=== PATIENT | female | born 1950 | race Caucasian/White ===

== ENCOUNTER 2022-11-05 10:08 | Outpatient (OUT) | payer MEDICARE, SELFPAY ==
--- NOTE | 2022-11-05 10:11 | CT_ITS ---
[address] [address] Patient Name: SD REHMAN MRN: [id number] date: 1950 Sex: F Assigned Patient Location: CT Current Patient Location: CT Accession/Order Number: [id number] Exam Date: 11/05/2022 10:15 Report Date: 11/05/2022 11:03 At the request of: BREANNE GAO Procedure: CT lung screening low-dose EXAMINATION: CT lung screening low-dose HISTORY: Z12.2 Lunch cancer screening, F17.219 Nicotine dependence COMPARISON: CT chest 11/04/2021 TECHNIQUE: Axial, Coronal, and Sagittal images were created without the administration of IV contrast material. Dose reduction techniques were achieved by using automated exposure control and/or adjustment of mA and/or kV according to patient size and/or use of iterative reconstruction technique. FINDINGS: LUNGS: Stable nodule/scarring within lateral right upper lobe since at least 2018. No new nodules or infiltrates. Mild emphysematous changes. PLEURA: No mass, effusion, or pneumothorax. VASCULATURE: No abnormality. YOGESH: No mass or pathologic adenopathy. MEDIASTINUM: No mass or pathologic adenopathy. CARDIAC: Atherosclerotic coronary artery disease. AORTA: No aneurysm or dissection. CHEST WALL: No mass or axillary adenopathy BONES: Marked degenerative changes the glenohumeral joints. Multilevel degenerative changes of thoracic spine; no fracture. LIMITED ABDOMEN: Grossly stable bilateral renal lesions/cysts only partially included on today's study. OTHER: Negative. CT/CT lung screening low-dose IMPRESSION: 1. Lung-RADS 2- Benign Appearance or Behavior. Nodules with a very low likelihood of becoming a clinically active cancer due to size or lack of growth. Follow-up CT Chest in 1 year. Electronically authenticated by: TERESA AZUL Date: 11/05/2022 11:03
== END 2022-11-05 10:09 | disposition home or self-care (01) ==
LOC: CT 10:09
PROVIDERS: PCP Family Medicine; Visit Provider Internal Medicine
DX: F17.219 Nicotine dependence, cigarettes, with unspecified nicotine-induced disorders (principal)
CPT/HCPCS: 71271

== ENCOUNTER 2022-12-11 09:36 | Outpatient (OUT) | payer MEDICARE, SELFPAY ==
[2022-12-11 10:07] LABS: Hematocrit 39.6 % (36.0-48.0); Hemoglobin 12.4 g/dL (12.0-16.0)
[2022-12-11 11:38] LABS: Albumin Level 3.1 g/dL (3.4-5.0); Anion Gap 14.7; BUN Creatinine Ratio 20.4; Calcium 9.3 mg/dL (8.5-10.1); Carbon Dioxide 22.5 mmol/L (21.0-32.0); Chloride 104 mmol/L (98-107); Estimated GFR (African America 46 (>=60); Estimated GFR (Non-African Ame 38 (>=60); Glucose 110 mg/dL (74-106); Phosphorus 3.2 mg/dL (2.6-4.7); Potassium 4.2 mmol/L (3.5-5.1); Sodium 137 mmol/L (136-145); Uric Acid 5.5 mg/dL (2.6-6.0)
[2022-12-11 11:43] LABS: Percent Iron Saturation 15.6 %
[2022-12-11 16:14] LABS: Mean Corpuscular HGB Conc 31.3 g/dL (29.9-35.2); Platelet Count 367 10^3/uL (150-450); Red Blood Count 3.91 10^6/uL (4.20-5.40); Red Cell Distribution Width 15.4 % (11.0-15.0); White Blood Count 10.1 10^3/uL (4.0-11.0)
[2022-12-11 16:17] LABS: Hematocrit 39.6 % (36.0-48.0); Hemoglobin 12.4 g/dL (12.0-16.0)
[2022-12-12 14:08] LABS: PTH, Intact 93 pg/mL (15-65)
== END 2022-12-11 09:37 | disposition home or self-care (01) ==
LOC: LAB 09:36
PROVIDERS: PCP Family Medicine; Visit Provider Internal Medicine
DX: I12.9 Hypertensive chronic kidney disease with stage 1 through stage 4 chronic kidney disease, or unspecified chronic kidney disease (principal); N18.32 Chronic kidney disease, stage 3b; N25.81 Secondary hyperparathyroidism of renal origin; M10.9 Gout, unspecified; R80.9 Proteinuria, unspecified; D63.1 Anemia in chronic kidney disease
CPT/HCPCS: 36415; 80069; 81001; 82306; 82570; 82728; 83540; 83550; 83970; 84156; 84550; 85014; 85018; 85027

== ENCOUNTER 2023-08-20 12:50 | Outpatient (OUT) | payer MEDICARE, SELFPAY ==
[2023-08-20 13:33] LABS: Hematocrit 44.1 % (36.0-48.0); Hemoglobin 14.2 g/dL (12.0-16.0); Mean Corpuscular HGB Conc 32.2 g/dL (29.9-35.2); Mean Corpuscular Hemoglobin 32.2 pg (26.7-34.0); Mean Platelet Volume 9.8 fL (9.5-13.5); Platelet Count 388 10^3/uL (150-450); Red Blood Count 4.41 10^6/uL (4.20-5.40); White Blood Count 13.5 10^3/uL (4.0-11.0)
[2023-08-20 13:36] LABS: Albumin Level 3.5 g/dL (3.4-5.0); Anion Gap 17.3; BUN Creatinine Ratio 17.1; Calcium 9.2 mg/dL (8.5-10.1); Carbon Dioxide 21.2 mmol/L (21.0-32.0); Chloride 100 mmol/L (98-107); Estimated GFR (African America 35 (>=60); Estimated GFR (Non-African Ame 29 (>=60); Glucose 107 mg/dL (74-106); Phosphorus 3.1 mg/dL (2.6-4.7); Potassium 4.5 mmol/L (3.5-5.1); Sodium 134 mmol/L (136-145)
[2023-08-20 13:36] LABS: Bilirubin Urine NEGATIVE (NEGATIVE); Blood Urine NEGATIVE (NEGATIVE); Clarity Urine CLEAR (CLEAR); Color Urine LT. YELLOW (YELLOW); Glucose Urine UA NEGATIVE (NEGATIVE); Ketones Urine NEGATIVE (NEGATIVE); Leukocyte Esterase Urine NEGATIVE (NEGATIVE); Nitrite Urine NEGATIVE (NEGATIVE); Protein Urine NEGATIVE (NEG/TRACE); Urobilinogen Urine 0.2 EU/dL (0.2-1.0); pH Urine 5.5 (5.0-9.0)
[2023-08-20 14:18] LABS: Creatinine Urine Random 41.92 mg/dL (20.00-300.00); Protein Creatinine Ratio Urine 0.44; Total Protein Urine Random 18.5 mg/dL (<=11.9)
[2023-08-20 14:51] LABS: Bacteria Urine NONE SEEN #/HPF (NONE SEEN); Cast Seen? NONE SEEN #/LPF (NONE SEEN); Crystals Seen? None Seen #/HPF (None Seen); Mucus Urine NONE SEEN (NONE SEEN); RBC Urine NONE SEEN #/HPF (0-2); Squamous Epithelial Cell Urine NONE SEEN #/LPF (NONE/RARE); WBC Urine NONE SEEN #/HPF (NONE SEEN)
[2023-08-20 15:23] LABS: Percent Iron Saturation 18.8 %
[2023-08-21 11:11] LABS: PTH, Intact 104 pg/mL (15-65)
== END 2023-08-20 12:51 | disposition home or self-care (01) ==
PROVIDERS: PCP Family Medicine; Visit Provider Internal Medicine
DX: I12.9 Hypertensive chronic kidney disease with stage 1 through stage 4 chronic kidney disease, or unspecified chronic kidney disease (principal); N18.32 Chronic kidney disease, stage 3b; N25.81 Secondary hyperparathyroidism of renal origin; M10.9 Gout, unspecified; R80.9 Proteinuria, unspecified; E61.1 Iron deficiency
CPT/HCPCS: 36415; 80069; 81001; 82306; 82570; 82728; 83540; 83550; 83735; 83970; 84156; 84550; 85027

== ENCOUNTER 2023-08-31 13:46 | Outpatient (OUT) | payer MEDICARE, SELFPAY ==
--- NOTE | 2023-08-31 13:50 | MM_ITS ---
Patient Name: SD REHMAN MR#: [id number] : 1950 Exam Date: 08/31/2023 Ordering Doctor: DR ASH ODOM RADIOLOGY REPORT PROCEDURE: MM TOMOSYNTHESIS SCREENING BI COMPARISON: MG MAMM LAKESHIA SCRN W CAD DIG, 02/15/2013. MG MAMM DX 3D RT CAD, 07/23/2021. INDICATIONS: Screening Calculator Name NCI Breast Cancer Risk Assessment Tool 5 Year Breast Cancer Risk 2.10% Lifetime Breast Cancer Risk 5.40% Personal Breast Cancer No Personal Ovarian Cancer No Treatments None Family Cancers Father with lung cancer at age ~60. LOCATION: [facility] BREAST COMPOSITION: The breasts are heterogeneously dense,which may obscure small masses. FINDINGS: DIAGNOSTIC CATEGORY 0--INCOMPLETE: NEED ADDITIONAL IMAGING EVALUATION. Bilateral nodular parenchymal pattern significantly changed from prior exam. Two new focal nodules are identified in the right breast 6 o'clock position 1 in the anterior breast a 2nd in the mid breast. Spot imaging and ultrasound follow-up is recommended New scattered nodularity with calcifications identified in the mid inner half of the left breast. Spot imaging and ultrasound follow-up recommended RECOMMENDATIONS: ADDITIONAL MAMMOGRAPHIC VIEWS REQUIRED: BILATERAL BREASTS - spot compression views ULTRASOUND: BILATERAL BREASTS PLEASE NOTE: A NORMAL MAMMOGRAM DOES NOT EXCLUDE THE POSSIBILITY OF BREAST CANCER. A CLINICALLY SUSPICIOUS PALPABLE LUMP SHOULD BE BIOPSIED. Dictated by: Madan Bocanegra MD on 08/31/2023 at 14:52 Approved by: Madan Bocanegra MD on 08/31/2023 at 15:00
== END 2023-08-31 13:47 | disposition home or self-care (01) ==
LOC: MAMMO 13:46
PROVIDERS: PCP Family Medicine; Visit Provider Family Medicine
DX: Z12.31 Encounter for screening mammogram for malignant neoplasm of breast (principal); Z80.1 Family history of malignant neoplasm of trachea, bronchus and lung; N63.15 Unspecified lump in the right breast, overlapping quadrants; N63.25 Unspecified lump in the left breast, overlapping quadrants
CPT/HCPCS: 77063; 77067

== ENCOUNTER 2023-09-08 13:39 | Outpatient (OUT) | payer MEDICARE, SELFPAY ==
--- NOTE | 2023-09-08 13:44 | US_ITS ---
Patient Name: SD REHMAN MR#: [id number] : 1950 Exam Date: 09/08/2023 Ordering Doctor: DR ASH ODOM RADIOLOGY REPORT PROCEDURE: MM DIAGNOSTIC MAMMO BI, 09/08/2023, 13:46 US BREAST BI LIMITED, 09/08/2023, 14:08 COMPARISON: MM TOMOSYNTHESIS SCREENING BI, 08/31/2023. MG MAMM DX 3D RT CAD, 07/23/2021. MG MAMM LAKESHIA SCRN W CAD DIG, 02/15/2013. INDICATIONS: Abnormal Mammogram Calculator Name NCI Breast Cancer Risk Assessment Tool 5 Year Breast Cancer Risk 2.10% Lifetime Breast Cancer Risk 5.40% Personal Breast Cancer No Personal Ovarian Cancer No Treatments None Family Cancers Father with lung cancer at age ~60. LOCATION: [facility] BREAST COMPOSITION: The breasts are heterogeneously dense,which may obscure small masses. FINDINGS: DIAGNOSTIC CATEGORY 4--SUSPICIOUS FOR MALIGNANCY. FINDING DOES NOT EXHIBIT CLASSIC FINDINGS OF BREAST CANCER: RIGHT BREAST: Within the retroareolar region is a 7 x 6 x 5 mm heterogeneous mass with adjacent feeder vessels extending into the structure and slight posterior shadowing. Ultrasound-guided core biopsy is recommended. Additional hypoechoic oval structures favoring cysts are seen within this area. LEFT BREAST: Several small hypoechoic structures suspected represent cysts and slightly complex cyst at the 9 o'clock position. Small hyperechoic area within the fat suspected to represent a lipoma. No additional evaluation recommended at this time. RECOMMENDATIONS: ULTRASOUND-GUIDED CORE BIOPSY: RIGHT BREAST PLEASE NOTE: A NORMAL MAMMOGRAM DOES NOT EXCLUDE THE POSSIBILITY OF BREAST CANCER. A CLINICALLY SUSPICIOUS PALPABLE LUMP SHOULD BE BIOPSIED. Dictated by: Trey Ramirez M.D. on 09/08/2023 at 14:47 Approved by: Trey Ramirez M.D. on 09/08/2023 at 14:54
--- OUTSIDE RECORDS SUMMARY | 2023-09-08 14:13 | XMS_ITS | CCD ---
Author Organization [facility] Care Team Providers Care Application Security Engineer Name Role Phone PHYSICIAN, DEFAULT Unavailable Unavailable PHYSICIAN, DEFAULT Unavailable Unavailable Malina Lafleur Unavailable Odell Jones Unavailable Curtis Watkins Unavailable Jignesh He Attending Unavailable PATRICK ODOM Primary Care Unavailable Jignesh He Admitting Unavailable Jignesh He Attending Unavailable PATRICK ODOM Primary Care Unavailable Jignesh He Admitting Unavailable Furlong Patrick SANTA Primary Care Provider Ruby, Olivia R Primary Care Provider VITA JOSHI Referring Unavailable VITA JOSHI Attending Unavailable BEHZADLOPATRICK MILLER Primary Care Unavailable VITA JOSHI Attending Unavailable BEHZADLONGPATRICK Primary Care Unavailable MADELYN, VITA Referring Unavailable VITA JOSHI Attending Unavailable BEHZADLOPATRICK MILLER Primary Care Unavailable MADELYN, VITA Referring Unavailable ABHYANKARKRISHNAEK Attending Unavailable KUNS, OLIVIA R Primary Care Unavailable ABHYANKAR DENNIS Referring Unavailable KUNS, OLIVIA R Primary Care Unavailable KAREN, ODELL Referring Unavailable KUNS, OLIVIA R Primary Care Unavailable ABHYANKAR, DENNIS Attending Unavailable SUSI .MOHAMUD Attending Unavailable LEI, DR PATRICK Roche Primary Care Unavailable SUSI .MOHAMUD Admitting Unavailable SUSI .MOHAMUD Consulting Unavailable TIMMIS, DR IZAGUIRRE Consulting Unavailable TIMMIS, DR IZAGUIRRE Attending Unavailable TIMROBINA, DR IZAGUIRRE Admitting Unavailable LEI, DR PATRICK Roche Primary Care Unavailable DAY GALICIA Consulting Unavailable MISC, DR CHANG Admitting Unavailable MISC, DR CHANG Consulting Unavailable MISC, DR CHANG Attending Unavailable FURLONG, DR PATRICK Roche Primary Care Unavailable KAREN, ODELL Admitting Unavailable KAREN, ODELL Consulting Unavailable KAREN, ODELL Attending Unavailable FURLONG, DR PATRICK Roche Primary Care Unavailable FURLONG, DR PATRICK Roche Primary Care Unavailable SUSI ., MOHAMUD Admitting Unavailable SUSI ., MOHAMUD Consulting Unavailable SUSI ., MOHAMUD Attending Unavailable SUSI ., MOHAMUD Admitting Unavailable FURLONG, DR PATRICK Roche Primary Care Unavailable SUSI ., MOHAMUD Consulting Unavailable SUSI ., MOHAMUD Attending Unavailable KAREN, ODELL Admitting Unavailable KAREN, ODELL Attending Unavailable FURLONG, DR PATRICK Roche Primary Care Unavailable JORGE, HENOK Consulting Unavailable JORGE, HENOK Attending Unavailable JORGE, HENOK Admitting Unavailable FURLONG, DR PATRICK Roche Primary Care Unavailable KAREN, ODELL Admitting Unavailable KAREN, ODELL Consulting Unavailable KAREN, ODELL Attending Unavailable FURLONG, DR PATRICK Roche Primary Care Unavailable TIMMIS, DR IZAGUIRRE Consulting Unavailable TIMMIS, DR IZAGUIRRE Admitting Unavailable TIMMIS, DR IZAGUIRRE Attending Unavailable FURLONG, DR PATRICK Roche Primary Care Unavailable JESSE, CHRIS Attending Unavailable JESSE, CHRIS Admitting Unavailable FURLONG, DR PATRICK Roche Primary Care Unavailable ZIEBER, DR TERESA Akbar Consulting Unavailable JESSE, CHRIS Consulting Unavailable KUNS, DR OLIVIA Akbar Attending Unavailable KUNS, DR OLIVIA Akbar Admitting Unavailable KUNS, DR OLIVIA Akbar Primary Care Unavailable ZIEBER, DR TERESA Akbar Consulting Unavailable KUNS, DR OLIVIA Akbar Consulting Unavailable KAREN, ODELL Admitting Unavailable KAREN, ODELL Consulting Unavailable KAREN, ODELL Attending Unavailable FURLONG, DR PATRICK Roche Primary Care Unavailable SUSI ., MOHAMUD Admitting Unavailable FURLONG, DR PATRICK Roche Primary Care Unavailable SUSI ., MOHAMUD Consulting Unavailable SUSI ., MOHAMUD Attending Unavailable KAREN, ODELL Admitting Unavailable KAREN, ODELL Consulting Unavailable KAREN, ODELL Attending Unavailable FURLONG, DR PATRICK Roche Primary Care Unavailable FURLONG, DR PATRICK Roche Consulting Unavailable FURLONG, DR PATRICK Roche Primary Care Unavailable SAMSA ., BREANNE Attending Unavailable SAMSA ., BREANNE Admitting Unavailable SAMSA ., BREANNE Consulting Unavailable JESSE, CHRIS Admitting Unavailable JESSE, CHRIS Consulting Unavailable JESSE, CHRIS Attending Unavailable FURLONG, DR PATRICK Roche Primary Care Unavailable FURLONG, DR PATRICK Roche Primary Care Unavailable MENDOZA, DR ELE Consulting Unavailable MENDOZA, DR LEE Attending Unavailable MENDOZA, DR LEE Admitting Unavailable HAY ., DR GAYLE Consulting Unavailable HAY ., DR GAYLE Attending Unavailable HAY ., DR GAYLE Admitting Unavailable FURLONG, DR PATRICK Roche Primary Care Unavailable ASHLEY WEAVER Consulting Unavailable NEFCY, NGHIA Consulting Unavailable LENNYROBYN Consulting Unavailable MISC, DR CHANG Attending Unavailable MISC, DR CHANG Admitting Unavailable FURLONG, DR PATRICK Roche Primary Care Unavailable FURLONG, DR PATRICK Roche Primary Care Unavailable SAMSA ., BREANNE Consulting Unavailable SAMSA ., BREANNE Attending Unavailable SAMSA ., BREANNE Admitting Unavailable JESSE, CHRIS Admitting Unavailable JESSE, CHRIS Attending Unavailable FURLOSAM, DR PATRICK Roche Primary Care Unavailable KAREN, ODELL Admitting Unavailable KAREN, ODELL Consulting Unavailable KAREN, ODELL Attending Unavailable FURLONG, DR PATRICK Roche Primary Care Unavailable SUSI ., MOHAMUD Attending Unavailable FURLOSAM, DR PATRICK Roche Primary Care Unavailable SUSI ., MOHAMUD Admitting Unavailable SUSI ., MOHAMUD Consulting Unavailable ABBAS, DR ALFARO Consulting Unavailable ABBAS, DR ALFARO Attending Unavailable ABBAS, DR ALFARO Admitting Unavailable FURLOSAM, DR PATRICK Roche Primary Care Unavailable LATHA, DR TERESA Akbar Consulting Unavailable Furlong Patrick SANTA [facility] mill[facility] DO Primary Care Provider [phone] RUPINDER GIORDANO Attending Unavailable RUPINDER GIORDANO Attending Unavailable RUPINDER GIORDANO Attending Unavailable VITA JOSHI Attending Unavailable NAVIN CLARK Referring Unavailable FURLONG, PATRICK Primary Care Unavailable SELF, SELF Referring Unavailable VITA JOSHI Attending Unavailable BEHZADLONG, PATRICK Primary Care Unavailable VITA JOSHI Referring Unavailable VITA JOSHI Attending Unavailable BEHZADLONG, PATRICK Primary Care Unavailable VITA JOSHI Referring Unavailable VITA JOSHI Attending Unavailable FURLONG, PATRICK Primary Care Unavailable FURLONG, PATRICK Primary Care Unavailable VITA JOSHI Attending Unavailable AMBER, NAVIN Referring Unavailable AMBER, NAVIN Attending Unavailable FURLONG, PATRICK Primary Care Unavailable AMBER, NAVIN Referring Unavailable AMBER, NAVIN Attending Unavailable SELF, SELF Referring Unavailable FURLONG, PATRICK Primary Care Unavailable AMBER, NAVIN Attending Unavailable AMBER, NAVIN Referring Unavailable FURLONG, PATRICK Primary Care Unavailable FURLONG, PATRICK G Attending Unavailable FURLONG, PATRICK G Referring Unavailable FURLONG, PATRICK G Primary Care Unavailable FURLONG, PATRICK G Referring Unavailable FURLONG, PATRICK G Primary Care Unavailable Medications Current Medications Medication Drug Class(es) Dates Sig (Normalized) Sig (Original) 8 hr acetaminophen 650 mg extended release oral tablet (20 sources) Start: 08-20-2023 Acetaminophen (Tylenol Arthritis Pain) 650 mg tablet extended release Active 1300 MG PO Every 8 hours August 20, 2023 12:00am Start: 06-09-2022 take 2 tablets by mo uth every four hours as needed Acetaminophen 325 MG tablet Take 2 tablets by mouth every 4 hours as needed for Mild Pain. Do not exceed 4000mg of Tylenol in 24 hour period. 50 tablet 1 06/09/2022 Active Start: 06-09-2022 End: 06-11-2022 take 1 tablet by mouth every six hours acetaminophen (TYLENOL) tablet 1,000 mg End: 06-09-2022 take 1 tablet by mouth every eight hours as needed for pain acetaminophen (TYLENOL ARTHRITIS) 650 mg 8 hr tablet Take 1 tablet (650 mg total) by mouth every 8 (eight) hours as needed for pain. 0 Active acetaminophen 32 5 mg cap Take 500 capsules by mouth every 4 hours as needed. 0 Active Comment on above: Take 500 capsules by mouth every 4 hours as needed. [id number] 200 actuat albuterol 0.09 mg/actuat metered dose inhaler (20 sources) beta2-Adrenergic Agonist Start: 08-20-2023 take 1 puff(s) by inhalation every six hours Albuterol Sulfate (Ventolin Hfa) 90 mcg/actuation HFA aerosol inhaler Active 2 PUFF INHALATION Every 6 hours August 20, 2023 12:00am take 2 puff(s) by in halation every four hours as needed albuterol 108 (90 Base) MCG/ACT Aero Katrin n inhaler albuterol sulfate HFA 90 mcg/actuation aerosol inhaler INHALE 2 PUFFS EVERY 4 HOURS NEEDED FOR SHORTNESS OF BREATH Active take 2 puff(s) by in halation every six hours as needed for wheezing albuterol (PROVENTIL HFA;VENTOLIN HFA) 9 0 mcg/actuation inhaler Inhale 2 puffs every 6 (six) hours as needed for wheezing. 0 Active take 2 puff(s) by in halation every six hours as needed Ventolin HFA 108 (90 Base) MCG/ACT 2 puf fs as needed Inhalation every 6 hrs Active Comment on above: albuterol sulfate HF A 90 mcg/actuation aerosol inhaler INHALE 2 PUFFS EVERY 4 HOURS NEEDED FOR SHORTNESS OF BREATH alendronic acid 70 mg oral tablet (4 sources) Bisphosphonate take 1 tablet by mouth once daily Alendronate Sodium 70 MG 1 tablet 30 minutes before the first food, beverage or medicine of the day with plain water Orally Active take 1 tablet by mouth every thu Fosamax 70 MG 1 tablet Orally once a month Active allopurinol 300 mg oral tablet (20 sources) Xanthine Oxidase Inhibitor Start: 08-20-2023 take 300 mg by mouth once daily Allopurinol Active 300 MG PO Daily August 20, 2023 12:00am Start: 08-11-2022 take 1 tablet by once daily allopurinoL (ZYLOPRIM) 300 mg tablet Indications: Gout, unspecified TAKE 1 TABLET BY MOUTH EVERY DAY 90 tablet 2 08/11/2022 Active Start: 06-09-2022 End: 06-11-2022 take 300 mg by mouth once daily 300 mg, Oral, DAILY EA RLY EVENING, First dose on Thu06/09/22 at 1800, Until Discontinued Comment on above: allopurinol 300 mg t ablet TAKE 1 TABLET BY MOUTH EVERY DAY amoxicillin 500 mg oral capsule (6 sources) Penicillin-class Antibacterial Start: End: Amoxicillin 500 MG capsule Take 4 capsules 1 hour before procedure 8 capsule 1 06/25/2022 06/26/2023 Active apixaban 5 mg oral tablet (12 sources) Factor Xa Inhibitor Start: take 5 mg by mouth twice daily Apixaban Active 5 MG PO Twice daily August 20, 2023 12:00am Start: 06-09-2022 End: 07-09-2022 take 1 tablet by mouth every twelve hours apixaban 5 MG tablet Take 1 tablet by mouth every 12 hours. This medication is for blood clot prevention 60 tablet 06/09/2022 Active Start: 06-09-2022 End: 06-14-2022 apixaban 2.5 MG tablet Take 1 tablet by mouth every 12 hours for 5 days. Once complete, begin regimen of Eliquis 5mg twice a day. 10 tablet 0 06/09/2022 Active take 1 tablet by brittny th every twelve hours Eliquis 5 MG 1 tablet Orally Twice a day Active 12 hr buPROPion hydrochloride 150 mg extended release oral tablet (1 source) Aminoketone take 1 tablet by mouth every twelve hours buPROPion HCl ER (SR) 150 MG 1 tablet in the morning Orally TWICE A DAY Active Calcium + D3 600-200 MG-UNIT (2 sources) take 1 tablet by mouth once daily Calcium + D3 600-200 MG-UNIT 1 tablet with a meal Orally Once a day Active cholecalciferol 0.025 mg oral tablet (7 sources) Vitamin D Start: take 1000 [IU] by mouth once daily Cholecalciferol (Vitamin D3) Active 1000 UNIT PO Daily August 20, 2023 12:00am take 1 capsule by mo uth in the morning cholecalciferol, vitamin D3, 25 mcg (1,0 00 unit) capsule Take 1 capsule (1,000 Units total) by mouth in the morning. 0 Active take 1 tablet by brittny th every twenty-four hours Vitamin D 25 MCG (1000 UT) 1 tablet Oral ly Once a day Active Comment on above: Take 1,000 Units by mouth. cloNIDine hydrochloride 0.1 mg oral tablet (20 sources) Central alpha-2 Adrenergic Agonist Start: 08-20-2023 take 0.1 mg by mouth twice daily Clonidine Hcl Active 0.1 MG PO Twice daily August 20, 2023 12:00am Start: 02-13-2023 take 1 tablet by brittny th twice daily cloNIDine (CATAPRES) 0.1 mg tablet Indications: Essential (primary) hypertension TAKE 1 TABLET BY MOUTH TWICE A DAY 180 tablet 1 02/13/2023 Active Start: 06-09-2022 End: 06-11-2022 take 0.1 mg by mouth twice daily 0.1 mg, Oral, 2 TIMES DAILY, First dose on Thu06/09/22 at 1700, Until Discontinued All for blood pressure less than 1 20 mmHg Comment on above: clonidine HCl 0.1 mg tablet colchicine 0.6 mg oral tablet (20 sources) Start: 08-20-2023 take 0.6 mg by mouth once Colchicine Active 0.6 MG PO Once August 20, 2023 12:00am take 1 tablet by brittny once daily as needed colchicine 0.6 MG tablet colchicine 0.6 mg tablet TAKE 1 TABLET BY MOUTH EVERY DAY NEEDED FOR FLARE Active Comment on above: colchicine 0.6 mg ta blet TAKE 1 TABLET BY MOUTH EVERY DAY NEEDED FOR FLARE 24 hr dilTIAZem hydrochloride 240 mg extended release oral capsule (20 sources) Calcium Channel Michael Start: 08-20-2023 take 240 mg by mouth once Diltiazem Hcl Active 240 MG PO Once August 20, 2023 12:00am Start: 06-09-2022 End: 06-11-2022 180 mg, Oral, 2 TIMES DAILY, First dose on Thu06/09/22 at 1700, Until Discontinued Course for blood pressure less than 1 20 mmHg or heart rate less than 55 bpm take 1 capsule by mo ut twice daily diltiazem 240 MG Cap SR 24HR Take 1 capsule by mouth 2 times daily. Active dilTIAZem (CARDI ZEM) 120 mg tablet Take 120 mg by mouth. 0 Active take 1 capsule by mo uth twice daily diltiazem 120 MG Cap SR 24HR diltiazem CD 120 mg capsule,extended release 24 hr TAKE 1 CAPSULE BY MOUTH TWICE A DAY 0 Active Comment on above: Take 120 mg by mouth . docusate sodium 100 mg oral capsule (10 sources) Start: 3 End: 3 take 1 capsule by mouth twice daily Docusate 100 MG capsule Take 1 capsule by mouth 2 times daily. Hold for loose stools. 60 capsule 06/09/2022 Active DULoxetine 60 mg delayed release oral capsule (20 sources) Serotonin and Norepinephrine Reuptake Inhibitor Start: 4 take 1 capsule by mouth twice daily Duloxetine (Cymbalta) 60 mg capsule,delayed release(DR/EC) Active 60 MG PO Twice daily August 20, 2023 12:00am Start: 06-09-2022 End: 06-11-2022 take 1 capsule by mouth once daily at bedtime 60 mg, Oral, DAILY AT BEDTIME, First dose on Thu06/09/22 at 2100, Until Discontinued Swallow capsule whole; do not crush or chew. May add contents of capsule to apple juice or applesauce (but NOT chocolate) taking care not to crush the pellets and damage the enteric coating. Start: 11-05-20[address] [facility] once daily DULoxetine [address] Particles capsule DR Take 1 capsule by mouth daily. 11/05/2021 Active Comment on above: Take 60 mg by mouth. ferrous sulfate 325 mg oral tablet (10 sources) Start: 06-11-2022 take 1 tablet by mouth twice daily ferrous sulfate 325 (65 Fe) MG tablet Take 1 tablet by mouth 2 times daily. 60 tablet 1 06/11/2022 Active Start: 06-11-2022 End: 06-11-2022 ferrous sulfate tablet 325 m g fluticasone propionate 0.05 mg/actuat metered dose nasal spray (8 sources) Corticosteroid Start: 08-20-2023 Fluticasone Pr opionate (Flonase Allergy Relief) 50 mcg/actuation spray,suspension Active 1 SPRAY INTRANASAL Daily August 20, 2023 12:00am Start: 05-29-2022 take 2 spray(s) nasa l route in the morning fluticasone (FLONASE SENSIMIST) 27.5 mcg/actuation nasal spray Administer 2 sprays into each nostril in the morning. 9.1 g 2 05/29/2022 Active Start: 12-17-2020 take 1 spray(s) nasa l route once daily Flonase Allergy Relief 50 MCG/ACT 1 spray in each nostril Nasally Once a day for 14 day(s) Nov, Active Noabtvlpvwu-Emtfhbixz-Bnbyth er (19 sources) Anticholinergic, Corticosteroid, beta2-Adrenergic Agonist Start: 08-20-2023 Mikmmtgkdyx-Traicpqvb-Gnwnbf er (Trelegy Ellipta) 100-62.5-25 mcg blister with device Active 1 INH INHALATION Daily August 20, 2023 12:00am Start: 03-25-2022 take 1 puff(s) by [facility] once daily TRELEGY ELLIPTA 100-62.5-25 mcg blister with device INHALE 1 PUFF BY MOUTH ONCE EVERYDAY *RINSE MOUTH AFTER USE* 0 03/25/2022 Active take 1 puff(s) by in halation once daily Wvunbowvukb-Hhddahfuo-Hsssrt (Trelegy Ellipta) 100-62.5-25 MCG/INH Aerosol Powder, breath activated inhaler Inhale 1 puff daily. Active fluticasone-umec lidin-vilanter (TRELEGY ELLIPTA) 100-62.5-25 mcg inhalation powder 1 puff 0 Active Comment on above: 1 puff furosemide 20 mg oral tablet (20 sources) Loop Diuretic Start: 08-20-2023 take 20 mg by mouth once daily Furosemide Active 20 MG PO Daily August 20, 2023 12:00am Start: 06-09-2023 take 1 tablet by brittny once daily furosemide (LASIX) 20 mg tablet Take 1 tablet (20 mg total) by mouth daily. 90 tablet 1 06/09/2023 Active Start: 11-26-2021 End: 06-08-2023 take 1 tablet by mouth once daily furOSEmide 20 MG tablet TAKE 1 TABLET BY MOUTH EVERY DAY FOR 90 DAYS 11/26/2021 Active Comment on above: TAKE 1 TABLET BY BRITTNY EVERY DAY FOR 90 DAYS loratadine 10 mg oral tablet (12 sources) Loratadine 10 MG tablet Take 1 tablet by mouth as needed. Active Comment on above: Take 10 mg by mouth. losartan potassium 50 mg oral tablet (2 sources) Angiotensin 2 Receptor Michael take 1 tablet by mouth every twenty-four hours Losartan Potassium 50 MG 1 tablet Orally Once a day Active jqomtjwa-thwv-QQ-calci um &mins (THERAGRAN-M) 9 mg iron-400 mcg tablet (1 source) Start: 3 vakrkzsu-pzjh-AW-c alcium &mins (THERAGRAN-M) 9 mg iron-400 mcg tablet Take 1 tablet by mouth nightly. 0 06/09/2022 Active omeprazole 20 mg delayed release oral capsule (9 sources) Proton Pump Inhibitor Start: 3 take 1 capsule by mouth once daily omeprazole [address] capsule Take 1 capsule by mouth daily. 30 capsule 06/09/2022 Active oxyCODONE hydrochloride 5 mg oral tablet (8 sources) Opioid Agonist Start: 3 End: 3 take 5-10 mg by mouth every four hours as needed oxyCODONE (ROXICODONE) tablet 5-10 mg Start: 06-09-2022 End: 06-17-2022 oxyCODONE 5 MG tablet Indica tions: Acute postoperative pain of right knee Take one to two tabs every 4-6 hours as needed for severe pain. Wean as tolerated 30 tablet 06/10/2022 Active rosuvastatin calcium 10 mg oral tablet (19 sources) HMG-CoA Reductase Inhibitor Start: 08-20-2023 take 10 mg by mouth once daily Rosuvastatin Active 10 MG PO Daily August 20, 2023 12:00am Start: 12-24-2021 take 1 tablet by brittny th once daily in the morning Rosuvastatin 20 MG tablet Take 1 tablet by mouth daily. am 12/24/2021 Active take 1 tablet by brittny th every twenty-four hours Rosuvastatin Calcium 10 MG 1 tablet Orally Once a day Active Comment on above: Take 20 mg by mouth once daily. spironolactone 25 mg oral tablet (18 sources) Aldosterone Antagonist Start: 08-20-19 take 25 mg by mouth once daily Spironolactone Active 25 MG PO Daily August 20, 2023 12:00am Start: 06-09-2023 take 1 tablet by brittny th in the morning spironolactone (ALDACTONE) 25 mg tablet Take 1 tablet (25 mg total) by mouth in the morning. 90 tablet 1 06/09/2023 Active Start: 12-31-2021 End: 06-08-2023 take 1 tablet by mouth once daily Spironolactone 25 MG tablet Take 1 tablet by mouth daily. 12/31/2021 Active Comment on above: Take 25 mg by mouth once daily. Stiolto Respimat Inhalation [place] (4 sources) take 2 puff(s) by inhalation once daily Stiolto Respimat Inhalation [place] 2 puffs Once daily Active therapeutic multivitamin-minerals tablet (9 sources) Start: 3 take 1 tablet by mouth at bedtime therapeutic multivitamin-mineral s tablet Take 1 tablet by mouth at bedtime. 30 tablet 06/09/2022 Active Start: 06-09-2022 take 1 tablet by brittny th at bedtime therapeutic multivitamin-minerals tablet Take 1 tablet by mouth at bedtime. 30 tablet 0 06/09/2022 Active Trelegy Ellipta 100 mcg (1 source) take 1 puff(s) by in halation once daily Trelegy Ellipta 100 mcg 1 puff Inhalation Once a day Active Tylenol 8 Hour 650 MG (6 sources) take 2 tablets by mo uth every eight hours as needed Tylenol 8 Hour 650 MG 2 tablets as needed Orally every 8 hrs Active Vitamin D 25 MCG (1000 UT) (4 sources) take 1 tablet by brittny th once daily Vitamin D 25 MCG (1000 UT) 1 tablet Orally Once a day Active Completed/Discontinued Medications Medication Drug Class(es) Dates Sig (Normalized) Sig (Original) atorvastatin 20 mg oral tablet (1 source) HMG-CoA Reductase Inhibitor Start: 06-10-2022 End: 06-11-2022 take 20 mg by mouth once daily 20 mg, Oral, DAILY, First dose on Thu06/10/22 at 0900, Until Discontinued bisacodyl 10 mg rectal suppository (1 source) Stimulant Laxative Start: 06-09-2022 End: 06-11-2022 bisacodyl (DULCOLAX) suppository 10 mg ceFAZolin 2000 mg injection (1 source) Cephalosporin Antibacterial Start: 06-09-2022 End: 06-10-2022 take 2 g intravenously every eight hours ceFAZolin (ANCEF) 2 g in dextrose 100 mL premix IVPB dexamethasone phosphate 10 mg/ml injectable solution (1 source) Corticosteroid Start: 06-10-2022 End: 06-10-2022 take 10 mg intravenously every twenty-four hours dexAMETHasone (DECADRON) injection 10 mg Start: 06-10-2022 End: 06-10-2022 take 10 mg intravenously every twenty-four hours dexAMETHasone (DECADRON) injection 10 mg docusate sodium 50 mg / sennosides, group home 8.6 mg oral tablet (1 source) Start: 06-09-2022 End: 06-11-2022 senna-docusate (SENOKOT-S) 8.6-50 MG per tablet 2 tablet famotidine 20 mg oral tablet (1 source) Histamine-2 Receptor Antagonist Start: 06-09-2022 End: 06-11-2022 take 20 mg by mouth twice daily 20 mg, Oral, 2 TIMES DAILY, First dose on Thu06/09/22 at 1700, Until Discontinued folic acid 1 mg oral tablet (11 sources) Start: 06-10-2022 End: 06-11-2022 take 1 mg by mouth once daily 1 mg (1,000 mcg), Oral, DAILY, First dose on Thu06/10/22 at 0900, Until Discontinued Folic Acid 800 M CG tablet Take by mouth daily. Active heparin sodium, porcine 10 unt/ml injectable solution (3 sources) Unfractionated Heparin, Anti-coagulant heparin 10 unit/mL injection Inject 5 mL intravenously. 0 Active Comment on above: Inject 5 mL intraven ously. 1 ml HYDROmorphone hydrochloride 1 mg/ml cartridge (2 sources) Opioid Agonist Start: 2022 End: 2022 take 0.5 mg intravenously every four hours as needed HYDROmorphone (DILAUDID) injection 0.5 mg lovastatin 40 mg oral tablet (3 sources) HMG-CoA Reductase Inhibitor lovastatin 40 mg tablet Take 40 mg by mouth. 0 Active Comment on above: Take 40 mg by mouth. meloxicam 15 mg oral tablet (9 sources) Nonsteroidal Anti-inflammatory Drug Start: 2021 End: 2022 take 1 tablet by mouth once daily meloxicam 15 MG tablet Take 15 mg by mouth daily. 0 10/03/2021 06/09/2022 Discontinued (Stop Taking at Discharge) take 1 tablet by brittny once daily as needed Mobic 15 MG 1 tablet Orally ONCE A DAY PRN Active Comment on above: Take 15 mg by mouth. 24 hr metoprolol succinate 100 mg extended release oral tablet (3 sources) beta-Adrenergic Michael metoprolol succinate ER (TOPROL XL) 100 mg Take 100 mg by mouth. 0 Active Comment on above: Take 100 mg by mouth . 2 ml ondansetron 2 mg/ml injection (1 source) Serotonin-3 Receptor Antagonist Start: 06-10-19 End: 06-12-19 take 4 mg intravenously every four hours as needed Ondansetron 4mg/2ml (ZOFRAN) injection 4 mg polymyxin B sulfate 500,000 Units in Sodium chloride 0.9 % 3,000 mL irrigation solution (1 source) Start: 06-10-19 End: 06-12-19 polymyxin B sulfate 500,000 Units in Sodium chloride 0.9 % 3,000 mL irrigation solution rivaroxaban 20 mg oral tablet (13 sources) Factor Xa Inhibitor Start: 02-01-20 End: 06-10-19 take 1 tablet by mouth once daily rivaroxaban (XARELTO) 20 mg tablet Xarelto 20 mg tablet TAKE 1 TABLET BY MOUTH EVERY DAY 0 01/31/2022 Active Comment on above: Xarelto 20 mg tablet TAKE 1 TABLET BY MOUTH EVERY DAY 200 ml ropivacaine hydrochloride 2 mg/ml injection (1 source) Amide Local Anesthetic Start: 06-10-19 End: 06-12-19 ropivacaine (NAROPIN) 0.2 % On-Q pump 750 mL Ropivacaine (NAROPIN) 1 % 400 mg, EPINEPHrine PF (ADRENALIN) 1 MG/ML 1 mg, cloNIDine 100 MCG/ML 205 mcg, Sodium chloride 0.9% 45 mL 88.05 mL (total volume) (1 source) Start: 06-10-19 End: 06-10-19 Ropivacaine (NAROPIN) 1 % 400 mg, EPINEPHrine PF (ADRENALIN) 1 MG/ML 1 mg, cloNIDine 100 MCG/ML 205 mcg, Sodium chloride 0.9% 45 mL 88.05 mL (total volume) sodium bicarbonate 650 mg oral tablet (1 source) Start: 06-11-19 End: 06-12-19 Sodium bicarbonate tablet 650 mg 1000 ml sodium chloride 9 mg/ml injection (3 sources) Start: 06-10-19 End: 06-12-19 Sodium chloride 0.9 % irrigation Start: 06-09-2022 End: 06-10-2022 Sodium chloride 0.9% IV solu tion sodium phosphate, dibasic 35.5 mg/ml / sodium phosphate, monobasic 96.4 mg/ml enema (1 source) Start: 06-09-2022 End: 06-11-2022 sodium phosphate w/sodium biphosphate (FLEETS) enema 1 enema traMADol hydrochloride 50 mg oral tablet (3 sources) Opioid Agonist Start: 02-19-2022 End: 06-09-2022 traMADol 50 MG tablet Indications: Pain in prosthetic joint, sequela 1-2 tabs every 6 hours as needed for severe pain 20 tablet 0 02/19/2022 06/09/2022 Discontinued (Stop Taking at Discharge) Comment on above: Take 1-2 tablets by mouth every 6 hours as needed. tranexamic acid 650 mg oral tablet (1 source) Antifibrinolytic Agent Start: 06-09-2022 End: 06-11-2022 tranexamic acid (LYSTEDA) tablet 1,950 mg vancomycin 1000 mg injection (2 sources) Glycopeptide Antibacterial Start: 06-10-2022 End: 06-10-2022 vancomycin (VANCOCIN) 1,000 mg in dextrose 200 ml premix IVPB Start: 06-09-2022 End: 06-11-2022 Vancomycin (VANCOCIN) inject ion Vancomycin (VANCOCIN) 1,500 mg in Sodium chloride 0.9%, with overfill 565 mL (total volume) IVPB (1 source) Start: 06-09-2022 End: 06-09-2022 Vancomycin (VANCOCIN) 1,500 mg in Sodium chloride 0.9%, with overfill 565 mL (total volume) IVPB varenicline 1 mg oral tablet (14 sources) Partial Cholinergic Nicotinic Agonist Start: 02-20-2022 varenicline (CHANTIX ) 1 mg tablet Take 1 mg by mouth. 0 02/20/2022 Active Varenicline Tart rate, Starter, (Chantix Starting Month ) 0.5 MG X 11 & 1 MG X 42 Tab Therapy Pack Take by mouth. 0 Active Comment on above: Take 1 mg by mouth. zolpidem tartrate 5 mg oral tablet (1 source) gamma-Aminobutyric Acid-ergic Agonist Start: 06-09-2022 End: 06-11-2022 Zolpidem (AMBIEN) tablet 5 mg Problems Active Problems Problem Classification Problem Date Documented Date Episodic/Chronic Cardiac dysrhythmias (17 sources) Unspecified atrial fibrillation; Translations: [Paroxysmal atrial fibrillation] Onset: 2 Chronic Chronic kidney disease (20 sources) Chronic kidney disease stage 4; Translations: [Chronic kidney disease, stage 4 (severe)] Onset: 3 Chronic Chronic kidney disease (12 sources) Chronic kidney disease; Translations: [Chronic kidney disease, stage 3b] Onset: 1 Resolved: 2 Chronic obstructive pulmonary disease and bronchiectasis (20 sources) Chronic obstructive lung disease; Translations: [Chronic obstructive pulmonary disease, unspecified] Onset: 2 Chronic Deficiency and other anemia (1 source) Anemia of renal disease; Translations: [Anemia in chronic kidney disease] Chronic Diabetes mellitus with complications (6 sources) Disorder of kidney due to diabetes mellitus; Translations: [Type 2 diabetes mellitus with diabetic chronic kidney disease] Chronic Diseases of white blood cells (4 sources) Band neutrophil count above reference range; Translations: [Bandemia] Onset: 3 Chronic Disorders of lipid metabolism (17 sources) Hyperlipidemia, unspecified; Translations: [Mixed hyperlipidemia] Onset: 2 Chronic Essential hypertension (18 sources) Essential (primary) hypertension; Translations: [Benign hypertension] Onset: 2 Chronic Genitourinary symptoms and ill-defined conditions (5 sources) Proteinuria, unspecified; Translations: [Proteinuria] Onset: 2 Resolved: 2 Episodic Gout and other crystal arthropathies (20 sources) Gout; Translations: [Gout, unspecified] Onset: 1 Resolved: 2 Chronic Hypertension with complications and secondary hypertension (18 sources) Chronic kidney disease due to hypertension; Translations: [Hypertensive chronic kidney disease with stage 1 through stage 4 chronic kidney disease, or unspecified chronic kidney disease] Onset: 1 Resolved: 2 Chronic Neoplasms of unspecified nature or uncertain behavior (1 source) Neoplasm of unspecified behavior of bone, soft tissue, and skin; Translations: [Neoplasm of unspecified behavior of bone, soft tissue, and skin] Onset: 4 Episodic Nutritional deficiencies (3 sources) Iron deficiency; Translations: [Iron deficiency] Episodic Osteoarthritis (2 sources) Primary generalized (osteo)arthritis; Translations: [Osteoarthritis] Onset: 2 3 Chronic Other acquired deformities (3 sources) Lumbar spondylolisthesis; Translations: [Spondylolisthesis, lumbar region] Episodic Other connective tissue disease (4 sources) Presence of right artificial knee joint; Translations: [Presence of right artificial knee joint] Onset: 2 Chronic Other connective tissue disease (1 source) Presence of unspecified artificial knee joint; Translations: [PRESENCE UNS ARTIFICIAL KNEE JOINT] Onset: 2 Chronic Other connective tissue disease (5 sources) History of right total knee replacement; Translations: [Presence of right artificial knee joint] Chronic Other connective tissue disease (1 source) History of revision of right total knee arthroplasty; Translations: [Presence of right artificial knee joint] Onset: 3 07-06-2022 Chronic Other connective tissue disease (1 source) Pain in right leg; Translations: [PAIN IN RIGHT LEG] Onset: 3 Episodic Other connective tissue disease (4 sources) Other specified soft tissue disorders; Translations: [OTHER SPEC SOFT TISSUE DISORDERS] Onset: 2 Episodic Other diseases of kidney and ureters (7 sources) Secondary hyperparathyroidism; Translations: [Secondary hyperparathyroidism of renal origin] 08-20-2023 Chronic Other diseases of kidney and ureters (6 sources) Secondary hyperparathyroidism of renal origin; Translations: [Secondary hyperparathyroidism (of renal origin)] Onset: 1 Resolved: 2 Chronic Other hematologic conditions (1 source) Macrocytosis - no anemia; Translations: [Other specified diseases of blood and blood-forming organs] Chronic Other lower respiratory disease (4 sources) Other forms of dyspnea; Translations: [OTHER FORMS OF DYSPNEA] Onset: 3 Episodic Other nervous system disorders (1 source) Other chronic pain; Translations: [OTHER CHRONIC PAIN] Onset: 2 Chronic Other nervous system disorders (1 source) Other acute postprocedural pain; Translations: [Pain in joint, lower leg] Episodic Other nutritional; endocrine; and metabolic disorders (1 source) Obesity, unspecified; Translations: [OBESITY UNSPECIFIED] Onset: 2 Chronic Other nutritional; endocrine; and metabolic disorders (1 source) Morbid obesity; Translations: [Morbid (severe) obesity due to excess calories] Onset: 3 06-14-2022 Chronic Other nutritional; endocrine; and metabolic disorders (2 sources) Morbid (severe) obesity due to excess calories; Translations: [Morbid (severe) obesity due to excess calories] Onset: 3 Chronic Other nutritional; endocrine; and metabolic disorders (1 source) Body mass index (BMI) 40.0-44.9, adult; Translations: [Body mass index (BMI) 40.0-44.9, adult] Onset: 4 Chronic Other screening for suspected conditions (not mental disorders or infectious disease) (9 sources) Unspecified abnormal finding in specimens from other organs, systems and tissues; Translations: [Other abnormal and inconclusive findings on diagnostic imaging of breast] Onset: 2 Episodic Other skin disorders (1 source) Disorder of pigmentation, unspecified; Translations: [DISORDER PIGMENTATION UNSPECIFIED] Onset: 3 Episodic Other upper respiratory disease (1 source) Chronic rhinitis; Translations: [Chronic rhinitis] Onset: 3 05-29-2022 Chronic Peripheral and visceral atherosclerosis (5 sources) Peripheral vascular disease, unspecified; Translations: [Intermittent claudication] Onset: 2 Chronic Residual codes; unclassified (4 sources) Obstructive sleep apnea (adult) (pediatric); Translations: [OBSTRUCTIVE SLEEP APNEA] Onset: 2 Chronic Residual codes; unclassified (1 source) Idiopathic hypersomnia with long sleep time; Translations: [IDIO HYPERSOMNIA W/LONG SLEEP TIME] Onset: 2 Chronic Residual codes; unclassified (1 source) Obstructive sleep apnea syndrome; Translations: [Obstructive sleep apnea (adult) (pediatric)] Onset: 7 05-29-2022 Chronic Spondylosis; intervertebral disc disorders; other back problems (1 source) Other spondylosis with radiculopathy, lumbar region; Translations: [OTH SPONDYLS RADICULOPATHY LUMB RGN] Onset: 2 Chronic Substance-related disorders (4 sources) Nicotine dependence, cigarettes, with unspecified nicotine-induced disorders; Translations: [NICOTINE DEPEND CIG W/UNS INDUC D/O] Onset: 2 Chronic Unclassified (1 source) CONTACT W/AND (SUSP) EXPOS COVID-19; Translations: [CONTACT W/AND (SUSP) EXPOS COVID-19] Onset: 2 Past or Other Problems Problem Classification Problem Date Documented Da te Episodic/Chronic Complication of device; implant or graft (16 sources) Joint pain; Translations: [Pain due to internal orthopedic prosthetic devices, implants and grafts, sequela] Onset: 03-10-2022 Episodic Diabetes mellitus without complication (4 sources) Impaired fasting glucose; Translations: [Impaired fasting glycemia] Onset: 07-04-2013 05-29-2022 Episodic Fluid and electrolyte disorders (13 sources) Hyponatremia; Translations: [Hypo-osmolality and hyponatremia] Onset: 05-14-2022 Episodic Fracture of lower limb (1 source) Closed fracture of upper end of tibia; Translations: [Unspecified fracture of upper end of right tibia, subsequent encounter for closed fracture with routine healing] Onset: 06-19-2022 06-19-2022 Episodic Immunizations and screening for infectious disease (1 source) Contact with and (suspected) exposure to other viral communicable diseases; Translations: [Contact with and (suspected) exposure to other viral communicable diseases Z20.828] Onset: 12-17-2020 Resolved: 12-17-2020 Episodic Mood disorders (1 source) Mood disorders Onset: 12-31-2022 12-31-2022 Nonmalignant breast conditions (1 source) Breast lump; Translations: [Unspecified lump in unspecified breast] Onset: 05-14-2022 05-29-2022 Episodic Other acquired deformities (1 source) Spondylolisthesis, lumbar region Onset: 10-24-2021 Resolved: 10-24-2021 Episodic Other aftercare (1 source) 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 superintendent 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; Translations: [OTH PENITENTIARY CURRENT DRUG THERAPY] Onset: 12-09-2021 Episodic Other aftercare (1 source) intermediate designer (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 anticoagulants; Translations: [SUPERINTENDENT GREENS CURRNT USE ANTICOAGULANTS] Onset: 11-25-2021 Episodic Other aftercare (11 sources) Patient encounter status; Translations: [intermediate designer (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 non-steroidal anti-inflammatories (NSAID)] Onset: 06-09-2022 Episodic Other and unspecified benign neoplasm (1 source) Polyp of colon; Translations: [Polyp of colon] Onset: 05-14-2022 05-29-2022 Episodic Other bone disease and musculoskeletal deformities (1 source) Osteopenia; Translations: [Other specified disorders of bone density and structure, unspecified site] Onset: 05-14-2022 05-29-2022 Episodic Other connective tissue disease (6 sources) Trochanteric bursitis, right hip; Translations: [TROCHANTERIC BURSITIS RIGHT HIP] Onset: 09-18-2021 Resolved: 10-24-2021 Episodic Other lower respiratory disease (1 source) Shortness of breath; Translations: [SHORTNESS OF BREATH] Onset: 11-25-2021 Episodic Other lower respiratory disease (1 source) Solitary nodule of lung; Translations: [Solitary pulmonary nodule] Onset: 12-31-2022 12-31-2022 Episodic Other non-traumatic joint disorders (5 sources) Pain in right knee; Translations: [PAIN IN RIGHT KNEE] Onset: 09-27-2021 Episodic Other upper respiratory disease (4 sources) Other specified disorders of nose and nasal sinuses; Translations: [OTH SPEC D/O NOSE NASAL SINUSES] Onset: 12-03-2021 Episodic Residual codes; unclassified (1 source) Edema, unspecified; Translations: [EDEMA UNSPECIFIED] Onset: 11-25-2021 Episodic Residual codes; unclassified (1 source) Edema; Translations: [Edema, unspecified] Onset: 05-14-2022 05-29-2022 Episodic Spondylosis; intervertebral disc disorders; other back problems (6 sources) Spinal stenosis, lumbar region without neurogenic claudication; Translations: [Radiculopathy, lumbar region] Onset: 08-26-2021 Resolved: 10-24-2021 Episodic Substance-related disorders (1 source) 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 ([id number]) [address], [address] [place] [address] HbA1c (Bld) [Mass fraction] 5.8 % High 4.4-5.6 [facility] Comment on above: Result Comment: NOTE ADA Guidelines Result HgbA1c Normal : less than 5.7 % Prediabetes : 5.7 % to 6.4 % Diabetes : > 6.4 % Use with caution in patients with abnormal hemoglobin variants as the half-life of red blood cells and in vivo glycation rates are affected. Performed By: #### 2 4331-1, 3016-3, SHYAM #### [facility] ([id number]) [address], [address] [place] [address] Lipid 1996 panelon 4 Cholesterol [Mass/Vol] 150 mg/dL Normal 150-200 [facility] Comment on above: Performed By: #### 2 4331-1, 3015-3, SHYAM #### [facility] ([id number]) [address], [address] [place] [address] Cholesterol in HDL [Mass/Vol] 45 mg/dL Normal >39 [facility] Comment on above: Result Comment: HDL <40 mg/dL - High Risk HDL > or = 40mg/dL- Desirable HDL >60 mg/dL - Negative Risk Performed By: #### 2 4331-1, 3015-3, RIVER1C #### [facility] ([id number]) [address], [address] [place] [address] Cholesterol in LDL [Mass/Vol] 68 mg/dL Normal <130 [facility] Comment on above: Result Comment: LDL <100 mg/dL - Desirable LDL >160 mg/dL - High Risk Performed By: #### 2 4331-1, 6-3, HA1C #### [facility] ([id number]) [address], [address] [place] [address] Cholesterol in VLDL [Mass/Vol] 37 mg/dL High 0-30 [facility] Comment on above: Performed By: #### 2 4331-1, 3016-3, HA1C #### [facility] ([id number]) [address], [address] [place] [address] CHOLESTEROL:HDL 3.3 Normal 1.0-5.0 [facility] Comment on above: Performed By: #### 2 4331-1, 3016-3, HA1C #### [facility] ([id number]) [address], [address] [place] [address] Triglyceride [Mass/Vol] 183 mg/dL High 27-150 [facility] Comment on above: Performed By: #### 2 4331-1, 3016-3, HA1C #### [facility] ([id number]) [address], [address] [place] [address] TSH Qnon 08-24-2023 TSH 1.10 uIU/mL Normal 0.49-4.67 [facility] Comment on above: Performed By: #### 2 4331-1, 3016-3, HA1C #### [facility] ([id number]) [address], [address] [place] [address] Office Visiton 12-15-2022 Follow-up visit [id number] Sd Rehman 1950 Date Provider Department Center 12/15/2022 RUPINDER RASHEED Family History Problem Relation Age of Onset Hypertension Mother Heart disease Mother Cancer Father Family Status - Relation Status Age at Mother Father Level of Service:64704 MO OFFICE/OUTPATIENT ESTABLISHED MOD MDM 30-39 MIN Normal [facility] Office Visiton 09-22-2022 Follow-up visit [id number] Sd Rehman 1950 Date Provider Department Center 09/22/2022 RUPINDER RASHEED Family History Problem Relation Age of Onset Hypertension Mother Heart disease Mother Cancer Father Family Status - Relation Status Age at Mother Father Level of Service:14153 MO OFFICE/OUTPATIENT ESTABLISHED LOW MDM 20-29 MIN Normal [facility] CBC, EDIF, PLATELETon 2022 ABSOLUTE BASOPHIL COUNT 0.0 10*3/uL 0.0 - 0.2 10*3/uL [facility] Basophils/100 WBC (Bld) 0.1 % 0.0 - 2.0 % [facility] Differential cell count method Nom (Bld) AUTO DIFF % [facility] Eosinophils (Bld) [#/Vol] 0.0 10*3/uL 0.0 - 0.7 10*3/uL [facility] Eosinophils/100 WBC (Bld) 0.0 % 0.0 - 11.0 % [facility] Erythrocyte distribution width (RBC) [Ratio] 14.7 % High 11.5 - 14.5 % [facility] Hematocrit (Bld) [Volume fraction] 29.0 % Low 36.0 - 48.0 % [facility] Hemoglobin (Bld) [Mass/Vol] 9.5 g/dL Low [facility] Interpretation and review of laboratory results Abnormal [facility] Lymphocytes (Bld) [#/Vol] 0.9 10*3/uL Low 1.2 - 3.4 10*3/uL [facility] Lymphocytes/100 WBC (Bld) 5.1 % Low 20.0 - 55.0 % [facility] MCH (RBC) [Entitic mass] 31.1 pg 26.0 - 35.0 PG [facility] MCHC (RBC) [Mass/Vol] 32.7 g/dL [facility] MCV (RBC) [Entitic vol] 95.0 fL [facility] Monocytes (Bld) [#/Vol] 1.3 10*3/uL High 0.0 - 0.7 10*3/uL [facility] Monocytes/100 WBC (Bld) 7.3 % 0.0 - 10.0 % [facility] Neutrophils (Bld) [#/Vol] 15.5 10*3/uL High 1.4 - 6.5 10*3/uL [facility] Neutrophils/100 WBC (Bld) 87.5 % High 37.0 - 75.0 % [facility] Platelet mean volume (Bld) [Entitic vol] 8.1 fL [facility] Platelets (Bld) [#/Vol] 330 10*3/uL 130.0 - 400.0 10*3/uL [facility] RBC (Bld) [#/Vol] 3.05 10*6/uL Low 4.0 - 5.4 10*6/uL [facility] WBC (Bld) [#/Vol] 17.7 10*3/uL High 3.6 - 11.0 10*3/uL [facility] RENAL FUNCTION PANELon 06-11 Albumin [Mass/Vol] 3.1 G/dl Low 3.5 - 5.0 G/dl [facility] Calcium [Mass/Vol] 8.6 mg/dL [facility] Chloride [Moles/Vol] 99 mmol/L [facility] CO2 [Moles/Vol] 21 mmol/L Low [facility] Creatinine [Mass/Vol] 1.48 mg/dL High [facility] GFR COMMENT Average GFR for 70+ years old = 75. [facility] Comment on above: Chronic Kidney disea se, GFR = <60. Kidney failure, GFR = <15. The GFR estimate is not adjusted for extreme body surface area or acute process, nor has it been validated for women or ethnic groups other than and . GFR/1.73 sq M.predicted among blacks MDRD (S/P/Bld) [Vol rate/Area] 45 mL/min/{1.73_m2} ml/min/1.73sq .m [facility] GFR/1.73 sq M.predicted among non-blacks MDRD (S/P/Bld) [Vol rate/Area] 37 mL/min/{1.73_m2} ml/min/1.73sq .m [facility] Glucose post fast [Mass/Vol] 137 mg/dL High [facility] Comment on above: NORMAL <100 mg/dL PREDIABETES 101-126 mg/dL DIABETES 126 mg/dL or higher Interpretation and review of laboratory results Abnormal [facility] Phosphate [Mass/Vol] 3.2 mg/dL [facility] Potassium [Moles/Vol] 4.2 mmol/L [facility] Sodium [Moles/Vol] 132 mmol/L Low [facility] Urea nitrogen [Mass/Vol] 36 mg/dL High [facility] CBC, EDIF, PLATELETon 2022 ABSOLUTE BASOPHIL COUNT 0.0 10*3/uL 0.0 - 0.2 10*3/uL [facility] Basophils/100 WBC (Bld) 0.1 % 0.0 - 2.0 % [facility] Differential cell count method Nom (Bld) AUTO DIFF % [facility] Eosinophils (Bld) [#/Vol] 0.0 10*3/uL 0.0 - 0.7 10*3/uL [facility] Eosinophils/100 WBC (Bld) 0.0 % 0.0 - 11.0 % [facility] Erythrocyte distribution width (RBC) [Ratio] 14.7 % High 11.5 - 14.5 % [facility] Hematocrit (Bld) [Volume fraction] 32.2 % Low 36.0 - 48.0 % [facility] Hemoglobin (Bld) [Mass/Vol] 10.5 g/dL Low [facility] Interpretation and review of laboratory results Abnormal [facility] Lymphocytes (Bld) [#/Vol] 0.8 10*3/uL Low 1.2 - 3.4 10*3/uL [facility] Lymphocytes/100 WBC (Bld) 4.8 % Low 20.0 - 55.0 % [facility] MCH (RBC) [Entitic mass] 31.3 pg 26.0 - 35.0 PG [facility] MCHC (RBC) [Mass/Vol] 32.7 g/dL [facility] MCV (RBC) [Entitic vol] 95.6 fL [facility] Monocytes (Bld) [#/Vol] 0.5 10*3/uL 0.0 - 0.7 10*3/uL [facility] Monocytes/100 WBC (Bld) 2.8 % 0.0 - 10.0 % [facility] Neutrophils (Bld) [#/Vol] 14.8 10*3/uL High 1.4 - 6.5 10*3/uL [facility] Neutrophils/100 WBC (Bld) 92.3 % High 37.0 - 75.0 % [facility] Platelet mean volume (Bld) [Entitic vol] 7.7 fL [facility] Platelets (Bld) [#/Vol] 352 10*3/uL 130.0 - 400.0 10*3/uL [facility] RBC (Bld) [#/Vol] 3.37 10*6/uL Low 4.0 - 5.4 10*6/uL [facility] WBC (Bld) [#/Vol] 16.1 10*3/uL High 3.6 - 11.0 10*3/uL [facility] NOVEL CORONAVIRUS LAB 1 - NA SOPHARYNGEALon 06-10-2022 NARRATIVE -1 This test was performed using isothermal GABRIELA and has been approved as Emergency Use Authorization (EUA) for the qualitative detection [id number]-6 nucleic acid. [facility] SARS-CoV-2 (COVID-19) RNA GABRIELA+probe Ql (Unsp spec) Not detected NOT DETECTED [facility] Comment on above: Negative results do not preclude SARS-CoV-2 infection and should not be used as the sole basis for treatment or other patient management decisions. Optimum specimen types and timing for peak viral levels during infections caused by SARS-CoV-2 has not been determined. The possibility of a false negative result should especially be considered if the patient's recent exposures or clinical presentation suggest that SARS-CoV-2 infection is probable, and diagnostic tests for other causes of illness (e.g., other respiratory illness) are negative. Collection of a new specimen and re-testing may be necessary if the patient is critically ill or clinically deteriorating. [facility] RENAL FUNCTION PANELon 06-10 Albumin [Mass/Vol] 3.3 G/dl Low 3.5 - 5.0 G/dl [facility] Calcium [Mass/Vol] 8.9 mg/dL [facility] Chloride [Moles/Vol] 102 mmol/L [facility] CO2 [Moles/Vol] 21 mmol/L Low [facility] Creatinine [Mass/Vol] 1.40 mg/dL High [facility] GFR COMMENT Average GFR for 70+ years old = 75. [facility] Comment on above: Chronic Kidney disea se, GFR = <60. Kidney failure, GFR = <15. The GFR estimate is not adjusted for extreme body surface area or acute process, nor has it been validated for women or ethnic groups other than and . GFR/1.73 sq M.predicted among blacks MDRD (S/P/Bld) [Vol rate/Area] 48 mL/min/{1.73_m2} ml/min/1.73sq .m [facility] GFR/1.73 sq M.predicted among non-blacks MDRD (S/P/Bld) [Vol rate/Area] 40 mL/min/{1.73_m2} ml/min/1.73sq .m [facility] Glucose post fast [Mass/Vol] 158 mg/dL High [facility] Comment on above: NORMAL <100 mg/dL PREDIABETES 101-126 mg/dL DIABETES 126 mg/dL or higher Interpretation and review of laboratory results Abnormal [facility] Phosphate [Mass/Vol] 3.8 mg/dL [facility] Potassium [Moles/Vol] 4.6 mmol/L [facility] Sodium [Moles/Vol] 133 mmol/L Low [facility] Urea nitrogen [Mass/Vol] 30 mg/dL High [facility] REPEAT ABO/RH (D) TYPINGon 0 06-09-2022 ABO and Rh group Nom (Bld ) Positive [facility] SCREEN: MRSA ONLY, NARES (IS OLATION SCREEN)on 06-09-2022 MRSA isol Org specific cx Ql (Nose) Not detected NOT DETECTED [facility] STAPHYOCOCCUS AUREUS BY PCR Not detected NOT DETECTED [facility] XR Knee - right 2 Viewson FINDINGS/IMPRESSION: Status post total knee arthroplasty without evidence of complication. Expected perioperative soft tissue changes. RADIOLOGY EXAM: XR KNEE RIGHT 2 VIEWS INDICATION: s/p TKA COMPARISON: 02/19/2022 TECHNIQUE: Radiographs as described above RADIOLOGY Teresa Clemens MD - 06/09/2022 EXAM: XR KNEE RIGHT 2 VIEWS INDICATION: s/p TKA COMPARISON: 02/19/2022 TECHNIQUE: Radiographs as described above IMPRESSION FINDINGS/IMPRESSION: Status post total knee arthroplasty without evidence of complication. Expected perioperative soft tissue changes. [facility] Radiology Study observation (narrative) [facility] XR Knee - right 2 ViewsOrder ed By: Teresa Clemens on 06-09-2022 [employer] Work Phone: ECHOCARDIO M/2D COMPLETEon 0 05-29-2022 ECHOCARDIO M/2D COMPLETE Patient: SD REHMAN Exam Date: 05/29/2022 : 1950 Gender:F Ordering : MRS. JEANIE STANLEY [employer] Admission #: [id number] Family : Order #: [id number] CLICK HERE TO VIEW EXAM ECHOCARDIOGRAM REPORT PROCEDURE: CARDIO PULMONARY ECHOCARDIO M/2D COMP INDICATIONS: CHARLES COMPARISON: None. DESCRIPTION: COMPLETE ECHOCARDIOGRAM Real-time transthoracic echocardiography with 2D, M-mode, spectral and color flow Doppler performed. QUALITY: Technical quality was good. LEFT VENTRICLE: Normal chamber size. Borderline left ventricular hypertrophy. Global left ventricular systolic function is normal. LV EF: Calculated left ventricular ejection fraction is 57% DIASTOLIC: Grade I diastolic dysfunction. ATRIAL SEPTUM: LEFT ATRIUM: Mild dilatation. RIGHT ATRIUM: Mild dilatation. RIGHT VENTRICLE: Normal chamber size. Normal right ventricular systolic function. TRICUSPID VALVE: Normal mobility and thickness. No stenosis with trivial regurgitation. No evidence of pulmonary hypertension. RVSP 33 mmHg MITRAL VALVE: Normal mobility and thickness. No mitral valve prolapse. No evidence of mitral valve stenosis. Moderate mitral annular calcification. Trivial mitral regurgitation. AORTIC VALVE: Normal trileaflet appearance. Mildly calcified aortic valve. Normal leaflet mobility. No evidence of aortic valve stenosis. No aortic regurgitation. AORTIC ROOT: Normal diameter and appearance. PULMONIC VALVE: Normal thickness and mobility. No stenosis. Trivial regurgitation. PERICARDIUM: No evidence of pericardial effusion. IVC: Collapses with inspirations. Normal size. PLEURA: CONCLUSION: 1. Normal ventricular systolic function. LVEF is 55 to 60%. 2. Mild diastolic dysfunction. 3. Mild biatrial dilatation. 4. No significant valvular dysfunction. 5. Normal right-sided pressures. 6. No pericardial effusion. Adult Echocardiography Procedure Report Left Ventricle LVEDD (3.7 - 5.6 cm): 3.84 cm LVESD (2.2 - 4.0 cm): 2.72 cm LVIVS thickness (0.6 - 1.2 cm): 1.23 cm LVPW thickness (0.5 - 1.0 cm): 0.73 cm e': 0.07 m/s E - e': 13.95 LVOT Max Gradient: 5.89 mm[Hg] Peak Velocity (LVOT): 1.21 m/s Mean Velocity (LVOT): 0.75 m/s LVOT Diameter 1.98 cm Left Ventricular Ejection Fraction: 55-60 % Left Atrium LA Volume Index (2D A2C): 74.51 ml, 74.51 ml Left Atrium Systolic Dimension: 4.35 cm Mitral Valve MV E to A Ratio: 0.67 Mitral Valve A-Wave Peak Velocity: 1.48 m/s Mitral Valve E-Wave Peak Velocity: 0.99 m/s Right Ventricle RV Internal Diastolic Dimension: 3.23 cm Aorta AO Root Diam: 2.88 cm Ascending Ao Diam: 2.78 cm Aortic Valve AoV Area (Peak Mode): 2.42 cm2, 2.42 cm2 AoV Area (VTI): 2.41 cm2, 2.41 cm2 Peak Velocity(Antegrade Flow): 1.54 m/s Peak Gradient(Antegrade Flow): 9.47 mm[Hg] Mean Velocity(Antegrade Flow): 0.95 m/s Mean Gradient(Antegrade Flow): 4.35 mm[Hg] Velocity Time Integral: 33.62 cm Tricuspid Valve Peak Velocity (Regurgitant Flow): 2.47 m/s, 2.77 m/s, 2.69 m/s Peak Velocity: 0.39 m/s Pulmonic Valve Peak Velocity: 0.93 m/s, 1.05 m/s Peak Gradient: 3.44 mm[Hg], 4.38 mm[Hg] Right Atrium Right Atrium Systolic Pressure: 35.79 ml, 35.79 ml Dictated by: Jose Pereyra M.D. on 05/29/2022 at 17:08 Approved by: Jose Pereyra M.D. on 05/29/2022 at 17:11 Normal [facility] PTH INTACTon 05-29-2022 PTH, Intact 50 pg/mL Normal 15-65 [facility] Comment on above: Performed By: #### M G, RENAL, URIC #### [facility] [address] [place] [address] Dr. Demetra Costa HEMOGRAM AND PLATELon 2022 Hematocrit (Bld) [Volume fraction] 34.9 % Critically low 36.0-48.0 [facility] Comment on above: Performed By: #### H H #### [facility] [address] [place] [address] Dr. Demetra Costa Hemoglobin (Bld) [Mass/Vol] 11.2 g/dL Critically low 12.0-16.0 [facility] Comment on above: Performed By: #### H H #### [facility] [address] [place] [address] Dr. Demetra Costa MCH (RBC) [Entitic mass] 30.9 pg Normal 26.7-34.0 [facility] Comment on above: Performed By: #### H H #### [facility] [address] [place] [address] Dr. Demetra Costa MCHC (RBC) [Mass/Vol] 32.1 g/dL Normal 29.9-35.2 [facility] Comment on above: Performed By: #### H H #### [facility] [address] [place] [address] Dr. Demetra Costa MCV (RBC) [Entitic vol] 96.4 fL Normal 81.0-99.0 [facility] Comment on above: Performed By: #### H H #### [facility] [address] [place] [address] Dr. Demetra Costa PLT 341 103/ul Normal 150-450 [facility] Comment on above: Performed By: #### H H #### [facility] [address] [place] [address] Dr. Demetra Costa RBC 3.62 106/ul Critically low 4.20-5.40 [facility] Comment on above: Performed By: #### H H #### [facility] [address] [place] [address] Dr. Demetra Costa WBC 9.8 103/ul Normal 4.0-11.0 [facility] Comment on above: Performed By: #### H H #### [facility] [address] [place] [address] Dr. Demetra Costa MAGNESIUMon 05-28-2022 Magnesium [Mass/Vol] 1.9 mg/dL Normal 1.8-2.4 [facility] Comment on above: Performed By: #### M G, RENAL, URIC #### [facility] [address] [address] [address] Demetra Costa RENAL FUNCTION PANELon 05-28 Albumin [Mass/Vol] 3.2 g/dL Critically low 3.4-5.0 [facility] Comment on above: Performed By: #### M G, RENAL, URIC #### [facility] [address] [address] [address] Demetra Costa Calcium [Mass/Vol] 9.4 mg/dL Normal 8.5-10.1 [facility] Comment on above: Performed By: #### M G, RENAL, URIC #### [facility] [address] [address] [address] Demetra Costa Chloride [Moles/Vol] 103 mmol/L Normal 98-107 [facility] Comment on above: Performed By: #### M G, RENAL, URIC #### [facility] [address] [address] [address] Demetra Costa CO2 [Moles/Vol] 25.4 mmol/L Normal 21.0-32.0 [facility] Comment on above: Performed By: #### M G, RENAL, URIC #### [facility] [address] [address] [address] Demetra Costa Creatinine [Mass/Vol] 1.52 mg/dL Critically high 0.55-1.02 [facility] Comment on above: Performed By: #### M G, RENAL, URIC #### [facility] [address] [address] [address] Demetra Costa EGFR-AF MONEGASQUE 41 mL/min/1.73m2 Critically low >=60 [facility] Comment on above: Performed By: #### M G, RENAL, URIC #### [facility] [address] [address] [address] Demetra Costa EGFR-NON AF MONEGASQUE 34 mL/min/1.73m2 Critically low >=60 [facility] Comment on above: Performed By: #### M G, RENAL, URIC #### [facility] [address] [address] [address] Demetra Costa Glucose [Mass/Vol] 115 mg/dL Critically high 74-106 [facility] Comment on above: Performed By: #### M G, RENAL, URIC #### [facility] [address] [address] [address] Demetra Costa Phosphate [Mass/Vol] 3.5 mg/dL Normal 2.6-4.7 [facility] Comment on above: Performed By: #### M G, RENAL, URIC #### [facility] [address] [place] [address] Dr. Demetra Costa Potassium [Moles/Vol] 4.7 mmol/L Normal 3.5-5.1 [facility] Comment on above: Performed By: #### M G, RENAL, URIC #### [facility] [address] [place] [address] Dr. Demetra Costa Sodium [Moles/Vol] 137 mmol/L Normal 136-145 [facility] Comment on above: Performed By: #### M G, RENAL, URIC #### [facility] [address] [place] [address] Dr. Demetra Costa Urea nitrogen [Mass/Vol] 29.0 mg/dL Critically high 7.0-18.0 [facility] Comment on above: Performed By: #### M G, RENAL, URIC #### [facility] [address] [place] [address] Dr. Demetra Costa URIC ACID SERUMon 05-28-2022 Urate [Mass/Vol] 5.1 mg/dL Normal 2.6-6.0 [facility] Comment on above: Performed By: #### M G, RENAL, URIC #### [facility] [address] [place] [address] Dr. Demetra Costa VITAMIN D 25 OHon 05-28-2022 VIT D 25-OH 29.1 ng/mL Normal [facility] Comment on above: Performed By: #### U PARESH, CMP #### [facility] [address] [place], [place] [address] Dr. Demetra Costa VIT D RANGES SEE BELOW Normal [facility] Comment on above: Result Comment: <20 ng/mL Vit D deficient 20 - <30 ng/mL Vit D insufficient 30 - 100 ng/mL Vit D sufficient >100 ng/mL Potential Toxicity Performed By: #### U PARESH, CMP #### [facility] [id number] Demetra Lomeli 05-05-2022 CNPN Telephone ([place]) SD REHMAN ([id number]) 1950 F Date Time Provider Department 05/05/22 ALEXANDRA QUICK During your visit today, we recorded the following information about you: Alexandra Quick RN 05/05/2022 8:44 AM Signed ----- Message from Dennis Lomas MD sent at 05/04/2022 3:33 PM EST ----- She needs to start on folic acid 1000 mcg po daily - over the counter. Alexandra Quick RN 05/05/2022 9:25 AM Signed Informed pt of Dr Mahoney's message. Pt verbalized understanding and denies further needs at this time. Alexandra Quick RN Allergies As of Date: 05/05/2022 (No Known Allergies) Date Reviewed: 05/02/2022 Reviewed by: Janine Saravia - Fully Assessed Reason for Visit: Results [95] Prescriptions as of 05/05/2022 - rosuvastatin (CRESTOR) 20 mg tablet Take 20 mg by mouth once daily. - spironolactone (ALDACTONE) 25 mg tablet Take 25 mg by mouth once daily. - acetaminophen 325 mg cap Take 500 capsules by mouth every 4 hours as needed. - albuterol HFA (PROVENTIL HFA, VENTOLIN HFA) 90 mcg/actuation inhaler albuterol sulfate HFA 90 mcg/actuation aerosol inhaler INHALE 2 PUFFS EVERY 4 HOURS NEEDED FOR SHORTNESS OF BREATH - allopurinol (ZYLOPRIM) 300 mg tablet allopurinol 300 mg tablet TAKE 1 TABLET BY MOUTH EVERY DAY - Cholecalciferol, Vitamin D3, 25 mcg (1,000 unit) cap Take 1,000 Units by mouth. - cloNIDine HCl (CATAPRES) 0.1 mg tablet clonidine HCl 0.1 mg tablet - colchicine 0.6 mg tablet colchicine 0.6 mg tablet TAKE 1 TABLET BY MOUTH EVERY DAY NEEDED FOR FLARE - dilTIAZem (CARDIZEM) 120 mg tablet Take 120 mg by mouth. - DULoxetine (CYMBALTA) 60 mg capsule Take 60 mg by mouth. - fluticasone-umeclidin- vilanter (TRELEGY ELLIPTA) 100-62.5-25 mcg inhalation powder 1 puff - furosemide (LASIX) 20 mg tablet TAKE 1 TABLET BY MOUTH EVERY DAY FOR 90 DAYS - heparin 10 unit/mL injection Inject 5 mL intravenously. - loratadine (CLARITIN) 10 mg tablet Take 10 mg by mouth. - lovastatin 40 mg tablet Take 40 mg by mouth. - meloxicam (MOBIC) 15 mg tablet Take 15 mg by mouth. - metoprolol succinate ER (TOPROL XL) 100 mg Take 100 mg by mouth. - rivaroxaban (XARELTO) 20 mg tablet Xarelto 20 mg tablet TAKE 1 TABLET BY MOUTH EVERY DAY - varenicline (CHANTIX) 1 mg tablet Take 1 mg by mouth. Problem List As Of Date: 05/05/2022 (None) Encounter Status:Closed by ALEXANDRA QUICK on 05/05/22 Normal [facility] CBC W Auto Differential pane l (Bld)on 05-02-2022 Basophils (Bld) [#/Vol] 0.12 10*3/uL High <0.11 [facility] Comment on above: Order Comment: Speci men Type: BLOOD SPECIMEN Ordering Facility: [facility] Address: [address] [place] [address] Performed By: #### 5 7021-8 #### [facility] CLIA [id number] [address] [place] [address] Basophils/100 WBC (Bld) 0.9 % Normal [facility] Comment on above: Order Comment: Speci men Type: BLOOD SPECIMEN Ordering Facility: [facility] Address: [address] [address] Performed By: #### 5 7021-8 #### [facility] CLIA [id number] [address] [place] [address] Differential cell count method Nom (Bld) Auto Normal [facility] Comment on above: Order Comment: Speci men Type: BLOOD SPECIMEN Ordering Facility: [facility] Address: [address] [address] Performed By: #### 5 7021-8 #### [facility] CLIA [id number] [address] [place] [address] Eosinophils (Bld) [#/Vol] 0.27 10*3/uL Normal <0.46 [facility] Comment on above: Order Comment: Speci men Type: BLOOD SPECIMEN Ordering Facility: [facility] Address: [address] [address] Performed By: #### 5 7021-8 #### [facility] CLIA [id number] [address] [place] [address] Eosinophils/100 WBC (Bld) 2.0 % Normal [facility] Comment on above: Order Comment: Speci men Type: BLOOD SPECIMEN Ordering Facility: [facility] Address: [address] [address] Performed By: #### 5 7021-8 #### [facility] CLIA [id number] [address] [place] [address] Erythrocyte distribution width (RBC) [Ratio] 13.2 % Normal 11.5-15.0 [facility] Comment on above: Order Comment: Speci men Type: BLOOD SPECIMEN Ordering Facility: [facility] Address: [address] [address] Performed By: #### 5 7021-8 #### [facility] CLIA [id number] [address] [place] [address] Hematocrit (Bld) [Volume fraction] 38.6 % Normal 36.0-46.0 [facility] Comment on above: Order Comment: Speci men Type: BLOOD SPECIMEN Ordering Facility: [facility] Address: [address] [place] [address] Performed By: #### 5 7021-8 #### [facility] CLIA [id number] [address] [place] [address] Hemoglobin (Bld) [Mass/Vol] 12.4 g/dL Normal 11.5-15.5 [facility] Comment on above: Order Comment: Speci men Type: BLOOD SPECIMEN Ordering Facility: [facility] Address: [address] [place] [address] Performed By: #### 5 7021-8 #### [facility] CLIA [id number] [address] [place] [address] Immature granulocytes (Bld) [#/Vol] 0.09 10*3/uL Normal <0.10 [facility] Comment on above: Order Comment: Speci men Type: BLOOD SPECIMEN Ordering Facility: [facility] Address: [address] [place] [address] Performed By: #### 5 7021-8 #### [facility] CLIA [id number] [address] [place] [address] 77[address] Immature granulocytes/100 WBC (Bld) 0.7 % Normal [facility] Comment on above: Order Comment: Speci men Type: BLOOD SPECIMEN Ordering Facility: [facility] Address: [address] [place] [address] Performed By: #### 5 7021-8 #### [facility] CLIA [id number] [address] [place] [address] Lymphocytes (Bld) [#/Vol] 2.78 10*3/uL Normal 1.00-4.00 [facility] Comment on above: Order Comment: Speci men Type: BLOOD SPECIMEN Ordering Facility: [facility] Address: [address] [address] Performed By: #### 5 7021-8 #### [facility] CLIA [id number] [address] [place] [address] 6[address] Lymphocytes/100 WBC (Bld) 20.1 % Normal [facility] Comment on above: Order Comment: Speci men Type: BLOOD SPECIMEN Ordering Facility: [facility] Address: [address] [address] Performed By: #### 5 7021-8 #### [facility] CLIA [id number] [address] [place] [address]99 MCH (RBC) [Entitic mass] 31.3 pg Normal 26.0-34.0 [facility] Comment on above: Order Comment: Speci men Type: BLOOD SPECIMEN Ordering Facility: [facility] Address: [address] [address] Performed By: #### 5 7021-8 #### [facility] CLIA [id number] [address] [place] [address] MCHC (RBC) [Mass/Vol] 32.1 g/dL Normal 30.5-36.0 [facility] Comment on above: Order Comment: Speci men Type: BLOOD SPECIMEN Ordering Facility: [facility] Address: [address] [address] Performed By: #### 5 7021-8 #### [facility] CLIA [id number] [address] [place] [address]78 MCV (RBC) [Entitic vol] 97.5 fL Normal 80.0-100.0 [facility] Comment on above: Order Comment: Speci men Type: BLOOD SPECIMEN Ordering Facility: [facility] Address: [address] [address] Performed By: #### 5 7021-8 #### [facility] CLIA [id number] [address] [place] [address] Monocytes (Bld) [#/Vol] 1.13 10*3/uL High <0.87 [facility] Comment on above: Order Comment: Speci men Type: BLOOD SPECIMEN Ordering Facility: [facility] Address: [address] [address] Performed By: #### 5 7021-8 #### [facility] CLIA [id number] [address] [place] [address] 82045 Monocytes/100 WBC (Bld) 8.2 % Normal [facility] Comment on above: Order Comment: Speci men Type: BLOOD SPECIMEN Ordering Facility: [facility] Address: [address] Performed By: #### 5 7021-8 #### [facility] CLIA [id number] [address] [place] [address] 88303 Neutrophils (Bld) [#/Vol] 9.43 10*3/uL High 1.45-7.50 [facility] Comment on above: Order Comment: Speci men Type: BLOOD SPECIMEN Ordering Facility: [facility] Address: [address] Performed By: #### 5 7021-8 #### [facility] CLIA [id number] [address] [place] [address] 87506 Neutrophils/100 WBC (Bld) 68.1 % Normal [facility] Comment on above: Order Comment: Speci men Type: BLOOD SPECIMEN Ordering Facility: [facility] Address: [address] Performed By: #### 5 7021-8 #### [facility] CLIA [id number] [address] [place] [address] 98773 Nucleated RBC (Bld) [#/Vol] 10*3/uL Normal <0.01 [facility] Comment on above: Order Comment: Speci men Type: BLOOD SPECIMEN Ordering Facility: [facility] Address: [address] Performed By: #### 5 7021-8 #### [facility] CLIA [id number] [address] [place] [address] Nucleated RBC/100 WBC (Bld) [Ratio] 0.0 /100 WBC Normal [facility] Comment on above: Order Comment: Speci men Type: BLOOD SPECIMEN Ordering Facility: [facility] Address: [address] [place] [address] Performed By: #### 5 7021-8 #### [facility] CLIA [id number] [address] [place] [address] 15555 Platelet mean volume (Bld) [Entitic vol] 8.6 fL Low 9.0-12.7 [facility] Comment on above: Order Comment: Speci men Type: BLOOD SPECIMEN Ordering Facility: [facility] Address: [address] [place] [address] Performed By: #### 5 7021-8 #### [facility] CLIA [id number] [address] [place] [address] 99079 Platelets (Bld) [#/Vol] 416 10*3/uL High 150-400 [facility] Comment on above: Order Comment: Speci men Type: BLOOD SPECIMEN Ordering Facility: [facility] Address: [address] [place] [address] Performed By: #### 5 7021-8 #### [facility] CLIA [id number] [address] [place] [address] 88127 RBC (Bld) [#/Vol] 3.96 10*6/uL Normal 3.90-5.20 [facility] Comment on above: Order Comment: Speci men Type: BLOOD SPECIMEN Ordering Facility: [facility] Address: [address] [place] [address] Performed By: #### 5 7021-8 #### [facility] CLIA [id number] [address] [place] [address] 49240 WBC (Bld) [#/Vol] 13.82 10*3/uL High 3.70-11.00 [facility] Comment on above: Order Comment: Speci men Type: BLOOD SPECIMEN Ordering Facility: [facility] Address: [address], [place] [address] Performed By: #### 5 7021-8 #### [facility] CLIA [id number] [address] [place] [address]407 CNOVSPon 05-02-2022 CNOVSP Visit (SP) Office ([place]) SD REHMAN ([id number]) 1950 F Date Time Provider Department 05/02/22 2:30 PM DENNIS LOMAS During your visit today, we recorded the following information about you: Temperature Pulse Respiration Blood pressure 97.2 degrees 94/minute 16/minute 149/74 Weight Height 101.4 kg 1.575 m Dennis Lomas MD 05/10/2022 10:42 AM Signed NAME: Sd Rehman CLINIC NO.: [id number] DATE OF SERVICE: May 02, 2022 ([place]) Some elements in this clinic note that are critical to medical decision making have been carefully reviewed and included from a prior clinic note dated: February 28, 2022 ([place]ician[place]) Referring Provider: Odell Jones Additional Clinicians involved in Sd Rehman's care: Olivia Devries DIAGNOSIS: leukocytosis ASSESSMENT: 71 year old with chronic leukocytosis and multiple pro inflammatory causes. This appears to be primarily related to her inflamed right knee implant is causing significant mount of pain. She additionally has recently quit smoking but more likely has chronic inflammation related to this again causing a chronic leukocytosis that is mostly neutrophilic in nature. This process is unlikely to be a primary issue and is most likely secondary. However, it warranted monitoring and I saw in April with repeat laboratories that remain consistent with inflammatory process. I will see her after her planned surgery and pursue workup if indicated. Clear from my perspective to proceed with knee repair. PLAN: Proceed with knee replacement / repair as scheduled. RTC in 1st week of july 2022 Repeat labs - HPI: CASE HISTORY: Reverse Chronological Order 02/17/2022 CBC: 13.6 > 14.0/41.8 < 397, MCV 100.5 11/21/2021 CBC: 13.4 > 12.1/35.9 < 254 absolute neutrophils 10,000, absolute lymphocytes 2000. MCV 102.3 RDW 16.3. 09/27/2021 protein electrophoresis with immunofixation negative for M spike normal kappa lambda ratio. 09/19/2021 CBC 10.3 > 13.4/40.6 < 268, absolute neutrophils 7000, absolute lymphocytes 2300, MCV 101 Updated Visit, May 02, 2022: Here with daughter Muna - WBC still elevated but stable. Markers of inflammation rechecked and are pending today. I still believe this is related to her knee inflammation and not an underlying myeloproliferative disorder. Initial Visit, February 28, 2022: Sd Rehman presents today Hematology and Oncology evaluation. She is a 71 year old female who Is accompanied by her daughter Jacy for evaluation of leukocytosis. She has a prior history of chronic kidney disease stage IIIb, in addition to lumbar radiculopathy as well as bilateral knee replacements that are in need of revision. She also has a history of atrial fibrillation, COPD, gout, hypertension. Additionally she is a smoker 50 pack years and quit smoking approximately 3 weeks ago. Pertinent laboratories noted above in Case History. Sd has a significant amount of pain in her right knee in particular. She really needs her knee revised and she tells me that the implant is currently loose at the point of insertion causing a significant degree of pain and inflammation. She has had an arthrocentesis done and fluid was positive with white blood cells per her report. Given her history, she has multiple pro inflammatory factors that are likely contributing to her chronic leukocytosis. - REVIEW OF SYSTEMS Per HPI and otherwise negative by full review of organ systems. - ECOG PERFORMANCE STATUS: 1 PHYSICAL EXAMINATION: Vitals: BP 149/74 Pulse 94 Temp (Src) 97.2 (Temporal) Resp 16 Ht 5' 2.008 (1.58m) Wt 223 lb 9.6 oz (101.4kg) SpO2 97% BMI 40.89 kg/(m2). Body surface area is 2.11 meters squared. Exam limited to gross visualization where appropriate due to COVID-19. Gen.: This is an age-appropriate patient in no acute distress while seated, however, she has significant amount of difficulty standing and ambulating even with an assist device. Both legs are swollen chronically. Head: Appears atraumatic with no visible lesions. Eyes: Pupils equally round and reactive to light, extraocular muscles are intact. Neck: Supple. Mouth: Masked. Respiratory: Appears to be respiring comfortably. Neurologic: Nonfocal to gross visualization. Alert and oriented ?3. Psychiatric: No evidence of inappropriate anxiety or depression. Skin: Visible areas of skin without rash, lesions, wounds or petechiae. - ALLERGIES: ALLERGIES No Known A (more content not included)... Normal [facility] CRP SerPl-mCncon 05-02-2022 CRP [Mass/Vol] 1.9 mg/dL High <0.9 [facility] Comment on above: Order Comment: Speci men Type: BLOOD SPECIMEN Ordering Facility: [facility] Address: [address] [place] [address] Performed By: #### 5 0190-8, 1987-, 2275-06 #### [facility] CLIA [id number] [address] [facility] DESK [id number] OF [facility] Comprehensive metabolic 2000 panelon 05-02-2022 Albumin [Mass/Vol] 4.0 g/dL Normal 3.9-4.9 [facility] Comment on above: Order Comment: Speci men Type: BLOOD SPECIMEN Ordering Facility: [facility] Address: [address] [place] [address] Performed By: #### 2 532-0, 71423-5 #### [facility] CLIA [id number] [address] [place] [address] ALP [Catalytic activity/Vol] 117 U/L Normal 34-123 [facility] Comment on above: Order Comment: Speci men Type: BLOOD SPECIMEN Ordering Facility: [facility] Address: [address] [place] [address] Performed By: #### 2 532-0, 24568-8 #### [facility] CLIA [id number] [address] [place] [address]309 ALT [Catalytic activity/Vol] 9 U/L Normal 7-38 [facility] Comment on above: Order Comment: Speci men Type: BLOOD SPECIMEN Ordering Facility: [facility] Address: [address] [place], [place] [address] Performed By: #### 2 532-0, 25862-0 #### [facility] CLIA [id number] [address] [place] [address] Anion gap [Moles/Vol] 12 mmol/L Normal 9-18 [facility] Comment on above: Order Comment: Speci men Type: BLOOD SPECIMEN Ordering Facility: [facility] Address: [address] Performed By: #### 2 532-0, #### [facility] CLIA [id number] [address] [place] [address]136 AST [Catalytic activity/Vol] 12 U/L Low 13-35 [facility] Comment on above: Order Comment: Speci men Type: BLOOD SPECIMEN Ordering Facility: [facility] Address: [address] [address] Performed By: #### 2 532-0, #### [facility] CLIA [id number] [address] [place] [address] Bilirubin [Mass/Vol] 0.3 mg/dL Normal 0.2-1.3 [facility] Comment on above: Order Comment: Speci men Type: BLOOD SPECIMEN Ordering Facility: [facility] Address: [address] [address] Performed By: #### 2 532-0, #### [facility] CLIA [id number] [address] [place] [address] Calcium [Mass/Vol] 10.1 mg/dL Normal 8.5-10.2 [facility] Comment on above: Order Comment: Speci men Type: BLOOD SPECIMEN Ordering Facility: [facility] Address: [address] Performed By: #### 2 532-0, #### [facility] CLIA [id number] [address] [place] [address] Chloride [Moles/Vol] 104 mmol/L Normal 97-105 [facility] Comment on above: Order Comment: Speci men Type: BLOOD SPECIMEN Ordering Facility: [facility] Address: [address] [address] Performed By: #### 2 532-0, #### [facility] CLIA [id number] [address] [place] [address] CO2 [Moles/Vol] 25 mmol/L Normal 22-30 [facility] Comment on above: Order Comment: Speci men Type: BLOOD SPECIMEN Ordering Facility: [facility] Address: [address] [place] [address] Performed By: #### 2 532-0, 17659-1 #### [facility] CLIA [id number] [address] [place] [address] Creatinine [Mass/Vol] 1.78 mg/dL High 0.58-0.96 [facility] Comment on above: Order Comment: Speci men Type: BLOOD SPECIMEN Ordering Facility: [facility] Address: [address] [place] [address] Performed By: #### 2 532-0, 79663-7 #### [facility] CLIA [id number] [address] [place] [address] ESTIMATED GLOMERULAR FILTRATION RATE 30 mL/min/1.73m??? Low >=60 [facility] Comment on above: Order Comment: Speci men Type: BLOOD SPECIMEN Ordering Facility: [facility] Address: [address] [place] [address] Result Comment: Linda mated Glomerular Filtration Rate (eGFR) is calculated using the 2020 CKD-EPI creatinine equation. This equation utilizes serum creatinine, sex, and age as parameters. The creatinine assay has traceable calibration to isotope dilution-mass spectrometry. Refer to KDIGO guidelines for clinical interpretation. In patients with unstable renal function, e.g. those with acute kidney injury, the eGFR may not accurately reflect actual GFR. Performed By: #### 2 532-0, 43405-6 #### [facility] CLIA [id number] [address] [place] [address] Glucose [Mass/Vol] 97 mg/dL Normal 74-99 [facility] Comment on above: Order Comment: Speci men Type: BLOOD SPECIMEN Ordering Facility: [facility] Address: [address] [place] [address] Result Comment: The [place] [employer] (ADA) provides guidance for cutoff values for fasting glucose and random glucose. The ADA defines fasting as no caloric intake for at least 8 hours. Fasting plasma glucose results between 100 to 125 mg/dL indicate increased risk for diabetes (prediabetes). Fasting plasma glucose results greater than or equal to 126 mg/dL meet the criteria for diagnosis of diabetes. In the absence of unequivocal hyperglycemia, results should be confirmed by repeat testing. In a patient with classic symptoms of hyperglycemia or hyperglycemic crisis, random plasma glucose results greater than or equal to 200 mg/dL meet the criteria for diagnosis of diabetes. Reference: Standards of Medical Care in Diabetes 2016, [place] [employer]. Diabetes Care. 2016.39(Suppl 1). Performed By: #### 2 532-0, #### [facility] CLIA [id number] [address] [place] [address] Potassium [Moles/Vol] 4.4 mmol/L Normal 3.7-5.1 [facility] Comment on above: Order Comment: Speci men Type: BLOOD SPECIMEN Ordering Facility: [facility] Address: [address] Performed By: #### 2 532-0, 71453-1 #### [facility] CLIA [id number] [address] [place] [address] Protein [Mass/Vol] 7.1 g/dL Normal 6.3-8.0 [facility] Comment on above: Order Comment: Speci men Type: BLOOD SPECIMEN Ordering Facility: [facility] Address: [address] Performed By: #### 2 532-0, 89022-1 #### [facility] CLIA [id number] [address] [place] [address]56 Sodium [Moles/Vol] 141 mmol/L Normal 136-144 [facility] Comment on above: Order Comment: Speci men Type: BLOOD SPECIMEN Ordering Facility: [facility] Address: [address] Performed By: #### 2 532-0, 02330-0 #### [facility] CLIA [id number] [address] [place] [address] Urea nitrogen [Mass/Vol] 33 mg/dL High 7-21 [facility] Comment on above: Order Comment: Speci men Type: BLOOD SPECIMEN Ordering Facility: [facility] Address: [address] [place] [address] Performed By: #### 2 532-0, 28197-5 #### [facility] CLIA [id number] [address] [place] [address] ESR Westergren method (Bld) [Velocity]on 05-02-2022 ESR (Bld) [Velocity] 79 mm/h High 0-20 [facility] Comment on above: Order Comment: Speci men Type: BLOOD SPECIMENOrdering Facility: [facility] Address: [address] [place] [address] Performed By: #### 4 537-7 ####[facility] [id number] [place] [address] [place] Ferritin SerPl-mCncon 2022 Ferritin [Mass/Vol] 113.0 ng/mL Normal 14.7-205.1 [facility] Comment on above: Order Comment: Speci men Type: BLOOD SPECIMEN Ordering Facility: [facility] Address: [address] [place] [address] Performed By: #### 5 0190-8, 1987-5, 6-4 #### [facility] CLIA [id number] [address] [place] [address] [place] Folate SerPl-mCncon 05-02-19 23 Folate [Mass/Vol] 3.4 ng/mL Low >4.7 [facility] Comment on above: Order Comment: Speci men Type: BLOOD SPECIMEN Ordering Facility: [facility] Address: [address] [place] [address] Performed By: #### 2 132-9, 22848 #### [facility] CLIA [id number] [address] [place] [address] [place] Iron and Iron binding capaci ty panelon 05-02-2022 Iron [Mass/Vol] 52 ug/dL Normal 41-186 [facility] Comment on above: Order Comment: Speci men Type: BLOOD SPECIMEN Ordering Facility: [facility] Address: [address] [place] [address] Performed By: #### 5 0190-8, 2275-06 #### [facility] CLIA [id number] [address] [place] [address] [place] Iron binding capacity [Mass/Vol] 310 ug/dL Normal 232-386 [facility] Comment on above: Order Comment: Speci men Type: BLOOD SPECIMEN Ordering Facility: [facility] Address: [address] [place] [address] Performed By: #### 5 0190-8, 2275-06 #### [facility] CLIA [id number] [address] [place] [address] [place] Iron/TIBC [Molar ratio] 16.8 % Normal 15.0-57.0 [facility] Comment on above: Order Comment: Speci men Type: BLOOD SPECIMEN Ordering Facility: [facility] Address: [address] [place], [place] [address] Performed By: #### 5 0190-8, 2275-06 #### [facility] CLIA [id number] [address] [place] [address] [place] LDH SerPl-cCncon 05-02-2022 LDH [Catalytic activity/Vol] 177 U/L Normal 135-214 [facility] Comment on above: Order Comment: Speci men Type: BLOOD SPECIMEN Ordering Facility: [facility] Address: [address] [place] [address] Performed By: #### 2 532-0, 55618-4 #### [facility] CLIA [id number] [address] [place] [address]863 Vit B12 [facility] 023 Cobalamin (Vitamin B12) [Mass/Vol] 510 pg/mL Normal 232-1245 [facility] Comment on above: Order Comment: Speci men Type: BLOOD SPECIMEN Ordering Facility: [facility] Address: [address] [place] [address] Performed By: #### 2 132-9, 2284-8 #### [facility] CLIA [id number] [address] [facility] [place] [id number] [address] [place] NM Whole body Views W In-111 tagged WBC Thea 03-11-2022 IMPRESSION: No definite scintigraphic evidence of periprosthetic infection about the right knee arthroplasty. RADIOLOGY EXAM: NUC WBC STUDY, NUC BONE MARROW LIMITED AREA HISTORY: Elevated synovial white blood cell count, pain prosthetic joint, history of right knee arthroplasty placed 9 months ago. COMPARISON: Knee radiographs 2. TECHNIQUE: The patient's white blood cells labeled with 461 uCi of indium-111 and images were performed of the knees. The patient was also injected with 9.6 mCi of technetium 9M sulfur colloid and images were again performed the knees. FINDINGS: White blood cell and bone marrow scans demonstrate normal marrow activity in the distal femurs. There is mild to moderate increased activity in the distal femur and proximal tibia adjacent to the knee arthroplasty on the bone marrow and white blood cell scans slightly asymmetric in the region of the right lateral femoral condyle however the white blood cell and bone marrow scans are fairly congruent with no definite mismatch activity in white blood cell scan to indicate periprosthetic infection. Findings are consistent with altered marrow distribution. RADIOLOGY Teresa Steve MD - 03/11/2022 EXAM: NUC WBC STUDY, NUC BONE MARROW LIMITED AREA HISTORY: Elevated synovial white blood cell count, pain prosthetic joint, history of right knee arthroplasty placed 9 months ago. COMPARISON: Knee radiographs 2. TECHNIQUE: The patient's white blood cells labeled with 461 uCi of indium-111 and images were performed of the knees. The patient was also injected with 9.6 mCi of technetium 9M sulfur colloid and images were again performed the knees. FINDINGS: White blood cell and bone marrow scans demonstrate normal marrow activity in the distal femurs. There is mild to moderate increased activity in the distal femur and proximal tibia adjacent to the knee arthroplasty on the bone marrow and white blood cell scans slightly asymmetric in the region of the right lateral femoral condyle however the white blood cell and bone marrow scans are fairly congruent with no definite mismatch activity in white blood cell scan to indicate periprosthetic infection. Findings are consistent with altered marrow distribution. IMPRESSION IMPRESSION: No definite scintigraphic evidence of periprosthetic infection about the right knee arthroplasty. [facility] [place] Whole body Views W In-111 tagged WBC IVOrdered By: Teresa Steve on 03-11-2022 [facility] Work Phone: NUC BONE MARROW LIMITED AREA on 03-11-2022 NUC BONE MARROW LIMITED AREA EXAM: NUC WBC STUDY, NUC BONE MARROW LIMITED AREA HISTORY: Elevated synovial white blood cell count, pain prosthetic joint, history of right knee arthroplasty placed 9 months ago. COMPARISON: Knee radiographs 2. TECHNIQUE: The patient's white blood cells labeled with 461 uCi of indium-111 and images were performed of the knees. The patient was also injected with 9.6 mCi of technetium 9M sulfur colloid and images were again performed the knees. FINDINGS: White blood cell and bone marrow scans demonstrate normal marrow activity in the distal femurs. There is mild to moderate increased activity in the distal femur and proximal tibia adjacent to the knee arthroplasty on the bone marrow and white blood cell scans slightly asymmetric in the region of the right lateral femoral condyle however the white blood cell and bone marrow scans are fairly congruent with no definite mismatch activity in white blood cell scan to indicate periprosthetic infection. Findings are consistent with altered marrow distribution. IMPRESSION: No definite scintigraphic evidence of periprosthetic infection about the right knee arthroplasty. Normal [facility] NUC WBC STUDYon 03-11-2022 NUC WBC STUDY EXAM: NUC WBC STUDY, NUC BONE MARROW LIMITED AREA HISTORY: Elevated synovial white blood cell count, pain prosthetic joint, history of right knee arthroplasty placed 9 months ago. COMPARISON: Knee radiographs 2. TECHNIQUE: The patient's white blood cells labeled with 461 uCi of indium-111 and images were performed of the knees. The patient was also injected with 9.6 mCi of technetium 9M sulfur colloid and images were again performed the knees. FINDINGS: White blood cell and bone marrow scans demonstrate normal marrow activity in the distal femurs. There is mild to moderate increased activity in the distal femur and proximal tibia adjacent to the knee arthroplasty on the bone marrow and white blood cell scans slightly asymmetric in the region of the right lateral femoral condyle however the white blood cell and bone marrow scans are fairly congruent with no definite mismatch activity in white blood cell scan to indicate periprosthetic infection. Findings are consistent with altered marrow distribution. IMPRESSION: No definite scintigraphic evidence of periprosthetic infection about the right knee arthroplasty. Normal [facility] Whole body Views W In-111 tagged WBC Thea 03-10-2022 Radiology Study observation (narrative) [facility] CNOVSPon 02-28-2022 CNOVSP Visit (SP) Office ([place]) SD REHMAN ([id number]) 1950 F Date Time Provider Department 02/28/22 3:00 PM DENNIS LOMAS During your visit today, we recorded the following information about you: Temperature Pulse Respiration Blood pressure 97.1 degrees 85/minute 16/minute 147/72 Weight Height 100.7 kg 1.575 m Dennis Lomas MD 03/11/2022 8:25 AM Signed NAME: Sd Rehman CLINIC NO.: [id number] DATE OF SERVICE: February 28, 2022 ([place]) Referring Provider: Odell Jones Consultation requested by Dr. Jones for an opinion regarding Rob Rehman, and my final recommendations will be communicated back to the requesting physician by way of shared medical record or letter via US mail. Additional Clinicians involved in Sd Rehman's care: Olivia Devries DIAGNOSIS: leukocytosis ASSESSMENT: 71 year old with chronic leukocytosis and multiple pro inflammatory causes. This appears to be primarily related to her inflamed right knee implant is causing significant mount of pain. She additionally has recently quit smoking but more likely has chronic inflammation related to this again causing a chronic leukocytosis that is mostly neutrophilic in nature. This process is unlikely to be a primary issue and is most likely secondary. However, it warrants monitoring and I will plan on seeing her back in April with repeat laboratories. I also noted that she has mild macrocytosis which will also plan on evaluating. PLAN: Labs in April on return RTC same day - HPI: CASE HISTORY: Reverse Chronological Order 02/17/2022 CBC: 13.6 > 14.0/41.8 < 397, MCV 100.5 11/21/2021 CBC: 13.4 > 12.1/35.9 < 254 absolute neutrophils 10,000, absolute lymphocytes 2000. MCV 102.3 RDW 16.3. 09/27/2021 protein electrophoresis with immunofixation negative for M spike normal kappa lambda ratio. 09/19/2021 CBC 10.3 > 13.4/40.6 < 268, absolute neutrophils 7000, absolute lymphocytes 2300, MCV 101 Initial Visit, February 28, 2022: Sd Rehman presents today Hematology and Oncology evaluation. She is a 71 year old female who Is accompanied by her daughter Jacy for evaluation of leukocytosis. She has a prior history of chronic kidney disease stage IIIb, in addition to lumbar radiculopathy as well as bilateral knee replacements that are in need of revision. She also has a history of atrial fibrillation, COPD, gout, hypertension. Additionally she is a smoker 50 pack years and quit smoking approximately 3 weeks ago. Pertinent laboratories noted above in Case History. Sd has a significant amount of pain in her right knee in particular. She really needs her knee revised and she tells me that the implant is currently loose at the point of insertion causing a significant degree of pain and inflammation. She has had an arthrocentesis done and fluid was positive with white blood cells per her report. Given her history, she has multiple pro inflammatory factors that are likely contributing to her chronic leukocytosis. - REVIEW OF SYSTEMS Per HPI and otherwise negative by full review of organ systems. - ECOG PERFORMANCE STATUS: 1 PHYSICAL EXAMINATION: Vitals: BP 147/72 Pulse 85 Temp (Src) 97.1 (Temporal) Resp 16 Ht 5' 2 (1.58m) Wt 222 lb (100.7kg) SpO2 96% BMI 40.59 kg/(m2). Body surface area is 2.1 meters squared. Exam limited to gross visualization where appropriate due to COVID-19. Gen.: This is an age-appropriate patient in no acute distress while seated, however, she has significant amount of difficulty standing and ambulating even with an assist device. Both legs are swollen chronically. Head: Appears atraumatic with no visible lesions. Eyes: Pupils equally round and reactive to light, extraocular muscles are intact. Neck: Supple. Mouth: Masked. Respiratory: Appears to be respiring comfortably. Neurologic: Nonfocal to gross visualization. Alert and oriented ?3. Psychiatric: No evidence of inappropriate anxiety or depression. Skin: Visible areas of skin without rash, lesions, wounds or petechiae. - ALLERGIES: ALLERGIES No Known Allergies MEDICATIONS: acetaminophen 325 mg cap Take 500 capsules by mouth every 4 hours as needed. albuterol HFA (PROVENTIL HFA, VENTOLIN HFA) 90 mcg/actuation inhaler albuterol sulfate HFA 90 mcg/actuation aerosol inhaler INHALE 2 PUFFS EVERY 4 HOURS NEEDED FOR SHORTNESS OF BREATH allopurinol (ZYLOPRIM) 300 mg tablet allopurinol 300 mg tablet TAKE 1 T (more content not included)... Normal [facility] LYNDA DOP LEG BILon 022 US LYNDA DOP LEG LAKESHIA EXAMINATION: US LYNDA DOP LEG LAKESHIA HISTORY: Peripheral vascular disease (disorder) COMPARISON: No relevant comparison available. FINDINGS: REGION: Bilateral lower extremities THROMBI: None. COMPRESSIBILITY: Normal compressibility. FLOW: Normal waveform and antegrade flow between 5 and 20 cm/s. OTHER: None. IMPRESSION: 1. No deep vein thrombus within the right or left lower extremity. Electronically authenticated by: TERESA AZUL Date: 2022-02-27 14:[address] [facility] LARGE JOINT/BURSA INJECTION AND/OR ASPIRATION: R knee 02-20-2022 Radiology Study observation (narrative) [facility] LARGE JOINT/BURSA INJECTION AND/OR ASPIRATION: R kneeon 02-19-2022 Navin Clark MD 02/20/2022 2:33 PM LARGE JOINT/BURSA INJECTION AND/OR ASPIRATION: R knee Date/Time: 02/19/2022 2:30 PM Supporting Documentation Indications: pain Procedure Details: Location: knee - R knee Local Anesthetic: lidocaine 1% Needle size: 18 G Medication Verification: I have personally verified and performed the final check of the medication(s) used in this procedure prior to administration. The following items were included during the verification process for medication(s) administered: drug name, strength, volume, expiration, physical integrity and appearance of the medication(s). Patient tolerance: patient tolerated the procedure well with no immediate complications The patient was prepped with Chloraprep. [facility] PTH INTACTon 02-18-2022 PTH, Intact 55 pg/mL Normal 15-65 [facility] Comment on above: Performed By: #### M G, RENAL, URIC #### [facility] [address] [place] [address] Dr. Demetra Costa HEMOGRAM AND PLATELon 2021 Hematocrit (Bld) [Volume fraction] 41.8 % Normal 36.0-48.0 [facility] Comment on above: Performed By: #### H H #### [facility] [address] [place] [address] Dr. Demetra Costa Hemoglobin (Bld) [Mass/Vol] 14.0 g/dL Normal 12.0-16.0 [facility] Comment on above: Performed By: #### H H #### [facility] [address] [place] [address] Dr. Demetra Costa MCH (RBC) [Entitic mass] 33.7 pg Normal 26.7-34.0 [facility] Comment on above: Performed By: #### H H #### [facility] [address] [place] [address] Dr. Demetra Costa MCHC (RBC) [Mass/Vol] 33.5 g/dL Normal 29.9-35.2 [facility] Comment on above: Performed By: #### H H #### [facility] [address] [place] [address] Dr. Demetra Costa MCV (RBC) [Entitic vol] 100.5 fL Critically high 81.0-99.0 [facility] Comment on above: Performed By: #### H H #### [facility] [address] [place] [address] Dr. Demetra Costa PLT 397 103/ul Normal 150-450 [facility] Comment on above: Performed By: #### H H #### [facility] [address] [place] [address] Dr. Demetra Costa RBC 4.16 106/ul Critically low 4.20-5.40 [facility] Comment on above: Performed By: #### H H #### [facility] [address] [place] [address] Dr. Demetra Costa WBC 13.6 103/ul Critically high 4.0-11.0 [facility] Comment on above: Performed By: #### H H #### [facility] [address] [address] [address] Demetra Costa MAGNESIUMon 02-17-2022 Magnesium [Mass/Vol] 2.0 mg/dL Normal 1.8-2.4 [facility] Comment on above: Performed By: #### M G, RENAL, URIC #### [facility] [address] [place] [address] Dr. Demetra Costa RENAL FUNCTION PANELon 02-17 Albumin [Mass/Vol] 3.4 g/dL Normal 3.4-5.0 [facility] Comment on above: Performed By: #### M G, RENAL, URIC #### [facility] [address] [place] [address] Dr. Demetra Costa Calcium [Mass/Vol] 10.1 mg/dL Normal 8.5-10.1 [facility] Comment on above: Performed By: #### M G, RENAL, URIC #### [facility] [address] [place] [address] Dr. Demetra Costa Chloride [Moles/Vol] 99 mmol/L Normal 98-107 [facility] Comment on above: Performed By: #### M G, RENAL, URIC #### [facility] [address] [place] [address] Dr. Demetra Costa CO2 [Moles/Vol] 24.9 mmol/L Normal 21.0-32.0 [facility] Comment on above: Performed By: #### M G, RENAL, URIC #### [facility] [address] [place] [address] Dr. Demetra Costa Creatinine [Mass/Vol] 1.79 mg/dL Critically high 0.55-1.02 [facility] Comment on above: Performed By: #### M G, RENAL, URIC #### [facility] [address] [place] [address] Dr. Demetra Costa EGFR-AF MONEGASQUE 34 mL/min/1.73m2 Critically low >=60 [facility] Comment on above: Performed By: #### M G, RENAL, URIC #### [facility] [address] [address] [address] Demetra Costa EGFR-NON AF MONEGASQUE 28 mL/min/1.73m2 Critically low >=60 [facility] Comment on above: Performed By: #### M G, RENAL, URIC #### [facility] [address] [address] [address] Demetra Costa Glucose [Mass/Vol] 127 mg/dL Critically high 74-106 [facility] Comment on above: Performed By: #### M G, RENAL, URIC #### [facility] [address] [address] [address] Demetra Costa Phosphate [Mass/Vol] 3.6 mg/dL Normal 2.6-4.7 [facility] Comment on above: Performed By: #### M G, RENAL, URIC #### [facility] [address] [place] [address] Dr. Demetra Costa Potassium [Moles/Vol] 4.1 mmol/L Normal 3.5-5.1 [facility] Comment on above: Performed By: #### M G, RENAL, URIC #### [facility] [address] [address] [address] Demetra Costa Sodium [Moles/Vol] 137 mmol/L Normal 136-145 [facility] Comment on above: Performed By: #### M G, RENAL, URIC #### [facility] [address] [address] [address] Demetra Costa Urea nitrogen [Mass/Vol] 41.0 mg/dL Critically high 7.0-18.0 [facility] Comment on above: Performed By: #### M G, RENAL, URIC #### [facility] [address] [address] [address] Demetra Costa URIC ACID SERUMon 02-17-2022 Urate [Mass/Vol] 7.9 mg/dL Critically high 2.6-6.0 [facility] Comment on above: Performed By: #### M G, RENAL, URIC #### [facility] [address] [address] [address] Demetra Costa VITAMIN D 25 OHon 02-17-2022 VIT D 25-OH 33.4 ng/mL Normal [facility] Comment on above: Performed By: #### M G, RENAL, URIC #### [facility] [address] [place], [place] [address] Dr. Demetra Costa VIT D RANGES SEE BELOW Normal [facility] Comment on above: Result Comment: <20 ng/mL Vit D deficient 20 - <30 ng/mL Vit D insufficient 30 - 100 ng/mL Vit D sufficient >100 ng/mL Potential Toxicity Performed By: #### M G, RENAL, URIC #### [facility] [address] [place], [place] [address] Dr. Demetra Costa C REACTIVE PROTEINon 022 CRP [Mass/Vol] 12.3 mg/L High 0 - 10.0 MG/L [facility] Interpretation and review of laboratory results Abnormal [facility] SEDIMENTATION RATE, AUTOMATE Don 01-02-2022 ESR (Bld) [Velocity] 44 mm/h [facility] Interpretation and review of laboratory results Abnormal [facility] Coding Summaryon 12-27-2021 Coding Summary HTMLBase 64 RakozqveYRw0kRy+PGhlYW Q+EU1RGMXiA89qhKRshQ4O M9lHCA7JSAVNPLBEPN6CDY 1hyKX7EXxpX9MeelFu ChorqQQyKD77LEh0BNZ3tX djRRmvjV0ykUSwF1z3ZrAb AW87cQ70USccYOXjXmH3Qe ZpbjsgbWFy I0byQpYqnRFbXln+PHRhYm xlIHdpZHRoPScxMDAlJyBz sBpxZE3aIf9kPEDmICNkcE xhcHNlOiBj f2tmGAJjEAhsJD9lmQphB0 AleNW7PFWun7m8Oy52zHB+ DUIwQRF9fOjyRDbrv648Ev Zwd1edLYE8 tEVgKKtqTVB2F67gr4W7ZI ThBDSkVMX5xZD7nV3nmYtd hmvuI4PfzTOsZzP3ZRV9zW UrbD4loOrd ogejiY1cTzj+Y34XXK2CMC TGSK0QYla2F3FaLejlyMW+ CV13RXJfKE79bHRbpRTen5 wsrBy2MtCn GODnUTT9cBvfIPxca2GnKS PxI81yqWKkd6I3AXRjtNui eADiCkTbtNY7hH2oFOglbv tly6smqmux Ttyej1jafz95iU90D78uKI tcGQToACK4EABlJAZrqImq xe2kqL2jHx3+SZqsy6gwx8 ydnZk2CoUr GLMlvwPpxWvbTLN4q3JrEs 15X9SkiOlin7IvVti5kq74 lKKen0Q8tIC8TQexQKHqhT 2yQTxvVvQ4 BMBhFuTsjR44lMWuQHzyNi 5iwSozcMokOK5sEIJylaiq SQJayJ9cBPOviKOmgWojWR 4wNTBpbjtm w504SoBmRYS2AZNkyKEqP9 OwbI5vShBgFVHmXPDxB4By dQAiUXwkG510VYluFwG3BH RxjkZoT9Ui NRFztTtcDzT6e1O9Il6Rw2 MpfwquKYT1RThmOETsCrB7 SaWeQvL7U4HzXfj9VEAmhN rwNN1dZ9Ba GCEywfbdaetibLC8YRUvQR KtdN38qQRcOCzvRb9jy5P1 n248GSHyLHKyyA73Tp5rnN ogMTBwdCBU uA1xvqxvh3pynoofHyVtQB GwLIe7DZu3VQGuhIlfDnRf EYV6HgM5MFV5yWHykJ2dvG xsphxvzC1k Oyc+S55pvV8tGAO8LPF6tq qtNOLwctEfYA27IL48H2Va PjwvdGFibGU+PGRpdiBzdH aeNC3pYmHt l0gyv0QrMUadW1FzRQOlZD reBog2YMCqPJR3wYT1zD4z NWCpZUhef8B2aIB2J2Dpil Cgib6cv8pg QLPnEHqiC99slAZvv9S5CG PotOJ7JACxrPknFqVnlW37 Oyc+VIBbtDjto7GwLmybo8 epd1dbhAw0 JzPdEAHfxeGknIymAQW1u2 ZzUn47E51dCEbfWPNvSHVv EEEsWAPzdVeiqi3ljM9rZg 8+PGNvbCB3 nIM5pO4iBRDzUcW8XXinI6 60LdCgtTHzHfukm6bvl3py eIi4KoXiWPWukiZhgEjxOE A6l0OjXb27 A40jWZzuQFTzSVXqBLXwLB AsvJwemk0itK8lVo8+PC9j x4suvv47mR55sAS+PHRkIH L8dJncAKks RHOncB2qDVapLyL9MEMxIc SpeV48sUHeXBblOb9tnTyt iDsiFW0pQNYqtcren723Eu Zqt4ewCATh eKXjEZwsFRI0Q24lb9E3RT XkYFCkUJQ7lWX7pU9rqSkq bjogbGVmdDsgdmVydGljYW wvUHffA047 IHRvcDsnPlBhdGllbnQgTm HhREn9N1AxLda3VSKztEmm OQ1chXLgUDkqWb6leQxwhS vmZU9vOXVh snemn707NaRan8tiXFXzgL NpFJhrVLU9V50wt1H7HGUx JSSzJTT7iJF5lQ2msUhiyl ogbGVmdDsg uyUpyQwkDUnbUEeeW684OS RvcDsnPkJpcnRoIERhdGU6 SH74KS23lRIfv7R2eNN3E3 BhZGRpbmct laoxbVX2YCNmSRIboL10Tk 0wqOatFg1iTSTwTTI2TBHj rQSoU2QldZ0rGzOlTAAsVF NmY0GvbSPw UIvzQ225KNglDrG4JABjzg IdC1JuJMGinEmcQxX7o4B5 Bg3EY8M2BC84JH40sLSzy7 B1vOO6K2Qq SUZctrslizueqAX1RRTrQU MwuC86Nf1qfRwlWj8eNTAd NVL5DNFbbXAbS0GkmE7oRb AjMDAwMDAw R5JgrODnIDieF555AMlyTh Y0BWNsnpQxV0KuYTGfrWcv AvW0f9L5Nt4LTIv8VA78PV 25qSRvx3J8 zLL6R8OqZAFsbxjrcevchC F7RAWxWREeoS66Yb4rwVkx Si2wXPWiLXG8EYKwzSRpD3 NruX7fRkOo PABkRVOdY1BvqZFpFAyvH3 85VIxgSdX8JCWsryIeA2Rk RZWyvNthZvL9r7J4Xn8OMJ QlPT79ONZ5 bTW5JA46IL40G5HzCpnnhM FibGU+PHRhYmxlIHdpZHRo CNxfBQTeWqYudYbkWZ9eUb 9yZGVyLWNv xJrsrJUpHvFbv4lvCGUgZY azHJ1yfHevM1XwnPO4LMVa d4u9Us92A98hM1PleYQ+PG PjuQV3wVS9 nR7nQdKcIaE8SVwtW293Pa UvkMAdRioqi7bkr7velBb1 WpT1JSTqsfByvJapTZG7t1 WeRi92H49f IHdpZHRoPSIxNSUiIHZhbG yqbg9zdG9uWm0+PGNvbCB3 bRB8jZ4eFnLpHbF9PYyaR5 49InRvcCIv Bkhey8isd3lrjNl0DjXrPA UzyhXfeNdgEEW7b2NySo47 B5NjdKzyu3QdKvj1pi09iI Gvh2U4oBR9 S6DhHDCyooshsPXmrQpvKZ 1sMVOyhykkSJQndT2vVECq W6d0FeEoGyN8IZrqO7Ahbq R5HMQjnYKi AOcuVTV4F04me1P0QSCtVW LnVFB2yBV1cC1omWtrvhdr bGVmdDsgdmVydGljYWwtYW fqJ396DSLq kGsuRGHptD3fQYVdmNQrnP fhZQ9bVVZoibagNsjIMXWU RVIsIEJBUkJBUkEgRzwvdG Q+PHRkIHN0 rLylBAzpONCrxD7kRKUqW3 z8DaMnGhT7YNqpT1LlDSKk ixmsTn61qR5sPyCwAhQ5PS meM5DszzC4 SQGqfKGrGMfbDQP5Z24nf5 H7NBHoLZEoFXA9nBL9xM6d bGlnbjogbGVmdDsgdmVydG ljYWwtYWxp I767IGSolGcnFuD7SsO9Qw L9JCW3B8PiBqd8QHRpdQfh KK0dvJFlCMrwTb4spJlwnE zdXA8lDVLg todrSQDcqA9uXOFetFWtiO dxKO5zBAVnxniqe537OaJs KHQ1YVMtkLDsT4VtaU9lZv AjMDAwMDAw P3JawJVuIBcxX547NIngCd R7TISlfwPoF4QaKNVhrZwj DbE7b3R9Hf32DHTXKQXxle wvdGQ+PHRk DMH3nUqwHJugZEZnoI8aPV McM3k6BmHqSpX1OZmeX0Ch VHYafzfzQj19bB0vLzSiVz Y6IWmqM6Tk osW5BKRkwUDkVGbmAHJ9L6 0st2G8ZKQvJTCsTQZ3pIL9 bL6etOnfuuwgiODwbLaouf VydGljYWwt GRpmR284OAXlpVkzJaZQPE FMRTwvdGQ+SZIeHLK2qFjo ERipYTGeqY1hTAWmY3m3Vl HmZbM5OOml J9LhZUQbytmxXa07vJ0dNn NuIeO2KLgbY6OxuyF5MZWz jNDnUFulONR3H08cn3A4UE MwMDAwMDA7 kIK0yQ6xsMgtxtannNRvfY kpogXbzAsbTBgnXEmeT752 LFDslVflZy9SHL40PG51R1 RyPjwvdGFi bGU+PHRhYmxlIHdpZHRoPS zsFNYhDnZjoFeuTT8oXb1h ZGVyLWNvbGxhcHNlOiBjb2 xsYXBzZTsg ZN5iiWltY2VpiNI9EWZhr0 d8Mr47O25hD5DjrYG+PGNv oSH5lIX2mV0kUlNuEfN2RP aeW711JsHz bIMtUzwhp1ofj4rpqVn3Bx ClZRNbqjHirDriHKO2h8Ch Sg11V24sZZqwJREaOXUvXK UiIHZhbGln zo5nqH0kEw8+PVMsbQP4hD V4kD6wEqThUfX6ZYhvT192 YkBdsJBsXbivI46lH9TorQ A+PHRyPjx0 KKGkuWvfVY8pbZJbETjoXb 5xYHC8WjBnWrUlPOqcO1Jm IJOsfxvqsyrthAX4VFYrJT JdmG22Qy7b fZxfLx7yUYLhVBT7NDMoeG WkI1AqcH4qCrIkDDEsJVAf Q8NixBMlMVrkG346QDhuZr Y7PXHwynZj M4CsHQGrgVxsWdU4t5V0Jk 3CjQaowEBpJS5cBcPkOKj3 L6EvHzn0BKIbiBzhXW9hrV AlBSgaMy9i oDlutIxtZM0sFCDofhcsb1 43UuAci6yxOTFpzMJeKZlo KFT3O14pq2L7KOIaFKVsEP J8fJY5aS3r bGlnbjogbGVmdDsgdmVydG ipVQhcBEztP615MJEoyWdv TpHJQnz9T3NqOzg9MHQzfG mePI8qmZXo SEakRa5gnAgdnXtiEG4jSG Dqplrjl862XtKjq5haMYSu yYUuCZorMGL7B28zu7R5QB MwMDAwMDA7 vIB4gN2mkXrmlyzfeXVgoE asymLnpGkpBGiwRYprT997 EXBqxHqiMh4MHdw4N8AgHq l7DKNrfCfr FU1tcWNoOSkzOo9ecVtbaX lgNJ0yXBDvdbmbt637DtCw y2nfWXBbbHCgDLvzLWD7L3 1hb5T8ZMFf WKDkOCV6aJD2pK4fsDobay ogbGVmdDsgdmVydGljYWwt RPacD285OYNkaWceMcZuqG VyOjwvdGQ+ LO12ln20K5XqQvzlUqk4MF DnZUW0vBD5xF1oBZOaSMie c6B0vQB4Q2HgwvCmes5gj3 xsYXBzZTog Y29 (more content not included)... [facility] Coding Summary HTMLBase 64 JbbvrtjdWUc5qMg+PGhlYW Q+SK8ZDOXhS18nbLPbzW5Z C8yEKD4UWFJLSNERVW1FOQ 1qsPT4VOsrM2EwejUz MgrzsNIpIM84ZFu9ZSE0yK lpCGbidS8foQSvO0w1JiAr PQ88eY97GNesWKAqWpO4Sd ZpbjsgbWFy D8vbCdRgfUWtWdu+PHRhYm xlIHdpZHRoPScxMDAlJyBz zPpdSM7uLs1tYJDnGYXvaK xhcHNlOiBj y9jeANXtPIhtIP4yrKvaN9 WxfEY7OJEgh4a5Nh43vTV+ HHBiTJV6tZqoIOhvx560Zr Kvs1zeGLQ6 vVKnNIupAGZ4B95an3P5OX CfUBYbISV7kBT8nT4lkEfr befdF3NebGNbWmP5RIM5aS RpdN1rdSpw ayyqmH6eNer+F15JBO6WOE RQBR5EKzw3J1NfWlbsxZA+ XF02HXVoWH15qZIouCTqv9 rxlLe0CeSt OHMhVGW4dTijQZmxi4EbBU MoH74swLRxb9K0SMTmbOyn fFVcXzTvyPO8pB5jBFsykh uzx4yvdiqk Lwvij3akii85nF01Z69oVD afSQCfOGU9ZCGgQQXhgSgl tb2zfG6zIk7+TJfvl3hmt6 zlkIp7VrCc CYIvhmLwlIbqMVW4a3SxWh 37U3NwfWesn0RgLjt1vl21 tNSqv1X3rXY4FMhlFDTvfD 3hIKwfLaM7 QOOtShDlgB68iMHcYIvsAj 6boNasrAxmBN2cFZNovbye NSKepK1sVHDktINnzPisYM 4wNTBpbjtm r560XvShTWT7CFFveOAzL4 MjoI2rDaWfHJGbZKWmX0Yg iUUiUGcnS655AGbjRsG1XK VmbyFzL4Iq KEGxoCscZeX1s7L0Ms8Kd9 TzruafGPY4JNnrBOMxFbY3 EyMrPtZ2G9WnCrk5VIIbcS mjPD1xQ1Ah BUJigqphsmzgdUA1INMmIP HyhV18lPYzZJxwZl8th3J1 d502FSXwJEEszZ56Ix7sdR ogMTBwdCBU rV5lfnsxy3elkaxxEaPjYB UhMNi4DPv5KELizKmxYoZg IJN9WzM7JGB2fMGynU4kzD sfvqktdW4k Oyc+T89qhN8oXYW2DLW6ga chXQIwqmVvFZ73QQ40S9Se PjwvdGFibGU+PGRpdiBzdH clST4xBlCu d4yem4ZpGEjyD8LkCDDtQB wqTgr0DQXiQOV1vIV3wK1c MKBaFTdlm7O6wWE1X3Oawn Twxx8oc3zq CFKfYZiuT34tkBEgb9J7FI YxhFL9BWAvwSzvRfWpnZ05 Oyc+JPYmvBjvh1WfPcdta2 hel6eedOq3 KoVwBBQebeGqnGnoGLK9q7 LvBu15A99vWTlrPZLbISFu PRRnJCRjiRdvfz6tuI8iYm 8+PGNvbCB3 lOO7rL5aICCmDmU7QYmrR4 78JvEauWWdVtaxv9nxm7gq aHn4BfRtZXQtkzRltVseXJ S9v8SqCp12 A51wYGemHCAgDUTxLCAbTE ElyPplqt2zoP5vUi9+PC9j a5ycnw70xA02gKQ+PHRkIH E6hXjlNJhw RKImoD0aGVsuPlO9NBKvGi PzwA10aFQtVGyvWp7hdUgm hAkgMR8wNRDdhcuke893St Uao0dzQWCj fHXaYZvcRZT5H75da9C6YJ GbNLQjBVH5vXI6lT2goKss bjogbGVmdDsgdmVydGljYW wiZDjzF738 IHRvcDsnPlBhdGllbnQgTm XoPZa1C8GmIvn4ARPafVia OP8oaRIsKMhcOp6lxXxbdC iuWG3sQQWc lzwhx565OhEww8ksCEPsdI IiJIqeFGT5V90lp9N6NXCm LACzFUE6xOF7eC9zlSgkxo ogbGVmdDsg ofDphZxkDCmxKYhfC362XU RvcDsnPkJpcnRoIERhdGU6 RQ74DI65cTYrz3B1ySB2X2 BhZGRpbmct nywotTX9XVGgQZCcvR76Rb 8erRpgNl4hSBQePQN2NIMo pGVgB3LbaO7wIzJiAMUmRH TyG2CiaVMk UMkoQ967INedHpW5WYLlpe OoP9AnNHOrySchGbI1d7P4 Fu4RB9L4MM72DH82nQHte2 Z6hRG4F6Tj PEWssdnnjjuygRU8OGUfLT TahR68Ij5yuFeqUt7xZULf MDM7QVKimDBtR5QqiT0lBi AjMDAwMDAw Z7OfeYVzMYbuW581MCrhCq L9MSSeieKkU8InGJPcdSzh VrP0i5G6Bs3XWOp8KN56GX 45qQPic3R2 zBS8B5EtTOIqnzfstlrsvK V9BXYsZIPpbR27Li7ytTsk Sl6gUQJzEPQ5IVPhqAJpP7 QpxW2vDmGa FHOdQSXoS4YzcAKuMTkiV9 14CGqkCpZ1YXYotoJkF5Rh PURzzOhsCvT9s8M0Uu1OMU LiHC60HLE3 uFH8FU67GT72S7PsZkfiaJ FibGU+PHRhYmxlIHdpZHRo OZnlKJKtWnLrkLogVJ6rJc 9yZGVyLWNv oEculCLbCmSix8pwLPVhTK niNA0waGjcV6HowVX7LTCa k7f6Vd71L62sU7ErhOM+PG UbzXQ2nKY7 hK3mFaPoUnV0DYmhS948Jq CrdLKuGclen4pzx6qokDt7 GdE1VXLqgzOvzLgyZOX6j4 AgBm58C45h IHdpZHRoPSIxNSUiIHZhbG zmcy3zhH4tTy7+PGNvbCB3 jQI2nZ8jDkNuYdB7GEbnG9 49InRvcCIv Gssjt0lvj2yawDj4QwFrAZ IczoJnyAzaVTB9h5UfXz53 W9BjrRczf9ArYut0fl75hI Bhp9V8zQU5 P1PeVPIxgqljzEDkfCogXR 1eZAQqpkchOTOvsV4uXYTu F5o4PlCdNqM2RDvkD1Vseo M4VKIfaNOc EDcjEJF4Q78cd6M4QLBlUS NfPWS0gFM6xM5cyYcxhsbt bGVmdDsgdmVydGljYWwtYW cjW643GRBk yVydXSMpyK2xYCWuqLWyiB qhNT4wLAKphausQhnAJYWU RVIsIEJBUkJBUkEgRzwvdG Q+PHRkIHN0 iIutDUmaZVAybI5dRKGjJ6 l5MqSgMdX5ERvpH2HrRTTs lcmqKr83jK2mUmCxWcG6ZY abI7ZtcoD5 AMTvxQCuZCzbDLH5E92dp1 J0MEZuHDLaNAB3cFT2uC2v bGlnbjogbGVmdDsgdmVydG ljYWwtYWxp P936VWTgdWnqOtM1GyO2Zv M7REG9Y4DtPqq0KSVfbYxv SF0qoVMpTRhsTo0btAbooC hnKD2tUMDp wmibCKYboM0aFRYvvSKnqW dcNW3oZCLycdbwi602OoFv QCA5SFZdwIEtJ8CryF0iPe AjMDAwMDAw H5OogPCgJGpbA521UJqsIc Q3HNOcdcBxY6DqPEOsnAld LxI8r9N3Og99ISLIJETqts wvdGQ+PHRk QZZ9vDfzIYyvFIFrdU4wWM ZxR0v0TfMhKuK0JNqtV6Yg JKYdbknkFw94nY0zPiEzMm F8BQmfJ5Sa rbQ9LMEiyYWmMYdxBFX8P4 1hu9X1XOHkNCToAAL7qBV6 rH5reMmpqrgyeMMhxIqbid VydGljYWwt MRwoE730CLIopRddHeKFXA FMRTwvdGQ+ZKFrAHA1jSma URybLFUoxG2lMEMeV2p5Zn QfGaG0ARgt M9MaLUDtdrzmAk30sZ4yEr FfRbC7DOwcH4GjikA4FDZk qYSvEFewLTO5U96ts4H0AM MwMDAwMDA7 hPQ0xC6loNsksvokkQRpqM xfwaUjcDudJUygRDiuC338 IVEnfGbvCvWyGTNgUH2qxZ wvdGQ+PC90 qh54I8TiEwdcZme6FQBtJL D5kMM5dC3fTPAyPEguv0E9 bXT0O0OlcqBzls5pa5xcEQ VpWFlvU85a tSAoi0Y6AADpiUY8WXUpwB cmTdItgG26Ajq+PGNvbGdy l7DxNcpae0xbb6qgySc1Xi MwJSIgdmFs pDefHLB4f5KuVt15J95tGI dpZHRoPSIzMCUiIHZhbGln dl9tgE5zVz5+TNTmqZA0sN N0pQ0lWlYp VaV4LThrZ043AvBmkTLyHh xze4hfz5qxbIe3IaYyAPVc gtLurMmqLKA1b9UoQs96Y3 KpmQyee3Ar Ued1vx51gFUtn2X8lNP9Q7 QuFPOarqtifJRwhNhpYL6d EMCkbidlXZFfsH9fVAFgI6 e3MtZoXwH2 LByrZ3FdrqV2KAYyoRRvEW LvjFIEtU4ltzwgb9qfdwps KrBvDXHfRBp6FDo5JVEzqL duOiBsZWZ0 RwA8OWM9mANdzT5dkWtkuw wijM0oXve+SRy2m8qnzZPn RP7ytXS7CY49SB25rDIet2 M5zKB7R1Eb AHOcwvpwrakakSP7YQMyKS AkgY21Ka6txNvzOu0yHYIq HMW5FGBscXLlD6BwqK5aQi AjMDAwMDAw R6FhbNVrAAqhF101MZxxXv Q0MTIcltPcO1FdRKIpiDny WuS4h7K5Bt2WBI82YN37WV 60rWFbf4P8 oLA9Z7KaEQRxydwbpnramN V5XMXeHFVtiL32Tr8mmZie Ao4mNAJdCOS9WHAtdUUmB9 HitS7xHgPy CGNhOAEiO6FooSSeQDioB4 69HXvqLnQ4PPPltqUcD3Od JPDhfJolRdT4j9E1Kb6TNf 13GS40SP79 lUUva7J2bFQ1G1JxXJGwvr feunrxxWH1GZQaPXMbhM95 Tz7clDreEv1hGWXaUSA5CD UlsNTbW6Da pO0hPhQfKFMnIBShH6TuxV NuRXztX703LSczEhN2ANBe srFzH8VfNJFwoAevDfE6r6 W7Bm9VVOwm mvh3Y4QhKovlxXN+PC90YW IfFF31yHQrcFUdk3oroNv9 DtFuQEXgMHO5fKusGVgpf0 XqUNToZ66c bGF (more content not included)... Normal [facility] CT Head or Brain w/o Contras ama 12-14-2021 CT Head or Brain w/o Contrast CT HEAD WITHOUT CONTRAST. INDICATION: Closed head injury. On blood thinners. COMPARISON: None available for comparison TECHNIQUE: Axial CT head images from the skull base to the vertex without IV contrast were acquired. Coronal and sagittal reformats were also obtained. FINDINGS: EXTRA-AXIAL SPACE: Age-appropriate ventricles. No acute extra-axial collection. No extra-axial mass. No midline shift. CEREBRUM: There are areas of periventricular and deep white matter low-attenuation, which is nonspecific but likely reflective of chronic microvascular ischemic disease.. No CT evidence of acute large territorial cortical infarct, hemorrhage or mass effect. CEREBELLUM: No focal abnormality. No CT evidence of acute infarct, hemorrhage or mass effect. BRAINSTEM: No focal abnormality. No CT evidence of acute infarct, hemorrhage or mass effect. EXTRACRANIAL STRUCTURES. The paranasal sinuses are clear. Mastoid air cells are clear. Orbits are unremarkable. No discrete pituitary mass. Intact calvarium. IMPRESSION: 1. No acute intracranial abnormality. 2. Moderate to severe chronic microvascular ischemic changes. Final Dictated by: Néstor Marcus MD Dictated DT/TM: 12/14/21 6:33 Signed (Electronic Signature): Néstor Marcus MD 12/14/21 6:37 pm Technologist: MARCY Berg [facility] ED Clinical Summaryon 2021 ED Clinical Summary [facility] - Emergency Department [address] [place] [address] ED Clinical Summary PERSON INFORMATION Name: SD REHMAN Age: 71 Years Sex: FEMALE : 1950 MRN: Acct#: Visit Reason: Closed head injury without LOC; FALL-HEAD/RT WRIST INJURY Arrival: 12/14/2021 17:41:04 Discharge: 12/14/2021 18:56:00 LOS: 000 01:15 Check In: 12/14/2021 17:41:04 Checkout:12/14/2021 18:56:00 Address: [address] [place] [address] PCP: PATRICK ODOM PROVIDER INFORMATION Provider Role Assigned Unassigned Jignesh He PA-C ED PA 12/14/2021 17:44:02 Starr RN, [facility] ED Nurse 12/14/2021 17:48:00 VITALS INFORMATION Vital Sign Triage Latest Temperature Tympanic Temperature Temporal Artery Pulse Rate 88 bpm 86 bpm O2 Sat 99 % 100 % Respiratory Rate 20 br/min 20 br/min Blood Pressure /112 mmHg /112 mmHg MEDICAL INFORMATION Medications Given: Medication Dose Route acetaminophen (Tylenol) 1000 mg PO Allergy Information: No known allergies PHYSICIAN DOCUMENTATION Patient: SD REHMAN Age: 71 years Sex: FEMALE : 1950 Associated Diagnoses: Skin tear of right upper extremity; Fall (on) (from) other stairs and steps; Contusion of right knee; Closed head injury without loss of consciousness; Elevated blood pressure reading Author: Jignesh He PA-C Basic Information Time seen: Date & time 12/14/2021 17:44:00. History source: Patient, daughter. Arrival mode: Private vehicle. History limitation: None. History of Present Illness 71-year-old female with history of atrial fibrillation, hypertension currently taking Xarelto presents here to the emergency department with her daughter after falling coming out of a camper. Patient states when she came out of the camper she stepped onto the mat and she slipped and continue to fall forward. She states she landed on her right side on the right knee right wrist and is struck the right side of her head. She denies any loss of consciousness she denies any nausea vomiting episodes she denies any dizziness lightheadedness or weakness. She states she laid on the ground for approximately 5 to 10 minutes before she allowed somebody to help her up she states she then had pain in the right knee. She has a history of a right knee total replacement but states she is due to see a specialist in regards to her revision as she states compared to her last years x-rays something has shifted. She denies any right wrist pain but does note a right wrist skin tear in which the neighbor gave her some gauze and had taped it for her. She states a minor headache or head discomfort she would rated as a 2 out of 10 on the pain scale she denies any history of brain bleed mass or fracture. She would rated the right knee discomfort as a 4 out of 10 on the pain scale worse with walking or movement. She does note a bruise to the right anterior knee. She denies any other trauma or injuries she denies any neck pain hip pain or back pain. Denies any blurred vision double vision change in vision she denies any slurred speech weakness numbness or tingling of the extremities. Again she denies headache. She has no other concerns at this time. Review of Systems Constitutional symptoms: No fever, no chills, no sweats, no weakness, no fatigue. Skin symptoms: Abrasions, Abrasion right anterior knee, skin tear right wrist, bruising of right knee, hematoma right forehead, no rash, no pruritus. Eye symptoms: Vision unchanged, no pain, no discharge, no diplopia, no blurred vision, no blindness. ENMT symptoms: No ear pain, no sore throat, no nasal congestion, no sinus pain. Respiratory symptoms: No shortness of breath, no cough. Cardiovascular symptoms: No chest pain, no palpitations, no tachycardia, no syncope, no diaphoresis, no peripheral edema. Gastrointestinal symptoms: No abdominal pain, no nausea, no vomiting, no diarrhea, no constipation. Genitourinary symptoms: No dysuria, no hematuria. Musculoskeletal symptoms: Joint pain, Right knee pain, skin tear of right wrist, no back pain, no Muscle pain. Neurologic symptoms: No headache, no dizziness, no altered level of consciousness, no numbness, no tingling, no weakness. Additional review of systems information: All other systems reviewed and otherwise negative. Health Status Allergies: Allergic Reactions (Selected) No known allergies. Past Medical/ Family/ Social History Medical history: No active or resolved past medical history items have been selected or recorded.. Surgical history: No active procedure history items have been selected or recorded.. Family history: No family history items have been selected or recorded.. Social history: Social & Psychosocial Habits Alcohol 12/14/2021 Alcohol Use: Never Substance Abuse 12/14/2021 Substance use: Never Tobacco 12/14/2021 Smoking tobacco use: Never tobacco user Electronic Cigarette/Vaping 12/14/2021 Electronic [employer]ig[employer] (more content not included)... Normal [facility] ED Note - Physicianon 2021 ED Note - Physician Patient: SD REHMAN Age: 71 years Sex: FEMALE : 1950 Associated Diagnoses: Skin tear of right upper extremity; Fall (on) (from) other stairs and steps; Contusion of right knee; Closed head injury without loss of consciousness; Elevated blood pressure reading Author: Neri TERRY, Jignesh Ferraro Basic Information Time seen: Date & time 12/14/2021 17:44:00. History source: Patient, daughter. Arrival mode: Private vehicle. History limitation: None. History of Present Illness 71-year-old female with history of atrial fibrillation, hypertension currently taking Xarelto presents here to the emergency department with her daughter after falling coming out of a camper. Patient states when she came out of the camper she stepped onto the mat and she slipped and continue to fall forward. She states she landed on her right side on the right knee right wrist and is struck the right side of her head. She denies any loss of consciousness she denies any nausea vomiting episodes she denies any dizziness lightheadedness or weakness. She states she laid on the ground for approximately 5 to 10 minutes before she allowed somebody to help her up she states she then had pain in the right knee. She has a history of a right knee total replacement but states she is due to see a specialist in regards to her revision as she states compared to her last years x-rays something has shifted. She denies any right wrist pain but does note a right wrist skin tear in which the neighbor gave her some gauze and had taped it for her. She states a minor headache or head discomfort she would rated as a 2 out of 10 on the pain scale she denies any history of brain bleed mass or fracture. She would rated the right knee discomfort as a 4 out of 10 on the pain scale worse with walking or movement. She does note a bruise to the right anterior knee. She denies any other trauma or injuries she denies any neck pain hip pain or back pain. Denies any blurred vision double vision change in vision she denies any slurred speech weakness numbness or tingling of the extremities. Again she denies headache. She has no other concerns at this time. Review of Systems Constitutional symptoms: No fever, no chills, no sweats, no weakness, no fatigue. Skin symptoms: Abrasions, Abrasion right anterior knee, skin tear right wrist, bruising of right knee, hematoma right forehead, no rash, no pruritus. Eye symptoms: Vision unchanged, no pain, no discharge, no diplopia, no blurred vision, no blindness. ENMT symptoms: No ear pain, no sore throat, no nasal congestion, no sinus pain. Respiratory symptoms: No shortness of breath, no cough. Cardiovascular symptoms: No chest pain, no palpitations, no tachycardia, no syncope, no diaphoresis, no peripheral edema. Gastrointestinal symptoms: No abdominal pain, no nausea, no vomiting, no diarrhea, no constipation. Genitourinary symptoms: No dysuria, no hematuria. Musculoskeletal symptoms: Joint pain, Right knee pain, skin tear of right wrist, no back pain, no Muscle pain. Neurologic symptoms: No headache, no dizziness, no altered level of consciousness, no numbness, no tingling, no weakness. Additional review of systems information: All other systems reviewed and otherwise negative. Health Status Allergies: Allergic Reactions (Selected) No known allergies. Past Medical/ Family/ Social History Medical history: No active or resolved past medical history items have been selected or recorded.. Surgical history: No active procedure history items have been selected or recorded.. Family history: No family history items have been selected or recorded.. Social history: Social & Psychosocial Habits Alcohol 12/14/2021 Alcohol Use: Never Substance Abuse 12/14/2021 Substance use: Never Tobacco 12/14/2021 Smoking tobacco use: Never tobacco user Electronic Cigarette/Vaping 12/14/2021 Electronic Cigarette Use: Never . Problem list: No qualifying data available . Physical Examination General: Alert, no acute distress. Skin: Warm, dry, intact, no pallor, no rash, No rashes. Patient has superficial abrasion to the right anterior knee with underlying bruising to the right anterior knee. Patient has a skin tear to the posterior aspect of the right wrist at the radial aspect which measures approximately 2 cm x 2 cm no active bleeding. No deep lacerations. Patient has a small abrasion to the right anterior forehead overlying a small hematoma measuring 2 x 2 to meters.. Head: Normocephalic, Patient has a hematoma to the right side of the forehead measuring 2 cm x 2 cm in diameter. No open wounds small abrasion overlying the hematoma.. Neck: Supple, no tenderness. Eye: Pupils are equal, round and reactive to light, extraocular movements are intact, normal conjunctiva, Pupils are equal round and reactive to light. Extraocular movements are intact.. Ears, nose, mouth and throat: Oral mucosa moist. Cardiovascular: Regular r (more content not included)... Normal [facility] ED Note-Nursingon 12-14-2021 ED Note-Nursing PA(KIM) washed skin tear with saline and betasept, see PA note. Nonstick dressing and gauze wrapped around site. Normal [facility] ED Note-Nursing Patient arrives afte r falling from the first step on her camper. Patient did hit her head, no LOC. Hematoma. Patient has c/o right knee pain and right wrist pain. Small skin tear on right wrist. Patient does take blood thinners. Alert and oriented. Event occurred around 1600. Normal [facility] ED Patient Summaryon 022 ED Patient Summary [facility] - Emergency Department [address] [place] [address] PATIENT DISCHARGE INSTRUCTIONS Patient Information Name: SD REHMAN Age: 71 Years Date of : 1950 Reason For Visit: Closed head injury without LOC; FALL-HEAD/RT WRIST INJURY Arrival Time: 12/14/2021 17:41:04 Primary Care Physician: PATRICK ODOM Attending Physician: Elijah Terrazas MD Comment: Visit Diagnosis: Diagnoses This Visit Closed head injury without LOC ([id number]) Closed head injury without loss of consciousness (S09.90XA) Contusion of right knee (S80.01) Elevated blood pressure reading (R03.0) Fall (on) (from) other stairs and steps (W10.8) Skin tear of right upper extremity (S41.111A) The Pharmacy at [facility] is open Thursday through Thursday from 9A to 6P and Thursday and Thursday from 9A to 5P Prescription Information: If you have been given a prescription for narcotics, seek immediate medical attention if you have any difficulty breathing or any sudden status changes such as confusion and sleepiness. If you or anyone you know is experiencing suicidal thoughts, mental health, alcohol and/or drug addiction problems; contact the Mental Health & Recovery Board [facility] 13/10 Crisis Hotline -Text 4HEJS an 812077. If you received any narcotics, sedation, or any other medication that causes drowsiness for the next 24 hours, unless otherwise directed: ? Do not drive a car. ? Do not operate machinery such as power tools, lawn mowers, drills, sewing machines, or stoves ? Avoid alcoholic beverages and drugs for allergies, nerves, or sleep ? Do not make important personal or business decisions or sign any legal documents With: Address: When: [place] [address] Business (1) Within 3 to 5 days Comments: Please follow-up with your primary care provider in 3 to 5 days. Please contact their office on Thursday morning to schedule a follow-up appointment. You were seen and evaluated in the emergency department today in regards to a fall. You had a head CT completed in regards to striking the right side of the forehead that is negative for any brain bleed mass or fracture. X-ray of the right knee was completed which is negative for any fractures or dislocations. You had a right wrist skin tear in which we used for skin tear is a natural Band-Aid and a nonstick dressing was used to cover the area after about 48 hours you may remove the nonstick dressing and wash gently with warm soap and water pat dry and continue to use a nonstick dressing the skin flap will most likely diet need to be clipped off at a later date but this will provide a natural Band-Aid for the skin tear. Continue Tylenol as needed for pain or discomfort. You may return here to the emergency department develop any sudden severe onset headache, headache with nausea vomiting episodes or for any other worsening or concerning symptoms. Medication Information: The exam and treatment you received today in the [facility] Emergency Department were for an urgent problem and are not intended as complete care. It is important for you to follow up with a doctor, nurse practitioner, or physician?s behavioral assistant for ongoing care. If your symptoms become worse or you do not improve as expected and you are unable to reach your usual health care provider, you should return to the Emergency Department, we are available 24 hours a day. For those patients who have received Radiology results, the interpretation of your X-ray as given to you by our Emergency Department physician is only a preliminary report. The Radiologist will review your films and if there is a change in the diagnosis you will be notified by phone. Please make sure you have provided a working phone number so we can reach you if necessary. In the event that you had a lab culture while you were a patient in the Emergency Department, you will be notified by phone if there is a need to change your antibiotic. Please make sure you have provided a working phone number so we can reach you if necessary. [facility] Emergency Department has provided you with a complete list of medications post discharge. Please inform your primary care coordinator/provider of your visit and for further instruction on these medications. Any specific questions regarding your chronic medications and dosages should be discussed with your primary care physician(s) and/or pharmacist. Visit Information Allergies: Substance Reaction Symptoms Type Comments No known allergies Drug Vital Signs: Vitals and Measurements this Visit (last charted value for your 12/14/2021 visit) Vital Signs This Visit Temperature Oral: 36.9 DegC Peripheral Pulse Rate: 86 bpm Respiratory Rate: 20 br/min Systolic Blood Pressure: 155 mmHg Diastolic Blood Pressure: 93 mmHg SpO2: 100 % Oxygen Therapy: Room air (more content not included)... Normal [facility] XR Knee Complete Righton XR Knee Complete Right X-RAY OF THE right knee HISTORY: fall, right knee pain and bruising COMPARISON: There are no previous studies available for comparison. TECHNIQUE: 4 views of the right knee. FINDINGS: BONE DENSITY: Demineralized. JOINTS: Intact total knee arthroplasty. Small knee joint effusion. FRACTURE: No acute fracture. DISLOCATION: None. SOFT TISSUES: No radiopaque foreign body. Vascular calcifications. IMPRESSION: 1. No acute osseous abnormality. 2. Intact total knee arthroplasty. 3. Small knee joint effusion. Final Dictated by: Néstor Marcus MD Dictated DT/TM: 12/14/21 6:21 Signed (Electronic Signature): Néstor Marcus MD 12/14/21 6:23 pm Technologist: Kristen RODAS Normal [facility] Covid-19 PCR (CVDTBH)on 11-21 SARS-CoV-2 (COVID-19) RNA GABRIELA+probe Ql (Unsp spec) Not detected Normal NOT DETECTED [facility] Comment on above: Result Comment: This test is not yet approved or cleared by the [place] FDA. When there are no FDA-approved or cleared tests available, and other criteria are met, FDA can make tests available under an emergency access mechanism called an Emergency Use Authorization (EUA). The EUA for this test is supported by the [place] of Health and Human Service's (HHS's) declaration that circumstances exist to justify the emergency use of in vitro diagnostics for the detection and/or diagnosis of the virus that causes COVID-19. This EUA will remain in effect (meaning this test can be used) for the duration of the COVID-19 declaration justifying emergency of IVDs, unless it is terminated or revoked by FDA (after which the test may no longer be used). When diagnostic testing is negative, the possibility of a false negative should be considered in the context of a patient's recent exposures and the presence of clinical signs and symptoms consistent with SARS-CoV-2. Performed By: #### M G, RENAL, URIC #### [facility] [address] [place] [address] Dr. Demetra Costa BNPon 11-21-2021 Natriuretic peptide B (Bld) [Mass/Vol] 234.0 pg/mL Normal <=900.0 [facility] Comment on above: Performed By: #### U PARESH, CMP #### [facility] [address] [place] [address] Dr. Demetra Costa CBC AUTO DIFFon 11-21-2021 BASO # 0.1 103/ul Normal 0.0-0.1 [facility] Comment on above: Performed By: #### C BC #### [facility] [address] [place] [address] Dr. Demetra Costa Basophils/100 WBC (Bld) 0.4 % Normal 0.2-2.0 [facility] Comment on above: Performed By: #### C BC #### [facility] [address] [place] [address] Dr. Demetra Costa EO # 0.2 103/ul Normal 0.0-0.7 [facility] Comment on above: Performed By: #### C BC #### [facility] [address] [place] [address] Dr. Demetra Costa Eosinophils/100 WBC (Bld) 1.3 % Normal 0.9-7.0 [facility] Comment on above: Performed By: #### C BC #### [facility] [address] [address] [address] Demetra Costa Erythrocyte distribution width (RBC) [Ratio] 16.3 % Critically high 11.0-15.0 [facility] Comment on above: Performed By: #### C BC #### [facility] [address] [place] [address] Dr. Demetra Costa Hematocrit (Bld) [Volume fraction] 35.9 % Critically low 36.0-48.0 [facility] Comment on above: Performed By: #### C BC #### [facility] [address] [place] [address] Dr. Demetra Costa Hemoglobin (Bld) [Mass/Vol] 12.1 g/dL Normal 12.0-16.0 [facility] Comment on above: Performed By: #### C BC #### [facility] [address] [place] [address] Dr. Demetra Costa IG # 0.08 10e3/ul Critically high 0.00-0.03 [facility] Comment on above: Performed By: #### C BC #### [facility] [address] [place] [address] Dr. Demetra Costa IG % 0.6 % Critically high 0.0-0.5 [facility] Comment on above: Performed By: #### C BC #### [facility] [address] [place] [address] Dr. Demetra Costa LYMPH # 2.0 103/ul Normal 1.2-3.8 [facility] Comment on above: Performed By: #### C BC #### [facility] [address] [place] [address] Dr. Demetra Costa Lymphocytes/100 WBC (Bld) 14.8 % Critically low 20.5-60.0 [facility] Comment on above: Performed By: #### C BC #### [facility] [address] [place] [address] Dr. Demetra Costa MANUAL DIFF REQ NO Normal [facility] Comment on above: Performed By: #### C BC #### [facility] [address] [address] [address] Demetra Costa MCH (RBC) [Entitic mass] 34.5 pg Critically high 26.7-34.0 [facility] Comment on above: Performed By: #### C BC #### [facility] [address] [place] [address] Dr. Demetra Costa MCHC (RBC) [Mass/Vol] 33.7 g/dL Normal 29.9-35.2 [facility] Comment on above: Performed By: #### C BC #### [facility] [address] [place] [address] Dr. Demetra Costa MCV (RBC) [Entitic vol] 102.3 fL Critically high 81.0-99.0 [facility] Comment on above: Performed By: #### C BC #### [facility] [address] [place] [address] Dr. Demetra Costa MONO # 1.1 103/ul Critically high 0.3-0.8 [facility] Comment on above: Performed By: #### C BC #### [facility] [address] [place] [address] Dr. Demetra Costa Monocytes/100 WBC (Bld) 8.1 % Normal 1.7-12.0 [facility] Comment on above: Performed By: #### C BC #### [facility] [address] [place] [address] Dr. Demerta Costa NEUT # 10.0 103/ul Critically high 1.4-6.5 [facility] Comment on above: Performed By: #### C BC #### [facility] [address] [place] [address] Dr. Demetra Costa Neutrophils/100 WBC (Bld) 74.8 % Normal 43.0-75.0 [facility] Comment on above: Performed By: #### C BC #### [facility] [address] [place] [address] Dr. Demetra Costa Platelet mean volume (Bld) [Entitic vol] 9.8 fL Normal 9.5-13.5 [facility] Comment on above: Performed By: #### C BC #### [facility] [address] [address] [address] Demetra Costa PLT 254 103/ul Normal 150-450 [facility] Comment on above: Performed By: #### C BC #### [facility] [address] [address] [address] Demetra Costa RBC 3.51 106/ul Critically low 4.20-5.40 [facility] Comment on above: Performed By: #### C BC #### [facility] [address] [address] [address] Demetra Costa WBC 13.4 103/ul Critically high 4.0-11.0 [facility] Comment on above: Performed By: #### C BC #### [facility] [address] [place] [address] Dr. Demetra Costa PROF CHEM 8 (BAS METB)on Anion gap [Moles/Vol] 12.8 mmol/L Normal [facility] Comment on above: Performed By: #### U PARESH, CMP #### [facility] [address] [place] [address] Dr. Demetra Costa Calcium [Mass/Vol] 8.8 mg/dL Normal 8.5-10.1 [facility] Comment on above: Performed By: #### U PARESH, CMP #### [facility] [address] [place] [address] Dr. Demetra Costa Chloride [Moles/Vol] 104 mmol/L Normal 98-107 [facility] Comment on above: Performed By: #### U PARESH, CMP #### [facility] [address] [place] [address] Dr. Demetra Costa CO2 [Moles/Vol] 25.6 mmol/L Normal 21.0-32.0 [facility] Comment on above: Performed By: #### U PARESH, CMP #### [facility] [address] [place] [address] Dr. Demetra Costa Creatinine [Mass/Vol] 1.51 mg/dL Critically high 0.55-1.02 [facility] Comment on above: Performed By: #### U PARESH, CMP #### [facility] [address] [address] [address] Demetra Costa EGFR-AF MONEGASQUE 41 mL/min/1.73m2 Critically low >=60 [facility] Comment on above: Performed By: #### U PARESH, CMP #### [facility] [address] [address] [address] Demetra Costa EGFR-NON AF MONEGASQUE 34 mL/min/1.73m2 Critically low >=60 [facility] Comment on above: Performed By: #### U PARESH, CMP #### [facility] [address] [address] [address] Demetra Costa Glucose [Mass/Vol] 103 mg/dL Normal 74-106 [facility] Comment on above: Performed By: #### U PARESH, CMP #### [facility] [address] [address] [address] Demetra Costa Potassium [Moles/Vol] 5.4 mmol/L Critically high 3.5-5.1 [facility] Comment on above: Performed By: #### U PARESH, CMP #### [facility] [address] [address] [address] Demetra Costa Sodium [Moles/Vol] 137 mmol/L Normal 136-145 [facility] Comment on above: Performed By: #### U PARESH, CMP #### [facility] [address] [address] [address] Demetra Costa Urea nitrogen [Mass/Vol] 35.0 mg/dL Critically high 7.0-18.0 [facility] Comment on above: Performed By: #### U PARESH, CMP #### [facility] [address] [address] [address] Demetra Costa Urea nitrogen/Creatinine [Mass ratio] 23.2 mg/mg Normal [facility] Comment on above: Performed By: #### U PARESH, CMP #### [facility] [address] [address] [address] Demetra Costa US LYNDA DOP LEG BILon 022 US LYNDA DOP LEG LAKESHIA EXAM: Vascular bilateral lower extremity venous duplex. HISTORY: 71 years old Female presenting with Peripheral edema. TECHNIQUE: Multiple images are obtained in the transverse and longitudinal dimensions. Color, grayscale, and Doppler imaging was performed. COMPARISON: None FINDINGS: Visualized venous structures of the bilateral lower extremities demonstrate normal compressibility, phasicity, and augmentation from the level of the common femoral vein to the popliteal vein cephalad. Focused Doppler analysis in the visualized common femoral, femoral, and popliteal veins reveals normal flow with distal augmentation. Color Doppler evaluation of these veins is also normal. Complex Dickens's cyst is seen in the right popliteal fossa measuring approximately 3.2 x 1.3 x 1.8 cm. IMPRESSION: No ultrasound evidence of deep venous thrombosis in bilateral lower extremities. Complex Dickens's cyst is seen in the right popliteal fossa measuring approximately 3.2 x 1.3 x 1.8 cm. Electronically authenticated by: ASHLEY WEAVER Date: 2021-11-21 21:[address] [facility] XR CHEST 2 Von 11-21-2021 XR CHEST 2 V EXAM: XR CHEST 2 V HISTORY: Peripheral edema COMPARISON: None. TECHNIQUE: Upright PA and lateral chest x-ray FINDINGS: The heart is at the upper limits of normal in size without evidence of cardiac decompensation. The vasculature is not distended. No acute infiltrate, effusion or pneumothorax is identified. Flattening of the hemidiaphragms indicating COPD. Degenerative changes are seen in the spine and shoulder girdle. IMPRESSION: No acute infiltrate or evidence of cardiac decompensation. Flattening of the hemidiaphragms indicating COPD. Direct comparison with a previous study is recommended to verify stability of these findings. Electronically authenticated by: NGHIA ANGUIANO Date: 2021-11-21 19:[address] [facility] CT LUNG CANCER SCREENINGon 0 11-05-2021 CT LUNG CANCER SCREENING EXAMINATION: CT LUNG CANCER SCREENING HISTORY: Nicotine dependence COMPARISON: CT lung cancer screening 11/01/2020, 11/19/2017 TECHNIQUE: Axial, Coronal, and Sagittal images were created without the administration of IV contrast material. Dose reduction techniques were achieved by using automated exposure control and/or adjustment of mA and/or kV according to patient size and/or use of iterative reconstruction technique. FINDINGS: LUNGS: Stable chronic scarring within lateral right upper lobe. Hyperexpanded lungs suggestive of mild COPD. No acute infiltrates or suspicious nodules. PLEURA: No mass, effusion, or pneumothorax. VASCULATURE: No abnormality. YOGESH: No mass or pathologic adenopathy. MEDIASTINUM: No mass or pathologic adenopathy. CARDIAC: No enlargement, pericardial thickening, or significant calcification. AORTA: No aneurysm or dissection. CHEST WALL: No mass or axillary adenopathy BONES: Kyphosis of thoracic spine. Marked degenerative changes of the glenohumeral joints bilaterally. LIMITED ABDOMEN: Chronic nodular appearance of the kidneys, likely mixture of simple and complex cysts. Limited images of the upper abdomen. OTHER: Negative. IMPRESSION: 1. LUNG SCREENING: Lung-RADS Category 2- Benign Appearance or Behavior. Nodules with a very low likelihood of becoming a clinically active cancer due to size or lack of growth. 2. Continue annual screening with LDCT in 12 months. 2. Stable mild emphysematous changes. 3. Appearance of kidneys likely represents a mixture of simple and complex cysts. A mass cannot be excluded. Consider CT imaging of abdomen and pelvis with IV contrast clinically indicated. Electronically authenticated by: TERESA AZUL Date: 2021-11-05 06:49 Normal [facility] IMMUNOFIX ELEC, PROTEIN ELEC URINEon 10-01-2021 Albumin, U 72.1 % Normal [facility] Comment on above: Performed By: #### U PARESH, CMP #### [facility] [address] [address] [address] Demetra Costa Ulmjo-2-Hnaybvzf, U 1.4 % Normal [facility] Comment on above: Performed By: #### U PARESH, CMP #### [facility] [address] [address] [address] Demetra Costa Devxp-3-Vfslfvmm, U 6.1 % Normal [facility] Comment on above: Performed By: #### U PARESH, CMP #### [facility] [address] [address] [address] Demetra Costa Beta Globulin, U 14.6 % Normal [facility] Comment on above: Performed By: #### U PARESH, CMP #### [facility] [address] [address] [address] Demetra Costa Gamma Globulin, U 5.8 % Normal [facility] Comment on above: Performed By: #### U PARESH, CMP #### [facility] [address] [place] [address] Dr. Demetra Costa Immunofixation Result, Urine Comment Normal [facility] Comment on above: Result Comment: No m onoclonality detected. Performed By: #### U PARESH, CMP #### [facility] [address] [place] [address] Dr. Demetra Costa M-Evans, % Not Observed Normal Not Observed [facility] Comment on above: Performed By: #### U PARESH, CMP #### [facility] [address] [place] [address] Dr. Demetra Costa Note: Comment Normal [facility] Comment on above: Result Comment: Prot ein electrophoresis scan will follow via computer, mail, or stallion keeper delivery. Performed By: #### U PARESH, CMP #### [facility] [address] [place] [address] Dr. Demetra Costa PDF . Normal [facility] Comment on above: Performed By: #### U PARESH, CMP #### [facility] [address] [place] [address] Dr. Demetra Costa Protein (U) [Mass/Vol] 79.0 mg/dL Normal Not Estab. [facility] Comment on above: Performed By: #### U PARESH, CMP #### [facility] [address] [place] [address] Dr. Demetra Costa IMMUNOFIXATION(NISHA),PROTEIN ELEC(PE),[facility] 09-[facility]-2021 Albumin [Mass/Vol] 3.5 g/dL Normal 2.9-4.4 [facility] Comment on above: Performed By: #### I FEPEFL #### [facility] [address] [place] [address] Dr. Demetra Costa Albumin/Globulin [Mass ratio] 1.3 {ratio} Normal 0.7-1.7 [facility] Comment on above: Performed By: #### I FEPEFL #### [facility] [address] [place] [address] Dr. Demetra Costa Txvoa-3-Hcrpduqz 0.3 g/dL Normal 0.0-0.4 [facility] Comment on above: Performed By: #### I FEPEFL #### [facility] [address] [place] [address] Dr. Demetra Costa Jrxgd-1-Zyjmjutl 1.1 g/dL Critically high 0.4-1.0 [facility] Comment on above: Performed By: #### I FEPEFL #### [facility] [address] [place] [address] Dr. Demetra Costa Beta Globulin 1.1 g/dL Normal 0.7-1.3 [facility] Comment on above: Performed By: #### I FEPEFL #### [facility] [address] [place] [address] Dr. Demetra Costa Free Rainelle Lt Chains,S 19.2 mg/L Normal 3.3-19.4 [facility] Comment on above: Performed By: #### I FEPEFL #### [facility] [address] [place] [address] Dr. Demetra Costa Free Lambda Lt Chains,S 20.6 mg/L Normal 5.7-26.3 [facility] Comment on above: Performed By: #### I FEPEFL #### [facility] [address] [place] [address] Dr. Demetra Costa Gamma Globulin 0.4 g/dL Normal 0.4-1.8 [facility] Comment on above: Performed By: #### I FEPEFL #### [facility] [address] [place] [address] Dr. Demetra Costa Globulin (S) [Mass/Vol] 2.9 g/dL Normal 2.2-3.9 [facility] Comment on above: Performed By: #### I FEPEFL #### [facility] [address] [place] [address] Dr. Demetra Costa Immunofixation Result, Serum Comment Normal [facility] Comment on above: Result Comment: No m onoclonality detected. Performed By: #### I FEPEFL #### [facility] [address] [place] [address] Dr. Demetra Costa Immunoglobulin A, Qn, Serum 171 mg/dL Normal 87-352 [facility] Comment on above: Performed By: #### I FEPEFL #### [facility] [address] [address] [address] Demetra Costa Immunoglobulin G, Qn, Serum 470 mg/dL Critically low 586-1602 [facility] Comment on above: Performed By: #### I FEPEFL #### [facility] [address] [address] [address] Demetra Costa Immunoglobulin M, Qn, Serum 29 mg/dL Normal 26-217 [facility] Comment on above: Performed By: #### I FEPEFL #### [facility] [address] [place] [address] Dr. Demetra Costa Rainelle/Lambda Ratio, S 0.93 Normal 0.26-1.65 [facility] Comment on above: Performed By: #### I FEPEFL #### [facility] [address] [place] [address] Dr. Demetra Costa M-Evans Not Observed Normal Not Observed [facility] Comment on above: Performed By: #### I FEPEFL #### [facility] [address] [place] [address] Dr. Demetra Costa PDF . Normal [facility] Comment on above: Performed By: #### I FEPEFL #### [facility] [address] [place] [address] Dr. Demetra Costa Please note: Comment Normal [facility] Comment on above: Result Comment: Prot ein electrophoresis scan will follow via computer, mail, or stallion keeper delivery. Performed By: #### I FEPEFL #### [facility] [address] [address] [address] Demetra Costa Protein [Mass/Vol] 6.4 g/dL Normal 6.0-8.5 [facility] Comment on above: Performed By: #### I FEPEFL #### [facility] [address] [place] [address] Dr. Demetra Costa CBC AUTO DIFFon 09-19-2021 BASO # 0.1 103/ul Normal 0.0-0.1 [facility] Comment on above: Performed By: #### M G, RENAL, URIC #### [facility] [address] [place] [address] Dr. Demetra Costa Basophils/100 WBC (Bld) 0.6 % Normal 0.2-2.0 [facility] Comment on above: Performed By: #### M G, RENAL, URIC #### [facility] [address] [place] [address] Dr. Demetra Costa EO # 0.1 103/ul Normal 0.0-0.7 [facility] Comment on above: Performed By: #### M G, RENAL, URIC #### [facility] [address] [place] [address] Dr. Demetra Costa Eosinophils/100 WBC (Bld) 1.2 % Normal 0.9-7.0 [facility] Comment on above: Performed By: #### M G, RENAL, URIC #### [facility] [address] [place] [address] Dr. Demetra Costa Erythrocyte distribution width (RBC) [Ratio] 15.0 % Normal 11.0-15.0 [facility] Comment on above: Performed By: #### M G, RENAL, URIC #### [facility] [address] [place] [address] Dr. Demetra Costa Hematocrit (Bld) [Volume fraction] 40.6 % Normal 36.0-48.0 [facility] Comment on above: Performed By: #### M G, RENAL, URIC #### [facility] [address] [place] [address] Dr. Demetar Costa Hemoglobin (Bld) [Mass/Vol] 13.4 g/dL Normal 12.0-16.0 [facility] Comment on above: Performed By: #### M G, RENAL, URIC #### [facility] [address] [place] [address] Dr. Demetra Costa IG # 0.04 10e3/ul Critically high 0.00-0.03 [facility] Comment on above: Performed By: #### M G, RENAL, URIC #### [facility] [address] [address] [address] Demetra Costa IG % 0.4 % Normal 0.0-0.5 [facility] Comment on above: Performed By: #### M G, RENAL, URIC #### [facility] [address] [address] [address] Demetra Costa LYMPH # 2.3 103/ul Normal 1.2-3.8 [facility] Comment on above: Performed By: #### M G, RENAL, URIC #### [facility] [address] [place] [address] Dr. Demetra Costa Lymphocytes/100 WBC (Bld) 22.8 % Normal 20.5-60.0 [facility] Comment on above: Performed By: #### M G, RENAL, URIC #### [facility] [address] [place] [address] Dr. Demetra Costa MANUAL DIFF REQ NO Normal [facility] Comment on above: Performed By: #### M G, RENAL, URIC #### [facility] [address] [place] [address] Dr. Demetra Costa MCH (RBC) [Entitic mass] 33.3 pg Normal 26.7-34.0 [facility] Comment on above: Performed By: #### M G, RENAL, URIC #### [facility] [address] [place] [address] Dr. Demetra Costa MCHC (RBC) [Mass/Vol] 33.0 g/dL Normal 29.9-35.2 [facility] Comment on above: Performed By: #### M G, RENAL, URIC #### [facility] [address] [place] [address] Dr. Demetra Costa MCV (RBC) [Entitic vol] 101.0 fL Critically high 81.0-99.0 [facility] Comment on above: Performed By: #### M G, RENAL, URIC #### [facility] [address] [place] [address] Dr. Demetra Costa MONO # 0.7 103/ul Normal 0.3-0.8 [facility] Comment on above: Performed By: #### M G, RENAL, URIC #### [facility] [address] [address] [address] Demetra Costa Monocytes/100 WBC (Bld) 7.1 % Normal 1.7-12.0 [facility] Comment on above: Performed By: #### M G, RENAL, URIC #### [facility] [address] [address] [address] Demetra Costa NEUT # 7.0 103/ul Critically high 1.4-6.5 [facility] Comment on above: Performed By: #### M G, RENAL, URIC #### [facility] [address] [address] [address] Demetra Costa Neutrophils/100 WBC (Bld) 67.9 % Normal 43.0-75.0 [facility] Comment on above: Performed By: #### M G, RENAL, URIC #### [facility] [address] [place] [address] Dr. Demetra Costa Platelet mean volume (Bld) [Entitic vol] 9.4 fL Critically low 9.5-13.5 [facility] Comment on above: Performed By: #### M G, RENAL, URIC #### [facility] [address] [place] [address] Dr. Demetra Costa PLT 268 103/ul Normal 150-450 [facility] Comment on above: Performed By: #### M G, RENAL, URIC #### [facility] [address] [place] [address] Dr. Demetra Costa RBC 4.02 106/ul Critically low 4.20-5.40 [facility] Comment on above: Performed By: #### M G, RENAL, URIC #### [facility] [address] [place] [address] Dr. Demetra Costa WBC 10.3 103/ul Normal 4.0-11.0 [facility] Comment on above: Performed By: #### M G, RENAL, URIC #### [facility] [address] [place] [address] Dr. Demetra Costa GLYCOHEMOGLOBIN A1Con 2021 ADA RECOMMENDATION SEE BELOW Normal [facility] Comment on above: Result Comment: ADA RECOMMENDED LIMIT 4.0 - 6.0 ADA THERAPEUTIC TARGET < 7.0 ACTION SUGGESTED > 7.0 Performed By: #### A 1C #### [facility] [address] [address] [address] Demetra Costa Glucose [Mass/Vol] 123 mg/dL Normal [facility] Comment on above: Performed By: #### A 1C #### [facility] [address] [address] [address] Demetra Costa HbA1c (Bld) [Mass fraction] 5.9 % Normal 4.5-6.2 [facility] Comment on above: Performed By: #### A 1C #### [facility] [address] [place] [address] Dr. Demetra Costa PROF 14(COMP METB)on 022 Albumin [Mass/Vol] 3.2 g/dL Critically low 3.4-5.0 [facility] Comment on above: Performed By: #### U PARESH, CMP #### [facility] [address] [place] [address] Dr. Demetra Costa Albumin/Globulin [Mass ratio] 0.9 {ratio} Normal [facility] Comment on above: Performed By: #### U PARESH, CMP #### [facility] [address] [place] [address] Dr. Demetra Costa ALP [Catalytic activity/Vol] 88 U/L Normal 46-116 [facility] Comment on above: Performed By: #### U PARESH, CMP #### [facility] [address] [place] [address] Dr. Demetra Costa ALT [Catalytic activity/Vol] 25 U/L Normal 14-59 [facility] Comment on above: Performed By: #### U PARESH, CMP #### [facility] [address] [place] [address] Dr. Demetra Costa Anion gap [Moles/Vol] 15.4 mmol/L Normal [facility] Comment on above: Performed By: #### U PARESH, CMP #### [facility] [address] [address] [address] Demetra Costa AST [Catalytic activity/Vol] 11 U/L Critically low 15-37 [facility] Comment on above: Performed By: #### U PARESH, CMP #### [facility] [address] [address] [address] Demetra Costa Bilirubin [Mass/Vol] 0.4 mg/dL Normal 0.2-1.0 [facility] Comment on above: Performed By: #### U PARESH, CMP #### [facility] [address] [address] [address] Demetra Costa Calcium [Mass/Vol] 9.3 mg/dL Normal 8.5-10.1 [facility] Comment on above: Performed By: #### U PARESH, CMP #### [facility] [address] [address] [address] Demetra Costa Chloride [Moles/Vol] 102 mmol/L Normal 98-107 [facility] Comment on above: Performed By: #### U PARESH, CMP #### [facility] [address] [address] [address] Demetra Costa CO2 [Moles/Vol] 24.6 mmol/L Normal 21.0-32.0 [facility] Comment on above: Performed By: #### U PARESH, CMP #### [facility] [address] [address] [address] Demetra Costa Creatinine [Mass/Vol] 1.35 mg/dL Critically high 0.55-1.02 [facility] Comment on above: Performed By: #### U PARESH, CMP #### [facility] [address] [address] [address] Demetra Costa EGFR-AF MONEGASQUE 47 mL/min/1.73m2 Critically low >=60 [facility] Comment on above: Performed By: #### U PARESH, CMP #### [facility] [address] [address] [address] Demetra Costa EGFR-NON AF MONEGASQUE 39 mL/min/1.73m2 Critically low >=60 [facility] Comment on above: Performed By: #### U PARESH, CMP #### [facility] [address] [address] [address] Demetra Costa Globulin (S) [Mass/Vol] 3.7 g/dL Normal [facility] Comment on above: Performed By: #### U PARESH, CMP #### [facility] [address] [address] [address] Demetra Costa Glucose [Mass/Vol] 109 mg/dL Critically high 74-106 [facility] Comment on above: Performed By: #### U PARESH, CMP #### [facility] [address] [address] [address] Demetra Costa Potassium [Moles/Vol] 5.0 mmol/L Normal 3.5-5.1 [facility] Comment on above: Performed By: #### U PARESH, CMP #### [facility] [address] [place] [address] Dr. Demetra Costa Protein [Mass/Vol] 6.9 g/dL Normal 6.4-8.2 [facility] Comment on above: Performed By: #### U PARESH, CMP #### [facility] [address] [address] [address] Demetra Costa Sodium [Moles/Vol] 137 mmol/L Normal 136-145 [facility] Comment on above: Performed By: #### U PARESH, CMP #### [facility] [address] [address] [address] Demetra Costa Urea nitrogen [Mass/Vol] 28.0 mg/dL Critically high 7.0-18.0 [facility] Comment on above: Performed By: #### U PARESH, CMP #### [facility] [address] [address] [address] Demetra Costa Urea nitrogen/Creatinine [Mass ratio] 20.7 mg/mg Normal [facility] Comment on above: Performed By: #### U PARESH, CMP #### [facility] [address] [address] [address] Demetra Costa UA RANDOM W/MICROSCOPICon BACTERIA TRACE Abnormal NONE SEEN [facility] Comment on above: Performed By: #### M G, RENAL, URIC #### [facility] [address] [address] [address] Demetra Costa Bilirubin Ql (U) Negative Normal NEGATIVE [facility] Comment on above: Performed By: #### M G, RENAL, URIC #### [facility] [address] [address] [address] Demetra Costa CAST NONE SEEN Normal NONE SEEN [facility] Comment on above: Performed By: #### M G, RENAL, URIC #### [facility] [address] [address] [address] Demetra Costa Clarity (U) SL CLOUDY Abnormal CLEAR [facility] Comment on above: Performed By: #### M G, RENAL, URIC #### [facility] [address] [place] [address] Dr. Demetra Costa Color (U) LT. YELLOW Normal YELLOW [facility] Comment on above: Performed By: #### M G, RENAL, URIC #### [facility] [address] [place] [address] Dr. Demetra Costa Crystals LM Nom (Urine sed) NONE SEEN Normal NONE SEEN [facility] Comment on above: Performed By: #### M G, RENAL, URIC #### [facility] [address] [address] [address] Demetra Costa Epithelial cells LM Ql (Urine sed) FEW Abnormal NONE SEEN /RARE [facility] Comment on above: Performed By: #### M G, RENAL, URIC #### [facility] [address] [address] [address] Demetra Costa Glucose Ql (U) Negative Normal NEGATIVE [facility] Comment on above: Performed By: #### M G, RENAL, URIC #### [facility] [address] [address] [address] Demetra Costa Hemoglobin Ql (U) Negative Normal NEGATIVE [facility] Comment on above: Performed By: #### M G, RENAL, URIC #### [facility] [address] [address] [address] Demetra Costa Ketones Ql (U) Negative Normal NEGATIVE [facility] Comment on above: Performed By: #### M G, RENAL, URIC #### [facility] [address] [address] [address] Demetra Costa LEUKOCYTES Negative Normal NEGATIVE [facility] Comment on above: Performed By: #### M G, RENAL, URIC #### [facility] [address] [address] [address] Demetra Costa MUCOUS NONE SEEN Normal NONE SEEN [facility] Comment on above: Performed By: #### M G, RENAL, URIC #### [facility] [address] [address] [address] Demetra Costa Nitrite Ql (U) Negative Normal NEGATIVE [facility] Comment on above: Performed By: #### M G, RENAL, URIC #### [facility] [address] [place] [address] Dr. Demetra Costa pH (U) 7.0 [pH] Normal 5-9 [facility] Comment on above: Performed By: #### M G, RENAL, URIC #### [facility] [address] [place] [address] Dr. Demetra Costa RBC 0-2 Normal 0-2 [facility] Comment on above: Performed By: #### M G, RENAL, URIC #### [facility] [address] [place] [address] Dr. Demetra Costa SPEC GRAVITY 1.010 Normal 1.005-<=1.025 [facility] Comment on above: Performed By: #### M G, RENAL, URIC #### [facility] [address] [place] [address] Dr. Demetra Costa UA PROTEIN Negative Normal NEGATIVE/ TRACE [facility] Comment on above: Performed By: #### M G, RENAL, URIC #### [facility] [address] [place] [address] Dr. Demetra Costa Urobilinogen Qn (U) 0.2 {Favio'U}/dL Normal 0.2 - 1. 0 [facility] Comment on above: Performed By: #### M G, RENAL, URIC #### [facility] [address] [address] [address] Demetra Costa WBC NONE SEEN Normal NONE SEEN [facility] Comment on above: Performed By: #### M G, RENAL, URIC #### [facility] [address] [place] [address] Dr. Demetra Costa URIC ACID SERUMon 09-19-2021 Urate [Mass/Vol] 3.4 mg/dL Normal 2.6-6.0 [facility] Comment on above: Performed By: #### U PARESH, CMP #### [facility] [address] [place] [address] Dr. Demetra Costa URINE T PROTEIN CREAT RATIOo n 09-19-2021 Protein (U) [Mass/Vol] 22.8 mg/dL Critically high <=12.0 [facility] Comment on above: Performed By: #### U PARESH, CMP #### [facility] [address] [place] [address] Dr. Demetra Costa UR PROT CREAT RAT 1.18 Normal [facility] Comment on above: Performed By: #### U PARESH, CMP #### [facility] [address] [place] [address] Dr. Demetra Costa URINE CREAT 19.38 mg/dL Critically low 20.00-300.00 [facility] Comment on above: Performed By: #### U PARESH, CMP #### [facility] [address] [place] [address] Dr. Demetra Costa PTH INTACTon 09-17-2021 PTH, Intact 49 pg/mL Normal 15-65 [facility] Comment on above: Performed By: #### M G, RENAL, URIC #### [facility] [address] [place] [address] Dr. Demetra Costa HEMOGRAM AND PLATELon 2021 Hematocrit (Bld) [Volume fraction] 40.3 % Normal 36.0-48.0 [facility] Comment on above: Performed By: #### M G, RENAL, URIC #### [facility] [address] [place] [address] Dr. Demetra Costa Hemoglobin (Bld) [Mass/Vol] 13.2 g/dL Normal 12.0-16.0 [facility] Comment on above: Performed By: #### M G, RENAL, URIC #### [facility] [address] [place] [address] Dr. Demetra Costa MCH (RBC) [Entitic mass] 33.2 pg Normal 26.7-34.0 [facility] Comment on above: Performed By: #### M G, RENAL, URIC #### [facility] [address] [place] [address] Dr. Demetra Costa MCHC (RBC) [Mass/Vol] 32.8 g/dL Normal 29.9-35.2 [facility] Comment on above: Performed By: #### M G, RENAL, URIC #### [facility] [address] [place] [address] Dr. Demetra Costa MCV (RBC) [Entitic vol] 101.3 fL Critically high 81.0-99.0 [facility] Comment on above: Performed By: #### M G, RENAL, URIC #### [facility] [address] [place] [address] Dr. Demetra Costa PLT 279 103/ul Normal 150-450 [facility] Comment on above: Performed By: #### M G, RENAL, URIC #### [facility] [address] [place] [address] Dr. Demetra Costa RBC 3.98 106/ul Critically low 4.20-5.40 [facility] Comment on above: Performed By: #### M G, RENAL, URIC #### [facility] [address] [place] [address] Dr. Demetra Costa WBC 12.5 103/ul Critically high 4.0-11.0 [facility] Comment on above: Performed By: #### M G, RENAL, URIC #### [facility] [address] [place] [address] Dr. Demetra Costa MAGNESIUMon 09-16-2021 Magnesium [Mass/Vol] 1.9 mg/dL Normal 1.8-2.4 [facility] Comment on above: Performed By: #### U PARESH, CMP #### [facility] [address] [address] [address] Demetra Costa PROF CHEM 8 (BAS METB)on Anion gap [Moles/Vol] 13.3 mmol/L Normal [facility] Comment on above: Performed By: #### M G, RENAL, URIC #### [facility] [address] [place] [address] Dr. Demetra Costa Calcium [Mass/Vol] 9.3 mg/dL Normal 8.5-10.1 [facility] Comment on above: Performed By: #### M G, RENAL, URIC #### [facility] [address] [address] [address] Demetra Costa Performed By: #### U PARESH, CMP #### [facility] [address] [place] [address] Dr. Demetra Costa Chloride [Moles/Vol] 104 mmol/L Normal 98-107 [facility] Comment on above: Performed By: #### M G, RENAL, URIC #### [facility] [address] [place] [address] Dr. Demetra Costa Performed By: #### U PARESH, CMP #### [facility] [address] [place] [address] Dr. Demetra Costa CO2 [Moles/Vol] 23.6 mmol/L Normal 21.0-32.0 [facility] Comment on above: Performed By: #### M G, RENAL, URIC #### [facility] [address] [address] [address] Demetra Costa Creatinine [Mass/Vol] 1.40 mg/dL Critically high 0.55-1.02 [facility] Comment on above: Performed By: #### M G, RENAL, URIC #### [facility] [address] [place] [address] Dr. Demetra Costa EGFR-AF MONEGASQUE 45 mL/min/1.73m2 Critically low >=60 [facility] Comment on above: Performed By: #### M G, RENAL, URIC #### [facility] [address] [place] [address] Dr. Demetra Costa Performed By: #### U PARESH, CMP #### [facility] [address] [place] [address] Dr. Demetra Costa EGFR-NON AF MONEGASQUE 37 mL/min/1.73m2 Critically low >=60 [facility] Comment on above: Performed By: #### M G, RENAL, URIC #### [facility] [address] [place] [address] Dr. Demetra Costa Performed By: #### U PARESH, CMP #### [facility] [address] [place] [address] Dr. Demetra Costa Glucose [Mass/Vol] 110 mg/dL Critically high 74-106 [facility] Comment on above: Performed By: #### M G, RENAL, URIC #### [facility] [address] [place] [address] Dr. Demetra Costa Performed By: #### U PARESH, CMP #### [facility] [address] [place] [address] Dr. Demetra Costa Potassium [Moles/Vol] 4.9 mmol/L Normal 3.5-5.1 [facility] Comment on above: Performed By: #### M G, RENAL, URIC #### [facility] [address] [place] [address] Dr. Demetra Costa Performed By: #### U PARESH, CMP #### [facility] [address] [place] [address] Dr. Demetra Costa Sodium [Moles/Vol] 136 mmol/L Normal 136-145 [facility] Comment on above: Performed By: #### M G, RENAL, URIC #### [facility] [address] [place] [address] Dr. Demetra Costa Urea nitrogen [Mass/Vol] 38.0 mg/dL Critically high 7.0-18.0 [facility] Comment on above: Performed By: #### M G, RENAL, URIC #### [facility] [address] [place] [address] Dr. Demetra Costa Performed By: #### U PARESH, CMP #### [facility] [address] [address] [address] Demetra Costa Urea nitrogen/Creatinine [Mass ratio] 27.1 mg/mg Normal [facility] Comment on above: Performed By: #### M G, RENAL, URIC #### [facility] [address] [place] [address] Dr. Demetra Costa RENAL FUNCTION PANELon 09-16 Albumin [Mass/Vol] 3.2 g/dL Critically low 3.4-5.0 [facility] Comment on above: Performed By: #### U PARESH, CMP #### [facility] [address] [place] [address] Dr. Demetra Costa CO2 [Moles/Vol] 23.4 mmol/L Normal 21.0-32.0 [facility] Comment on above: Performed By: #### U PARESH, CMP #### [facility] [address] [place] [address] Dr. Demetra Costa Creatinine [Mass/Vol] 1.39 mg/dL Critically high 0.55-1.02 [facility] Comment on above: Performed By: #### U PARESH, CMP #### [facility] [address] [place] [address] Dr. Demetra Costa Phosphate [Mass/Vol] 3.8 mg/dL Normal 2.6-4.7 [facility] Comment on above: Performed By: #### U PARESH, CMP #### [facility] [address] [place] [address] Dr. Demetra Costa Sodium [Moles/Vol] 137 mmol/L Normal 136-145 [facility] Comment on above: Performed By: #### U PARESH, CMP #### [facility] [address] [place] [address] Dr. Demetra Costa URIC ACID SERUMon 09-16-2021 Urate [Mass/Vol] 4.0 mg/dL Normal 2.6-6.0 [facility] Comment on above: Performed By: #### U PARESH, CMP #### [facility] [address] [place] [address] Dr. Demetra Costa VITAMIN D 25 OHon 06-27-2022 VIT D 25-OH 38.1 ng/mL Normal [facility] Comment on above: Performed By: #### U PARESH, CMP #### [facility] [address] [place], [place] [address] Dr. Demetra Costa VIT D RANGES SEE BELOW Normal [facility] Comment on above: Result Comment: <20 ng/mL Vit D deficient 20 - <30 ng/mL Vit D insufficient 30 - 100 ng/mL Vit D sufficient >100 ng/mL Potential Toxicity Performed By: #### U PARESH, CMP #### [facility] [address] [place], [place] [address] Dr. Demetra Costa MRI LSPINE WO CONon 08-17-19 MRI LSPINE WO CON EXAMINATION: MRI LSPINE WO CON HISTORY: Lumbar radiculopathy , chronic lumbar pain radiating into right leg, no known injury COMPARISON: CT lumbar spine 04/27/2021 TECHNIQUE: A variety of imaging planes and parameters were utilized for visualization of suspected pathology. FINDINGS: For the purposes of numbering, sagittal T2 image # 7 extends from the T11 vertebral body superiorly to the S4 level inferiorly. PARASPINAL AREA: Normal with no visible mass. BONES: No fracture, pars defect, or osseous lesion. CORD/CAUDA EQUINA: Normal caliber, contour, and signal intensity. DISC LEVELS: 12-L1: Early degenerative disc disease is present without focal protrusion or neural impingement. L1-L2: Early degenerative disc disease is present without focal protrusion or neural impingement. L2-L3: Mild central canal and bilateral foramen narrowing. Mild diffuse disc bulging without disc height reduction. Mild degenerative facet arthropathy, right greater than left. L3-L4: Marked central canal and right foramen narrowing. Moderate left foramen narrowing. Mild diffuse disc bulging without disc height reduction. Marked degenerative facet arthropathy and ligamentum flavum thickening, right greater than left. L4-L5: Marked central canal and bilateral mild/moderate foramen narrowing. Mild diffuse disc bulging without disc height reduction. Marked degenerative facet arthropathy bilaterally. L5-S1: No significant central canal narrowing. Mild/moderate foramen narrowing bilaterally. Mild diffuse disc bulging without disc at reduction. Moderate degenerative facet arthropathy, right greater than left. IMPRESSION: 1. 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 Only mild degenerative disc disease. 2. Additional levels demonstrating mild to moderate narrowing. Electronically authenticated by: TERESA AZUL Date: 2021-08-16 15:[address] [facility] MG MAMM DX 3D RT CADon 07-23 MG MAMM DX 3D RT CAD Patient: SD REHMAN Exam Date: 07/23/2021 : 1950 Gender:F Ordering : DR OLIVIA FATIMA Admission #: [id number] Family : Order #: [id number] CLICK HERE TO VIEW EXAM RADIOLOGY REPORT PROCEDURE: MAMMOGRAM DIAGNOSTIC 3D RIGHT CAD COMPARISON: MAMMO POST BIOPSY RIGHT, 11/19/2020. MG MAMM SCREEN 3D LAKESHIA CAD, 10/23/2020. INDICATIONS: Abnormal findings on diagnostic imaging of breast Calculator Name NCI Breast Cancer Risk Assessment Tool 5 Year Breast Cancer Risk 2.10% Lifetime Breast Cancer Risk 6.00% Personal Breast Cancer No Personal Ovarian Cancer No Treatments None Family Cancers Father with lung cancer at age 60. LOCATION: [facility] BREAST COMPOSITION: Heterogeneously dense,which may obscure small masses. FINDINGS: DIAGNOSTIC CATEGORY 2--BENIGN FINDING: RIGHT BREAST: No significant suspicious finding. Stable biopsy marker clip within the upper-outer quadrant. No significant change has occurred. RECOMMENDATIONS: ROUTINE MAMMOGRAM AND CLINICAL EVALUATION IN 12 MONTHS. PLEASE NOTE: A NORMAL MAMMOGRAM DOES NOT EXCLUDE THE POSSIBILITY OF BREAST CANCER. A CLINICALLY SUSPICIOUS PALPABLE LUMP SHOULD BE BIOPSIED. Dictated by: Teresa Azul M.D. on 07/23/2021 at 15:01 Approved by: Teresa Azul M.D. on 07/23/2021 at 15:[address] [facility] URIC ACIDon 10-14-2019 Urate [Mass/Vol] 5.3 mg/dL Normal 2.5-7.0 [facility] Comment on above: Result Comment: Ther apeutic target for gout patients: <6.0 mg/dL Performed By: #### 9 05 #### [facility]-[address], [address] [place] [id number] Income Tax Analyst: Malik Ruiz MD URIC ACIDon 09-23-2019 Urate [Mass/Vol] 5.8 mg/dL Normal 2.5-7.0 [facility] Comment on above: Result Comment: Ther apeutic target for gout patients: <6.0 mg/dL Performed By: #### 9 05 #### [facility]-[address], [address] [place] [address] Income Tax Analyst: Malik Ruiz MD URIC ACIDon 07-29-2019 Urate [Mass/Vol] 6.7 mg/dL Normal 2.5-7.0 [facility] Comment on above: Result Comment: Ther apeutic target for gout patients: <6.0 mg/dL Performed By: #### 9 05 #### [facility], [address] [place] [address] Income Tax Analyst: Malik Ruiz MD URIC ACIDon 07-01-2019 Urate [Mass/Vol] 8.4 mg/dL High 2.5-7.0 [facility] Comment on above: Result Comment: Ther apeutic target for gout patients: <6.0 mg/dL Performed By: #### 9 05 #### [facility]-[address], [address] [place] [address] Income Tax Analyst: Malik Ruiz MD Vital Signs Date Time Vital Sign Value Performing Clinician Facility 08-20-2023 10: Body height 158.75 cm [facility] 08-20-2023 10:290400 Body mass index (BMI) [Ratio] 42.1 kg/m2 [facility] 08-20-2023 10: Body temperature 98.3 [degF] [facility] 08-20-2023 10:29040 Body weight 106.19 kg [facility] 08-20-2023 10:290400 Diastolic blood pressure 86 mm[Hg] [facility] 08-20-2023 10:0400 Heart rate 87 /min [facility] 08-20-2023 10:290400 Respiratory rate 18 /min [facility] 08-20-2023 10:29-0400 SaO2% (BldA) [Mass fraction] 98 % [facility] 05-30-2024 10:29-0400 Systolic blood pressure 157 mm[Hg] [facility] 07-16-2023 13:48-0400 Body height 157.5 cm Vita Joshi APRN-TAB CUTTER Work Phone: [facility] 07-16-2023 13:48-0400 Body mass index (BMI) [Ratio] 42.07 kg/m2 Vita Joshi APRN-TAB CUTTER Work Phone: [employer] 07-16-2023 13:48-0400 Body weight 104.33 kg Vita Madelynag MCLAUGHLINN-TAB CUTTER Work Phone: [employer] 12-16-2022 15:00-0400 Body height 158.75 cm Odell Karen Other [facility] Other 12-16-2022 15:00-0400 Body mass index (BMI) [Ratio] 42.83 kg/m2 Odell Karen Other [facility] Other 12-16-2022 15:00-0400 Body weight 107.96 kg Odell Karen Other [facility] Other 12-16-2022 15:00-0400 Diastolic blood pressure 74 mm[Hg] Odell Karen Other [facility] Other 12-16-2022 15:00-0400 Respiratory rate 18 /min Odell Karen Other [facility] Other 12-16-2022 15:00-0400 SaO2% (BldA) [Mass fraction] 98 % Odell Karen Other [facility] Other 12-16-2022 15:00-0400 Systolic blood pressure 124 mm[Hg] Odell Karen Other [facility] Other 09-03-2022 13:40-0400 Body height 158.8 cm Vita Joshi ELECTRO OPTICAL ENGINEER-TAB CUTTER Work Phone: [facility] 09-03-2022 13:40-0400 Body mass index (BMI) [Ratio] 41.4 kg/m2 Vita Joshi ELECTRO OPTICAL ENGINEER-TAB CUTTER Work Phone: [facility] 09-03-2022 13:40-0400 Body temperature 96.91 [degF] Vita Joshi ELECTRO OPTICAL ENGINEER-TAB CUTTER Work Phone: [facility] 09-03-2022 13:40-0400 Body weight 104.33 kg Vita Joshi ELECTRO OPTICAL ENGINEER-TAB CUTTER Work Phone: [facility] 07-30-2022 13:47-0400 Body height 157.5 cm Vita Joshi ELECTRO OPTICAL ENGINEER-TAB CUTTER Work Phone: [facility] 07-30-2022 13:47-0400 Body mass index (BMI) [Ratio] 41.15 kg/m2 Vita Joshi ELECTRO OPTICAL ENGINEER-TAB CUTTER Work Phone: [facility] 07-30-2022 13:47-0400 Body temperature 97 [degF] Vita Joshi ELECTRO OPTICAL ENGINEER-TAB CUTTER Work Phone: [facility] 07-30-2022 13:47-0400 Body weight 102.06 kg Vita Joshi ELECTRO OPTICAL ENGINEER-TAB CUTTER Work Phone: [facility] 07-09-2022 09:20-0400 Body height 157.5 cm Vita Joshi ELECTRO OPTICAL ENGINEER-TAB CUTTER Work Phone: [facility] 07-09-2022 09:20-0400 Body mass index (BMI) [Ratio] 41.15 kg/m2 Vita Joshi ELECTRO OPTICAL ENGINEER-TAB CUTTER Work Phone: [facility] 07-09-2022 09:20-0400 Body temperature 97.3 [degF] Vita Joshi ELECTRO OPTICAL ENGINEER-TAB CUTTER Work Phone: [facility] 07-09-2022 09:20-0400 Body weight 102.06 kg Vita BHAT Work Phone: [facility] 06-25-2022 13:00-0400 Body height 157.5 cm Jerilyn Baig Work Phone: [facility] 06-25-2022 13:00-0400 Body mass index (BMI) [Ratio] 41.15 kg/m2 Jerilyn Baig Work Phone: [facility] 06-25-2022 13:00-0400 Body weight 102.06 kg Jerilyn Baig Work Phone: [facility] 06-11-2022 16:49-0400 Body temperature 97.7 [degF] Navin Clark MD Work Phone: [employer] 06-11-2022 16:49-0400 Diastolic blood pressure 63 mm[Hg] Navin Clark MD Work Phone: [facility] 06-11-2022 16:49-0400 Heart rate 68 /min Navin Clark MD Work Phone: [employer] 06-11-2022 16:49-0400 Respiratory rate 15 /min Navin Clark MD Work Phone: [employer] 06-11-2022 16:49-0400 SaO2% (BldA) [Mass fraction] 98 % Navin Clark MD Work Phone: [employer] 06-11-2022 16:49-0400 Systolic blood pressure 142 mm[Hg] Navin Clark MD Work Phone: [employer] 06-09-2022 10:43-0400 Body height 154.9 cm Navin Clark MD Work Phone: [facility] 06-09-2022 10:43-0400 Body mass index (BMI) [Ratio] 42.61 kg/m2 Navin Clark MD Work Phone: [employer] 06-09-2022 10:43-0400 Body weight 102.29 kg Navin Clark MD Work Phone: [facility] 05-02-2022 14:15-0500 Body height 157.5 cm Dennis Lomas MD Work Phone: [facility] 05-02-2022 14:15-0500 Body temperature 97.2 [degF] Dennis Lomas MD Work Phone: [facility] 05-02-2022 14:15-0500 Body weight 101.42 kg Dennis Lomas MD Work Phone: [facility] 05-02-2022 14:15-0500 Diastolic blood pressure 74 mm[Hg] Dennis Lomas MD Work Phone: [facility] 05-02-2022 14:15-0500 Heart rate 94 /min Dennis Lomas MD Work Phone: [facility] 05-02-2022 14:15-0500 Respiratory rate 16 /min Dennis Lomas MD Work Phone: [facility] 05-02-2022 14:15-0500 SaO2% (BldA) [Mass fraction] 97 % Dennis Lomas MD Work Phone: [facility] 05-02-2022 14:15-0500 Systolic blood pressure 149 mm[Hg] Dennis Lomas MD Work Phone: [facility] 02-28-2022 14:39-0500 Body height 157.5 cm Dennis Lomas MD Work Phone: [facility] 02-28-2022 14:39-0500 Body temperature 97.11 [degF] Dennis Lomas MD Work Phone: [facility] 02-28-2022 14:39-0500 Body weight 100.7 kg Dennis Lomas MD Work Phone: [facility] 02-28-2022 14:39-0500 Diastolic blood pressure 72 mm[Hg] Dennis Lomas MD Work Phone: [facility] 02-28-2022 14:39-0500 Heart rate 85 /min Dennis Lomas MD Work Phone: [facility] 02-28-2022 14:39-0500 Respiratory rate 16 /min Dennis Lomas MD Work Phone: [facility] 02-28-2022 14:39-0500 SaO2% (BldA) [Mass fraction] 96 % Dennis Lomas MD Work Phone: [facility] 02-28-2022 14:39-0500 Systolic blood pressure 147 mm[Hg] Dennis Lomas MD Work Phone: [facility] 02-19-2022 14:17-0500 Body height 157.5 cm Navin Clark MD Work Phone: [facility] 02-19-2022 14:17-0500 Body mass index (BMI) [Ratio] 41.26 kg/m2 Navin Clark MD Work Phone: [facility] 02-19-2022 14:17-0500 Body temperature 96.69 [degF] Navin Clark MD Work Phone: [facility] 02-19-2022 14:17-0500 Body weight 102.33 kg Navin Clark MD Work Phone: [facility] 01-02-2022 14:25-0400 Body height 157.5 cm Navin Clark MD Work Phone: [facility] 01-02-2022 14:25-0400 Body mass index (BMI) [Ratio] 42.07 kg/m2 Navin Clark MD Work Phone: [facility] 01-02-2022 14:25-0400 Body temperature 96.6 [degF] Navin Clark MD Work Phone: [facility] 01-02-2022 14:25-0400 Body weight 104.33 kg Navin Clark MD Work Phone: [employer] 10-24-2021 15:00-0400 Body height 158.75 cm Curtis Watkins Other [facility] Other 10-24-2021 15:00-0400 Body mass index (BMI) [Ratio] 41.39 kg/m2 Curtis Watkins Other [facility] Other 10-24-2021 15:00-0400 Body weight 104.33 kg Curtis Watkins Other [facility] Other 09-26-2021 13:20-0400 Body height 158.75 cm Odell Karen Other [facility] Other 09-26-2021 13:20-0400 Body mass index (BMI) [Ratio] 41.54 kg/m2 Odell Karen Other [facility] Other 09-26-2021 13:20-0400 Body temperature 97.6 [degF] Odell Karen Other [facility] Other 09-26-2021 13:20-0400 Body weight 104.69 kg Odell Karen Other [facility] Other 09-26-2021 13:20-0400 Diastolic blood pressure 80 mm[Hg] Odell Karen Other [facility] Other 09-26-2021 13:20-0400 Respiratory rate 18 /min Odell Karen Other [facility] Other 09-26-2021 13:20-0400 SaO2% (BldA) [Mass fraction] 97 % Odell Karen Other [facility] Other 09-26-2021 13:20-0400 Systolic blood pressure 146 mm[Hg] Odell Karen Other [facility] Other 02-21-2021 13:40-0500 Body height 158.75 cm Odell Karen Other [facility] Other 02-21-2021 13:40-0500 Body mass index (BMI) [Ratio] 43.79 kg/m2 Odell Karen Other [facility] Other 02-21-2021 13:40-0500 Body temperature 97.2 [degF] Odell Karen Other [facility] Other 02-21-2021 13:40-0500 Body weight 110.36 kg Odell Karen Other [facility] Other 02-21-2021 13:40-0500 Diastolic blood pressure 74 mm[Hg] Odell Karen Other [facility] Other 02-21-2021 13:40-0500 Respiratory rate 18 /min Odell Karen Other [facility] Other 02-21-2021 13:40-0500 SaO2% (BldA) [Mass fraction] 96 % Odell Karen Other [facility] Other 02-21-2021 13:40-0500 Systolic blood pressure 136 mm[Hg] Odell Karen Other [facility] Other 12-17-2020 12:15-0400 Body height 158.75 cm Malina Ginty Other [facility] Other 12-17-2020 12:15-0400 Body mass index (BMI) [Ratio] 43.73 kg/m2 Malina Ginty Other [facility] Other 12-17-2020 12:15-0400 Body temperature 97.3 [degF] Malina Ginty Other [facility] Other 12-17-2020 12:15-0400 Body weight 110.22 kg Malina Ginty Other [facility] Other 12-17-2020 12:15-0400 SaO2% (BldA) [Mass fraction] 95 % Malina Milynty Other [facility] Other Encounters Encounter Date Encounter Type Care Provider Facility Start: 08-24-2023 End: 08-24-[address] [facility] Start: 08-24-2023 End: 08-24-2023 ambulatory [facility] Start: 08-20-2023 End: 08-20-[address] [facility] Work Phone: Start: 08-20-2023 End: 08-20-2023 Patient encounter procedure [facility] Work Phone: Start: 07-22-2023 End: 07-22-2023 ambulatory [facility] Start: 07-16-[address] [facility] Start: 07-16-2023 End: 07-16-2023 Office outpatient visit 25 minutes Vita [facility] ELECTRO OPTICAL ENGINEER-TAB CUTTER Work Phone: [facility] Comment on above: Hx of total knee art hroplasty, right (Primary Dx) Start: 07-16-2023 End: 07-16-2023 Subsequent hospital visit by physician Vita Joshi APRN-ADONIS Work Phone: [facility] Start: 06-08-2023 [facility] Start: 12-16-2022 End: 12-16-2022 ambulatory Odell Karen Other [facility] [employer] Other Start: 12-16-2022 Office outpatient vi sit 25 minutes Odell Karen [facility] Start: 12-15-2022 End: 12-15-2022 ambulatory [facility] Start: 10-09-2022 ambulatory [facility] Start: 10-09-2022 End: 10-09-2022 Subsequent hospital visit by physician Navin Clark MD Work Phone: [facility] Start: 09-22-2022 End: 09-22-2022 ambulatory [facility] Start: 09-03-2022 ambulatory [facility] Start: 09-03-2022 End: 09-03-2022 Postop follow up visit related to original px Vita Joshi ELECTRO OPTICAL ENGINEER-TAB CUTTER Work Phone: [facility] Comment on above: Hx of total knee art hroplasty, right (Primary Dx) Start: 09-03-2022 End: 09-03-2022 Subsequent hospital visit by physician Navin Clark MD Work Phone: [facility] Start: 07-30-2022 ambulatory [facility] Start: 07-30-2022 End: 07-30-2022 Postop follow up visit related to original px Vitaliberty Joshi ELECTRO OPTICAL ENGINEER-TAB CUTTER Work Phone: [facility] Comment on above: Hx of total knee art hroplasty, right (Primary Dx) Start: 07-09-2022 End: 07-09-2022 Postop follow up visit related to original px Vita Madelyn ELECTRO OPTICAL ENGINEER-TAB CUTTER Work Phone: [facility] Comment on above: Hx of total knee art hroplasty, right (Primary Dx) Start: 06-25-2022 End: 06-25-2022 Postop follow up visit related to original px Jerilyn Reeseconstantine Work Phone: [facility] Comment on above: Hx of total knee art hroplasty, right (Primary Dx) Start: 06-09-2022 End: 06-11-2022 Evaluation and management of inpatient Navin Clark MD Work Phone: [facility] Comment on above: Benign hypertension Start: 06-09-2022 End: 06-11-2022 Patient encounter status Navin Clark MD Work Phone: [facility] Start: 05-29-2022 End: 05-30-[address] DOCTOR NAVARRETE Facility: Start: 05-28-2022 End: 05-29-2022 ambulatory ODELL JONES Facility: Start: 05-02-2022 End: 05-02-2022 ambulatory DENNIS LOMAS Facility:[facility] Start: 05-02-2022 End: 05-02-2022 Office outpatient visit 15 minutes Dennis Lomas MD Work Phone: Hematology/Oncology Comment on above: Bandemia (Primary Dx ) Start: 03-11-2022 ambulatory [facility] Start: 03-11-2022 End: 03-11-2022 Subsequent hospital visit by physician Vita BHAT Work Phone: [facility] Comment on above: Arrived Start: 03-10-2022 ambulatory [facility] Start: 02-28-2022 End: 02-28-2022 ambulatory Dennis Lomas MD Work Phone: Hematology/Oncology Comment on above: Bandemia (Primary Dx ); Chronic obstructive pulmonary disease, unspecified COPD type (HCC); Macrocytosis without anemia Start: 02-28-2022 End: 02-28-2022 Patient encounter procedure Dennis Lomas MD Work Phone: [facility] Start: 02-27-2022 End: 02-28-[address] DOMINIC CARDENAS Facility:[facility] Start: 02-25-2022 Chart abstracting Dennis espinal MD Work Phone: Hematology/Oncology Start: 02-19-2022 End: 02-19-2022 Office outpatient visit 40 minutes Navin Clark MD Work Phone: [facility] Comment on above: Pain in prosthetic j oint, sequela (Primary Dx) Start: 02-17-2022 End: 02-18-2022 ambulatory ODELL KAREN Facility:[facility] Start: 01-27-2022 End: 01-28-[address] PATRICK ODOM Facility:[facility] Start: 01-02-2022 End: 01-02-2022 Office outpatient new 30 minutes Navin Clark MD Work Phone: [facility] Comment on above: Pain in prosthetic j oint, sequela (Primary Dx) Start: 01-02-2022 End: 01-02-2022 Subsequent hospital visit by physician Navin Clark MD Work Phone: [facility] Start: 12-14-2021 End: 12-14-2021 Emergency department patient visit Jignesh Ronan PerezNeri Facility:[facility] Start: 12-14-2021 End: 12-15-2021 ambulatory [facility] Facility:[facility] Start: 12-06-2021 Encounter for preprocedural laboratory examination DR ZINA CRAWFORD [facility] Start: 12-03-2021 End: 12-03-[address] ZINA CRAWFORD Facility:[facility] Start: 11-30-2021 End: 12-01-[address] ZINA CRAWFORD Facility:[facility] Start: 11-30-2021 End: 12-01-2021 Encounter for preprocedural laboratory examination DR ZINA CRAWFORD Facility:[facility] Start: 11-26-2021 End: 11-26-2021 ambulatory Odell Karen Other [facility] Other Start: 11-26-2021 Telephone encounter Odell Karen [facility] Ne[facility] Start: 11-21-2021 End: 11-21-[address] IRWIN JACQUES . Facility:[facility] Start: 11-04-2021 End: 11-05-[address] PATRICK ODOM Facility:[facility] Start: 11-01-2021 End: 11-02-2021 ambulatory MOHAMUD SUSI . Facility:[facility] Start: 10-24-2021 End: 10-24-2021 ambulatory Curtis Watkins Other [facility] [employer] Other Start: 10-24-2021 Office outpatient ne w 30 minutes Curtis Watkins [facility] Start: 10-03-2021 End: 12-23-2021 ambulatory CHRIS MOLINA Facility:[facility] Start: 10-02-2021 End: 10-24-[address] DOCTOR NAVARRETE Facility:[facility] Start: 09-27-2021 End: 09-27-2021 ambulatory MOHAMUD SUSI . Facility:[facility] Start: 09-26-2021 End: 09-27-2021 ambulatory ODELL KAERN [facility] Relationship Science Other Start: 09-26-2021 Office outpatient vi sit 25 minutes Odell Karen [facility] [place] Start: 09-19-2021 End: 09-19-2021 ambulatory ODELL KAREN Facility:[facility]1 Start: 09-19-2021 End: 09-20-2021 ambulatory CHRIS MOLINA Facility:[facility]1 Start: 09-16-2021 End: 09-17-2021 ambulatory ODELL KAREN Facility:[facility]1 Start: 09-13-2021 End: 09-14-[address] PATRICK ODOM Facility:[facility] Start: 08-30-2021 End: 08-30-2021 ambulatory MOHAMUD SUSI . Facility:[facility]1 Start: 08-16-2021 End: 08-17-2021 ambulatory CHRIS JESSE Facility:[facility]1 Start: 08-16-2021 End: 08-17-2021 ambulatory MOHAMUD SUSI . Facility:[facility]1 Start: 07-23-2021 End: 07-24-[address] OLIVIA FATIMA Facility:[facility]1 Start: 02-21-2021 End: 02-21-2021 ambulatory Odell Karen Other [place] Other Start: 02-21-2021 Office outpatient vi sit 25 minutes Odell Karen [facility] [place] Start: 12-17-2020 Office outpatient vi sit 15 minutes Malina Ginty [facility] [place] Start: 10-21-2016 End: 10-22-2016 Ambulatory DEFAULT PHYSICIAN Facility:[facility] Procedures Date Procedure Procedure Detail Performing Clinician Start: 12-31-2022 Adult depression scr eening assessment Nati Hammad [employer] Start: 06-11-2022 Complete blood count with white cell differential, automated Jerilyn Baig Work Phone: Start: 06-11-2022 Renal function panel Jannet Henderson MD Work Phone: Start: 06-10-2022 Sars-cov-2 detection by dna/rna Vita Joshi APRN-ADONIS Work Phone: Start: 06-10-2022 Renal function panel Jannet Henderson MD Work Phone: Start: 06-09-2022 Radiologic examinati on knee 1/2 views Jerilyn Baig Work Phone: Start: 06-09-2022 Cell count misc body fluids w/differential count Navin Clark MD Work Phone: Start: 06-09-2022 Cul bact norah aerobi c isol xcpt ur blood/stool Navin Clark MD Work Phone: Start: 06-09-2022 End: 06-09-2022 Revj tot knee arthrp fem&entire tibial compone Navin Clark MD Work Phone: Start: 06-09-2022 Blood group typing, RH phenotyping Roland Moe DO Work Phone: Start: 06-09-2022 Cultyp nuc acid amp prb cult/isolate ea orgnism Navin Clark MD Work Phone: Start: 03-11-2022 Rp loclzj lori plnr w hole body single day imaging Vita Joshi ELECTRO OPTICAL ENGINEER-TAB CUTTER Work Phone: Start: 02-19-2022 Arthrocentesis aspir &/inj major jt/bursa w/o us Navin Clark MD Work Phone: Plan of Treatment Date Care Activity Detail Author Start: 05-02-2025 DIABETES SCREEN DIABETES SCREEN [facility] Start: 01-01-2024 Adult BMI Screening Adult BMI Screen ing [facility] Start: 01-01-2024 Depression Screening Depression Scre ening [facility] Start: 01-01-2024 Fall Risk Screening Fall Risk Screen ing [facility] Start: 01-01-2024 Tobacco Screening Tobacco Screening [facility] Start: 09-29-2023 End: 09-29-2023 Patient encounter procedure 09/29/2023 2:00 PM EDT Office Visit [facility] - [facility] [address] [place] [address] [facility] Start: 09-19-2023 Medicare Annual Well ness Visit Medicare Annual Wellness Visit [facility] Start: 06-12-2023 Potassium [Moles/vol ume] in Serum or Plasma POTASSIUM [facility] Start: 06-03-2023 End: 06-03-2023 Patient encounter procedure [facility] Start: 11-21-2022 Influenza vaccination [facility] Start: 10-09-2022 End: 10-09-2022 Patient encounter procedure [facility] Start: 09-03-2022 End: 09-03-2022 Patient encounter procedure 09/03/2022 Office Visit Vita Joyce APRN-TAB CUTTER [address] [place] [address] [facility] Start: 07-30-2022 End: 07-30-2022 Patient encounter procedure 07/30/2022 Office Visit Vita Joyce APRN-TAB CUTTER [address] [place] [address] [facility] Start: 07-25-2022 End: 09-24-2022 C reactive protein [Mass/volume] in Serum or Plasma C-REACTIVE PROTEIN (CRP) Lab Routine Bandemia Expected: 07/25/2022 (Approximate), Expires: 09/24/2022 [facility] Work Phone: Comment on above: Expected: 07/25/2022 (Approximate), Expires: 09/24/2022 Start: 07-25-2022 End: 05-02-2023 CBC W Auto Differential panel - Blood CBC + DIFF Lab Routine Bandemia Expected: 07/25/2022 (Approximate), Expires: 05/02/2023 [facility] Work Phone: Comment on above: Expected: 07/25/2022 (Approximate), Expires: 05/02/2023 Start: 07-25-2022 End: 05-02-2023 Comprehensive metabolic 2000 panel - Serum or Plasma COMP METABOLIC PANEL Lab Routine Bandemia Expected: 07/25/2022 (Approximate), Expires: 05/02/2023 [facility] Work Phone: Comment on above: Expected: 07/25/2022 (Approximate), Expires: 05/02/2023 Start: 07-25-2022 End: 09-24-2022 Erythrocyte sedimentation rate SED RATE WESTERGREN Lab Routine Bandemia Expected: 07/25/2022 (Approximate), Expires: 09/24/2022 [facility] Work Phone: Comment on above: Expected: 07/25/2022 (Approximate), Expires: 09/24/2022 Start: 07-25-2022 End: 05-02-2023 Lactate dehydrogenase [Enzymatic activity/volume] in Serum or Plasma LD LACTATE DEHYDRO Lab Routine Bandemia Expected: 07/25/2022 (Approximate), Expires: 05/02/2023 [facility] Work Phone: Comment on above: Expected: 07/25/2022 (Approximate), Expires: 05/02/2023 Start: 07-25-2022 End: 09-24-2022 Urate [Mass/volume] in Serum or Plasma URIC ACID BLOOD Lab Routine Bandemia Expected: 07/25/2022 (Approximate), Expires: 09/24/2022 [facility] Work Phone: Comment on above: Expected: 07/25/2022 (Approximate), Expires: 09/24/2022 Start: 07-09-2022 End: 07-09-2022 Patient encounter procedure 07/09/2022 Office Visit Orthopaedics Vita Joshi, ELECTRO OPTICAL ENGINEER-TAB CUTTER [address] [facility] [place] [address] [facility] Start: 06-25-2022 End: 06-25-2022 Patient encounter procedure 06/25/2022 Office Visit Orthopaedics Jerilyn Baig [address] [facility] [place] [address] [facility] Start: 05-15-2022 End: 05-15-2022 ambulatory 05/15/2022 Pre-Operative Nurse Assessment Internal Medicine [facility] Pre [facility]mission Start: 05-01-2022 End: 07-01-2022 C reactive protein [Mass/volume] in Serum or Plasma C-REACTIVE PROTEIN (CRP) Lab Routine Macrocytosis without anemia Expected: 05/01/2022 (Approximate), Expires: 07/01/2022 [facility] Work Phone: Comment on above: Expected: 05/01/2022 (Approximate), Expires: 07/01/2022 Start: 05-01-2022 End: 02-28-2023 CBC W Auto Differential panel - Blood CBC + DIFF Lab Routine Macrocytosis without anemia Expected: 05/01/2022 (Approximate), Expires: 02/28/2023 [facility] Work Phone: Comment on above: Expected: 05/01/2022 (Approximate), Expires: 02/28/2023 Start: 05-01-2022 End: 02-28-2023 Cobalamin (Vitamin B12) [Mass/volume] in Serum or Plasma VITAMIN B12 BLOOD Lab Routine Macrocytosis without anemia Expected: 05/01/2022 (Approximate), Expires: 02/28/2023 [facility] Work Phone: Comment on above: Expected: 05/01/2022 (Approximate), Expires: 02/28/2023 Start: 05-01-2022 End: 02-28-2023 Comprehensive metabolic 2000 panel - Serum or Plasma COMP METABOLIC PANEL Lab Routine Macrocytosis without anemia Expected: 05/01/2022 (Approximate), Expires: 02/28/2023 [facility] Work Phone: Comment on above: Expected: 05/01/2022 (Approximate), Expires: 02/28/2023 Start: 05-01-2022 End: 07-01-2022 Erythrocyte sedimentation rate SED RATE WESTERGREN Lab Routine Macrocytosis without anemia Expected: 05/01/2022 (Approximate), Expires: 07/01/2022 [facility] Work Phone: Comment on above: Expected: 05/01/2022 (Approximate), Expires: 07/01/2022 Start: 05-01-2022 End: 02-28-2023 Ferritin [Mass/volume] in Serum or Plasma FERRITIN BLD Lab Routine Macrocytosis without anemia Expected: 05/01/2022 (Approximate), Expires: 02/28/2023 [facility] Work Phone: Comment on above: Expected: 05/01/2022 (Approximate), Expires: 02/28/2023 Start: 05-01-2022 End: 02-28-2023 Folate [Mass/volume] in Serum or Plasma FOLATE SERUM Lab Routine Macrocytosis without anemia Expected: 05/01/2022 (Approximate), Expires: 02/28/2023 [facility] Work Phone: Comment on above: Expected: 05/01/2022 (Approximate), Expires: 02/28/2023 Start: 05-01-2022 End: 02-28-2023 Iron and Iron binding capacity panel - Serum or Plasma IRON + TIBC Lab Routine Macrocytosis without anemia Expected: 05/01/2022 (Approximate), Expires: 02/28/2023 [facility] Work Phone: Comment on above: Expected: 05/01/2022 (Approximate), Expires: 02/28/2023 Start: 05-01-2022 End: 07-01-2022 Lactate dehydrogenase [Enzymatic activity/volume] in Serum or Plasma LD LACTATE DEHYDRO Lab Routine Macrocytosis without anemia Expected: 05/01/2022 (Approximate), Expires: 07/01/2022 [facility] Work Phone: Comment on above: Expected: 05/01/2022 (Approximate), Expires: 07/01/2022 Start: 03-23-2022 ADVANCE DIRECTIVE DISCUSSION ADVANCE DIRECTIVE DISCUSSION [facility] Start: 03-23-2022 DEPRESSION ASSESSMENT DEPRESSION ASS ESSMENT [facility] Start: 02-19-2022 End: 02-19-2022 Patient encounter procedure 02/19/2022 Office Visit Orthopaedics Navin Clark MD [address] [id number] [facility] Start: 11-21-2021 Influenza vaccination [facility] Start: 03-23-2021 ADVANCE DIRECTIVE DISCUSSION ADVANCE DIRECTIVE DISCUSSION [facility] Start: 03-23-2021 DEPRESSION ASSESSMENT DEPRESSION ASS ESSMENT [facility] Start: 03-13-2021 COVID-19 VACCINE (5 - Booster for Moderna series) COVID-19 VACCINE (5 - Booster for Moderna series) [facility] Start: 03-24-2019 DTaP,Tdap and Td Vaccines (2 - Td or Tdap) DTaP,Tdap and Td Vaccines (2 - Td or Tdap) [facility] Start: 03-24-2019 Tetanus vaccination TETANUS [facility] Start: 10-17-2017 Pneumococcal vaccination PNEUM OCOCCAL VACCINE SERIES (2 - PPSV23 if available, else PCV20) [facility] Start: 06-27-2016 BONE DENSITY BONE DENSITY [facility] Start: 06-27-2016 PNEUMOCOCCAL: 65+ (1 - PCV) PNEUMOCOCCAL: 65+ (1 - PCV) [facility] Start: 06-27-2001 Administration of varicella zoster vaccine Zoster (Shingles) Vaccine (1 of 2) [facility] Start: 06-27-2001 Influenza vaccination LUNG CANCER [facility] Start: 06-27-2001 SHINGRIX VACCINE (1 of 2) SHINGRIX VACCINE (1 of 2) [facility] Start: 06-27-2001 Zoster vaccine hzv l chris for subcutaneous use ZOSTER (SHINGLES) VACCINE (1 of 2) [facility] Start: 06-27-1996 COLOGUARD (FIT-DNA) COLOGUARD (FIT-D NA) [facility] Start: 06-27-1996 Colonoscopy COLONOSCOPY [facility] Start: 06-27-1996 COLORECTAL CANCER SCREENING COLORECTAL CANCER SCREENING [facility] Start: 06-27-[address] COLONOGRAPHY [facility] Start: 06-27-1996 DIABETES SCREEN DIABETES SCREEN [facility] Start: 06-27-1996 FECAL OCCULT BLOOD FECAL OCCULT BLOO D [facility] Start: 06-27-1996 LIPID SCREEN LIPID SCREEN [facility] Start: 06-27-1996 Screening for malign ant neoplasm of colon COLORECTAL CANCER SCREENING DISCUSSION [facility] Start: 06-27-1996 SIGMOIDOSCOPY SIGMOIDOSCOPY [facility] Start: 1991 Lipid panel LIPID SCREENING [facility] Start: 1991 Mammography MAMMOGRAM [facility] Start: 1991 Screening for malign ant neoplasm of breast MAMMOGRAM SCREENING DISCUSSION [facility] Start: 06-27-1972 Screening for malign ant neoplasm of cervix CERVICAL CANCER SCREENING DISCUSSION [facility] Start: 06-27-1970 Urine microalbumin profile DTAP,TDAP,TD (1 - Tdap) [facility] Start: 06-27-1969 Adult BMI Follow Up Plan Adult BMI Follow Up Plan [facility] Start: 06-27-1969 HEPATITIS C SCREENING HEPATITIS C [facility] Start: 06-27-1957 Pneumococcal vaccination PNEUM OCOCCAL VACCINE SERIES (1 - PCV) [facility] Start: 1950 COVID-19 VACCINE (#1) COVID-19 VACCI NE (#1) [facility] Start: 1950 Hepatitis B vaccination HEP B VACCINE (1 of 3 - 3-dose series) [facility] Start: 1950 Hepatitis C screening HEPATITI S C VIRUS SCREENING [facility] Start: 1950 Potassium [Moles/vol ume] in Serum or Plasma POTASSIUM [facility] Start: 1950 Screening for osteoporosis DEXA SCAN DISCUSSION [facility] ANAEROBE CULTURE ANAEROBE CULTUR E Microbiology Routine Other mechanical complication of internal right knee prosthesis, initial encounter Release Upon Ordering for 1 Occurrences starting 06/09/2022 [facility] Comment on above: Release Upon Orderin g for 1 Occurrences starting 06/09/2022 ANAEROBE CULTURE ANAEROBE CULTUR E Microbiology Routine 06/09/2022 2:10 PM EDT [facility] Bacteria identified in Body fluid by Culture BODY FLUID CULTURE AND DIRECT SMEAR [facility] in Unspecified specimen by Culture BACTERIAL CULTURE AND DIRECT SMEAR, LESION, TISSUE, DEVICE Microbiology Routine Other mechanical complication of internal right knee prosthesis, initial encounter Release Upon Ordering for 1 Occurrences starting 06/09/2022 [facility] Comment on above: Release Upon Orderin g for 1 Occurrences starting 06/09/2022 Fungus identified in Unspecified specimen by Culture FUNGUS CULTURE Microbiology Routine Other mechanical complication of internal right knee prosthesis, initial encounter Release Upon Ordering for 1 Occurrences starting 06/09/2022 [facility] Comment on above: Release Upon Orderin g for 1 Occurrences starting 06/09/2022 Fungus identified in Unspecified specimen by Culture FUNGUS CULTURE Microbiology Routine 06/09/2022 2:10 PM EDT [facility] Mycobacterium sp identified in Unspecified specimen by Organism specific culture ACID FAST CULTURE Microbiology Routine Other mechanical complication of internal right knee prosthesis, initial encounter Release Upon Ordering for 1 Occurrences starting 06/09/2022 [facility] Comment on above: Release Upon Orderin g for 1 Occurrences starting 06/09/2022 Mycobacterium sp identified in Unspecified specimen by Organism specific culture ACID FAST CULTURE Microbiology Routine 06/09/2022 2:10 PM EDT [facility] Radiography for bone length studies XR BONE LENGTH STUDY Imaging Routine Pain in prosthetic joint, sequela 01/02/2022 2:10 PM EDT [facility] Radiography for bone length studies XR BONE LENGTH STUDY Imaging Routine Hx of total knee arthroplasty, right 10/09/2022 1:20 PM EDT [facility] Work Phone: Renal function 2000 panel - Serum or Plasma [facility] TISSUE CULTURE TISSUE CULTURE Microbiology Routine 06/09/2022 2:10 PM EDT [employer] XR Knee - right 2 Views XR KNEE RIGHT 2 VIEWS Imaging Routine Pain in prosthetic joint, sequela 02/19/2022 2:12 PM EST [employer] XR Knee - right 2 Views XR KNEE RIGHT 2 VIEWS Imaging Routine Hx of total knee arthroplasty, right 06/25/2022 12:41 PM EDT [employer] [facility] XR Knee - right 2 Views XR KNEE RIGHT 2 VIEWS Imaging Routine Hx of total knee arthroplasty, right 07/09/2022 9:14 AM EDT [employer] XR Knee - right 2 Views XR KNEE RIGHT 2 VIEWS Imaging Routine Hx of total knee arthroplasty, right 07/30/2022 1:35 PM EDT [employer] XR Knee - right 3 Views XR KNEE RIGHT 3 VIEWS Imaging Routine Pain in prosthetic joint, sequela 01/02/2022 2:10 PM EDT [employer] Work Phone: XR Knee - right 3 Views XR KNEE RIGHT 3 VIEWS Imaging Routine Hx of total knee arthroplasty, right Ordered: 06/27/2022 [employer] Comment on above: Ordered: 06/27/2022 XR Knee - right 3 Views XR KNEE RIGHT 3 VIEWS Imaging Routine Hx of total knee arthroplasty, right 09/03/2022 1:33 PM [employer] Work Phone: XR Knee - right 3 Views XR KNEE RIGHT 3 VIEWS Imaging Routine Hx of total knee arthroplasty, right 10/09/2022 1:20 PM EDT [employer] XR Knee - right 3 Views XR KNEE RIGHT 3 VIEWS Imaging Routine Hx of total knee arthroplasty, right 07/16/2023 1:45 PM [employer] Work Phone: [facility] Immunizations Immunization Date Immunization Notes Care Provider Viry larose 02-02-2023 Influenza Vaccine, Quadrivalent, Adjuvanted Nati Cueva [facility] [employer] [facility] 11-19-2022 Pneumococcal Conjuga te 20-valent Nati Cueva [facility] Screen [employer] 11-19-2022 RSV, recombinant, protein subunit RSVpreF, adjuvant reconstituted, 0.5 mL, PF Nati [facility] 01-03-2021 Influenza, High-dose , Quadrivalent Nati [facility] 01-03-2021 influenza virus vaccine, unspecified formulation Navin Clark MD Work Phone: [facility] 06-21-2020 COVID-19, mRNA, LNP- S, PF, 100mcg/0.5mL Dose Nati [facility] 05-22-2020 COVID-19, mRNA, LNP- S, PF, 100mcg/0.5mL Dose Nati [facility] 01-25-2020 Influenza Vaccine, Quadrivalent, Adjuvanted Nati [facility] 03-24-2009 tetanus toxoid, redu eloisa diphtheria toxoid, and acellular pertussis vaccine, adsorbed Nati [facility] Payers Date Payer Category Payer Medicare [id number] 2015 Unknown 1959 Unknown [id number] 1951 Unknown [id number] 2.16.84 0.1.144476.3.579.2.718 1951 Unknown [id number] 2.16.84 0.1.244170.3.579.2.718 1951 Unknown [id number] 2.16.8 40.1.444312.3.579.2.983 1951 Unknown [id number] 2.16.8 40.1.160423.3.579.2.983 1951 Unknown [id number] 2.16.8 40.1.588012.3.579.2.983 1951 Unknown [id number] 2.16.84 0.1.700803.3.579.2.593 1951 Unknown [id number] 2.16.84 0.1.003238.3.579.2.593 1951 Unknown [id number] 2.16.84 0.1.780321.3.579.2.593 1951 Unknown [id number] 2.16.84 0.1.359789.3.579.2.593 1951 Unknown [id number] 2.16.84 0.1.784312.3.579.2.593 1951 Unknown [id number] 2.16.84 0.1.000346.3.579.2.593 1951 Unknown [id number] 2.16.84 0.1.211972.3.579.2.593 1951 Unknown [id number] 2.16.84 0.1.843196.3.579.2.593 1951 Unknown [id number] 2.16.84 0.1.105077.3.579.2.593 1951 Unknown [id number] 2.16.84 0.1.553858.3.579.2.593 1951 Unknown [id number] 2.16.84 0.1.214607.3.579.2.593 1951 Unknown [id number] 2.16.84 0.1.223984.3.579.2.593 1951 Unknown [id number] 2.16.84 0.1.675395.3.579.2.593 1951 Unknown [id number] 2.16.84 0.1.952711.3.579.2.593 1951 Unknown [id number] 2.16.84 0.1.890247.3.579.2.593 1951 Unknown [id number] 2.16.84 0.1.749232.3.579.2.593 1951 Unknown [id number] 2.16.84 0.1.449651.3.579.2.593 1951 Unknown [id number] 2.16.84 0.1.931772.3.579.2.593 1951 Unknown [id number] 2.16.84 0.1.390218.3.579.2.593 1951 Unknown [id number] 2.16.84 0.1.396662.3.579.2.593 1951 Unknown [id number] 2.16.84 0.1.642056.3.579.2.593 1951 Unknown [id number] 2.16.84 0.1.817144.3.579.2.593 1951 Unknown [id number] 2.16.84 0.1.953157.3.579.2.593 1951 Unknown [id number] 2.16.84 0.1.774284.3.579.2.593 1951 Unknown [id number] 2.16.84 0.1.223194.3.579.2.593 1951 Unknown [id number] 2.16.8 40.1.860063.3.579.2.983 1951 Unknown [id number] 2.16.8 40.1.961370.3.579.2.983 1951 Unknown [id number] 2.16.8 40.1.470867.3.579.2.983 1951 Unknown [id number] 2.16.8 40.1.533466.3.579.2.983 1951 Unknown [id number] 2.16.8 40.1.797160.3.579.2.983 1951 Unknown [id number] 2.16.8 40.1.732898.3.579.2.983 1951 Unknown [id number] 2.16.8 40.1.525179.3.579.2.983 1951 Unknown [id number] 2.16.8 40.1.450488.3.579.2.983 1951 Unknown [id number] 2.16.8 40.1.375743.3.579.2.1286 1951 Unknown [id number] 2.16.8 40.1.701043.3.579.2.1286 Medicare [id number] 2. 16.840.1.932104.19 Self-pay Self Pay [id number] Unknown [id number] Social History Date Type Detail Facility Unknown if ever smoked [employer] Other Start: 09-03-2022 End: 07-16-[facility]23 [facility] Start: 01-02-2022 Tobacco smoking status NVIS Smokes tobacco daily [facility] End: 02-07-2022 History of tobacco use Cigarette Smoker [facility] Start: 01-02-2022 End: 07-16-2023 Tobacco use and exposure Smokeless tobacco non-user [facility] Start: 01-02-2022 End: 07-16-2023 Alcohol intake Current drinker of alcohol (finding) [facility] Start: 01-02-2022 Alcohol Comment occasional [facility] Start: 1950 Sex Assigned At Not on file [facility] Start: 02-19-2022 End: 07-16-2023 Tobacco smoking status NHIS Ex-smoker [facility] [facility] Start: 08-20-2023 End: 02-07-2022 History of tobacco use Current smoker [employer] Tobacco smoking stat us [facility] Tobacco smoking consumption unknown [facility] Start: 02-28-2022 End: 07-16-2023 Cigarettes smoked current (pack per day) - [facility] Start: 02-28-2022 End: 05-02-2022 Alcohol intake Ex-drinker (finding) [facility] Start: 05-30-2022 End: 06-09-2022 Exposure to SARS-CoV-2 (event) Not sure [facility] Start: 12-31-2022 Alcohol intake [facility] Do you belong to any clubs or organizations such as synagogue groups, unions, fraternal or athletic groups, or school groups? Yes [facility] Are you now , , , , never or living with a partner? [facility] How often to you hav e a drink containing alcohol? 2-4 times a month [facility] How many standard dr inks containing alcohol do you have on a typical day? Patient does not drink [facility] How often do you hav e 6 or more drinks on 1 occasion? Never [facility] Do you feel stress - tense, restless, nervous, or anxious, or unable to sleep at night because your mind is troubled all the time - these days [OSQ] Not at all [facility] Start: 1950 Sex Assigned At Female [facility] Medical Equipment Procedure Code Equipment Code Equipment Origin al Text Equipment Identifier Dates Attune Knee Syst em Revision Crs Rotating Platform Insert Size 3 16mm Aox [id number] Start: 06-09-2022 [employer] Par[employer] ne Cement High-Viscosity With Gentamicin - [id number] Start: 06-09-2022 Attune Knee Syst em Revision Distal Femoral Augment Size 3 4mm Cemented [id number] Start: 06-09-2022 Attune Knee Syst em Revision Distal Femoral Augment Size 3 4mm Cemented [id number] Start: 06-09-2022 Attune Knee Syst em Revision Offset Stem Adaptor 4mm [id number] Start: 06-09-2022 Moldable Demineralized Fibers [id number] Start: 06-09-2022 Comment on above: Description: ID: [id number] CODE:[id number] [employer] High-Viscosity With Gentamicin - [id number] Start: 06-09-2022 [employer]ement High-Viscosity With Gentamicin - [id number] Start: 06-09-2022 Attune Knee Syst em Revision Tibial Base Rotating Platform Size 2 Cemented [id number] Start: 06-09-2022 Attune Knee Syst em Revision Tibial Sleeve Porocoat Partially Coated 29mm [id number] Start: 06-09-2022 Attune Knee Syst em Revision Pressfit Stem 12mm X 60mm [id number] Start: 06-09-2022 Attune Knee Syst em Revision Pressfit Stem 10mm X 60mm [id number] Start: 06-09-2022 Attune Knee Syst em Revision Crs Femoral Size 3 Right Cemented [id number] Start: 06-09-2022 Attune Patella Medialized Dome 35mm Cemented Aox [id number] Start: 06-09-2022 Clinical Notes 12-17-2020 to 07-22-2023 Rebecca Lei - 07/16/2023 2:00 PM EDTChlivier Joshi APRN-ADONIS - 07/16/2023 2:00 PM EDT Note Date & Type Note Facility 07-22-2023 Note Patient here for 6 m o follow up PAF, hypertension, and hyperlipidemia. She will have labs at the end of the month for nephrology. Denies chest pain, SOB, lightheadedness/syncope, and bleeding on Eliquis. She doesn't think she's taking metoprolol. I did confirm this with the pharmacy, as she is not filling this. Review of Systems Hematologic/Lymphatic: Bruises/bleeds easily. Musculoskeletal: Positive for arthritis and joint pain. All other systems reviewed and are negative. [facility] 07-16-2023 History of Present illness Narrative Ortho Nurse - Established Patient Intake Room#: 5 Date: 07/16/2023 1:50 PM Patient: Sd Rehman MR#: [id number] : 1950 Age: 73 y.o. 1yr R TKA Pt stated she has a couple of sore spots and is about 95% back to normal, has pain at times on the side of her knee that can get to a 08/30 Referring Physician: Navin Clark MD Insurance: Payor: MEDICARE ANTHEM HMO OR PPO / Plan: MEDICARE ANTH HMO OR PPO / Product Type: *No Product type* / Chief Complaint Patient presents with Right Knee - Follow-up Visit Vitals Ht 1.575 m (5' 2 ) Wt 104.3 kg (230 lb) BMI 42.07 kg/m Pain Recent Labs Lab Results Component Value Date CRP 9.5 05/15/2022 Lab Results Component Value Date SEDRATE 98 (H) 05/15/2022 Lab Results Component Value Date WBC 17.7 (H) 06/11/2022 HGB 9.5 (L) 06/11/2022 HCT 29.0 (L) 06/11/2022 PLATELET 330 06/11/2022 MCV 95.0 06/11/2022 History Past Medical History: Diagnosis Date Arrhythmia a-fib COPD (chronic obstructive pulmonary disease) Essential hypertension, benign Hyperlipidemia GARETT (obstructive sleep apnea) Renal disease Past Surgical History: Procedure Laterality Date REVISION ARTHROPLASTY KNEE Right 06/09/2022 Laterality: Right; Surgeon: Navin Clark MD; Location: [facility] KNEE REPLACEMENT Bilateral 2006 left in 2006 -right 2008---Dr. Crain APPENDECTOMY BREAST BIOPSY Bilateral TONSILLECTOMY Family History: Her family history includes Bleeding or Clotting Problems in her daughter and mother. Social History: Her reports that she quit smoking about 17 months ago. Her smoking use included cigarettes. She has never used smokeless tobacco. She reports current alcohol use. She reports that she does not use drugs. Outpatient Medications Prior to Visit Medication Sig Dispense Refill albuterol 108 (90 Base) MCG/ACT Aero Soln inhaler albuterol sulfate HFA 90 mcg/actuation aerosol inhaler INHALE 2 PUFFS EVERY 4 HOURS NEEDED FOR SHORTNESS OF BREATH allopurinol 300 MG tablet Take 1 tablet by mouth daily. cloNIDine 0.1 MG tablet Take 1 tablet by mouth 2 times daily. colchicine 0.6 MG tablet colchicine 0.6 mg tablet TAKE 1 TABLET BY MOUTH EVERY DAY NEEDED FOR FLARE diltiazem 240 MG Cap SR 24HR Take 1 capsule by mouth 2 times daily. DULoxetine [address] Particles capsule DR Take 1 capsule by mouth daily. Ptawvwpwyfw-Zlkrsbfpf-Jqynah (Trelegy Ellipta) 100-62.5-25 MCG/INH Aerosol Powder, breath activated inhaler Inhale 1 puff daily. Folic Acid 800 MCG tablet Take by mouth daily. furOSEmide 20 MG tablet TAKE 1 TABLET BY MOUTH EVERY DAY FOR 90 DAYS Loratadine 10 MG tablet Take 1 tablet by mouth as needed. Rosuvastatin 20 MG tablet Take 1 tablet by mouth daily. am Spironolactone 25 MG tablet Take 1 tablet by mouth daily. Varenicline Tartrate, Starter, (Chantix Starting Month Froylan) 0.5 MG X 11 & 1 MG X 42 Tab Therapy Pack Take 1 mg by mouth 2 times daily. Acetaminophen 325 MG tablet Take 2 tablets by mouth every 4 hours as needed for Mild Pain. Do not exceed 4000mg of Tylenol in 24 hour period. (Patient not taking: Reported on 10/09/2022) 50 tablet 1 apixaban 5 MG tablet Take 1 tablet by mouth every 12 hours. This medication is for blood clot prevention 60 tablet 0 Docusate 100 MG capsule Take 1 capsule by mouth 2 times daily. Hold for loose stools. (Patient not taking: Reported on 09/03/2022) 60 capsule 0 ferrous sulfate 325 (65 Fe) MG tablet Take 1 tablet by mouth 2 times daily. (Patient not taking: Reported on 10/09/2022) 60 tablet 1 omeprazole [address] capsule Take 1 capsule by mouth daily. (Patient not taking: Reported on 10/09/2022) 30 capsule 0 oxyCODONE 5 MG tablet Take one to two tabs every 4-6 hours as needed for severe pain. Wean as tolerated 30 tablet 0 therapeutic multivitamin-minerals tablet Take 1 tablet by mouth at bedtime. (Patient not taking: Reported on 10/09/2022) 30 tablet 0 No facility-administered medications prior to visit. Current Outpatient Medications: albuterol 108 (90 Base) MCG/ACT Aero Soln inhaler, albuterol sulfate HFA 90 mcg/actuation aerosol inhaler INHALE 2 PUFFS EVERY 4 HOURS NEEDED FOR SHORTNESS OF BREATH, Disp: , Rfl: allopurinol 300 MG tablet, Take 1 tablet by mouth daily., Disp: , Rfl: cloNIDine 0.1 MG tablet, Take 1 tablet by mouth 2 times daily., Disp: , Rfl: colchicine 0.6 MG tablet, colchicine 0.6 mg tablet TAKE 1 TABLET BY MOUTH EVERY DAY NEEDED FOR FLARE, Disp: , Rfl: diltiazem 240 MG Cap SR 24HR, Take 1 capsule by mouth 2 times daily., Disp: , Rfl: DULoxetine [address] Particles capsule DR, Take 1 capsule by mouth daily., Disp: , Rfl: Jjypxzjxmtw-Yhiwbtvmy-Diehur (Trelegy Ellipta) 100-62.5-25 MCG/INH Aerosol Powder, breath activated inhaler, Inhale 1 puff daily., Disp: , Rfl: Folic Acid 800 MCG tablet, Take by mouth daily., Disp: , Rfl: furOSEmide 20 MG tablet, TAKE 1 TABLET BY MOUTH EVERY DAY FOR 90 DAYS, Disp: , Rfl: Loratadine 10 MG tablet, Take 1 tablet by mouth as needed., Disp: , Rfl: Rosuvastatin 20 MG tablet, Take 1 tablet by mouth daily. am, Disp: , Rfl: Spironolactone 25 MG tablet, Take 1 tablet by mouth daily., Disp: , Rfl: Varenicline Tartrate, Starter, (Chantix Starting Month Froylan) 0.5 MG X 11 & 1 MG X 42 Tab Therapy Pack, Take 1 mg by mouth 2 times daily., Disp: , Rfl: Acetaminophen 325 MG tablet, Take 2 tablets by mouth every 4 hours as needed for Mild Pain. Do not exceed 4000mg of Tylenol in 24 hour period. (Patient not taking: Reported on 10/09/2022), Disp: 50 tablet, Rfl: 1 apixaban 5 MG tablet, Take 1 tablet by mouth every 12 hours. This medication is for blood clot prevention, Disp: 60 tablet, Rfl: 0 Docusate 100 MG capsule, Take 1 capsule by mouth 2 times daily. Hold for loose stools. (Patient not taking: Reported on 09/03/2022), Disp: 60 capsule, Rfl: 0 ferrous sulfate 325 (65 Fe) MG tablet, Take 1 tablet by mouth 2 times daily. (Patient not taking: Reported on 10/09/2022), Disp: 60 tablet, Rfl: 1 omeprazole [address] capsule, Take 1 capsule by mouth daily. (Patient not taking: Reported on 10/09/2022), Disp: 30 capsule, Rfl: 0 oxyCODONE 5 MG tablet, Take one to two tabs every 4-6 hours as needed for severe pain. Wean as tolerated, Disp: 30 tablet, Rfl: 0 therapeutic multivitamin-minerals tablet, Take 1 tablet by mouth at bedtime. (Patient not taking: Reported on 10/09/2022), Disp: 30 tablet, Rfl: 0 Allergies: She has No Known Allergies. HPI: Patient is here today for evaluation of their operative knee. She is status post total knee revision arthroplasty. She is about a year out, reports that she is doing well and is pleased with the outcome of the intervention. The knee feels better now than it did before, and she is not having any new symptoms with it. PHYSICAL EXAM: The operative lower extremity is soft, nontender, full and supple motion. No pain, no impingement. No instability. She has full return of motion, 0-120 degrees, stable examination to varus and valgus stress with normal balance throughout the arc of motion. The contralateral extremity has full motion, normal stability, no tenderness. Both extremities have normal neurovascular status. Skin is otherwise intact. DIAGNOSTIC STUDIES/INTERPRETATION: Plain film radiographs reviewed. She has a Cemented revision total knee arthroplasty in good position and alignment. No evidence of prosthetic implant loosening or migration. IMPRESSION: Stable status post total knee arthroplasty, doing well. PLAN: I am pleased with the outcome of intervention. She has made an excellent recovery. I expect continued improvement in strength and mobility moving forward. I recommend followup in 2 years for repeat clinical and radiographic examination or sooner if any new symptoms develop. Tylenol may be used to manage any aches and pains as needed. She will call with any questions or concerns in the meantime. Greater than 20 minutes time was spent in review of the medical records, review of previous imaging, and more than 50% of that time was spent on face to face time with patient. Vita Joshi APRN-ADONIS I have reviewed the findings of the clinical learning support resource room teacher and agree with their assessment. Ortho Nurse - Established Patient Intake Room#: 5 Date: 07/16/2023 1:50 PM Patient: Sd Rehman MR#: [id number] : 1950 Age: 73 y.o. 1yr R TKA Pt stated she has a couple of sore spots and is about 95% back to normal, has pain at times on the side of her knee that can get to a 6/10 Referring Physician: Navin Clark MD Insurance: Payor: MEDICARE ANTHEM HMO OR PPO / Plan: MEDICARE ANTH HMO OR PPO / Product Type: *No Product type* / Chief Complaint Patient presents with Right Knee - Follow-up Visit Vitals Ht 1.575 m (5' 2 ) Wt 104.3 kg (230 lb) BMI 42.07 kg/m Pain Recent Labs Lab Results Component Value Date CRP 9.5 05/15/2022 Lab Results Component Value Date SEDRATE 98 (H) 05/15/2022 Lab Results Component Value Date WBC 17.7 (H) 06/11/2022 HGB 9.5 (L) 06/11/2022 HCT 29.0 (L) 06/11/2022 PLATELET 330 06/11/2022 MCV 95.0 06/11/2022 History Past Medical History: Diagnosis Date Arrhythmia a-fib COPD (chronic obstructive pulmonary disease) Essential hypertension, benign Hyperlipidemia GARETT (obstructive sleep apnea) Renal disease Past Surgical History: Procedure Laterality Date REVISION ARTHROPLASTY KNEE Right 06/09/2022 Laterality: Right; Surgeon: Navin Clark MD; Location: [facility] KNEE REPLACEMENT Bilateral 2006 left in 2006 -right 2008---Dr. Crain APPENDECTOMY BREAST BIOPSY Bilateral TONSILLECTOMY Family History: Her family history includes Bleeding or Clotting Problems in her daughter and mother. Social History: Her reports that she quit smoking about 17 months ago. Her smoking use included cigarettes. She has never used smokeless tobacco. She reports current alcohol use. She reports that she does not use drugs. Outpatient Medications Prior to Visit Medication Sig Dispense Refill albuterol 108 (90 Base) MCG/ACT Aero Soln inhaler albuterol sulfate HFA 90 mcg/actuation aerosol inhaler INHALE 2 PUFFS EVERY 4 HOURS NEEDED FOR SHORTNESS OF BREATH allopurinol 300 MG tablet Take 1 tablet by mouth daily. cloNIDine 0.1 MG tablet Take 1 tablet by mouth 2 times daily. colchicine 0.6 MG tablet colchicine 0.6 mg tablet TAKE 1 TABLET BY MOUTH EVERY DAY NEEDED FOR FLARE diltiazem 240 MG Cap SR 24HR Take 1 capsule by mouth 2 times daily. DULoxetine [address] Particles capsule DR Take 1 capsule by mouth daily. Xdmgxowscue-Yxdzzwgkr-Hxxfxo (Trelegy Ellipta) 100-62.5-25 MCG/INH Aerosol Powder, breath activated inhaler Inhale 1 puff daily. Folic Acid 800 MCG tablet Take by mouth daily. furOSEmide 20 MG tablet TAKE 1 TABLET BY MOUTH EVERY DAY FOR 90 DAYS Loratadine 10 MG tablet Take 1 tablet by mouth as needed. Rosuvastatin 20 MG tablet Take 1 tablet by mouth daily. am Spironolactone 25 MG tablet Take 1 tablet by mouth daily. Varenicline Tartrate, Starter, (Chantix Starting Month ) 0.5 MG X 11 & 1 MG X 42 Tab Therapy Pack Take 1 mg by mouth 2 times daily. Acetaminophen 325 MG tablet Take 2 tablets by mouth every 4 hours as needed for Mild Pain. Do not exceed 4000mg of Tylenol in 24 hour period. (Patient not taking: Reported on 10/09/2022) 50 tablet 1 apixaban 5 MG tablet Take 1 tablet by mouth every 12 hours. This medication is for blood clot prevention 60 tablet 0 Docusate 100 MG capsule Take 1 capsule by mouth 2 times daily. Hold for loose stools. (Patient not taking: Reported on 09/03/2022) 60 capsule 0 ferrous sulfate 325 (65 Fe) MG tablet Take 1 tablet by mouth 2 times daily. (Patient not taking: Reported on 10/09/2022) 60 tablet 1 omeprazole [address] capsule Take 1 capsule by mouth daily. (Patient not taking: Reported on 10/09/2022) 30 capsule 0 oxyCODONE 5 MG tablet Take one to two tabs every 4-6 hours as needed for severe pain. Wean as tolerated 30 tablet 0 therapeutic multivitamin-minerals tablet Take 1 tablet by mouth at bedtime. (Patient not taking: Reported on 10/09/2022) 30 tablet 0 No facility-administered medications prior to visit. Current Outpatient Medications: albuterol 108 (90 Base) MCG/ACT Aero Soln inhaler, albuterol sulfate HFA 90 mcg/actuation aerosol inhaler INHALE 2 PUFFS EVERY 4 HOURS NEEDED FOR SHORTNESS OF BREATH, Disp: , Rfl: allopurinol 300 MG tablet, Take 1 tablet by mouth daily., Disp: , Rfl: cloNIDine 0.1 MG tablet, Take 1 tablet by mouth 2 times daily., Disp: , Rfl: colchicine 0.6 MG tablet, colchicine 0.6 mg tablet TAKE 1 TABLET BY MOUTH EVERY DAY NEEDED FOR FLARE, Disp: , Rfl: diltiazem 240 MG Cap SR 24HR, Take 1 capsule by mouth 2 times daily., Disp: , Rfl: DULoxetine [address] Particles capsule DR, Take 1 capsule by mouth daily., Disp: , Rfl: Vdopknsqseo-Bzxmnwhhl-Fbnsfp (Trelegy Ellipta) 100-62.5-25 MCG/INH Aerosol Powder, breath activated inhaler, Inhale 1 puff daily., Disp: , Rfl: Folic Acid 800 MCG tablet, Take by mouth daily., Disp: , Rfl: furOSEmide 20 MG tablet, TAKE 1 TABLET BY MOUTH EVERY DAY FOR 90 DAYS, Disp: , Rfl: Loratadine 10 MG tablet, Take 1 tablet by mouth as needed., Disp: , Rfl: Rosuvastatin 20 MG tablet, Take 1 tablet by mouth daily. am, Disp: , Rfl: Spironolactone 25 MG tablet, Take 1 tablet by mouth daily., Disp: , Rfl: Varenicline Tartrate, Starter, (Chantix Starting Month ) 0.5 MG X 11 & 1 MG X 42 Tab Therapy Pack, Take 1 mg by mouth 2 times daily., Disp: , Rfl: Acetaminophen 325 MG tablet, Take 2 tablets by mouth every 4 hours as needed for Mild Pain. Do not exceed 4000mg of Tylenol in 24 hour period. (Patient not taking: Reported on 10/09/2022), Disp: 50 tablet, Rfl: 1 apixaban 5 MG tablet, Take 1 tablet by mouth every 12 hours. This medication is for blood clot prevention, Disp: 60 tablet, Rfl: 0 Docusate 100 MG capsule, Take 1 capsule by mouth 2 times daily. Hold for loose stools. (Patient not taking: Reported on 09/03/2022), Disp: 60 capsule, Rfl: 0 ferrous sulfate 325 (65 Fe) MG tablet, Take 1 tablet by mouth 2 times daily. (Patient not taking: Reported on 10/09/2022), Disp: 60 tablet, Rfl: 1 omeprazole [address] capsule, Take 1 capsule by mouth daily. (Patient not taking: Reported on 10/09/2022), Disp: 30 capsule, Rfl: 0 oxyCODONE 5 MG tablet, Take one to two tabs every 4-6 hours as needed for severe pain. Wean as tolerated, Disp: 30 tablet, Rfl: 0 therapeutic multivitamin-minerals tablet, Take 1 tablet by mouth at bedtime. (Patient not taking: Reported on 10/09/2022), Disp: 30 tablet, Rfl: 0 Allergies: She has No Known Allergies. 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 Her baseline serum creatinine of 1.3- 1.5 mg/dL. Renal ultrasound shows bilateral renal cyst and findings consistent with medical renal disease. She has proteinuria with no evidence of hematuria on UA. I have advised her to avoid NSAIDs. I discussed with her the importance of good HTN control to slow down the progression of disease. Nov, Secondary hyperparathyroidism (ICD-10 - N25.81) MBD parameters including PTH, Vit D, Phosphorus and Calcium are within the goal. Continue low phosphorus diet. Nov, Gout (ICD-10 - M10.9) Her uric acid within the goal. Continue current dose of the allopurinol. Nov, Proteinuria (ICD-10 - R80.9) She has a proteinuria likely due to hypertensive nephrosclerosis. Her proteinuria has increased likely due to the discontinuation of losartan. She has unremarkable w/u for paraproteinemia Nov, Iron deficiency (ICD-10 - E61.1) Hemoglobin is within the goal but has low Iron. [facility] Other 09-25-2023 NotePatient here for 2 mo follow up abnormal stress test and PAF. Denies chest pain, palpitations, SOB, and bleeding on Eliquis. She doesn't think she's taking metoprolol and she isn't sure why. 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 Review of Systems Musculoskeletal: Positive for arthritis and joint pain. All other systems reviewed and are negative.[facility] 12-15-2022 NoteCardiology Clinic Note Subjective Sd Rehman is a 72 y.o. year old female patient with paroxysmal afib, HTN, GARETT with cpap, and mild MVR, presents for follow up. She was last seen for perioperative risk stratification for a right total knee arthroplasty. At that time, stress and echo were performed. Echo demonstrated a Normal LVEF, mild diastolic dysfunction, mild biatrial dilatation , and no significant valvular dysfunction. LCST: 06/03/2022 Lexiscan nuclear study was performed No significant ECG changes noted with stress Normal left ventricular ejection fraction and wall motion on gated images. Calculated LVEF 62% No transit ischemic dilatation noted. Calculated 3 times daily 1.11. Abnormal perfusion with inferior wall defect seen on both rest and stress images which could be due to soft tissue artifact versus infarct. Overall, low risk for cardiovascular events. Patient presents today for follow-up. She states that she has been doing well from a cardiac standpoint she adamantly denies any cardiac complaints or concerns. She denies any chest pain. She denies any shortness of breath. No lower extremity edema, orthopnea, or paroxysmal nocturnal dyspnea. She states that she did well postsurgery and denies any cardiac complications. She did have a prolonged rehab stay due to a broken bone that was discovered during surgery, and she was nonweightbearing. No additional cardiac complaints or concerns at the present time. She was switched to Eliquis by her surgeon, and she denies any bleeding complications. 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 non-steroidal anti-inflammatories (nsaid) S/P revision of total knee, right Stage 3a chronic kidney disease (CMS/HCC) Family History Problem Relation Name Age of Onset Hypertension Mother Heart disease Mother Cancer Father Social History Tobacco Use Smoking status: Former Types: Cigarettes Smokeless tobacco: Never Substance Use Topics Alcohol use: Yes Alcohol/week: 1.0 standard drink of alcohol Types: 1 Cans of beer per week Drug use: Never Review of Systems Cardiovascular: Negative for chest pain, claudication, dyspnea on exertion, irregular heartbeat, leg swelling, near-syncope, orthopnea, palpitations, paroxysmal nocturnal dyspnea and syncope. Neurological: Negative for light-headedness. Objective Visit Vitals BP 139/79 (BP Location: Left arm, Patient Position: Sitting) Pulse 73 Ht 1.575 m (5' 2 ) Wt 108 kg (238 lb) LMP (LMP Unknown) SpO2 98% BMI 43.53 kg/m??? OB Status Postmenopausal Smoking Status Former BSA 2.17 m??? Physical Exam General: Awake, alert, good spirits. NAD Pulm: Breath sounds clear to ascultation bilaterally with no wheeze, crackles or rhonchi Cards: Regular rate and rhythm, S1, S2. No S3 or S4 gallop. Murmur: none Abd: Soft, Nontender, physiologic bowel sounds are present Extr: Lower extremity edema: None. DP pulses:2+ Skin: warm, dry, well perfused Neuro: A&Ox3, No gross deficits Allergies No Known Allergies Medications Current Outpatient Medications: albuterol 90 mcg/actuation inhaler, albuterol sulfate HFA 90 mcg/actuation aerosol inhaler INHALE 2 PUFFS EVERY 4 HOURS NEEDED FOR SHORTNESS OF BREATH, Disp: , Rfl: allopurinol (Zyloprim) 300 mg tablet, allopurinol 300 mg tablet, Disp: , Rfl: apixaban (Eliquis) 5 mg tablet, TAKE 1 TABLET BY MOUTH EVERY 12 HOURS. THIS MEDICATION IS FOR BLOOD CLOT PREVENTION, Disp: 180 tablet, Rfl: 3 cholecalciferol (Vitamin D-3) 25 MCG (1000 UT) capsule, Take 1,000 Units by mouth in the morning., Disp: , Rfl: cloNIDine (Catapres) 0.1 mg tablet, clonidine HCl 0.1 mg tablet TAKE 1 TABLET BY MOUTH TWICE A DAY, Disp: , Rfl: colchicine 0.6 mg tablet, colchicine 0.6 mg tablet TAKE 1 TABLET BY MOUTH EVERY DAY NEEDED FOR FLARE, Disp: , Rfl: dilTIAZem ER (Tiazac) 240 mg 24 hr capsule, diltiazem CD 240 mg capsule,extended release 24 hr TAKE 1 CAPSULE BY MOUTH TWICE A DAY FOR 90 DAYS, Disp: , Rfl: DULoxetine (Cymbalta) [address] capsule, duloxetine 60 mg capsule,delayed release TAKE 1 CAPSULE BY MOUTH EVERY DAY, Disp: , Rfl: rujzvuegeaj-ymeermxcy-pewgmtvg 100-62.5-25 mcg blister with device, Trelegy Ellipta 100 mcg-62.5 mcg-25 mcg powder for inhalation INHALE 1 PUFF EVERY DAY BY INHALATION ROUTE, Disp: , Rfl: folic acid (more content not included)...[facility] 09-22-2022 NoteCardiology Clinic Note Subjective Sd Rehman is a 72 y.o. year old female patient with paroxysmal afib, HTN, GARETT with cpap, and mild MVR, presents for follow up. She was last seen for perioperative risk stratification for a right total knee arthroplasty. At that time, stress and echo were performed. Echo demonstrated a Normal LVEF, mild diastolic dysfunction, mild biatrial dilatation , and no significant valvular dysfunction. LCST: 06/03/2022 Lexiscan nuclear study was performed No significant ECG changes noted with stress Normal left ventricular ejection fraction and wall motion on gated images. Calculated LVEF 62% No transit ischemic dilatation noted. Calculated 3 times daily 1.11. Abnormal perfusion with inferior wall defect seen on both rest and stress images which could be due to soft tissue artifact versus infarct. Overall, low risk for cardiovascular events. Patient adamantly denies any cardiac complaints or concerns. Patient denies any chest pain or shortness of breath. Patient denies any lower extremity edema, orthopnea, or proximal nocturnal dyspnea. No near-syncope or syncope. No dizziness or lightheadedness. 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 non-steroidal anti-inflammatories (nsaid) S/P revision of total knee, right Stage 3a chronic kidney disease (CMS/HCC) Family History Problem Relation Name Age of Onset Hypertension Mother Heart disease Mother Cancer Father Social History Tobacco Use Smoking status: Former Types: Cigarettes Smokeless tobacco: Never Substance Use Topics Alcohol use: Yes Alcohol/week: 1.0 standard drink of alcohol Types: 1 Cans of beer per week Drug use: Never Review of Systems Cardiovascular: Negative for chest pain, claudication, dyspnea on exertion, irregular heartbeat, leg swelling, near-syncope, orthopnea, palpitations, paroxysmal nocturnal dyspnea and syncope. Neurological: Negative for light-headedness. Objective Visit Vitals BP 124/78 (BP Location: Right arm, Patient Position: Sitting) Pulse 83 Ht 1.334 m (4' 4.5 ) Wt 103 kg (228 lb) LMP (LMP Unknown) SpO2 97% BMI 58.16 kg/m??? OB Status Postmenopausal Smoking Status Former BSA 1.95 m??? Physical Exam General: Awake, alert, good spirits. NAD Pulm: Breath sounds clear to ascultation bilaterally with no wheeze, crackles or rhonchi Cards: Regular rate and rhythm, S1, S2. No S3 or S4 gallop. Murmur: none Abd: Soft, Nontender, physiologic bowel sounds are present Extr: Lower extremity edema: None. DP pulses:2+ Skin: warm, dry, well perfused Neuro: A&Ox3, No gross deficits Allergies No Known Allergies Medications Current Outpatient Medications: albuterol 90 mcg/actuation inhaler, albuterol sulfate HFA 90 mcg/actuation aerosol inhaler INHALE 2 PUFFS EVERY 4 HOURS NEEDED FOR SHORTNESS OF BREATH, Disp: , Rfl: allopurinol (Zyloprim) 300 mg tablet, allopurinol 300 mg tablet, Disp: , Rfl: cholecalciferol (Vitamin D-3) 25 MCG (1000 UT) capsule, Take 1,000 Units by mouth in the morning., Disp: , Rfl: cloNIDine (Catapres) 0.1 mg tablet, clonidine HCl 0.1 mg tablet TAKE 1 TABLET BY MOUTH TWICE A DAY, Disp: , Rfl: colchicine 0.6 mg tablet, colchicine 0.6 mg tablet TAKE 1 TABLET BY MOUTH EVERY DAY NEEDED FOR FLARE, Disp: , Rfl: dilTIAZem ER (Tiazac) 240 mg 24 hr capsule, diltiazem CD 240 mg capsule,extended release 24 hr TAKE 1 CAPSULE BY MOUTH TWICE A DAY FOR 90 DAYS, Disp: , Rfl: DULoxetine (Cymbalta) [address] capsule, duloxetine 60 mg capsule,delayed release TAKE 1 CAPSULE BY MOUTH EVERY DAY, Disp: , Rfl: Eliquis 5 mg tablet, TAKE 1 TABLET BY MOUTH EVERY 12 HOURS. THIS MEDICATION IS FOR BLOOD CLOT PREVENTION, Disp: , Rfl: emlqkknjmfb-bxgxcprtr-zkvaxlem 100-62.5-25 mcg blister with device, Trelegy Ellipta 100 mcg-62.5 mcg-25 mcg powder for inhalation INHALE 1 PUFF EVERY DAY BY INHALATION ROUTE, Disp: , Rfl: folic acid (Folvite) 800 mcg tablet, Take by mouth in the morning., Disp: , Rfl: furosemide (Lasix) 20 mg tablet, Take by mouth in the morning., Disp: , Rfl: loratadine (Claritin) 10 mg tablet, Take 1 tablet by mouth if needed., Disp: , Rfl: metoprolol succinate XL (Toprol-XL) 100 mg 24 hr tablet, Take 100 mg by mouth in the morning., Disp: , Rfl: rosuvastatin (Crestor) 20 mg tablet, rosuvastatin 20 mg tablet JAMEY (more content not included)...[facility]07-03-2023 NoteCardiology Clinic Note Subjective Sd Rehman is a 72 y.o. year old female patient with paroxysmal afib, HTN, GARETT with cpap, and mild MVR, presents for follow up. She was last seen for perioperative risk stratification for a right total knee arthroplasty. At that time, stress and echo were performed. Echo demonstrated a Normal LVEF, mild diastolic dysfunction, mild biatrial dilatation , and no significant valvular dysfunction. LCST: 06/03/2022 Lexiscan nuclear study was performed No significant ECG changes noted with stress Normal left ventricular ejection fraction and wall motion on gated images. Calculated LVEF 62% No transit ischemic dilatation noted. Calculated 3 times daily 1.11. Abnormal perfusion with inferior wall defect seen on both rest and stress images which could be due to soft tissue artifact versus infarct. Overall, low risk for cardiovascular events. Echocardiogram and stress test reviewed. No significant chamber enlargement or valvular dysfunction. Normal stress test with artifact, low risk for cardiovascular events. Stable findings, okay to hold Xarelto for 2-3 days preoperatively. OK to proceed with planned knee surgery. 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 Negative for chest pain, claudication, irregular heartbeat, leg swelling, near-syncope, orthopnea, palpitations, paroxysmal nocturnal dyspnea and syncope. Neurological: Positive for light-headedness. Objective Visit Vitals BP 124/78 (BP Location: Right arm, Patient Position: Sitting) Pulse 83 Ht 1.334 m (4' 4.5 ) Wt 103 kg (228 lb) LMP (LMP Unknown) SpO2 97% BMI 58.16 kg/m??? OB Status Postmenopausal Smoking Status Former BSA 1.95 m??? Physical Exam General: Awake, alert, good spirits. NAD Pulm: Breath sounds clear to ascultation bilaterally with no wheeze, crackles or rhonchi Cards: Regular rate and rhythm, S1, S2. No S3 or S4 gallop. Murmur: none Abd: Soft, Nontender, physiologic bowel sounds are present Extr: Lower extremity edema: None. DP pulses:2+ Skin: warm, dry, well perfused Neuro: A&Ox3, No gross deficits Allergies No Known Allergies Medications Current Outpatient Medications: albuterol 90 mcg/actuation inhaler, albuterol sulfate HFA 90 mcg/actuation aerosol inhaler INHALE 2 PUFFS EVERY 4 HOURS NEEDED FOR SHORTNESS OF BREATH, Disp: , Rfl: allopurinol (Zyloprim) 300 mg tablet, allopurinol 300 mg tablet, Disp: , Rfl: cholecalciferol (Vitamin D-3) 25 MCG (1000 UT) capsule, Take 1,000 Units by mouth in the morning., Disp: , Rfl: cloNIDine (Catapres) 0.1 mg tablet, clonidine HCl 0.1 mg tablet TAKE 1 TABLET BY MOUTH TWICE A DAY, Disp: , Rfl: colchicine 0.6 mg tablet, colchicine 0.6 mg tablet TAKE 1 TABLET BY MOUTH EVERY DAY NEEDED FOR FLARE, Disp: , Rfl: dilTIAZem ER (Tiazac) 240 mg 24 hr capsule, diltiazem CD 240 mg capsule,extended release 24 hr TAKE 1 CAPSULE BY MOUTH TWICE A DAY FOR 90 DAYS, Disp: , Rfl: DULoxetine (Cymbalta) [address] capsule, duloxetine 60 mg capsule,delayed release TAKE 1 CAPSULE BY MOUTH EVERY DAY, Disp: , Rfl: Eliquis 5 mg tablet, TAKE 1 TABLET BY MOUTH EVERY 12 HOURS. THIS MEDICATION IS FOR BLOOD CLOT PREVENTION, Disp: , Rfl: lueenfzxilq-cnfpmguqh-mxetiloz 100-62.5-25 mcg blister with device, Trelegy Ellipta 100 mcg-62.5 mcg-25 mcg powder for inhalation INHALE 1 PUFF EVERY DAY BY INHALATION ROUTE, Disp: , Rfl: folic acid (Folvite) 800 mcg tablet, Take by mouth in the morning., Disp: , Rfl: furosemide (Lasix) 20 mg tablet, Take by mouth in the morning., Disp: , Rfl: loratadine (Claritin) 10 mg tablet, Take 1 tablet by mouth if needed., Disp: , Rfl: metoprolol succinate XL (Toprol-XL) 100 mg 24 hr tablet, Take 100 mg by mouth in the morning., Disp: , Rfl: rosuvastatin (Crestor) 20 mg table (more content not included)...[facility]06-14-2023 History of Present illness Narrative* Estrella Mendoza LPN - 09/03/2022 1:40 PM EDT Ortho Nurse - Established Patient Intake Room#: 5--1 month follow up for weight bearing statis. She is at 50 % weight bearing and has full ROM. She has been doing PT every day along with OT. She has no pain today. Her Right TKA was on 06-09-22. Date: 09/03/2022 1:45 PM Patient: Sd Rehman MR#: [id number] : 1950 Age: 72 y.o. Referring Physician: Navin Clark MD Insurance: Payor: MEDICARE [employer] HMO OR PPO / Plan: MEDICARE [facility] HMO OR PPO / Product Type: *NoProduct type* / Chief Complaint Patient presents with Right Knee - Post Op Visit, Condition Update Visit Vitals Temp 96.9 F (36.1 C) (Temporal) Ht 1.588 m (5' 2.5 ) Wt 104.3 kg (230 lb) BMI 41.40 kg/m Pain Presence of Pain: denies pain/discomfort Recent Labs Lab Results Component Value Date CRP 9.5 05/15/2022 Lab Results Component Value Date SEDRATE 98 (H) 05/15/2022 Lab Results Component Value Date WBC 17.7 (H) 06/11/2022 HGB 9.5 (L) 06/11/2022 HCT 29.0 (L) 06/11/2022 PLATELET 330 06/11/2022 MCV 95.0 06/11/2022 History Past Medical History: Diagnosis Date Arrhythmia a-fib COPD (chronic obstructive pulmonary disease) Essential hypertension, benign Hyperlipidemia GARETT (obstructive sleep apnea) Renal disease Past Surgical History: Procedure Laterality Date REVISION ARTHROPLASTY KNEE Right 06/09/2022 Laterality: Right; Surgeon: Navin Clark MD; Location: [facility] KNEE REPLACEMENT Bilateral 2006 left in 2006 -right 2008---Dr. Crain APPENDECTOMY BREAST BIOPSY Bilateral TONSILLECTOMY Family History: Her family history includes Bleeding or Clotting Problems in her daughter and mother. Social History: Her reports that she quit smoking about 7 months ago. Her smoking use included cigarettes. She has never used smokeless tobacco. She reports current alcohol use. She reports that she does not use drugs. Outpatient Medications Prior to Visit Medication Sig Dispense Refill Acetaminophen 325 MG tablet Take 2 tablets by mouth every 4 hours as needed for Mild Pain. Do not exceed 4000mg of Tylenol in 24 hour period. 50 tablet 1 albuterol 108 (90 Base) MCG/ACT Aero Soln inhaler albuterol sulfate HFA 90 mcg/actuation aerosol inhaler INHALE 2 PUFFS EVERY 4 HOURS NEEDED FOR SHORTNESS OF BREATH allopurinol 300 MG tablet Take 1 tablet by mouth daily. Amoxicillin 500 MG capsule Take 4 capsules 1 hour before procedure 8 capsule 1 cloNIDine 0.1 MG tablet Take 1 tablet by mouth 2 times daily. colchicine 0.6 MG tablet colchicine 0.6 mg tablet TAKE 1 TABLET BY MOUTH EVERY DAY NEEDED FOR FLARE diltiazem 240 MG Cap SR 24HR Take 1 capsule by mouth 2 times daily. DULoxetine [address] Particles capsule DR Take 1 capsule by mouth daily. ferrous sulfate 325 (65 Fe) MG tablet Take 1 tablet by mouth 2 times daily. 60 tablet 1 Bzkafzudonc-Xkjmgcqae-Yxebvp (Trelegy Ellipta) 100-62.5-25 MCG/INH Aerosol Powder, breath activatedinhaler Inhale 1 puff daily. Folic Acid 800 MCG tablet Take by mouth daily. furOSEmide 20 MG tablet TAKE 1 TABLET BY MOUTH EVERY DAY FOR 90 DAYS Loratadine 10 MG tablet Take 1 tablet by mouth as needed. omeprazole [address] capsule Take 1 capsule by mouth daily. 30 capsule 0 Rosuvastatin 20 MG tablet Take 1 tablet by mouth daily. am Spironolactone 25 MG tablet Take 1 tablet by mouth daily. therapeutic multivitamin-minerals tablet Take 1 tablet by mouth at bedtime. 30 tablet 0 Varenicline Tartrate, Starter, (Chantix Starting Month ) 0.5 MG X 11 & 1 MG X 42 Tab TherapyPack Take 1 mg by mouth 2 times daily. apixaban 5 MG tablet Take 1 tablet by mouth every 12 hours. This medication is for blood clot prevention 60 tablet 0 Docusate 100 MG capsule Take 1 capsule by mouth 2 times daily. Hold for loose stools. (Patient not taking: Reported on 09/03/2022) 60 capsule 0 oxyCODONE 5 MG tablet Take one to two tabs every 4-6 hours as needed for severe pain. Wean as tolerated 30 tablet 0 No facility-administered medications prior to visit. Allergies: She has No Known Allergies. * Vita Joshi APRN-TAB CUTTER - 09/03/2022 1:40 PM EDT SUBJECTIVE: Sd is an established patient of mine. Here today for followup. She is now about 3 months out from right knee revision with periprosthetic fracture. She reports overall she is doing well, bending 0-100 in therapy, still wearing her brace. No problems with the wound. No fevers or chills. No changes constitutionally. PHYSICAL EXAMINATION: GENERAL: She is alert, oriented, and age-appropriate female, in no acute distress. Pleasant and cooperative. EXTREMITIES: Right lower extremity has thigh and calf soft, nontender. Normal neurovascular status. Negative Homans sign. Range of motion 0-100 degrees. Knee is stable to varus and valgus stress, doing well. No problems with the wound. Left lower extremity has thigh and calf soft, nontender. Normal neurovascular status. Negative Homans sign. DIAGNOSTIC STUDY INTERPRETATION: X-rays today demonstrate stable position and alignment of the cemented revision total knee arthroplasty, it is in unchanged position and alignment when compared to previous imaging. No evidence of periprosthetic implant loosening or migration. No evidence of fracture. There is overlying hardware from the brace, however. ASSESSMENT: Twelve weeks status post right knee revision, doing well. PLAN: I reviewed my findings with Sd. At this point, she can begin weightbearing as tolerated. All of her questions and concerns were addressed today. She could remove the brace, which was done for her here in the office. She will follow up at her routinely scheduled 4- month appointment or sooner as needed. ([id number]) I have reviewed the findings of the clinical learning support resource room teacher and agree with their assessment. Vita Joshi APRN-ADONIS Ortho Nurse - Established Patient Intake Room#: 5--1 month follow up for weight bearing statis. She is at 50 % weight bearing and has full ROM. She has been doing PT every day along with OT. She has no pain today. Her Right TKA was on 06-09-22. Date: 09/03/2022 1:45 PM Patient: Sd Rehman MR#: [id number] : 1950 Age: 72 y.o. Referring Physician: Navin Clark MD Insurance: Payor: MEDICARE [employer] HMO OR PPO / Plan: MEDICARE [employer] HMO OR PPO / Product Type: *NoProduct type* / Chief Complaint Patient presents with Right Knee - Post Op Visit, Condition Update Visit Vitals Temp 96.9 F (36.1 C) (Temporal) Ht 1.588 m (5' 2.5 ) Wt 104.3 kg (230 lb) BMI 41.40 kg/m Pain Presence of Pain: denies pain/discomfort Recent Labs Lab Results Component Value Date CRP 9.5 05/15/2022 Lab Results Component Value Date SEDRATE 98 (H) 05/15/2022 Lab Results Component Value Date WBC 17.7 (H) 06/11/2022 HGB 9.5 (L) 06/11/2022 HCT 29.0 (L) 06/11/2022 PLATELET 330 06/11/2022 MCV 95.0 06/11/2022 History Past Medical History: Diagnosis Date Arrhythmia a-fib COPD (chronic obstructive pulmonary disease) Essential hypertension, benign Hyperlipidemia GARETT (obstructive sleep apnea) Renal disease Past Surgical History: Procedure Laterality Date REVISION ARTHROPLASTY KNEE Right 06/09/2022 Laterality: Right; Surgeon: Navin Clark MD; Location: [facility] KNEE REPLACEMENT Bilateral 2006 left in 2006 -right 2008---Dr. Crain APPENDECTOMY BREAST BIOPSY Bilateral TONSILLECTOMY Family History: Her family history includes Bleeding or Clotting Problems in her daughter and mother. Social History: Her reports that she quit smoking about 7 months ago. Her smoking use included cigarettes. She has never used smokeless tobacco. She reports current alcohol use. She reports that she does not use drugs. Outpatient Medications Prior to Visit Medication Sig Dispense Refill Acetaminophen 325 MG tablet Take 2 tablets by mouth every 4 hours as needed for Mild Pain. Do not exceed 4000mg of Tylenol in 24 hour period. 50 tablet 1 albuterol 108 (90 Base) MCG/ACT Aero Soln inhaler albuterol sulfate HFA 90 mcg/actuation aerosol inhaler INHALE 2 PUFFS EVERY 4 HOURS NEEDED FOR SHORTNESS OF BREATH allopurinol 300 MG tablet Take 1 tablet by mouth daily. Amoxicillin 500 MG capsule Take 4 capsules 1 hour before procedure 8 capsule 1 cloNIDine 0.1 MG tablet Take 1 tablet by mouth 2 times daily. colchicine 0.6 MG tablet colchicine 0.6 mg tablet TAKE 1 TABLET BY MOUTH EVERY DAY NEEDED FOR FLARE diltiazem 240 MG Cap SR 24HR Take 1 capsule by mouth 2 times daily. DULoxetine [address] Particles capsule DR Take 1 capsule by mouth daily. ferrous sulfate 325 (65 Fe) MG tablet Take 1 tablet by mouth 2 times daily. 60 tablet 1 Lgqovaehamk-Pwwzewdry-Ectrkt (Trelegy Ellipta) 100-62.5-25 MCG/INH Aerosol Powder, breath activatedinhaler Inhale 1 puff daily. Folic Acid 800 MCG tablet Take by mouth daily. furOSEmide 20 MG tablet TAKE 1 TABLET BY MOUTH EVERY DAY FOR 90 DAYS Loratadine 10 MG tablet Take 1 tablet by mouth as needed. omeprazole [address] capsule Take 1 capsule by mouth daily. 30 capsule 0 Rosuvastatin 20 MG tablet Take 1 tablet by mouth daily. am Spironolactone 25 MG tablet Take 1 tablet by mouth daily. therapeutic multivitamin-minerals tablet Take 1 tablet by mouth at bedtime. 30 tablet 0 Varenicline Tartrate, Starter, (Chantix Starting Month ) 0.5 MG X 11 & 1 MG X 42 Tab TherapyPack Take 1 mg by mouth 2 times daily. apixaban 5 MG tablet Take 1 tablet by mouth every 12 hours. This medication is for blood clot prevention 60 tablet 0 Docusate 100 MG capsule Take 1 capsule by mouth 2 times daily. Hold for loose stools. (Patient not taking: Reported on 09/03/2022) 60 capsule 0 oxyCODONE 5 MG tablet Take one to two tabs every 4-6 hours as needed for severe pain. Wean as tolerated 30 tablet 0 No facility-administered medications prior to visit. Allergies: She has No Known Allergies. [facility] History of Present illness Narrative* Rebecca Odom - 07/30/2022 1:20 PM EDT Ortho Nurse - Established Patient Intake Room#: 5 Date: 07/30/2022 1:48 PM Patient: Sd Rehman MR#: [id number] : 1950 Age: 72 y.o. 7wk R TKA Pt stated she not having any pain 0/10 on the pain scale. Pt was in a wheelchair and brace at the time of visit. Referring Physician: Self, Self Insurance: Payor: MEDICARE [employer] HMO OR PPO / Plan: MEDICARE [employer] HMO OR PPO / Product Type: *NoProduct type* / Chief Complaint Patient presents with Right Knee - Follow-up Visit Vitals Temp 97 F (36.1 C) (Temporal) Ht 1.575 m (5' 2 ) Wt 102.1 kg (225 lb) BMI 41.15 kg/m Pain Recent Labs Lab Results Component Value Date CRP 9.5 05/15/2022 Lab Results Component Value Date SEDRATE 98 (H) 05/15/2022 Lab Results Component Value Date WBC 17.7 (H) 06/11/2022 HGB 9.5 (L) 06/11/2022 HCT 29.0 (L) 06/11/2022 PLATELET 330 06/11/2022 MCV 95.0 06/11/2022 History Past Medical History: Diagnosis Date Arrhythmia a-fib COPD (chronic obstructive pulmonary disease) Essential hypertension, benign Hyperlipidemia GARETT (obstructive sleep apnea) Renal disease Past Surgical History: Procedure Laterality Date REVISION ARTHROPLASTY KNEE Right 06/09/2022 Laterality: Right; Surgeon: Navin Clark MD; Location: [facility] KNEE REPLAC[facility] Bilateral 2006 left in 2006 -right 2008---Dr. Crain APPENDECTOMY BREAST BIOPSY Bilateral TONSILLECTOMY Family History: Her family history includes Bleeding or Clotting Problems in her daughter and mother. Social History: Her reports that she quit smoking about 6 months ago. Her smoking use included cigarettes. She has never used smokeless tobacco. She reports current alcohol use. She reports that she does not use drugs. Outpatient Medications Prior to Visit Medication Sig Dispense Refill Acetaminophen 325 MG tablet Take 2 tablets by mouth every 4 hours as needed for Mild Pain. Do not exceed 4000mg of Tylenol in 24 hour period. 50 tablet 1 albuterol 108 (90 Base) MCG/ACT Aero Soln inhaler albuterol sulfate HFA 90 mcg/actuation aerosol inhaler INHALE 2 PUFFS EVERY 4 HOURS NEEDED FOR SHORTNESS OF BREATH allopurinol 300 MG tablet Take 1 tablet by mouth daily. Amoxicillin 500 MG capsule Take 4 capsules 1 hour before procedure 8 capsule 1 cloNIDine 0.1 MG tablet Take 1 tablet by mouth 2 times daily. colchicine 0.6 MG tablet colchicine 0.6 mg tablet TAKE 1 TABLET BY MOUTH EVERY DAY NEEDED FOR FLARE diltiazem 240 MG Cap SR 24HR Take 1 capsule by mouth 2 times daily. Docusate 100 MG capsule Take 1 capsule by mouth 2 times daily. Hold for loose stools. 60 capsule 0 DULoxetine [address] Particles capsule DR Take 1 capsule by mouth daily. ferrous sulfate 325 (65 Fe) MG tablet Take 1 tablet by mouth 2 times daily. 60 tablet 1 Bzvbzdhtscc-Mmzmpktnx-Ozxapc (Trelegy Ellipta) 100-62.5-25 MCG/INH Aerosol Powder, breath activatedinhaler Inhale 1 puff daily. Folic Acid 800 MCG tablet Take by mouth daily. furOSEmide 20 MG tablet TAKE 1 TABLET BY MOUTH EVERY DAY FOR 90 DAYS Loratadine 10 MG tablet Take 1 tablet by mouth as needed. omeprazole [address] capsule Take 1 capsule by mouth daily. 30 capsule 0 Rosuvastatin 20 MG tablet Take 1 tablet by mouth daily. am Spironolactone 25 MG tablet Take 1 tablet by mouth daily. therapeutic multivitamin-minerals tablet Take 1 tablet by mouth at bedtime. 30 tablet 0 Varenicline Tartrate, Starter, (Chantix Starting Month ) 0.5 MG X 11 & 1 MG X 42 Tab TherapyPack Take 1 mg by mouth 2 times daily. apixaban 5 MG tablet Take 1 tablet by mouth every 12 hours. This medication is for blood clot prevention 60 tablet 0 oxyCODONE 5 MG tablet Take one to two tabs every 4-6 hours as needed for severe pain. Wean as tolerated 30 tablet 0 No facility-administered medications prior to visit. Current Outpatient Medications: Acetaminophen 325 MG tablet, Take 2 tablets by mouth every 4 hours as needed for Mild Pain. Do not exceed 4000mg of Tylenol in 24 hour period., Disp: 50 tablet, Rfl: 1 albuterol 108 (90 Base) MCG/ACT Aero Soln inhaler, albuterol sulfate HFA 90 mcg/actuation aerosol inhaler INHALE 2 PUFFS EVERY 4 HOURS NEEDED FOR SHORTNESS OF BREATH, Disp: , Rfl: allopurinol 300 MG tablet, Take 1 tablet by mouth daily., Disp: , Rfl: Amoxicillin 500 MG capsule, Take 4 capsules 1 hour before procedure, Disp: 8 capsule, Rfl: 1 cloNIDine 0.1 MG tablet, Take 1 tablet by mouth 2 times daily., Disp: , Rfl: colchicine 0.6 MG tablet, colchicine 0.6 mg tablet TAKE 1 TABLET BY MOUTH EVERY DAY NEEDED FOR FLARE, Disp: , Rfl: diltiazem 240 MG Cap SR 24HR, Take 1 capsule by mouth 2 times daily., Disp: , Rfl: Docusate 100 MG capsule, Take 1 capsule by mouth 2 times daily. Hold for loose stools., Disp: 60 capsule, Rfl: [address] DULoxetine [address] Particles capsule DR, Take 1 capsule by mouth daily., Disp: , Rfl: ferrous sulfate 325 (65 Fe) MG tablet, Take 1 tablet by mouth 2 times daily., Disp: 60 tablet, Rfl:1 Mnncxbgvhsu-Afckwzkyr-Wenuco (Trelegy Ellipta) 100-62.5-25 MCG/INH Aerosol Powder, breath activatedinhaler, Inhale 1 puff daily., Disp: , Rfl: Folic Acid 800 MCG tablet, Take by mouth daily., Disp: , Rfl: furOSEmide 20 MG tablet, TAKE 1 TABLET BY MOUTH EVERY DAY FOR 90 DAYS, Disp: , Rfl: Loratadine 10 MG tablet, Take 1 tablet by mouth as needed., Disp: , Rfl: omeprazole [address] capsule, Take 1 capsule by mouth daily., Disp: 30 capsule, Rfl: 0 Rosuvastatin 20 MG tablet, Take 1 tablet by mouth daily. am, Disp: , Rfl: Spironolactone 25 MG tablet, Take 1 tablet by mouth daily., Disp: , Rfl: therapeutic multivitamin-minerals tablet, Take 1 tablet by mouth at bedtime., Disp: 30 tablet, Rfl:0 Varenicline Tartrate, Starter, (Chantix Starting Month Froylan) 0.5 MG X 11 & 1 MG X 42 Tab TherapyPack, Take 1 mg by mouth 2 times daily., Disp: , Rfl: apixaban 5 MG tablet, Take 1 tablet by mouth every 12 hours. This medication is for blood clot prevention, Disp: 60 tablet, Rfl: 0 oxyCODONE 5 MG tablet, Take one to two tabs every 4-6 hours as needed for severe pain. Wean as tolerated, Disp: 30 tablet, Rfl: 0 Allergies: She has No Known Allergies. * Vita Joshi APRN-TAB CUTTER - 07/30/2022 1:20 PM EDT SUBJECTIVE: Sd is an established patient of mine. She is here today for followup. She is now nearly 2 months out from right knee revision surgery, where she had a periprosthetic intraoperative fracture of the tibia and has been limited her weightbearing. She has been moving her range of motion out at the direction of physical therapy, but has been maintaining nonweightbearing. She is having no fevers or chills. No changes constitutionally. No complaints in the way of pain. She is still residing in the long term. PHYSICAL EXAMINATION: GENERAL: She is alert, oriented, and age-appropriate female, in no acute distress. Pleasant and cooperative. EXTREMITIES: Right lower extremity has thigh and calf soft, nontender. Normal neurovascular status. Negative Homans sign. Range of motion 0-80 degrees actively. She has good active extension, no disruption to extensor mechanism to palpation. The skin is intact with a well-healed incision. Left lower extremity has thigh and calf soft, nontender. Normal neurovascular status. Negative Homans sign. DIAGNOSTIC STUDY INTERPRETATION: Two views of the knee taken today demonstrate stable position and alignment of the cemented total knee arthroplasty, it is in unchanged position and alignment when compared to previous imaging. No evidence of periprosthetic implant loosening or migration. No evidence of fracture. ASSESSMENT: Six weeks status post right knee revision, doing well. PLAN: I reviewed my findings with Sd as well as her family today. At this point, she may begin toe-touch weightbearing for the next 2 weeks. Okay for range of motion 0-90 for the next 2 weeks and then may begin partial weightbearing and may advance her range of motion past 90. I will see her back in 4 weeks' time for repeat clinical and radiographic examination. All of her questions and concerns were addressed today to her satisfaction. Call with any questions or concerns in the meantime. (DOC:[id number]) I have reviewed the findings of the clinical learning support resource room teacher and agree with their assessment. [facility] Nurse - Established Patient Intake Room#: 5 Date: 07/30/2022 1:48 PM Patient: Sd Rehman MR#: [id number] : 1950 Age: 72 y.o. 7wk R TKA Pt stated she not having any pain 0/10 on the pain scale. Pt was in a wheelchair and brace at the time of visit. Referring Physician: Self, Self Insurance: Payor: MEDICARE ANTHEM HMO OR PPO / Plan: MEDICARE ANTHEM HMO OR PPO / Product Type: *NoProduct type* / Chief Complaint Patient presents with Right Knee - Follow-up Visit Vitals Temp 97 F (36.1 C) (Temporal) Ht 1.575 m (5' 2 ) Wt 102.1 kg (225 lb) BMI 41.15 kg/m Pain Recent Labs Lab Results Component Value Date CRP 9.5 05/15/2022 Lab Results Component Value Date SEDRATE 98 (H) 05/15/2022 Lab Results Component Value Date WBC 17.7 (H) 06/11/2022 HGB 9.5 (L) 06/11/2022 HCT 29.0 (L) 06/11/2022 PLATELET 330 06/11/2022 MCV 95.0 06/11/2022 History Past Medical History: Diagnosis Date Arrhythmia a-fib COPD (chronic obstructive pulmonary disease) Essential hypertension, benign Hyperlipidemia GARETT (obstructive sleep apnea) Renal disease Past Surgical History: Procedure Laterality Date REVISION ARTHROPLASTY KNEE Right 06/09/2022 Laterality: Right; Surgeon: Navin Clark MD; Location: [facility]EE REPLAC[facility] Bilateral 2006 left in 2006 -right 2008---Dr. Crain APPENDECTOMY BREAST BIOPSY Bilateral TONSILLECTOMY Family History: Her family history includes Bleeding or Clotting Problems in her daughter and mother. Social History: Her reports that she quit smoking about 6 months ago. Her smoking use included cigarettes. She has never used smokeless tobacco. She reports current alcohol use. She reports that she does not use drugs. Outpatient Medications Prior to Visit Medication Sig Dispense Refill Acetaminophen 325 MG tablet Take 2 tablets by mouth every 4 hours as needed for Mild Pain. Do not exceed 4000mg of Tylenol in 24 hour period. 50 tablet 1 albuterol 108 (90 Base) MCG/ACT Aero Soln inhaler albuterol sulfate HFA 90 mcg/actuation aerosol inhaler INHALE 2 PUFFS EVERY 4 HOURS NEEDED FOR SHORTNESS OF BREATH allopurinol 300 MG tablet Take 1 tablet by mouth daily. Amoxicillin 500 MG capsule Take 4 capsules 1 hour before procedure 8 capsule 1 cloNIDine 0.1 MG tablet Take 1 tablet by mouth 2 times daily. colchicine 0.6 MG tablet colchicine 0.6 mg tablet TAKE 1 TABLET BY MOUTH EVERY DAY NEEDED FOR FLARE diltiazem 240 MG Cap SR 24HR Take 1 capsule by mouth 2 times daily. Docusate 100 MG capsule Take 1 capsule by mouth 2 times daily. Hold for loose stools. 60 capsule 0 DULoxetine [address] Particles capsule DR Take 1 capsule by mouth daily. ferrous sulfate 325 (65 Fe) MG tablet Take 1 tablet by mouth 2 times daily. 60 tablet 1 Izmvqxvhiwc-Nlkqrcvel-Qeqlrl (Trelegy Ellipta) 100-62.5-25 MCG/INH Aerosol Powder, breath activatedinhaler Inhale 1 puff daily. Folic Acid 800 MCG tablet Take by mouth daily. furOSEmide 20 MG tablet TAKE 1 TABLET BY MOUTH EVERY DAY FOR 90 DAYS Loratadine 10 MG tablet Take 1 tablet by mouth as needed. omeprazole [address] capsule Take 1 capsule by mouth daily. 30 capsule 0 Rosuvastatin 20 MG tablet Take 1 tablet by mouth daily. am Spironolactone 25 MG tablet Take 1 tablet by mouth daily. therapeutic multivitamin-minerals tablet Take 1 tablet by mouth at bedtime. 30 tablet 0 Varenicline Tartrate, Starter, (Chantix Starting Month ) 0.5 MG X 11 & 1 MG X 42 Tab TherapyPack Take 1 mg by mouth 2 times daily. apixaban 5 MG tablet Take 1 tablet by mouth every 12 hours. This medication is for blood clot prevention 60 tablet 0 oxyCODONE 5 MG tablet Take one to two tabs every 4-6 hours as needed for severe pain. Wean as tolerated 30 tablet 0 No facility-administered medications prior to visit. Current Outpatient Medications: Acetaminophen 325 MG tablet, Take 2 tablets by mouth every 4 hours as needed for Mild Pain. Do not exceed 4000mg of Tylenol in 24 hour period., Disp: 50 tablet, Rfl: 1 albuterol 108 (90 Base) MCG/ACT Aero Soln inhaler, albuterol sulfate HFA 90 mcg/actuation aerosol inhaler INHALE 2 PUFFS EVERY 4 HOURS NEEDED FOR SHORTNESS OF BREATH, Disp: , Rfl: allopurinol 300 MG tablet, Take 1 tablet by mouth daily., Disp: , Rfl: Amoxicillin 500 MG capsule, Take 4 capsules 1 hour before procedure, Disp: 8 capsule, Rfl: 1 cloNIDine 0.1 MG tablet, Take 1 tablet by mouth 2 times daily., Disp: , Rfl: colchicine 0.6 MG tablet, colchicine 0.6 mg tablet TAKE 1 TABLET BY MOUTH EVERY DAY NEEDED FOR FLARE, Disp: , Rfl: diltiazem 240 MG Cap SR 24HR, Take 1 capsule by mouth 2 times daily., Disp: , Rfl: Docusate 100 MG capsule, Take 1 capsule by mouth 2 times daily. Hold for loose stools., Disp: 60 capsule, Rfl: 0 DULoxetine [address] Particles capsule DR, Take 1 capsule by mouth daily., Disp: , Rfl: ferrous sulfate 325 (65 Fe) MG tablet, Take 1 tablet by mouth 2 times daily., Disp: 60 tablet, Rfl:1 Hudpyxmdnum-Dysdhltoa-Jhjzhu (Trelegy Ellipta) 100-62.5-25 MCG/INH Aerosol Powder, breath activatedinhaler, Inhale 1 puff daily., Disp: , Rfl: Folic Acid 800 MCG tablet, Take by mouth daily., Disp: , Rfl: furOSEmide 20 MG tablet, TAKE 1 TABLET BY MOUTH EVERY DAY FOR 90 DAYS, Disp: , Rfl: Loratadine 10 MG tablet, Take 1 tablet by mouth as needed., Disp: , Rfl: omeprazole [address] capsule, Take 1 capsule by mouth daily., Disp: 30 capsule, Rfl: 0 Rosuvastatin 20 MG tablet, Take 1 tablet by mouth daily. am, Disp: , Rfl: Spironolactone 25 MG tablet, Take 1 tablet by mouth daily., Disp: , Rfl: therapeutic multivitamin-minerals tablet, Take 1 tablet by mouth at bedtime., Disp: 30 tablet, Rfl:0 Varenicline Tartrate, Starter, (Chantix Starting Month ) 0.5 MG X 11 & 1 MG X 42 Tab TherapyPack, Take 1 mg by mouth 2 times daily., Disp: , Rfl: apixaban 5 MG tablet, Take 1 tablet by mouth every 12 hours. This medication is for blood clot prevention, Disp: 60 tablet, Rfl: 0 oxyCODONE 5 MG tablet, Take one to two tabs every 4-6 hours as needed for severe pain. Wean as tolerated, Disp: 30 tablet, Rfl: 0 Allergies: She has No Known Allergies. documented in this [facility]04-19-2023 History of Present illness Narrative* Rebecca Odom - 07/09/2022 9:00 AM EDT Ortho Nurse - Established Patient Intake Room#: 4 Date: 07/09/2022 9:21 AM Patient: Sd Rehman MR#: [id number] : 1950 Age: 72 y.o. 4wk R TKA Pt stated she is doing ok and has at time a feeling of electric shock but denies any painat this time.0/10 on the pain scale. Pt was wearing her brace and in a wheelchair at the time of visit. Referring Physician: Self, Self Insurance: Payor: MEDICARE ANTHEM HMO OR PPO / Plan: MEDICARE [employer] HMO OR PPO / Product Type: *NoProduct type* / Chief Complaint Patient presents with Right Knee - Follow-up Visit Vitals Temp 97.3 F (36.3 C) (Temporal) Ht 1.575 m (5' 2 ) Wt 102.1 kg (225 lb) BMI 41.15 kg/m Pain Recent Labs Lab Results Component Value Date CRP 9.5 05/15/2022 Lab Results Component Value Date SEDRATE 98 (H) 05/15/2022 Lab Results Component Value Date WBC 17.7 (H) 06/11/2022 HGB 9.5 (L) 06/11/2022 HCT 29.0 (L) 06/11/2022 PLATELET 330 06/11/2022 MCV 95.0 06/11/2022 History Past Medical History: Diagnosis Date Arrhythmia a-fib COPD (chronic obstructive pulmonary disease) Essential hypertension, benign Hyperlipidemia GARETT (obstructive sleep apnea) Renal disease Past Surgical History: Procedure Laterality Date REVISION ARTHROPLASTY KNEE Right 06/09/2022 Laterality: Right; Surgeon: Navin Clark MD; Location: [facility] REPLAC[facility] Bilateral 2006 left in 2006 -right 2008---Dr. Crain APPENDECTOMY BREAST BIOPSY Bilateral TONSILLECTOMY Family History: Her family history includes Bleeding or Clotting Problems in her daughter and mother. Social History: Her reports that she quit smoking about 5 months ago. Her smoking use included cigarettes. She has never used smokeless tobacco. She reports current alcohol use. She reports that she does not use drugs. Outpatient Medications Prior to Visit Medication Sig Dispense Refill Acetaminophen 325 MG tablet Take 2 tablets by mouth every 4 hours as needed for Mild Pain. Do not exceed 4000mg of Tylenol in 24 hour period. 50 tablet 1 albuterol 108 (90 Base) MCG/ACT Aero Soln inhaler albuterol sulfate HFA 90 mcg/actuation aerosol inhaler INHALE 2 PUFFS EVERY 4 HOURS NEEDED FOR SHORTNESS OF BREATH allopurinol 300 MG tablet Take 1 tablet by mouth daily. Amoxicillin 500 MG capsule Take 4 capsules 1 hour before procedure 8 capsule 1 apixaban 5 MG tablet Take 1 tablet by mouth every 12 hours. This medication is for blood clot prevention 60 tablet 0 cloNIDine 0.1 MG tablet Take 1 tablet by mouth 2 times daily. colchicine 0.6 MG tablet colchicine 0.6 mg tablet TAKE 1 TABLET BY MOUTH EVERY DAY NEEDED FOR FLARE diltiazem 240 MG Cap SR 24HR Take 1 capsule by mouth 2 times daily. Docusate 100 MG capsule Take 1 capsule by mouth 2 times daily. Hold for loose stools. 60 capsule 0 DULoxetine [address] Particles capsule DR Take 1 capsule by mouth daily. ferrous sulfate 325 (65 Fe) MG tablet Take 1 tablet by mouth 2 times daily. 60 tablet 1 Ijzwfveivvw-Drdarupqp-Zufnro (Trelegy Ellipta) 100-62.5-25 MCG/INH Aerosol Powder, breath activatedinhaler Inhale 1 puff daily. Folic Acid 800 MCG tablet Take by mouth daily. furOSEmide 20 MG tablet TAKE 1 TABLET BY MOUTH EVERY DAY FOR 90 DAYS Loratadine 10 MG tablet Take 1 tablet by mouth as needed. omeprazole [address] capsule Take 1 capsule by mouth daily. 30 capsule 0 Rosuvastatin 20 MG tablet Take 1 tablet by mouth daily. am Spironolactone 25 MG tablet Take 1 tablet by mouth daily. therapeutic multivitamin-minerals tablet Take 1 tablet by mouth at bedtime. 30 tablet 0 Varenicline Tartrate, Starter, (Chantix Starting Month ) 0.5 MG X 11 & 1 MG X 42 Tab TherapyPack Take 1 mg by mouth 2 times daily. oxyCODONE 5 MG tablet Take one to two tabs every 4-6 hours as needed for severe pain. Wean as tolerated 30 tablet 0 No facility-administered medications prior to visit. Current Outpatient Medications: Acetaminophen 325 MG tablet, Take 2 tablets by mouth every 4 hours as needed for Mild Pain. Do not exceed 4000mg of Tylenol in 24 hour period., Disp: 50 tablet, Rfl: 1 albuterol 108 (90 Base) MCG/ACT Aero Soln inhaler, albuterol sulfate HFA 90 mcg/actuation aerosol inhaler INHALE 2 PUFFS EVERY 4 HOURS NEEDED FOR SHORTNESS OF BREATH, Disp: , Rfl: allopurinol 300 MG tablet, Take 1 tablet by mouth daily., Disp: , Rfl: Amoxicillin 500 MG capsule, Take 4 capsules 1 hour before procedure, Disp: 8 capsule, Rfl: 1 apixaban 5 MG tablet, Take 1 tablet by mouth every 12 hours. This medication is for blood clot prevention, Disp: 60 tablet, Rfl: 0 cloNIDine 0.1 MG tablet, Take 1 tablet by mouth 2 times daily., Disp: , Rfl: colchicine 0.6 MG tablet, colchicine 0.6 mg tablet TAKE 1 TABLET BY MOUTH EVERY DAY NEEDED FOR FLARE, Disp: , Rfl: diltiazem 240 MG Cap SR 24HR, Take 1 capsule by mouth 2 times daily., Disp: , Rfl: Docusate 100 MG capsule, Take 1 capsule by mouth 2 times daily. Hold for loose stools., Disp: 60 capsule, Rfl: 0 DULoxetine [address] Particles capsule DR, Take 1 capsule by mouth daily., Disp: , Rfl: ferrous sulfate 325 (65 Fe) MG tablet, Take 1 tablet by mouth 2 times daily., Disp: 60 tablet, Rfl:1 Hiohsrnxrjm-Sbvgzzqde-Bnlffk (Trelegy Ellipta) 100-62.5-25 MCG/INH Aerosol Powder, breath activatedinhaler, Inhale 1 puff daily., Disp: , Rfl: Folic Acid 800 MCG tablet, Take by mouth daily., Disp: , Rfl: furOSEmide 20 MG tablet, TAKE 1 TABLET BY MOUTH EVERY DAY FOR 90 DAYS, Disp: , Rfl: Loratadine 10 MG tablet, Take 1 tablet by mouth as needed., Disp: , Rfl: omeprazole [address] capsule, Take 1 capsule by mouth daily., Disp: 30 capsule, Rfl: 0 Rosuvastatin 20 MG tablet, Take 1 tablet by mouth daily. am, Disp: , Rfl: Spironolactone 25 MG tablet, Take 1 tablet by mouth daily., Disp: , Rfl: therapeutic multivitamin-minerals tablet, Take 1 tablet by mouth at bedtime., Disp: 30 tablet, Rfl:0 Varenicline Tartrate, Starter, (Chantix Starting Month Froylan) 0.5 MG X 11 & 1 MG X 42 Tab TherapyPack, Take 1 mg by mouth 2 times daily., Disp: , Rfl: oxyCODONE 5 MG tablet, Take one to two tabs every 4-6 hours as needed for severe pain. Wean as tolerated, Disp: 30 tablet, Rfl: 0 Allergies: She has No Known Allergies. * Vitaliberty LloydeySHIVANI-TAB CUTTER - 07/09/2022 9:00 AM EDT SUBJECTIVE: Sd is an established patient of mine. She is here today for followup. She is now about 4 weeks out from right knee revision. Reports overall she is doing well. Not much in the way of pain. No fevers or chills. No changes constitutionally. No problems with the wound. She has been achieving 40 degrees of flexion with a T-ROM brace and is continuing her nonweightbearing as ordered. PHYSICAL EXAMINATION: GENERAL: She is alert, oriented, and age-appropriate female, in no acute distress. Pleasant and cooperative. EXTREMITIES: Right lower extremity has thigh and calf soft, nontender. Normal neurovascular status. Negative Homans sign. Range of motion 0-40 degrees actively. Knee is stable to varus and valgus stress with limited exam with the brace in place. Well-healed anterior midline knee incision without any redness, drainage, dehiscence, discharge, signs or symptoms of infection. Left lower extremity has thigh and calf soft, nontender. Normal neurovascular status. Negative Homans sign. DIAGNOSTIC STUDY INTERPRETATION: Multiple views of the right knee taken today demonstrate stable position and alignment of cemented revision total knee arthroplasty, it is in unchanged position and alignment when compared to previous imaging. No evidence of periprosthetic implant loosening or migration. Unable to visualize the intraoperative fractures on these x-ray. These images were reviewed with Dr. Clark who agreed with my interpretation. ASSESSMENT: Four weeks status post right knee revision, doing well. PLAN: I reviewed my findings with Sd as well as her family today. At this point, I am okay with her brace as able with the limitations of the settings of the brace being somewhat of a hindrance with that. All she can do as best she can. She could increase 60 degrees today or 70, whatever the brace may allow and not more than 90 degrees at the time I see her back. I have addressed all of her questions today to her satisfaction. She will follow up with me in 3 more weeks for repeat clinical and radiographic examination and the I will plan for beginning toe-touch weightbearing at that time and slow advance as needed. (DOC:[id number]) I have reviewed the findings of the clinical learning support resource room teacher and agree with their assessment. Vita Joshi APRN-ADONIS Ortho Nurse - Established Patient Intake Room#: 4 Date: 07/09/2022 9:21 AM Patient: Sd Rehman MR#: [id number] : 1950 Age: 72 y.o. 4wk R TKA Pt stated she is doing ok and has at time a feeling of electric shock but denies any painat this time.0/10 on the pain scale. Pt was wearing her brace and in a wheelchair at the time of visit. Referring Physician: Self, Self Insurance: Payor: MEDICARE ANTHEM HMO OR PPO / Plan: MEDICARE ANTHEM HMO OR PPO / Product Type: *NoProduct type* / Chief Complaint Patient presents with Right Knee - Follow-up Visit Vitals Temp 97.3 F (36.3 C) (Temporal) Ht 1.575 m (5' 2 ) Wt 102.1 kg (225 lb) BMI 41.15 kg/m Pain Recent Labs Lab Results Component Value Date CRP 9.5 05/15/2022 Lab Results Component Value Date SEDRATE 98 (H) 05/15/2022 Lab Results Component Value Date WBC 17.7 (H) 06/11/2022 HGB 9.5 (L) 06/11/2022 HCT 29.0 (L) 06/11/2022 PLATELET 330 06/11/2022 MCV 95.0 06/11/2022 History Past Medical History: Diagnosis Date Arrhythmia a-fib COPD (chronic obstructive pulmonary disease) Essential hypertension, benign Hyperlipidemia GARETT (obstructive sleep apnea) Renal disease Past Surgical History: Procedure Laterality Date REVISION ARTHROPLASTY KNEE Right 06/09/2022 Laterality: Right; Surgeon: Navin Clark MD; Location: [facility] REPLAC[facility] Bilateral 2006 left in 2006 -right 2008---Dr. Crain APPENDECTOMY BREAST BIOPSY Bilateral TONSILLECTOMY Family History: Her family history includes Bleeding or Clotting Problems in her daughter and mother. Social History: Her reports that she quit smoking about 5 months ago. Her smoking use included cigarettes. She has never used smokeless tobacco. She reports current alcohol use. She reports that she does not use drugs. Outpatient Medications Prior to Visit Medication Sig Dispense Refill Acetaminophen 325 MG tablet Take 2 tablets by mouth every 4 hours as needed for Mild Pain. Do not exceed 4000mg of Tylenol in 24 hour period. 50 tablet 1 albuterol 108 (90 Base) MCG/ACT Aero Soln inhaler albuterol sulfate HFA 90 mcg/actuation aerosol inhaler INHALE 2 PUFFS EVERY 4 HOURS NEEDED FOR SHORTNESS OF BREATH allopurinol 300 MG tablet Take 1 tablet by mouth daily. Amoxicillin 500 MG capsule Take 4 capsules 1 hour before procedure 8 capsule 1 apixaban 5 MG tablet Take 1 tablet by mouth every 12 hours. This medication is for blood clot prevention 60 tablet 0 cloNIDine 0.1 MG tablet Take 1 tablet by mouth 2 times daily. colchicine 0.6 MG tablet colchicine 0.6 mg tablet TAKE 1 TABLET BY MOUTH EVERY DAY NEEDED FOR FLARE diltiazem 240 MG Cap SR 24HR Take 1 capsule by mouth 2 times daily. Docusate 100 MG capsule Take 1 capsule by mouth 2 times daily. Hold for loose stools. 60 capsule 0 DULoxetine [address] Particles capsule DR Take 1 capsule by mouth daily. ferrous sulfate 325 (65 Fe) MG tablet Take 1 tablet by mouth 2 times daily. 60 tablet 1 Xtlwuvpbzim-Grqrfakyv-Djjrhg (Trelegy Ellipta) 100-62.5-25 MCG/INH Aerosol Powder, breath activatedinhaler Inhale 1 puff daily. Folic Acid 800 MCG tablet Take by mouth daily. furOSEmide 20 MG tablet TAKE 1 TABLET BY MOUTH EVERY DAY FOR 90 DAYS Loratadine 10 MG tablet Take 1 tablet by mouth as needed. omeprazole [address] capsule Take 1 capsule by mouth daily. 30 capsule 0 Rosuvastatin 20 MG tablet Take 1 tablet by mouth daily. am Spironolactone 25 MG tablet Take 1 tablet by mouth daily. therapeutic multivitamin-minerals tablet Take 1 tablet by mouth at bedtime. 30 tablet 0 Varenicline Tartrate, Starter, (Chantix Starting Month ) 0.5 MG X 11 & 1 MG X 42 Tab TherapyPack Take 1 mg by mouth 2 times daily. oxyCODONE 5 MG tablet Take one to two tabs every 4-6 hours as needed for severe pain. Wean as tolerated 30 tablet 0 No facility-administered medications prior to visit. Current Outpatient Medications: Acetaminophen 325 MG tablet, Take 2 tablets by mouth every 4 hours as needed for Mild Pain. Do not exceed 4000mg of Tylenol in 24 hour period., Disp: 50 tablet, Rfl: 1 albuterol 108 (90 Base) MCG/ACT Aero Soln inhaler, albuterol sulfate HFA 90 mcg/actuation aerosol inhaler INHALE 2 PUFFS EVERY 4 HOURS NEEDED FOR SHORTNESS OF BREATH, Disp: , Rfl: allopurinol 300 MG tablet, Take 1 tablet by mouth daily., Disp: , Rfl: Amoxicillin 500 MG capsule, Take 4 capsules 1 hour before procedure, Disp: 8 capsule, Rfl: 1 apixaban 5 MG tablet, Take 1 tablet by mouth every 12 hours. This medication is for blood clot prevention, Disp: 60 tablet, Rfl: 0 cloNIDine 0.1 MG tablet, Take 1 tablet by mouth 2 times daily., Disp: , Rfl: colchicine 0.6 MG tablet, colchicine 0.6 mg tablet TAKE 1 TABLET BY MOUTH EVERY DAY NEEDED FOR FLARE, Disp: , Rfl: diltiazem 240 MG Cap SR 24HR, Take 1 capsule by mouth 2 times daily., Disp: , Rfl: Docusate 100 MG capsule, Take 1 capsule by mouth 2 times daily. Hold for loose stools., Disp: 60 capsule, Rfl: 0 DULoxetine [address] Particles capsule DR, Take 1 capsule by mouth daily., Disp: , Rfl: ferrous sulfate 325 (65 Fe) MG tablet, Take 1 tablet by mouth 2 times daily., Disp: 60 tablet, Rfl:1 Nmtnrexolca-Zuxlqnxlr-Rejydf (Trelegy Ellipta) 100-62.5-25 MCG/INH Aerosol Powder, breath activatedinhaler, Inhale 1 puff daily., Disp: , Rfl: Folic Acid 800 MCG tablet, Take by mouth daily., Disp: , Rfl: furOSEmide 20 MG tablet, TAKE 1 TABLET BY MOUTH EVERY DAY FOR 90 DAYS, Disp: , Rfl: Loratadine 10 MG tablet, Take 1 tablet by mouth as needed., Disp: , Rfl: omeprazole [address] capsule, Take 1 capsule by mouth daily., Disp: 30 capsule, Rfl: 0 Rosuvastatin 20 MG tablet, Take 1 tablet by mouth daily. am, Disp: , Rfl: Spironolactone 25 MG tablet, Take 1 tablet by mouth daily., Disp: , Rfl: therapeutic multivitamin-minerals tablet, Take 1 tablet by mouth at bedtime., Disp: 30 tablet, Rfl:0 Varenicline Tartrate, Starter, (Chantix Starting Month ) 0.5 MG X 11 & 1 MG X 42 Tab TherapyPack, Take 1 mg by mouth 2 times daily., Disp: , Rfl: oxyCODONE 5 MG tablet, Take one to two tabs every 4-6 hours as needed for severe pain. Wean as tolerated, Disp: 30 tablet, Rfl: 0 Allergies: She has No Known Allergies. [facility] History of Present illness Narrative* Rebecca Odom - 06/25/2022 1:00 PM EDT Ortho Nurse - Established Patient Intake Room#: 4 Date: 06/25/2022 1:01 PM Patient: Sd Rehman MR#: [id number] : 1950 Age: 71 y.o. 2wk R TKA Pt stated some days she has shooting pain that goes away, stated her pain today is a 2/10on the pain scale. Pt was wearing her van hose and in a brace & in a wheelchair at the time of visit. Referring Physician: Vita Joshi APRN-CNP Insurance: Payor: MEDICARE ANTH HMO OR PPO / Plan: MEDICARE ANTHEM HMO OR PPO / Product Type: *NoProduct type* / Chief Complaint Patient presents with Right Knee - Follow-up Visit Vitals Ht 1.575 m (5' 2 ) Wt 102.1 kg (225 lb) BMI 41.15 kg/m Pain Recent Labs Lab Results Component Value Date CRP 9.5 05/15/2022 Lab Results Component Value Date SEDRATE 98 (H) 05/15/2022 Lab Results Component Value Date WBC 17.7 (H) 06/11/2022 HGB 9.5 (L) 06/11/2022 HCT 29.0 (L) 06/11/2022 PLATELET 330 06/11/2022 MCV 95.0 06/11/2022 History Past Medical History: Diagnosis Date Arrhythmia a-fib COPD (chronic obstructive pulmonary disease) Essential hypertension, benign Hyperlipidemia GARETT (obstructive sleep apnea) Renal disease Past Surgical History: Procedure Laterality Date REVISION ARTHROPLASTY KNEE Right 06/09/2022 Laterality: Right; Surgeon: Navin Clark MD; Location: [facility] REPLAC[facility] Bilateral 2007 left in 2006 -right 2008---Dr. Crain APPENDECTOMY BREAST BIOPSY Bilateral TONSILLECTOMY Family History: Her family history includes Bleeding or Clotting Problems in her daughter and mother. Social History: Her reports that she quit smoking about 5 months ago. Her smoking use included cigarettes. She has never used smokeless tobacco. She reports current alcohol use. She reports that she does not use drugs. Outpatient Medications Prior to Visit Medication Sig Dispense Refill Acetaminophen 325 MG tablet Take 2 tablets by mouth every 4 hours as needed for Mild Pain. Do not exceed 4000mg of Tylenol in 24 hour period. 50 tablet 1 albuterol 108 (90 Base) MCG/ACT Aero Soln inhaler albuterol sulfate HFA 90 mcg/actuation aerosol inhaler INHALE 2 PUFFS EVERY 4 HOURS NEEDED FOR SHORTNESS OF BREATH allopurinol 300 MG tablet Take 1 tablet by mouth daily. apixaban 5 MG tablet Take 1 tablet by mouth every 12 hours. This medication is for blood clot prevention 60 tablet 0 cloNIDine 0.1 MG tablet Take 1 tablet by mouth 2 times daily. colchicine 0.6 MG tablet colchicine 0.6 mg tablet TAKE 1 TABLET BY MOUTH EVERY DAY NEEDED FOR FLARE diltiazem 240 MG Cap SR 24HR Take 1 capsule by mouth 2 times daily. Docusate 100 MG capsule Take 1 capsule by mouth 2 times daily. Hold for loose stools. 60 capsule 0 DULoxetine [address] Particles capsule DR Take 1 capsule by mouth daily. ferrous sulfate 325 (65 Fe) MG tablet Take 1 tablet by mouth 2 times daily. 60 tablet 1 Fdmptebuvhn-Fvwoovlfd-Pvpbra (Trelegy Ellipta) 100-62.5-25 MCG/INH Aerosol Powder, breath activatedinhaler Inhale 1 puff daily. Folic Acid 800 MCG tablet Take by mouth daily. furOSEmide 20 MG tablet TAKE 1 TABLET BY MOUTH EVERY DAY FOR 90 DAYS Loratadine 10 MG tablet Take 1 tablet by mouth as needed. omeprazole [address] capsule Take 1 capsule by mouth daily. 30 capsule 0 Rosuvastatin 20 MG tablet Take 1 tablet by mouth daily. am Spironolactone 25 MG tablet Take 1 tablet by mouth daily. therapeutic multivitamin-minerals tablet Take 1 tablet by mouth at bedtime. 30 tablet 0 Varenicline Tartrate, Starter, (Chantix Starting Month Froylan) 0.5 MG X 11 & 1 MG X 42 Tab TherapyPack Take 1 mg by mouth 2 times daily. apixaban 2.5 MG tablet Take 1 tablet by mouth every 12 hours for 5 days. Once complete, begin regimen of Eliquis 5mg twice a day. 10 tablet 0 oxyCODONE 5 MG tablet Take one to two tabs every 4-6 hours as needed for severe pain. Wean as tolerated 30 tablet 0 No facility-administered medications prior to visit. Current Outpatient Medications: Acetaminophen 325 MG tablet, Take 2 tablets by mouth every 4 hours as needed for Mild Pain. Do not exceed 4000mg of Tylenol in 24 hour period., Disp: 50 tablet, Rfl: 1 albuterol 108 (90 Base) MCG/ACT Aero Soln inhaler, albuterol sulfate HFA 90 mcg/actuation aerosol inhaler INHALE 2 PUFFS EVERY 4 HOURS NEEDED FOR SHORTNESS OF BREATH, Disp: , Rfl: allopurinol 300 MG tablet, Take 1 tablet by mouth daily., Disp: , Rfl: apixaban 5 MG tablet, Take 1 tablet by mouth every 12 hours. This medication is for blood clot prevention, Disp: 60 tablet, Rfl: 0 cloNIDine 0.1 MG tablet, Take 1 tablet by mouth 2 times daily., Disp: , Rfl: colchicine 0.6 MG tablet, colchicine 0.6 mg tablet TAKE 1 TABLET BY MOUTH EVERY DAY NEEDED FOR FLARE, Disp: , Rfl: diltiazem 240 MG Cap SR 24HR, Take 1 capsule by mouth 2 times daily., Disp: , Rfl: Docusate 100 MG capsule, Take 1 capsule by mouth 2 times daily. Hold for loose stools., Disp: 60 capsule, Rfl: 0 DULoxetine [address] Particles capsule DR, Take 1 capsule by mouth daily., Disp: , Rfl: ferrous sulfate 325 (65 Fe) MG tablet, Take 1 tablet by mouth 2 times daily., Disp: 60 tablet, Rfl:1 Sjwayhgrfjc-Tozbeutvw-Rbkbqm (Trelegy Ellipta) 100-62.5-25 MCG/INH Aerosol Powder, breath activatedinhaler, Inhale 1 puff daily., Disp: , Rfl: Folic Acid 800 MCG tablet, Take by mouth daily., Disp: , Rfl: furOSEmide 20 MG tablet, TAKE 1 TABLET BY MOUTH EVERY DAY FOR 90 DAYS, Disp: , Rfl: Loratadine 10 MG tablet, Take 1 tablet by mouth as needed., Disp: , Rfl: omeprazole [address] capsule, Take 1 capsule by mouth daily., Disp: 30 capsule, Rfl: 0 Rosuvastatin 20 MG tablet, Take 1 tablet by mouth daily. am, Disp: , Rfl: Spironolactone 25 MG tablet, Take 1 tablet by mouth daily., Disp: , Rfl: therapeutic multivitamin-minerals tablet, Take 1 tablet by mouth at bedtime., Disp: 30 tablet, Rfl:0 Varenicline Tartrate, Starter, (Chantix Starting Month ) 0.5 MG X 11 & 1 MG X 42 Tab TherapyPack, Take 1 mg by mouth 2 times daily., Disp: , Rfl: oxyCODONE 5 MG tablet, Take one to two tabs every 4-6 hours as needed for severe pain. Wean as tolerated, Disp: 30 tablet, Rfl: 0 Allergies: She has No Known Allergies. * Jerilyn Baig - 06/25/2022 1:00 PM EDT HPI: Sd Rehman is 2 weeks s/p right revision TKA. She is happy with her recovery to date. [facility] is[facility] the [facility] where she is receiving PT/OT daily. She is using Eliquis for DVT prophylaxis along with compression stockings. She is using Tylenol as needed for for pain control. She has been maintaining post op instruction of GROM 0-30, TROM brace in place. NWB. Her TROM brace does not appear to be fitting well but she reports compliance to its use. PHYSICAL EXAM: Today on examination she is Ht 1.575 m (5' 2 ) Wt 102.1 kg (225 lb) BMI 41.15 kg/m Smoking Status Former Body mass index is 41.15 kg/m . Pain is reported as 2/10. Incision is healing well without erythema, drainage, induration or evidence of dehiscence, jonah were removed by staff at [facility]. There is area of bruising to the medial aspect region of proximal tibia.There is moderate globalknee swelling. Calves are soft and non tender bilaterally with negative Homans sign. Distal neurovascular exam is intact. ROM is reported as 0-30 by physical therapy, today it is found to be 0-30 not pushing beyond post-op restriction. The examination is stable to varus and valgus stress. DIAGNOSTIC STUDIES/INTERPRETATION: X-rays were reviewed today and reveal Cemented total knee arthroplasty in good position and alignment unchanged from the immediate postop films. I see no evidence of worsening to the periprosthetic fracture of the tibia. Assessment/Plan: 2 weeks postop right TKA. Continue DVT prophylaxis as prescribed. TROM brace was adjust to better fitting position on patient. She tolerated this well. Patient expressed wanting to bathe/shower more thoroughly. I explained therapy and nursing staff atthe [facility] to evaluate ability to do this with protection of her ROM restriction and NWB status. Jolene at the [facility] reports will speak with nursing regarding this. Continue physical therapy- Will advance to 0-40 * today with instruction for PT to advance 10* nextweek if stable and tolerating. Reviewed this with OT staff member of the [facility], as well as sent written orders. Reviewed this with patient and her daughter. She will follow up with us in 2 weeks for clinical and radiological evaluation unless an earlier need should arise. We will discuss further advancement at that time. Dental prophylaxis was prescribed and instructions given. All questions and concerns were addressed at this appointment and the patient expressed understanding. All pertinent portions of the clinical learning support resource room teacher documentation was reviewed and agree. Jerilyn Baig I have reviewed the findings of the clinical learning support resource room teacher and agree with their assessment. Jerilyn Baig I have reviewed the findings of the clinical learning support resource room teacher and agree with their assessment. Jerilyn Baig Ortho Nurse - Established Patient Intake Room#: 4 Date: 06/25/2022 1:01 PM Patient: Sd Rehman MR#: [id number] : 1950 Age: 71 y.o. 2wk R TKA Pt stated some days she has shooting pain that goes away, stated her pain today is a 2/10on the pain scale. Pt was wearing her van hose and in a brace & in a wheelchair at the time of visit. Referring Physician: Vita Joshi APRN-CNP Insurance: Payor: MEDICARE AN[employer]M HMO OR PPO / Plan: MEDICARE [employer] HMO OR PPO / Product Type: *NoProduct type* / Chief Complaint Patient presents with Right Knee - Follow-up Visit Vitals Ht 1.575 m (5' 2 ) Wt 102.1 kg (225 lb) BMI 41.15 kg/m Pain Recent Labs Lab Results Component Value Date CRP 9.5 05/15/2022 Lab Results Component Value Date SEDRATE 98 (H) 05/15/2022 Lab Results Component Value Date WBC 17.7 (H) 06/11/2022 HGB 9.5 (L) 06/11/2022 HCT 29.0 (L) 06/11/2022 PLATELET 330 06/11/2022 MCV 95.0 06/11/2022 History Past Medical History: Diagnosis Date Arrhythmia a-fib COPD (chronic obstructive pulmonary disease) Essential hypertension, benign Hyperlipidemia GARETT (obstructive sleep apnea) Renal disease Past Surgical History: Procedure Laterality Date REVISION ARTHROPLASTY KNEE Right 06/09/2022 Laterality: Right; Surgeon: Navin Clark MD; Location: [facility]EE REPLAC[facility] Bilateral 2006 left in 2006 -right 2008---Dr. Crain APPENDECTOMY BREAST BIOPSY Bilateral TONSILLECTOMY Family History: Her family history includes Bleeding or Clotting Problems in her daughter and mother. Social History: Her reports that she quit smoking about 5 months ago. Her smoking use included cigarettes. She has never used smokeless tobacco. She reports current alcohol use. She reports that she does not use drugs. Outpatient Medications Prior to Visit Medication Sig Dispense Refill Acetaminophen 325 MG tablet Take 2 tablets by mouth every 4 hours as needed for Mild Pain. Do not exceed 4000mg of Tylenol in 24 hour period. 50 tablet 1 albuterol 108 (90 Base) MCG/ACT Aero Soln inhaler albuterol sulfate HFA 90 mcg/actuation aerosol inhaler INHALE 2 PUFFS EVERY 4 HOURS NEEDED FOR SHORTNESS OF BREATH allopurinol 300 MG tablet Take 1 tablet by mouth daily. apixaban 5 MG tablet Take 1 tablet by mouth every 12 hours. This medication is for blood clot prevention 60 tablet 0 cloNIDine 0.1 MG tablet Take 1 tablet by mouth 2 times daily. colchicine 0.6 MG tablet colchicine 0.6 mg tablet TAKE 1 TABLET BY MOUTH EVERY DAY NEEDED FOR FLARE diltiazem 240 MG Cap SR 24HR Take 1 capsule by mouth 2 times daily. Docusate 100 MG capsule Take 1 capsule by mouth 2 times daily. Hold for loose stools. 60 capsule 0 DULoxetine [address] Particles capsule DR Take 1 capsule by mouth daily. ferrous sulfate 325 (65 Fe) MG tablet Take 1 tablet by mouth 2 times daily. 60 tablet 1 Kbblmdkuqrz-Cgbphnznw-Jpcxdu (Trelegy Ellipta) 100-62.5-25 MCG/INH Aerosol Powder, breath activatedinhaler Inhale 1 puff daily. Folic Acid 800 MCG tablet Take by mouth daily. furOSEmide 20 MG tablet TAKE 1 TABLET BY MOUTH EVERY DAY FOR 90 DAYS Loratadine 10 MG tablet Take 1 tablet by mouth as needed. omeprazole [address] capsule Take 1 capsule by mouth daily. 30 capsule 0 Rosuvastatin 20 MG tablet Take 1 tablet by mouth daily. am Spironolactone 25 MG tablet Take 1 tablet by mouth daily. therapeutic multivitamin-minerals tablet Take 1 tablet by mouth at bedtime. 30 tablet 0 Varenicline Tartrate, Starter, (Chantix Starting Month ) 0.5 MG X 11 & 1 MG X 42 Tab TherapyPack Take 1 mg by mouth 2 times daily. apixaban 2.5 MG tablet Take 1 tablet by mouth every 12 hours for 5 days. Once complete, begin regimen of Eliquis 5mg twice a day. 10 tablet 0 oxyCODONE 5 MG tablet Take one to two tabs every 4-6 hours as needed for severe pain. Wean as tolerated 30 tablet 0 No facility-administered medications prior to visit. Current Outpatient Medications: Acetaminophen 325 MG tablet, Take 2 tablets by mouth every 4 hours as needed for Mild Pain. Do not exceed 4000mg of Tylenol in 24 hour period., Disp: 50 tablet, Rfl: 1 albuterol 108 (90 Base) MCG/ACT Aero Soln inhaler, albuterol sulfate HFA 90 mcg/actuation aerosol inhaler INHALE 2 PUFFS EVERY 4 HOURS NEEDED FOR SHORTNESS OF BREATH, Disp: , Rfl: allopurinol 300 MG tablet, Take 1 tablet by mouth daily., Disp: , Rfl: apixaban 5 MG tablet, Take 1 tablet by mouth every 12 hours. This medication is for blood clot prevention, Disp: 60 tablet, Rfl: 0 cloNIDine 0.1 MG tablet, Take 1 tablet by mouth 2 times daily., Disp: , Rfl: colchicine 0.6 MG tablet, colchicine 0.6 mg tablet TAKE 1 TABLET BY MOUTH EVERY DAY NEEDED FOR FLARE, Disp: , Rfl: diltiazem 240 MG Cap SR 24HR, Take 1 capsule by mouth 2 times daily., Disp: , Rfl: Docusate 100 MG capsule, Take 1 capsule by mouth 2 times daily. Hold for loose stools., Disp: 60 capsule, Rfl: 0 DULoxetine [address] Particles capsule DR, Take 1 capsule by mouth daily., Disp: , Rfl: ferrous sulfate 325 (65 Fe) MG tablet, Take 1 tablet by mouth 2 times daily., Disp: 60 tablet, Rfl:1 Yspfqstkwaq-Etqvrshvz-Rjsegq (Trelegy Ellipta) 100-62.5-25 MCG/INH Aerosol Powder, breath activatedinhaler, Inhale 1 puff daily., Disp: , Rfl: Folic Acid 800 MCG tablet, Take by mouth daily., Disp: , Rfl: furOSEmide 20 MG tablet, TAKE 1 TABLET BY MOUTH EVERY DAY FOR 90 DAYS, Disp: , Rfl: Loratadine 10 MG tablet, Take 1 tablet by mouth as needed., Disp: , Rfl: omeprazole [address] capsule, Take 1 capsule by mouth daily., Disp: 30 capsule, Rfl: 0 Rosuvastatin 20 MG tablet, Take 1 tablet by mouth daily. am, Disp: , Rfl: Spironolactone 25 MG tablet, Take 1 tablet by mouth daily., Disp: , Rfl: therapeutic multivitamin-minerals tablet, Take 1 tablet by mouth at bedtime., Disp: 30 tablet, Rfl:0 Varenicline Tartrate, Starter, (Chantix Starting Month ) 0.5 MG X 11 & 1 MG X 42 Tab TherapyPack, Take 1 mg by mouth 2 times daily., Disp: , Rfl: oxyCODONE 5 MG tablet, Take one to two tabs every 4-6 hours as needed for severe pain. Wean as tolerated, Disp: 30 tablet, Rfl: 0 Allergies: She has No Known Allergies. Ortho Nurse - Established Patient Intake Room#: 4 Date: 06/25/2022 1:01 PM Patient: Sd Rehman MR#: [id number] : 1950 Age: 71 y.o. 2wk R TKA Pt stated some days she has shooting pain that goes away, stated her pain today is a 2/10on the pain scale. Pt was wearing her van hose and in a brace & in a wheelchair at the time of visit. Referring Physician: Vita Joshi APRN-CNP Insurance: Payor: MEDICARE ANTHEM HMO OR PPO / Plan: MEDICARE ANTHEM HMO OR PPO / Product Type: *NoProduct type* / Chief Complaint Patient presents with Right Knee - Follow-up Visit Vitals Ht 1.575 m (5' 2 ) Wt 102.1 kg (225 lb) BMI 41.15 kg/m Pain Recent Labs Lab Results Component Value Date CRP 9.5 05/15/2022 Lab Results Component Value Date SEDRATE 98 (H) 05/15/2022 Lab Results Component Value Date WBC 17.7 (H) 06/11/2022 HGB 9.5 (L) 06/11/2022 HCT 29.0 (L) 06/11/2022 PLATELET 330 06/11/2022 MCV 95.0 06/11/2022 History Past Medical History: Diagnosis Date Arrhythmia a-fib COPD (chronic obstructive pulmonary disease) Essential hypertension, benign Hyperlipidemia GARETT (obstructive sleep apnea) Renal disease Past Surgical History: Procedure Laterality Date REVISION ARTHROPLASTY KNEE Right 06/09/2022 Laterality: Right; Surgeon: Navin Clark MD; Location: [facility] K[facility]EE REPLAC[facility] Bilateral 2006 left in 2006 -right 2008---Dr. Crain APPENDECTOMY BREAST BIOPSY Bilateral TONSILLECTOMY Family History: Her family history includes Bleeding or Clotting Problems in her daughter and mother. Social History: Her reports that she quit smoking about 5 months ago. Her smoking use included cigarettes. She has never used smokeless tobacco. She reports current alcohol use. She reports that she does not use drugs. Outpatient Medications Prior to Visit Medication Sig Dispense Refill Acetaminophen 325 MG tablet Take 2 tablets by mouth every 4 hours as needed for Mild Pain. Do not exceed 4000mg of Tylenol in 24 hour period. 50 tablet 1 albuterol 108 (90 Base) MCG/ACT Aero Soln inhaler albuterol sulfate HFA 90 mcg/actuation aerosol inhaler INHALE 2 PUFFS EVERY 4 HOURS NEEDED FOR SHORTNESS OF BREATH allopurinol 300 MG tablet Take 1 tablet by mouth daily. apixaban 5 MG tablet Take 1 tablet by mouth every 12 hours. This medication is for blood clot prevention 60 tablet 0 cloNIDine 0.1 MG tablet Take 1 tablet by mouth 2 times daily. colchicine 0.6 MG tablet colchicine 0.6 mg tablet TAKE 1 TABLET BY MOUTH EVERY DAY NEEDED FOR FLARE diltiazem 240 MG Cap SR 24HR Take 1 capsule by mouth 2 times daily. Docusate 100 MG capsule Take 1 capsule by mouth 2 times daily. Hold for loose stools. 60 capsule 0 DULoxetine [address] Particles capsule DR Take 1 capsule by mouth daily. ferrous sulfate 325 (65 Fe) MG tablet Take 1 tablet by mouth 2 times daily. 60 tablet 1 Jkxcdrfzwdr-Kwlfjjudm-Ryfoqj (Trelegy Ellipta) 100-62.5-25 MCG/INH Aerosol Powder, breath activatedinhaler Inhale 1 puff daily. Folic Acid 800 MCG tablet Take by mouth daily. furOSEmide 20 MG tablet TAKE 1 TABLET BY MOUTH EVERY DAY FOR 90 DAYS Loratadine 10 MG tablet Take 1 tablet by mouth as needed. omeprazole [address] capsule Take 1 capsule by mouth daily. 30 capsule 0 Rosuvastatin 20 MG tablet Take 1 tablet by mouth daily. am Spironolactone 25 MG tablet Take 1 tablet by mouth daily. therapeutic multivitamin-minerals tablet Take 1 tablet by mouth at bedtime. 30 tablet 0 Varenicline Tartrate, Starter, (Chantix Starting Month ) 0.5 MG X 11 & 1 MG X 42 Tab TherapyPack Take 1 mg by mouth 2 times daily. apixaban 2.5 MG tablet Take 1 tablet by mouth every 12 hours for 5 days. Once complete, begin regimen of Eliquis 5mg twice a day. 10 tablet 0 oxyCODONE 5 MG tablet Take one to two tabs every 4-6 hours as needed for severe pain. Wean as tolerated 30 tablet 0 No facility-administered medications prior to visit. Current Outpatient Medications: Acetaminophen 325 MG tablet, Take 2 tablets by mouth every 4 hours as needed for Mild Pain. Do not exceed 4000mg of Tylenol in 24 hour period., Disp: 50 tablet, Rfl: 1 albuterol 108 (90 Base) MCG/ACT Aero Soln inhaler, albuterol sulfate HFA 90 mcg/actuation aerosol inhaler INHALE 2 PUFFS EVERY 4 HOURS NEEDED FOR SHORTNESS OF BREATH, Disp: , Rfl: allopurinol 300 MG tablet, Take 1 tablet by mouth daily., Disp: , Rfl: apixaban 5 MG tablet, Take 1 tablet by mouth every 12 hours. This medication is for blood clot prevention, Disp: 60 tablet, Rfl: 0 cloNIDine 0.1 MG tablet, Take 1 tablet by mouth 2 times daily., Disp: , Rfl: colchicine 0.6 MG tablet, colchicine 0.6 mg tablet TAKE 1 TABLET BY MOUTH EVERY DAY NEEDED FOR FLARE, Disp: , Rfl: diltiazem 240 MG Cap SR 24HR, Take 1 capsule by mouth 2 times daily., Disp: , Rfl: Docusate 100 MG capsule, Take 1 capsule by mouth 2 times daily. Hold for loose stools., Disp: 60 capsule, Rfl: 0 DULoxetine [address] Particles capsule DR, Take 1 capsule by mouth daily., Disp: , Rfl: ferrous sulfate 325 (65 Fe) MG tablet, Take 1 tablet by mouth 2 times daily., Disp: 60 tablet, Rfl:1 Iekjusanxrf-Ncnrfuzop-Rrqvzi (Trelegy Ellipta) 100-62.5-25 MCG/INH Aerosol Powder, breath activatedinhaler, Inhale 1 puff daily., Disp: , Rfl: Folic Acid 800 MCG tablet, Take by mouth daily., Disp: , Rfl: furOSEmide 20 MG tablet, TAKE 1 TABLET BY MOUTH EVERY DAY FOR 90 DAYS, Disp: , Rfl: Loratadine 10 MG tablet, Take 1 tablet by mouth as needed., Disp: , Rfl: omeprazole [address] capsule, Take 1 capsule by mouth daily., Disp: 30 capsule, Rfl: 0 Rosuvastatin 20 MG tablet, Take 1 tablet by mouth daily. am, Disp: , Rfl: Spironolactone 25 MG tablet, Take 1 tablet by mouth daily., Disp: , Rfl: therapeutic multivitamin-minerals tablet, Take 1 tablet by mouth at bedtime., Disp: 30 tablet, Rfl:0 Varenicline Tartrate, Starter, (Chantix Starting Month Froylan) 0.5 MG X 11 & 1 MG X 42 Tab TherapyPack, Take 1 mg by mouth 2 times daily., Disp: , Rfl: oxyCODONE 5 MG tablet, Take one to two tabs every 4-6 hours as needed for severe pain. Wean as tolerated, Disp: 30 tablet, Rfl: 0 Allergies: She has No Known Allergies. [facility]* Nursing Notes - Erum Orozco RN - 06/11/2022 6:03 PM EDT Called to give report to facility nurse x3 and was forwarded to a , then the nurses station and no one picks up. All AVS info and discharge instructions were faxed to facility and given to EMS to provide to facility including narc scripts. Pts IV removed. [facility]03-22-[facility]23 Miscellaneous Notes* Nursing Notes - Erum Orozco RN - 06/11/2022 6:03 PM EDT Called to give report to facility nurse x3 and was forwarded to a VM, then the nurses station and no one picks up. All AVS info and discharge instructions were faxed to facility and given to EMS to provide to facility including narc scripts. Pts IV removed. * Nursing Notes - KO Lucio - 06/11/2022 5:20 PM EDT [facility] arrives at this time. * Nursing Notes - KO Lucio - 06/11/2022 4:09 PM EDT Called [facility] at this time for transport to [facility]. ETA [id number] notified. * Plan of Care - Erum Orozco RN - 06/11/2022 3:40 PM EDT Problem: Patient Care Overview Goal: Plan of Care Review Outcome: Adequate for Discharge Goal: Individualization & Mutuality Outcome: Adequate for Discharge Goal: Discharge Needs Assessment Outcome: Adequate for Discharge Goal: Interdisciplinary Rounds/Family Conf Outcome: Adequate for Discharge Problem: Knee Arthroplasty (Total, Partial) (Adult) Goal: Signs and Symptoms of Listed Potential Problems Will be Absent, Minimized or Managed (Knee Arthroplasty) Description: Signs and symptoms of listed potential problems will be absent, minimized or managed by discharge/transition of care (reference Knee Arthroplasty (Total, Partial) (Adult) CPG). Outcome: Adequate for Discharge Goal: Anesthesia/Sedation Recovery Outcome: Adequate for Discharge Problem: Pain, Acute (Adult) Goal: Identify Related Risk Factors and Signs and Symptoms Description: Related risk factors and signs and symptoms are identified upon initiation of Human Response Clinical Practice Guideline (CPG) Outcome: Adequate for Discharge Goal: Acceptable Pain Control/Comfort Level Description: Patient will demonstrate the desired outcomes by discharge/transition of care. Outcome: Adequate for Discharge Problem: Skin Integrity Impairment, Risk/Actual (Adult) Goal: Identify Related Risk Factors and Signs and Symptoms Description: Related risk factors and signs and symptoms are identified upon initiation of Human Response Clinical Practice Guideline (CPG) Outcome: Adequate for Discharge Goal: Skin Integrity/Wound Healing Description: Patient will demonstrate the desired outcomes by discharge/transition of care. Outcome: Adequate for Discharge Problem: Activity Intolerance (Adult) Goal: Activity Tolerance Description: Patient will demonstrate the desired outcomes by discharge/transition of care. 1. Pt will complete LB dressing mod assist x1 2. Pt will complete sponge bathing SBA for UB, mod assist for LB 3. Pt will complete toileting to bathroom commode mod assist x1 4. Pt will complete hygiene/grooming sitting up in chair set up 5. Pt will complete UB dressing independent Robyn Almazan OT 06/09/2022 7:08 PM Outcome: Adequate for Discharge * Nursing Notes - Carley Miller RN - 06/11/2022 4:31 AM EDT Pt assessment remains unchanged with any exceptions noted in flowsheets. Pt c/o 5-6/10 pain after getting up to use the BSC. Medication given- see MAR. Ice pack changed and applied to R. Knee. Foot pumps on. TROM in place. Denies any further needs at this time. Call light within reach. * Nursing Notes - Carley Miller RN - 06/11/2022 2:50 AM EDT Pt assessment remains unchanged with any exceptions noted in flowsheets. Pt is resting in bed with CPAP on. Ice pack changed and applied to R. Knee. Foot pumps on. Denies any pain or needs at this time. Call light within reach. * Nursing Notes - Carley Miller RN - 06/10/2022 9:43 PM EDT Pt assessment complete. POC reviewed with pt. Ice pack changed and applied to R. Knee. Foot pumps on. TROM in place. CPAP on. Denies any pain or needs at this time. Bed alarm set. Call light within reach. * Therapy Note - Elena Langley RRT - 06/10/2022 7:38 PM EDT Paper signed for pt to use home CPAP * Nursing Notes - Prerna Holden RN - 06/10/2022 1:05 PM EDT Assessment is complete and remains unchanged from previous at this time with any exceptions noted in the flowsheet. Patient denies further needs and is left with call light and personals in reach. * Certification - Navin Clark MD - 06/10/2022 6:40 AM EDT I certify that this patient requires inpatient services at this time. Patient is having a Medicare Inpatient Only procedure. Plans for post hospitalization care will be determined in the discharge planning process with social insurance administrator and the multidisciplinary team. * Nursing Notes - Carley Miller RN - 06/10/2022 4:45 AM EDT Pt assessment remains unchanged with any exceptions noted in flowsheets. Ice pack changed and applied to R. Knee. Foot pumps on. TROM in place. Denies any pain or needs at this time. Call light within reach. * Nursing Notes - Carley Miller RN - 06/09/2022 11:01 PM EDT Pt assessment remains unchanged with any exceptions noted in flowsheets. Pt states pain is 2/10 andtolerable. Ice pack changed and applied to R. Knee. TROM in place. Foot pumps on. Denies any needs at this time. Call light within reach. Bed alarm set. * Nursing Notes - Carley Miller RN - 06/09/2022 10:00 PM EDT Pt refuses to wear CPAP d/t loud noise and unable to sleep. Pt on RA and O2 sat is 92%. * Nursing Notes - Carley Miller RN - 06/09/2022 8:17 PM EDT Pt assessment complete. POC reviewed with pt. Pt c/o 6/10 pain to R. Knee. Medication given- see MAY. TROM in place. Ice pack changed and applied to R. Knee. Foot pumps on. Bed alarm set. Denies any further needs at this time. Call light within reach. * Nursing Notes - Carley Miller RN - 06/09/2022 8:00 PM EDT RT states pt has her own trilogy and albuterol breathing treatments with her and that the pt would like to use her own breathing treatment. Messaged Dr. Henderson to ask if pt is okay to use her own breathing treatment medications and if he would like to discontinue ordered Duonebs. Dr. Henderson states this is okay with him. * Op Note - Navin Clark MD - 06/09/2022 7:52 PM EDT DATE OF PROCEDURE: June 09, 2022 ATTENDING PHYSICIAN: Navin Clark M.D. WEBSPHERE PROCESS SERVER DEVELOPER: Jerilyn Baig CNP PREOPERATIVE DIAGNOSIS: 1. 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 2. Obesity, increased BMI of 43. POSTOPERATIVE DIAGNOSIS: 1. Aseptic loosening, cemented bonding, right total knee arthroplasty. 2. Periprosthetic tibial plateau fracture 3. Obesity, increased BMI of 43. PROCEDURES PERFORMED: 1. Revision both components right total knee arthroplasty with modifier for increased BMI. 2. Periarticular injection right knee. 3. Autologous bone grafting to periprosthetic tibial plateau, femur. 4. Autologous bone grafting of distal femoral defect, 5 x 10 mm. 5. Periarticular injection. 6. Placement of continuous catheter adductor canal right knee. ANESTHESIA: Per anesthesiologist. ANESTHESIOLOGIST: Per record. ESTIMATED BLOOD LOSS: 25 mL COMPLICATIONS: Extension of periprosthetic tibial plateau fracture. INTRAVENOUS FLUIDS: Adequate. SPECIMENS: None. INSTRUMENTATION USED: DePuy Attune size 3 right revision CRS femoral component with a 4 mm distal medial, 4 mm distal lateral augment with a 12/60 stem and a 4 mm off-set adapter with a size 2 revision tibial component with a size 10 x 60 tibial stem, size 3 rotated platform 60 mm thick polyethylene and a LifeNet moldable demineralized bone fiber package. INDICATIONS: Sd is a 71 year-old female with a history of previous total knee arthroplasty with chronic pain, instability and preoperative workup concerning for loosening of her prosthetic knee,septic vs aseptic in nature. The complex nature of the surgery and the risks, benefits and alternatives fully explained to she and her family. She is in agreement with the treatment plan. She is therefore scheduled for the procedure for which she appears today. DESCRIPTION OF THE PROCEDURE: Upon arrival to the operating room she was placed supine on the operative table. General anesthetic was induced. A Ann catheter was placed under sterile conditions. The right lower extremity was then elevated and prepped and draped in a sterile standard fashion. A proper time-out was performed. I began by utilizing the previous incision, extended it superiorly and inferiorly as necessary, came down through an extensive amount of subcutaneous fat over the knee itself. I performed a medial parapatellar arthrotomy, and coming through to the knee I encountered a significant synovial reaction.There was sterile fluid, but the base of the synovial area itself was essentially a milky colored tissue. There was significant synovitis of this tissue. A complete synovectomy was performed on the anterior mediolateral side. The gutters were reestablished. There was obvious loosening and motion ofthe patella component, the tibial component, and at this point then the previous polyethylene was re moved. The knee was flexed. Exposure was gained of the distal femur. A combination of osteotomes were used to mobilize around it. This was removed. Underneath was a cyst on the distal femur as previously described. This was taken down to a healthy bleeding bone base. The posterior flexion space wasthen opened up with lamina e business manager. A posterior synovectomy was performed. The tibia was subluxed forward. The tibial component was grossly loosened and removed without complication. However, in removal of the tibial component, there was evidence of a severe tibial defect posteriorly, medially, approximately 10 x 10 x 10. There was fracture and comminution laterally in the posterolateral corner of the tibial plateau and severe osteolysis of the remaining proximal tibia. The cement mantle itself was extremely interdigitated into an otherwise small proximal tibia. Great care was used to removethis. A proximal medial fracture extended at this stage, but was otherwise was contained at around 10-15 mm in length. Once this was done, the knee was brought into extension. The knee was thoroughlyirrigated and I then turned my attention to the tibia. The tibia, now reexposed, was reamed up to a size 11. The 10 had excellent cortical chatter. Given the bone loss and need for constraint, I opted for the sleeve-based system. The proximal reamer was used. I then broached up to a 29 sleeve. This had excellent fit and fill. The periprosthetic medially-based fracture was stable at this point. At this point, then, I cut the proximal tibial plateau inline with the sleeve which was otherwise in line with mechanical and anatomic axis of the tibia. Given the femoral sizing between 3 and 4, I chose a size 2 tibia which ultimately optimized coverage. This was rotated to the medial one-third of the tibial tuburcle. The trial was placed and upon further impacting this trial component I had excellent press-fit, but the fracture continued down the proximal medial tibial plateau, approximately 4 cm below the joint line, opening up proximally 1/16 distally to 1/8 of an inch proximally. However, the entire construct had excellent stability, so I proce eded at this point with the distal femur. With the distal femur now reexposed, given the very small nature of the femoral bone as well as thethin bone in general, I opted to not place a sleeve in the femur. The bone itself was otherwise supportive enough for standard revision instrumentation, so I reamed up to a size 13 and I chose a size12. I rechecked my 5 degree distal femoral valgus cut, and I needed a 4 mm augment to mediolaterally. I marked off the epicondylar axis. I then initially sized it to a size 4, but felt that this was too large, with regards to overall size and flexion/extension balance. I downsized it to a size 3. Ishifted it 4 mm posteriorly to close down the gap anteriorly and allow a flush fit. The 4:1 cutting[address] was [address] place. The cuts were performed. Instrumentation was removed. The trial component was placed. The knee was reduced, and I ultimately settled on a size 16 polyethylene as this optimized range of motion, balance and instability, 0 to 120, no instability or spin-out on the polyethylene. At this point, the patella was inspected, and I was able to easily pass a Bovie blade underneath it. I uses an oscillating saw to remove it. There was koshiynz-fa-wprpxz osteolysis on the medial sideof the patella with a defect of around 6 x 6 x 4 mm. The peg holes were removed. I sized the previous patella to a 35. I redrilled the holes. The 35 had full coverage of the remaining patella and thetrial fit securely. It demonstrated unchanged performance. At this point, the trial components were removed. The knee was brought out to extension. I palpatedposteriorly. I did not see any visible evidence of oozing or bleeding. The knee was thoroughly irrigated, cleaned, dried and the final components were assembled on the back table. They were then cemented in, starting first with the tibia, cemented only at the level of the joint line. Impaction of the tibial component was controlled by the medial tibial periprosthetic split, taking great care not to extend this fracture and distally the split was only minimally opened at this stage. The femoral component was cemented in place. The knee was brought into extension with initially a 14 polyethylene while the patella was cemented. The periarticular injection was administered. Once complete polymerization had occurred, the tourniquet was let down. Hemostasis was obtained. I re-trialed the knee and I was pleased with the performance of the 16 as I felt this optimized range of motion, balance and instability. There was no instability or spin-out of the polyethylene with this construct and anatomic tracking of the patella. With the final polyethylene in place, the knee was irrigated, soaked with Betadine and irrigated further. I then took a combination of bone from the box cut, which I then minced up into smaller pieces and mixed it with the demineralized bone matrix. I then used a bone tamp and then pressed this into the opening of the proximal medial tibial paraprosthetic fracture as well as the defect on the distal femur anteromedial to the flange itself. This allowed complete coverage of the prosthetic and graftingof the defects on both sides. At this point, I turned my attention toward wound closure. The wound was irrigated, cleaned and closed with a 1 Vicryl around the pole of the patella and oversewn with #2 Quill, multiple layers of 0 Vicryl and 0 Quill for the subcuticular layer and jonah for the skin. Extremity was cleansed. Sterile dressing was applied. A hinge knee brace was applied over this. The patient was awakened from the anesthetic, extubated and taken to the postoperative careunit in stable condition. POSTOPERATIVE PLAN OF CARE: 1. We will plan on non weight bearing for 6 weeks. 2. We will plan for 0 to 30 range of motion in hinged knee brace until the first postoperative visit assuming radiographic integrity. We will likely advance this 10 to 15 degrees per week. 3. DVT, both mechanical and chemical. 4. Antibiotics 24 hours postoperatively. We will follow with postoperative cultures. 5. Follow up in the office in 2 weeks. Staple removal in 10-14 days. ATTENDING/ ASSISTING PARTICIPATION: This operation could not have been safely performed (without compromising the technical results or length of the procedure) without the assistance of a skilled surgical instrument maker. A surgical instrument maker was medically necessary for positioning, retraction and instrum entation. * Nursing Notes - Prerna Holden RN - 06/09/2022 5:19 PM EDT Patient arrives back to room 3755 at this time. Report received. Patient complains of a slight acheto her right knee but states this is tolerable. Ice in place. TROM in place. Onq unclamped at 2ml/hr. Dressing to right knee dry and intact. Hemovac draining. IV infusing without difficulty. Pulses palpable. Otherwise assessment is unchanged from previous. Post-op vitals started, tele applied. Menuprovided with ice water and ice chips. Call light and personals in reach. Will monitor. * Brief Op Note - Jerilyn Baig - 06/09/2022 4:28 PM EDT POST OPERATIVE/PROCEDURE NOTE Sd Rehman 71 y.o. female [id number] SURGEON Surgeon(s) and Role: * Navin Clark MD - Primary WEBSPHERE PROCESS SERVER DEVELOPER Jerilyn Baig ANESTHESIOLOGIST INSTRUCTIONAL MATERIAL DIRECTOR: Micha Bailey APRN-INSTRUCTIONAL MATERIAL DIRECTOR SURGICAL STAFF Storage Battery Charger: Jo Downs, DEWAYNE; Nicole Swanson, DEWAYNE; Alon Duke, DEWAYNE; Anabelle Vasquez RN Nurse Practitioner: Jerilyn Baig Scrub Person: Gordon Burnett RN; Ciara Boyd LPN; Dannielle Farnsworth RN Manifest Clerk: Yoshi Hernandez LPN PROCEDURE PERFORMED Procedure(s) (LRB): REVISION ARTHROPLASTY KNEE (Right) Periarticular injection right knee Right adductor canal catheter placement PRIMARY CLOSURE yes ANESTHESIA (type of) General ESTIMATED BLOOD LOSS 50ml DRAINS MED HV BLOOD PRODUCTS None PRE OPERATIVE DIAGNOSIS 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 Item Serial No. Rn Burn Lot No. LRB No. Used Action PALACOS R & G BONE CEMENT HIGH-VISCOSITY WITH GENTAMICIN - [id number] PALACOS R & G BONE CEMENT HIGH-VISCOSITY WITH GENTAMICIN [id number] Right 1 Implanted PALACOS R & G BONE CEMENT HIGH-VISCOSITY WITH GENTAMICIN - [id number] PALACOS R & G BONE CEMENT HIGH-VISCOSITY WITH GENTAMICIN [id number] Right 1 Implanted PALACOS R & G BONE CEMENT HIGH-VISCOSITY WITH GENTAMICIN - [id number] PALACOS R & G BONE CEMENT HIGH-VISCOSITY WITH GENTAMICIN [id number] Right 1 Implanted ATTUNE knee system revision tibial base rotating platform size 2 cemented [employer] [id number] Right 1 Implanted Attune knee system revision tibial sleeve porocoat partially coated 29mm [employer] [id number] Right 1 Implanted Attune Knee System revision Pressfit stem 12mm x 60mm [employer] [id number] Right 1 Implanted Attune Knee system revision Pressfit Stem 10mm x 60mm [employer] [id number] Right 1 Implanted Attune knee system Revision CRS Femoral size 3 Right Cemented [employer] [id number] Right 1Implanted Attune Patella Medialized Dome 35mm Cemented AOX [employer] [id number] Right 1 Implanted Attune Knee system Revision Distal femoral AUgment size 3 4mm cemented [employer] [id number] Right 1 Implanted Attune knee system revision Distal femoral augment size 3 4mm Cemented [employer] [id number] Right 1 Implanted Attune knee system revision offset stem adaptor 4mm [employer] [id number] Right 1 Implanted Moldable demineralized fibers [employer] Right 1 Implanted Attune Knee system Revision CRS Rotating Platform Insert size 3 16mm AOX [employer] [id number] Right 1 Implanted SPECIMENS ID Type Source Tests Collected by Time Destination A : right knee incisional fluid (1-2) Surgical Wound SURGICAL WOUND FUNGUS CULTURE, ANAEROBE CULTURE, BACTERIAL CULTURE AND DIRECT SMEAR, LESION, TISSUE, DEVICE Navin Clark MD 06/09/2022 1403 B : right knee medial synovium (1-3) Surgical Wound SURGICAL WOUND FUNGUS CULTURE, ACID FAST CULTURE, ANAEROBE CULTURE, BACTERIAL CULTURE AND DIRECT SMEAR, LESION, TISSUE, DEVICE Navin Clark MD 06/09/2022 1408 C : right knee lateral synovium (1-3) Surgical Wound SURGICAL WOUND FUNGUS CULTURE, ACID FAST CULTURE, ANAEROBE CULTURE, BACTERIAL CULTURE AND DIRECT SMEAR, LESION, TISSUE, DEVICE Navin Clark MD 06/09/2022 1410 Jerilyn Ferraro Safia June 09, 2022 4:28 PM * Certification - Perry Henderson MD - 06/09/2022 11:54 AM EDT I certify that this patient requires inpatient services at this time. I anticipate the expected length of stay will include at least two midnights. Inpatient services are due to the following medicalconcerns need for PT,OT, and medical management following hospital stay for Right knee revision. Plans for post hospitalization care will be discharge to home with home health. * Nursing Notes - Angelina Rick RN - 05/15/2022 1:58 PM EST Patient was assessed in [facility] on 05/15/2022 Met with patient for follow up after surgery to discuss discharge plan. Patient has a walker and denies any equipment needs at this time. Patient states that she is currently independent. Patient denies having a living will or DPO. Patient states that they have multiple family members willing to assist after surgery. Patient requesting to use [facility] home health upon discharge. 05/15/22 0357 Information Source Information Source patient Information Source Name Sd Sharee Contact Information Application Assistant/SW Added to Care Team Yes This Demolition Crane Operator is Primary Application Assistant/SW Yes Application Assistant Name Angelina Rick RN Case Manager's Living Environment Lives With alone Living Arrangements house (Pt states she lives in a two story home.) Provides Primary Care For no one Primary Care Provided By self Support System Immediate family Able to Return to Prior Arrangements yes Employment/Financial Employed? Retired Employment/Financial Concerns no Source Of Income none Financial Concerns none Cognitive/Perceptual/Developmental Current Mental Status/Cognitive Functioning no deficits noted Emotional/Psychological Mental Health Conditions/Symptoms denies Referral Information Referral Source outpatient staff: outpatient clinic Patient denies any other questions or needs at this time. [facility] Note* Nursing Notes - KO Lucio - 06/11/2022 5:20 PM EDT [facility] arrives at this time. [facility] History of Present illness Narrative* Augustina Mayer RN - 06/11/2022 4:45 PM EDT HENS completed, negative COVID test and updated referral information faxed to [facility]. * Augustina Mayer RN - 06/11/2022 4:21 PM EDT Gordon at [facility] updated with ETA for transport. Daughter, Jacy, called to update with time oftransport. Patient updated with time of transport, also updated that post-op appointment was changed from 3 weeks to 2 weeks. * Augustina Mayer RN - 06/11/2022 3:44 PM EDT Update received from Gordon from [facility] at [place] that patient has been approved and can come today. Informed that transport will need to be set up and will update when we have a time arranged. Patient updated and questions answered. Patient requests that her daughter, Jacy, be called with anupdate. Daughter updated, will inform of transport time when arranged. Dr. Henderson updated regarding approval for SNF. * Robyn Almazan OT - 06/11/2022 3:02 PM EDT 06/11/22 1300 Time In/Out Time In 1300 Subjective RN Approved Intervention as tolerated Existing Precautions/Restrictions fall;weight bearing (NWB in right LE, TROM brace 0-30 degrees) Subjective Reports Pt sitting up in chair agreeable to session Cognitive Status Examination Orientation Status (Cognition) oriented x 4 Level of Consciousness alert Able to Follow Commands (Communication) WFL Personal Safety and Judgment intact Clinical Impression Today's Treatment Included Pt complete oral and facial hygiene set up sitting in chair, transfer toBSC min assist x2, max assist x2 to pull pants down, patient complete jennifer area hygiene SBA. Pt complete sit to stand min assist x2 and max assist to pull pants over bilateral hips with instruction on walker placement when completing transfer back to recliner chair. Pt instructed on B UE exercises completing with 1# dumbbell, patient has decreased ROM in left shoulder. Pt instructed on exercises to focus on and complete during the day to improve UE to assist with NWB during mobility. Pt instructed on chair push ups with patient reporting understanding. Pt has call light in reach and ice pack donned upon exit * Semaj Pierce PTA - 06/11/2022 10:55 AM EDT 06/11/22 1004 Time In/Out Time In 1004 Time Out 1042 Total Visit Time 38 minutes Subjective RN Approved Intervention as tolerated Existing Precautions/Restrictions fall;weight bearing (NWB on L LE, TROM 0-30) Subjective Reports Pt lying in bed upon arrival this session. Pt agreeable for therapy and pt states 3-4/10 pain in R knee. Cognitive Status Examination Orientation Status (Cognition) oriented x 4 Level of Consciousness alert;cooperative Able to Follow Commands (Communication) WFL Personal Safety and Judgment intact General Pain Documentation (Adult, OB, Peds) Presence of Pain complains of pain/discomfort Pain Location knee, right Pain Management Interventions cold application Select Pain Scale (3-4/10) Objective Therapeutic Interventions Pt lying in bed upon arrival this sessoin. Pt agreeable for therapy and pt requetsing to use BSC. Pt began with bed mobility transfer from lying supine to sitting up at EOB with Rajan x1 to support R LE during transfer. Pt able to support self once sitting up at EOB. BSC placed next to bedsdie and then pt completed STS to FWW, Rajan x2 to initiate transfer. Pt able to turnpivot on L LE and shuffle step with VCs for proper seqeuncing with maintianing NWB on R LE. VCs forproper hand placement on rails of BSC as pt transfered to seated position on commode. Pt able to void and then pt completed STS from BSC to walker with Rajan x1 and CHIEF TELEPHONE OPERATOR assisting pt with pericare andlower body dressing. Pt then able to turn and pivot with same technique before sitting down in bedside chair. Pt able to reposition self further back into chair. Pt with extended rest break with LEs elevated in bedside chair. Pt then completed protocol exercises including ankle pumps, QS, GS, and gentle heel slides to approx 25-30 degrees only on R LE with ROM brace locked from 0-30. Pt remained sitting in bedside chair with LEs elevated and call light left within reach. Bed Mobility Skill: Supine to Sit, Rehab Eval Level of [place]: Supine/Sit minimum assist (75% patients effort) Physical Assist/Nonphysical Assist: Supine/Sit 1 person assist Transfer Skill: Sit To Stand, Rehab Eval [place] (Sit-Stand Transfers) minimum assist (75% patient effort) Physical Assist/Nonphysical Assist: Sit/Stand 1 person + 1 person to manage equipment Weight-Bearing Restrictions: Sit/Stand nonweight-bearing Assistive Device For Transfer: Sit/Stand 2 wheeled walker Gait Skills, PT Eval Level of [place]: Gait minimum assist (75% patients effort) Physical Assist/Nonphysical Assist: Gait 2 person assist Weight-Bearing Restrictions: Gait nonweight-bearing Assistive Device For Transfer: Gait 2 wheeled walker Gait Distance (bed to BSC, BSC to chair) Gait Analysis, PT Eval Gait Pattern Used swing-to gait Stair Negotiation [place] Level: Stair Negotiation unable to assess Plan Plan for next visit Cont with protocol ex, gentle ROM 0-30 only, and mobility as able Maintain frequency yes * Augustina Mayer RN - 06/11/2022 10:50 AM EDT Spoke with Gordon at [facility] [place] for an update regarding insurance authorization. She states that she has not yet heard back from [place]. She will be calling at 11:30 to check on auth at the 24 hour point and will call back when she has an update. * Vita Joshi APRN-TAB CUTTER - 06/11/2022 8:32 AM EDT Total Joint Progress Note P O DAY # 1 PROCEDURE: r tka revision SUBJECTIVE: No new symptoms or complaints PAIN RATIN/10 OBJECTIVE: Lab Results Component Value Date WBC 17.7 (H) 06/11/2022 HGB 9.5 (L) 06/11/2022 HGB 10.5 (L) 06/10/2022 HGB 12.5 05/15/2022 HCT 29.0 (L) 06/11/2022 HCT 32.2 (L) 06/10/2022 HCT 38.2 05/15/2022 PLATELET 330 06/11/2022 MCV 95.0 06/11/2022 Lab Results Component Value Date SODIUM 132 (L) 06/11/2022 POTASSIUM 4.2 06/11/2022 CHLORIDE 99 06/11/2022 CO2 21 (L) 06/11/2022 BUN 36 (H) 06/11/2022 BUN 30 (H) 06/10/2022 BUN 35 (H) 05/15/2022 CREATSERUM 1.48 (H) 06/11/2022 CREATSERUM 1.40 (H) 06/10/2022 CREATSERUM 1.70 (H) 05/15/2022 GLUCOSE 137 (H) 06/11/2022 Vital Signs: Vitals: 06/11/22 0712 BP: 142/68 Pulse: 63 Resp: 18 Temp: 97.6 F (36.4 C) Patient is alert and oriented times three. Abdomen: Soft, non-tender without organomegaly and bowel sounds are active Vascular: Dorsalis pedis/posterior tibial pulses RIGHT/LEFT/BILATERAL: Bilateral NORMAL / ABNORMAL (RESULT): Normal Neuro: Intact/deficit: intact to light touch Wound Appearance: DESCRIPTION; WOUND: incision Erythema: PRESENT OR ABSENT: absent Drainage none Dressing: Clean/dry/intact DVT Screening Exam: Calves soft/non-tender Van hose: PRESENT OR ABSENT: present Foot pumps/ SCD's: PRESENT OR ABSENT: present Hemovac Drain Output: na mL/last shift Physical Therapy: ROM: 0-30 degrees Gait Distance: 5 Feet: ASSESSMENT: sp r tka revision pod 2 PLAN: 1. PT/OT 2. DVT prophylaxis 3. Discharge planning DISCHARGE PLANNING: plans; post hospital: SEE SS NOTES * Semaj Pierce, SCRAPER LOADER OPERATOR - 06/10/2022 5:47 PM EDT 06/10/22 1716 Time In/Out Time In 1716 Time Out 1731 Total Visit Time 15 minutes Subjective RN Approved Intervention as tolerated Existing Precautions/Restrictions fall;weight bearing (NWB on L LE, Trom brace 0-30) Subjective Reports Pt lying in bed upon arrival this session. Pt requetsing to use BSC at this time. Cognitive Status Examination Orientation Status (Cognition) oriented x 4 Level of Consciousness alert Able to Follow Commands (Communication) WFL Personal Safety and Judgment intact General Pain Documentation (Adult, OB, Peds) Presence of Pain denies pain/discomfort Objective Therapeutic Interventions Pt lying in bed upon arrival this session. Pt began with bed mobility transfer from llying supine to sitting up at EOB with Rajan x1 supporting R LE throughout transfer. Pt then completed STS with Rajan x1 and pt then able to turn and pivot with walker with lots of VCs for proper sequencing to maintain NWB on R LE and for proper hand placement to reach back for rails of commode to assist with lowering self to seated positoin. Pt able to void and provide self pericare. Ptthen compelted STS to FWW and this SCRAPER LOADER OPERATOR and CHIEF TELEPHONE OPERATOR assisting pt with lower bidy dressing and then pt transfered back to sitting at EOB. Rajan x2 for sit to supine for R LE support and maxA x2 for repositioning pt towards HOB. Pt remained lying in bed with foot pumps in place, ice pack applied to R knee, and call light left within reach. Bed Mobility Skill: Supine to Sit, Rehab Eval Level of [place]: Supine/Sit minimum assist (75% patients effort) Physical Assist/Nonphysical Assist: Supine/Sit 1 person assist Transfer Skill: Sit To Stand, Rehab Eval [place] (Sit-Stand Transfers) minimum assist (75% patient effort) Physical Assist/Nonphysical Assist: Sit/Stand 1 person assist Weight-Bearing Restrictions: Sit/Stand nonweight-bearing Assistive Device For Transfer: Sit/Stand 2 wheeled walker Gait Skills, PT Eval Level of [place]: Gait minimum assist (75% patients effort) Physical Assist/Nonphysical Assist: Gait 2 person assist Weight-Bearing Restrictions: Gait nonweight-bearing Assistive Device For Transfer: Gait 2 wheeled walker Gait Distance (bed to BSC, BSC to bed) Gait Analysis, PT Eval Gait Pattern Used swing-to gait Stair Negotiation [place] Level: Stair Negotiation unable to assess Plan Plan for next visit Cont with protocol ex,gentle ROM 0-30, and mobility Maintain frequency yes * Robyn Almazan, OT - 06/10/2022 5:13 PM EDT 06/10/22 1310 Time In/Out Time In 1310 Time Out 1408 Total Visit Time 58 minutes Total Treatment Time (skilled, billable minutes) (plus 15 more minutes prior) Subjective RN Approved Intervention as tolerated Existing Precautions/Restrictions fall;weight bearing (NWB in right LE, TROM brace 0-30) Subjective Reports Pt up in chair agreeable to session Cognitive Status Examination Orientation Status (Cognition) oriented x 4 Level of Consciousness alert Able to Follow Commands (Communication) WFL Personal Safety and Judgment intact General Pain Documentation (Adult, OB, Peds) Presence of Pain complains of pain/discomfort Pain Location knee, right Pain Management Interventions cold application Select Pain Scale (3/10) Transfer Skill: Sit To Stand, Rehab Eval [place] (Sit-Stand Transfers) contact guard Physical Assist/Nonphysical Assist: Sit/Stand 2 person assist Weight-Bearing Restrictions: Sit/Stand nonweight-bearing Assistive Device For Transfer: Sit/Stand 2 wheeled walker Clinical Impression Today's Treatment Included Pt initially requesting to use the bathroom, provide instructed on sequencing for transfer to [facility] completing with CGA-min assist x2. Pt complete pant management mod assist,jennifer area hygiene SBA. Pt instructed on doffing pants and donning underwear and shorts using insurance salesperson, patient complete sit to stand for jennifer area sponge bathing total assist, return to sitting to rest, sit to stand min assist x2 to pull pants up max assist x1, transfer back to recliner chair with decreased carry over on instructions and experiencing loss of balance with mod assist to correct and sit on chair. Upon return patient complete sponge bathing task sitting in chair set up UB and changeUB shirt. max assist LB with instruction on maintaining right LE in neutral and assistance from another person for sponge bathing leg. Pt doff sock and VAN hose on left LE with dressing stick SBA. total assist for right LE to keep leg straight and brace management. Brace and VAN hose intact following hygiene. Pt complete oral hygiene sitting up in recliner chair set up. Transfer bedside chair to bed min assist x2 with improvement on NWB and no loss of balance, sit to supine max assist, ice packdonned and call light in reach upon exit * Perry Henderson MD - 06/10/2022 4:11 PM EDT [facility] inpatient notes Admit Date: 06/09/2022 Date of Evaluation: 34:11 PM [facility] Rehab / Skilled bed LOS: 1 day SUBJECTIVE: Patient seen and examined. Chart, medications, labs all reviewed. Patient denies all reports of HOLMAN, Dizziness, Fever, Chills, Nausea, Vomiting, Diarrhea, or Pain. Vital Signs: Blood pressure 131/62, pulse 68, temperature 97.5 F (36.4 C), temperature source Oral, resp. rate 15, height 1.549 m (5' 1 ), weight 102.3 kg (225 lb 8 oz), SpO2 95 %. O2 Sat (%): 95 % (06/10 1554) O2 Device: room air (06/10 1554) Intake and Output: Intake/Output Summary (Last 24 hours) at 06/10/2022 1611 Last data filed at 06/10/2022 1328 Gross per 24 hour Intake 2244 ml Output 1955 ml Net 289 ml Lines/Drains/Airways/Wounds: Peripheral IV Line - Single Lumen 06/09/22 1124 forearm, posterior, left 20 gauge (Active) Insertion Site WDL WDL 06/10/22 1305 Site Preparation/Maintenance dressing: dry and intact 06/10/22 1305 Securement sterile tape strips, secured with 06/10/22 1305 Lumen 1 Patency/Maintenance flushed without difficulty 06/10/22 1305 Phlebitis 0-->no symptoms 06/10/22 1305 Infiltration 0-->no symptoms 06/10/22 1305 Indication medication therapy 06/10/22 1305 Perineural Catheter 06/09/22 1540 right lateral knee (Active) Site Assessment clean;dry;intact 06/10/22 0745 Perineural Catheter lateral knee (Active) Wound Surgical 06/09/22 1401 incision Anterior;Right Knee (Active) Dressing Status Clean;Dry;Intact 06/10/22 0745 Closure Grubbs;Sutures 06/10/22 1305 Assessment Clean, dry, and intact 06/10/22 0745 Drainage Amount None 06/10/22 0745 Treatment Applied ice 06/10/22 0745 Intake/Output last 3 shifts: I/O last 3 completed shifts: In: 2244 [P.O.:840; I.V.:1404] Out: 1954 [Urine:1775; Other:180] Daily Weight: Wt Readings from Last 3 Encounters: 06/09/22 102.3 kg (225 lb 8 oz) 02/19/22 102.3 kg (225 lb 9.6 oz) 01/02/22 104.3 kg (230 lb) PHYSICAL EXAM: Review of Systems Constitutional: Negative for unexpected weight change. HENT: Negative for congestion, facial swelling and voice change. Eyes: Negative for pain. Respiratory: Negative for cough and shortness of breath. Cardiovascular: Negative for palpitations and leg swelling. Gastrointestinal: Negative for abdominal distention. Endocrine: Negative for cold intolerance and heat intolerance. Genitourinary: Negative for dysuria and urgency. Musculoskeletal: Positive for arthralgias and gait problem. Negative for myalgias. Skin: Negative for rash. Allergic/Immunologic: Negative for immunocompromised state. Neurological: Negative for seizures and weakness. Hematological: Does not bruise/bleed easily. Psychiatric/Behavioral: Negative for dysphoric mood. Physical Exam Vitals and nursing note reviewed. Constitutional: General: She is not in acute distress. Appearance: She is obese. She is not toxic-appearing or diaphoretic. HENT: Head: Atraumatic. Eyes: Pupils: Pupils are equal, round, and reactive to light. Neck: Vascular: No JVD. Trachea: No tracheal deviation. Cardiovascular: Rate and Rhythm: Normal rate and regular rhythm. Heart sounds: No murmur heard. Pulmonary: Effort: Pulmonary effort is normal. No respiratory distress. Breath sounds: Normal breath sounds. No wheezing or rales. Abdominal: General: Bowel sounds are normal. There is no distension. Palpations: Abdomen is soft. Tenderness: There is no abdominal tenderness. Musculoskeletal: General: Normal range of motion. Cervical back: Neck supple. Right lower leg: Edema present. Left lower leg: Edema present. Lymphadenopathy: Cervical: No cervical adenopathy. Skin: General: Skin is warm and dry. Capillary Refill: Capillary refill takes less than 2 seconds. Findings: No erythema or rash. Neurological: Mental Status: She is alert and oriented to person, place, and time. Motor: Weakness present. Gait: Gait abnormal. Psychiatric: Judgment: Judgment normal. Therapies Notes: Diagnostics: Admission on 06/09/2022 Component Date Value ABO/RH(D) 06/09/2022 O POSITIVE SPECIMEN DESCRIPTION 06/09/2022 RIGHT KNEE COMMENT 06/09/2022 APSF RESULT-CULT 06/09/2022 NO GROWTH 1 DAY Report Status 06/09/2022 PENDING SPECIMEN DESCRIPTION 06/09/2022 RIGHT KNEE COMMENT 06/09/2022 APSF GRAM STAIN 06/09/2022 NO RESULT-CULT 06/09/2022 NO GROWTH 1 DAY Report Status 06/09/2022 PENDING SPECIMEN DESCRIPTION 06/09/2022 RIGHT KNEE COMMENT 06/09/2022 APSF RESULT-CULT 06/09/2022 NO GROWTH 1 DAY Report Status 06/09/2022 PENDING SPECIMEN DESCRIPTION 06/09/2022 RIGHT KNEE COMMENT 06/09/2022 APSF GRAM STAIN 06/09/2022 FEW RESULT-CULT 06/09/2022 NO GROWTH 1 DAY Report Status 06/09/2022 PENDING SPECIMEN DESCRIPTION 06/09/2022 RIGHT KNEE COMMENT 06/09/2022 INCISICAL FLUID RESULT-CULT 06/09/2022 NO GROWTH 1 DAY Report Status 06/09/2022 PENDING SPECIMEN DESCRIPTION 06/09/2022 RIGHT KNEE COMMENT 06/09/2022 INCISICAL FLUID GRAM STAIN 06/09/2022 FEW RESULT-CULT 06/09/2022 NO GROWTH 1 DAY Report Status 06/09/2022 PENDING SCREEN: MRSA 06/09/2022 NOT DETECTED STAPHYOCOCCUS AUREUS BY * 06/09/2022 NOT DETECTED Glucose 06/10/2022 158 (H) BUN 06/10/2022 30 (H) CREATININE SERUM 06/10/2022 1.40 (H) SODIUM 06/10/2022 133 (L) POTASSIUM 06/10/2022 4.6 CHLORIDE 06/10/2022 102 CARBON DIOXIDE (CO2) 06/10/2022 21 (L) Albumin 06/10/2022 3.3 (L) CALCIUM 06/10/2022 8.9 PHOSPHORUS 06/10/2022 3.8 ESTIMATED GFR, NON AFRIC* 06/10/2022 40 ESTIMATED GFR, A* 06/10/2022 48 GFR COMMENT 06/10/2022 Average GFR for 70+ years old = 75. WBC (WHITE BLOOD COUNT) 06/10/2022 16.1 (H) RBC 06/10/2022 3.37 (L) HEMOGLOBIN (HGB) 06/10/2022 10.5 (L) HEMATOCRIT (HCT) 06/10/2022 32.2 (L) MEAN CELL VOLUME 06/10/2022 95.6 Mean Cell HGB 06/10/2022 31.3 MEAN CELL HGB CONCENTRAT* 06/10/2022 32.7 RBC DISTRIBUTION 06/10/2022 14.7 (H) PLATELET COUNT 06/10/2022 352 MEAN PLATELET VOLUME 06/10/2022 7.7 DIFFERENTIAL TYPE 06/10/2022 AUTO DIFF NEUTROPHILS 06/10/2022 92.3 (H) LYMPHOCYTE 06/10/2022 4.8 (L) MONOCYTE % 06/10/2022 2.8 EOSINOPHIL % 06/10/2022 0.0 BASOPHIL % 06/10/2022 0.1 Absolute Neutrophil Count 06/10/2022 14.8 (H) LYMPHOCYTES, ABSOLUTE 06/10/2022 0.8 (L) MONOCYTES, ABSOLUTE 06/10/2022 0.5 ABSOLUTE EOSINOPHIL COUNT 06/10/2022 0.0 ABSOLUTE BASOPHIL COUNT 06/10/2022 0.0 SARS COV 2 RNA, QL REAL * 06/10/2022 NOT DETECTED NARRATIVE -1 06/10/2022 This test was performed using isothermal GAB[employer]ELA and has been approved as Emergency Use Authorization (EUA) for the qualitative detection [id number] nucleic acid. 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 Anemia continue to monitor 3. Chronic kidney disease stage III continue monitoring the creatinine clearance 4. Hyponatremia stable continue to monitor 5. Atrial fibrillation rhythm controlled continue with calcium channel blockers 6. Hypertension we will continue with clonidine and continue to monitor 7. Polyneuropathy continue with Cymbalta 8. Continue GI and DVT prophylaxis 9. COPD continue with home medications no chest pain no shortness of breath * Augustina Mayer RN - 06/10/2022 3:50 PM EDT Spoke with Gordon at [facility] for follow up regarding referral. She states that insurance authorization is still pending at this time, will follow tomorrow. Patient updated at this time, denies any needs. * Semaj Pierce, SCRAPER LOADER OPERATOR - 06/10/2022 10:41 AM EDT 06/10/22 0954 Time In/Out Time In 0954 Time Out 1034 Total Visit Time 40 minutes Subjective RN Approved Intervention as tolerated Existing Precautions/Restrictions fall;weight bearing (TROM brace locked 0-30, NWB on R LE, gentle ROM 0-30 only) Subjective Reports Pt lying in bed upon arrival this sessoin. Pt agreeable for therapy and pt states pain at 5/10 in R knee. Cognitive Status Examination Orientation Status (Cognition) oriented x 4 Level of Consciousness alert Able to Follow Commands (Communication) WFL Personal Safety and Judgment intact General Pain Documentation (Adult, OB, Peds) Presence of Pain complains of pain/discomfort Pain Location knee, right Pain Management Interventions cold application Select Pain Scale (5/10) Objective Therapeutic Interventions Pt sitting in bedside chair upon arrival this session. Pt agreebale for therapy and pt began with bed mobility transfer from lying supine to sitting up at EOB with Rajan x1 with R LE supported thorughout transfer. Pt able to support self well while sitting up at EOB. Pt then completed STS to FWW with Rajan x2 and pt then ambulated towards bathroom with VCs for NWB technique with pt able to ambuate approx 5ft and then pt having difficulty with advancing L foot. CHIEF TELEPHONE OPERATOR placing BSC behind pt and pt then transfered to seated position on commode. Pt able to void and provide self pericare. Pt then completed STS with Rajan x2 and CHIEF TELEPHONE OPERATOR asissting pt with lower body dressing. Pt attempted to ambulate to chair with pt unable to advance L foot while maintianing NWB on R LE, chairplaced behind pt and pt transferfed to seated positoin in bedside chair. Pt in reclined position and pt completed protocol exercises of ankle pumps, QS, GS and gentle ROM with heel slides to 30 degrees only at this time per orders.Pt remained sitting in bedside chair with LEs elevated, ice pack applied to R knee, and call light left within reach. Pts daughter present in room at end of therapy session. Bed Mobility Skill: Supine to Sit, Rehab Eval Level of [place]: Supine/Sit minimum assist (75% patients effort) Physical Assist/Nonphysical Assist: Supine/Sit 1 person assist Transfer Skill: Sit To Stand, Rehab Eval [place] (Sit-Stand Transfers) minimum assist (75% patient effort) Physical Assist/Nonphysical Assist: Sit/Stand 2 person assist Weight-Bearing Restrictions: Sit/Stand nonweight-bearing Assistive Device For Transfer: Sit/Stand 2 wheeled walker Gait Skills, PT Eval Level of [place]: Gait minimum assist (75% patients effort) Physical Assist/Nonphysical Assist: Gait 2 person assist Weight-Bearing Restrictions: Gait nonweight-bearing Assistive Device For Transfer: Gait 2 wheeled walker Gait Distance 5 feet Gait Analysis, PT Eval Gait Pattern Used swing-to gait Stair Negotiation [place] Level: Stair Negotiation unable to assess Plan Plan for next visit Cont with protocol ex, gentle ROM 0-30 only, and mobility as able Maintain frequency yes * Augustina Mayer RN - 06/10/2022 10:18 AM EDT Update received from Gordon at [facility]. She will continue to update. Met with patient and daughter, Angela to update. SHAR Cha present during conversation, he recommends that patient transport with ambulance when discharging d/t weight bearing precautions and restrictions. * Augustina Mayer RN - 06/10/2022 9:15 AM EDT Spoke with staff at [facility], who state that referral has been received and they arereviewing. Staff state that they will call back within a half hour after reviewing. * Elaina Mercado RCP - 06/10/2022 7:55 AM EDT Patient took home triligy this morning at 0741 * Augustina Mayer RN - 06/10/2022 7:41 AM EDT Patient was assessed in [facility] on 05/15/22. Met with patient for follow up after surgery to discuss discharge plan. Therapy has recommended SNF placement for rehab. Patient states that she would like to go to [facility]. Patient will need a wheeled walker, explained that if patient goes to a SNF, this equipment will need to come from location of discharge, she verbalizes understanding and denies any equipment needs at this time. Nursing reports that the incision has been closed with jonah with hemovac in place, will request a 3 week follow up appointment. Jonah to be removed at facility of discharge. Patient denies any other questions or needs at this time. Referral faxed to [facility]. Follow up appointment scheduled for 07/03/22 @ 3:20 pm. * Vita Joshi APRN-TAB CUTTER - 06/10/2022 6:56 AM EDT Total Joint Progress Note P O DAY # 1 PROCEDURE: r tka revision SUBJECTIVE: No new symptoms or complaints PAIN RATIN/10 OBJECTIVE: Lab Results Component Value Date WBC 16.1 (H) 06/10/2022 HGB 10.5 (L) 06/10/2022 HGB 12.5 05/15/2022 HCT 32.2 (L) 06/10/2022 HCT 38.2 05/15/2022 PLATELET 352 06/10/2022 MCV 95.6 06/10/2022 Lab Results Component Value Date SODIUM 133 (L) 06/10/2022 POTASSIUM 4.6 06/10/2022 CHLORIDE 102 06/10/2022 CO2 21 (L) 06/10/2022 BUN 30 (H) 06/10/2022 BUN 35 (H) 05/15/2022 CREATSERUM 1.40 (H) 06/10/2022 CREATSERUM 1.70 (H) 05/15/2022 GLUCOSE 158 (H) 06/10/2022 Vital Signs: Vitals: 06/10/22 0439 BP: 124/60 Pulse: 66 Resp: 16 Temp: 97.4 F (36.3 C) Patient is alert and oriented times three. Abdomen: Soft, non-tender without organomegaly and bowel sounds are active Vascular: Dorsalis pedis/posterior tibial pulses RIGHT/LEFT/BILATERAL: Bilateral NORMAL / ABNORMAL (RESULT): Normal Neuro: Intact/deficit: intact to light touch Wound Appearance: DESCRIPTION; WOUND: incision Erythema: PRESENT OR ABSENT: absent Drainage none Dressing: Clean/dry/intact DVT Screening Exam: Calves soft/non-tender Van hose: PRESENT OR ABSENT: present Foot pumps/ SCD's: PRESENT OR ABSENT: present Hemovac Drain Output: na mL/last shift Physical Therapy: ROM: 0-30 degrees Gait Distance: 5 Feet: ASSESSMENT: sp r tka revision pod 1 PLAN: 1. PT/OT 2. IV antibiotics 3. DVT prophylaxis 4. Discharge planning DISCHARGE PLANNING: plans; post hospital: SEE SS NOTES * Alexandra Crawford PT - 06/09/2022 7:06 PM EDT 06/09/22 1753 Time In/Out Time In 1753 Time Out 1845 Total Visit Time 52 minutes Initial Evaluation/Screen Completed? yes General Information RN Approved Intervention as tolerated Diagnosis Failed R TKA Surgical Procedure R knee revision, per Tj Everett CNP there is a tibial fx. Radiology and op note not currently available. Past Medical History Past Medical History: Diagnosis Date Arrhythmia a-fib COPD (chronic obstructive pulmonary disease) Essential hypertension, benign Hyperlipidemia GARETT (obstructive sleep apnea) Renal disease Past Surgical History Past Surgical History: Procedure Laterality Date KNEE REPLACEMENT Bilateral 2006 left in 2006 -right 2008---Dr. Crain APPENDECTOMY BREAST BIOPSY Bilateral TONSILLECTOMY Existing Precautions/Restrictions fall;weight bearing;other (see comment) (TROM brace set 0-30 degrees. Gentle ROM only 0-30 degrees. NWB RLE.) Right Lower Extremity non-weight bearing Home Setting Residence House Lives With alone First floor setup (1 story) Number of stairs to enter home 3 with rail Mobility Equipment Available (WW that pt has is too tall for her. Pt will need a new FWW.) Previous Level of Function Ambulation Skills independent Assistive Device 4 wheeled walker;straight cane Level of Ambulation [facility] General Pain Documentation (Adult, OB, Peds) Presence of Pain complains of pain/discomfort Pain Location knee, right (/10) Cognitive Status Examination Orientation Status (Cognition) oriented x 4 Level of Consciousness alert Able to Follow Commands (Communication) WNL Personal Safety and Judgment intact Range of Motion (ROM) Range of Motion Examination deficits as listed below (Gentle ROM only R knee currently 0-30 degrees.) Manual Muscle Testing (MMT) Manual Muscle Testing Results (R knee NT. LLE WFL, R ankle WFL) Bed Mobility Skill: Supine to Sit, Rehab Eval Level of [place]: Supine/Sit contact guard Transfer Skill: Sit To Stand, Rehab Eval [place] (Sit-Stand Transfers) minimum assist (75% patient effort) Weight-Bearing Restrictions: Sit/Stand nonweight-bearing Assistive Device For Transfer: Sit/Stand 2 wheeled walker Gait Skills, PT Eval Level of [place]: Gait minimum assist (75% patients effort) Physical Assist/Nonphysical Assist: Gait 2 person assist Weight-Bearing Restrictions: Gait nonweight-bearing Assistive Device For Transfer: Gait 2 wheeled walker Gait Distance 5 feet Gait Analysis, PT Eval Gait Pattern Used swing-to gait Balance Additional Documentation (Standing balance: poor+) Sensory Examination Sensory Examination WFL Plan of Care Interventions Planned Therapy Interventions balance training;bed mobility training;gait training;neuromuscular re-education;strengthening;transfer training;ROM Additional Comments Pt educated on NWB on RLE, and that she is allowed gentle ROM 0-30 degrees at this time with TROM brace on at all times. Pt performed ankle pumps, glut sets, quad sets, and heel slide x10 on RLE. SAQ and SLR not performed at this time due to restrictions. Pt struggled with ambulation, but did maintain NWB on RLE. Pt had difficulty advancing forward greater than 5 ft. Pts walker that was brought from home, was too tall for her to use her UE effectively, and pt did do better with a shorter walker, but is still hopping instead of weight shifting to advance forward. Discussed with patient and family that pt may need to go somewhere for rehab prior to discharge home, and pts f amily in agreement. Pts brace appears to be shifted down 1-2 inches too far. ABD pads applied to the bottom to decrease presure points, and Tj Brochwell, TAB CUTTER notified. Tj states that she will check/adjust the brace in the morning, but also said nursing could shift the brace up if required before then. Nursing notified. Pt sat in recliner following evaluation and left with OT. Released to nursing for transfers with WW and +2 assist. Assessment Assessment Narrative Pt is having difficulty with ambulation due to restrictions. At this time ECF recommended. Discharge Recommendations ECF Clinical Impression Co-evaluation/co-treatment performed? Yes, combination of simultaneous billable and individual billable skilled care Criteria for Skilled Therapeutic Interventions Met (PT Eval) yes, treatment indicated Impairments Found (PT Eval) Strength;Balance;Transfers;Gait/Locomotion;ROM (range of motion) Rehab Potential (PT Eval) good Therapy Frequency BID (twice a day) Anticipated Equipment Needs at Discharge (PT Eval) 2 wheeled walker Continue care plan yes Today's Treatment Included PT Eval, gait, transfers, ther-ex, pt education Therapist Recommendations At Discharge Recommendations PT Services recommended at Discharge Plan Plan for next session Next visit continue with exercises per evaluation, gentle ROM only 0-30 degrees, and advance transfers and gait with NWB RLE. Therapist Information [place] # [id number] PT Goals: 1. Patient will perform all transfers with WW and CGA, while maintaining TTWB on RLE, to ensure safety at discharge. 2. Pt will ambulate 30 ft with FWW and CGA, with TTWB RLE, to ensure safety with household ambulation. 3. Pt will maintain 0-30 degrees gentle ROM of R knee. 4. Pt will perform a modified car transfer with CG assist to ensure patient will be safe when leaving home. 5. Pt will ambulate up and down 4 steps with rail/device and min assist, while maintaining TTWB to RLE, to ensure safety in and out of home. 6. Pt will be independent with HEP per total joint binder in order to continue with ROM progressionat home. 7. Pt will demonstrate understanding of proper procedures for edema control. * Robyn Almazan, OT - 06/09/2022 7:05 PM EDT 06/09/221829 Time In/Out Time In 1830 Time Out 1854 Total Visit Time 25 minutes Initial Evaluation/Screen Completed? yes General Information RN Approved Intervention as tolerated Admitting Diagnosis failed right TKA Surgical Procedure right knee revision, per TAB CUTTER has a tibial fracture Past Surgical History Past Surgical History: Procedure Laterality Date KNEE REPLACEMENT Bilateral 2006 left in 2006 -right 2009---Dr. Crain APPENDECTOMY BREAST BIOPSY Bilateral TONSILLECTOMY Past Medical History Past Medical History: Diagnosis Date Arrhythmia a-fib COPD (chronic obstructive pulmonary disease) Essential hypertension, benign Hyperlipidemia GARETT (obstructive sleep apnea) Renal disease Existing Precautions/Restrictions fall;weight bearing (NWB in right LE, TROM brace 0-30) Previous Level of Function Bed Mobility/Transfers independent Bathing independent Upper Body Dressing independent Lower Body Dressing independent Grooming independent Toileting independent Eating independent Home Management Skills independent General Pain Documentation (Adult, OB, Peds) Presence of Pain complains of pain/discomfort Pain Location knee, right Pain Management Interventions cold application Select Pain Scale (2-3/10) Home Setting Residence House Lives With alone First floor setup bedroom;walk-in shower;grab bars Number of Stairs to Enter Home 3 Number of Stairs Within Home (has second floor does not need to access) Equipment Available straight cane;axillary crutches;shower chair;hand held shower hose;insurance salesperson;sock-aid;long-handled shoe horn (high rise toilet) Cognitive Status Examination Orientation Status (Cognition) oriented x 4 Level of Consciousness alert Able to Follow Commands (Communication) WFL Personal Safety and Judgment intact Vision Screen Currently wearing corrective lenses Yes Speech Speech no gross deficits noted Hearing Hearing no gross deficits noted Sensory Examination Sensory Examination WFL Range of Motion (ROM) Range of Motion Examination bilateral upper extremity ROM was WFL Manual Muscle Testing (MMT) Dominant Hand right Transfer Skill: Sit to Stand, Rehab Eval Level of [place]: Sit/Stand contact guard Physical Assist/Nonphysical Assist: Sit/Stand 1 person assist Weight-Bearing Restrictions: Sit/Stand nonweight-bearing Assistive Device for Transfer: Sit/Stand wheeled walker Upper Body Dressing Level of [place] independent Physical Assist/Nonphysical Assist set-up required (in sitting) Lower Body Dressing Level of [place] maximum assist (25% patients effort) Physical Assist/Nonphysical Assist 1 person assist General Therapy Interventions Planned Therapy Interventions (OT Eval) ADL retraining;balance training;transfer training Clinical Impression Co-evaluation/co-treatment performed? Yes, combination of simultaneous billable and individual billable skilled care Patient Instruction Pt instructed on LB dressing techniques donning shorts only at this time due tocatheter, patient complete with max assist to thread over right LE and to car clerk pullman bilateral hips due to NWB and patient having difficulty maintaining in standing attempting to pull shorts up Rehab Potential (OT Eval) good, to achieve stated therapy goals Therapy Frequency 7 times a week Today's Treatment Included Pt demonstrates good safety awareness during functional mobility and transfer training following instruction with moderate carry over with NWB in right LE. Pt will continueto need review with step length and progressing body. Pt states she lives on the main floor and hasfamily support however will need more assistance than they can provide initially Continue care plan yes Goals Goals For Discharge Recommend ECF placement Discussed risk / benefits with patient Therapist Recommendations At Discharge Recommendations OT Services recommended at Discharge Plan Plan for next session continue with dressing, bathing, bathroom transfers and hygiene training Therapist Information License # [id number] 1. Pt will complete LB dressing mod assist x1 2. Pt will complete sponge bathing SBA for UB, mod assist for LB 3. Pt will complete toileting to bathroom commode mod assist x1 4. Pt will complete hygiene/grooming sitting up in chair set up 5. Pt will complete UB dressing independent * Martha Garcia RCP - 06/09/2022 6:09 PM EDT Patient instructed on Incentive spirometer. * Jerilyn Baig - 06/09/2022 4:27 PM EDT THIS PATIENT HAS HAD ORTHOPEDIC SURGERY AND IS EXPECTED TO HAVE PAIN REQUIRING NARCOTICS FOR >7 DAYS AND MAY NEED UP TO 12 tabs of Oxycodone PER DAY AND THEREFORE 30 tabs ARE BEING DISPENSED IN ACCORDANCE WITH POC DISCUSSED WITH DR CLARK. * Augustina Mayer RN - 06/09/2022 4:26 PM EDT Update received from Venessa Ortiz, Total Joint Coordinator, that in rounding with Dr. Clark, he discussed with family that patient will be non-weight bearing and in a brace after surgery. Daughters were present and asking about rehab placement. Met with 3 daughters and granddaughter to discuss discharge plan. They state that the patient livesalone and while she was originally planning to return home with [facility], with these new developments they do not believe she will be safe to return home. Her family states that they all work and do not feel comfortable leaving her alone is she is NWB. Facilities discussed, family suggesting [facility] as a first option. Referral process explained, family verbalizes understanding. Informedthat I will follow up with patient after she has worked with therapy and discuss discharge plan with her then before making a referral. Daughter, Angela, provides number ([phone]). She states that she will be staying in the area overnight and back in the morning. * Deisi Dickens RD - 06/09/2022 2:37 PM EDT NUTRITION ASSESSMENT: ORTHOPEDIC Nutrition Assessment Pending diet advancement, RD will order Ensure Plus HP at 3pm. Pt would benefit from the additionalkcal, protein, vitamins, and minerals to help meet increased nutrition needs based on planned orthopedic surgery with Dr. Clark. Recommend to continue supplementation at home for 2-4 weeks after surgery. Anthropometrics: Ht Readings from Last 1 Encounters: 06/09/22 1.549 m (5' 1 ) Wt Readings from Last 5 Encounters: 06/09/22 102.3 kg (225 lb 8 oz) 02/19/22 102.3 kg (225 lb 9.6 oz) 01/02/22 104.3 kg (230 lb) [place] body weight: 47.8 kg (105 lb 6.1 oz) Adjusted ideal body weight: 69.6 kg (153 lb 6.8 oz) Body mass index is 42.61 kg/m . Nutrition Intake: No active diet orders No Known Allergies Labs: Lab Results Component Value Date GLUCOSE 103 (H) 05/15/2022 HGBA1C 5.8 05/15/2022 SODIUM 133 (L) 05/15/2022 POTASSIUM 4.3 05/15/2022 CALCIUM 9.6 05/15/2022 ALBUMIN 3.7 05/15/2022 TP 7.2 05/15/2022 BUN 35 (H) 05/15/2022 CREATSERUM 1.70 (H) 05/15/2022 AST 18 05/15/2022 ALT 14 05/15/2022 CRP 9.5 05/15/2022 HGB 12.5 05/15/2022 HCT 38.2 05/15/2022 WBC 10.1 05/15/2022 RBC 4.02 05/15/2022 PMH & PSH: Past Medical History: Diagnosis Date Arrhythmia a-fib COPD (chronic obstructive pulmonary disease) Essential hypertension, benign Hyperlipidemia GARETT (obstructive sleep apnea) Renal disease Past Surgical History: Procedure Laterality Date KNEE REPLACEMENT Bilateral 2006 left in 2006 -right 2008---Dr. Crain APPENDECTOMY BREAST BIOPSY Bilateral TONSILLECTOMY Nutrition Diagnosis NI-5.1 Increased protein needs related to increased demand for protein as evidenced by planned orthopedic surgery. Interventions Order Ensure Plus HP at 3pm Diet order: When medically appropriate, advise a Heart Health diet or per provider choice Monitoring & Evaluation PO intake, labs, weight, ONS intake, and medical condition KAREN Nielson Registered Dietitian, Licensed Dietitian 06/09/22 * Jacinta Conley RN - 05/22/2022 9:07 AM EST Images from the original note were not included. Sd Rehman Female, 71 y.o., 1950 (M) Roland Moe, DO Reji Rai RN Cc: Jacinta Conley RN; Mayda Burnham, RN She may proceed based on receiving risk stratification from cardiology Previous Messages ----- Message ----- From: Reji Rai RN Sent: 05/15/2022 6:28 PM EST To: Mayda Burnham RN, Jacinta Conley RN, * Please review abnormal ekg and CMP and advise. EKG scanned into Media. Pt has a nephrology clearance note scanned into Media as well. Pt has medical and cardiology pending. Thanks documented in this encounterUniversity [facility] Hospital course Narrative* Perry Henderson MD - 06/11/2022 4:21 PM EDT Images from the original note were not included. Discharge Summary Name: Sd Rehman Age: 71 y.o. 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 Brief Summary of Hospital Course for Discharge Summary: This is a 71-year-old female with past medical history of hypertension hyperlipidemia gout chronic kidney disease hyponatremia long-term use of NSAIDs atrial fibrillation COPD admitted to [facility] for elective right knee revision Dr. Clark June 09. After this surgery patient complains of no chest pain or shortness of breath no palpitations no abdominal pain no nausea, vital signs and labs monitored, patient worked with physical therapy , determination was made that patient wouldbenefit from skilled nurse facility. Patient will be discharge to skilled nurse facility June 11 the follow-up primary care and orthopedic services Brief Summary of Consults for Discharge Summary: Brief Summary of Procedures and Imaging for Discharge Summary: Summary of last selected lab results and date obtained: Lab Results Component Value Date WBC 17.7 (H) 06/11/2022 HGB 9.5 (L) 06/11/2022 HCT 29.0 (L) 06/11/2022 PLATELET 330 06/11/2022 MCV 95.0 06/11/2022 Lab Results Component Value Date SODIUM 132 (L) 06/11/2022 POTASSIUM 4.2 06/11/2022 CHLORIDE 99 06/11/2022 CO2 21 (L) 06/11/2022 BUN 36 (H) 06/11/2022 CREATSERUM 1.48 (H) 06/11/2022 GLUCOSE 137 (H) 06/11/2022 Lab Results Component Value Date ALT 14 05/15/2022 AST 18 05/15/2022 ALKPHOS 94 05/15/2022 BILITOTAL 0.6 05/15/2022 Brief Summary of Labs for Discharge Summary: Discharge Orders AMB REFERRAL TO PHYSICAL THERAPY Physical Therapy Eval and Treat per Facility Occupational Therapy Eval and Treat per Facility Social Work Services per Facility Discharge Condition: Improving Discharge Summary: Enclosed Admission H&P Valid: Yes Patient Aware of Diagnosis: Yes Free of Communicable Disease: Yes Rehab Potential: Good Discharge Potential: Length of Stay < 30 Days Activity as tolerated Diet - Diabetic with Restrictions Vital Signs per Facility Protocol Give 2-Step Mantoux: No Agency Standing Orders: No Physical Therapy Eval and Treat per Facility Occupational Therapy Eval and Treat per Facility Social Work Services per Facility Current Outpatient Meds: Medication List for when you go home START taking these medications Acetaminophen 325 MG tablet Take 2 tablets by mouth every 4 hours as needed for Mild Pain. Do not exceed 4000mg of Tylenol in 24 hour period. Commonly known as: TYLENOL Replaces: acetaminophen 650 MG tab ER * apixaban 2.5 MG TABS Take 1 tablet by mouth every 12 hours for 5 days. Once complete, begin regimen of Eliquis 5mg twicea day. Commonly known as: ELIQUIS * apixaban 5 MG TABS Take 1 tablet by mouth every 12 hours. This medication is for blood clot prevention Commonly known as: ELIQUIS Docusate 100 MG CAPS Take 1 capsule by mouth 2 times daily. Hold for loose stools. Commonly known as: COLACE ferrous sulfate 325 (65 Fe) MG TABS Take 1 tablet by mouth 2 times daily. omeprazole [address] capsule Take 1 capsule by mouth daily. Commonly known as: PRILOSEC oxyCODONE 5 MG TABS Take one to two tabs every 4-6 hours as needed for severe pain. Wean as tolerated Commonly known as: ROXICODONE For diagnoses: Acute postoperative pain of right knee therapeutic multivitamin-minerals TABS Take 1 tablet by mouth at bedtime. * The same medication is listed twice. Please discuss with your provider. CONTINUE taking these medications Albuterol 108 (90 Base) MCG/ACT AERS inhaler albuterol sulfate HFA 90 mcg/actuation aerosol inhaler INHALE 2 PUFFS EVERY 4 HOURS NEEDED FOR SHORTNESS OF BREATH Allopurinol 300 MG TABS Take 1 tablet by mouth daily. Commonly known as: ZYLOPRIM Chantix Starting Month Froylan 0.5 MG X 11 & 1 MG X 42 TBPK Take 1 mg by mouth 2 times daily. Generic drug: Varenicline Tartrate (Starter) cloNIDine 0.1 MG TABS Take 1 tablet by mouth 2 times daily. Commonly known as: CATAPRES Colchicine 0.6 MG TABS colchicine 0.6 mg tablet TAKE 1 TABLET BY MOUTH EVERY DAY NEEDED FOR FLARE diltiazem 240 MG cap XR Take 1 capsule by mouth 2 times daily. Commonly known as: TIAZAC DULoxetine [address] capsule DR Take 1 capsule by mouth daily. Commonly known as: CYMBALTA Folic Acid 800 MCG TABS Take by mouth daily. furOSEmide 20 MG TABS TAKE 1 TABLET BY MOUTH EVERY DAY FOR 90 DAYS Commonly known as: LASIX Loratadine 10 MG TABS Take 1 tablet by mouth as needed. Commonly known as: CLARITIN Rosuvastatin 20 MG TABS Take 1 tablet by mouth daily. am Commonly known as: CRESTOR Spironolactone 25 MG TABS Take 1 tablet by mouth daily. Commonly known as: ALDACTONE Trelegy Ellipta 100-62.5-25 MCG/ACT AEPB inhaler Inhale 1 puff daily. Generic drug: hfluuerdwtk-mrmnyiqam-Spphrn STOP taking these medications acetaminophen 650 MG tab ER Commonly known as: TYLENOL Replaced by: Acetaminophen 325 MG tablet Cholecalciferol 25 MCG (1000 UT) CAPS Notes to patient: May resume taking 06/23/2022. Meloxicam 15 MG TABS Commonly known as: MOBIC traMADol 50 MG TABS Commonly known as: ULTRAM Follow-up: Other [facility] [address] [place] [address] Follow up [facility] Patrick Odom, DO [address] [place] [address] [place] [address] Follow up in 1 week(s) Navin Clark MD [address] [facility] [id number] Follow up in 3 week(s) Upcoming Appointments (up to five)-Some appointments for Medical Center outpatient clinics or diagnostic testing locations are not displayed below Provider Department Dept Phone 06/25/2022 1:00 PM Jerilyn Baig [facility] [phone] Total coordination of discharge care taking greater that 35 minutes documented in this encounterUniversity Hospitals [facility]03-22-2023 Note* Nursing Notes - KO Lucio - 06/11/2022 4:09 PM EDT Called [facility] at this time for transport to [facility]. ETA 1715 Erum RN notified. [facility]03-22-[facility] Note* Plan of Care - Erum Orozco RN - 06/11/2022 3:40 PM EDT Problem: Patient Care Overview Goal: Plan of Care Review Outcome: Adequate for Discharge Goal: Individualization & Mutuality Outcome: Adequate for Discharge Goal: Discharge Needs Assessment Outcome: Adequate for Discharge Goal: Interdisciplinary Rounds/Family Conf Outcome: Adequate for Discharge Problem: Knee Arthroplasty (Total, Partial) (Adult) Goal: Signs and Symptoms of Listed Potential Problems Will be Absent, Minimized or Managed (Knee Arthroplasty) Description: Signs and symptoms of listed potential problems will be absent, minimized or managed by discharge/transition of care (reference Knee Arthroplasty (Total, Partial) (Adult) CPG). Outcome: Adequate for Discharge Goal: Anesthesia/Sedation Recovery Outcome: Adequate for Discharge Problem: Pain, Acute (Adult) Goal: Identify Related Risk Factors and Signs and Symptoms Description: Related risk factors and signs and symptoms are identified upon initiation of Human Response Clinical Practice Guideline (CPG) Outcome: Adequate for Discharge Goal: Acceptable Pain Control/Comfort Level Description: Patient will demonstrate the desired outcomes by discharge/transition of care. Outcome: Adequate for Discharge Problem: Skin Integrity Impairment, Risk/Actual (Adult) Goal: Identify Related Risk Factors and Signs and Symptoms Description: Related risk factors and signs and symptoms are identified upon initiation of Human Response Clinical Practice Guideline (CPG) Outcome: Adequate for Discharge Goal: Skin Integrity/Wound Healing Description: Patient will demonstrate the desired outcomes by discharge/transition of care. Outcome: Adequate for Discharge Problem: Activity Intolerance (Adult) Goal: Activity Tolerance Description: Patient will demonstrate the desired outcomes by discharge/transition of care. 1. Pt will complete LB dressing mod assist x1 2. Pt will complete sponge bathing SBA for UB, mod assist for LB 3. Pt will complete toileting to bathroom commode mod assist x1 4. Pt will complete hygiene/grooming sitting up in chair set up 5. Pt will complete UB dressing independent Robyn Almazan OT 06/09/2022 7:08 PM Outcome: Adequate for Discharge [facility]03-22-2023 Note* Nursing Notes - Carley Miller RN - 06/11/2022 4:31 AM EDT Pt assessment remains unchanged with any exceptions noted in flowsheets. Pt c/o 5-6/10 pain after getting up to use the BSC. Medication given- see MAR. Ice pack changed and applied to R. Knee. Foot pumps on. TROM in place. Denies any further needs at this time. Call light within reach. [facility] [employer] [phone] Note* Nursing Notes - Carley Miller RN - 06/11/2022 2:50 AM EDT Pt assessment remains unchanged with any exceptions noted in flowsheets. Pt is resting in bed with CPAP on. Ice pack changed and applied to R. Knee. Foot pumps on. Denies any pain or needs at this time. Call light within [facility]. [facility]* Nursing Notes - Carley Miller RN - 06/10/2022 9:43 PM EDT Pt assessment complete. POC reviewed with pt. Ice pack changed and applied to R. Knee. Foot pumps on. TROM in place. CPAP on. Denies any pain or needs at this time. Bed alarm set. Call light within reach. [facility]03-21-2023 Note* Therapy Note - Elena Langley RRT - 06/10/2022 7:38 PM EDT Paper signed for pt to use home CPAP [facility]03-21-2023 Note* Nursing Notes - Prerna Holden RN - 06/10/2022 1:05 PM EDT Assessment is complete and remains unchanged from previous at this time with any exceptions noted in the flowsheet. Patient denies further needs and is left with call light and personals in reach. [facility]03-21-2023 Hospital Discharge instructions* Discharge Instructions* Prerna Holden RN - 06/10/2022 9:47 AM EDT You have been given printed educational handouts on all new medications. Please refer to your greendischarge folder for handouts. You have been given seven ABD pads, one ice gel compression wrap, six ice gel packs, two pairs of VAN hose and all personal belongings. If at any time you have questions please refer to your green discharge folder with all at home care instructions. Van Hose: > Help reduce the risk of blood clots and decrease swelling > To be worn bilaterally to the lower extremities for 30 days post-op > You are able to take your VAN hose off for 1 hour for every 8 hours that they wear them Medications: > You have been sent home with prescriptions, including medication for pain to be taken as directed. Stay ahead and do not allow your pain to get out of control. > If prescribed Aspirin, take twice a day for 30 days. Do not skip a dose, this is your medication for the prevention of blood clots. > If you have not had a bowel movement by your 3rd post-operative day you will need to use a gentle over the counter laxative such as Milk of magnesia, Fiberlax, Miralax, etc. Bowels need to move within 3 days or take action. Gel Ice Packs > Change every 4 hours or as needed for swelling and pain for at least the first 2 weeks Ambulation > Weight bearing status : NON weight bearing to right leg For Knee Replacements: > Above weight bearing status as tolerated with a walker then progress to a cane if stable, unless noted otherwise by the physician or therapist. > Physical therapy 3 times per week for 6 full weeks > Maintain uninterrupted therapy if transitioning from home therapy to out patient therapy > No therabands over your wound/incision > Patients should be doing home exercises on days they are not working with a therapist > Do not rest with a pillow under the knee, work on flexion and extension exercises to improve range of motion > Gentle ROM 0-30 degrees until your follow up appointment Anesthesia Precautions & Expectations: After anesthesia, rest for [address], drink alcoholic beverages or make any important decisions during this time. General anesthesia may cause a sore throat, jaw discomfort or muscle aches. These symptoms can last for one or two days. If you have been discharged the same day as surgery, Dr. Clark's office will call you the morning after your discharge to follow up with how your recovery is progressing at home. CONTACT SAW SHARPENER FOR FURTHER INSTRUCTION ONCE POST-OP ELIQUIS IS COMPLETE * Discharge Instr - Activity* Prerna Holden RN - 06/10/2022 9:44 AM EDT Ambulate with wheeled walker until follow up appointment or directed by Dr. Clark. Keep your leg in your TROM brace. Gentle ROM 0-30 degrees of right knee until follow up, Non-weightbearing right side * Discharge Instr - Diet* Prerna Holden RN - 06/10/2022 9:45 AM EDT Resume home diet as tolerated. * Discharge Instr - Notify* Prerna Holden RN - 06/10/2022 9:45 AM EDT Contact Office ([phone]) if: > Total Knee ROM < 90 degrees upon admission to home health or at any time during recovery period > Any falls or injuries > Redness, drainage or swelling at the incision site that is out of the ordinary from post-operative findings (minor redness, swelling and warmth around the entire knee are common post-operatively) > Patient non-compliance with assistive devices during gait > Fever > 101 degrees. For low grade fevers use Incentive Spirometry @ 10 puffs per hour and tylenol as directed. * Discharge Instr - Wound Care* Augustina Mayer RN - 06/10/2022 9:45 AM EDT Your incision is closed with jonah. These are to be removed 10-14 days after you surgery at the [facility] facility. Your surgery day was 06/09/2022. Do not get your incision wet until after your jonah have been removed. Once the jonah have been removed and you are able to shower do not saturate or submerge extremity in water (i.e. Bathtub, hot tub, etc.) until cleared by the provider. Do not wash/scrub directly over/on your incision. Pat your incision dry do not rub your incision with a towel. Do not place any lotions, ointments, creams or powder on your incision or operative leg. When applying your new ABD pad after showering as a reminder do not place any tape over you ABD pad. Your VAN hose are to hold your pad in place. Keep your leg in your TROM brace. documented in this [facility]03-21-2023 Note* Certification - Navin Clark MD - 06/10/2022 6:40 AM EDT I certify that this patient requires inpatient services at this time. Patient is having a Medicare Inpatient Only procedure. Plans for post hospitalization care will be determined in the discharge planning process with social insurance administrator and the multidisciplinary team. GOOD [facility] [employer] [facility] Work Phone: 1(857) 664-827203-21-2023 Note* Nursing Notes - Carley Miller RN - 06/10/2022 4:45 AM EDT Pt assessment remains unchanged with any exceptions noted in flowsheets. Ice pack changed and applied to R. Knee. Foot pumps on. TROM in place. Denies any pain or needs at this time. Call light within reach. [facility] [employer] [id number] Note* Nursing Notes - Carley Miller RN - 06/09/2022 11:01 PM EDT Pt assessment remains unchanged with any exceptions noted in flowsheets. Pt states pain is 2/10 andtolerable. Ice pack changed and applied to R. Knee. TROM in place. Foot pumps on. Denies any needs at this time. Call light within reach. Bed alarm set. [facility] [employer] [id number] Note* Nursing Notes - Carley Miller RN - 06/09/2022 10:00 PM EDT Pt refuses to wear CPAP d/t loud noise and unable to sleep. Pt on RA and O2 sat is 92%. [facility] [employer] [id number] Note* Nursing Notes - Carley Miller RN - 06/09/2022 8:17 PM EDT Pt assessment complete. POC reviewed with pt. Pt c/o 08/30 pain to R. Knee. Medication given- see MAY. TROM in place. Ice pack changed and applied to R. Knee. Foot pumps on. Bed alarm set. Denies any further needs at this time. Call light within reach. [facility]03-20-2023 Note* Nursing Notes - Carley Miller RN - 06/09/2022 8:00 PM EDT RT states pt has her own trilogy and albuterol breathing treatments with her and that the pt would like to use her own breathing treatment. Messaged Dr. Henderson to ask if pt is okay to use her own breathing treatment medications and if he would like to discontinue ordered Duonebs. Dr. Henderson states this is okay with him. [facility]03-20-2023 Note* Op Note - Navin Clark MD - 06/09/2022 7:52 PM EDT DATE OF PROCEDURE: June 09, 2022 ATTENDING PHYSICIAN: Navin Clark M.D. [employer] PROCESS SERVER DEVELOPER: Jerilyn Baig CNP PREOPERATIVE DIAGNOSIS: 1. 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 2. Obesity, increased BMI of 43. POSTOPERATIVE DIAGNOSIS: 1. Aseptic loosening, cemented bonding, right total knee arthroplasty. 2. Periprosthetic tibial plateau fracture 3. Obesity, increased BMI of 43. PROCEDURES PERFORMED: 1. Revision both components right total knee arthroplasty with modifier for increased BMI. 2. Periarticular injection right knee. 3. Autologous bone grafting to periprosthetic tibial plateau, femur. 4. Autologous bone grafting of distal femoral defect, 5 x 10 mm. 5. Periarticular injection. 6. Placement of continuous catheter adductor canal right knee. ANESTHESIA: Per anesthesiologist. ANESTHESIOLOGIST: Per record. ESTIMATED BLOOD LOSS: 25 mL COMPLICATIONS: Extension of periprosthetic tibial plateau fracture. INTRAVENOUS FLUIDS: Adequate. SPECIMENS: None. INSTRUMENTATION USED: [email or web address] size 3 right revision CRS femoral component with a 4 mm distal medial, 4 mm distal lateral augment with a 12/60 stem and a 4 mm off-set adapter with a size 2 revision tibial component with a size 10 x 60 tibial stem, size 3 rotated platform 60 mm thick polyethylene and a [employer] moldable demineralized bone fiber package. INDICATIONS: dS is a 71 year-old female with a history of previous total knee arthroplasty with chronic pain, instability and preoperative workup concerning for loosening of her prosthetic knee,septic vs aseptic in nature. The complex nature of the surgery and the risks, benefits and alternatives fully explained to she and her family. She is in agreement with the treatment plan. She is therefore scheduled for the procedure for which she appears today. DESCRIPTION OF THE PROCEDURE: Upon arrival to the operating room she was placed supine on the operative table. General anesthetic was induced. A Ann catheter was placed under sterile conditions. The right lower extremity was then elevated and prepped and draped in a sterile standard fashion. A proper time-out was performed. I began by utilizing the previous incision, extended it superiorly and inferiorly as necessary, came down through an extensive amount of subcutaneous fat over the knee itself. I performed a medial parapatellar arthrotomy, and coming through to the knee I encountered a significant synovial reaction.There was sterile fluid, but the base of the synovial area itself was essentially a milky colored tissue. There was significant synovitis of this tissue. A complete synovectomy was performed on the anterior mediolateral side. The gutters were reestablished. There was obvious loosening and motion ofthe patella component, the tibial component, and at this point then the previous polyethylene was re moved. The knee was flexed. Exposure was gained of the distal femur. A combination of osteotomes were used to mobilize around it. This was removed. Underneath was a cyst on the distal femur as previously described. This was taken down to a healthy bleeding bone base. The posterior flexion space wasthen opened up with lamina e business manager. A posterior synovectomy was performed. The tibia was subluxed forward. The tibial component was grossly loosened and removed without complication. However, in removal of the tibial component, there was evidence of a severe tibial defect posteriorly, medially, approximately 10 x 10 x 10. There was fracture and comminution laterally in the posterolateral corner of the tibial plateau and severe osteolysis of the remaining proximal tibia. The cement mantle itself was extremely interdigitated into an otherwise small proximal tibia. Great care was used to removethis. A proximal medial fracture extended at this stage, but was otherwise was contained at around 10-15 mm in length. Once this was done, the knee was brought into extension. The knee was thoroughlyirrigated and I then turned my attention to the tibia. The tibia, now reexposed, was reamed up to a size 11. The 10 had excellent cortical chatter. Given the bone loss and need for constraint, I opted for the sleeve-based system. The proximal reamer was used. I then broached up to a 29 sleeve. This had excellent fit and fill. The periprosthetic medially-based fracture was stable at this point. At this point, then, I cut the proximal tibial plateau inline with the sleeve which was otherwise in line with mechanical and anatomic axis of the tibia. Given the femoral sizing between 3 and 4, I chose a size 2 tibia which ultimately optimized coverage. This was rotated to the medial one-third of the tibial tuburcle. The trial was placed and upon further impacting this trial component I had excellent press-fit, but the fracture continued down the proximal medial tibial plateau, approximately 4 cm below the joint line, opening up proximally 1/16 distally to 1/8 of an inch proximally. However, the entire construct had excellent stability, so I proce eded at this point with the distal femur. With the distal femur now reexposed, given the very small nature of the femoral bone as well as thethin bone in general, I opted to not place a sleeve in the femur. The bone itself was otherwise supportive enough for standard revision instrumentation, so I reamed up to a size 13 and I chose a size12. I rechecked my 5 degree distal femoral valgus cut, and I needed a 4 mm augment to mediolaterally. I marked off the epicondylar axis. I then initially sized it to a size 4, but felt that this was too large, with regards to overall size and flexion/extension balance. I downsized it to a size 3. Ishifted it 4 mm posteriorly to close down the gap anteriorly and allow a flush fit. The 4:1 cutting[address] was pinned into place. The cuts were performed. Instrumentation was removed. The trial component was placed. The knee was reduced, and I ultimately settled on a size 16 polyethylene as this optimized range of motion, balance and instability, 0 to 120, no instability or spin-out on the polyethylene. At this point, the patella was inspected, and I was able to easily pass a Bovie blade underneath it. I uses an oscillating saw to remove it. There was dtllozuk-pa-qyyhtn osteolysis on the medial sideof the patella with a defect of around 6 x 6 x 4 mm. The peg holes were removed. I sized the previous patella to a 35. I redrilled the holes. The 35 had full coverage of the remaining patella and thetrial fit securely. It demonstrated unchanged performance. At this point, the trial components were removed. The knee was brought out to extension. I palpatedposteriorly. I did not see any visible evidence of oozing or bleeding. The knee was thoroughly irrigated, cleaned, dried and the final components were assembled on the back table. They were then cemented in, starting first with the tibia, cemented only at the level of the joint line. Impaction of the tibial component was controlled by the medial tibial periprosthetic split, taking great care not to extend this fracture and distally the split was only minimally opened at this stage. The femoral component was cemented in place. The knee was brought into extension with initially a 14 polyethylene while the patella was cemented. The periarticular injection was administered. Once complete polymerization had occurred, the tourniquet was let down. Hemostasis was obtained. I re-trialed the knee and I was pleased with the performance of the 16 as I felt this optimized range of motion, balance and instability. There was no instability or spin-out of the polyethylene with this construct and anatomic tracking of the patella. With the final polyethylene in place, the knee was irrigated, soaked with Betadine and irrigated further. I then took a combination of bone from the box cut, which I then minced up into smaller pieces and mixed it with the demineralized bone matrix. I then used a bone tamp and then pressed this into the opening of the proximal medial tibial paraprosthetic fracture as well as the defect on the distal femur anteromedial to the flange itself. This allowed complete coverage of the prosthetic and graftingof the defects on both sides. At this point, I turned my attention toward wound closure. The wound was irrigated, cleaned and closed with a 1 Vicryl around the pole of the patella and oversewn with #2 Quill, multiple layers of 0 Vicryl and 0 Quill for the subcuticular layer and jonah for the skin. Extremity was cleansed. Sterile dressing was applied. A hinge knee brace was applied over this. The patient was awakened from the anesthetic, extubated and taken to the postoperative careunit in stable condition. POSTOPERATIVE PLAN OF CARE: 1. We will plan on non weight bearing for 6 weeks. 2. We will plan for 0 to 30 range of motion in hinged knee brace until the first postoperative visit assuming radiographic integrity. We will likely advance this 10 to 15 degrees per week. 3. DVT, both mechanical and chemical. 4. Antibiotics 24 hours postoperatively. We will follow with postoperative cultures. 5. Follow up in the office in 2 weeks. Staple removal in 10-14 days. ATTENDING/ ASSISTING PARTICIPATION: This operation could not have been safely performed (without compromising the technical results or length of the procedure) without the assistance of a skilled surgical instrument maker. A surgical instrument maker was medically necessary for positioning, retraction and instrum entation. [facility] [employer] [id number] Note* Nursing Notes - Prerna Holden RN - 06/09/2022 5:19 PM EDT Patient arrives back to room 3755 at this time. Report received. Patient complains of a slight acheto her right knee but states this is tolerable. Ice in place. TROM in place. Onq unclamped at 2ml/hr. Dressing to right knee dry and intact. Hemovac draining. IV infusing without difficulty. Pulses palpable. Otherwise assessment is unchanged from previous. Post-op vitals started, tele applied. Menuprovided with ice water and ice chips. Call light and personals in reach. Will monitor. [facility] [employer] [id number] Nurse Note* Martha Unger RN - 06/09/2022 4:58 PM EDT This nurse transfers patient from PACU to room 3755. Patient's family is at bedside. Patient is alert,oriented and stable. Anesthesia SBAR and bedside report is given to Prerna BUCHANAN. Bed is locked, inlowest position and call light in reach of patient * Alon Duke RN - 06/09/2022 4:34 PM EDT Patient transported to PACU with Micha CARBONE. Report given to Martha BUCHANAN at 1628H. * Jo Downs RN - 06/09/2022 1:10 PM EDT OR3 temp 67 deg F, humidity 47% documented in [facility] encounter[facility] Nurse Surgical operation note* Martha Unger RN - 06/09/2022 4:58 PM EDT This nurse transfers patient from PACU to room 3755. Patient's family is at bedside. Patient is alert,oriented and stable. Anesthesia SBAR and bedside report is given to Prerna BUCHANAN. Bed is locked, inlowest position and call light in reach of patient [facility]03-20-2023 Consult note* Perry Henderson MD - 06/09/2022 4:57 PM EDT History and Physical Examination 06/09/22 4:57 PM Chief Complaint: Right knee revision History of Present Illness: Patient is a 71 y.o. female presents for [facility] for right knee revision Dr. Clark June 09 Internal medicine services consult added for hypertension hyperlipidemia history of gout history ofchronic use of NSAIDs chronic kidney disease stage III hyponatremia history of atrial fibrillation and COPD Patient seen in the recovery room After this surgery patient complains of no chest pain or shortness of breath no palpitations no nausea no abdominal pain. Today the patient denies headaches, blurred vision, lightheadedness, fever, chills, chest pain, shortness of breath. The patient denies back pain, nausea, vomiting, diarrhea/constipation, dysuria, unusual arthralgias, myalgias, skin rashes or lesions. 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 Crain APPENDECTOMY BREAST BIOPSY Bilateral TONSILLECTOMY Social History Tobacco Use Smoking status: Former Types: Cigarettes Quit date: 01/2022 Years since quittin.3 Smokeless tobacco: Never Substance Use Topics Alcohol use: Yes Comment: occasional Family History Problem Relation Age of Onset Bleeding or Clotting Problems Mother hx of PE Bleeding or Clotting Problems Daughter hx of DVT Prior to Admission medications Medication Sig Start Date End Date Taking? Authorizing Provider albuterol 108 (90 Base) MCG/ACT Aero Soln inhaler albuterol sulfate HFA 90 mcg/actuation aerosol inhaler INHALE 2 PUFFS EVERY 4 HOURS NEEDED FOR SHORTNESS OF BREATH Yes Historical Provider allopurinol 300 MG tablet Take 1 tablet by mouth daily. Yes Historical Provider cloNIDine 0.1 MG tablet Take 1 tablet by mouth 2 times daily. Yes Historical Provider diltiazem 240 MG Cap SR 24HR Take 1 capsule by mouth 2 times daily. Yes Historical Provider DULoxetine [address] Particles capsule DR Take 1 capsule by mouth daily. 11/05/21 Yes Historical Provider Ecxxdgatpfi-Iyggwozhc-Chdudo (Trelegy Ellipta) 100-62.5-25 MCG/INH Aerosol Powder, breath activatedinhaler Inhale 1 puff daily. Yes Historical Provider Folic Acid 800 MCG tablet Take by mouth daily. Yes Historical Provider furOSEmide 20 MG tablet TAKE 1 TABLET BY MOUTH EVERY DAY FOR 90 DAYS 11/26/21 Yes Historical Provider Rosuvastatin 20 MG tablet Take 1 tablet by mouth daily. am 12/24/21 Yes Historical Provider Spironolactone 25 MG tablet Take 1 tablet by mouth daily. 12/31/21 Yes Historical Provider Varenicline Tartrate, Starter, (Chantix Starting Month ) 0.5 MG X 11 & 1 MG X 42 Tab TherapyPack Take 1 mg by mouth 2 times daily. Yes Historical Provider Acetaminophen 325 MG tablet Take 2 tablets by mouth every 4 hours as needed for Mild Pain. Do not exceed 4000mg of Tylenol in 24 hour period. 06/09/22 Jerilyn Baig apixaban 2.5 MG tablet Take 1 tablet by mouth every 12 hours for 5 days. Once complete, begin regimen of Eliquis 5mg twice a day. 06/09/22 06/14/22 Jerilyn Baig apixaban 5 MG tablet Take 1 tablet by mouth every 12 hours. This medication is for blood clot prevention 06/09/22 07/09/22 Jerilyn Baig colchicine 0.6 MG tablet colchicine 0.6 mg tablet TAKE 1 TABLET BY MOUTH EVERY DAY NEEDED FOR FLARE Historical Provider Docusate 100 MG capsule Take 1 capsule by mouth 2 times daily. Hold for loose stools. 06/09/22 Jerilyn Baig Loratadine 10 MG tablet Take 1 tablet by mouth as needed. Historical Provider omeprazole [address] capsule Take 1 capsule by mouth daily. 06/09/22 Jerilyn Baig oxyCODONE 5 MG tablet Take one to two tabs every 4-6 hours as needed for severe pain. Wean as tolerated 06/09/22 06/16/22 Jerilyn Baig therapeutic multivitamin-minerals tablet Take 1 tablet by mouth at bedtime. 06/09/22 Jerilyn Baig Medications Prior to Admission Medication Sig Dispense Refill Last Dose albuterol 108 (90 Base) MCG/ACT Aero Soln inhaler albuterol sulfate HFA 90 mcg/actuation aerosol inhaler INHALE 2 PUFFS EVERY 4 HOURS NEEDED FOR SHORTNESS OF BREATH Past Week allopurinol 300 MG tablet Take 1 tablet by mouth daily. 06/08/2022 at 900 cloNIDine 0.1 MG tablet Take 1 tablet by mouth 2 times daily. 06/09/2022 at 900 diltiazem 240 MG Cap SR 24HR Take 1 capsule by mouth 2 times daily. 06/09/2022 at 900 [address] Particles capsule DR Take 1 capsule by mouth daily. 06/08/2022 at 900 Ibbfeqbambr-Yqhqrciao-Lvkans (Trelegy Ellipta) 100-62.5-25 MCG/INH Aerosol Powder, breath activatedinhaler Inhale 1 puff daily. 06/09/2022 Folic Acid 800 MCG tablet Take by mouth daily. 06/08/2022 at 900 furOSEmide 20 MG tablet TAKE 1 TABLET BY MOUTH EVERY DAY FOR 90 DAYS 06/08/2022 at 900 Rosuvastatin 20 MG tablet Take 1 tablet by mouth daily. am 06/09/2022 Spironolactone 25 MG tablet Take 1 tablet by mouth daily. 06/08/2022 at 900 Varenicline Tartrate, Starter, (Chantix Starting Month ) 0.5 MG X 11 & 1 MG X 42 Tab TherapyPack Take 1 mg by mouth 2 times daily. 06/08/2022 at 900 [DISCONTINUED] acetaminophen 650 MG Tab CR Every 8 hours. 06/09/2022 at 1100 colchicine 0.6 MG tablet colchicine 0.6 mg tablet TAKE 1 TABLET BY MOUTH EVERY DAY NEEDED FOR FLARE More than a month Loratadine 10 MG tablet Take 1 tablet by mouth as needed. More than a month [DISCONTINUED] Cholecalciferol 25 MCG (1000 UT) capsule Take 1 capsule by mouth daily. 06/02/2022 at900 [DISCONTINUED] meloxicam 15 MG tablet Take 15 mg by mouth daily. (Patient not taking: Reported on 05/09/2022) [DISCONTINUED] traMADol 50 MG tablet 1-2 tabs every 6 hours as needed for severe pain 20 tablet 0 No Known Allergies Review of Systems: Review of Systems Constitutional: Positive for fatigue. Negative for unexpected weight change. HENT: Negative for congestion, facial swelling and voice change. Eyes: Negative for pain. Respiratory: Positive for cough. Negative for shortness of breath. Cardiovascular: Negative for palpitations and leg swelling. Gastrointestinal: Negative for abdominal distention. Endocrine: Negative for cold intolerance and heat intolerance. Genitourinary: Negative for dysuria and urgency. Musculoskeletal: Positive for arthralgias. Negative for gait problem and myalgias. Skin: Negative for rash. Allergic/Immunologic: Negative for immunocompromised state. Neurological: Positive for weakness. Negative for seizures. Hematological: Does not bruise/bleed easily. Psychiatric/Behavioral: Negative for dysphoric mood. PHYSICAL EXAM: Patient Vitals for the past 8 hrs: BP Temp Temp src Pulse Resp SpO2 Height Weight 06/09/22 1638 135/64 -- -- 55 15 99 % -- -- 06/09/22 1633 139/55 -- -- 55 20 100 % -- -- 06/09/22 1628 149/67 98 F (36.7 C) Temporal 55 16 99 % -- -- 06/09/22 1043 152/78 98.6 F (37 C) Oral 71 15 96 % 1.549 m (5' 1 ) 102.3 kg (225 lb 8 oz) I/O last 3 completed shifts: In: - Out: 50 [Urine:50] Physical Exam Vitals and nursing note reviewed. Constitutional: General: She is not in acute distress. Appearance: She is obese. She is not diaphoretic. HENT: Head: Atraumatic. Eyes: Extraocular Movements: Extraocular movements intact. Pupils: Pupils are equal, round, and reactive to light. Neck: Vascular: No JVD. Trachea: No tracheal deviation. Cardiovascular: Rate and Rhythm: Normal rate and regular rhythm. Heart sounds: No murmur heard. Pulmonary: Effort: Pulmonary effort is normal. No respiratory distress. Breath sounds: Decreased air movement present. Decreased breath sounds present. No wheezing, rhonchi or rales. Abdominal: General: Bowel sounds are normal. There is no distension. Palpations: Abdomen is soft. Tenderness: There is no abdominal tenderness. Musculoskeletal: General: Normal range of motion. Cervical back: Neck supple. Right lower leg: Edema present. Left lower leg: Edema present. Lymphadenopathy: Cervical: No cervical adenopathy. Skin: General: Skin is warm and dry. Capillary Refill: Capillary refill takes less than 2 seconds. Findings: No erythema or rash. Neurological: Mental Status: She is alert and oriented to person, place, and time. Motor: Weakness present. Gait: Gait abnormal. Psychiatric: Judgment: Judgment normal. Diagnostics: Lab Results Component Value Date WBC 10.1 05/15/2022 HGB 12.5 05/15/2022 HCT 38.2 05/15/2022 PLATELET 367 05/15/2022 MCV 95.1 05/15/2022 @LASTMAGNESIUM(1D,2)@ Lab Results Component Value Date INR 1.28 (H) 05/15/2022 PT 16.0 (H) 05/15/2022 Lab Results Component Value Date CREATSERUM 1.70 (H) 05/15/2022 BUN 35 (H) 05/15/2022 SODIUM 133 (L) 05/15/2022 POTASSIUM 4.3 05/15/2022 CHLORIDE 100 05/15/2022 CO2 23 05/15/2022 Lab Results Component Value Date SPGRVTYUR 1.015 05/15/2022 GLUCOSEURINE NEGATIVE 05/15/2022 BILIRUBINURI NEGATIVE 05/15/2022 KETONESURINE NEGATIVE 05/15/2022 NITRITESURIN NEGATIVE 05/15/2022 LEUKOCESTUR NEGATIVE 05/15/2022 WBCURINE 1 TO 5 05/15/2022 RBCURINE 1 TO 5 05/15/2022 BACTERIAURIN TRACE (A) 05/15/2022 Full Code XR KNEE RIGHT 2 VIEWS Impression and Plan: Present on Admission: Benign hypertension Mixed hyperlipidemia Idiopathic chronic gout of multiple sites without tophus intermediate designer (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 non-steroidal anti-inflammatories (nsaid) Stage 3a chronic kidney disease Hyponatremia Paroxysmal atrial fibrillation 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 History of atrial fibrillation continue with Cardizem twice daily 4. Hypertension we will continue with home medications clonidine twice daily hold for blood pressure less than 120 mm Hg 5. History of COPD continue with DuoNeb breathing treatments and will give Advair twice daily 6. Hyperlipidemia continue with statins 7. Chronic kidney disease will continue with allopurinol and we will monitor renal function 8. Hyponatremia continue monitor renal function 9. Obesity and high risk for obstructive sleep apnea continue to monitor for opiates pain medication side effects 10. History of diuretic use will resume home medications and continue to encourage by mouth fluids and monitor renal function and urine output, last stress test done 06/03 showed ejection fraction within normal range PT OT SS for dc planning GI/DVT prophylaxis with Famotidine and DOAC This plan of care was initiated in collaboration with PT, OT, ST and SW. Perry Henderson MD [facility]03-20-2023 Consult note* Perry Henderson MD - 06/09/2022 4:57 PM EDT History and Physical Examination 06/09/22 4:57 PM Chief Complaint: Right knee revision History of Present Illness: Patient is a 71 y.o. female presents for [facility] for right knee revision Dr. Clark June 09 Internal medicine services consult added for hypertension hyperlipidemia history of gout history ofchronic use of NSAIDs chronic kidney disease stage III hyponatremia history of atrial fibrillation and COPD Patient seen in the recovery room After this surgery patient complains of no chest pain or shortness of breath no palpitations no nausea no abdominal pain. Today the patient denies headaches, blurred vision, lightheadedness, fever, chills, chest pain, shortness of breath. The patient denies back pain, nausea, vomiting, diarrhea/constipation, dysuria, unusual arthralgias, myalgias, skin rashes or lesions. 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 Crain APPENDECTOMY BREAST BIOPSY Bilateral TONSILLECTOMY Social History Tobacco Use Smoking status: Former Types: Cigarettes Quit date: 01/2022 Years since quittin.3 Smokeless tobacco: Never Substance Use Topics Alcohol use: Yes Comment: occasional Family History Problem Relation Age of Onset Bleeding or Clotting Problems Mother hx of PE Bleeding or Clotting Problems Daughter hx of DVT Prior to Admission medications Medication Sig Start Date End Date Taking? Authorizing Provider albuterol 108 (90 Base) MCG/ACT Aero Soln inhaler albuterol sulfate HFA 90 mcg/actuation aerosol inhaler INHALE 2 PUFFS EVERY 4 HOURS NEEDED FOR SHORTNESS OF BREATH Yes Historical Provider allopurinol 300 MG tablet Take 1 tablet by mouth daily. Yes Historical Provider cloNIDine 0.1 MG tablet Take 1 tablet by mouth 2 times daily. Yes Historical Provider diltiazem 240 MG Cap SR 24HR Take 1 capsule by mouth 2 times daily. Yes Historical Provider DULoxetine [address] Particles capsule DR Take 1 capsule by mouth daily. 11/05/21 Yes Historical Provider Hsyoywxdzgn-Plitlgwkc-Wxiuzy (Trelegy Ellipta) 100-62.5-25 MCG/INH Aerosol Powder, breath activatedinhaler Inhale 1 puff daily. Yes Historical Provider Folic Acid 800 MCG tablet Take by mouth daily. Yes Historical Provider furOSEmide 20 MG tablet TAKE 1 TABLET BY MOUTH EVERY DAY FOR 90 DAYS 11/26/21 Yes Historical Provider Rosuvastatin 20 MG tablet Take 1 tablet by mouth daily. am 12/24/21 Yes Historical Provider Spironolactone 25 MG tablet Take 1 tablet by mouth daily. 12/31/21 Yes Historical Provider Varenicline Tartrate, Starter, (Chantix Starting Month ) 0.5 MG X 11 & 1 MG X 42 Tab TherapyPack Take 1 mg by mouth 2 times daily. Yes Historical Provider Acetaminophen 325 MG tablet Take 2 tablets by mouth every 4 hours as needed for Mild Pain. Do not exceed 4000mg of Tylenol in 24 hour period. 06/09/22 Jerilyn Baig apixaban 2.5 MG tablet Take 1 tablet by mouth every 12 hours for 5 days. Once complete, begin regimen of Eliquis 5mg twice a day. 06/09/22 06/14/22 Jerilyn Baig apixaban 5 MG tablet Take 1 tablet by mouth every 12 hours. This medication is for blood clot prevention 06/09/22 07/09/22 Jerilyn Baig colchicine 0.6 MG tablet colchicine 0.6 mg tablet TAKE 1 TABLET BY MOUTH EVERY DAY NEEDED FOR FLARE Historical Provider Docusate 100 MG capsule Take 1 capsule by mouth 2 times daily. Hold for loose stools. 06/09/22 Jerilyn Baig Loratadine 10 MG tablet Take 1 tablet by mouth as needed. Historical Provider omeprazole [address] capsule Take 1 capsule by mouth daily. 06/09/22 Jerilyn Baig oxyCODONE 5 MG tablet Take one to two tabs every 4-6 hours as needed for severe pain. Wean as tolerated 06/09/22 06/16/22 Jerilyn Baig therapeutic multivitamin-minerals tablet Take 1 tablet by mouth at bedtime. 06/09/22 Jerilyn Baig Medications Prior to Admission Medication Sig Dispense Refill Last Dose albuterol 108 (90 Base) MCG/ACT Aero Soln inhaler albuterol sulfate HFA 90 mcg/actuation aerosol inhaler INHALE 2 PUFFS EVERY 4 HOURS NEEDED FOR SHORTNESS OF BREATH Past Week allopurinol 300 MG tablet Take 1 tablet by mouth daily. 06/08/2022 at 900 cloNIDine 0.1 MG tablet Take 1 tablet by mouth 2 times daily. 06/09/2022 at 900 diltiazem 240 MG Cap SR 24HR Take 1 capsule by mouth 2 times daily. 06/09/2022 at 900 [address]UL[address] Particles capsule DR Take 1 capsule by mouth daily. 06/08/2022 at 900 Wrqwdoaroiq-Xbbrrawqi-Szvnny (Trelegy Ellipta) 100-62.5-25 MCG/INH Aerosol Powder, breath activatedinhaler Inhale 1 puff daily. 06/09/2022 Folic Acid 800 MCG tablet Take by mouth daily. 06/08/2022 at 900 furOSEmide 20 MG tablet TAKE 1 TABLET BY MOUTH EVERY DAY FOR 90 DAYS 06/08/2022 at 900 Rosuvastatin 20 MG tablet Take 1 tablet by mouth daily. am 06/09/2022 Spironolactone 25 MG tablet Take 1 tablet by mouth daily. 06/08/2022 at 900 Varenicline Tartrate, Starter, (Chantix Starting Month ) 0.5 MG X 11 & 1 MG X 42 Tab TherapyPack Take 1 mg by mouth 2 times daily. 06/08/2022 at 900 [DISCONTINUED] acetaminophen 650 MG Tab CR Every 8 hours. 06/09/2022 at 1100 colchicine 0.6 MG tablet colchicine 0.6 mg tablet TAKE 1 TABLET BY MOUTH EVERY DAY NEEDED FOR FLARE More than a month Loratadine 10 MG tablet Take 1 tablet by mouth as needed. More than a month [DISCONTINUED] Cholecalciferol 25 MCG (1000 UT) capsule Take 1 capsule by mouth daily. 06/02/2022 at900 [DISCONTINUED] meloxicam 15 MG tablet Take 15 mg by mouth daily. (Patient not taking: Reported on 05/09/2022) [DISCONTINUED] traMADol 50 MG tablet 1-2 tabs every 6 hours as needed for severe pain 20 tablet 0 No Known Allergies Review of Systems: Review of Systems Constitutional: Positive for fatigue. Negative for unexpected weight change. HENT: Negative for congestion, facial swelling and voice change. Eyes: Negative for pain. Respiratory: Positive for cough. Negative for shortness of breath. Cardiovascular: Negative for palpitations and leg swelling. Gastrointestinal: Negative for abdominal distention. Endocrine: Negative for cold intolerance and heat intolerance. Genitourinary: Negative for dysuria and urgency. Musculoskeletal: Positive for arthralgias. Negative for gait problem and myalgias. Skin: Negative for rash. Allergic/Immunologic: Negative for immunocompromised state. Neurological: Positive for weakness. Negative for seizures. Hematological: Does not bruise/bleed easily. Psychiatric/Behavioral: Negative for dysphoric mood. PHYSICAL EXAM: Patient Vitals for the past 8 hrs: BP Temp Temp src Pulse Resp SpO2 Height Weight 06/09/22 1638 135/64 -- -- 55 15 99 % -- -- 06/09/22 1633 139/55 -- -- 55 20 100 % -- -- 06/09/22 1628 149/67 98 F (36.7 C) Temporal 55 16 99 % -- -- 06/09/22 1043 152/78 98.6 F (37 C) Oral 71 15 96 % 1.549 m (5' 1 ) 102.3 kg (225 lb 8 oz) I/O last 3 completed shifts: In: - Out: 50 [Urine:50] Physical Exam Vitals and nursing note reviewed. Constitutional: General: She is not in acute distress. Appearance: She is obese. She is not diaphoretic. HENT: Head: Atraumatic. Eyes: Extraocular Movements: Extraocular movements intact. Pupils: Pupils are equal, round, and reactive to light. Neck: Vascular: No JVD. Trachea: No tracheal deviation. Cardiovascular: Rate and Rhythm: Normal rate and regular rhythm. Heart sounds: No murmur heard. Pulmonary: Effort: Pulmonary effort is normal. No respiratory distress. Breath sounds: Decreased air movement present. Decreased breath sounds present. No wheezing, rhonchi or rales. Abdominal: General: Bowel sounds are normal. There is no distension. Palpations: Abdomen is soft. Tenderness: There is no abdominal tenderness. Musculoskeletal: General: Normal range of motion. Cervical back: Neck supple. Right lower leg: Edema present. Left lower leg: Edema present. Lymphadenopathy: Cervical: No cervical adenopathy. Skin: General: Skin is warm and dry. Capillary Refill: Capillary refill takes less than 2 seconds. Findings: No erythema or rash. Neurological: Mental Status: She is alert and oriented to person, place, and time. Motor: Weakness present. Gait: Gait abnormal. Psychiatric: Judgment: Judgment normal. Diagnostics: Lab Results Component Value Date WBC 10.1 05/15/2022 HGB 12.5 05/15/2022 HCT 38.2 05/15/2022 PLATELET 367 05/15/2022 MCV 95.1 05/15/2022 @LASTMAGNESIUM(1D,2)@ Lab Results Component Value Date INR 1.28 (H) 05/15/2022 PT 16.0 (H) 05/15/2022 Lab Results Component Value Date CREATSERUM 1.70 (H) 05/15/2022 BUN 35 (H) 05/15/2022 SODIUM 133 (L) 05/15/2022 POTASSIUM 4.3 05/15/2022 CHLORIDE 100 05/15/2022 CO2 23 05/15/2022 Lab Results Component Value Date SPGRVTYUR 1.015 05/15/2022 GLUCOSEURINE NEGATIVE 05/15/2022 BILIRUBINURI NEGATIVE 05/15/2022 KETONESURINE NEGATIVE 05/15/2022 NITRITESURIN NEGATIVE 05/15/2022 LEUKOCESTUR NEGATIVE 05/15/2022 WBCURINE 1 TO 5 05/15/2022 RBCURINE 1 TO 5 05/15/2022 BACTERIAURIN TRACE (A) 05/15/2022 Full Code XR KNEE RIGHT 2 VIEWS Impression and Plan: Present on Admission: Benign hypertension Mixed hyperlipidemia Idiopathic chronic gout of multiple sites without tophus intermediate designer (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 non-steroidal anti-inflammatories (nsaid) Stage 3a chronic kidney disease Hyponatremia Paroxysmal atrial fibrillation 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 History of atrial fibrillation continue with Cardizem twice daily 4. Hypertension we will continue with home medications clonidine twice daily hold for blood pressure less than 120 mm Hg 5. History of COPD continue with DuoNeb breathing treatments and will give Advair twice daily 6. Hyperlipidemia continue with statins 7. Chronic kidney disease will continue with allopurinol and we will monitor renal function 8. Hyponatremia continue monitor renal function 9. Obesity and high risk for obstructive sleep apnea continue to monitor for opiates pain medication side effects 10. History of diuretic use will resume home medications and continue to encourage by mouth fluids and monitor renal function and urine output, last stress test done 06/03 showed ejection fraction within normal range PT OT SS for dc planning GI/DVT prophylaxis with Famotidine and DOAC This plan of care was initiated in collaboration with PT, OT, ST and SW. Perry Henderson MD [facility] Nurse Surgical operation note* Alon Duke RN - 06/09/2022 4:34 PM EDT Patient transported to PACU with Micha CARBONE. Report given to Martha BUCHANAN at 1628H. [facility]03-20-2023 Note* Brief Op Note - Jerilyn Baig - 06/09/2022 4:28 PM EDT POST OPERATIVE/PROCEDURE NOTE Sd Rehman 71 y.o. female [id number] SURGEON Surgeon(s) and Role: * Navin Clrak MD - Primary WEBSPHERE PROCESS SERVER DEVELOPER Jerilyn Baig ANESTHESIOLOGIST INSTRUCTIONAL MATERIAL DIRECTOR: Micha Bailey APRN-INSTRUCTIONAL MATERIAL DIRECTOR SURGICAL STAFF Storage Battery Charger: Jo Downs, DEWAYNE; Nicole Swanson, RN; Alon Duke, RN; Anabelle Vasquez RN Nurse Practitioner: Jerilyn Baig Scrub Person: Gordon Burnett RN; Ciara Boyd LPN; Dannielle Farnsworth RN Manifest Clerk: Yoshi Hernandez LPN PROCEDURE PERFORMED Procedure(s) (LRB): REVISION ARTHROPLASTY KNEE (Right) Periarticular injection right knee Right adductor canal catheter placement PRIMARY CLOSURE yes ANESTHESIA (type of) General ESTIMATED BLOOD LOSS 50ml DRAINS MED HV BLOOD PRODUCTS None PRE OPERATIVE DIAGNOSIS 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 Item Serial No. Rn Burn Lot No. LRB No. Used Action PALACOS R & G BONE CEMENT HIGH-VISCOSITY WITH GENTAMICIN - [id number] PALACOS R & G BONE CEMENT HIGH-VISCOSITY WITH GENTAMICIN [id number] Right 1 Implanted PALACOS R & G BONE CEMENT HIGH-VISCOSITY WITH GENTAMICIN - [id number] PALACOS R & G BONE CEMENT HIGH-VISCOSITY WITH GENTAMICIN [id number] Right 1 Implanted PALACOS R & G BONE CEMENT HIGH-VISCOSITY WITH GENTAMICIN - [id number] PALACOS R & G BONE CEMENT HIGH-VISCOSITY WITH GENTAMICIN [id number] Right 1 Implanted ATTUNE knee system revision tibial base rotating platform size 2 cemented [employer] [id number] Right 1 Implanted Attune knee system revision tibial sleeve porocoat partially coated 29mm [employer] [id number] Right 1 Implanted Attune Knee System revision Pressfit stem 12mm x 60mm [employer] [id number] Right 1 Implanted Attune Knee system revision Pressfit Stem 10mm x 60mm [employer] [id number] Right 1 Implanted Attune knee system Revision CRS Femoral size 3 Right Cemented [employer] [id number] Right 1Implanted Attune Patella Medialized Dome 35mm Cemented AOX [employer] [id number] Right 1 Implanted Attune Knee system Revision Distal femoral AUgment size 3 4mm cemented [employer] [id number] Right 1 Implanted Attune knee system revision Distal femoral augment size 3 4mm Cemented [employer] [id number] Right 1 Implanted Attune knee system revision offset stem adaptor 4mm [employer] [id number] Right 1 Implanted Moldable demineralized fibers [employer] Right 1 Implanted Attune Knee system Revision CRS Rotating Platform Insert size 3 16mm AOX [employer] [id number] Right 1 Implanted SPECIMENS ID Type Source Tests Collected by Time Destination A : right knee incisional fluid (1-2) Surgical Wound SURGICAL WOUND FUNGUS CULTURE, ANAEROBE CULTURE, BACTERIAL CULTURE AND DIRECT SMEAR, LESION, TISSUE, DEVICE Navin Clark MD 06/09/2022 1403 B : right knee medial synovium (1-3) Surgical Wound SURGICAL WOUND FUNGUS CULTURE, ACID FAST CULTURE, ANAEROBE CULTURE, BACTERIAL CULTURE AND DIRECT SMEAR, LESION, TISSUE, DEVICE Navin Clark MD 06/09/2022 1408 C : right knee lateral synovium (1-3) Surgical Wound SURGICAL WOUND FUNGUS CULTURE, ACID FAST CULTURE, ANAEROBE CULTURE, BACTERIAL CULTURE AND DIRECT SMEAR, LESION, TISSUE, DEVICE Navin Clark MD 06/09/2022 1410 Jerilyn Baig June 09, 2022 4:28 PM T [facility]03-20-2023 Nurse Surgical operation note* Jo Downs RN - 06/09/2022 1:10 PM EDT OR3 temp 67 deg F, humidity 47% [facility]03-20-2023 Note* Certification - Perry Henderson MD - 06/09/2022 11:54 AM EDT I certify that this patient requires inpatient services at this time. I anticipate the expected length of stay will include at least two midnights. Inpatient services are due to the following medicalconcerns need for PT,OT, and medical management following hospital stay for Right knee revision. Plans for post hospitalization care will be discharge to home with home health. [facility]02-23-2023 Note* Nursing Notes - Angelina Rick RN - 05/15/2022 1:58 PM EST Patient was assessed in [facility] on 05/15/2022 Met with patient for follow up after surgery to discuss discharge plan. Patient has a walker and denies any equipment needs at this time. Patient states that she is currently independent. Patient denies having a living will or DPO. Patient states that they have multiple family members willing to assist after surgery. Patient requesting to use [facility] health upon discharge. 05/15/22 5127 Information Source Information Source patient Information Source Name Sd Rehman Contact Information Application Assistant/SW Added to Care Team Yes This Demolition Crane Operator is Primary Application Assistant/SW Yes Application Assistant Name Angelina Rick RN Case Manager's Living Environment Lives With alone Living Arrangements house (Pt states she lives in a two story home.) Provides Primary Care For no one Primary Care Provided By self Support System Immediate family Able to Return to Prior Arrangements yes Employment/Financial Employed? Retired Employment/Financial Concerns no Source Of Income none Financial Concerns none Cognitive/Perceptual/Developmental Current Mental Status/Cognitive Functioning no deficits noted Emotional/Psychological Mental Health Conditions/Symptoms denies Referral Information Referral Source outpatient staff: outpatient clinic Patient denies any other questions or needs at this time. [facility]02-10-2023 NoteHNO ID: [id number] Author: Dennis Lomas MD Service: ? Author Type: Physician Type: Progress Notes Filed: 05/10/2022 10:42 AM Note Text: NAME: Sd Rehman NO.: [id number] DATE OF SERVICE: May 02, 2022 (Abhaileehi) Some elements in this clinic note that are critical to medical decision making have been carefully reviewed and included from a prior clinic note dated: February 28, 2022 (Feliciano) Referring Provider: Odell Jones Additional Clinicians involved in Sd Rehman's care: Olivia Devries DIAGNOSIS: leukocytosis ASSESSMENT: 71 year old with chronic leukocytosis and multiple pro inflammatory causes. This appears to be primarily related to her inflamed right knee implant is causing significant mount of pain. She additionally has recently quit smoking but more likely has chronic inflammation related to this again causing a chronic leukocytosis that is mostly neutrophilic in nature. This process is unlikely to be a primary issue and is most likely secondary. However, it warranted monitoring and I saw in April with repeat laboratories that remain consistent with inflammatory process. I will see her after her planned surgery and pursue workup if indicated. Clear from my perspective to proceed with knee repair. PLAN: Proceed with knee replacement / repair as scheduled. RTC in 1st week of july 2022 Repeat labs HPI: CASE HISTORY: Reverse Chronological Order 02/17/2022 CBC: 13.6 > 14.0/41.8 < 397, MCV 100.5 11/21/2021 CBC: 13.4 > 12.1/35.9 < 254 absolute neutrophils 10,000, absolute lymphocytes 2000. MCV 102.3 RDW 16.3. 09/27/2021 protein electrophoresis with immunofixation negative for M spike normal kappa lambda ratio. 09/19/2021 CBC 10.3 > 13.4/40.6 < 268, absolute neutrophils 7000, absolute lymphocytes 2300, MCV 101 Updated Visit, May 02, 2022: Here with daughter Muna - WBC still elevated but stable. Markers of inflammation rechecked and are pending today. I still believe this is related to her knee inflammation and not an underlying myeloproliferative disorder. Initial Visit, February 28, 2022: Sd Rehman presents today Hematology and Oncology evaluation. She is a 71 year old female who Is accompanied by her daughter Jacy for evaluation of leukocytosis. She has a prior history of chronic kidney disease stage IIIb, in addition to lumbar radiculopathy as well as bilateral knee replacements that are in need of revision. She also has a history of atrial fibrillation, COPD, gout, hypertension. Additionally she is a smoker 50 pack years and quit smoking approximately 3 weeks ago. Pertinent laboratories noted above in Case History. Sd has a significant amount of pain in her right knee in particular. She really needs her knee revised and she tells me that the implant is currently loose at the point of insertion causing a significant degree of pain and inflammation. She has had an arthrocentesis done and fluid was positive with white blood cells per her report. Given her history, she has multiple pro inflammatory factors that are likely contributing to her chronic leukocytosis. REVIEW OF SYSTEMS Per HPI and otherwise negative by full review of organ systems. ECOG PERFORMANCE STATUS: 1 PHYSICAL EXAMINATION: Vitals: BP 149/74 Pulse 94 Temp (Src) 97.2 (Temporal) Resp 16 Ht 5' 2.008 (1.58m) Wt 223 lb 9.6 oz (101.4kg) SpO2 97% BMI 40.89 kg/(m2). Body surface area is 2.11 meters squared. Exam limited to gross visualization where appropriate due to COVID-19. Gen.: This is an age-appropriate patient in no acute distress while seated, however, she has significant amount of difficulty standing and ambulating even with an assist device. Both legs are swollen chronically. Head: Appears atraumatic with no visible lesions. Eyes: Pupils equally round and reactive to light, extraocular muscles are intact. Neck: Supple. Mouth: Masked. Respiratory: Appears to be respiring comfortably. Neurologic: Nonfocal to gross visualization. Alert and oriented ?3. Psychiatric: No evidence of inappropriate anxiety or depression. Skin: Visible areas of skin without rash, lesions, wounds or petechiae. ALLERGIES: ALLERGIES No Known Allergies MEDICATIONS: rosuvastatin (CRESTOR) 20 mg tablet Take 20 mg by mouth once daily. spironolactone (ALDACTONE) 25 mg tablet Take 25 mg by mouth once daily. acetaminophen 325 mg cap Take 500 capsules by mouth every 4 hours as needed. albuterol HFA (PROVENTIL HFA, VENTOLIN HFA) 90 mcg/actuation inhaler alb (more content not included)...[facility]02-10-2023 Instructions* Patient Instructions* Dennis Lomas MD - 05/02/2022 3:06 PM EST Proceed with knee replacement / repair as scheduled. RTC in 1st week of july 2022 Repeat labs [facility] History of Present illness Narrative* Dennis Lomas MD - 05/02/2022 2:56 PM EST Images from the original note were not included. NAME: Sd Rehman [facility] NO.: [id number] DATE OF SERVICE: May 02, 2022 (Feliciano) Some elements in this clinic note that are critical to medical decision making have been carefully reviewed and included from a prior clinic note dated: February 28, 2022 (Feliciano) Referring Provider: Odell Jones Additional Clinicians involved in Sd Roche Adriandenny's care: Olivia Devries DIAGNOSIS: leukocytosis ASSESSMENT: 71 year old with chronic leukocytosis and multiple pro inflammatory causes. This appears to be primarily related to her inflamed right knee implant is causing significant mount of pain. She additionally has recently quit smoking but more likely has chronic inflammation related to this again causing a chronic leukocytosis that is mostly neutrophilic in nature. This process is unlikely to be a primary issue and is most likely secondary. However, it warranted monitoring and I saw in April with repeat laboratories that remain consistent with inflammatory process. I will see her after her planned surgery and pursue workup if indicated. Clear from my perspective to proceed with knee repair. PLAN: Proceed with knee replacement / repair as scheduled. RTC in 1st week of july 2022 Repeat labs HPI: CASE HISTORY: Reverse Chronological Order 02/17/2022 CBC: 13.6 > 14.0/41.8 < 397, MCV 100.5 11/21/2021 CBC: 13.4 > 12.1/35.9 < 254 absolute neutrophils 10,000, absolute lymphocytes 2000. MCV 102.3 RDW 16.3. 09/27/2021 protein electrophoresis with immunofixation negative for M spike normal kappa lambda ratio. 09/19/2021 CBC 10.3 > 13.4/40.6 < 268, absolute neutrophils 7000, absolute lymphocytes 2300, MCV 101 Updated Visit, May 02, 2022: Here with daughter Muna - WBC still elevated but stable. Markers of inflammation rechecked and are pending today. I still believe this is related to her knee inflammation and not an underlying myeloproliferative disorder. Initial Visit, February 28, 2022: Sd Rehman presents today Hematology and Oncology evaluation. She is a 71 year old female who Is accompanied by her daughter Jacy for evaluation of leukocytosis. She has a prior history of chronic kidney disease stage IIIb, in addition to lumbar radiculopathy as well as bilateral knee replacements that are in need of revision. She also has a history of atrial fibrillation, COPD, gout, hypertension. Additionally she is a smoker 50 pack years and quit smoking approximately 3 weeks ago. Pertinent laboratories noted above in Case History. Sd has a significant amount of pain in her right knee in particular. She really needs her kneerevised and she tells me that the implant is currently loose at the point of insertion causing a significant degree of pain and inflammation. She has had an arthrocentesis done and fluid was positivewith white blood cells per her report. Given her history, she has multiple pro inflammatory factors that are likely contributing to her chronic leukocytosis. REVIEW OF SYSTEMS Per HPI and otherwise negative by full review of organ systems. ECOG PERFORMANCE STATUS: 1 PHYSICAL EXAMINATION: Vitals: BP 149/74 Pulse 94 Temp (Src) 97.2 (Temporal) Resp 16 Ht 5' 2.008 (1.58m) Wt 223lb 9.6 oz (101.4kg) SpO2 97% BMI 40.89 kg/(m^2). Body surface area is 2.11 meters squared. Exam limited to gross visualization where appropriate due to COVID-19. Gen.: This is an age-appropriate patient in no acute distress while seated, however, she has significant amount of difficulty standing and ambulating even with an assist device. Both legs are swollenchronically. Head: Appears atraumatic with no visible lesions. Eyes: Pupils equally round and reactive to light, extraocular muscles are intact. Neck: Supple. Mouth: Masked. Respiratory: Appears to be respiring comfortably. Neurologic: Nonfocal to gross visualization. Alert and oriented 3. Psychiatric: No evidence of inappropriate anxiety or depression. Skin: Visible areas of skin without rash, lesions, wounds or petechiae. ALLERGIES: ALLERGIES No Known Allergies MEDICATIONS: rosuvastatin (CRESTOR) 20 mg tablet Take 20 mg by mouth once daily. spironolactone (ALDACTONE) 25 mg tablet Take 25 mg by mouth once daily. acetaminophen 325 mg cap Take 500 capsules by mouth every 4 hours as needed. albuterol HFA (PROVENTIL HFA, VENTOLIN HFA) 90 mcg/actuation inhaler albuterol sulfate HFA 90 mcg/actuation aerosol inhaler INHALE 2 PUFFS EVERY 4 HOURS NEEDED FOR SHORTNESS OF BREATH allopurinol (ZYLOPRIM) 300 mg tablet allopurinol 300 mg tablet TAKE 1 TABLET BY MOUTH EVERY DAY Cholecalciferol, Vitamin D3, 25 mcg (1,000 unit) cap Take 1,000 Units by mouth. cloNIDine HCl (CATAPRES) 0.1 mg tablet clonidine HCl 0.1 mg tablet colchicine 0.6 mg tablet colchicine 0.6 mg tablet TAKE 1 TABLET BY MOUTH EVERY DAY NEEDED FOR FLARE dilTIAZem (CARDIZEM) 120 mg tablet Take 120 mg by mouth. DULoxetine (CYMBALTA) 60 mg capsule Take 60 mg by mouth. qjjhhqenutm-shfmmaltc-rfafdhmu (TRELEGY ELLIPTA) 100-62.5-25 mcg inhalation powder 1 puff furosemide (LASIX) 20 mg tablet TAKE 1 TABLET BY MOUTH EVERY DAY FOR 90 DAYS heparin 10 unit/mL injection Inject 5 mL intravenously. loratadine (CLARITIN) 10 mg tablet Take 10 mg by mouth. lovastatin 40 mg tablet Take 40 mg by mouth. meloxicam (MOBIC) 15 mg tablet Take 15 mg by mouth. metoprolol succinate ER (TOPROL XL) 100 mg Take 100 mg by mouth. rivaroxaban (XARELTO) 20 mg tablet Xarelto 20 mg tablet TAKE 1 TABLET BY MOUTH EVERY DAY varenicline (CHANTIX) 1 mg tablet Take 1 mg by mouth. LABORATORY VALUES: WBC (k/uL) Date Value 05/02/2022 13.82 (H) RBC (m/uL) Date Value 05/02/2022 3.96 Hemoglobin (g/dL) Date Value 05/02/2022 12.4 Hematocrit (%) Date Value 05/02/2022 38.6 MCV (fL) Date Value 05/02/2022 97.5 MCH (pg) Date Value 05/02/2022 31.3 MCHC (g/dL) Date Value 05/02/2022 32.1 RDW-CV (%) Date Value 05/02/2022 13.2 Platelet Count (k/uL) Date Value 05/02/2022 416 (H) MPV (fL) Date Value 05/02/2022 8.6 (L) Glucose (mg/dL) Date Value 05/02/2022 97 BUN (mg/dL) Date Value 05/02/2022 33 (H) Creatinine (mg/dL) Date Value 05/02/2022 1.78 (H) Sodium (mmol/L) Date Value 05/02/2022 141 Potassium (mmol/L) Date Value 05/02/2022 4.4 Chloride (mmol/L) Date Value 05/02/2022 104 CO2 (mmol/L) Date Value 05/02/2022 25 Protein, Total (g/dL) Date Value 05/02/2022 7.1 Albumin (g/dL) Date Value 05/02/2022 4.0 Calcium, Total (mg/dL) Date Value 05/02/2022 10.1 Alkaline Phosphatase (U/L) Date Value 05/02/2022 117 Bilirubin, Total (mg/dL) Date Value 05/02/2022 0.3 AST (U/L) Date Value 05/02/2022 12 (L) ALT (U/L) Date Value 05/02/2022 9 DIAGNOSIS: (D72.825) Bandemia (primary encounter diagnosis) Plan: LD LACTATE DEHYDRO, CBC + DIFF, COMP METABOLIC PANEL, C-REACTIVE PROTEIN (CRP), SED RATE WESTERGREN, URIC ACID BLOOD PAST MEDICAL HISTORY Diagnosis Date A-fib (HCC) Breast lump CKD (chronic kidney disease) COPD (chronic obstructive pulmonary disease) (HCC) DM (diabetes mellitus), type 2 (HCC) Edema Gout Hyperkalemia Hyperlipidemia Hyperparathyroidism (HCC) Leukocytosis 2021 Osteopenia Polyp of colon PAST SURGICAL HISTORY Procedure Laterality Date APPENDECTOMY BX OF BREAST; INCISIONAL X2 COLONSCOPY SCREENING HIGH RISK PAST SURGICAL HISTORY OF knee block on right knee TONSILLECTOMY & ADENOIDECTOMY <AGE 13 Social History Tobacco Use Smoking status: Former Packs/day: 1.00 Years: 40.00 Pack years: 40.00 Types: Cigarettes Quit date: 02/07/2022 Years since quittin.2 Smokeless tobacco: Never Vaping Use Vaping Use: Some days Substances: Flavoring Devices: Disposable Substance Use Topics Alcohol use: Not Currently Drug use: Not Currently FAMILY HISTORY Problem Relation Age of Onset Hypertension Mother Heart disease Mother Cancer Father I spent a total of 20 minutes on the date of the service which included preparing to see the patient, [id number] patient care, completing clinical documentation, obtaining and/or reviewing separately obtained history, performing a medically appropriate examination, counseling and educating the pat ient/family/caregiver, ordering medications, tests, or procedures, and independently interpreting results (not separately reported). Dennis Lomas MD, CPE Hematology and Oncology Services Provided at: [facility], [place], [place] CC: Odell Jones MD [address] [place] [address] Olivia Fatima, TAB CUTTER [address] [facility] [id number] Patrick Barba (ortho) documented in this encounterPaulding [facility]12-09-2022 NoteHNO ID: [id number] Author: Dennis Lomas MD Service: ? Author Type: Physician Type: Progress Notes Filed: 03/11/2022 8:25 AM Note Text: NAME: Sd Rehman NO.: [id number] DATE OF SERVICE: February 28, 2022 (Feliciano) Referring Provider: Odell Jones Consultation requested by Dr. Jones for an opinion regarding Ms. Sd Rehman, and my final recommendations will be communicated back to the requesting physician by way of shared medical record or letter via US mail. Additional Clinicians involved in Sd Rehman's care: Olivia Devries DIAGNOSIS: leukocytosis ASSESSMENT: 71 year old with chronic leukocytosis and multiple pro inflammatory causes. This appears to be primarily related to her inflamed right knee implant is causing significant mount of pain. She additionally has recently quit smoking but more likely has chronic inflammation related to this again causing a chronic leukocytosis that is mostly neutrophilic in nature. This process is unlikely to be a primary issue and is most likely secondary. However, it warrants monitoring and I will plan on seeing her back in April with repeat laboratories. I also noted that she has mild macrocytosis which will also plan on evaluating. PLAN: Labs in April on return RTC same day HPI: CASE HISTORY: Reverse Chronological Order 02/17/2022 CBC: 13.6 > 14.0/41.8 < 397, MCV 100.5 11/21/2021 CBC: 13.4 > 12.1/35.9 < 254 absolute neutrophils 10,000, absolute lymphocytes 2000. MCV 102.3 RDW 16.3. 09/27/2021 protein electrophoresis with immunofixation negative for M spike normal kappa lambda ratio. 09/19/2021 CBC 10.3 > 13.4/40.6 < 268, absolute neutrophils 7000, absolute lymphocytes 2300, MCV 101 Initial Visit, February 28, 2022: Sd Rehman presents today Hematology and Oncology evaluation. She is a 71 year old female who Is accompanied by her daughter Jacy for evaluation of leukocytosis. She has a prior history of chronic kidney disease stage IIIb, in addition to lumbar radiculopathy as well as bilateral knee replacements that are in need of revision. She also has a history of atrial fibrillation, COPD, gout, hypertension. Additionally she is a smoker 50 pack years and quit smoking approximately 3 weeks ago. Pertinent laboratories noted above in Case History. Sd has a significant amount of pain in her right knee in particular. She really needs her knee revised and she tells me that the implant is currently loose at the point of insertion causing a significant degree of pain and inflammation. She has had an arthrocentesis done and fluid was positive with white blood cells per her report. Given her history, she has multiple pro inflammatory factors that are likely contributing to her chronic leukocytosis. REVIEW OF SYSTEMS Per HPI and otherwise negative by full review of organ systems. ECOG PERFORMANCE STATUS: 1 PHYSICAL EXAMINATION: Vitals: BP 147/72 Pulse 85 Temp (Src) 97.1 (Temporal) Resp 16 Ht 5' 2 (1.58m) Wt 222 lb (100.7kg) SpO2 96% BMI 40.59 kg/(m2). Body surface area is 2.1 meters squared. Exam limited to gross visualization where appropriate due to COVID-19. Gen.: This is an age-appropriate patient in no acute distress while seated, however, she has significant amount of difficulty standing and ambulating even with an assist device. Both legs are swollen chronically. Head: Appears atraumatic with no visible lesions. Eyes: Pupils equally round and reactive to light, extraocular muscles are intact. Neck: Supple. Mouth: Masked. Respiratory: Appears to be respiring comfortably. Neurologic: Nonfocal to gross visualization. Alert and oriented ?3. Psychiatric: No evidence of inappropriate anxiety or depression. Skin: Visible areas of skin without rash, lesions, wounds or petechiae. ALLERGIES: ALLERGIES No Known Allergies MEDICATIONS: acetaminophen 325 mg cap Take 500 capsules by mouth every 4 hours as needed. albuterol HFA (PROVENTIL HFA, VENTOLIN HFA) 90 mcg/actuation inhaler albuterol sulfate HFA 90 mcg/actuation aerosol inhaler INHALE 2 PUFFS EVERY 4 HOURS NEEDED FOR SHORTNESS OF BREATH allopurinol (ZYLOPRIM) 300 mg tablet allopurinol 300 mg tablet TAKE 1 TABLET BY MOUTH EVERY DAY Cholecalciferol, Vitamin D3, 25 mcg (1,000 unit) cap Take 1,000 Units by mouth. cloNIDine HCl (CATAPRES) 0.1 mg tablet clonidine HCl 0.1 mg tablet colchicine 0.6 mg tablet colchicine 0.6 mg tablet TAKE 1 TABLET BY MOUTH EVERY DAY NEEDED FOR FLARE dilTIAZem (CARDIZEM) 120 mg tablet Jamey (more content not included)...[facility]12-09-2022 Instructions* Patient Instructions* Dennis Lomas MD - 02/28/2022 3:52 PM EST Labs in April on return RTC same day documented in this encounterPaulding [facility]12-09-2022 History of Present illness Narrative* Dennis Lomas MD - 02/28/2022 3:32 PM EST Images from the original note were not included. NAME: Sd Rehman [facility] NO.: [id number] DATE OF SERVICE: February 28, 2022 (Feliciano) Referring Provider: Odell Jones Consultation requested by Dr. Jones for an opinion regarding Ms. Sd Rehman, and my final recommendations will be communicated back to the requesting physician by way of shared medical record or letter via US mail. Additional Clinicians involved in Sd Rehman's care: Olivia Devries DIAGNOSIS: leukocytosis ASSESSMENT: 71 year old with chronic leukocytosis and multiple pro inflammatory causes. This appears to be primarily related to her inflamed right knee implant is causing significant mount of pain. She additionally has recently quit smoking but more likely has chronic inflammation related to this again causing a chronic leukocytosis that is mostly neutrophilic in nature. This process is unlikely to be a primary issue and is most likely secondary. However, it warrants monitoring and I will plan on seeing her back in April with repeat laboratories. I also noted that she has mild macrocytosiswhich will also plan on evaluating. PLAN: Labs in April on return RTC same day HPI: CASE HISTORY: Reverse Chronological Order 02/17/2022 CBC: 13.6 > 14.0/41.8 < 397, MCV 100.5 11/21/2021 CBC: 13.4 > 12.1/35.9 < 254 absolute neutrophils 10,000, absolute lymphocytes 2000. MCV 102.3 RDW 16.3. 09/27/2021 protein electrophoresis with immunofixation negative for M spike normal kappa lambda ratio. 09/19/2021 CBC 10.3 > 13.4/40.6 < 268, absolute neutrophils 7000, absolute lymphocytes 2300, MCV 101 Initial Visit, February 28, 2022: Sd Rehman presents today Hematology and Oncology evaluation. She is a 71 year old female who Is accompanied by her daughter Jacy for evaluation of leukocytosis. She has a prior history of chronic kidney disease stage IIIb, in addition to lumbar radiculopathy as well as bilateral knee replacements that are in need of revision. She also has a history of atrial fibrillation, COPD, gout, hypertension. Additionally she is a smoker 50 pack years and quit smoking approximately 3 weeks ago. Pertinent laboratories noted above in Case History. Sd has a significant amount of pain in her right knee in particular. She really needs her kneerevised and she tells me that the implant is currently loose at the point of insertion causing a significant degree of pain and inflammation. She has had an arthrocentesis done and fluid was positivewith white blood cells per her report. Given her history, she has multiple pro inflammatory factors that are likely contributing to her chronic leukocytosis. REVIEW OF SYSTEMS Per HPI and otherwise negative by full review of organ systems. ECOG PERFORMANCE STATUS: 1 PHYSICAL EXAMINATION: Vitals: BP 147/72 Pulse 85 Temp (Src) 97.1 (Temporal) Resp 16 Ht 5' 2 (1.58m) Wt 222 lb (100.7kg) SpO2 96% BMI 40.59 kg/(m^2). Body surface area is 2.1 meters squared. Exam limited to gross visualization where appropriate due to COVID-19. Gen.: This is an age-appropriate patient in no acute distress while seated, however, she has significant amount of difficulty standing and ambulating even with an assist device. Both legs are swollenchronically. Head: Appears atraumatic with no visible lesions. Eyes: Pupils equally round and reactive to light, extraocular muscles are intact. Neck: Supple. Mouth: Masked. Respiratory: Appears to be respiring comfortably. Neurologic: Nonfocal to gross visualization. Alert and oriented 3. Psychiatric: No evidence of inappropriate anxiety or depression. Skin: Visible areas of skin without rash, lesions, wounds or petechiae. ALLERGIES: ALLERGIES No Known Allergies MEDICATIONS: acetaminophen 325 mg cap Take 500 capsules by mouth every 4 hours as needed. albuterol HFA (PROVENTIL HFA, VENTOLIN HFA) 90 mcg/actuation inhaler albuterol sulfate HFA 90 mcg/actuation aerosol inhaler INHALE 2 PUFFS EVERY 4 HOURS NEEDED FOR SHORTNESS OF BREATH allopurinol (ZYLOPRIM) 300 mg tablet allopurinol 300 mg tablet TAKE 1 TABLET BY MOUTH EVERY DAY Cholecalciferol, Vitamin D3, 25 mcg (1,000 unit) cap Take 1,000 Units by mouth. cloNIDine HCl (CATAPRES) 0.1 mg tablet clonidine HCl 0.1 mg tablet colchicine 0.6 mg tablet colchicine 0.6 mg tablet TAKE 1 TABLET BY MOUTH EVERY DAY NEEDED FOR FLARE dilTIAZem (CARDIZEM) 120 mg tablet Take 120 mg by mouth. DULoxetine (CYMBALTA) 60 mg capsule Take 60 mg by mouth. ewnzdttskgt-tsguyxdko-crrwkvqc (TRELEGY ELLIPTA) 100-62.5-25 mcg inhalation powder 1 puff furosemide (LASIX) 20 mg tablet TAKE 1 TABLET BY MOUTH EVERY DAY FOR 90 DAYS loratadine (CLARITIN) 10 mg tablet Take 10 mg by mouth. rivaroxaban (XARELTO) 20 mg tablet Xarelto 20 mg tablet TAKE 1 TABLET BY MOUTH EVERY DAY varenicline (CHANTIX) 1 mg tablet Take 1 mg by mouth. rosuvastatin (CRESTOR) 20 mg tablet Take 20 mg by mouth once daily. spironolactone (ALDACTONE) 25 mg tablet Take 25 mg by mouth once daily. heparin 10 unit/mL injection Inject 5 mL intravenously. lovastatin 40 mg tablet Take 40 mg by mouth. meloxicam (MOBIC) 15 mg tablet Take 15 mg by mouth. metoprolol succinate ER (TOPROL XL) 100 mg Take 100 mg by mouth. LABORATORY VALUES: No results found for: WBC, RBC, HB, HCT, MCV, MCH, MCHC, RDWCV, PLT, MPV, GLUC, BUN, CREAT, NA, K, CHLOR, CO2, TPROT, ALB, CA, ALKPHOS, TBILI, AST, ALT, CHOL, TG, BETAMM DIAGNOSIS: (D72.825) Bandemia (primary encounter diagnosis) (J44.9) Chronic obstructive pulmonary disease, unspecified COPD type (HCC) (D75.89) Macrocytosis without anemia Plan: CBC + DIFF, COMP METABOLIC PANEL, IRON + TIBC, FERRITIN BLD, VITAMIN B12 BLOOD, FOLATE SERUM, LD LACTATE DEHYDRO, SED RATE WESTERGREN, C-REACTIVE PROTEIN (CRP) PAST MEDICAL HISTORY Diagnosis Date A-fib (HCC) Breast lump CKD (chronic kidney disease) COPD (chronic obstructive pulmonary disease) (HCC) DM (diabetes mellitus), type 2 (HCC) Edema Gout Hyperkalemia Hyperlipidemia Hyperparathyroidism (HCC) Leukocytosis 2021 Osteopenia Polyp of colon PAST SURGICAL HISTORY Procedure Laterality Date APPENDECTOMY BX OF BREAST; INCISIONAL X2 COLONSCOPY SCREENING HIGH RISK PAST SURGICAL HISTORY OF knee block on right knee TONSILLECTOMY & ADENOIDECTOMY <AGE 13 Social History Tobacco Use Smoking status: Former Packs/day: 1.00 Years: 40.00 Pack years: 40.00 Types: Cigarettes Quit date: 02/07/2022 Years since quittin.0 Smokeless tobacco: Never Vaping Use Vaping Use: Some days Substances: Flavoring Devices: Disposable Substance Use Topics Alcohol use: Not Currently Drug use: Not Currently FAMILY HISTORY Problem Relation Age of Onset Hypertension Mother Heart disease Mother Cancer Father I spent a total of 55 minutes on the date of the service which included preparing to see the patient, [id number] patient care, completing clinical documentation, obtaining and/or reviewing separately obtained history, performing a medically appropriate examination, counseling and educating the pat ient/family/caregiver, ordering medications, tests, or procedures, and independently interpreting results (not separately reported). Dennis Lomas MD, CPE Hematology and Oncology Services Provided at: [place], [place] CC: Odell Jones MD [address] [facility] [address] Olivia Fatima, TAB C[employer]TER [address] [facility] [id number] documented in this encounterPaulding [facility]11-30-2022 History of Present illness Narrative* Estrella Mendoza LPN - 02/19/2022 2:30 PM EST Ortho Nurse - Established Patient Intake Room#: 1--Visit today to review lab results - ESR 44 (0-30) and CRP-12.3 ( 0-10) her pain in the right knee is a 8 today. She had a Right tka done [address] Rider. She was told her knee is loose. She has stopped smoking. She has not smoked in 2 weeks. Date: 02/19/2022 2:22 PM Patient: Sd Rehman MR#: [id number] : 1950 Age: 71 y.o. Referring Physician: Self, Self Insurance: Payor: MEDICARE ANTHEM HMO OR PPO / Plan: MEDICARE ANTHEM HMO OR PPO / Product Type: *NoProduct type* / Chief Complaint Patient presents with Right Knee - Pain Visit Vitals Temp 96.7 F (35.9 C) (Temporal) Ht 1.575 m (5' 2 ) Wt 102.3 kg (225 lb 9.6 oz) BMI 41.26 kg/m Pain Presence of Pain: complains of pain/discomfort Pain Location: knee, right Select Pain Scale: DVPRS (Defense and Veterans Pain Rating Scale) (Adult- Cognitively Intact) Pain Location: knee, right Select Pain Scale: DVPRS (Defense and Veterans Pain Rating Scale) (Adult- Cognitively Intact) Recent Labs Lab Results Component Value Date CRP 12.3 (H) 01/02/2022 Lab Results Component Value Date SEDRATE 44 (H) 01/02/2022 No results found for: WBC, WBCCOUNT, WBCFETAL, HGB, HCT, PLATELET, MCV History Past Medical History: Diagnosis Date Arrhythmia Essential hypertension, benign Hyperlipidemia GARETT (obstructive sleep apnea) Renal disease Past Surgical History: Procedure Laterality Date KNEE REPLACEMENT Bilateral 2006 left in 2006 -right 2008---Dr. Crain APPENDECTOMY Family History: Her family history is not on file. Social History: Her reports that she has quit smoking. Her smoking use included cigarettes. She hasnever used smokeless tobacco. She reports current alcohol use. She reports that she does not use drugs. Outpatient Medications Prior to Visit Medication Sig Dispense Refill acetaminophen 650 MG Tab CR Every 8 hours. albuterol 108 (90 Base) MCG/ACT Aero Soln inhaler albuterol sulfate HFA 90 mcg/actuation aerosol inhaler INHALE 2 PUFFS EVERY 4 HOURS NEEDED FOR SHORTNESS OF BREATH allopurinol 300 MG tablet allopurinol 300 mg tablet TAKE 1 TABLET BY MOUTH EVERY DAY cloNIDine 0.1 MG tablet clonidine HCl 0.1 mg tablet colchicine 0.6 MG tablet colchicine 0.6 mg tablet TAKE 1 TABLET BY MOUTH EVERY DAY NEEDED FOR FLARE diltiazem 120 MG Cap SR 24HR diltiazem CD 120 mg capsule,extended release 24 hr TAKE 1 CAPSULE BY MOUTH TWICE A DAY DULoxetine [address] Particles capsule DR Take 60 mg by mouth daily. Soohcwzyrbt-Vaprgoghy-Kagbbs (Trelegy Ellipta) 100-62.5-25 MCG/INH Aerosol Powder, breath activatedinhaler 1 puff meloxicam 15 MG tablet Take 15 mg by mouth daily. Rivaroxaban 20 MG tablet Xarelto 20 mg tablet TAKE 1 TABLET BY MOUTH EVERY DAY Varenicline Tartrate, Starter, (Chantix Starting Month ) 0.5 MG X 11 & 1 MG X 42 Tab TherapyPack Take by mouth. furOSEmide 20 MG tablet TAKE 1 TABLET BY MOUTH EVERY DAY FOR 90 DAYS No facility-administered medications prior to visit. Allergies: She has No Known Allergies. * Navin Clark MD - 02/19/2022 2:30 PM ESTAssociated Order(s): LARGE JOINT/BURSA INJECTION AND/OR ASPIRATION: R knee Post-Procedure Diagnose(s): Pain in prosthetic joint, sequela HPI: Patient is here today to be evaluated for right knee pain. She is a pleasant 71 y.o. female. Primary complaint is pain and discomfort. She has experienced a progressive decline in physical function and quality of life secondary to the discomfort in the right knee. She presents with a highly com plex array of symptoms upon exam today. She is here today as a referral from Dr. Crain. She is status post a right [place] [address] Crain. She started having pain approx nine months ago, reports two past falls. She has had ablation, nerve block and physical therapy for knee pain. She was told there was noted changes on xrays and then referred to my office. ESR of 44 and CRP of 12.3 on 01/02/22 - both elevated. She states she is currently working on weight loss and stopped using nicotineapprox two weeks ago. She states she was evaluated by Dr. Burrows in [place] for vascular workup (I made a referral to Dr. Bates at last visit). Her pain is a 8/10 upon exam today. She is here today to review lab results and re-discuss surgical treatment options. PHYSICAL EXAM: This is an alert, oriented, and age-appropriate female. She is in no distress. Pleasant and cooperative. EXTREMITIES: The upper extremities have no gross deformities. Normal stability.Skin Intact. 5/5 motor. Intact sensation. Normal neurovascular status. Normal coordination. The lower extremities have no gross deformities. Normal stability. Skin Intact. 5/5 motor. Intact sensation. Bilateral lower leg discoloration. Weak pulses. Normal coordination. Range of motion upon exam today is 10-95. Moderate laxity. Painful range of motion. Full motion of hip. No pain. No impingement. No instability. Contralateral leg has normal alignment. Full motion. No pain. No impingement. No instability. IMAGING: Plain film radiographs were reviewed. She has a right total knee arthroplasty in place, tibia component appears to be loose. No changes in imaging. IMPRESSION: 1.) Status post a right TKA by Dr. Crain in 2008. 2.) Nicotine cessation since last visit on 01/02/22. 2.) Vascular insuffiencey - recently evaluated by Dr. Burrows in [place]. 3.) Obesity, increased BMI - weight goal given of 200lbs. 4.) Suspected aseptic vrs septic loosening, right TKA. 5.) History of falls. PLAN: We have discussed in great detail the nature of the diagnosis, the natural history and expected progression which is likely worsening pain, worsening instability with risks of falls, and potentially additional joint and or bone wear. We have discussed the options for treatment including both conservative and operative treatments. We have discussed the risks, benefits, and alternatives to each treatment. Sd understands that the potential benefits are reduced pain, improved stability and improved function. Sd understands the complex nature of revision surgery and that the elevated major life or limb threatening risks that include, but are not limited to: bleeding, infection, ne urovascular injury including foot drop or paralysis, dislocation, component failure, implant loosening, ligament or tendon disruption, fracture, stiffness, chronic pain, chronic disability, need for further surgery, blood clots in the extremities or lungs, stroke, heart attack, loss of limb, and ultimately loss of life. In particular the patient understands the increased and major risks of revision surgery such as jennifer-prosthetic fracture, infection, component failure or loosening, nerve injury, blood vessel injury, loss of leg or life. She understands revision surgery may take longer and mayrequire more extensive exposure and potentially osteotomies and that this may lead to additional mor bidity or mortality. Despite these risks, the patient would like to proceed with surgical planning for right revision total knee replacement. Today, we will initiate the pre-surgical process including nasal MRSA screening, scheduling an appointment for [facility] and the potential surgical date, and reviewing and signing the consent forms. A short script for Ultram was also given today to aid in preoperative pain management. ASPIRATION: After explanation of the risks, benefits and alternatives, the lateral aspect of the knee was prepped in a sterile standard fashion. Local Lidocaine was used to anesthetize the region. The area was re-prepped and an aspiration was performed with an 18 gauge needle. 1ml of yellow synovial fluid was obtained and will be sent for additional testing including cell count with differential and culture. The region was cleaned and a dressing applied. The patient tolerated the aspiration well. I will consider repeat aspiration / tagged WBC scan pending preliminary aspiration lab results. She fully understands. Otherwise, I will see her morning of surgery. LARGE JOINT/BURSA INJECTION AND/OR ASPIRATION: R knee Date/Time: 02/19/2022 2:30 PM Supporting Documentation Indications: pain Procedure Details: Location: knee - R knee Local Anesthetic: lidocaine 1% Needle size: 18 G Medication Verification: I have personally verified and performed the final check of the medication(s) used in this procedure prior to administration. The following items were included during the verification process for medication(s) administered: drug name, strength, volume, expiration, physical integrity and appearance of the medication(s). Patient tolerance: patient tolerated the procedure well with no immediate complications The patient was prepped with Chloraprep. I have reviewed the findings of my clinical staff below and agree with their assessment. Vitals: 02/19/22 1417 Temp: 96.7 degrees F (35.9 degrees C) TempSrc: Temporal Weight: 102.3 kg (225 lb 9.6 oz) Height: 1.575 m (5' 2 ) Pain Presence of Pain: complains of pain/discomfort Pain Location: knee, right Select Pain Scale: DVPRS (Defense and Veterans Pain Rating Scale) (Adult- Cognitively Intact) Pain Location: knee, right Select Pain Scale: DVPRS (Defense and Veterans Pain Rating Scale) (Adult- Cognitively Intact) Recent Labs Lab Results Component Value Date CRP 12.3 (H) 01/02/2022 Lab Results Component Value Date SEDRATE 44 (H) 01/02/2022 No results found for: WBC, WBCCOUNT, WBCFETAL, HGB, HCT, PLATELET, MCV Past Medical History: Diagnosis Date Arrhythmia Essential hypertension, benign Hyperlipidemia GARETT (obstructive sleep apnea) Renal disease Past Surgical History: Procedure Laterality Date KNEE REPLACEMENT Bilateral 2006 left in 2006 -right 2008---Dr. Crain APPENDECTOMY No family history on file. Social History Socioeconomic History Marital status: Tobacco Use Smoking status: Former Types: Cigarettes Smokeless tobacco: Never Vaping Use Vaping Use: Never used Substance and Sexual Activity Alcohol use: Yes Comment: occasional Drug use: Never Current Outpatient Medications: acetaminophen 650 MG Tab CR, Every 8 hours., Disp: , Rfl: albuterol 108 (90 Base) MCG/ACT Aero Soln inhaler, albuterol sulfate HFA 90 mcg/actuation aerosol inhaler INHALE 2 PUFFS EVERY 4 HOURS NEEDED FOR SHORTNESS OF BREATH, Disp: , Rfl: allopurinol 300 MG tablet, allopurinol 300 mg tablet TAKE 1 TABLET BY MOUTH EVERY DAY, Disp: , Rfl: cloNIDine 0.1 MG tablet, clonidine HCl 0.1 mg tablet, Disp: , Rfl: colchicine 0.6 MG tablet, colchicine 0.6 mg tablet TAKE 1 TABLET BY MOUTH EVERY DAY NEEDED FOR FLARE, Disp: , Rfl: diltiazem 120 MG Cap SR 24HR, diltiazem CD 120 mg capsule,extended release 24 hr TAKE 1 CAPSULE BY MOUTH TWICE A DAY, Disp: , Rfl: DULoxetine [address] Particles capsule DR, Take 60 mg by mouth daily., Disp: , Rfl: Qieqpnzccyl-Csiukehcn-Hmeqfx (Trelegy Ellipta) 100-62.5-25 MCG/INH Aerosol Powder, breath activatedinhaler, 1 puff, Disp: , Rfl: meloxicam 15 MG tablet, Take 15 mg by mouth daily., Disp: , Rfl: Rivaroxaban 20 MG tablet, Xarelto 20 mg tablet TAKE 1 TABLET BY MOUTH EVERY DAY, Disp: , Rfl: Varenicline Tartrate, Starter, (Chantix Starting Month ) 0.5 MG X 11 & 1 MG X 42 Tab TherapyPack, Take by mouth., Disp: , Rfl: furOSEmide 20 MG tablet, TAKE 1 TABLET BY MOUTH EVERY DAY FOR 90 DAYS, Disp: , Rfl: No Known Allergies [facility] History of Present illness Narrative* Estrella KEVIN Mendoza - 01/02/2022 2:10 PM EDT Ortho Nurse - Patient Intake Room#: 2--Visit today to evaluate Right knee pain.She had a Right TKA done in [address] Crain.She started to have knee pain about 9 months ago. She had no fall or injury . She has had ablation,nerve block and PT. She was seen and told she had changes on her x-ray of the knee she had a ESR(28)and CRP ( 7.2) on 11-19-21. Both in normal limits.Her pain today is 8. Date: 01/02/2022 2:37 PM Patient: Sd Rehman MR#: [id number] : 1950 Age: 71 y.o. Referring Physician: Price Jaimes PA Insurance: Payor: MEDICARE ANTHEM HMO OR PPO / Plan: MEDICARE ANTHEM HMO OR PPO / Product Type: *NoProduct type* / Chief Complaint Patient presents with Right Knee - Pain, New Patient Visit Vitals Temp 96.6 F (35.9 C) (Temporal) Ht 1.575 m (5' 2 ) Wt 104.3 kg (230 lb) BMI 42.07 kg/m Pain Presence of Pain: complains of pain/discomfort Pain Location: knee, right Select Pain Scale: DVPRS (Defense and Veterans Pain Rating Scale) (Adult- Cognitively Intact) Pain Location: knee, right Select Pain Scale: DVPRS (Defense and Veterans Pain Rating Scale) (Adult- Cognitively Intact) Recent Labs No results found for: CRP No results found for: SEDRATE No results found for: WBC, WBCCOUNT, WBCFETAL, HGB, HCT, PLATELET, MCV History Past Medical History: Diagnosis Date Arrhythmia Essential hypertension, benign Hyperlipidemia GARETT (obstructive sleep apnea) Renal disease Past Surgical History: Procedure Laterality Date KNEE REPLACEMENT Bilateral 2006 left in 2006 -right 2008---Dr. Crain APPENDECTOMY Family History: Her family history is not on file. Social History: Her reports that she has been smoking cigarettes. She has never used smokeless tobacco. She reports current alcohol use. She reports that she does not use drugs. Additional Social History Y N Notes Do you live alone? [x] [] Who lives with you: Do you have children? [x] [] How many: 3 Do you currently work? [] [x] What type of work do you do: Do you have stairs in the home? [x] [] How many do you have to climb to enter your home: 3 What services do you currently receive at home? [] [x] Name: Do you have transportation to go to outpatient therapy if needed? [x] [] What Equipment do you have at home? [x] [] [x]Walker, []Crutches, []Commode Chair, [x]Shower []Chair, [x]cane, []bracing Are you followed by a flame annealing machine setter? [x] [] Name: [facility] cardiology Are you followed by pain management? [x] [] Name: Are you followed by any other specialists? [x] [] Name: Nephrology--Dr. Jones--[facility] Medications Prior to Visit Medication Sig Dispense Refill acetaminophen 650 MG Tab CR Every 8 hours. albuterol 108 (90 Base) MCG/ACT Aero Soln inhaler albuterol sulfate HFA 90 mcg/actuation aerosol inhaler INHALE 2 PUFFS EVERY 4 HOURS NEEDED FOR SHORTNESS OF BREATH allopurinol 300 MG tablet allopurinol 300 mg tablet TAKE 1 TABLET BY MOUTH EVERY DAY cloNIDine 0.1 MG tablet clonidine HCl 0.1 mg tablet colchicine 0.6 MG tablet colchicine 0.6 mg tablet TAKE 1 TABLET BY MOUTH EVERY DAY NEEDED FOR FLARE diltiazem 120 MG Cap SR 24HR diltiazem CD 120 mg capsule,extended release 24 hr TAKE 1 CAPSULE BY MOUTH TWICE A DAY DULoxetine [address] Particles capsule DR Take 60 mg by mouth daily. Eynntqjzbvo-Lvvcyfhhj-Wqzqun (Trelegy Ellipta) 100-62.5-25 MCG/INH Aerosol Powder, breath activatedinhaler 1 puff furOSEmide 20 MG tablet TAKE 1 TABLET BY MOUTH EVERY DAY FOR 90 DAYS meloxicam 15 MG tablet Take 15 mg by mouth daily. Rivaroxaban 20 MG tablet Xarelto 20 mg tablet TAKE 1 TABLET BY MOUTH EVERY DAY No facility-administered medications prior to visit. Allergies: She has No Known Allergies. Y N Are you allergic to any metals? [] [x] If yes, what metals: Review of Systems System Y N Symptoms Constitutional [] [x] Weight Loss [] [x] Weight Gain [] [x] Chronic Fever [] [x] Insomnia Eyes [] [x] Resent Vision Change [] [x] Cataracts [] [x] Glaucoma [] [x] Any Hx of Metal Fragments in the Eye ENT [] [x] Loss of hearing [] [x] Hearing Aids [] [x] Seasonal Allergies [] [x] Dental Issues Cardiovascular [] [x] Chest Pain [] [x] Angina [] [x] Stent [x] [] Hypertension [] [x] Heart Murmur [] [x] Irregular Pulse [] [x] Pacemaker [] [x] Palpitations [] [x] High cholesteral Respiratory [] [x] Wheezing [] [x] Shortness of Breath [] [x] Pneumonia [] [x] Bronchitis [x] [] Sleep Apnea [x] [] COPD [] [x] Date/ LOC of last CXR: Gastrointestinal [] [x] Heartburn [] [x] Indigestion [] [x] Constipation [] [x] Ulcer [] [x] GI Stomach Bleed [] [x] Diarrhea [] [x] Colon Cancer [] [x] Acid Reflux [] [x] Blood in Stools Musculoskeletal [x] [] Arthritis [] [x] Muscle Weakness [x] [] Joint Pain [] [x] Back Pain [] [x] Fibromyalgia [] [x] Bone Infection [] [x] Swelling - Multiple Joints [] [x] Reflex Sympathetic Dystrophy Skin [] [x] Chronic Rash [] [x] Ulcers [] [x] Eczema [] [x] Psoriasis [] [x] Skin Cancer [] [x] Melanoma Neurologic [] [x] Numbness [] [x] Weakness or loss of sensation in arms or legs [] [x] Leg Pain / Sciatica [] [x] Headaches [] [x] Loss of bowel or bladder control Psychiatric [] [x] Anxiety [] [x] Claustrophobia [] [x] Other Psychiatric Problems Hematologic [] [x] Easy Bruising [] [x] Easy Bleeding [] [x] Blood Transfusion Date: Endocrine [] [x] Hypothyroid [] [x] Hyperthyroid [] [x] Hot Flashes [] [x] Hormone Replacement [] [x] Prednisone Use Does pt have dentures? no * Navin Clark MD - 01/02/2022 2:10 PM EDT HPI: Patient is here today to be evaluated for right knee pain. She is a pleasant 71 y.o. female. Primary complaint is pain and discomfort. She has experienced a progressive decline in physical function and quality of life secondary to the discomfort in the right knee. She is here today as a referral from Dr. Crain. She is status post a right [place] [address] Crain. She started having pain approx nine months ago, reports two past falls. She has had ablation, nerve block and physical therapy for knee pain. She was told there was noted changes on xrays and then referred to my office. ESR of 28 and CRP of 7.2, on 11/19/21 - both WNL. Her pain is a 8/10 upon exam today. She is here todayfor evaluation and to determine treatment options. PHYSICAL EXAM: This is an alert, oriented, and age-appropriate female. She is in no distress. Pleasant and cooperative. EXTREMITIES: The lower extremities have no gross deformities. Normal stability.Skin Intact. 5/5 motor. Bilateral lower leg discoloration. Weak pulses. Normal coordination. Range of motion upon exam today is 10-95. Crepitus throughout the arc of motion. Full motion of hip. No pain. No impingement. No instability. Contralateral leg has normal alignment. Full motion. No pain. Noimpingement. No instability. IMAGING: Plain film radiographs were reviewed. She has a right total knee arthroplasty in place, tibia component appears to be loose. IMPRESSION: 1.) Status post a right TKA by Dr. Crain in 2008. 2.) Nicotine dependence. 2.) Vascular insuffiencey 3.) Obesity, increased BMI - weight goal given of 200lbs. 4.) Prosthetic loosening,right TKA. 5.) History of falls. PLAN: I reviewed my findings with Sd. We discussed the diagnosis, treatment options, radiographs and physical exam findings together. We discussed prosthetic loosening in depth together along with revision surgery benefits/risks and pros/cons. Given her nicotine use, increased BMI and vascular insuffiencey, an elective surgery would be to risky at this time given potential loss of limb. Weight loss goal of 200lbs was given - encouraged her to start weight loss journal to optimize herself as a future surgical candidate. I will make a referral to Dr. Bates for vascular workup. We also discussed her nicotine dependence. I have explained to the patient the risks of nicotine use perioperatively and the reasoning behind my recommendation to stop smoking at least 4 weeks in advance. She is in agreement with my recommendation in order to receive the best possible outcomes and lowest risk for complications. In the meantime, a hinged knee brace will be fitted today. We will re-discuss revision arthroplasty pending nicotine cessation, weight loss and vascular clearance. At the very least,I recommend we see back in 6 weeks for repeat radiographic to monitor for any internal changes. Shefully understands the plan of care moving forward. All questions were answered. She has no further questions. I have reviewed the findings of my clinical staff below and agree with their assessment. Vitals: 01/02/22 1425 Temp: 96.6 degrees F (35.9 degrees C) TempSrc: Temporal Weight: 104.3 kg (230 lb) Height: 1.575 m (5' 2 ) Pain Presence of Pain: complains of pain/discomfort Pain Location: knee, right Select Pain Scale: DVPRS (Defense and Veterans Pain Rating Scale) (Adult- Cognitively Intact) Pain Location: knee, right Select Pain Scale: DVPRS (Defense and Veterans Pain Rating Scale) (Adult- Cognitively Intact) Recent Labs No results found for: CRP No results found for: SEDRATE No results found for: WBC, WBCCOUNT, WBCFETAL, HGB, HCT, PLATELET, MCV Past Medical History: Diagnosis Date Arrhythmia Essential hypertension, benign Hyperlipidemia GARETT (obstructive sleep apnea) Renal disease Past Surgical History: Procedure Laterality Date KNEE REPLACEMENT Bilateral 2006 left in 2006 -right 2008---Dr. Stepanic APPENDECTOMY No family history on file. Social History Socioeconomic History Marital status: Tobacco Use Smoking status: Every Day Types: Cigarettes Smokeless tobacco: Never Vaping Use Vaping Use: Never used Substance and Sexual Activity Alcohol use: Yes Comment: occasional Drug use: Never Current Outpatient Medications: acetaminophen 650 MG Tab CR, Every 8 hours., Disp: , Rfl: albuterol 108 (90 Base) MCG/ACT Aero Soln inhaler, albuterol sulfate HFA 90 mcg/actuation aerosol inhaler INHALE 2 PUFFS EVERY 4 HOURS NEEDED FOR SHORTNESS OF BREATH, Disp: , Rfl: allopurinol 300 MG tablet, allopurinol 300 mg tablet TAKE 1 TABLET BY MOUTH EVERY DAY, Disp: , Rfl: cloNIDine 0.1 MG tablet, clonidine HCl 0.1 mg tablet, Disp: , Rfl: colchicine 0.6 MG tablet, colchicine 0.6 mg tablet TAKE 1 TABLET BY MOUTH EVERY DAY NEEDED FOR FLARE, Disp: , Rfl: diltiazem 120 MG Cap SR 24HR, diltiazem CD 120 mg capsule,extended release 24 hr TAKE 1 CAPSULE BY MOUTH TWICE A DAY, Disp: , Rfl: DULoxetine [address] Particles capsule DR, Take 60 mg by mouth daily., Disp: , Rfl: Eltayztkaxo-Hudpmwrmk-Cpgigi (Trelegy Ellipta) 100-62.5-25 MCG/INH Aerosol Powder, breath activatedinhaler, 1 puff, Disp: , Rfl: furOSEmide 20 MG tablet, TAKE 1 TABLET BY MOUTH EVERY DAY FOR 90 DAYS, Disp: , Rfl: meloxicam 15 MG tablet, Take 15 mg by mouth daily., Disp: , Rfl: Rivaroxaban 20 MG tablet, Xarelto 20 mg tablet TAKE 1 TABLET BY MOUTH EVERY DAY, Disp: , Rfl: No Known Allergies documented in this [facility]09-24-2022 NoteEducation Materials Cardiovascular Hypertension, Adult Hypertension is another name for high blood pressure. High blood pressure forces your heart to workharder to pump blood. This can cause problems over time. There are two numbers in a blood pressure reading. There is a top number (systolic) over a bottom number (diastolic). It is best to have a blood pressure that is below 120/80. Healthy choices can help lower your blood pressure, or you may need medicine to help lower it. What are the causes? The cause of this condition is not known. Some conditions may be related to high blood pressure. What increases the risk? ? Smoking. ? Having type 2 diabetes mellitus, high cholesterol, or both. ? Not getting enough exercise or physical activity. ? Being overweight. ? Having too much fat, sugar, calories, or salt (sodium) in your diet. ? Drinking too much alcohol. ? Having long-term (chronic) kidney disease. ? Having a family history of high blood pressure. ? Age. Risk increases with age. ? Race. You may be at higher risk if you are . ? Gender. Men are at higher risk than women before age 45. After age 65, women are at higher risk than men. ? Having obstructive sleep apnea. ? Stress. What are the signs or symptoms? ? High blood pressure may not cause symptoms. Very high blood pressure (hypertensive crisis) may cause: ? Headache. ? Feelings of worry or nervousness (anxiety). ? Shortness of breath. ? Nosebleed. ? A feeling of being sick to your stomach (nausea). ? Throwing up (vomiting). ? Changes in how you see. ? Very bad chest pain. ? Seizures. How is this treated? ? This condition is treated by making healthy lifestyle changes, such as: ? Eating healthy foods. ? Exercising more. ? Drinking less alcohol. ? Your health care provider may prescribe medicine if lifestyle changes are not enough to get your blood pressure under control, and if: ? Your top number is above 130. ? Your bottom number is above 80. ? Your personal target blood pressure may vary. Follow these instructions at home: Eating and drinking ? If told, follow the DASH eating plan. To follow this plan: ? Fill one half of your plate at each meal with fruits and vegetables. ? Fill one fourth of your plate at each meal with whole grains. Whole grains include whole-wheat pasta, brown rice, and whole-grain bread. ? Eat or drink low-fat dairy products, such as skim milk or low-fat yogurt. ? Fill one fourth of your plate at each meal with low-fat (lean) proteins. Low- fat proteins includefish, chicken without skin, eggs, beans, and tofu. ? Avoid fatty meat, cured and processed meat, or chicken with skin. ? Avoid pre-made or processed food. ? Eat less than 1,500 mg of salt each day. ? Do not drink alcohol if: ? Your doctor tells you not to drink. ? You are , may be , or are planning to become . ? If you drink alcohol: ? Limit how much you use to: ? 0?1 drink a day for women. ? 0?2 drinks a day for men. ? Be aware of how much alcohol is in your drink. In the [place] one drink equals one 12 oz bottle of beer (355 mL), one 5 oz glass of wine (148 mL), or one 1? oz glass of hard liquor (44 mL). Lifestyle ? Work with your doctor to stay at a healthy weight or to lose weight. Ask your doctor what the best weight is for you. ? Get at least 30 minutes of exercise most days of the week. This may include walking, swimming, orbiking. ? Get at least 30 minutes of exercise that strengthens your muscles (resistance exercise) at least 3 days a week. This may include lifting weights or doing Pilates. ? Do not use any products that contain nicotine or tobacco, such as cigarettes, e-cigarettes, and chewing tobacco. If you need help quitting, ask your doctor. ? Check your blood pressure at home as told by your doctor. ? Keep all follow-up visits as told by your doctor. This is important. Medicines ? Take ynzz-yga-jeszzgm and prescription medicines only as told by your doctor. Follow directions carefully. ? Do not skip doses of blood pressure medicine. The medicine does not work as well if you skip doses. Skipping doses also puts you at risk for problems. ? Ask your doctor about side effects or reactions to medicines that you should watch for. Contact a doctor if you: ? Think you are having a reaction to the medicine you are taking. ? Have headaches that keep coming back (recurring). ? Feel dizzy. ? Have swelling in your ankles. ? Have trouble with your vision. Get help right away if you: ? Get a very bad headache. ? Start to feel mixed up (confused). ? Feel weak or numb. ? Feel faint. ? Have very bad pain in your: ? Chest. ? Belly (abdomen). ? Throw up more than once. ? Have trouble breathing. Summary ? Hypertension is another name for high blood pressure. ? High blood pressure forces your h (more content not included)...[facility] [id number] NoteOPERATIVE NOTE OPERATION DATE: 12/03/2021 PRIMARY CARE PHYSICIAN: Patrick Odom D.O. SURGEON: Zina Crawford M.D. PREOPERATIVE DIAGNOSIS: Left internal nasal lesion. POSTOPERATIVE DIAGNOSIS: Left internal nasal lesion. PROCEDURE: Removal of left internal nasal lesion. ANESTHESIA: Lidocaine 1% with 1:100,000 epinephrine. COMPLICATIONS: None. FINDINGS: 3 mm pedunculated verrucous lesion of the left nostril. INDICATIONS: This 71-year-old woman presented with the above lesion for excision. PROCEDURE: Patient identified in the holding area and taken back to the OR where she was placed in the supine position. Lidocaine 1% with 1:100,000 epinephrine was infiltrated around the base of the patient's lesion. After waiting adequate time for hemostasis and anesthesia, the left nose was prepped with Betadine and then the nostril was expanded with a nasal speculum, and an 11 blade knife was used to make an incision around the base of the lesion, which was then removed. Hemostasis was achieved with pressure and antibiotic ointment was placed in the nose. Patient was then awakened and taken to the recovery room in good condition.[facility] [id number] Evaluation note * Encounter Date Diagnosis Assessment Notes Treatment Notes Treatment Clinical Notes Oct, Greater trochanteric bursitis of right hip (ICD-10 - M70.61) Oct, Spondylolisthesis, lumbar region (ICD-10 - M43.16) I have independently reviewed the MRI of the lumbar spine showing L5-S1 and L4-5 spondylolisthesis and L3-4 stenosis. Clinically the patient has no neurogenic claudication, she does have palpable trochanteric bursitis on the right that was injected once with pain management and got a lot better. iI seems to have come back. My recommendation is to continue with pain management with another injection. The family fully understands and agrees. I do not think surgical intervention is needed at this time. 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 Continue spironolactone and Cardizem. 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 Her baseline serum creatinine of 1.3- 1.5 mg/dL. Renal ultrasound shows bilateral renal cyst and findings consistent with medical renal disease. She has proteinuria with no evidence of hematuria on UA. I have advised her to avoid NSAIDs. I discussed with her the importance of good HTN control to slow down the progression of disease. Sep, Secondary hyperparathyroidism (ICD-10 - N25.81) MBD parameters including PTH, Vit D, Phosphorus and Calcium are within the goal. Continue low phosphorus diet. Sep, Gout (ICD-10 - M10.9) Her ur ic acid within the goal. Continue current dose of the allopurinol. Sep, Proteinuria (ICD-10 - R80.9) She has a proteinuria likely due to hypertensive nephrosclerosis. Her proteinuria has increased likely due to the discontinuation of losartan. Other differential diagnosis paraproteinemia. I have ordered a work-up for it. 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 Continue current antihypertensive medication. 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 Her baseline serum creatinine of 1.3- 1.5 mg/dL. Renal ultrasound shows bilateral renal cyst and findings consistent with medical renal disease. She has mild proteinuria with no evidence of hematuria on UA. I have advised her to avoid NSAIDs. I discussed with her the importance of good HTN control to slow down the progression of disease. Feb, Secondary hyperparathyroidism (ICD-10 - N25.81) MBD parameters including PTH, Vit D, Phosphorus and Calcium are within the goal. Continue low phosphorus diet. Feb, Gout (ICD-10 - M10.9) Her uric acid within the goal. Continue current dose of the allopurinol. Sarta Other [id number] Evaluation note* Encounter Date Diagnosis Assessment Notes Treatment Notes Treatment Clinical Notes Nov, Contact with and (suspected) exposure to other viral communicable diseases (ICD-10 - Z20.828) Advised patient that COVID antigen rapid test today in office was negative. Due to close contact with COVID+ person, I am highly suspicious and offered PCR test. After discussion with patient PCR order placed and patient was provided with copy of order and instructions on how to schedule. Advised that I will call them with results within 2-5 days. Discussed supportive care of viral infections, including, OTC cold medications as directed, Tylenol/Motrin as directed on packaging for fever/aches, increase fluids and rest, cool mist humidification, throat lozenges. Advised patient that capmist contains a cough suppressant, decongestant, and antihistamine and should avoid additional OTC unless directed. Patient to follow-up with UC or PCP for persistent or worsening sx despite tx. Immediate eval by ER for warning s/sx as discussed, including but not limited to, SOB, difficulty breathing, chest pain, palpitations, fever >103 or fevers that are not reduced with antipyretic, significant dehydration (unable to keep fluids or food down, persistent vomiting/diarrhea) , abdominal pain, lethargy, severe headache. Patient was provided with education hand sheet. Patient verbalizes understanding and is agreeable to treatment plan Nov, Other Additional time spent conducting pre-visit phone call, screening for symptoms, instructions on social distancing, application and removal of PPE, and cleaning of examination room, equipment and supplies was preformed. Patient education given for testing methodology and results. Patient care instructions given in writting by [facility] Care At Home document Sarta Other Evaluation noteNo InformationNort Aethon Other Evaluation note* Diagnosis Pain in prosthetic joint, sequela- [facility] Pain in prosthetic joint, sequela- [facility] Diagnosis Bandemia- Primary Chronic obstructive pulmonary disease, unspecified COPD type (HCC) Macrocytosis without anemia Other specified diseases of blood and blood-forming organs documented in this encounter [facility] note* Diagnosis Bandemia- Primary documented in this encounter [facility] note* Diagnosis Acute postoperative pain of right knee- Primary Preop testing Preoperative examination, unspecified Other mechanical complication of internal right knee prosthesis, initial encounter COPD mixed type Chronic airway obstruction, not elsewhere classified Paroxysmal atrial fibrillation Atrial fibrillation Hyponatremia Hyposmolality and/or hyponatremia Stage 3a chronic kidney disease snf (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 non-steroidal anti-inflammatories (nsaid) Idiopathic chronic gout of multiple sites without tophus Chronic gouty arthropathy without mention of tophus (tophi) Mixed hyperlipidemia Benign hypertension Essential hypertension, benign Benign hypertension Essential hypertension, benign Mixed hyperlipidemia Idiopathic chronic gout of multiple sites without tophus Chronic gouty arthropathy without mention of tophus (tophi) intermediate designer (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 non-steroidal anti-inflammatories (nsaid) Stage 3a chronic kidney disease Hyponatremia Hyposmolality and/or hyponatremia Paroxysmal atrial fibrillation Atrial fibrillation COPD mixed type Chronic airway obstruction, not elsewhere classified Other mechanical complication of internal right knee prosthesis, initial encounter [facility] Diagnosis Hx of total knee arthroplasty, right- Primary [facility]* Diagnosis Hx of total knee arthroplasty, right- Primary [facility]* Diagnosis Hx of total knee arthroplasty, right- Primary [facility]* Diagnosis Hx of total knee arthroplasty, right- Primary [facility]* Diagnosis Onset Date Resolution Status CKD (chronic kidney disease) stage 3, GFR 30-59 ml/min acute Gout acute [id number] acute Iron deficiency acute Proteinuria acute Secondary hyperparathyroidism acute [facility] Work Phone: History general Narrative - Reported* Type Description Date Medical History CHRONIC KIDNEY DISEASE STAGE 3 Medical History ATRIAL FIBRILLATION Medical History CHRONIC OBSTRUCTIVE LUNG DISEASE Medical History HYPERKALEMIA Medical History EDEMA Medical History OSTEOPENIA Medical History HYPERTENSIVE DISORDER Medical History HYPERLIPIDEMIA Medical History BREAST LUMP Medical History POLYP OF COLON Medical History GOUT Surgical History APPENDECTOMY Surgical History TONSIL AND ADENOIDS Surgical History KNEE SURGERY bilateral Surgical History COLONOSCOPY Surgical History BREAST BIOPSY X2 Hospitalization History SEE ABOVE Hospitalization History CELLULITIS X2 2017 Hospitalization History osteomyelitis Sarta Other [facility] general Narrative - Reported* Type Description Date Medical History CHRONIC KIDNEY DISEASE STAGE 3 Medical History ATRIAL FIBRILLATION Medical History CHRONIC OBSTRUCTIVE LUNG DISEASE Medical History HYPERKALEMIA Medical History EDEMA Medical History OSTEOPENIA Medical History HYPERTENSIVE DISORDER Medical History HYPERLIPIDEMIA Medical History BREAST LUMP Medical History POLYP OF COLON Medical History GOUT Surgical History APPENDECTOMY Surgical History TONSIL AND ADENOIDS Surgical History KNEE SURGERY bilateral Surgical History COLONOSCOPY Surgical History BREAST BIOPSY X2 Surgical History KNEE BLOCK ON RIGHT KNEE Hospitalization History SEE ABOVE Hospitalization History CELLULITIS X2 2017 Hospitalization History osteomyelitis Sarta Other Hisry[facility] general Narrative - Reported* Type Description Date Medical History CHRONIC KIDNEY DISEASE STAGE 3 Medical History ATRIAL FIBRILLATION Medical History CHRONIC OBSTRUCTIVE LUNG DISEASE Medical History HYPERKALEMIA Medical History EDEMA Medical History OSTEOPENIA Medical History HYPERTENSIVE DISORDER Medical History HYPERLIPIDEMIA Medical History BREAST LUMP Medical History POLYP OF COLON Medical History GOUT Surgical History APPENDECTOMY Surgical History TONSIL AND ADENOIDS Surgical History KNEE SURGERY bilateral Surgical History COLONOSCOPY Surgical History BREAST BIOPSY X2 Surgical History KNEE BLOCK ON RIGHT KNEE Surgical History right knee revision 05/2022 Hospitalization History SEE ABOVE Hospitalization History CELLULITIS X2 2017 Hospitalization History osteomyelitis Sarta Other InstructionsNot on filedocumented in this encounter [facility] Consultation (Routine) - Closed Specialty Diagnoses / Procedures Referred By Korin maldonado Referred To Contact Cardiovascular Medicine Diagnoses Pain in prosthetic joint, Navin Bruno MD [address] [place] [phone] Josef Bates MD [address] [place] [phone] Referral ID Status Reason Start Date Expiration Date Visits Re quested Visits Authorized [id number] Closed 01/02/2022 01/27/2023 1 1 Scheduling Instructions . * Diagnostic X-Ray (Routine) - Pending Review Specialty Diagnoses / Procedures Referred By Contac t Referred To Contact Diagnoses Pain in prosthetic joint, sequela Procedures XR BONE LENGTH STUDY Navin Clark MD [address] [place] [address] Referral ID Status Reason Start Date Expiration Date V isits Requested Visits Authorized [id number] Pending Review 12/27/2021 01/21/2023 1 1 * Diagnostic X-Ray (Routine) - Pending Review Specialty Diagnoses / Procedures Referred By Korin t Referred To Contact Diagnoses Pain in prosthetic joint, sequela Procedures XR KNEE RIGHT 3 VIEWS Navin Clark MD [address] [place] [phone] Referral ID Status Reason Start Date Expiration Date V isits Requested Visits Authorized [id number] Pending Review 12/27/2021 01/21/2023 1 1 [facility] for visit Narrative* Auth/Cert Specialty Diagnoses / Procedures Referred By Korin maldonado Referred To Contact Diagnoses Other mechanical complication of internal right knee prosthesis, initial encounter Other mechanical complication of internal right knee prosthesis, initial encounter [T84.092A] Procedures MO REVISE KNEE JOINT REPLACE,ALL PARTS REVISION ARTHROPLASTY KNEE Navin Clark MD [address] [place] [phone] Referral ID Status Reason Start Date Expiration Date Visits Re quested Visits Authorized [id number] 03/12/2022 1 1 [facility] Summary Purpose Family History No Family History Records Found Relationship Condition Age at Onset Recorded Date/T alexei father Unknown Malignant neoplasm Unknown Not Specified Unknown Heart disease Unknown Hypertension Unknown sister Hypertension Unknown History of stroke Unknown Advance Directives No Advanced Directives Records FoundDocuments on File Type Date Recorded Patient Digital Content Marketing Manager Expl anation Advance Directives/Living Will 06/09/2022 10:21 AM Latest Code Status on File Code Status Date Activated Date Inactivated Comments Full Code 06/09/2022 4:37 PM Documents on File Type Date Recorded Patient Digital Content Marketing Manager Expl anation Advance Directives/Living Will 06/09/2022 10:21 AM LIVING WILL Documents on File Type Date Recorded Patient Digital Content Marketing Manager Expl anation Advance Directives/Living Will 06/09/2022 10:21 AM LIVING WILL Latest Code Status on File Code Status Date Activated Date Inactivated Comments Full Code 06/09/2022 4:37 PM Advance Directive Response Recorded Date/ Time Advance Directives Yes August 19 10:25am Reason for Referral Specialty Diagnoses / Procedures Referred By Contac t Referred To Contact Diagnoses Hx of total knee arthroplasty, right Procedures XR KNEE RIGHT 2 VIEWS XR KNEE RIGHT 3 VIEWS Jerilyn Baig [address] [place] [phone] Referral ID Status Reason Start Date Expiration Date V isits Requested Visits Authorized [id number] New Request 06/13/2022 07/08/2023 1 1 Specialty Diagnoses / Procedures Referred By Contac t Referred To Contact Physical Therapy Diagnoses Acute postoperative pain of right knee Jerilyn Baig [address] [place] [phone] Referral ID Status Reason Start Date Expiration Date V isits Requested Visits Authorized [id number] New Request 06/09/2022 07/04/2023 1 1 Scheduling Instructions . Specialty Diagnoses / Procedures Referred By Contac t Referred To Contact Diagnoses Pain in prosthetic joint, sequela Procedures XR KNEE RIGHT 2 VIEWS XR KNEE RIGHT 3 VIEWS Navin Clark MD [address] [place] [phone] Referral ID Status Reason Start Date Expiration Date V isits Requested Visits Authorized [id number] New Request 02/07/2022 03/04/2023 1 1 Chief Complaint and Reason for Visit Chief Complaint RENAL F/U Reason for Visit CKD (chronic kidney disease) stage 3, GFR 30-59 ml/min Gout [id number] Iron deficiency Proteinuria Secondary hyperparathyroidism Additional Source Comments INFORMATION SOURCE (unrecogn ized section and content) DATE CREATED AUTHOR 09/16/2017 [facility] DATE CREATED AUTHOR AUTHOR'S ORGANIZ ATION 10/16/2019 [facility] DATE CREATED AUTHOR AUTHOR'S ORGANIZ ATION 12/28/2021 [facility] DATE CREATED AUTHOR AUTHOR'S ORGANIZ ATION 03/14/2022 [facility] DATE CREATED AUTHOR AUTHOR'S ORGANIZ ATION 05/11/2022 [facility] DATE CREATED AUTHOR AUTHOR'S ORGANIZ ATION 06/04/2022 [facility] DATE CREATED AUTHOR AUTHOR'S ORGANIZ ATION 07/24/2023 [facility] DATE CREATED AUTHOR AUTHOR'S ORGANIZ ATION 07/24/2023 [facility] DATE CREATED AUTHOR AUTHOR'S ORGANIZ ATION 08/25/2023 [facility] DATE CREATED AUTHOR AUTHOR'S ORGANIZ ATION 08/25/2023 [facility] REASON FOR VISIT (unrecogniz ed section and content) Specialty Diagnoses / Procedures Referred By Korin maldonado Referred To Contact Diagnoses Pain in prosthetic joint, sequela Procedures XR BONE LENGTH STUDY Navin Clark MD [address] [place] [address] Referral ID Status Reason Start Date Expiration Date V isits Requested Visits Authorized [id number] Pending Review 12/27/2021 01/21/2023 1 1 Reason Comments Pain New Patient Reason Comments Pain Reason Comments Consult Specialty Diagnoses / Procedures Referred By Korin maldonado Referred To Contact Nuclear Medicine Diagnoses Hx of total knee arthroplasty, right Abnormal laboratory test result Pain in prosthetic joint, subsequent encounter Procedures NUC WBC STUDY MO ABSCESS IMAGING, WHOLE BODY Vita Joshi, ELECTRO OPTICAL ENGINEER-TAB CUTTER [address] [place] [address] [facility] Nuclear Medicine [address] [place] [address] Referral ID Status Reason Start Date Expiration Date Visits Re quested Visits Authorized [id number] Closed 02/28/2022 03/25/2023 2 2 Reason Comments Bandemia Reason Comments Follow-up Reason Comments Follow-up Specialty Diagnoses / Procedures Referred By Korin maldonado Referred To Contact Diagnoses Hx of total knee arthroplasty, right Procedures XR KNEE RIGHT 3 VIEWS Navin Clark MD [address] [place] [address] Referral ID Status Reason Start Date Expiration Date V isits Requested Visits Authorized [id number] New Request 08/26/2022 09/20/2023 1 1 Reason Comments Post Op Visit Condition Update Referral ID Status Reason Start Date Expiration Date V isits Requested Visits Authorized [id number] New Request 09/30/2022 10/25/2023 1 1 Reason Onset Date Comments Med Refill 06/08/2023 Specialty Diagnoses / Procedures Referred By Contac t Referred To Contact Diagnoses Hx of total knee arthroplasty, right Procedures XR KNEE RIGHT 3 VIEWS Vita Joshi, ELECTRO OPTICAL ENGINEER-TAB CUTTER [address] [place] [address] Referral ID Status Reason Start Date Expiration Date V isits Requested Visits Authorized [id number] New Request 07/14/2023 08/07/2024 1 1 Care Teams (unrecognized sec tion and content) Application Security Engineer Relationship Specialty Start Date End Date BehzadsanjanaIrvinPatrick, [address] [facility] [place] [address] [place] [address] PCP - General Family Medicine 01/02/22 Application Security Engineer Relationship Specialty Start Date End Date BehzadsanjanaPatrick [address] [facility] [place] [address] [place] [address] PCP - General Family Medicine 01/02/22 Application Security Engineer Relationship Specialty Start Date End Date Behzadsanjana Patrick, [address] [facility] [facility] [place] [address] [place] [address] PCP - General Family Medicine 01/02/22 Application Security Engineer Relationship Specialty Start Date End Date Olivia Fatima [address] [place] [address] PCP - General Family Medicine 02/25/22 Application Security Engineer Relationship Specialty Start Date End Date Olivia [place] [address] PCP - General Family Medicine 02/25/22 Application Security Engineer Relationship Specialty Start Date End Date Patrick Odom DO [address] [place] [address] [place] [address] PCP - General Family Medicine 01/02/22 Application Security Engineer Relationship Specialty Start Date End Date Olivia Fatima [address] [place] [address] PCP - General Family Medicine 02/25/22 Application Security Engineer Relationship Specialty Start Date End Date Patrick Odom DO [address] [place] [address] [place] [address] PCP - General Family Medicine 01/02/22 Application Security Engineer Relationship Specialty Start Date End Date BehzadsanjanaPatrick DO [address] [place] [address] [place] [address] PCP - General Family Medicine 01/02/22 Application Security Engineer Relationship Specialty Start Date End Date Patrick Odom DO [address] [place] [place] [address] [place] [address] PCP - General Family Medicine 01/02/22 Application Security Engineer Relationship Specialty Start Date End Date BehzadsanjanaPatrick DO [address] [place] [place] [address] [place] [address] PCP - General Family Medicine 01/02/22 Application Security Engineer Relationship Specialty Start Date End Date Behzadsanjana Patrick [address] [place] [address] [place] [address] PCP - General Family Medicine 01/02/22 Application Security Engineer Relationship Specialty Start Date End Date Behzadsanjana DO Patrick [address] [place] [address] [place] [address] PCP - General Family Medicine 01/02/22 Application Security Engineer Relationship Specialty Start Date End Date Patrick Odom DO [address] [place] [address] [address] PCP - General Family Medicine 06/13/16 Application Security Engineer Relationship Specialty Start Date End Date Patrick Odom DO [address] [place] [address] [place] [address] PCP - General Family Medicine 01/02/22 Application Security Engineer Relationship Specialty Start Date End Date Patrick Odom DO [address] [place] [place] [address] [place] [address] PCP - General Family Medicine 01/02/22 Team Status: Active Member Role Status Dates Patrick Behzadsanjana DO Primary Care Provider Active Team Status: Inactive Member Role Status Dates Patrick BehzadDO sanjana Primary Care Provider Active Start: August 20, 2023 End: August 20, 2023 Odell Jones MD Attending Provider Active Start : August 20, 2023 End: August 20, 2023 Source Comments (unrecognize d section and content) In the event this informatio n is protected by the Federal Confidentiality of Alcohol and Drug Abuse Patient Records regulations: The Federal rules restrict any use of the information to criminally investigate or prosecute any alcohol or drug abuse patient.[facility] the event this information is protected by the Federal Confidentiality of Alcohol and Drug Abuse Patient Records regulations: The Federal rules restrict any use of the information to criminally investigate or prosecute any alcohol or drug abuse patient.[facility] the event this information is protected by the Federal Confidentiality of Alcohol and Drug Abuse Patient Records regulations: The Federal rules restrict any use of the information to criminally investigate or prosecute any alcohol or drug abuse patient.[facility] Scheduled Active and Recently Administ ered Medications (unrecognized section and content) Medication Order 06/09/2022 06/10/2022 06/11/2022 acetaminophen (TYLENOL) tablet 1,000 mg 1,000 mg, Oral, EVERY 6 HOURS NON-STANDARD, First dose on Thu06/09/22 at 1930, Until Discontinued, Maximum dose of acetaminophen is 4000 mg from all sources in 24 hours., Post-op/Post-Proc 1758 (Canceled Entry - Provider: Prerna Holden RN)2017 (Given - Provider: Carley Miller RN) 0153 (Given - Provider: Carley Miller RN)0832 (Given - Provider: Prerna Holden RN)1305 (Given - Provider: Prerna Holden RN)2143 (Given - Provider: Carley Miller RN) 0250 (Given - Provider: Carley Miller RN)0857 (Given - Provider: Erum Orozco RN - Comment: dose rescheduled d/t last dose given at 0250.)1206 (Given - Provider: Erum Orozco RN)1930 (Canceled Entry - Provider: System Discharge - Comment: Automatically canceled at discontinue of medication order) Allopurinol (ZYLOPRIM) tablet 300 mg 300 mg, Oral, DAILY EARLY EVENING, First dose on Thu06/09/22 at 1800, Until Discontinued 181 (Given - Provider: Prerna Holden RN) 1749 (Given - Provider: Prerna Holden RN) 1800 (Canceled Entry - Provider: System Discharge - Comment: Automatically canceled at discontinue of medication order) apixaban (ELIQUIS) tablet 2.5 mg 2.5 mg, Oral, EVERY 12 HOURS, First dose on Thu06/10/22 at 0900, Until Discontinued, Start in AM day after surgery, Indications: Venous Thromboembolism, Post-op/Post-Proc 0833 (Given - Provider: Prerna Holden RN)2144 (Given - Provider: Carley Miller RN) 0858 (Given - Provider: Erum Orozco RN) Atorvastatin (LIPITOR) tablet 20 mg 20 mg, Oral, DAILY, First dose on Thu06/10/22 at 0900, Until Discontinued 0833 (Given - Provider: Prerna Holden RN) 0857 (Given - Provider: Erum Orozco RN) ceFAZolin (ANCEF) 2 g in dextrose 100 mL premix IVPB (COMPLETED) 2 g, Intravenous, Administer over 30 Minutes, EVERY 8 HOURS NON-STANDARD, 3 doses, First dose on Thu06/09/22 at 2200, Last dose on Thu06/10/22 at 1400, Post-op/Post-Proc 2301 ($$New Bag$$ - Provider: Carley Miller RN) 0641 ($$New Bag$$ - Provider: Carley Miller RN)0711 (Stopped - Provider: Prerna Holden RN)1306 ($$New Bag$$ - Provider: Prerna Holden RN)1336 (Stopped - Provider: Prerna Holden RN) cloNIDine (CATAPRES) tablet 0.1 mg 0.1 mg, Oral, 2 TIMES DAILY, First dose on Thu06/09/22 at 1700, Until Discontinued, All for blood pressure less than 1 20 mmHg 1815 (Given - Provider: Prerna Holden RN) 0832 (Given - Provider: Prerna Holden RN)1749 (Given - Provider: Prerna Holden RN) 0857 (Given - Provider: Erum Orozco, RN)1700 (Canceled Entry - Provider: System Discharge - Comment: Automatically canceled at discontinue of medication order) dexAMETHasone (DECADRON) injection 10 mg (COMPLETED) 10 mg, Intravenous, EVERY 24 HOURS, 1 dose, First dose on Thu06/10/22 at 1400, 24 hours post op, Post-op/Post-Proc 1306 (Given - Provider: Prerna Holden RN) Diltiazem (CARDIZEM CD) capsule XL 180 mg 180 mg, Oral, 2 TIMES DAILY, First dose on Thu06/09/22 at 1700, Until Discontinued, Course for blood pressure less than 1 20 mmHg or heart rate less than 55 bpm 1815 (Given - Provider: Prerna Holden RN) 0831 (Given - Provider: Prerna Holden RN)1749 (Given - Provider: Prerna Holden RN) 0857 (Given - Provider: Erum Orozco RN)1700 (Canceled Entry - Provider: System Discharge - Comment: Automatically canceled at discontinue of medication order) Docusate (COLACE) capsule 100 mg 100 mg, Oral, 2 TIMES DAILY, First dose on Thu06/09/22 at 1730, Until Discontinued, Post-op/Post-Proc 1815 (Given - Provider: Prerna Holden RN) 0831 (Given - Provider: Prerna Holden RN)1749 (Given - Provider: Prerna Holden RN) 0858 (Given - Provider: Erum Orozco RN)1700 (Canceled Entry - Provider: System Discharge - Comment: Automatically canceled at discontinue of medication order) DULoxetine (CYMBALTA) capsule DR 60 mg 60 mg, Oral, DAILY AT BEDTIME, First dose on Thu06/09/22 at 2100, Until Discontinued, Swallow capsule whole; do not crush or chew. May add contents of capsule to apple juice or applesauce (but NOT chocolate) taking care not to crush the pellets and damage the enteric coating. 2016 (Given - Provider: Carley Miller, DEWAYNE) 2142 (Given - Provider: Carley Miller, DEWAYNE) faMOTIdine (PEPCID) tablet 20 mg 20 mg, Oral, 2 TIMES DAILY, First dose on Thu06/09/22 at 1700, Until Discontinued 1815 (Given - Provider: Prerna Holden RN) 0831 (Given - Provider: Prerna Holden RN)1749 (Given - Provider: Prerna Holden RN) 0858 (Given - Provider: Erum Orozco RN)1700 (Canceled Entry - Provider: System Discharge - Comment: Automatically canceled at discontinue of medication order) ferrous sulfate tablet 325 mg 325 mg, Oral, 3 TIMES DAILY WITH MEALS, First dose on Thu06/11/22 at 0800, Until Discontinued 0857 (Given - Provider: Erum Orozco RN)1206 (Given - Provider: Erum Orozco RN)1700 (Canceled Entry - Provider: System Discharge - Comment: Automatically canceled at discontinue of medication order) Folic acid (FOLVITE) tablet 1 mg 1 mg (1,000 mcg), Oral, DAILY, First dose on Thu06/10/22 at 0900, Until Discontinued 0833 (Given - Provider: Prerna Holden RN) 0857 (Given - Provider: Erum Orozco RN) furOSEmide (LASIX) tablet 20 mg 20 mg, Oral, DAILY, First dose on Thu06/10/22 at 0900, Until Discontinued, Hold for blood pressure less than 1 10 mmHg 0833 (Given - Provider: Prerna Holden RN) 0857 (Given - Provider: Erum Orozco RN) Ropivacaine (NAROPIN) 1 % 400 mg, EPINEPHrine PF (ADRENALIN) 1 MG/ML 1 mg, cloNIDine 100 MCG/ML 205 mcg, Sodium chloride 0.9% 45 mL 88.05 mL (total volume) (COMPLETED) Intra-articular, INTRA-OP ONCE, 1 dose, Starting on Thu06/09/22 at 1059, Until Discontinued, 88.05 mL, To be mixed by pharmacy NOT for IV use, Intra-op/Intra-Proc 1404 (Given - Provider: Navin Clark MD) Sodium bicarbonate tablet 650 mg 650 mg, Oral, 4 TIMES DAILY, First dose on Thu06/10/22 at 0800, Until Discontinued 0831 (Given - Provider: Prerna Holden RN)1306 (Given - Provider: Prerna Holden RN)1749 (Given - Provider: Prerna Holden RN)2144 (Given - Provider: Carley Miller RN) 0857 (Given - Provider: Erum Ernesto, RN)1206 (Given - Provider: Erum Orozco RN)1700 (Canceled Entry - Provider: System Discharge - Comment: Automatically canceled at discontinue of medication order) Spironolactone (ALDACTONE) tablet 25 mg 25 mg, Oral, DAILY, First dose on Thu06/10/22 at 0900, Until Discontinued, Max 400 mg/day hold for blood pressure less than 1 10 mmHg 0833 (Given - Provider: Prerna Holden RN) 0858 (Given - Provider: Erum Orozco RN) vancomycin (VANCOCIN) 1,000 mg in dextrose 200 ml premix IVPB (COMPLETED) 1,000 mg (rounded from 1,044 mg = 15 mg/kg 69.6 kg Adjusted weight), Intravenous, ONCE, 1 dose, On Thu06/10/22 at 0200, Infuse at a rate of 1 gram/hour. Extravasation Risk, Post-op/Post-Proc 0154 ($$New Bag$$ - Provider: Carley Miller RN)0700 (Stopped - Provider: Prerna Holden RN - Comment: not running upon arrival to floor for shift) Vancomycin (VANCOCIN) 1,500 mg in Sodium chloride 0.9%, with overfill 565 mL (total volume) IVPB (COMPLETED) 1,500 mg, Intravenous, ONCE, 1 dose, On Thu06/09/22 at 1100, Infuse at a rate of 1 gram/hour. Extravasation Risk, Pre-op/Pre-Proc 1129 ($$New Bag$$ - Provider: Prerna Holden RN)1300 (Stopped - Provider: Prerna Holden RN) Continuous Medication Order 06/09/2022 06/10/2022 06/11/2022 ropivacaine (NAROPIN) 0.2 % On-Q pump 750 mL Surgical Site, CONTINUOUS, Starting on Thu06/09/22 at 1100, Until Thu06/11/22 at 2025, Recovery to Continue 1634 ($$New Bag$$ - Provider: Martha Unger RN) 0730 (Rate/Dose Verify - Provider: Prerna Holden RN)1315 (Rate/Dose Verify - Provider: Prerna Holden RN)1755 (Rate/Dose Verify - Provider: Prerna Holden RN) Sodium chloride 0.9% IV solution (CANCELED) Intravenous, at 100 mL/hr, CONTINUOUS, Starting on Thu06/09/22 at 1100, Until Thu06/10/22 at 0730, Pre-op/Pre-Proc 1129 ($$New Bag$$ - Provider: Prerna Holden RN)1342 ($$New Bag$$ - Provider: RONNY Jay)1817 (Rate/Dose Verify - Provider: Prerna Holden RN) 0812 (Stopped - Provider: Prerna Holden RN) Sodium chloride 0.9% IV solution (CANCELED) Intravenous, at 100 mL/hr, CONTINUOUS, Starting on Thu06/09/22 at 1730, Until Thu06/10/22 at 0730, Convert IV to PRN adapter if adequate oral intake, Post-op/Post-Proc 1722 (Rate/Dose Verify - Provider: Prerna Holden RN) 0812 (Stopped - Provider: Prerna Holden RN) PRN Medication Order 06/09/2022 06/10/2022 06/11/2022 acetaminophen (TYLENOL) tablet 1,000 mg 1,000 mg, Oral, ONCE DIRECTED, 1 dose, Starting on Thu06/09/22 at 1056, Until Thu06/11/22 at 2025, See admin instructions, Administer 1 hour preop., Pre-op/Pre-Proc bisacodyl (DULCOLAX) suppository 10 mg 10 mg, Rectal, DAILY NEEDED, Starting on Thu06/09/22 at 1718, Until Thu06/11/22 at 2025, constipation, Post-op/Post-Proc ceFAZolin (ANCEF) 2 g in dextrose 100 mL premix IVPB (COMPLETED) 2 g, Intravenous, Administer over 30 Minutes, SUPERINTENDENT AUTOMOTIVE TO PROCEDURE, 1 dose, Starting on Thu06/09/22 at 1056, Until Discontinued, Other, Pre-operative antibiotic, For 15 Minutes, Pre-op/Pre-Proc 1347 (Given - Provider: RONNY Jay) HYDROmorphone (DILAUDID) injection 0.5 mg 0.5 mg, Intravenous, EVERY 10 MINUTES NEEDED, 4 doses, Starting on Thu06/09/22 at 1611, Until Thu06/11/22 at 2025, Other, VAS over 3/10, Hold for RR less than 12 VAS over 3/10, Recovery HYDROmorphone (DILAUDID) injection 0.5 mg 0.5 mg, Intravenous, EVERY 4 HOURS NEEDED, Starting on Thu06/09/22 at 1718, Until Thu06/11/22 at 2025, Severe Pain, Post-op/Post-Proc Ondansetron 4mg/2ml (ZOFRAN) injection 4 mg 4 mg, Intravenous, EVERY 4 HOURS NEEDED, Starting on Thu06/09/22 at 1718, Until Thu06/11/22 at 2025, Nausea / Vomiting, Post-op/Post-Proc oxyCODONE (ROXICODONE) tablet 5-10 mg 5-10 mg, Oral, EVERY 4 HOURS NEEDED, Starting on Thu06/09/22 at 1718, Until Thu06/11/22 at 2025, moderate-severe pain, If pain unrelieved with oxycodone, contact pharmacist to enter order for Oxycodone ER 10mg PO Q12H for 3 days, Post-op/Post-Proc 2017 (Given - Provider: Carley Miller, RN) 0645 (Given - Provider: Carley Miller, RN)1305 (Given - Provider: Prerna Holden, RN) 0431 (Given - Provider: Carley Miller, RN) polymyxin B sulfate 500,000 Units in Sodium chloride 0.9 % 3,000 mL irrigation solution NEEDED, Starting on Thu06/09/22 at 1403, Until Thu06/11/22 at 2025, Intra-op/Intra-Proc 1403 (Given - Provider: Navin Clark MD - Comment: [employer]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) senna-docusate (SENOKOT-S) 8.6-50 MG per tablet 2 tablet 2 tablet, Oral, 2 TIMES DAILY NEEDED, Starting on Thu06/09/22 at 1718, Until Thu06/11/22 at 2025, constipation, Post-op/Post-Proc Sodium chloride 0.9 % irrigation NEEDED, Starting on Thu06/09/22 at 1402, Until Thu06/11/22 at 2025, Intra-op/Intra-Proc 1402 (Given - Provider: Navin Clark MD - Comment: given to sterile field) sodium phosphate w/sodium biphosphate (FLEETS) enema 1 enema 1 enema, Rectal, DAILY NEEDED, Starting on Thu06/09/22 at 1718, Until Thu06/11/22 at 2025, Refractory Constipation, use per package instructions, Post-op/Post-Proc tranexamic acid (LYSTEDA) tablet 1,950 mg 1,950 mg, Oral, ONCE DIRECTED, 1 dose, Starting on Thu06/09/22 at 1056, Until Thu06/11/22 at 2025, See admin instructions, Administer 2 hours preop, Pre-op/Pre-Proc Vancomycin (VANCOCIN) injection NEEDED, Starting on Thu06/09/22 at 1403, Until Thu06/11/22 at 2025, Intra-op/Intra-Proc 1403 (Given - Provider: Navin Clark MD) Zolpidem (AMBIEN) tablet 5 mg 5 mg, Oral, DAILY AT BEDTIME NEEDED, Starting on Thu06/09/22 at 1718, Until Thu06/11/22 at 2025, Sleep, Post-op/Post-Proc Goals (unrecognized section and content) Goals may be documented in a n alternate section FOR RECORDS PERTAINING TO PATIENTS WHO ARE OR HAVE BEEN ENROLLED IN A CHEMICAL DEPENDENCY/SUBSTANCEABUSE PROGRAM, SOME INFORMATION MAY BE OMITTED. This clinical summary was aggregated from multiple sources. Caution should be exercised in using it in the provision of clinical care. This summary normalizes information from multiple sources, and as a consequence, information in this document may materially change the coding, format and clinical context of patient data. In addition, data may be omitted in some cases. CLINICAL DECISIONS SHOULD BE BASED ON THE PRIMARY CLINICAL RECORDS. [employer] provides no warranty or guarantee of the accuracy or completeness of information in this document.
== END 2023-09-08 13:40 | disposition home or self-care (01) ==
LOC: MAMMO 13:39
PROVIDERS: PCP Family Medicine; Visit Provider Family Medicine
DX: N64.9 Disorder of breast, unspecified (principal); N63.10 Unspecified lump in the right breast, unspecified quadrant; Z80.1 Family history of malignant neoplasm of trachea, bronchus and lung
CPT/HCPCS: 76642; 77066

== ENCOUNTER 2023-09-15 09:52 | Day surgery (SDC) | payer MEDICARE, SELFPAY ==
--- NOTE | 2023-09-15 | US_ITS ---
[address] [address] Patient Name: SD ERHMAN MRN: [id number] date: 1950 Sex: F Assigned Patient Location: US Current Patient Location: US Accession/Order Number: [id number] Exam Date: 09/15/2023 10:00 Report Date: 09/15/2023 11:23 At the request of: ASH ODOM Procedure: US breast vac bx w/ clip RT EXAMINATION: US breast vac bx w/ clip RT HISTORY: Right breast mass COMPARISON: No relevant comparison available. TECHNIQUE: After obtaining informed consent, an ultrasound-guided biopsy was performed in the usual sterile manner. FINDINGS: IMAGING: Ultrasound BIOPSY NEEDLE: 13-gauge mammotome vacuum assisted core needle SPECIMEN TYPE, #, LOCATION: 5 samples, retroareolar right breast lobular mass measuring 5.2 mm MEDICATION: 2 cc 1% buffered lidocaine superficial. 8 cc 1% buffered lidocaine with epinephrine deep COMPLICATIONS: None. LABORATORY: Pending pathology OTHER: Clip successfully deployed. US/US breast vac bx w/ clip RT IMPRESSION: Uneventful ultrasound guided biopsy. The patient was instructed to obtain follow up care and biopsy results from the referring physician. Electronically authenticated by: SHAMA ANGELA Date: 09/15/2023 11:23
--- NOTE | 2023-09-15 | MM_ITS ---
Patient Name: SD REHMAN MR#: [id number] : 1950 Exam Date: 09/15/2023 Ordering Doctor: DR ASH ODOM This report includes an Addendum and supersedes previous reports for this exam. RADIOLOGY REPORT PROCEDURE: MM POST BIOPSY RT COMPARISON: MM TOMOSYNTHESIS SCREENING BI, 08/31/2023. MM DIAGNOSTIC MAMMO BI, 09/08/2023. INDICATIONS: Right breast mass BREAST COMPOSITION: The breasts are heterogeneously dense,which may obscure small masses. FINDINGS: Post-Procedure Mammogram for Marker Placement BIOPSY MARKER: A tophat shaped metallic marker has been placed in the targeted location within the upper outer quadrant of the right breast. BREAST FINDINGS: Postprocedural changes Dictated by: Madan Bocanegra MD on 09/15/2023 at 11:57 Approved by: Madan Bocanegra MD on 09/15/2023 at 11:58 ADDENDUM: FINDINGS: DIAGNOSTIC CATEGORY 4--SUSPICIOUS FOR MALIGNANCY. 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 Surgical consultation is recommended RECOMMENDATIONS: SURGICAL CONSULTATION. Dictated by: Madan Bocanegra MD on 09/29/2023 at 14:09 Approved by: Madan Bocanegra MD on 09/29/2023 at 14:12
[2023-09-15] MEDS: LIDOCAINE HCL 10 ML, SODIUM BICARBONATE 1 MEQ INJ (10:00)
--- OUTSIDE RECORDS SUMMARY | 2023-09-15 10:06 | XMS_ITS | CCD ---
Author Organization [facility] Care Team Providers Care Inside Sales Trainer Name Role Phone PHYSICIAN, DEFAULT Unavailable Unavailable PHYSICIAN, DEFAULT Unavailable Unavailable Malina Lafleur Unavailable Odell Jones Unavailable Curtis Watkins Unavailable Jignesh He Attending Unavailable PATRICK ODOM Primary Care Unavailable Jignesh He Admitting Unavailable Jignesh He Attending Unavailable PATRICK ODOM Primary Care Unavailable Jignesh He Admitting Unavailable Furlong Ptarick SANTA Primary Care Provider Ruby, Olivia R [...] PATRICK Roche Primary Care Unavailable MENDOZA, DR LEE Consulting Unavailable MENDOZA, DR LEE Attending Unavailable [...] Unavailable Furlong Patrick SANTA [facility] Primary Care Provider [phone] RUPINDER GIORDANO Attending Unavailable RUPINDER GIORDANO Attending [...] JOSHI Attending Unavailable AMBER, NAVIN Referring Unavailable FOSTER, NAVIN Attending Unavailable FURLONG, PATRICK Primary Care Unavailable FOSTER, NAVIN Referring Unavailable FOSTER, NAVIN Attending Unavailable SELF, SELF Referring Unavailable FURLONG, PATRICK Primary Care Unavailable FOSTER, NAVIN Attending Unavailable FOSTER, NAVIN Referring Unavailable FURLONG, PATRICK Primary Care Unavailable FURLONG, PATRICK G Attending Unavailable FURLONG, PATRICK G Referring Unavailable FURLONG, PATRICK G Primary Care Unavailable FURLONG, PATRICK G Referring Unavailable FURLONG, PATRICK G Primary Care Unavailable CYNTHIAGUIDO LOPEZ Admitting Unavailable GUIDO HIGGINBOTHAM Attending Unavailable GUIDO HIGGINBOTHAM Referring Unavailable FURLONG, PATRICK G Primary Care Unavailable YUHASGUIDO Attending Unavailable YUHASGUIDO Referring Unavailable FURLONG, PATRICK G Primary Care [...] by mouth every 4 hours as needed. [id number] 200 actuat albuterol 0.09 mg/actuat metered dose [...] 12:00am Start: 08-11-2022 take 1 tablet by brittny once daily allopurinoL (ZYLOPRIM) 300 mg tablet [...] tablet (12 sources) Factor Xa Inhibitor Start: 4 take 5 mg by mouth twice daily [...] oral tablet (7 sources) Vitamin D Start: 4 take 1000 [IU] by mouth once daily Cholecalciferol (Vitamin D3) Active 1000 UNIT PO Daily August 20, 2023 12:00am take 1 capsule by mo ut in the morning cholecalciferol, vitamin D3, 25 [...] 20, 2023 12:00am take 1 tablet by [facility] once daily as needed colchicine 0.6 MG [...] than 55 bpm take 1 capsule by [facility] twice daily diltiazem 240 MG Cap SR 24HR Take 1 capsule by mouth 2 times daily. Active dilTIAZem (CARDI ZEM) 120 mg tablet Take 120 mg by mouth. 0 Active take 1 capsule by nm ut twice daily diltiazem 120 MG Cap SR [...] sources) Serotonin and Norepinephrine Reuptake Inhibitor Start: take 1 capsule by mouth twice daily [...] coating. Start: 11-05-2021 take 1 capsule by mo ut once daily DULoxetine [address] [...] a day for 14 day(s) Nov, Active Jcvnkyrxozu-Oynhsjbqi-Ewgogn er (19 sources) Anticholinergic, Corticosteroid, beta2-Adrenergic Agonist Start: 08-20-2023 Gbnukvxddbv-Dxjobjvqw-Thlzvv er (Trelegy Ellipta) 100-62.5-25 mcg blister with device Active 1 INH INHALATION Daily August 20, 2023 12:00am Start: 03-25-2022 take 1 puff(s) by mo uth once daily TRELEGY ELLIPTA 100-62.5-25 mcg blister with device INHALE 1 PUFF BY MOUTH ONCE EVERYDAY *RINSE MOUTH AFTER USE* 0 03/25/2022 Active take 1 puff(s) by in halation once daily Igmfyprenif-Thujtyojo-Kixhku (Trelegy Ellipta) 100-62.5-25 MCG/INH Aerosol Powder, breath [...] 06-09-2023 take 1 tablet by brittny th once daily furosemide (LASIX) 20 mg tablet Take 1 tablet (20 mg total) by mouth daily. 90 tablet 1 06/09/2023 Active Start: 11-26-2021 End: 06-08-2023 take 1 tablet by mouth once daily furOSEmide 20 MG tablet TAKE 1 TABLET BY MOUTH EVERY DAY FOR 90 DAYS 11/26/2021 Active Comment on above: TAKE 1 TABLET BY BRITTNY TH EVERY DAY FOR 90 DAYS loratadine 10 mg oral tablet (12 sources) Loratadine 10 MG tablet Take 1 tablet by mouth as needed. Active Comment on above: Take 10 mg by mouth. losartan potassium 50 mg oral tablet (2 sources) Angiotensin 2 Receptor Michael take 1 tablet by mouth every twenty-four hours Losartan Potassium 50 MG 1 tablet Orally Once a day Active kmokmfzj-ypeq-MW-calci um &mins (THERAGRAN-M) 9 mg iron-400 mcg tablet (1 source) Start: zptswfhy-zvof-DR-c alcium &mins (THERAGRAN-M) 9 mg iron-400 mcg [...] by mouth once daily. Stiolto Respimat Inhalation [place] (4 sources) take 2 puff(s) by inhalation once daily Stiolto Respimat Inhalation [place] 2 puffs Once daily Active therapeutic multivitamin-minerals tablet (9 sources) Start: take 1 tablet by mouth at bedtime [...] mg docusate sodium 50 mg / sennosides, [facility] 8.6 mg oral tablet (1 source) Start: [...] atrial fibrillation; Translations: [Paroxysmal atrial fibrillation] Onset: Chronic Chronic kidney disease (20 sources) Chronic [...] Neoplasms of unspecified nature or uncertain behavior (2 sources) Neoplasm of unspecified behavior of bone, soft tissue, and skin; Translations: [Neoplasm of unspecified behavior of digestive system] Onset: 4 Episodic Nutritional deficiencies (3 sources) Iron deficiency; Translations: [Iron deficiency] Episodic Osteoarthritis (2 sources) Primary generalized (osteo)arthritis; Translations: [Osteoarthritis] Onset: 2 05-29-2022 Chronic Other acquired deformities (3 sources) Lumbar spondylolisthesis; Translations: [Spondylolisthesis, lumbar region] Episodic Other and unspecified benign neoplasm (1 source) Benign neoplasm of ascending colon; Translations: [Benign neoplasm of ascending colon] Onset: 4 Episodic Other connective tissue disease (4 sources) [...] conditions (not mental disorders or infectious disease) (10 sources) Unspecified abnormal finding in specimens from [...] [CONTACT W/AND (SUSP) EXPOS COVID-19] Onset: 2 Unclassified (1 source) screening Onset: 4 Past or Other Problems Problem Classification Problem [...] 10-24-2021 Episodic Other aftercare (1 source) Other intermission coordinator (current) drug therapy; Translations: [OTH ASSISTANT SUPERINTENDENT FOR CURRICULUM CURRENT DRUG THERAPY] Onset: 12-09-2021 Episodic Other aftercare (1 source) terminal gauger (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 anticoagulants; Translations: [RETIREMENT CURRNT USE ANTICOAGULANTS] Onset: 11-25-2021 Episodic Other aftercare (11 sources) Patient encounter status; Translations: [half-way (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 non-steroidal anti-inflammatories (NSAID)] Onset: 03-20-2023 Episodic Other and unspecified benign neoplasm (1 [...] Test Name Value Interpretation Reference Range Facility Surgical Pathologyon 024 Surgical Pathology Normal [facility] Comment on above: Result Comment: [facility] [address] [place] [address] Surgical Pathology Consultation Patient Name:SD REHMAN:1950 (Age: 73)Gender:FTaken:4Reported:4Physician(s):Guido Higginbotham MD ([phone])Copy To: Rec. #:[id number]: #[id number] Final Pathologic Diagnosis 1. Ascending colon, polypectomy: Tubular adenomas. 2. Colon at 110 cm, polypectomy: Fragments of tubular adenoma. 3. Colon at 100 cm, polypectomy: Tubular adenoma. 4. Colon at 90 cm, polypectomy: Tubular adenomas. 5. Colon at 70 cm, polypectomy: Minute fragment of colonic mucosa without adenomatous dysplasia. 6. Colon at 65 cm, polypectomy: Tubular adenoma. 7. Colon at 25 cm, polypectomy: Hyperplastic polyp. 8. Colon at 15 cm, polypectomy: Sessile serrated lesion without dysplasia. 9. Rectum, polypectomy: Sessile serrated lesion without dysplasia. Report Electronically Signed Out rg/4Rmo Koenig MD Interpretation [place] [address], License number: [id number]. Clinical History Screening. Gross Description 1. Received in formalin labeled, SHERIE, ascending are 6 of pale childs 0.2 to 0.4 cm soft tissue bits. The specimen is filtered and entirely submitted in a single cassette. (1, ns, [id number], m8) SM 2. Received in formalin labeled, SHERIE, colon at 110 cm are 2 childs-manzo 0.1 and 0.2 cm soft tissue bits. The specimen is filtered and entirely submitted in a single cassette. (1, ns, [id number], m8) SM 3. Received in formalin labeled, SHERIE, 100 cm are two manzo-childs 0.1 and 0.3 cm soft tissue bits. The specimen is filtered and entirely submitted in a single cassette. (1, ns, [id number], m8) SM 4. Received in formalin labeled, WEASNER, 90 cm are 4 manzo-childs polypoid portions of tissue that range from 0.2 to 0.6 cm. The specimen is filtered and entirely submitted in a single cassette. (1, ns, [id number], m8) SM 5. Received in formalin labeled, SHERIE, 70 cm is a childs-manzo 0.2 cm soft tissue bit. The specimen is filtered and entirely submitted in a single cassette. (1, ns, [id number], m8) SM 6. Received in formalin labeled SHERIE, 65 cm are 2 pale childs-manzo soft tissue bits less than 0.1 and 0.3 cm in greatest dimension. The specimen is filtered and entirely submitted in a single cassette. (1, ns, [id number], m8) SM 7. Received in formalin labeled, SHERIE, 25 cm is a manzo-childs 0.3 cm soft tissue bit. The specimen is filtered and entirely submitted in a single cassette. (1, ns, [id number], m8) SM 8. Received in formalin labeled, SHERIE, 15 cm is a manzo-childs polypoid portion of tissue 0.5 cm in greatest dimension. The specimen is bisected and entirely submitted in a single cassette. (1, ns, [id number], m8) SM 9. Received in formalin labeled, SHERIE, rectum check are 3 manzo-childs polypoid portions of tissue 0.3-0.4 and 0.5 cm in greatest dimension. The surgical margins of the largest polyp are inked the specimen is entirely submitted in a single cassette. (1, ns, [id number], m8) SM slm/09/10/2023GP Specimen(s) Received 1: Ascending colon polyp x2 2: Colon polyp 110cm 3: Colon polyp 100 cm x2 4: Colon polyp 90 cm x3 5: Colon polyp 70 cm 6: Colon polyp 65 cm x2 7: Colon polyp 25 cm 8: Colon polyp 15 cm x2 9: Rectal polyp x3 Fee Codes(s): 1; 23498 2; 46425 3; 21389 4; 71516 5; 60649 6; 75813 7; 39104 8; 68027 9; 31196 HGB A1C (GLYCO-HGB)on 2023 Glucose [Mass/Vol] 120 mg/dL Normal [facility] Comment on above: Performed By: #### 2 4331-1, 3016-3, SHYAM #### [facility] ([id number]) [address] [facility], [address] [address] HbA1c (Bld) [Mass fraction] 5.8 % High 4.4-5.6 [facility] Comment on above: Result Comment: NOTE ADA Guidelines Result HgbA1c Normal : less than 5.7 % Prediabetes : 5.7 % to 6.4 % Diabetes : > 6.4 % Use with caution in patients with abnormal hemoglobin variants as the half-life of red blood cells and in vivo glycation rates are affected. Performed By: #### 2 4331-1, 3016-3, SHYAM #### [facility] ([id number]) [address] [facility], [address] [address] Lipid 1996 panelon 4 Cholesterol [Mass/Vol] 150 mg/dL Normal 150-200 [facility] Comment on above: Performed By: #### 2 4331-1, 6-3, SHYAM #### [facility] ([id number]) [address] [facility], [address] [address] Cholesterol in HDL [Mass/Vol] 45 mg/dL Normal >39 [facility] Comment on above: Result Comment: HDL <40 mg/dL - High Risk HDL > or = 40mg/dL- Desirable HDL >60 mg/dL - Negative Risk Performed By: #### 2 4331-1, 3016-3, RIVER1C #### [facility] ([id number]) [address] [facility], [address] [address] Cholesterol in LDL [Mass/Vol] 68 mg/dL Normal <130 [facility] Comment on above: Result Comment: LDL <100 mg/dL - Desirable LDL >160 mg/dL - High Risk Performed By: #### 2 4331-1, 3016-3, HA1C #### [facility] ([id number]) [address], [address] [address] Cholesterol in VLDL [Mass/Vol] 37 mg/dL High 0-30 [facility] Comment on above: Performed By: #### 2 4331-1, 6-3, RIVER1C #### [facility] ([id number]) [address], [facility] [address] [place] [address] CHOLESTEROL:HDL 3.3 Normal 1.0-5.0 [facility] Comment on above: Performed By: #### 2 4331-1, 6-3, HA1C #### [facility] ([id number]) [address], [facility] [address] [place] [address] Triglyceride [Mass/Vol] 183 mg/dL High 27-150 [facility] Comment on above: Performed By: #### 2 4331-1, 6-3, HA1C #### [facility] ([id number]) [address], [address] [address] TSH Qnon 08-24-2023 TSH 1.10 uIU/mL Normal 0.49-4.67 [facility] Comment on above: Performed By: #### 2 4331-1, 3016-3, HA1C #### [facility] ([id number]) [address], [facility] [address] [place] [address] Office Visiton 12-15-2022 Follow-up visit [id number] Sd Rehman 1950 F Date Provider Department Center 12/15/2022 3848SophiaRUPINDER GIORDANO JS Chavez [facility] Family History Problem Relation Age of Onset Hypertension Mother Heart disease Mother Cancer Father Family Status - Relation Status Age at Mother Father Level of Service:92884 [place] OFFICE/OUTPATIENT ESTABLISHED MOD MDM 30-39 MIN [facility] Office Visiton 09-22-2022 Follow-up visit [id number] Sd Rehman Melchor 1950 F Date Provider Department Center 09/22/2022 3848RUPINDER GIORDANO JS [facility] Family History Problem Relation Age of Onset Hypertension Mother Heart disease Mother Cancer Father Family Status - Relation Status Age at Mother Father Level of Service:90164 LA OFFICE/OUTPATIENT ESTABLISHED LOW MDM 20-29 MIN Normal [facility] CBC, EDIF, PLATELETon 2022 ABSOLUTE BASOPHIL COUNT 0.0 10*3/uL 0.0 - 0.2 10*3/uL [facility] Basophils/100 WBC (Bld) 0.1 % 0.0 - 2.0 % [facility] Differential cell count method Nom (Bld) AUTO DIFF % [facility] Eosinophils (Bld) [#/Vol] 0.0 10*3/uL 0.0 - 0.7 10*3/uL [facility] Eosinophils/100 WBC (Bld) 0.0 % 0.0 - 11.0 % [facility] Erythrocyte distribution width (RBC) [Ratio] 14.7 % High 11.5 - 14.5 % [facility] Hematocrit (Bld) [Volume fraction] 29.0 % Low 36.0 - 48.0 % [facility] Hemoglobin (Bld) [Mass/Vol] 9.5 g/dL Low [facility] Interpretation and review of laboratory results Abnormal [facility] Lymphocytes (Bld) [#/Vol] 0.9 10*3/uL Low 1.2 - 3.4 10*3/uL [facility] Lymphocytes/100 WBC (Bld) 5.1 % Low 20.0 - 55.0 % [facility] MCH (RBC) [Entitic mass] 31.1 pg 26.0 - 35.0 PG [facility] MCHC (RBC) [Mass/Vol] 32.7 g/dL [facility] MCV (RBC) [Entitic vol] 95.0 fL [facility] Monocytes (Bld) [#/Vol] 1.3 10*3/uL High 0.0 - 0.7 10*3/uL [facility] Monocytes/100 WBC (Bld) 7.3 % 0.0 - 10.0 % [facility] Neutrophils (Bld) [#/Vol] 15.5 10*3/uL High 1.4 - 6.5 10*3/uL [facility] Neutrophils/100 WBC (Bld) 87.5 % High 37.0 - 75.0 % [facility] Platelet mean volume (Bld) [Entitic vol] 8.1 fL [facility] Platelets (Bld) [#/Vol] 330 10*3/uL 130.0 - 400.0 10*3/uL [facility] RBC (Bld) [#/Vol] 3.05 10*6/uL Low 4.0 - 5.4 10*6/uL [facility] WBC (Bld) [#/Vol] 17.7 10*3/uL High 3.6 - 11.0 10*3/uL [facility] RENAL FUNCTION PANELon 06-11 Albumin [Mass/Vol] 3.1 G/dl Low 3.5 - 5.0 G/dl [facility] Calcium [Mass/Vol] 8.6 mg/dL [facility] Chloride [Moles/Vol] 99 mmol/L [facility] CO2 [Moles/Vol] 21 mmol/L Low [facility] Creatinine [Mass/Vol] 1.48 mg/dL High [facility] GFR COMMENT Average GFR for 70+ years old = 75. [facility] Comment on above: Chronic Kidney disea se, GFR = <60. Kidney failure, GFR = <15. The GFR estimate is not adjusted for extreme body surface area or acute process, nor has it been validated for women or ethnic groups other than and . GFR/1.73 sq M.predicted among blacks MDRD (S/P/Bld) [Vol rate/Area] 45 mL/min/{1.73_m2} ml/min/1.73sq .m [facility] GFR/1.73 sq M.predicted among non-blacks MDRD (S/P/Bld) [Vol rate/Area] 37 mL/min/{1.73_m2} ml/min/1.73sq .m [facility] Glucose post fast [Mass/Vol] 137 mg/dL High [facility] Comment on above: NORMAL <100 mg/dL PREDIABETES 101-126 mg/dL DIABETES 126 mg/dL or higher Interpretation and review of laboratory results Abnormal [facility] Phosphate [Mass/Vol] 3.2 mg/dL [facility] Potassium [Moles/Vol] 4.2 mmol/L [facility] Sodium [Moles/Vol] 132 mmol/L Low [facility] Urea nitrogen [Mass/Vol] 36 mg/dL High [facility] CBC, EDIF, PLATELETon 2022 ABSOLUTE BASOPHIL COUNT 0.0 10*3/uL 0.0 - 0.2 10*3/uL [facility] Basophils/100 WBC (Bld) 0.1 % 0.0 - 2.0 % [facility] Differential cell count method Nom (Bld) AUTO DIFF % [facility] Eosinophils (Bld) [#/Vol] 0.0 10*3/uL 0.0 - 0.7 10*3/uL [facility] Eosinophils/100 WBC (Bld) 0.0 % 0.0 - 11.0 % [facility] Erythrocyte distribution width (RBC) [Ratio] 14.7 % High 11.5 - 14.5 % [facility] Hematocrit (Bld) [Volume fraction] 32.2 % Low 36.0 - 48.0 % [facility] Hemoglobin (Bld) [Mass/Vol] 10.5 g/dL Low [facility] Interpretation and review of laboratory results Abnormal [facility] Lymphocytes (Bld) [#/Vol] 0.8 10*3/uL Low 1.2 - 3.4 10*3/uL [facility] Lymphocytes/100 WBC (Bld) 4.8 % Low 20.0 - 55.0 % [facility] MCH (RBC) [Entitic mass] 31.3 pg 26.0 - 35.0 PG [facility] MCHC (RBC) [Mass/Vol] 32.7 g/dL [facility] MCV (RBC) [Entitic vol] 95.6 fL [facility] Monocytes (Bld) [#/Vol] 0.5 10*3/uL 0.0 - 0.7 10*3/uL [facility] Monocytes/100 WBC (Bld) 2.8 % 0.0 - 10.0 % [facility] Neutrophils (Bld) [#/Vol] 14.8 10*3/uL High 1.4 - 6.5 10*3/uL [facility] Neutrophils/100 WBC (Bld) 92.3 % High 37.0 - 75.0 % [facility] Platelet mean volume (Bld) [Entitic vol] 7.7 fL [facility] Platelets (Bld) [#/Vol] 352 10*3/uL 130.0 - 400.0 10*3/uL [facility] RBC (Bld) [#/Vol] 3.37 10*6/uL Low 4.0 - 5.4 10*6/uL [facility] WBC (Bld) [#/Vol] 16.1 10*3/uL High 3.6 - 11.0 10*3/uL [facility] NOVEL CORONAVIRUS LAB 1 - NA SOPHARYNGEALon 06-10-2022 NARRATIVE -1 This test was performed using isothermal GABRIELA and has been approved as Emergency Use Authorization (EUA) for the qualitative detection [id number] nucleic acid. [facility] SARS-CoV-2 (COVID-19) RNA GABRIELA+probe Ql (Unsp spec) Not detected NOT DETECTED [facility] Comment on above: Negative results do not [...] patient is critically ill or clinically deteriorating. [facility] RENAL FUNCTION PANELon 06-10 Albumin [Mass/Vol] 3.3 G/dl Low 3.5 - 5.0 G/dl [facility] Calcium [Mass/Vol] 8.9 mg/dL [facility] Chloride [Moles/Vol] 102 mmol/L [facility] CO2 [Moles/Vol] 21 mmol/L Low [facility] Creatinine [Mass/Vol] 1.40 mg/dL High [facility] GFR COMMENT Average GFR for 70+ years old = 75. [facility] Comment on above: Chronic Kidney disea se, GFR = <60. Kidney failure, GFR = <15. The GFR estimate is not adjusted for extreme body surface area or acute process, nor has it been validated for women or ethnic groups other than and . GFR/1.73 sq M.predicted among blacks MDRD (S/P/Bld) [Vol rate/Area] 48 mL/min/{1.73_m2} ml/min/1.73sq .m [facility] GFR/1.73 sq M.predicted among non-blacks MDRD (S/P/Bld) [Vol rate/Area] 40 mL/min/{1.73_m2} ml/min/1.73sq .m [facility] Glucose post fast [Mass/Vol] 158 mg/dL High [facility] Comment on above: NORMAL <100 mg/dL PREDIABETES 101-126 mg/dL DIABETES 126 mg/dL or higher Interpretation and review of laboratory results Abnormal [facility] Phosphate [Mass/Vol] 3.8 mg/dL [facility] Potassium [Moles/Vol] 4.6 mmol/L [facility] Sodium [Moles/Vol] 133 mmol/L Low [facility] Urea nitrogen [Mass/Vol] 30 mg/dL High [facility] REPEAT ABO/RH (D) TYPINGon 0 06-09-2022 ABO and Rh group Nom (Bld ) Positive [facility] SCREEN: MRSA ONLY, NARES (IS OLATION SCREEN)on 06-09-2022 MRSA isol Org specific cx Ql (Nose) Not detected NOT DETECTED [facility] STAPHYOCOCCUS AUREUS BY PCR Not detected NOT DETECTED [facility] XR Knee - right 2 Viewson [...] of complication. Expected perioperative soft tissue changes. 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 on 05/29/2022 at 17:11 Normal [facility] PTH INTACTon 05-29-2022 PTH, Intact 50 pg/mL Normal 15-65 [facility] Comment on above: Performed By: #### M G, RENAL, URIC #### [facility] [address] [address] [address] Demetra Costa HEMOGRAM AND PLATELon 2022 Hematocrit (Bld) [Volume fraction] 34.9 % Critically low 36.0-48.0 [facility] Comment on above: Performed By: #### H H #### [facility] [address] [place] [address] Dr. Demetra Costa Hemoglobin (Bld) [Mass/Vol] 11.2 g/dL Critically low 12.0-16.0 [facility] Comment on above: Performed By: #### H H #### [facility] [address] [address] [address] Demetra Costa MCH (RBC) [Entitic mass] 30.9 pg Normal 26.7-34.0 [facility] Comment on above: Performed By: #### H H #### [facility] [address] [place] [address] Dr. Demetra Costa MCHC (RBC) [Mass/Vol] 32.1 g/dL Normal 29.9-35.2 [facility] Comment on above: Performed By: #### H H #### [facility] [address] [address] [address] Demetra Costa MCV (RBC) [Entitic vol] 96.4 fL Normal 81.0-99.0 [facility] Comment on above: Performed By: #### H H #### [facility] [address] [place] [address] Dr. Demetra Costa PLT 341 103/ul Normal 150-450 [facility] Comment on above: Performed By: #### H H #### [facility] [address] [address] [address] Demetra Costa RBC 3.62 106/ul Critically low 4.20-5.40 [facility] Comment on above: Performed By: #### H H #### [facility] [address] [address] [address] Demetra Costa WBC 9.8 103/ul Normal 4.0-11.0 [facility] Comment on above: Performed By: #### H H #### [facility] [address] [place] [address] Dr. Demetra Costa MAGNESIUMon 05-28-2022 Magnesium [Mass/Vol] 1.9 mg/dL Normal 1.8-2.4 [facility] Comment on above: Performed By: #### M G, RENAL, URIC #### [facility] [address] [place] [address] Dr. Demetra Costa RENAL FUNCTION PANELon 05-28 Albumin [Mass/Vol] 3.2 g/dL Critically low 3.4-5.0 [facility] Comment on above: Performed By: #### M G, RENAL, URIC #### [facility] [address] [address] [address] Demetra Costa Calcium [Mass/Vol] 9.4 mg/dL Normal 8.5-10.1 [facility] Comment on above: Performed By: #### M G, RENAL, URIC #### [facility] [address] [address] [address] Demetra Costa Chloride [Moles/Vol] 103 mmol/L Normal 98-107 [facility] Comment on above: Performed By: #### M G, RENAL, URIC #### [facility] [address] [address] [address] Demetra Costa CO2 [Moles/Vol] 25.4 mmol/L Normal 21.0-32.0 [facility] Comment on above: Performed By: #### M G, RENAL, URIC #### [facility] [address] [address] [address] Demetra Costa Creatinine [Mass/Vol] 1.52 mg/dL Critically high 0.55-1.02 [facility] Comment on above: Performed By: #### M G, RENAL, URIC #### [facility] [address] [place] [address] Dr. Demetra Costa EGFR-AF UZBEK 41 mL/min/1.73m2 Critically low >=60 [facility] Comment on above: Performed By: #### M G, RENAL, URIC #### [facility] [address] [place] [address] Dr. Demetra Costa EGFR-NON AF UZBEK 34 mL/min/1.73m2 Critically low >=60 [facility] Comment on above: Performed By: #### M G, RENAL, URIC #### [facility] [address] [place] [address] Dr. Demetra Costa Glucose [Mass/Vol] 115 mg/dL Critically high 74-106 [facility] Comment on above: Performed By: #### M G, RENAL, URIC #### [facility] [address] [place] [address] Dr. Demetra Costa Phosphate [Mass/Vol] 3.5 mg/dL Normal 2.6-4.7 [facility] Comment on above: Performed By: #### M G, RENAL, URIC #### [facility] [address] [place] [address] Dr. Demetra Costa Potassium [Moles/Vol] 4.7 mmol/L Normal 3.5-5.1 [facility] Comment on above: Performed By: #### M G, RENAL, URIC #### [facility] [address] [place] [address] Dr. Demetra Costa Sodium [Moles/Vol] 137 mmol/L Normal 136-145 [facility] Comment on above: Performed By: #### M G, RENAL, URIC #### [facility] [address] [place] [address] Dr. Demetra Costa Urea nitrogen [Mass/Vol] 29.0 mg/dL Critically high 7.0-18.0 [facility] Comment on above: Performed By: #### M G, RENAL, URIC #### [facility] [address] [address] [address] Demetra Costa URIC ACID SERUMon 05-28-2022 Urate [Mass/Vol] 5.1 mg/dL Normal 2.6-6.0 [facility] Comment on above: Performed By: #### M G, RENAL, URIC #### [facility] [address] [address] [address] Demetra Costa VITAMIN D 25 OHon 05-28-2022 VIT D 25-OH 29.1 ng/mL Normal [facility] Comment on above: Performed By: #### U PARESH, CMP #### [facility] [address] [address] [address] Demetra Costa VIT D RANGES SEE BELOW Normal [facility] Comment on above: Result Comment: <20 ng/mL Vit D deficient 20 - <30 ng/mL Vit D insufficient 30 - 100 ng/mL Vit D sufficient >100 ng/mL Potential Toxicity Performed By: #### U PARESH, CMP #### [facility] [address] [address] [address] Demetra Costa CNPNon 05-05-2022 CNPN Telephone (HEMASA) SD REHMAN ([id number]) 1950 F Date Time Provider Department 05/05/22 [...] Status:Closed by ALEXANDRA QUICK on 05/05/22 Normal [facility] CBC W Auto Differential pane l (Bld)on 05-02-2022 Basophils (Bld) [#/Vol] 0.12 10*3/uL High <0.11 [facility] Comment on above: Order Comment: Speci men Type: BLOOD SPECIMEN Ordering Facility: [facility] Address: [address] [address] Performed By: #### 5 7021-8 #### [facility] CLIA [id number] [address] [place] [address] 71380 Basophils/100 WBC (Bld) 0.9 % Normal [facility] Comment on above: Order Comment: Speci men Type: BLOOD SPECIMEN Ordering Facility: [facility] Address: [address] [place] [address] Performed By: #### 5 7021-8 #### [facility] CLIA [id number] [address] [place] [address] 26531 Differential cell count method Nom (Bld) Auto Normal [facility] Comment on above: Order Comment: Speci men Type: BLOOD SPECIMEN Ordering Facility: [facility] Address: [address] [place] [address] Performed By: #### 5 7021-8 #### [facility] CLIA [id number] [address] [place] [address] 35175 Eosinophils (Bld) [#/Vol] 0.27 10*3/uL Normal <0.46 [facility] Comment on above: Order Comment: Speci men Type: BLOOD SPECIMEN Ordering Facility: [facility] Address: [address] [address] Performed By: #### 5 7021-8 #### [facility] CLIA [id number] [address] [place] [address] 28911 Eosinophils/100 WBC (Bld) 2.0 % Normal [facility] Comment on above: Order Comment: Speci men Type: BLOOD SPECIMEN Ordering Facility: [facility] Address: [address] [place] [address] Performed By: #### 5 7021-8 #### [facility] CLIA [id number] [address] [place] [address] 37949 Erythrocyte distribution width (RBC) [Ratio] 13.2 % Normal 11.5-15.0 [facility] Comment on above: Order Comment: Speci men Type: BLOOD SPECIMEN Ordering Facility: [facility] Address: [address] [place] [address] Performed By: #### 5 7021-8 #### [facility] CLIA [id number] [address] [place] [address] 10895 Hematocrit (Bld) [Volume fraction] 38.6 % Normal 36.0-46.0 [facility] Comment on above: Order Comment: Speci men Type: BLOOD SPECIMEN Ordering Facility: [facility] Address: [address] [place] [address] Performed By: #### 5 7021-8 #### [facility] CLIA [id number] [address] [place] [address] 03593 Hemoglobin (Bld) [Mass/Vol] 12.4 g/dL Normal 11.5-15.5 [facility] Comment on above: Order Comment: Speci men Type: BLOOD SPECIMEN Ordering Facility: [facility] Address: [address] [place] [address] Performed By: #### 5 7021-8 #### [facility] CLIA [id number] [address] [place] [address] 89252 Immature granulocytes (Bld) [#/Vol] 0.09 10*3/uL Normal <0.10 [facility] Comment on above: Order Comment: Speci men Type: BLOOD SPECIMEN Ordering Facility: [facility] Address: [address] [place] [address] Performed By: #### 5 7021-8 #### [facility] CLIA [id number] [address] [place] [address] 41524 Immature granulocytes/100 WBC (Bld) 0.7 % Normal [facility] Comment on above: Order Comment: Speci men Type: BLOOD SPECIMEN Ordering Facility: [facility] Address: [address] [address] Performed By: #### 5 7021-8 #### [facility] CLIA [id number] [address] [place] [address] 89606 Lymphocytes (Bld) [#/Vol] 2.78 10*3/uL Normal 1.00-4.00 [facility] Comment on above: Order Comment: Speci men Type: BLOOD SPECIMEN Ordering Facility: [facility] Address: [address] [address] Performed By: #### 5 7021-8 #### [facility] CLIA [id number] [address] [place] [address] 63242 Lymphocytes/100 WBC (Bld) 20.1 % Normal [facility] Comment on above: Order Comment: Speci men Type: BLOOD SPECIMEN Ordering Facility: [facility] Address: [address] [address] Performed By: #### 5 7021-8 #### [facility] CLIA [id number] [address] [place] [address] 68196 MCH (RBC) [Entitic mass] 31.3 pg Normal 26.0-34.0 [facility] Comment on above: Order Comment: Speci men Type: BLOOD SPECIMEN Ordering Facility: [facility] Address: [address] [address] Performed By: #### 5 7021-8 #### [facility] CLIA [id number] [address] [place] [address] 13869 MCHC (RBC) [Mass/Vol] 32.1 g/dL Normal 30.5-36.0 [facility] Comment on above: Order Comment: Speci men Type: BLOOD SPECIMEN Ordering Facility: [facility] Address: [address] [address] Performed By: #### 5 7021-8 #### [facility] CLIA [id number] [address] [place] [address] 60472 MCV (RBC) [Entitic vol] 97.5 fL Normal 80.0-100.0 [facility] Comment on above: Order Comment: Speci men Type: BLOOD SPECIMEN Ordering Facility: [facility] Address: [address] [address] Performed By: #### 5 7021-8 #### [facility] CLIA [id number] [address] [place] [address] 28078 Monocytes (Bld) [#/Vol] 1.13 10*3/uL High <0.87 [facility] Comment on above: Order Comment: Speci men Type: BLOOD SPECIMEN Ordering Facility: [facility] Address: [address] [place] [address] Performed By: #### 5 7021-8 #### [facility] CLIA [id number] [address] [place] [address] 88672 Monocytes/100 WBC (Bld) 8.2 % Normal [facility] Comment on above: Order Comment: Speci men Type: BLOOD SPECIMEN Ordering Facility: [facility] Address: [address] [place] [address] Performed By: #### 5 7021-8 #### [facility] CLIA [id number] [address] [place] [address] 58318 Neutrophils (Bld) [#/Vol] 9.43 10*3/uL High 1.45-7.50 [facility] Comment on above: Order Comment: Speci men Type: BLOOD SPECIMEN Ordering Facility: [facility] Address: [address] [address] Performed By: #### 5 7021-8 #### [facility] CLIA [id number] [address] [place] [address] 15410 Neutrophils/100 WBC (Bld) 68.1 % Normal [facility] Comment on above: Order Comment: Speci men Type: BLOOD SPECIMEN Ordering Facility: [facility] Address: [address] [place] [address] Performed By: #### 5 7021-8 #### [facility] CLIA [id number] [address] [place] [address] 44247 Nucleated RBC (Bld) [#/Vol] 10*3/uL Normal <0.01 [facility] Comment on above: Order Comment: Speci men Type: BLOOD SPECIMEN Ordering Facility: [facility] Address: [address] [address] Performed By: #### 5 7021-8 #### [facility] CLIA [id number] [address] [place] [address] 40539 Nucleated RBC/100 WBC (Bld) [Ratio] 0.0 /100 WBC Normal [facility] Comment on above: Order Comment: Speci men Type: BLOOD SPECIMEN Ordering Facility: [facility] Address: [address] [address] Performed By: #### 5 7021-8 #### [facility] CLIA [id number] [address] [place] [address] 21588 Platelet mean volume (Bld) [Entitic vol] 8.6 fL Low 9.0-12.7 [facility] Comment on above: Order Comment: Speci men Type: BLOOD SPECIMEN Ordering Facility: [facility] Address: [address] [address] Performed By: #### 5 7021-8 #### [facility] CLIA [id number] [address] [place] [address] 59810 Platelets (Bld) [#/Vol] 416 10*3/uL High 150-400 [facility] Comment on above: Order Comment: Speci men Type: BLOOD SPECIMEN Ordering Facility: [facility] Address: [address] Performed By: #### 5 7021-8 #### [facility] CLIA [id number] [address] [place] [address] 71028 RBC (Bld) [#/Vol] 3.96 10*6/uL Normal 3.90-5.20 [facility] Comment on above: Order Comment: Speci men Type: BLOOD SPECIMEN Ordering Facility: [facility] Address: [address] [id number] Performed By: #### 5 7021-8 #### [facility] CLIA [id number] [address] [place] [address] 09572 WBC (Bld) [#/Vol] 13.82 10*3/uL High 3.70-11.00 [facility] Comment on above: Order Comment: Speci men Type: BLOOD SPECIMEN Ordering Facility: [facility] Address: [address] [address] Performed By: #### 5 7021-8 #### [facility] CLIA [id number] [address] [place] [address] 39564 CNOVSPon 05-02-2022 CNOVSP Visit (SP) Office (HEMAS[place]) SD REHMAN ([id number]) 1950 F Date Time Provider Department 05/02/22 2:30 PM DENNIS LOMAS During your visit today, we recorded the following information about you: Temperature Pulse Respiration Blood pressure 97.2 degrees 94/minute 16/minute 149/74 Weight Height 101.4 kg 1.575 m Dennis Lomas MD 05/10/2022 10:42 AM Signed NAME: Sd Rehman CLINIC NO.: [id number] DATE OF SERVICE: May 02, 2022 (Feliciano) Some elements in this clinic note that are critical to medical decision making have been carefully reviewed and included from a prior clinic note dated: February 28, 2022 (Feliciano) Referring Provider: Odell Jones Additional Clinicians involved in Sd Rehman's care: Patrick Odom, Olivia Fatima DIAGNOSIS: leukocytosis ASSESSMENT: 71 year old with [...] Known A (more content not included)... Normal [facility] CRP SerPl-mCncon 05-02-2022 CRP [Mass/Vol] 1.9 mg/dL High <0.9 [facility] Comment on above: Order Comment: Specantoinette dubois Type: BLOOD SPECIMEN Ordering Facility: [facility] Address: [address] [address] Performed By: #### 5 0190-8, 1987-, 2275- #### [facility] CLIA [id number] [address] [facility] Comprehensive metabolic 2000 panelon 05-02-2022 Albumin [Mass/Vol] 4.0 g/dL Normal 3.9-4.9 [facility] Comment on above: Order Comment: Tere dubois Type: BLOOD SPECIMEN Ordering Facility: [facility] Address: [address] Performed By: #### 2 532-0, 12755-9 #### [facility] CLIA [id number] [address] [place] [address] 65763 ALP [Catalytic activity/Vol] 117 U/L Normal 34-123 [facility] Comment on above: Order Comment: Tere dubois Type: BLOOD SPECIMEN Ordering Facility: [facility] Address: [address] Performed By: #### 2 532-0, 25402-0 #### [facility] CLIA [id number] [address] [place] [address] 37669 ALT [Catalytic activity/Vol] 9 U/L Normal 7-38 [facility] Comment on above: Order Comment: Speci men Type: BLOOD SPECIMEN Ordering Facility: [facility] Address: [address] [address] Performed By: #### 2 532-0, 82697-1 #### [facility] CLIA [id number] [address] [place] [address] 98176 Anion gap [Moles/Vol] 12 mmol/L Normal 9-18 [facility] Comment on above: Order Comment: Speci men Type: BLOOD SPECIMEN Ordering Facility: [facility] Address: [address] [address] Performed By: #### 2 532-0, #### [facility] CLIA [id number] [address] [place] [address] 33252 AST [Catalytic activity/Vol] 12 U/L Low 13-35 [facility] Comment on above: Order Comment: Speci men Type: BLOOD SPECIMEN Ordering Facility: [facility] Address: [address] [address] Performed By: #### 2 532-0, #### [facility] CLIA [id number] [address] [place] [address] 14714 Bilirubin [Mass/Vol] 0.3 mg/dL Normal 0.2-1.3 [facility] Comment on above: Order Comment: Speci men Type: BLOOD SPECIMEN Ordering Facility: [facility] Address: [address] [address] Performed By: #### 2 532-0, 98237-3 #### [facility] CLIA [id number] [address] [place] [address] 02570 Calcium [Mass/Vol] 10.1 mg/dL Normal 8.5-10.2 [facility] Comment on above: Order Comment: Speci men Type: BLOOD SPECIMEN Ordering Facility: [facility] Address: [address] [address] Performed By: #### 2 532-0, 85019-7 #### [facility] CLIA [id number] [address] [place] [address] 63581 Chloride [Moles/Vol] 104 mmol/L Normal 97-105 [facility] Comment on above: Order Comment: Speci men Type: BLOOD SPECIMEN Ordering Facility: [facility] Address: [address] [address] Performed By: #### 2 532-0, #### [facility] CLIA [id number] [address] [place] [address] 85218 CO2 [Moles/Vol] 25 mmol/L Normal 22-30 [facility] Comment on above: Order Comment: Speci men Type: BLOOD SPECIMEN Ordering Facility: [facility] Address: [address] [place] [address] Performed By: #### 2 532-0, 74230-1 #### [facility] CLIA [id number] [address] [place] [address] 26576 Creatinine [Mass/Vol] 1.78 mg/dL High 0.58-0.96 [facility] Comment on above: Order Comment: Speci men Type: BLOOD SPECIMEN Ordering Facility: [facility] Address: [address] [place] [address] Performed By: #### 2 532-0, 40034-1 #### [facility] CLIA [id number] [address] [place] [address] 22829 ESTIMATED GLOMERULAR FILTRATION RATE 30 mL/min/1.73m??? Low >=60 [facility] Comment on above: Order Comment: Speci men Type: BLOOD SPECIMEN Ordering Facility: [facility] Address: [address] [place] [address] Result Comment: Linda mated Glomerular Filtration Rate [...] actual GFR. Performed By: #### 2 532-0, 31766-5 #### [facility] CLIA [id number] [address] [place] [address] 42588 Glucose [Mass/Vol] 97 mg/dL Normal 74-99 [facility] Comment on above: Order Comment: Tere dubois Type: BLOOD SPECIMEN Ordering Facility: [facility] Address: [address] [id number] Result Comment: The [place] [employer] (ADA) provides guidance for cutoff [...] Standards of Medical Care in Diabetes 2016, [place] [employer]. Diabetes Care. 2016.39(Suppl 1). Performed By: #### 2 532-0, 54962-4 #### [facility] CLIA [id number] [address] [place] [address] 28903 Potassium [Moles/Vol] 4.4 mmol/L Normal 3.7-5.1 [facility] Comment on above: Order Comment: Tere dubois Type: BLOOD SPECIMEN Ordering Facility: [facility] Address: [address] [place] [address] Performed By: #### 2 532-0, 11879-1 #### [facility] CLIA [id number] [address] [place] [address] 14987 Protein [Mass/Vol] 7.1 g/dL Normal 6.3-8.0 [facility] Comment on above: Order Comment: Tere dubois Type: BLOOD SPECIMEN Ordering Facility: [facility] Address: [address] Performed By: #### 2 532-0, 36672-1 #### [facility] CLIA [id number] [address] [place] [address] 20022 Sodium [Moles/Vol] 141 mmol/L Normal 136-144 [facility] Comment on above: Order Comment: Speci men Type: BLOOD SPECIMEN Ordering Facility: [facility] Address: [address] [address] Performed By: #### 2 532-0, 69200-7 #### [facility] CLIA [id number] [address] [place] [address] 34472 Urea nitrogen [Mass/Vol] 33 mg/dL High 7-21 [facility] Comment on above: Order Comment: Speci men Type: BLOOD SPECIMEN Ordering Facility: [facility] Address: [address] [address] Performed By: #### 2 532-0, 68874-2 #### [facility] CLIA [id number] [address] [place] [address] 91933 ESR Westergren method (Bld) [Velocity]on 05-02-2022 ESR (Bld) [Velocity] 79 mm/h High 0-20 [facility] Comment on above: Order Comment: Speci men Type: BLOOD SPECIMENOrdering Facility: [facility] Address: [address] [address] Performed By: #### 4 537-7 ####[facility] [id number] [facility] [id number] [id number] [place] Ferritin SerPl-mCncon 2022 Ferritin [Mass/Vol] 113.0 ng/mL Normal 14.7-205.1 [facility] Comment on above: Order Comment: Speci men Type: BLOOD SPECIMEN Ordering Facility: [facility] Address: [address] [address] Performed By: #### 5 0190-8, 2275-06 #### [facility] CLIA [id number] [address] [place] [address] [place] Folate SerPl-mCncon 05-02-19 Folate [Mass/Vol] 3.4 ng/mL Low >4.7 [facility] Comment on above: Order Comment: Speci men Type: BLOOD SPECIMEN Ordering Facility: [facility] Address: [address] [address] Performed By: #### 2 132-9, 22848 #### [facility] CLIA [id number] [address] [place] [address] [place] Iron and Iron binding capaci ty panelon 05-02-2022 Iron [Mass/Vol] 52 ug/dL Normal 41-186 [facility] Comment on above: Order Comment: Speci men Type: BLOOD SPECIMEN Ordering Facility: [facility] Address: [address] [address] Performed By: #### 5 0190-8, 2275-06 #### [facility] CLIA [id number] [address] [place] [address] [place] Iron binding capacity [Mass/Vol] 310 ug/dL Normal 232-386 [facility] Comment on above: Order Comment: Speci men Type: BLOOD SPECIMEN Ordering Facility: [facility] Address: [address] Performed By: #### 5 0190-8, 2275-06 #### [facility] CLIA [id number] [address] [place], [place] [address] [place] Iron/TIBC [Molar ratio] 16.8 % Normal 15.0-57.0 [facility] Comment on above: Order Comment: Speci men Type: BLOOD SPECIMEN Ordering Facility: [facility] Address: [address] Performed By: #### 5 0190-8, 6-4 #### [facility] CLIA [id number] [address] [place] [address] [place] LDH SerPl-cCncon 05-02-2022 LDH [Catalytic activity/Vol] 177 U/L Normal 135-214 [facility] Comment on above: Order Comment: Speci men Type: BLOOD SPECIMEN Ordering Facility: [facility] Address: [address] [place] [address] Performed By: #### 2 532-0, 92029-5 #### [facility] CLIA [id number] [address] [place] [address] Vit B12 SerPl-mCncon 023 Cobalamin (Vitamin B12) [Mass/Vol] 510 pg/mL Normal 232-1245 [facility] Comment on above: Order Comment: Speci men Type: BLOOD SPECIMEN Ordering Facility: [facility] Address: [address] [place] [address] Performed By: #### 2 132-9, 2284-8 #### 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 [employer] [place] Whole body Views W In-111 tagged WBC IVOrdered By: Teresa Steve on 03-11-2022 [employer] Work Phone: NUC BONE MARROW LIMITED AREA [...] knee arthroplasty. Normal [facility] [place] Whole body Views W In-111 tagged WBC Thea 03-10-2022 Radiology Study observation (narrative) [facility] CNOVSPon 02-28-2022 CNOVSP Visit (SP) Office (HEMASA) SD REHMAN ([id number]) 1950 F Date Time Provider Department 02/28/22 3:00 PM DENNIS LOMAS During your visit today, we recorded the following information about you: Temperature Pulse Respiration Blood pressure 97.1 degrees 85/minute 16/minute 147/72 Weight Height 100.7 kg 1.575 m Dennis Lomas MD 03/11/2022 8:25 AM Signed NAME: Sd Rehman CLINIC NO.: [id number] DATE OF SERVICE: February 28, 2022 (Feliciano) [...] 1 T (more content not included)... Normal [facility] [facility] LEG BILon 022 US LYNDA [...] by: TERESA AZUL Date: 2022-02-27 14:25 Normal [facility] LARGE JOINT/BURSA INJECTION AND/OR ASPIRATION: Naomie kneesofía 02-20-2022 Radiology Study observation (narrative) [facility] LARGE JOINT/BURSA INJECTION AND/OR ASPIRATION: Naomie kneesofía 02-19-2022 Navin Clark MD 02/20/2022 2:33 PM [...] complications The patient was prepped with Chloraprep. [facility] PTH INTACTon 02-18-2022 PTH, Intact 55 pg/mL Normal 15-65 [facility] Comment on above: Performed By: #### M G, RENAL, URIC #### [facility] [address] [place] [address] Dr. Demetra Costa HEMOGRAM AND PLATELon 2021 Hematocrit (Bld) [Volume fraction] 41.8 % Normal 36.0-48.0 [facility] Comment on above: Performed By: #### H H #### [facility] [address] [place] [address] Dr. Demetra Costa Hemoglobin (Bld) [Mass/Vol] 14.0 g/dL Normal 12.0-16.0 [facility] Comment on above: Performed By: #### H H #### [facility] [address] [place] [address] Dr. Demetra Costa MCH (RBC) [Entitic mass] 33.7 pg Normal 26.7-34.0 [facility] Comment on above: Performed By: #### H H #### [facility] [address] [place] [address] Dr. Demetra Costa MCHC (RBC) [Mass/Vol] 33.5 g/dL Normal 29.9-35.2 [facility] Comment on above: Performed By: #### H H #### [facility] [address] [place] [address] Dr. Demetra Costa MCV (RBC) [Entitic vol] 100.5 fL Critically high 81.0-99.0 [facility] Comment on above: Performed By: #### H H #### [facility] [address] [place] [address] Dr. Demetra Costa PLT 397 103/ul Normal 150-450 [facility] Comment on above: Performed By: #### H H #### [facility] [address] [address] [address] Demetra Costa RBC 4.16 106/ul Critically low 4.20-5.40 [facility] Comment on above: Performed By: #### H H #### [facility] [address] [address] [address] Demetra Costa WBC 13.6 103/ul Critically high 4.0-11.0 [facility] Comment on above: Performed By: #### H H #### [facility] [address] [place] [address] Dr. Demetra Costa MAGNESIUMon 02-17-2022 Magnesium [Mass/Vol] 2.0 mg/dL Normal 1.8-2.4 [facility] Comment on above: Performed By: #### M G, RENAL, URIC #### [facility] [address] [place] [address] Dr. Demetra Costa RENAL FUNCTION PANELon 02-17 Albumin [Mass/Vol] 3.4 g/dL Normal 3.4-5.0 The [facility] Comment on above: Performed By: #### M G, RENAL, URIC #### [facility] [address] [place] [address] Dr. Demetra Costa Calcium [Mass/Vol] 10.1 mg/dL Normal 8.5-10.1 The [facility] Comment on above: Performed By: #### M G, RENAL, URIC #### [facility] [address] [address] [address] Demetra Costa Chloride [Moles/Vol] 99 mmol/L Normal 98-107 [facility] Comment on above: Performed By: #### M G, RENAL, URIC #### [facility] [address] [place] [address] Dr. Demetra Costa CO2 [Moles/Vol] 24.9 mmol/L Normal 21.0-32.0 [facility] Comment on above: Performed By: #### M G, RENAL, URIC #### [facility] [address] [address] [address] Demetra Costa Creatinine [Mass/Vol] 1.79 mg/dL Critically high 0.55-1.02 [facility] Comment on above: Performed By: #### M G, RENAL, URIC #### [facility] [address] [place] [address] Dr. Demetra Costa EGFR-AF UZBEK 34 mL/min/1.73m2 Critically low >=60 [facility] Comment on above: Performed By: #### M G, RENAL, URIC #### [facility] [address] [place] [address] Dr. Demetra Costa EGFR-NON AF UZBEK 28 mL/min/1.73m2 Critically low >=60 [facility] Comment on above: Performed By: #### M G, RENAL, URIC #### [facility] [address] [place] [address] Dr. Demetra Costa Glucose [Mass/Vol] 127 mg/dL Critically high 74-106 [facility] Comment on above: Performed By: #### M G, RENAL, URIC #### [facility] [address] [place] [address] Dr. Demetra Costa Phosphate [Mass/Vol] 3.6 mg/dL Normal 2.6-4.7 [facility] Comment on above: Performed By: #### M G, RENAL, URIC #### [facility] [address] [place] [address] Dr. Demetra Costa Potassium [Moles/Vol] 4.1 mmol/L Normal 3.5-5.1 [facility] Comment on above: Performed By: #### M G, RENAL, URIC #### [facility] [address] [place] [address] Dr. Demetra Costa Sodium [Moles/Vol] 137 mmol/L Normal 136-145 [facility] Comment on above: Performed By: #### M G, RENAL, URIC #### [facility] [address] [place] [address] Dr. Demetra Costa Urea nitrogen [Mass/Vol] 41.0 mg/dL Critically high 7.0-18.0 [facility] Comment on above: Performed By: #### M G, RENAL, URIC #### [facility] [address] [place] [address] Dr. Demetra Costa URIC ACID SERUMon 02-17-2022 Urate [Mass/Vol] 7.9 mg/dL Critically high 2.6-6.0 [facility] Comment on above: Performed By: #### M G, RENAL, URIC #### [facility] [address] [address] [address] Demetra Costa VITAMIN D 25 OHon 02-17-2022 VIT D 25-OH 33.4 ng/mL Normal [facility] Comment on above: Performed By: #### M G, RENAL, URIC #### [facility] [address] [place] [address] Dr. Demetra Costa VIT D RANGES SEE BELOW Normal [facility] Comment on above: Result Comment: <20 ng/mL Vit D deficient 20 - <30 ng/mL Vit D insufficient 30 - 100 ng/mL Vit D sufficient >100 ng/mL Potential Toxicity Performed By: #### M G, RENAL, URIC #### [facility] [address] [place] [address] Dr. Demetra Costa C REACTIVE PROTEINon 022 CRP [Mass/Vol] 12.3 mg/L High 0 - 10.0 MG/L [facility] Interpretation and review of laboratory results Abnormal [facility] SEDIMENTATION RATE, AUTOMATE Don 01-02-2022 ESR (Bld) [Velocity] 44 mm/h [facility] Interpretation and review of laboratory results Abnormal [facility] Coding Summaryon 12-27-2021 Coding Summary HTMLBase 64 ZyvkbkvpQGx0sYz+PGhlYW Q+GM8TKPXfR64bqDPukM6G U2aJID5YYUCTKOLOCH5IJQ 2buDL4WZglH8PfnwJj IogecYQzML90IQh1GEB3iT guHAvzyH0zyLUcX5e3KtBy MQ14zY65KYduGAFsLkT3En ZpbjsgbWFy J1jkHdHgsHQxLpo+PHRhYm xlIHdpZHRoPScxMDAlJyBz xDbmMW3sDp3sTIDjNCBwqY xhcHNlOiBj g9pnKAEoBMynRU2lyPwoM0 VpbHE2RRUxb9l6Hb99gFJ+ PEQlFFO7aDvlFTenq627Bo Hzb6qtGJC7 eJOpFOoxXXX2K59ua8E8ZC LsGROfPFS6rMT2hN6mxUjs mhifX4ClqFUeKvY5WSF5fO DhcN7ciMpq mrltqJ7ySiw+K81JKU7GMJ ZZCL3JMpe4E8MdIrxggIO+ IJ62NZLcEJ89gKWmsPUlo5 ouuWb9VtNz WIJtKGE4zHtoNHcob7MxSA CzI63cjFDfp6M9YWOjiQkv nDMpBwSpfPZ6pU9dKCopmm dif2vrausv Jxsht2uxqb80lZ39A99cFN jbCBCkHUE0YOInKVRsxWhj fs0ydH1oYf0+XPjkb3wny8 vpdLb4FrBw NMDtgeHrrGvdJQU6m5FqQn 82C8FyqIodv4GsMgs8nu19 wGFmo5Z1iMJ1KNubUCDgpH 1zQAgzJcD5 VPHrNnJlfY41pGIvBGfyGu 3lbLsckXwbNE4nSEGhcedc QQZhcE0wKEZwmKZzaZfoXX 4wNTBpbjtm s278ZnLbXNL8OZJzjADqE3 UxbY2jRkSbDFMiZHEzN1Sg bZBeSYtaW664MQvlHcO2CJ YqotDpQ0St XVJhkApyMaH4k5D0Jf0Jz9 QpwyuyURY0DFyzFXNcMoL1 AmMjFqT6C5BoUld3SKNfpV icUO6bF0Jr QYEjcadfclmwjWE4RJBhTU GfrM56tSWbZHqeMu9zc5M1 u045AESaJQCfqJ23Qf7asR ogMTBwdCBU pN8capirn8ouscucQlPpCX UfDRy6QRz5QHGzhLdcXfOq EQU0EhM9JXN6kQGqkF5yzB cotjpadL7b Oyc+E00rvD2aEUG0NCE3du boUFPvdpAvSE85PZ86C2Zo PjwvdGFibGU+PGRpdiBzdH ohTM0jEjWs j2nij3ArDBevN4TwINIzFA dhShk6SCUtOBL4zIH7yP1a LBRuYQciz7Q7lAI9C7Yprn Okbe7zv6vy QRLyFRjeW43ltJKqo3R9JG TcvEM5PVQkwUsbNxOmpD82 Oyc+TGTmpNcov2HrOptbm9 qga4fsuMa8 KdXeTEKaexSrbBhoTAF0y2 EzMi08D59oKIdtZMEsXWBs PMZbSJTvrFqrzb9vjP6kWi 8+PGNvbCB3 xIL8sQ6sTPEdBpN9WFqnP2 34JoGoiUApPdlvj6tgj0yo uJh5GgEqYKIbmdKnvGhsGO H1o0JoJq88 E77gRUmvVWEeDUKlZOEvED QrbZsfet4szA3oEi0+PC9j g0fnqo71tP30hYZ+PHRkIH R6tLhuOJke HUMeqW9wQMgkXcL2QJHkJt OezX31gQWxRZevWq6fzHgm gMjlRO4eAVFopaodt734Re Xxz2lyNDPv hQYpHIpuWVO6T58mg9J2QR LdQOJoHLG8wXK7xB0jwXhr bjogbGVmdDsgdmVydGljYW bvNHpxD349 IHRvcDsnPlBhdGllbnQgTm NtSOi8Z3PbMzs9YCTceUbl QR7ygNBqJHxlLt5hmZpjjQ udNR5rJIPj njkbg553ViDnx4loPBEnkM LvGZzpIWO7K60fb6D0MKRd PXUiPZM7xSV2wT9efAszts ogbGVmdDsg pmHdeQssCAmmDFbsF088EF RvcDsnPkJpcnRoIERhdGU6 XH79HF22jQAkf4I4dRQ9E8 BhZGRpbmct nuqblJK5PCOhKFJkiT70Fa 9ntGkfLw4zWTQnKZD6VYWc pGAdP6SucC0uPaYeGPHxUR SgA4ZsgVOo ZTkkZ289MRqmJnS2FIHhzc MaS6LmTDPgrWkuBwQ6p8G4 Uj4AL3U7WW05GX18uTRni0 K7vQH5P2Ck RJVxpfxtgccfkFR7OEVgUE VopC41Yx1xkTshLr5sTJAu KPB0OMBnjQRqD5VdiM8uYx AjMDAwMDAw B2QyqLRsCEaaF110ADbuSt O1ERVxkgXmM5FuLDDktQvn MdL0r5O4Ge5FDWj2JY99JZ 22tTYot7Z1 sBY3B4SwYOAbqhjkecifsA I4IYTkNDXrxC92Ta3ghVdk Ws2uEZKzHQE0ZNNmuHWmS4 PuzE6uBoXb IGOeXEXvQ9RctBLxDPjuA2 48HXqePuS0LEBmanXqC9Do TTHeiGijUlH0y9K5Cp8TLP RjVY01ISB8 fDU9RE96YV93S4RyZpofvC FibGU+PHRhYmxlIHdpZHRo VKloGLUkGsDniXhgJH8hYc 9yZGVyLWNv sYhebQPeOtYuz2ggZSSkLG lhMO2ktLhfQ3JaaAS6NRRy b4f5Mr30A30dL4WcaZQ+PG YmiXL0yCT1 kG8nUqJsRdD4WKcgZ460Ij YrfHJpMrvtv4bjq7xzqUd5 NlM9LKXtshEfmLdaEEC5e1 QlDy85E29s IHdpZHRoPSIxNSUiIHZhbG bopw3rbB3xYw7+PGNvbCB3 lCQ1rR1pRcQyMjZ8FTswF3 49InRvcCIv Jkgnp2hhr7ckpHq1UgHmCQ DckhGuyFfkDDX2q1MwQz15 H8JgdCdel0YeEjg1vy90uV Uiz0L7oKG2 O7QnXWUsskqpeYQuhUzkAF 4oIPBsxdyqEUSplT9vNGKt X4g7JzJlSpE7FQcfO3Kuuc R2DYCxnEQe VMkeTMI8V29re2A0DGNxWD RpEIF2uWL4sT9ojShufayv bGVmdDsgdmVydGljYWwtYW reH234MVZn mQgsCVPmeB0gCMIhvAHiuH unJQ1jMPUighuiCkpEZYDU RVIsIEJBUkJBUkEgRzwvdG Q+PHRkIHN0 cZoxCQvdEBAzaX0mBRNyD4 i5PgLpTrQ7BNovF9VcYKQh lboeKd40sV0qJiYvVsY9BB kbA6NldbS4 FOPnsOUkPGhjMUY5B81we8 C0LFAiAGRcONJ8iRI3gR9u bGlnbjogbGVmdDsgdmVydG ljYWwtYWxp C057QWMcdGzcDvS5HfC5Pt E0FOI9D7NeElw6ZSKjbEyt HW9ggXXxEZcjTj2qlNelxR ywFA1gQLRw lftvTMOehX5oLQMvzRGsxP idRB9dQLDxfgrgb781EaLh NJI5INMuuJKiZ1NziT7vAe AjMDAwMDAw V0KrnAUsGUhaA498HGspQg A9WWIwhwJeS1TqKVReqSfx EdZ7a9E2Ko18OHHQOWQgnq wvdGQ+PHRk FDK6xNnbNKarSYIlgG6qSW DbR6e0BtQnEkX0AFtwX8Gc GMPulzzySv46jT1qWgSkWz I1DYauF3Bq utJ6SFFziUTzKUwjQAE5I6 0yc6D6KYDoAYPbLOG4jOT7 oT6ahXhspyzghBGjcDzdck VydGljYWwt VQkhW464ZDSknPjdDrGQJZ FMRTwvdGQ+LUOkUAY4iQxy YVfhJNVmqD7xTPGqI0w7Ml EeNqF3MQjw T6ImIJSqmhmwRf24cX4rNf BzXpH4CHsgA5AolfF4ANDo sVTyXUitYOH0S29bd5Z2FS MwMDAwMDA7 rHT0vI4yqFtdvxveyJStqX nihpDqdQqbRWpbNIrnE379 YEQsbIjbEi5WFR91YD48T1 RyPjwvdGFi bGU+PHRhYmxlIHdpZHRoPS vsYPTrKaBkgCxmQA1gBs6x ZGVyLWNvbGxhcHNlOiBjb2 xsYXBzZTsg KU6djKdaJ2EvjWW3YDRsx0 v9Nj96S03tG1GqwLX+PGNv wWF5hME1vP1nPqAhUjG4DI rgW788SrGv nADoPnkuk6tik4phpVe1Pf DwXIUsbrTxmYazCQH2g6Fi Zw15R36qSPvuNSOiIDXkVY UiIHZhbGln gp3vvA2eHn4+WDLleEM2sY S7rY6eDsCgJqA4VTcoE286 NxGlzANuNfbdQ61sU6NliE A+PHRyPjx0 AZVyrQwzXC6zrZKeCHdzMc 9vTMJ7VlXwTyPdDYslY3Bw MAIojktdifntaYY2BXUrPI CjbM49Yi6t dJecIs8vUUItARY6MHXczS QpP5WgiW7hMaPxWMAxRJMl C8WrgXIaPNsnH711FMllRw W6EVBwnjTa Y1EjKWZsoYixWcI5l0X3Ex 2OlIwlxZNtRE0zSySaRIr6 A3KuLda5AZZckDuyMJ4scJ IfPEvpZc1q wOsthDinFF4uNEEzvqsuu0 05RrNom7nyUZGtyRXpVAow ZUO7A23eo5O3UCPxDLSuFL B8vMY2pM1s bGlnbjogbGVmdDsgdmVydG gaRPnmPXxeT355RCPpvBsv RbLEMyh5E3OwYuv0MPAspW unQW6zmJIu OPkzBu8ocAvwfWgtSE4lTX Ppasjem316SnVow9eqVIUv xYBmATenQKG4V53ar1U8XC MwMDAwMDA7 hTN3nE8mcBzikkfgoOPzsR mhlkUgdCezOZzuXDnsI878 BHFeiZqoNz8IOof7X2TqPb y7NMWukBpx JS9bsCDqKLcgHp6hrMbdzS pcNF5iUECjkbvhl095AuDf i1lwIAZyfWHxIIaqIQK4N0 8kt5D1RYZr QICwGIW2fAV2xX7miHgobv ogbGVmdDsgdmVydGljYWwt OZuiS614QMWqtCqjBpUsoN VyOjwvdGQ+ BX71ey16Y6HgLdzvGwr5EI AfKWX0iUU2gO3zLMKyADpb r1T0kDQ0Y5MihhGpia7wm9 xsYXBzZTog Y29 (more content not included)... [facility] Coding Summary HTMLBase 64 EpdkjzslYIt3nTi+PGhlYW Q+BN6JFFHpL90qiBXnvM3I E3xOSR0JYZQVVSWRVR5JLN 2ugOG7BDmvP3GdspJm WdjhaVJePH77QIi4GNT2iA ywTHnntH8qtPIbG5t9SpWx HF57vT80ZEqhSIJtPmD2Fz ZpbjsgbWFy I9hpSfPhxBVuAna+PHRhYm xlIHdpZHRoPScxMDAlJyBz eVkyZD7lLb3bTTGfZITqzR xhcHNlOiBj k7axYUVtTHhcGG2fcClxG4 ZizSL0KPNmf4w0Uj26gRA+ KXZsZLZ0eAplEBnnk233Ni Zwm4ggJKU2 fRBpEBdiHCP0T35vh9K6IU LmMVDuCNB5fQM5sG7seJwj dafvV7IimGOwDmE8IPW2lZ UsfU8dzDaw iodzaU2rJlz+N04UQR2HZZ TLDM5TQey0D1PkFvanlJZ+ ZP25BGUuQH45bYRriTKwb8 lqyEv6RvXv SFVdPPG5wAkiCOdln9BrZN LhB32qcOGam0U4EDRuvZvv mTIkGrYaoIA6vM5nRWalxa sgl0yrggik Agyyr1loqv97vH29Z03xTV zcHOVfWPS4JABgSNNmjZfx qn3wgN5bOa1+TNwvd5yli4 bbcPq0HpTa FSZqtnLpnBccOLR5h3PiDv 23B0CcmPgcj9SmWvs7jx58 rZPrr1J4mXI1EVppKXStsK 4wONukHfK3 OROwRbZjyR29jEMxTPoyRf 5btKgtiRxgTW5fPYGgrdxf GPXulY3hDKSnaONeeFqoYE 4wNTBpbjtm t352ByWyPEY6HAYczLKfJ9 BrqA9yLgLmKFKuVMVgE5Ye kKLxJFtyH165VMaaCoI9NR QqveMjT2Td FHIkrVfhJpP5k1E5Nw2Zy8 CepigpTUX2WPlsXFLjPsO1 PhVnMfW9W3VzTdx5TQIsrY clCW4nN7Cw GKGnwrslscamqKA5EFSzYO QtfC79yOReGDyqWs3jh2G5 e390KEOpRRGunP91As1xvW ogMTBwdCBU lW2yvfjex0gghdrtXyKpTG GvGCu1WIf5CBGibWzvHfLj XOB7QyF6MNS9vDKffV7gbA asosxgcK3v Oyc+T31kfU0cMOV1CZG4dx uxQNSiitFdMI16CP64T5Ff PjwvdGFibGU+PGRpdiBzdH hsRF9nReKy o0axy1NzMYbrI5JeCWEhBA mpQtj0THRdBOD8kPB7gC8v MVWhFOpcf1X1iWQ9Y5Lsmq Ecdd1of5pw PGWrIEurC15ydKSha7N3BU KotDX0MYXeyQmvUpGwsI36 Oyc+SNNzhUhyu3SkNvgyl9 mow1latEx5 FlQpSMCgygBmvRrwMYW5c5 YxSy11X83jEUhrRYVzMUHd PGXkWABrhCkdvn6rlD5eZb 8+PGNvbCB3 dKC8bS7cZSOoUcY3ORapB6 95AeZvqSKsPmocy5xrn6lk wCq3YpKxVSBzmzTwcUzrNU A5s5NvBg96 L39gFHpkTONwIGZkKQUtYA ZowWcinu2reQ1uJy8+PC9j u1wzbk82nI33cOT+PHRkIH Z1wSilPZaj UTIzhF4jLNpaBsC2BFKkUt YztA63dBKlPHgdXb8vtRrh wHlcOT8vQRKreaxdl090Ul Sao1bhVDVe mMHuXXwbMCR7V10gr7B1QL HcWTVjMZX0nUE7nD3kmTmw bjogbGVmdDsgdmVydGljYW ceDTsjH542 IHRvcDsnPlBhdGllbnQgTm AlTCp7K4HoZdm0KEXjxMxd TS1hpENuVLehEf8ecLlaeM mzOS9bBWRt aisrn331XyDst7uvWBHiyA IzCQonTGY2M82iw5J2ARPg KGHpCMR2uHJ4eI8idRlcvm ogbGVmdDsg miPspRpbQSlwRSosQ447WO RvcDsnPkJpcnRoIERhdGU6 HY41TN96eTLqa1B4aWP7J7 BhZGRpbmct gymbvEK7AUAnYZOgoA70Bp 6gjTxlEs2bMDLbUNZ7JOHh jNIeO1SmtJ5yUkOvXYSrLW XuD2LraYGj RFwnI704MXbvVsY2EZFugd ZsM4VbSCCxvXznPnS9o5W7 Da4VM1E3GW43FO91eZSxe9 J9xHN9K1Be BVBrbwcqbzxxyLT0RYEeVG CjsG74Ww6bdGazCw4yIXLb DRC1OOSriHRaJ5TvuG8hGg AjMDAwMDAw W8YivFJyDMdhX651ZZrcTc B9VYIzkoDrU5TtEGCieMfa HxM9u1O5Ob9XGHn8EI68TS 61pQTey8F0 qKP9Y6OaQIHiciaewqcclJ V4EQHiICNmbG43Jd6vhGbi Wm4rMZUmWAT2KDFemTWuW3 DnuC3uEhNf CXYvOYNpA6HafXAtPUmjR4 82VIbsQjR1CHYlcjYhN2Gm XWYkgUywCgV4a9N1Hq6BAE LpDD03VRE8 wRD7RZ99SN43A2McOfgvqE FibGU+PHRhYmxlIHdpZHRo PSvjJZTvJrWzvZfsEF7fYk 9yZGVyLWNv yBkusMNfYeDxt4vvGSQtAJ skLS0aiYmrB2AjeXE0HKFb m1x3Zw31X24kO0RnnJD+PG VmzQH8cEC2 hD4uTzAzDmX0TDnfQ027Ak FaxJBzZkukp5qdv2kgaOz7 EuL9NVNproGvcEyjZIS4a5 FcXa96U94y IHdpZHRoPSIxNSUiIHZhbG sljd1acH4uGz5+PGNvbCB3 gSW3jQ3qOmZxGrT2RVorR8 49InRvcCIv Fupbz1shp9rhhCr7MeDbGB IksvOkzFmlOJR0m5WnFh20 Z4CtjHcng3LbGue6px27uH Dac3Z8tBU9 K9YmKBRviuqisOJmuKtqHN 0fJAGwjjhnCFOgyX4vWZRj T4y2IsWcNcQ3EVrpZ0Oenx K2TIPwvQPs QIgbDOV5L32sq6Y9BFAxSZ YaQUU3wRO4yI5taDgajfml bGVmdDsgdmVydGljYWwtYW jlI658SFGj aYrkYOFawX0mFVLcdNWgyJ csFC2cIDDvbeggVrlXZNMA RVIsIEJBUkJBUkEgRzwvdG Q+PHRkIHN0 jMymMNjdDKSxaT4wHVDcA8 x1OpKdBrA6HTzjX9KbVLHs jmugOn62eL3lWvUdTeE9QB xcF6FedkP5 HMLozPEmQSgzUPN7V84nm4 X3CGNhHXPaHXY8oDA8fE2a bGlnbjogbGVmdDsgdmVydG ljYWwtYWxp O235VDDhyLmnSpV6ByN5Cy Z2LCR5Z2TiJhu4QLCygWea XD2hzYJjQNodAg0eyZenwE ttKU9vZAJu wmjvUPVyoH7cOWOzkTWvvY txML9bOCVxdpvcy217DkVh GNY7CHZyhAGjM3GeyK8mXp AjMDAwMDAw A6QjtJIhCYptS854YGdeAc K7UFZrhnNqD6UwJDTcoAbq JmT5w5M0Sf21HLUOXXPstt wvdGQ+PHRk SMD4qZzyWAcdZVHzuX1pFA BuF7f3ZoPxRsV3IAqhL2Yl CPTcqiccGn32fA0tQfKvNk N4ZAycU6Hb pjP8GRWzcBQnYDbxJCI4U0 5qj4H1JLZiWCCyEQM4pQI9 bB5ftKnqcidboRHtpWxidb VydGljYWwt AQjaT512WFVseIjjRkNYJF FMRTwvdGQ+CWOkJHI1hXaj GQeaRIKimY2eXIAtR4k9Ve ZwZoY4JHgg V8XiXCNymbtbUb95oG1yZr FyPxA0QVfaO4OupwR1OBNk dLVmUOgaREY5G30rt4G1HY MwMDAwMDA7 kFH2pA9kvDjszqhrnPEitW sfmkOpsRbgEIphBBoiG715 FOZvdRtmRsYyNHVmYS6mrR wvdGQ+PC90 fq13R9FlXloxTif7JZOhKF W1sSH6sF2kQIYmRGeol4I5 xQZ3J8WbokCnle2cb9gcYX EwBDvoF95g hNGeg9O9KJHydVA9MEYdpT xlRiXowD85Znk+PGNvbGdy o2RoYzqho6otp7zfuRb1Ek MwJSIgdmFs dPzuPJJ1u0FoCl81J53uQE dpZHRoPSIzMCUiIHZhbGln ht3gyM8jAf5+KJEhsMW8wF V6kH3yZfAx BpP6UKuzP567McUooVWuXp nen4zus1lhwFu0FfDeWUSn aaRspChmFIP2w6VfZv66N7 MklNwec2Ro Lnb3yc31nPYgx5W8qEK1M7 PsQAGpthomhHLmrYfwIM3l RHNfpvjyMSGaiC7cNSQvM2 e6OvUvRaZ5 YCveF0YlheO7ELVbbKTdCG IvhVVWoD4iwbupy8fxdawl JkRmSIDmCCl7EZg4QAUjbL duOiBsZWZ0 FxE9BMG5vUMjgM0jhRpkja ugoX1sGmh+CVv5s1kdpJDa FX1xtRK7LO50BL00zYIfi8 B7uLV2L3Hp AHTtruzkxndweSM8ULJrKB FuzU31Ug1haGgdYc4hOGNq ONS1JCBzoSRoJ2JfyL2jXe AjMDAwMDAw S5SnnINlBYmrO161CFlmJr L2AXNtuoFjF1UxALXfqMhj CzE6l2F4Ls6CYF77BE19NU 15fDBqa1H9 dTS1V8NeEMObbfjwaonnjZ J4PYRiQPEhuK98Ij2oeFfz Gw3rVJAjMZO8WSEbfTAyX3 PwaH5bUpSu HUSoZQCtJ8TwjMUiGQaqU3 61SWffCtZ0XTFzosHcV6Bn DHIxrRytUcQ9v9S2Xw9WDg 37IS44SA25 wQSwx6D3cJD2Z2DqOJIohd umcryjfDF8EKCjWHNznG39 Ex0zzZkjOu1mBZTbDDM4IT WccVIrQ4Vl mW9lHiYpLAYvBQPaG6LnhM UtDJlyX728KDgsOxU4TLCc ryOvS8LrEUTwhEsxDtF2r2 V4Ce4RNBar lkx9D0OcNzoqwGT+PC90YW YdDC57tLTkwQGhr3xnfLn9 YrYoOUNcRXU0vInoMGnob6 RzEGTyZ57x [facility] (more content not included)... Normal [facility] CT Head or Brain w/o Contras ton 12-14-2021 CT Head or Brain w/o Contrast [...] Marcus MD 12/14/21 6:37 pm Technologist: MARCY Normal [facility] ED Clinical Summaryon 2021 ED Clinical Summary [facility] - Emergency Department [address] [place], [place] [id number] ED Clinical Summary PERSON INFORMATION Name: SD REHMAN Age: 71 Years Sex: FEMALE : 1950 MRN: Acct#: Visit Reason: Closed head injury without LOC; FALL-HEAD/RT WRIST INJURY Arrival: 12/14/2021 17:41:04 Discharge: 12/14/2021 18:56:00 LOS: 000 01:15 Check In: 12/14/2021 17:41:04 Checkout:12/14/2021 18:56:00 Address: [address] [place] [address] PCP: PATRICK ODOM PROVIDER INFORMATION Provider Role [...] Electronic [employer] (more content not included)... Normal [facility] ED Note - Physicianon 2021 ED Note [...] Regular r (more content not included)... Normal [facility] ED Note-Nursingon 12-14-2021 ED Note-Nursing PA(KIM) washed skin tear with saline and betasept, see PA note. Nonstick dressing and gauze wrapped around site. Normal [facility] ED Note-Nursing Patient arrives afte r falling from the first step on her camper. Patient did hit her head, no LOC. Hematoma. Patient has c/o right knee pain and right wrist pain. Small skin tear on right wrist. Patient does take blood thinners. Alert and oriented. Event occurred around 1600. [facility] ED Patient Summaryon 022 ED Patient Summary [facility] - Emergency Department [address] [place] [address] PATIENT DISCHARGE INSTRUCTIONS Patient Information Name: SD REHMAN Age: 71 Years Date of : 1950 Reason For Visit: Closed head injury without LOC; FALL-HEAD/RT WRIST INJURY Arrival Time: 12/14/2021 17:41:04 Primary Care Physician: PATRICK ODOM Attending Physician: Elijah Terrazas MD Comment: Visit Diagnosis: Diagnoses This Visit Closed head injury without LOC ([id number]) Closed head injury without loss of consciousness (S09.90XA) Contusion of right knee (S80.01) Elevated blood pressure reading (R03.0) Fall (on) (from) other stairs and steps (W10.8) Skin tear of right upper extremity (S41.111A) The Pharmacy at [facility] is open Thursday through Thursday from [...] alcohol and/or drug addiction problems; contact the [facility] 13/10 Crisis Hotline -Text 2PGVD to 748473. If you received any narcotics, sedation, or [...] any legal documents With: Address: When: PATRICK ODOM [address] [place], [place] [id number] Business (1) Within 3 to 5 days [...] and treatment you received today in the [facility] Emergency Department were for an urgent problem and are not intended as complete care. It is important for you to follow up with a doctor, nurse practitioner, or physician?s portfolio assistant for ongoing care. If your symptoms [...] so we can reach you if necessary. [facility] Emergency Department has provided you with a complete list of medications post discharge. Please inform your hotel desk clerk/provider of your visit and for further instruction [...] Room air (more content not included)... Normal [facility] XR Knee Complete Righton XR Knee Complete [...] Small knee joint effusion. Final Dictated by: Néstro Marcus MD Dictated DT/TM: 12/14/21 6:21 Signed (Electronic Signature): Néstor Marcus MD 12/14/21 6:23 pm Technologist: Kristen RODAS Normal [facility] Covid-19 PCR (CVDTB)on 11-21 SARS-CoV-2 (COVID-19) RNA GABRIELA+probe Ql (Unsp spec) Not detected Normal NOT DETECTED [facility] Comment on above: Result Comment: This test is not yet approved or cleared by the [place] FDA. When there are no FDA-approved or cleared tests available, and other criteria are met, FDA can make tests available under an emergency access mechanism called an Emergency Use Authorization (EUA). The EUA for this test is supported by the [employer] of Health and Human Service's (HHS's) declaration [...] By: #### M G, RENAL, URIC #### [facility] [address] [place] [address] Dr. Demetra Costa BNPon 11-21-2021 Natriuretic peptide B (Bld) [Mass/Vol] 234.0 pg/mL Normal <=900.0 [facility] Comment on above: Performed By: #### U PARESH, CMP #### [facility] [address] [address] [address] Demetra Costa CBC AUTO DIFFon 11-21-2021 BASO # 0.1 103/ul Normal 0.0-0.1 [facility] Comment on above: Performed By: #### C BC #### [facility] [address] [place] [address] Dr. Demetra Costa Basophils/100 WBC (Bld) 0.4 % Normal 0.2-2.0 [facility] Comment on above: Performed By: #### C BC #### [facility] [address] [address] [address] Demetra Costa EO # 0.2 103/ul Normal 0.0-0.7 [facility] Comment on above: Performed By: #### C BC #### [facility] [address] [address] [address] Demetra Costa Eosinophils/100 WBC (Bld) 1.3 % Normal 0.9-7.0 [facility] Comment on above: Performed By: #### C BC #### [facility] [address] [place] [address] Dr. Demetra Costa Erythrocyte distribution width (RBC) [Ratio] 16.3 % Critically high 11.0-15.0 [facility] Comment on above: Performed By: #### C BC #### [facility] [address] [place] [address] Dr. Demetra Costa Hematocrit (Bld) [Volume fraction] 35.9 % Critically low 36.0-48.0 [facility] Comment on above: Performed By: #### C BC #### [facility] [address] [place] [address] Dr. Demetra Costa Hemoglobin (Bld) [Mass/Vol] 12.1 g/dL Normal 12.0-16.0 [facility] Comment on above: Performed By: #### C BC #### [facility] [facility] [address] [place] [address] Dr. Demetra Costa IG # 0.08 10e3/ul Critically high 0.00-0.03 [facility] Comment on above: Performed By: #### C BC #### [facility] [address] [place] [address] Dr. Demetra Costa IG % 0.6 % Critically high 0.0-0.5 [facility] Comment on above: Performed By: #### C BC #### [facility] [address] [place] [address] Dr. Demerta Costa LYMPH # 2.0 103/ul Normal 1.2-3.8 [facility] Comment on above: Performed By: #### C BC #### [facility] [address] [address] [address] Demetra Costa Lymphocytes/100 WBC (Bld) 14.8 % Critically low 20.5-60.0 [facility] Comment on above: Performed By: #### C BC #### [facility] [address] [address] [address] Demetra Costa MANUAL DIFF REQ NO Normal [facility] Comment on above: Performed By: #### C BC #### [facility] [address] [place] [address] Dr. Demetra Costa MCH (RBC) [Entitic mass] 34.5 pg Critically high 26.7-34.0 [facility] Comment on above: Performed By: #### C BC #### [facility] [address] [place] [address] Dr. Demetra Costa MCHC (RBC) [Mass/Vol] 33.7 g/dL Normal 29.9-35.2 [facility] Comment on above: Performed By: #### C BC #### [facility] [address] [place] [address] Dr. Demetra Costa MCV (RBC) [Entitic vol] 102.3 fL Critically high 81.0-99.0 [facility] Comment on above: Performed By: #### C BC #### [facility] [address] [place] [address] Dr. Demetra Costa MONO # 1.1 103/ul Critically high 0.3-0.8 [facility] Comment on above: Performed By: #### C BC #### [facility] [address] [place] [address] Dr. Demetra Costa Monocytes/100 WBC (Bld) 8.1 % Normal 1.7-12.0 [facility] Comment on above: Performed By: #### C BC #### [facility] [address] [place] [address] Dr. Demetra Costa NEUT # 10.0 103/ul Critically high 1.4-6.5 [facility] Comment on above: Performed By: #### C BC #### [facility] [address] [address] [address] Demetra Costa Neutrophils/100 WBC (Bld) 74.8 % Normal 43.0-75.0 [facility] Comment on above: Performed By: #### C BC #### [facility] [address] [address] [address] Demetra Costa Platelet mean volume (Bld) [Entitic vol] 9.8 fL Normal 9.5-13.5 [facility] Comment on above: Performed By: #### C BC #### [facility] [address] [address] [address] Demetra Costa PLT 254 103/ul Normal 150-450 [facility] Comment on above: Performed By: #### C BC #### [facility] [address] [address] [address] Demetra Costa RBC 3.51 106/ul Critically low 4.20-5.40 [facility] Comment on above: Performed By: #### C BC #### [facility] [address] [address] [address] Demetra Costa WBC 13.4 103/ul Critically high 4.0-11.0 [facility] Comment on above: Performed By: #### C BC #### [facility] [address] [address] [address] Demetra Costa PROF CHEM 8 (BAS METB)on Anion gap [Moles/Vol] 12.8 mmol/L Normal [facility] Comment on above: Performed By: #### U PARESH, CMP #### [facility] [address] [address] [address] Demetra Costa Calcium [Mass/Vol] 8.8 mg/dL Normal 8.5-10.1 [facility] Comment on above: Performed By: #### U PARESH, CMP #### [facility] [address] [address] [address] Demetra Costa Chloride [Moles/Vol] 104 mmol/L Normal 98-107 [facility] Comment on above: Performed By: #### U PARESH, CMP #### [facility] [address] [address] [address] Demetra Costa CO2 [Moles/Vol] 25.6 mmol/L Normal 21.0-32.0 [facility] Comment on above: Performed By: #### U PARESH, CMP #### [facility] [address] [address] [address] Demetra Costa Creatinine [Mass/Vol] 1.51 mg/dL Critically high 0.55-1.02 [facility] Comment on above: Performed By: #### U PARESH, CMP #### [facility] [address] [address] [address] Demetra Costa EGFR-AF UZBEK 41 mL/min/1.73m2 Critically low >=60 [facility] Comment on above: Performed By: #### U PARESH, CMP #### [facility] [address] [address] [address] Demetra Costa EGFR-NON AF UZBEK 34 mL/min/1.73m2 Critically low >=60 [facility] Comment on above: Performed By: #### U PARESH, CMP #### [facility] [address] [address] [address] Demetra Costa Glucose [Mass/Vol] 103 mg/dL Normal 74-106 [facility] Comment on above: Performed By: #### U PARESH, CMP #### [facility] [address] [address] [address] Demetra Costa Potassium [Moles/Vol] 5.4 mmol/L Critically high 3.5-5.1 [facility] Comment on above: Performed By: #### U PARESH, CMP #### [facility] [address] [address] [address] Demetra Costa Sodium [Moles/Vol] 137 mmol/L Normal 136-145 [facility] Comment on above: Performed By: #### U PARESH, CMP #### [facility] [address] [address] [address] Demetra Costa Urea nitrogen [Mass/Vol] 35.0 mg/dL Critically high 7.0-18.0 [facility] Comment on above: Performed By: #### U PARESH, CMP #### [facility] [address] [place], [place] [address] Dr. Demetra Costa Urea nitrogen/Creatinine [Mass ratio] 23.2 mg/mg Normal [facility] Comment on above: Performed By: #### U PARESH, CMP #### [facility] [address] [place], [place] [address] Dr. Demetra Costa US LYNDA DOP LEG [...] by: ASHLEY WEAVER Date: 2021-11-21 21:28 Normal [facility] XR CHEST 2 Von 11-21-2021 XR CHEST [...] by: NGHIA ANGUIANO Date: 2021-11-21 19:16 Normal [facility] CT LUNG CANCER SCREENINGon 0 11-05-2021 CT [...] by: TERESA AZUL Date: 2021-11-05 06:49 Normal [facility] IMMUNOFIX ELEC, PROTEIN ELEC URINEon 10-01-2021 Albumin, U 72.1 % Normal [facility] Comment on above: Performed By: #### U PARESH, CMP #### [facility] [address], [place] [address] Dr. Demetra Costa Quouv-1-Hkywilus, U 1.4 % Normal [facility] Comment on above: Performed By: #### U PARESH, CMP #### [facility] [address] [place], [place] [address] Dr. Demetra Costa Emjst-1-Hoyxewuh, U 6.1 % Normal [facility] Comment on above: Performed By: #### U PARESH, CMP #### [facility] [address] [address] [address] Demetra Costa Beta Globulin, U 14.6 % Normal [facility] Comment on above: Performed By: #### U PARESH, CMP #### [facility] [address] [address] [address] Demetra Costa Gamma Globulin, U 5.8 % Normal [facility] Comment on above: Performed By: #### U PARESH, CMP #### [facility] [address] [address] [address] Demetra Costa Immunofixation Result, Urine Comment Normal [facility] Comment on above: Result Comment: No m onoclonality detected. Performed By: #### U PARESH, CMP #### [facility] [address] [place] [address] Dr. Demetra Costa M-Evans, % Not Observed Normal Not Observed [facility] Comment on above: Performed By: #### U PARESH, CMP #### [facility] [address] [address] [address] Demetra Costa Note: Comment Normal [facility] Comment on above: Result Comment: Prot ein electrophoresis scan will follow via computer, mail, or accounts payable clerk delivery. Performed By: #### U PARESH, CMP #### [facility] [address] [place] [address] Dr. Demetra Costa PDF . Normal [facility] Comment on above: Performed By: #### U PARESH, CMP #### [facility] [address] [address] [address] Demetra Costa Protein (U) [Mass/Vol] 79.0 mg/dL Normal Not Estab. [facility] Comment on above: Performed By: #### U PARESH, CMP #### [facility] [address] [place] [address] Dr. Demetra Costa IMMUNOFIXATION(NISHA),PROTEIN ELEC(PE),Lianet 09-28-2021 Albumin [Mass/Vol] 3.5 g/dL Normal 2.9-4.4 [facility] Comment on above: Performed By: #### I FEPEFL #### [facility] [address] [place] [address] Dr. Demetra Costa Albumin/Globulin [Mass ratio] 1.3 {ratio} Normal 0.7-1.7 [facility] Comment on above: Performed By: #### I FEPEFL #### [facility] [address] [place] [address] Dr. Demetra Costa Xrfbi-5-Sdzawwkn 0.3 g/dL Normal 0.0-0.4 [facility] Comment on above: Performed By: #### I FEPEFL #### [facility] [address] [place] [address] Dr. Demetra Costa Ixgll-4-Opshipuy 1.1 g/dL Critically high 0.4-1.0 [facility] Comment on above: Performed By: #### I FEPEFL #### [facility] [address] [place] [address] Dr. Demetra Costa Beta Globulin 1.1 g/dL Normal 0.7-1.3 [facility] Comment on above: Performed By: #### I FEPEFL #### [facility] [address] [place] [address] Dr. Demetra Costa Free [place] Lt Chains,S 19.2 mg/L Normal 3.3-19.4 [facility] Comment on above: Performed By: #### I FEPEFL #### [facility] [address] [place] [address] Dr. Demetra Costa Free [place] Lt Chains,S 20.6 mg/L Normal 5.7-26.3 [facility] Comment on above: Performed By: #### I FEPEFL #### [facility] [address] [place] [address] Dr. Demetra Costa Gamma Globulin 0.4 g/dL Normal 0.4-1.8 [facility] Comment on above: Performed By: #### I FEPEFL #### [facility] [address] [place] [address] Dr. Demetra Costa Globulin (S) [Mass/Vol] 2.9 g/dL Normal 2.2-3.9 [facility] Comment on above: Performed By: #### I FEPEFL #### [facility] [address] [place] [address] Dr. Demetra Costa Immunofixation Result, Serum Comment Normal [facility] Comment on above: Result Comment: No m onoclonality detected. Performed By: #### I FEPEFL #### [facility] [address] [place] [address] Dr. Demetra Costa Immunoglobulin A, Qn, Serum 171 mg/dL Normal 87-352 [facility] Comment on above: Performed By: #### I FEPEFL #### [facility] [address] [place] [address] Dr. Demetra Costa Immunoglobulin G, Qn, Serum 470 mg/dL Critically low [id number] [facility] Comment on above: Performed By: #### I FEPEFL #### [facility] [address] [place] [address] Dr. Demetra Costa Immunoglobulin M, Qn, Serum 29 mg/dL Normal 26-217 [facility] Comment on above: Performed By: #### I FEPEFL #### [facility] [address] [place] [address] Dr. Demetra Costa [place]/Lambda Ratio, S 0.93 Normal 0.26-1.65 [facility] Comment on above: Performed By: #### I FEPEFL #### [facility] [address] [place] [address] Dr. Demetra Costa M-Evans Not Observed Normal Not Observed [facility] Comment on above: Performed By: #### I FEPEFL #### [facility] [address] [place] [address] Dr. Demetra Costa PDF . Normal [facility] Comment on above: Performed By: #### I FEPEFL #### [facility] [address] [place] [address] Dr. Demetra Costa Please note: Comment Normal [facility] Comment on above: Result Comment: Prot ein electrophoresis scan will follow via computer, mail, or accounts payable clerk delivery. Performed By: #### I FEPEFL #### [facility] [address] [place] [address] Dr. Demetra Costa Protein [Mass/Vol] 6.4 g/dL Normal 6.0-8.5 [facility] Comment on above: Performed By: #### I FEPEFL #### [facility] [address] [place] [address] Dr. Demetra Costa CBC AUTO DIFFon 09-19-2021 BASO # 0.1 103/ul Normal 0.0-0.1 [facility] Comment on above: Performed By: #### M G, RENAL, URIC #### [facility] [address] [place] [address] Dr. Demetra Costa Basophils/100 WBC (Bld) 0.6 % Normal 0.2-2.0 [facility] Comment on above: Performed By: #### M G, RENAL, URIC #### [facility] [address] [place] [address] Dr. Demetra Costa EO # 0.1 103/ul Normal 0.0-0.7 [facility] Comment on above: Performed By: #### M G, RENAL, URIC #### [facility] [address] [place] [address] Dr. Demetra Costa Eosinophils/100 WBC (Bld) 1.2 % Normal 0.9-7.0 [facility] Comment on above: Performed By: #### M G, RENAL, URIC #### [facility] [address] [place] [address] Dr. Demetra Costa Erythrocyte distribution width (RBC) [Ratio] 15.0 % Normal 11.0-15.0 [facility] Comment on above: Performed By: #### M G, RENAL, URIC #### [facility] [address] [place] [address] Dr. Demetra Costa Hematocrit (Bld) [Volume fraction] 40.6 % Normal 36.0-48.0 [facility] Comment on above: Performed By: #### M G, RENAL, URIC #### [facility] [address] [address] [address] Demetra Costa Hemoglobin (Bld) [Mass/Vol] 13.4 g/dL Normal 12.0-16.0 [facility] Comment on above: Performed By: #### M G, RENAL, URIC #### [facility] [address] [address] [address] Demetra Costa IG # 0.04 10e3/ul Critically high 0.00-0.03 [facility] Comment on above: Performed By: #### M G, RENAL, URIC #### [facility] [address] [address] [address] Demetra Costa IG % 0.4 % Normal 0.0-0.5 [facility] Comment on above: Performed By: #### M G, RENAL, URIC #### [facility] [address] [place] [address] Dr. Demetra Costa LYMPH # 2.3 103/ul Normal 1.2-3.8 [facility] Comment on above: Performed By: #### M G, RENAL, URIC #### [facility] [address] [address] [address] Demetra Costa Lymphocytes/100 WBC (Bld) 22.8 % Normal 20.5-60.0 [facility] Comment on above: Performed By: #### M G, RENAL, URIC #### [facility] [address] [address] [address] Demetra Costa MANUAL DIFF REQ NO Normal [facility] Comment on above: Performed By: #### M G, RENAL, URIC #### [facility] [address] [address] [address] Demetra Costa MCH (RBC) [Entitic mass] 33.3 pg Normal 26.7-34.0 [facility] Comment on above: Performed By: #### M G, RENAL, URIC #### [facility] [address] [place] [address] Dr. Demetra Costa MCHC (RBC) [Mass/Vol] 33.0 g/dL Normal 29.9-35.2 [facility] Comment on above: Performed By: #### M G, RENAL, URIC #### [facility] [address] [place] [address] Dr. Demetra Costa MCV (RBC) [Entitic vol] 101.0 fL Critically high 81.0-99.0 [facility] Comment on above: Performed By: #### M G, RENAL, URIC #### [facility] [address] [place] [address] Dr. Demetra Costa MONO # 0.7 103/ul Normal 0.3-0.8 [facility] Comment on above: Performed By: #### M G, RENAL, URIC #### [facility] [address] [place] [address] Dr. Demetra Costa Monocytes/100 WBC (Bld) 7.1 % Normal 1.7-12.0 [facility] Comment on above: Performed By: #### M G, RENAL, URIC #### [facility] [address] [place] [address] Dr. Demetra Costa NEUT # 7.0 103/ul Critically high 1.4-6.5 [facility] Comment on above: Performed By: #### M G, RENAL, URIC #### [facility] [address] [place] [address] Dr. Demetra Costa Neutrophils/100 WBC (Bld) 67.9 % Normal 43.0-75.0 [facility] Comment on above: Performed By: #### M G, RENAL, URIC #### [facility] [address] [place] [address] Dr. Demetra Costa Platelet mean volume (Bld) [Entitic vol] 9.4 fL Critically low 9.5-13.5 [facility] Comment on above: Performed By: #### M G, RENAL, URIC #### [facility] [address] [place] [address] Dr. Demetra Costa PLT 268 103/ul Normal 150-450 [facility] Comment on above: Performed By: #### M G, RENAL, URIC #### [facility] [address] [place] [address] Dr. Demetra Costa RBC 4.02 106/ul Critically low 4.20-5.40 [facility] Comment on above: Performed By: #### M G, RENAL, URIC #### [facility] [address] [address] [address] Demetra Costa WBC 10.3 103/ul Normal 4.0-11.0 [facility] Comment on above: Performed By: #### M G, RENAL, URIC #### [facility] [address] [address] [address] Demetra Costa GLYCOHEMOGLOBIN A1Con 2021 ADA RECOMMENDATION SEE BELOW Normal [facility] Comment on above: Result Comment: ADA RECOMMENDED LIMIT 4.0 - 6.0 ADA THERAPEUTIC TARGET < 7.0 ACTION SUGGESTED > 7.0 Performed By: #### A 1C #### [facility] [address] [address] [address] Demetra Costa Glucose [Mass/Vol] 123 mg/dL Normal [facility] Comment on above: Performed By: #### A 1C #### [facility] [address] [address] [address] Demetra Costa HbA1c (Bld) [Mass fraction] 5.9 % Normal 4.5-6.2 [facility] Comment on above: Performed By: #### A 1C #### [facility] [address] [place] [address] Dr. Demetra Costa PROF 14(COMP METB)on 022 Albumin [Mass/Vol] 3.2 g/dL Critically low 3.4-5.0 [facility] Comment on above: Performed By: #### U PARESH, CMP #### [facility] [address] [address] [address] Demetra Costa Albumin/Globulin [Mass ratio] 0.9 {ratio} Normal [facility] Comment on above: Performed By: #### U PARESH, CMP #### [facility] [address] [address] [address] Demetra Costa ALP [Catalytic activity/Vol] 88 U/L Normal 46-116 [facility] Comment on above: Performed By: #### U PARESH, CMP #### [facility] [address] [address] [address] Demetra Costa ALT [Catalytic activity/Vol] 25 U/L Normal 14-59 [facility] Comment on above: Performed By: #### U PARESH, CMP #### [facility] [address] [address] [address] Demetra Costa Anion gap [Moles/Vol] 15.4 mmol/L Normal [facility] Comment on above: Performed By: #### U PARESH, CMP #### [facility] [address] [address] [address] Demetra Costa AST [Catalytic activity/Vol] 11 U/L Critically low 15-37 [facility] Comment on above: Performed By: #### U PARESH, CMP #### [facility] [address] [address] [address] Demetra Costa Bilirubin [Mass/Vol] 0.4 mg/dL Normal 0.2-1.0 [facility] Comment on above: Performed By: #### U PARESH, CMP #### [facility] [address] [address] [address] Demetra Costa Calcium [Mass/Vol] 9.3 mg/dL Normal 8.5-10.1 [facility] Comment on above: Performed By: #### U PARESH, CMP #### [facility] [address] [address] [address] Demetra Costa Chloride [Moles/Vol] 102 mmol/L Normal 98-107 [facility] Comment on above: Performed By: #### U PARESH, CMP #### [facility] [address] [address] [address] Demetra Costa CO2 [Moles/Vol] 24.6 mmol/L Normal 21.0-32.0 [facility] Comment on above: Performed By: #### U PARESH, CMP #### [facility] [address] [address] [address] Demetra Costa Creatinine [Mass/Vol] 1.35 mg/dL Critically high 0.55-1.02 [facility] Comment on above: Performed By: #### U PARESH, CMP #### [facility] [address] [address] [address] Demetra Costa EGFR-AF UZBEK 47 mL/min/1.73m2 Critically low >=60 [facility] Comment on above: Performed By: #### U PARESH, CMP #### [facility] [address] [address] [address] Demetra Costa EGFR-NON AF UZBEK 39 mL/min/1.73m2 Critically low >=60 [facility] Comment on above: Performed By: #### U PARESH, CMP #### [facility] [address] [address] [address] Demetra Costa Globulin (S) [Mass/Vol] 3.7 g/dL Normal [facility] Comment on above: Performed By: #### U PARESH, CMP #### [facility] [address] [address] [address] Demetra Costa Glucose [Mass/Vol] 109 mg/dL Critically high 74-106 [facility] Comment on above: Performed By: #### U PARESH, CMP #### [facility] [address] [address] [address] Demetra Costa Potassium [Moles/Vol] 5.0 mmol/L Normal 3.5-5.1 [facility] Comment on above: Performed By: #### U PARESH, CMP #### [facility] [address] [address] [address] Demetra Costa Protein [Mass/Vol] 6.9 g/dL Normal 6.4-8.2 The [facility] Comment on above: Performed By: #### U PARESH, CMP #### [facility] [address] [address] [address] Demetra Costa Sodium [Moles/Vol] 137 mmol/L Normal 136-145 [facility] Comment on above: Performed By: #### U PARESH, CMP #### [facility] [address] [address] [address] Demetra Costa Urea nitrogen [Mass/Vol] 28.0 mg/dL Critically high 7.0-18.0 The [facility] Comment on above: Performed By: #### U PARESH, CMP #### [facility] [address] [place] [address] Dr. Demetra Costa Urea nitrogen/Creatinine [Mass ratio] 20.7 mg/mg Normal The [facility] Comment on above: Performed By: #### U PARESH, CMP #### [facility] [address] [place] [address] Dr. Demetra Costa UA RANDOM W/MICROSCOPICon BACTERIA TRACE Abnormal NONE SEEN The [facility] Comment on above: Performed By: #### M G, RENAL, URIC #### [facility] [address] [place] [address] Dr. Demetra Costa Bilirubin Ql (U) Negative Normal NEGATIVE The [facility] Comment on above: Performed By: #### M G, RENAL, URIC #### [facility] [address] [place] [address] Dr. Demetra Costa CAST NONE SEEN Normal NONE SEEN The [facility] Comment on above: Performed By: #### M G, RENAL, URIC #### [facility] [address] [place] [address] Dr. Demetra Costa Clarity (U) SL CLOUDY Abnormal CLEAR The [facility] Comment on above: Performed By: #### M G, RENAL, URIC #### [facility] [address] [place] [address] Dr. Demetra Costa Color (U) LT. YELLOW Normal YELLOW The [facility] Comment on above: Performed By: #### M G, RENAL, URIC #### [facility] [address] [place] [address] Dr. Demetra Costa Crystals LM Nom (Urine sed) NONE SEEN Normal NONE SEEN The [facility] Comment on above: Performed By: #### M G, RENAL, URIC #### [facility] [address] [place] [address] Dr. Demetra Costa Epithelial cells LM Ql (Urine sed) FEW Abnormal NONE SEEN /RARE The [facility] Comment on above: Performed By: #### M G, RENAL, URIC #### [facility] [address] [address] [address] Demetra Costa Glucose Ql (U) Negative Normal NEGATIVE The [facility] Comment on above: Performed By: #### M G, RENAL, URIC #### [facility] [address] [address] [address] Demetra Costa Hemoglobin Ql (U) Negative Normal NEGATIVE The [facility] Comment on above: Performed By: #### M G, RENAL, URIC #### [facility] [address] [address] [address] Demetra Costa Ketones Ql (U) Negative Normal NEGATIVE The [facility] Comment on above: Performed By: #### M G, RENAL, URIC #### [facility] [address] [address] [address] Demetra Costa LEUKOCYTES Negative Normal NEGATIVE [facility] Comment on above: Performed By: #### M G, RENAL, URIC #### [facility] [address] [address] [address] Demetra Costa MUCOUS NONE SEEN Normal NONE SEEN The [facility] Comment on above: Performed By: #### M G, RENAL, URIC #### [facility] [address] [address] [address] Demetra Costa Nitrite Ql (U) Negative Normal NEGATIVE The [facility] Comment on above: Performed By: #### M G, RENAL, URIC #### [facility] [address] [address] [address] Demetra Costa pH (U) 7.0 [pH] Normal 5-9 [facility] Comment on above: Performed By: #### M G, RENAL, URIC #### [facility] [address] [address] [address] Demetra Costa RBC 0-2 Normal 0-2 The [facility] Comment on above: Performed By: #### M G, RENAL, URIC #### [facility] [address] [address] [address] Demetra Costa SPEC GRAVITY 1.010 Normal 1.005-<=1.025 The [facility] Comment on above: Performed By: #### M G, RENAL, URIC #### [facility] [address] [address] [address] Demetra Costa UA PROTEIN Negative Normal NEGATIVE/ TRACE The [facility] Comment on above: Performed By: #### M G, RENAL, URIC #### [facility] [address] [address] [address] Demetra Costa Urobilinogen Qn (U) 0.2 {Favio'U}/dL Normal 0.2 - 1. 0 The [facility] Comment on above: Performed By: #### M G, RENAL, URIC #### [facility] [address] [address] [address] Demetra Costa WBC NONE SEEN Normal NONE SEEN The [facility] Comment on above: Performed By: #### M G, RENAL, URIC #### [facility] [address] [place] [address] Dr. Demetra Costa URIC ACID SERUMon 09-19-2021 Urate [Mass/Vol] 3.4 mg/dL Normal 2.6-6.0 [facility] Comment on above: Performed By: #### U PARESH, CMP #### [facility] [address] [address] [address] Demetra Costa URINE T PROTEIN CREAT RATIOo n 09-19-2021 Protein (U) [Mass/Vol] 22.8 mg/dL Critically high <=12.0 [facility] Comment on above: Performed By: #### U PARESH, CMP #### [facility] [address] [place] [address] Dr. Demetra Costa UR PROT CREAT RAT 1.18 Normal [facility] Comment on above: Performed By: #### U PARESH, CMP #### [facility] [address] [address] [address] Demetra Costa URINE CREAT 19.38 mg/dL Critically low 20.00-300.00 [facility] Comment on above: Performed By: #### U PARESH, CMP #### [facility] [address] [place] [address] Dr. Demetra Costa PTH INTACTon 09-17-2021 PTH, Intact 49 pg/mL Normal 15-65 The [facility] Comment on above: Performed By: #### M G, RENAL, URIC #### [facility] [address] [place] [address] Dr. Demetra Costa HEMOGRAM AND PLATELon 2021 Hematocrit (Bld) [Volume fraction] 40.3 % Normal 36.0-48.0 The [facility] Comment on above: Performed By: #### M G, RENAL, URIC #### [facility] [address] [place] [address] Dr. Demetra Costa Hemoglobin (Bld) [Mass/Vol] 13.2 g/dL Normal 12.0-16.0 The [facility] Comment on above: Performed By: #### M G, RENAL, URIC #### [facility] [address] [place] [address] Dr. Demetra Costa MCH (RBC) [Entitic mass] 33.2 pg Normal 26.7-34.0 The [facility] Comment on above: Performed By: #### M G, RENAL, URIC #### [facility] [address] [place] [address] Dr. Demetra Costa MCHC (RBC) [Mass/Vol] 32.8 g/dL Normal 29.9-35.2 The [facility] Comment on above: Performed By: #### M G, RENAL, URIC #### [facility] [address] [place] [address] Dr. Demetra Costa MCV (RBC) [Entitic vol] 101.3 fL Critically high 81.0-99.0 The [facility] Comment on above: Performed By: #### M G, RENAL, URIC #### [facility] [address] [place] [address] Dr. Demetra Costa PLT 279 103/ul Normal 150-450 The [facility] Comment on above: Performed By: #### M G, RENAL, URIC #### [facility] [address] [place] [address] Dr. Demetra Costa RBC 3.98 106/ul Critically low 4.20-5.40 The [facility] Comment on above: Performed By: #### M G, RENAL, URIC #### [facility] [address] [address] [address] Demetra Costa WBC 12.5 103/ul Critically high 4.0-11.0 The [facility] Comment on above: Performed By: #### M G, RENAL, URIC #### [facility] [address] [place] [address] Dr. Demetra Costa MAGNESIUMon 09-16-2021 Magnesium [Mass/Vol] 1.9 mg/dL Normal 1.8-2.4 [facility] Comment on above: Performed By: #### U PARESH, CMP #### [facility] [address] [place] [address] Dr. Demetra Costa PROF CHEM 8 (BAS METB)on Anion gap [Moles/Vol] 13.3 mmol/L Normal [facility] Comment on above: Performed By: #### M G, RENAL, URIC #### [facility] [address] [place] [address] Dr. Demetra Costa Calcium [Mass/Vol] 9.3 mg/dL Normal 8.5-10.1 [facility] Comment on above: Performed By: #### M G, RENAL, URIC #### [facility] [address] [place] [address] Dr. Demetra Costa Performed By: #### U PARESH, CMP #### [facility] [address] [place] [address] Dr. Demetra Costa Chloride [Moles/Vol] 104 mmol/L Normal 98-107 The [facility] Comment on above: Performed By: #### M G, RENAL, URIC #### [facility] [address] [place] [address] Dr. Demetra Costa Performed By: #### U PARESH, CMP #### [facility] [address] [place] [address] Dr. Demetra Costa CO2 [Moles/Vol] 23.6 mmol/L Normal 21.0-32.0 The [facility] Comment on above: Performed By: #### M G, RENAL, URIC #### [facility] [address] [place] [address] Dr. Demetra Costa Creatinine [Mass/Vol] 1.40 mg/dL Critically high 0.55-1.02 [facility] Comment on above: Performed By: #### M G, RENAL, URIC #### [facility] [address] [place] [address] Dr. Demetra Costa EGFR-AF UZBEK 45 mL/min/1.73m2 Critically low >=60 [facility] Comment on above: Performed By: #### M G, RENAL, URIC #### [facility] [address] [place] [address] Dr. Demetra Costa Performed By: #### U PARESH, CMP #### [facility] [address] [place] [address] Dr. Demetra Costa EGFR-NON AF UZBEK 37 mL/min/1.73m2 Critically low >=60 [facility] Comment on above: Performed By: #### M G, RENAL, URIC #### [facility] [address] [address] [address] Demetra Costa Performed By: #### U PARESH, CMP #### [facility] [address] [place] [address] Dr. Demetra Costa Glucose [Mass/Vol] 110 mg/dL Critically high 74-106 [facility] Comment on above: Performed By: #### M G, RENAL, URIC #### [facility] [address] [place] [address] Dr. Demetra Costa Performed By: #### U PARESH, CMP #### [facility] [address] [place] [address] Dr. Demetra Costa Potassium [Moles/Vol] 4.9 mmol/L Normal 3.5-5.1 [facility] Comment on above: Performed By: #### M G, RENAL, URIC #### [facility] [address] [place] [address] Dr. Demetra Costa Performed By: #### U PARESH, CMP #### [facility] [address] [address] [address] Demetra Costa Sodium [Moles/Vol] 136 mmol/L Normal 136-145 [facility] Comment on above: Performed By: #### M G, RENAL, URIC #### [facility] [address] [address] [address] Demetra Costa Urea nitrogen [Mass/Vol] 38.0 mg/dL Critically high 7.0-18.0 [facility] Comment on above: Performed By: #### M G, RENAL, URIC #### [facility] [address] [address] [address] Demetra Costa Performed By: #### U PARESH, CMP #### [facility] [address] [address] [address] Demetra Costa Urea nitrogen/Creatinine [Mass ratio] 27.1 mg/mg Normal [facility] Comment on above: Performed By: #### M G, RENAL, URIC #### [facility] [address] [address] [address] Demetra Costa RENAL FUNCTION PANELon 09-16 Albumin [Mass/Vol] 3.2 g/dL Critically low 3.4-5.0 [facility] Comment on above: Performed By: #### U PARESH, CMP #### [facility] [address] [address] [address] Demetra Csota CO2 [Moles/Vol] 23.4 mmol/L Normal 21.0-32.0 [facility] Comment on above: Performed By: #### U PARESH, CMP #### [facility] [address] [address] [address] Demetra Costa Creatinine [Mass/Vol] 1.39 mg/dL Critically high 0.55-1.02 [facility] Comment on above: Performed By: #### U PARESH, CMP #### [facility] [address] [address] [address] Demetra Costa Phosphate [Mass/Vol] 3.8 mg/dL Normal 2.6-4.7 [facility] Comment on above: Performed By: #### U PARESH, CMP #### [facility] [address] [address] [address] Demetra Costa Sodium [Moles/Vol] 137 mmol/L Normal 136-145 The [facility] Comment on above: Performed By: #### U PARESH, CMP #### [facility] [address] [address] [address] Demetra Costa URIC ACID SERUMon 09-16-2021 Urate [Mass/Vol] 4.0 mg/dL Normal 2.6-6.0 [facility] Comment on above: Performed By: #### U PARESH, CMP #### [facility] [address] [address] [address] Demetra Costa VITAMIN D 25 OHon 09-16-2021 VIT D 25-OH 38.1 ng/mL Normal [facility] Comment on above: Performed By: #### U PARESH, CMP #### [facility] [address] [place] [address] Dr. Demetra Costa VIT D RANGES SEE BELOW Normal [facility] Comment on above: Result Comment: <20 ng/mL Vit D deficient 20 - <30 ng/mL Vit D insufficient 30 - 100 ng/mL Vit D sufficient >100 ng/mL Potential Toxicity Performed By: #### U PARESH, CMP #### [facility] [address] [place] [address] Dr. Demetra Costa MRI LSPINE WO CONon 08-17-19 22 MRI LSPINE WO CON EXAMINATION: MRI LSPINE [...] by: TERESA AZUL Date: 2021-08-16 15:11 Normal The [facility] MG MAMM DX 3D RT CADon 07-23 MG MAMM DX 3D RT CAD Patient: SD REHMAN Exam Date: 07/23/2021 : 1950 Gender:F Ordering : DR OLIVIA FATIMA Admission #: [id number] Family : Order #: [id number] CLICK HERE TO VIEW EXAM RADIOLOGY REPORT [...] lung cancer at age 61. LOCATION: The [facility] BREAST COMPOSITION: Heterogeneously dense,which may obscure small [...] Azul M.D. on 07/23/2021 at 15:03 Normal [facility] URIC ACIDon 10-14-2019 Urate [Mass/Vol] 5.3 mg/dL Normal 2.5-7.0 [facility] Comment on above: Result Comment: Ther apeutic target for gout patients: <6.0 mg/dL Performed By: #### 9 05 #### [facility], [address] [place] [address] Religious Activities Director: Malik Ruiz MD URIC ACIDon 09-23-2019 Urate [Mass/Vol] 5.8 mg/dL Normal 2.5-7.0 [facility] Comment on above: Result Comment: Ther apeutic target for gout patients: <6.0 mg/dL Performed By: #### 9 05 #### [facility], [address] [place] [address] Religious Activities Director: Malik Ruiz MD URIC ACIDon 07-29-2019 Urate [Mass/Vol] 6.7 mg/dL Normal 2.5-7.0 [facility] Comment on above: Result Comment: Ther apeutic target for gout patients: <6.0 mg/dL Performed By: #### 9 05 #### [facility], [address] [place] [address] Religious Activities Director: Malik Ruiz MD URIC ACIDon 07-01-2019 Urate [Mass/Vol] 8.4 mg/dL High 2.5-7.0 [facility] Comment on above: Result Comment: Ther apeutic target for gout patients: <6.0 mg/dL Performed By: #### 9 05 #### [facility], [address] [place] [address] Religious Activities Director: Malik Ruiz MD Vital Signs Date Time Vital Sign Value Performing Clinician Facility 08-20-2023 10:040 Body height 158.75 cm [facility] 08-20-2023 10:290400 Body mass index (BMI) [Ratio] 42.1 kg/m2 [facility] 08-20-2023 10:040 Body temperature 98.3 [degF] [facility] 08-20-2023 10:29-0400 Body weight 106.19 kg [facility] 08-20-2023 10:29-0400 Diastolic blood pressure 86 mm[Hg] [facility] 08-20-2023 10:29-0400 Heart rate 87 /min [facility] 08-20-2023 10:29-0400 Respiratory rate 18 /min [facility] 08-20-2023 10:29-0400 SaO2% (BldA) [Mass fraction] 98 % [facility] 08-20-2023 10:29-0400 Systolic blood pressure 157 mm[Hg] [facility] 07-16-2023 13:48-0400 Body height 157.5 cm [employer] Work Phone: [facility] 07-16-2023 13:48-0400 Body mass index (BMI) [Ratio] 42.07 kg/m2 [employer] Work Phone: [facility] 07-16-2023 13:48-0400 Body weight 104.33 kg [employer] Work Phone: [facility] [email or web address] [facility] 12-16-2022 15:00-0400 Body height 158.75 cm Odell Karen Other [employer] Other 12-16-2022 15:00-0400 Body mass index (BMI) [Ratio] 42.83 kg/m2 Odell Karen Other [employer] Other 12-16-2022 15:00-0400 Body weight 107.96 kg Odell Karen Other [employer] Other 12-16-2022 15:00-0400 Diastolic blood pressure 74 mm[Hg] Odell Karen Other [employer] Other 12-16-2022 15:00-0400 Respiratory rate 18 /min Odell Karen Other [employer] Other 12-16-2022 15:00-0400 SaO2% (BldA) [Mass fraction] 98 % Odell Karen Other [employer] Other 12-16-2022 15:00-0400 Systolic blood pressure 124 mm[Hg] Odell Karen Other [employer] Other 09-03-2022 13:40-0400 Body height 158.8 cm Vita Joshi CANINE SERVICE INSTRUCTOR TRAINER-LEGAL PRACTICE MANAGER Work Phone: [facility] 09-03-2022 13:40-0400 Body mass index (BMI) [Ratio] 41.4 kg/m2 [employer] Joshi CANINE SERVICE INSTRUCTOR TRAINER-LEGAL PRACTICE MANAGER Work Phone: [facility] 09-03-2022 13:40-0400 Body temperature 96.91 [degF] Vita Madelyn CANINE SERVICE INSTRUCTOR TRAINER-LEGAL PRACTICE MANAGER Work Phone: [employer] [facility] 09-03-2022 13:40-0400 Body weight 104.33 kg Vita Madelyn CANINE SERVICE INSTRUCTOR TRAINER-LEGAL PRACTICE MANAGER Work Phone: [facility] 07-30-2022 13:47-0400 Body height 157.5 cm Vita Joshi CANINE SERVICE INSTRUCTOR TRAINER-LEGAL PRACTICE MANAGER Work Phone: [facility] 07-30-2022 13:47-0400 Body mass index (BMI) [Ratio] 41.15 kg/m2 Vita Madelyn CANINE SERVICE INSTRUCTOR TRAINER-LEGAL PRACTICE MANAGER Work Phone: [employer] [facility] 07-30-2022 13:47-0400 Body temperature 97 [degF] Vita Madelyn CANINE SERVICE INSTRUCTOR TRAINER-LEGAL PRACTICE MANAGER Work Phone: [email or web address] [facility] 07-30-2022 13:47-0400 Body weight 102.06 kg Vita Joshi CANINE SERVICE INSTRUCTOR TRAINER-LEGAL PRACTICE MANAGER Work Phone: [employer] 07-09-2022 09:20-0400 Body height 157.5 cm Vita Joshi APRN-LEGAL PRACTICE MANAGER Work Phone: [employer] 07-09-2022 09:20-0400 Body mass index (BMI) [Ratio] 41.15 kg/m2 Vita Joshi APRN-LEGAL PRACTICE MANAGER Work Phone: [employer] 07-09-2022 09:20-0400 Body temperature 97.3 [degF] Vita Joshi APRN-LEGAL PRACTICE MANAGER Work Phone: [employer] 07-09-2022 09:20-0400 Body weight 102.06 kg Vita Joshi APRN-LEGAL PRACTICE MANAGER Work Phone: [employer] [facility] 06-25-2022 13:00-0400 Body height 157.5 cm [employer]ilyn [employer] Work Phone: [employer] 06-25-2022 13:00-0400 Body mass index (BMI) [Ratio] 41.15 kg/m2 [employer] Work Phone: [employer] 06-25-2022 13:00-0400 Body weight 102.06 kg Jerilyn [employer] Work Phone: [employer] [facility] 06-11-2022 16:49-0400 Body temperature 97.7 [degF] Navin Clark MD Work Phone: [employer] [facility] 06-11-2022 16:49-0400 Diastolic blood pressure 63 mm[Hg] Navin Clark MD Work Phone: [employer] 06-11-2022 16:49-0400 Heart rate 68 /min Navin Clark MD Work Phone: [employer] 06-11-2022 16:49-0400 Respiratory rate 15 /min Navin Clark MD Work Phone: [employer] 06-11-2022 16:49-0400 SaO2% (BldA) [Mass fraction] 98 % Navin Clark MD Work Phone: [facility] 06-11-2022 16:49-0400 Systolic blood pressure 142 mm[Hg] Navin Clark MD Work Phone: [facility] 06-09-2022 10:43-0400 Body height 154.9 cm Navin Clark MD Work Phone: [facility] 06-09-2022 10:43-0400 Body mass index (BMI) [Ratio] 42.61 kg/m2 Navin Clark MD Work Phone: [facility] 06-09-2022 10:43-0400 Body weight 102.29 kg Navin Clark MD Work Phone: [facility] 05-02-2022 14:15-0500 Body height 157.5 cm Dennis Lomas MD Work Phone: [facility] 05-02-2022 14:15-0500 Body temperature 97.2 [degF] Dennis Lomas MD Work Phone: [facility] 05-02-2022 14:15-0500 Body weight 101.42 kg Dennis Lomas MD Work Phone: [facility] 05-02-2022 14:15-0500 Diastolic blood pressure 74 mm[Hg] Dnenis Lomas MD Work Phone: [facility] 05-02-2022 14:15-0500 Heart rate 94 /min Dennis Lomas MD Work Phone: [facility] 05-02-2022 14:15-0500 Respiratory rate 16 /min Dennis Lomas MD Work Phone: [facility] 05-02-2022 14:15-0500 SaO2% (BldA) [Mass fraction] 97 % Dennis Lomas MD Work Phone: [facility] 05-02-2022 14:15-0500 Systolic blood pressure 149 mm[Hg] Dennis Lomas MD Work Phone: [facility] 02-28-2022 14:39-0500 Body height 157.5 cm Dennis Lomas MD Work Phone: [facility] 02-28-2022 14:39-0500 Body temperature 97.11 [degF] Dennis Lomas MD Work Phone: [facility] 02-28-2022 14:39-0500 Body weight 100.7 kg Dennis Lomas MD Work Phone: [facility] 02-28-2022 14:39-0500 Diastolic blood pressure 72 mm[Hg] Dennis Lomas MD Work Phone: [facility] 02-28-2022 14:39-0500 Heart rate 85 /min Dennis Lomas MD Work Phone: [facility] 02-28-2022 14:39-0500 Respiratory rate 16 /min Dennis Lomas MD Work Phone: [facility] 02-28-2022 14:39-0500 SaO2% (BldA) [Mass fraction] 96 % Dennis Lomas MD Work Phone: [facility] 02-28-2022 14:39-0500 Systolic blood pressure 147 mm[Hg] Dennis Lomas MD Work Phone: [facility] 02-19-2022 14:17-0500 Body height 157.5 cm Navin Clark MD Work Phone: [facility] 02-19-2022 14:17-0500 Body mass index (BMI) [Ratio] 41.26 kg/m2 Navin Clark MD Work Phone: [facility] 02-19-2022 14:17-0500 Body temperature 96.69 [degF] Navin Clark MD Work Phone: [facility] 02-19-2022 14:17-0500 Body weight 102.33 kg Navin Clark MD Work Phone: [facility] 01-02-2022 14:25-0400 Body height 157.5 cm Navin Clark MD Work Phone: [facility] [email or web address] [facility] 01-02-2022 14:25-0400 Body mass index (BMI) [Ratio] 42.07 kg/m2 Navin Clark MD Work Phone: [facility] [email or web address] [facility] 01-02-2022 14:25-0400 Body temperature 96.6 [degF] Navin Clark MD Work Phone: [facility] [email or web address] [facility] 01-02-2022 14:25-0400 Body weight 104.33 kg Navin Clark MD Work Phone: [employer] 10-24-2021 15:00-0400 Body height 158.75 cm Curtis Watkins Other [employer] Other 10-24-2021 15:00-0400 Body mass index (BMI) [Ratio] 41.39 kg/m2 Curtis Watkins Other [employer] Other 10-24-2021 15:00-0400 Body weight 104.33 kg Curtis Watkins Other [employer] Other 09-26-2021 13:20-0400 Body height 158.75 cm Odell Karen Other [employer] Other 09-26-2021 13:20-0400 Body mass index (BMI) [Ratio] 41.54 kg/m2 Odell Karen Other [employer] Other 09-26-2021 13:20-0400 Body temperature 97.6 [degF] Odell Karen Other [employer] Other 09-26-2021 13:20-0400 Body weight 104.69 kg Odell Karen Other [employer] Other 09-26-2021 13:20-0400 Diastolic blood pressure 80 mm[Hg] Odell Karen Other [employer] Other 09-26-2021 13:20-0400 Respiratory rate 18 /min Odell Karen Other [employer] Other 09-26-2021 13:20-0400 SaO2% (BldA) [Mass fraction] 97 % Odell Karen Other [employer] Other 09-26-2021 13:20-0400 Systolic blood pressure 146 mm[Hg] Odell Karen Other [employer] Other 02-21-2021 13:40-0500 Body height 158.75 cm Odell Karen Other [employer] Other 02-21-2021 13:40-0500 Body mass index (BMI) [Ratio] 43.79 kg/m2 Odell Karen Other [employer] Other 02-21-2021 13:40-0500 Body temperature 97.2 [degF] Odell Karen Other [employer] Other 02-21-2021 13:40-0500 Body weight 110.36 kg Odell Karen Other [employer] Other 02-21-2021 13:40-0500 Diastolic blood pressure 74 mm[Hg] Odell Karen Other [employer] Other 02-21-2021 13:40-0500 Respiratory rate 18 /min Odell Karen Other [employer] Other 02-21-2021 13:40-0500 SaO2% (BldA) [Mass fraction] 96 % Odell Karen Other [employer] Other 02-21-2021 13:40-0500 Systolic blood pressure 136 mm[Hg] Odell Karen Other [employer] Other 12-17-2020 12:15-0400 Body height 158.75 cm Malina Ginty Other [employer] Other 12-17-2020 12:15-0400 Body mass index (BMI) [Ratio] 43.73 kg/m2 Malina Ginty Other [employer] Other 12-17-2020 12:15-0400 Body temperature 97.3 [degF] Malina Ginty Other [employer] Other 12-17-2020 12:15-0400 Body weight 110.22 kg Malina Ginty Other [employer] Other 12-17-2020 12:15-0400 SaO2% (BldA) [Mass fraction] 95 % Malina Ginty Other [employer] Other Encounters Encounter Date Encounter Type Care Provider Facility Start: 09-09-2023 End: 09-10-2023 Evaluation and management of inpatient GUIDO Rogers [facility] Start: 08-24-2023 End: 08-24-2023 ambulatory [facility] Start: 08-24-2023 End: 08-24-2023 ambulatory [facility] Start: 08-20-2023 End: 08-20-2023 ambulatory [facility] Work Phone: Start: 08-20-2023 End: 08-20-2023 Patient encounter procedure [facility] Work Phone: Start: 07-22-2023 End: 07-22-2023 ambulatory [facility] Start: 07-16-2023 ambulatory VITA MADELYN [facility] Start: 07-16-2023 End: 07-16-2023 Office outpatient visit 25 minutes Vita Joshi CANINE SERVICE INSTRUCTOR TRAINER-LEGAL PRACTICE MANAGER Work Phone: [facility] Comment on above: Hx of total knee art hroplasty, right (Primary Dx) Start: 07-16-2023 End: 07-16-2023 Subsequent hospital visit by physician Vita Joshi APRN-LEGAL PRACTICE MANAGER Work Phone: [facility] Start: 06-08-2023 [facility] Start: 12-16-2022 End: 12-16-2022 ambulatory Odell Karen Other [employer] Other Start: 12-16-2022 Office outpatient vi sit 25 minutes Odell Karen [facility] Start: 12-15-2022 End: 12-15-2022 ambulatory [facility] Start: 10-09-2022 ambulatory [facility] Start: 10-09-2022 End: 10-09-2022 Subsequent hospital visit by physician Navin Clark MD Work Phone: [facility] Start: 09-22-2022 End: 09-22-2022 ambulatory [facility] Start: 09-03-2022 ambulatory [facility] Start: 09-03-2022 End: 09-03-2022 Postop follow up visit related to original px Vita Joshi APRN-LEGAL PRACTICE MANAGER Work Phone: [facility] Comment on above: Hx of total knee art hroplasty, right (Primary Dx) Start: 09-03-2022 End: 09-03-2022 Subsequent hospital visit by physician Navin Clark MD Work Phone: [facility] Start: 07-30-2022 ambulatory SELF SELF [facility] Start: 07-30-2022 End: 07-30-2022 Postop follow up visit related to original px Vita Joshi CANINE SERVICE INSTRUCTOR TRAINER-LEGAL PRACTICE MANAGER Work Phone: [facility] Comment on above: Hx of total knee art hroplasty, right (Primary Dx) Start: 07-09-2022 End: 07-09-2022 Postop follow up visit related to original px Vita oJshi CANINE SERVICE INSTRUCTOR TRAINER-LEGAL PRACTICE MANAGER Work Phone: [facility] Comment on above: Hx of total knee art hroplasty, right (Primary Dx) Start: 06-25-2022 End: 06-25-2022 Postop follow up visit related to original px Jerilyn Ronan Baig Work Phone: [facility] Comment on above: Hx of total knee art hroplasty, right (Primary Dx) Start: 06-09-2022 End: 06-11-2022 Evaluation and management of inpatient Navin Clark MD Work Phone: [facility] Comment on above: Benign hypertension Start: 06-09-2022 End: 06-11-2022 Patient encounter status Navin Clark MD Work Phone: [facility] Start: 05-29-2022 End: 05-30-[address] DOCTOR NAVARRETE Facility:[facility] Start: 05-28-2022 End: 05-29-2022 ambulatory ODELL JONES Facility:[facility] Start: 05-02-2022 End: 05-02-2022 ambulatory DENNIS LOMAS Facility:[facility] Start: 05-02-2022 End: 05-02-2022 Office outpatient visit 15 minutes Dennis Lomas MD Work Phone: Hematology/Oncology Comment on above: Bandemia (Primary Dx ) Start: 03-11-2022 ambulatory [facility] Start: 03-11-2022 End: 03-11-2022 Subsequent hospital visit by physician Vita BHAT Work Phone: [facility] Comment on above: Arrived Start: 03-10-2022 ambulatory [facility] Start: 02-28-2022 End: 02-28-2022 ambulatory Dennis Lomas MD Work Phone: Hematology/Oncology Comment on above: Bandemia (Primary Dx ); Chronic obstructive pulmonary disease, unspecified COPD type (HCC); Macrocytosis without anemia Start: 02-28-2022 End: 02-28-2022 Patient encounter procedure Dennis Lomas MD Work Phone: [facility] Start: 02-27-2022 End: 02-28-[address] DOMINIC CARDENAS Facility: Start: 02-25-2022 Chart abstracting Dennis espinal MD Work Phone: Hematology/Oncology Start: 02-19-2022 End: 02-19-2022 Office outpatient visit 40 minutes Navin Clark MD Work Phone: [facility] Comment on above: Pain in prosthetic j oint, sequela (Primary Dx) Start: 02-17-2022 End: 02-18-2022 ambulatory ODELL JONES Facility:[facility] Start: 01-27-2022 End: 01-28-[address] PATRICK ODOM Facility:[facility] Start: 01-02-2022 End: 01-02-2022 Office outpatient new 30 minutes Navin Clark MD Work Phone: [facility] Comment on above: Pain in prosthetic j oint, sequela (Primary Dx) Start: 01-02-2022 End: 01-02-2022 Subsequent hospital visit by physician Navin Clark MD Work Phone: [facility] Start: 12-14-2021 End: 12-14-2021 Emergency department patient visit Jignesh He Facility:[facility] Start: 12-14-2021 End: 12-15-2021 ambulatory Jignesh Ronan Neri Facility:[facility] Start: 12-06-2021 Encounter for preprocedural laboratory examination DR ZINA CRAWFORD [facility] Start: 12-03-2021 End: 12-03-[address] ZINA CRAWFORD Facility:[facility] Start: 11-30-2021 End: 12-01-[address] ZINA CRAWFORD Facility:[facility] Start: 11-30-2021 End: 12-01-2021 Encounter for preprocedural laboratory examination DR ZINA CRAWFORD Facility:[facility] Start: 11-26-2021 End: 11-26-2021 ambulatory Odell Karen Other [employer] Other Start: 11-26-2021 Telephone encounter Odell Karen [facility] Start: 11-21-2021 End: 11-21-[address] IRWIN JACQUES . Facility:[facility] Start: 11-04-2021 End: 11-05-[address] PATRICK ODOM Facility:[facility] Start: 11-01-2021 End: 11-02-2021 ambulatory MOHAMUD SUSI . Facility:[facility] Start: 10-24-2021 End: 10-24-2021 ambulatory Curtis Watkins Other [employer] Other Start: 10-24-2021 Office outpatient ne w 30 minutes Curtis Watkins [facility] Start: 10-03-2021 End: 12-23-2021 ambulatory CHRIS MOLINA Facility:[facility] Start: 10-02-2021 End: 10-24-[address] DOCTOR NAVARRETE Facility:[facility] Start: 09-27-2021 End: 09-27-2021 ambulatory MOHAMUD SUSI . Facility:[facility] Start: 09-26-2021 End: 09-27-2021 ambulatory ODELL KAREN [facility] [employer] Other Start: 09-26-2021 Office outpatient vi sit 25 minutes Odell Karen [facility] [place] Start: 09-19-2021 End: 09-19-2021 ambulatory ODELL KAREN Facility:[facility] Start: 09-19-2021 End: 09-20-2021 ambulatory CHRIS JESSE Facility:[facility] Start: 09-16-2021 End: 09-17-2021 ambulatory ODELL KAREN Facility:[facility] Start: 09-13-2021 End: 09-14-[address] PATRICK ODOM Facility:[facility] Start: 08-30-2021 End: 08-30-2021 ambulatory MOHAMUD SUSI . Facility:[facility] Start: 08-16-2021 End: 08-17-2021 ambulatory CHRIS JESSE Facility:[facility] Start: 08-16-2021 End: 08-17-2021 ambulatory MOHAMUD SUSI . Facility:[facility] Start: 07-23-2021 End: 07-24-[address] OLIVIA FATIMA Facility:[facility] Start: 02-21-2021 End: 02-21-2021 ambulatory Odell Karen Other [employer] Other Start: 02-21-2021 Office outpatient vi sit 25 minutes Odell Karen [facility] [place] Start: 12-17-2020 Office outpatient vi sit 15 minutes Malina Ginty [facility] [place] Start: 10-21-2016 End: 10-22-2016 Ambulatory DEFAULT PHYSICIAN Facility:[facility] Procedures Date Procedure Procedure Detail Performing Clinician Start: 12-31-2022 Adult depression scr eening assessment Nati Cueva CMA Start: 06-11-2022 Complete blood count with white cell differential, automated Jerilyn Baig Work Phone: Start: 06-11-2022 Renal function panel Jannet Henderson MD Work Phone: Start: 06-10-2022 Sars-cov-2 detection by dna/rna Vita BHAT Work Phone: Start: 06-10-2022 Renal function panel [...] hole body single day imaging Vita Joshi CANINE SERVICE INSTRUCTOR TRAINER-LEGAL PRACTICE MANAGER Work Phone: Start: 02-19-2022 Arthrocentesis aspir &/inj major jt/bursa w/o us Navin Clark MD Work Phone: Plan of Treatment Date Care Activity Detail Author Start: 05-02-2025 DIABETES SCREEN DIABETES SCREEN [facility] Start: 01-01-2024 Adult BMI Screening Adult BMI Screen ing [facility] Start: 01-01-2024 Depression Screening Depression Scre ening [facility] Start: 01-01-2024 Fall Risk Screening Fall Risk Screen ing [facility] Start: 01-01-2024 Tobacco Screening Tobacco Screening [facility] Start: 09-29-2023 End: 09-29-2023 Patient encounter procedure 09/29/2023 2:00 PM EDT Office Visit [facility] - [facility] Medicine [address] [place] [id number] [facility] - Family [facility] Start: 09-19-2023 Medicare Annual Well ness Visit Medicare Annual Wellness Visit [facility] Start: 06-12-2023 Potassium [Moles/vol ume] in Serum or Plasma POTASSIUM [facility] Start: 06-03-2023 End: 06-03-2023 Patient encounter procedure [facility] Start: 11-21-2022 Influenza vaccination A [facility] Start: 10-09-2022 End: 10-09-2022 Patient encounter procedure [facility] Start: 09-03-2022 End: 09-03-2022 Patient encounter procedure 09/03/2022 Office Visit Orthopaedics Vita Joshi, CANINE SERVICE INSTRUCTOR TRAINER-LEGAL PRACTICE MANAGER [address] [place] [address] [facility] Start: 07-30-2022 End: 07-30-2022 Patient encounter procedure 07/30/2022 Office Visit Orthopaedics Christina Joshid, CANINE SERVICE INSTRUCTOR TRAINER-LEGAL PRACTICE MANAGER [address] [place] [address] [facility] Start: 07-25-2022 End: 09-24-2022 C reactive protein [Mass/volume] in Serum or Plasma C-REACTIVE PROTEIN (CRP) Lab Routine Bandemia Expected: 07/25/2022 (Approximate), Expires: 09/24/2022 [facility] Work Phone: Comment on above: Expected: 07/25/2022 (Approximate), Expires: 09/24/2022 Start: 07-25-2022 End: 05-02-2023 CBC W Auto Differential panel - Blood CBC + DIFF Lab Routine Bandemia Expected: 07/25/2022 (Approximate), Expires: 05/02/2023 [facility] Work Phone: Comment on above: Expected: 07/25/2022 (Approximate), Expires: 05/02/2023 Start: 07-25-2022 End: 05-02-2023 Comprehensive metabolic 2000 panel - Serum or Plasma COMP METABOLIC PANEL Lab Routine Bandemia Expected: 07/25/2022 (Approximate), Expires: 05/02/2023 [facility] Work Phone: Comment on above: Expected: 07/25/2022 (Approximate), Expires: 05/02/2023 Start: 07-25-2022 End: 09-24-2022 Erythrocyte sedimentation rate SED RATE WESTERGREN Lab Routine Bandemia Expected: 07/25/2022 (Approximate), Expires: 09/24/2022 [facility] Work Phone: Comment on above: Expected: 07/25/2022 (Approximate), Expires: 09/24/2022 Start: 07-25-2022 End: 05-02-2023 Lactate dehydrogenase [Enzymatic activity/volume] in Serum or Plasma LD LACTATE DEHYDRO Lab Routine Bandemia Expected: 07/25/2022 (Approximate), Expires: 05/02/2023 [facility] Work Phone: Comment on above: Expected: 07/25/2022 (Approximate), Expires: 05/02/2023 Start: 07-25-2022 End: 09-24-2022 Urate [Mass/volume] in Serum or Plasma URIC ACID BLOOD Lab Routine Bandemia Expected: 07/25/2022 (Approximate), Expires: 09/24/2022 [facility] Work Phone: Comment on above: Expected: 07/25/2022 (Approximate), Expires: 09/24/2022 Start: 07-09-2022 End: 07-09-2022 Patient encounter procedure 07/09/2022 Office Visit Orthopaedics Vita Joshi, SHIVANI-ADONIS [address] [place] [address] [facility] Start: 06-25-2022 End: 06-25-2022 Patient encounter procedure 06/25/2022 Office Visit Orthopaedics Jerilyn Baig [address] [place] [address] [facility] Start: 05-15-2022 End: 05-15-2022 ambulatory 05/15/2022 Pre-Operative Nurse Assessment Internal Medicine [facility] Pre Admission Start: 05-01-2022 End: 07-01-2022 C reactive protein [Mass/volume] in Serum or Plasma C-REACTIVE PROTEIN (CRP) Lab Routine Macrocytosis without anemia Expected: 05/01/2022 (Approximate), Expires: 07/01/2022 [facility] Work Phone: Comment on above: Expected: 05/01/2022 (Approximate), Expires: 07/01/2022 Start: 05-01-2022 End: 02-28-2023 CBC W Auto Differential panel - Blood CBC + DIFF Lab Routine Macrocytosis without anemia Expected: 05/01/2022 (Approximate), Expires: 02/28/2023 [facility] Work Phone: Comment on above: Expected: 05/01/2022 (Approximate), Expires: 02/28/2023 Start: 05-01-2022 End: 02-28-2023 Cobalamin (Vitamin B12) [Mass/volume] in Serum or Plasma VITAMIN B12 BLOOD Lab Routine Macrocytosis without anemia Expected: 05/01/2022 (Approximate), Expires: 02/28/2023 [facility] Work Phone: Comment on above: Expected: 05/01/2022 (Approximate), Expires: 02/28/2023 Start: 05-01-2022 End: 02-28-2023 Comprehensive metabolic 2000 panel - Serum or Plasma COMP METABOLIC PANEL Lab Routine Macrocytosis without anemia Expected: 05/01/2022 (Approximate), Expires: 02/28/2023 [facility] Work Phone: Comment on above: Expected: 05/01/2022 (Approximate), Expires: 02/28/2023 Start: 05-01-2022 End: 07-01-2022 Erythrocyte sedimentation rate SED RATE WESTERGREN Lab Routine Macrocytosis without anemia Expected: 05/01/2022 (Approximate), Expires: 07/01/2022 [facility] Work Phone: Comment on above: Expected: 05/01/2022 (Approximate), Expires: 07/01/2022 Start: 05-01-2022 End: 02-28-2023 Ferritin [Mass/volume] in Serum or Plasma FERRITIN BLD Lab Routine Macrocytosis without anemia Expected: 05/01/2022 (Approximate), Expires: 02/28/2023 [facility] Work Phone: Comment on above: Expected: 05/01/2022 (Approximate), Expires: 02/28/2023 Start: 05-01-2022 End: 02-28-2023 Folate [Mass/volume] in Serum or Plasma FOLATE SERUM Lab Routine Macrocytosis without anemia Expected: 05/01/2022 (Approximate), Expires: 02/28/2023 [facility] Work Phone: Comment on above: Expected: 05/01/2022 (Approximate), Expires: 02/28/2023 Start: 05-01-2022 End: 02-28-2023 Iron and Iron binding capacity panel - Serum or Plasma IRON + TIBC Lab Routine Macrocytosis without anemia Expected: 05/01/2022 (Approximate), Expires: 02/28/2023 [facility] Work Phone: Comment on above: Expected: 05/01/2022 (Approximate), Expires: 02/28/2023 Start: 05-01-2022 End: 07-01-2022 Lactate dehydrogenase [Enzymatic activity/volume] in Serum or Plasma LD LACTATE DEHYDRO Lab Routine Macrocytosis without anemia Expected: 05/01/2022 (Approximate), Expires: 07/01/2022 [facility] Work Phone: Comment on above: Expected: 05/01/2022 (Approximate), Expires: 07/01/2022 Start: 03-23-2022 ADVANCE DIRECTIVE DISCUSSION ADVANCE DIRECTIVE DISCUSSION [facility] Start: 03-23-2022 DEPRESSION ASSESSMENT DEPRESSION ASS ESSMENT [facility] Start: 02-19-2022 End: 02-19-2022 Patient encounter procedure 02/19/2022 Office Visit Orthopaedics Navin Clark MD [address] [place] [address] [facility] Start: 11-21-2021 Influenza vaccination A [facility] Start: 03-23-2021 ADVANCE DIRECTIVE DISCUSSION ADVANCE DIRECTIVE DISCUSSION [facility] Start: 03-23-2021 DEPRESSION ASSESSMENT DEPRESSION ASS ESSMENT [facility] Start: 12-22-2021 COVID-19 VACCINE (5 - Booster for Moderna series) COVID-19 VACCINE (5 - Booster for Moderna series) [facility] Start: 03-24-2019 DTaP,Tdap and Td Vaccines (2 - Td or Tdap) DTaP,Tdap and Td Vaccines (2 - Td or Tdap) [facility] Start: 03-24-2019 Tetanus vaccination TETANUS [facility] Start: 10-17-2017 Pneumococcal vaccination PNEUM OCOCCAL VACCINE SERIES (2 - PPSV23 if available, else PCV20) [facility] Start: 06-27-2016 BONE DENSITY BONE DENSITY [facility] Start: 06-27-2016 PNEUMOCOCCAL: 65+ (1 - PCV) PNEUMOCOCCAL: 65+ (1 - PCV) [facility] Start: 06-27-2001 Administration of varicella zoster vaccine Zoster (Shingles) Vaccine (1 of 2) [facility] Start: 06-27-2001 Influenza vaccination LUNG CANCER SC REENING [facility] Start: 06-27-2001 SHINGRIX VACCINE (1 of 2) SHINGRIX VACCINE (1 of 2) [facility] Start: 06-27-2001 Zoster vaccine hzv l chris for subcutaneous use ZOSTER (SHINGLES) VACCINE (1 of 2) [facility] Start: 06-27-1996 COLOGUARD (FIT-DNA) COLOGUARD (FIT-D NA) [facility] Start: 06-27-1996 Colonoscopy COLONOSCOPY [facility] Start: 06-27-1996 COLORECTAL CANCER SCREENING COLORECTAL CANCER SCREENING [facility] Start: 06-27-[address] COLONOGRAPHY [facility] Start: 06-27-1996 DIABETES SCREEN DIABETES SCREEN [facility] Start: 06-27-1996 FECAL OCCULT BLOOD FECAL OCCULT BLOO D [facility] Start: 06-27-1996 LIPID SCREEN LIPID SCREEN [facility] Start: 06-27-1996 Screening for malign ant neoplasm of colon COLORECTAL CANCER SCREENING DISCUSSION [facility] Start: 06-27-1996 SIGMOIDOSCOPY SIGMOIDOSCOPY [facility] Start: 1991 Lipid panel LIPID SCREENING [facility] Start: 1991 Mammography MAMMOGRAM [facility] Start: 1991 Screening for malign ant neoplasm of breast MAMMOGRAM SCREENING DISCUSSION [facility] Start: 06-27-1972 Screening for malign ant neoplasm of cervix CERVICAL CANCER SCREENING DISCUSSION [facility] Start: 06-27-1970 Urine microalbumin profile DTAP,TDAP,TD (1 - Tdap) [facility] Start: 06-27-1969 Adult BMI Follow Up Plan Adult BMI Follow Up Plan [facility] Start: 06-27-1969 HEPATITIS C SCREENING HEPATITIS C SC REENING [facility] Start: 06-27-1957 Pneumococcal vaccination PNEUM OCOCCAL VACCINE SERIES (1 - PCV) [facility] Start: 1951 COVID-19 VACCINE (#1) COVID-19 VACCI NE (#1) [facility] Start: 1951 Hepatitis B vaccination HEP B VACCINE (1 of 3 - 3-dose series) [facility] Start: 1951 Hepatitis C screening HEPATITI S C VIRUS SCREENING [facility] Start: 1950 Potassium [Moles/vol ume] in Serum or Plasma POTASSIUM [facility] Start: 1951 Screening for osteoporosis DEXA SCAN DISCUSSION [facility] ANAEROBE CULTURE ANAEROBE CULTUR E Microbiology Routine Other mechanical complication of internal right knee prosthesis, initial encounter Release Upon Ordering for 1 Occurrences starting 06/09/2022 [facility] Comment on above: Release Upon Orderin g for 1 Occurrences starting 06/09/2022 ANAEROBE CULTURE ANAEROBE CULTUR E Microbiology Routine 06/09/2022 2:10 PM EDT [facility] Bacteria identified in Body fluid by Culture BODY FLUID CULTURE AND DIRECT SMEAR Microbiology [facility] in Unspecified specimen by Culture BACTERIAL CULTURE AND DIRECT SMEAR, LESION, TISSUE, DEVICE Microbiology Routine Other mechanical complication of internal right knee prosthesis, initial encounter Release Upon Ordering for 1 Occurrences starting 06/09/2022 [facility] Comment on above: Release Upon Orderin g for 1 Occurrences starting 06/09/2022 Fungus identified in Unspecified specimen by Culture FUNGUS CULTURE Microbiology Routine Other mechanical complication of internal right knee prosthesis, initial encounter Release Upon Ordering for 1 Occurrences starting 06/09/2022 [facility] Comment on above: Release Upon Orderin g for 1 Occurrences starting 06/09/2022 Fungus identified in Unspecified specimen by Culture FUNGUS CULTURE Microbiology Routine 06/09/2022 2:10 PM EDT [facility] Mycobacterium sp identified in Unspecified specimen by Organism specific culture ACID FAST CULTURE Microbiology Routine Other mechanical complication of internal right knee prosthesis, initial encounter Release Upon Ordering for 1 Occurrences starting 06/09/2022 [facility] Comment on above: Release Upon Orderin g for 1 Occurrences starting 06/09/2022 Mycobacterium sp identified in Unspecified specimen by Organism specific culture ACID FAST CULTURE Microbiology Routine 06/09/2022 2:10 PM EDT [facility] Radiography for bone length studies XR BONE LENGTH STUDY Imaging Routine Pain in prosthetic joint, sequela 01/02/2022 2:10 PM EDT [facility] Radiography for bone length studies XR BONE LENGTH STUDY Imaging Routine Hx of total knee arthroplasty, right 10/09/2022 1:20 PM [employer] Work Phone: Renal function 2000 panel - Serum or Plasma [facility] TISSUE CULTURE TISSUE CULTURE Microbiology Routine 06/09/2022 2:10 PM EDT [employer] XR Knee - right 2 Views XR KNEE RIGHT 2 VIEWS Imaging Routine Pain in prosthetic joint, sequela 02/19/2022 2:12 PM EST [facility] XR Knee - right 2 Views XR KNEE RIGHT 2 VIEWS Imaging Routine Hx of total knee arthroplasty, right 06/25/2022 12:41 PM EDT [facility] XR Knee - right 2 Views XR KNEE RIGHT 2 VIEWS Imaging Routine Hx of total knee arthroplasty, right 07/09/2022 9:14 AM EDT [facility] XR Knee - right 2 Views XR KNEE RIGHT 2 VIEWS Imaging Routine Hx of total knee arthroplasty, right 07/30/2022 1:35 PM EDT [facility] XR Knee - right 3 Views XR KNEE RIGHT 3 VIEWS Imaging Routine Pain in prosthetic joint, sequela 01/02/2022 2:10 PM EDT [employer] [facility] Work Phone: XR Knee - right 3 Views XR KNEE RIGHT 3 VIEWS Imaging Routine Hx of total knee arthroplasty, right Ordered: 06/27/2022 [facility] Comment on above: Ordered: 06/27/2022 XR Knee - right 3 Views XR KNEE RIGHT 3 VIEWS Imaging Routine Hx of total knee arthroplasty, right 09/03/2022 1:33 PM [employer] Work Phone: XR Knee - right 3 Views XR KNEE RIGHT 3 VIEWS Imaging Routine Hx of total knee arthroplasty, right 10/09/2022 1:20 PM EDT [facility] XR Knee - right 3 Views XR KNEE RIGHT 3 VIEWS Imaging Routine Hx of total knee arthroplasty, right 07/16/2023 1:45 PM EDT [facility] Work Phone: [facility] Immunizations Immunization Date Immunization Notes Care Provider Fa lachelle 02-02-2023 Influenza Vaccine, Quadrivalent, Adjuvanted Nati [facility] 11-19-2022 Pneumococcal Conjuga te 20-valent Nati [facility] 11-19-2022 RSV, recombinant, protein subunit RSVpreF, adjuvant reconstituted, 0.5 mL, PF Nati [facility] 01-03-2021 Influenza, High-dose , Quadrivalent Nati [facility] 01-03-2021 influenza virus vaccine, unspecified formulation Navin Clark MD Work Phone: [facility] 06-21-2020 COVID-19, mRNA, LNP- S, PF, 100mcg/0.5mL Dose Nati [facility] 05-22-2020 COVID-19, mRNA, LNP- S, PF, 100mcg/0.5mL Dose Nati [facility] 01-25-2020 Influenza Vaccine, Quadrivalent, Adjuvanted Nati [facility] 03-24-2009 tetanus toxoid, redu eloisa diphtheria toxoid, and acellular pertussis vaccine, adsorbed [facility] Payers Date Payer Category Payer Medicare [id number] 2015 Unknown 1959 Unknown [id number] 1950 Unknown [id number] 2.16.84 0.1.980330.3.579.2.718 1950 Unknown [id number] 2.16.84 0.1.514793.3.579.2.8 1950 Unknown [id number] 2.16.8 40.1.476383.3.579.2.983 1950 Unknown [id number] 2.16.8 40.1.445282.3.579.2.983 1950 Unknown [id number] 2.16.8 40.1.213265.3.579.2.983 1951 Unknown [id number] 2.16.84 0.1.421951.3.579.2.593 1951 Unknown [id number] 2.16.84 0.1.771490.3.579.2.593 1951 Unknown [id number] 2.16.84 0.1.244102.3.579.2.593 1951 Unknown [id number] 2.16.84 0.1.691065.3.579.2.593 1951 Unknown [id number] 2.16.84 0.1.388716.3.579.2.593 1951 Unknown [id number] 2.16.84 0.1.148814.3.579.2.593 1951 Unknown [id number] 2.16.84 0.1.553008.3.579.2.593 1951 Unknown [id number] 2.16.84 0.1.545505.3.579.2.593 1951 Unknown [id number] 2.16.84 0.1.552147.3.579.2.593 1951 Unknown [id number] 2.16.84 0.1.480749.3.579.2.593 1951 Unknown [id number] 2.16.84 0.1.090571.3.579.2.593 1951 Unknown [id number] 2.16.84 0.1.003988.3.579.2.593 1951 Unknown [id number] 2.16.84 0.1.815712.3.579.2.593 1951 Unknown [id number] 2.16.84 0.1.538095.3.579.2.593 1951 Unknown [id number] 2.16.84 0.1.844541.3.579.2.593 1951 Unknown [id number] 2.16.84 0.1.714586.3.579.2.593 1951 Unknown [id number] 2.16.84 0.1.371432.3.579.2.593 1951 Unknown [id number] 2.16.84 0.1.576665.3.579.2.593 1951 Unknown [id number] 2.16.84 0.1.671438.3.579.2.593 1951 Unknown [id number] 2.16.84 0.1.844744.3.579.2.593 1951 Unknown [id number] 2.16.84 0.1.584515.3.579.2.593 1951 Unknown [id number] 2.16.84 0.1.665739.3.579.2.593 1951 Unknown [id number] 2.16.84 0.1.294664.3.579.2.593 1951 Unknown [id number] 2.16.84 0.1.930660.3.579.2.593 1951 Unknown [id number] 2.16.84 0.1.234165.3.579.2.593 1951 Unknown [id number] 2.16.8 40.1.946039.3.579.2.983 1951 Unknown [id number] 2.16.8 40.1.108686.3.579.2.983 1951 Unknown [id number] 2.16.8 40.1.113119.3.579.2.983 1951 Unknown [id number] 2.16.8 40.1.974248.3.579.2.983 1951 Unknown [id number] 2.16.8 40.1.594866.3.579.2.983 1951 Unknown [id number] 2.16.8 40.1.808850.3.579.2.983 1951 Unknown [id number] 2.16.8 40.1.868275.3.579.2.983 1951 Unknown [id number] 2.16.8 40.1.174979.3.579.2.983 1951 Unknown [id number] 2.16.8 40.1.329079.3.579.2.1286 1951 Unknown [id number] 2.16.8 40.1.786645.3.579.2.1286 1951 Unknown [id number] 2.16.8 40.1.846365.3.579.2.1286 1951 Unknown [id number] 2.16.8 40.1.385912.3.579.2.1286 Medicare [id number] 2. 16.840.1.963872.19 Self-pay Self Pay [id number] Unknown O [id number] Social History Date Type Detail Facility Unknown if ever smoked [employer] Other Start: 09-03-2022 End: 07-16-2023 Sex Assigned At [facility] [email or web address] [facility] Start: 01-02-2022 Tobacco smoking status MOIS Smokes tobacco daily [facility] End: 02-07-2022 History of tobacco use Cigarette Smoker [facility] Start: 01-02-2022 End: 07-16-2023 Tobacco use and exposure Smokeless tobacco non-user [facility] Start: 01-02-2022 End: 07-16-2023 Alcohol intake Current drinker of alcohol (finding) [facility] Start: 01-02-2022 Alcohol Comment occasional [facility] Start: 1950 Sex Assigned At Not on file [facility] [email or web address] [facility] Start: 02-19-2022 End: 07-16-2023 Tobacco smoking status NHIS Ex-smoker [facility] Start: 08-20-2023 End: 02-07-2022 History of tobacco use Current smoker [facility] Tobacco smoking stat [facility] Tobacco smoking consumption unknown [facility] Start: 02-28-2022 End: 07-16-2023 Cigarettes smoked current (pack per day) - Reported 1 [facility] Start: 02-28-2022 End: 05-02-2022 Alcohol intake Ex-drinker (finding) [facility] Start: 05-30-2022 End: 06-09-2022 Exposure to SARS-CoV-2 (event) Not sure [facility] Start: 12-31-2022 Alcohol intake Defer [facility] Do you belong to any clubs or organizations such as moravian groups, unions, fraternal or athletic groups, or school groups? Yes [facility] Are you now , , , , never or living with a partner? [facility] How often to you hav e a drink containing alcohol? 2-4 times a month [facility] How many standard dr inks containing alcohol do you have on a typical day? Patient does not drink [facility] How often do you hav e 6 or more drinks on 1 occasion? Never [facility] Do you feel stress - tense, restless, nervous, or anxious, or unable to sleep at night because your mind is troubled all the time - these days [OSQ] Not at all [facility] Start: 1950 Sex Assigned At Female [facility] Medical Equipment Procedure Code Equipment Code Equipment Origin al Text Equipment Identifier Dates Attune Knee Syst em Revision Crs Rotating Platform Insert Size 3 16mm Aox [id number] Start: 06-09-2022 Palacos R & G Partha ne Cement High-Viscosity With Gentamicin - [id number] Start: 06-09-2022 Attune Knee Syst em Revision Distal Femoral Augment Size 3 4mm Cemented [id number] Start: 06-09-2022 Attune Knee Syst em Revision Distal Femoral Augment Size 3 4mm Cemented [id number] Start: 06-09-2022 Attune Knee Syst em Revision Offset Stem Adaptor 4mm [id number] Start: 06-09-2022 Moldable Demineralized Fibers [id number] Start: 06-09-2022 Comment on above: Description: ID: [id number] CODE:[id number] Palacos [employer] Partha ne Cement High-Viscosity With Gentamicin - [id number] Start: 06-09-2022 Palacos R [employer] G Partha ne Cement High-Viscosity With Gentamicin - [id number] Start: 06-09-2022 Attune Knee Syst em [...] 07-22-2023 Rebecca Lei - 07/16/2023 2:00 PM [facility] - 07/16/2023 2:00 PM EDT Note Date [...] All other systems reviewed and are negative. [facility] 07-16-2023 History of Present illness Narrative Ortho Nurse - Established Patient Intake Room#: 5 Date: 07/16/2023 1:50 PM Patient: Sd Rehman MR#: [id number] : 1950 Age: 73 y.o. 1yr R TKA Pt stated she has a couple of sore spots and is about 95% back to normal, has pain at times on the side of her knee that can get to a 6/10 Referring Physician: Navin Clark MD Insurance: Payor: MEDICARE ANTHEM HMO OR PPO / Plan: MEDICARE ANTHEM HMO OR PPO / Product Type: *No [...] DR Take 1 capsule by mouth daily. Xtwoyjmpazw-Dgnxrebug-Gwqkol (Trelegy Ellipta) 100-62.5-25 MCG/INH Aerosol Powder, breath [...] capsule by mouth daily., Disp: , Rfl: Njgapcoopbk-Chpzdovzz-Cqkjta (Trelegy Ellipta) 100-62.5-25 MCG/INH Aerosol Powder, breath [...] have reviewed the findings of the clinical decision support analyst and agree with their assessment. Ortho Nurse - Established Patient Intake Room#: 5 Date: 07/16/2023 1:50 PM Patient: Sd Rehman MR#: [id number] : 1950 Age: 73 y.o. 1yr R TKA Pt stated she has a couple of sore spots and is about 95% back to normal, has pain at times on the side of her knee that can get to a 08/30 Referring Physician: Navin Clark MD Insurance: Payor: MEDICARE ANTHEM HMO OR PPO / Plan: MEDICARE ANTHEM HMO OR PPO / Product Type: *No [...] DR Take 1 capsule by mouth daily. Mmbfnqoijhs-Pgpebfrug-Mdljqa (Trelegy Ellipta) 100-62.5-25 MCG/INH Aerosol Powder, breath [...] capsule by mouth daily., Disp: , Rfl: Ombfnlhswbo-Pfrtikhas-Qebfha (Trelegy Ellipta) 100-62.5-25 MCG/INH Aerosol Powder, breath [...] No Known Allergies. documented in this encounter [facility] 12-16-2022 Evaluation note Encounter Date Diagnosis Assessment [...] within the goal but has low Iron. [employer] Other 09-25-2023 NotePatient here for 2 mo follow up abnormal stress test and PAF. Denies chest pain, palpitations, SOB, and bleeding on Eliquis. She doesn't think she's taking metoprolol and she isn't sure why. 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 Review of Systems Musculoskeletal: Positive for arthritis and joint pain. 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 non-steroidal anti-inflammatories (nsaid) S/P [...] BY MOUTH EVERY DAY, Disp: , Rfl: oyvosmheioh-bzylmzdpp-sgjkleyf 100-62.5-25 mcg blister with device, Trelegy Ellipta 100 mcg-62.5 mcg-25 mcg powder for inhalation INHALE 1 PUFF EVERY DAY BY INHALATION ROUTE, Disp: , Rfl: folic acid (more content not included)...[facility] 09-22-2022 NoteCardiology Clinic Note Subjective Sd Rehman [...] Paroxysmal atrial fibrillation (CMS/HCC) Chronic rhinitis Claudication ([facility]/HCC) Closed fracture of upper end of right tibia with routine healing Hypertensive kidney disease with stage 3b chronic kidney disease (CMS/HCC) Hyponatremia Idiopathic chronic gout of multiple sites without tophus Morbid obesity (CMS/HCC) half-way (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 non-steroidal anti-inflammatories (nsaid) S/P [...] FOR BLOOD CLOT PREVENTION, Disp: , Rfl: wtipyblccov-exvpquzzh-lntojpci 100-62.5-25 mcg blister with device, Trelegy Ellipta [...] 20 mg tablet JAMEY (more content not included)...[facility]07-03-2023 NoteCardiology Clinic Note Subjective Sd Rehman is [...] multiple sites without tophus Morbid obesity (CMS/HCC) 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 Referring Physician: [...] OR KNEE REPLACEMENT Bilateral 2007 left in 2007 -right 2008---Dr. Crain APPENDECTOMY [...] mouth 2 times daily. 60 tablet 1 Kfnwnadxheh-Fbykotdsp-Mmdyeu (Trelegy Ellipta) 100-62.5-25 MCG/INH Aerosol Powder, breath [...] has No Known Allergies. * Vita Joshi APRN-LEGAL PRACTICE MANAGER - 09/03/2022 1:40 PM EDT SUBJECTIVE: Sd [...] 4- month appointment or sooner as needed. (DOC:[id number]) I have reviewed the findings of the clinical decision support analyst and agree with their assessment. Vita Joshi APRN-ADONIS Ortho Nurse - Established Patient Intake Room#: 5--1 month follow up for weight bearing statis. She is at 50 % weight bearing and has full ROM. She has been doing PT every day along with OT. She has no pain today. Her Right TKA was on 06-09-22. Date: 09/03/2022 1:45 PM Patient: Sd Rehman MR#: [id number] : 1950 Age: 72 y.o. Referring Physician: [...] mouth 2 times daily. 60 tablet 1 Saicupljmaq-Rjnroezdg-Djghfb (Trelegy Ellipta) 100-62.5-25 MCG/INH Aerosol Powder, breath [...] has No Known Allergies. [facility] History of Present illness Narrative* Rebecca Buckleyn - 07/30/2022 1:20 PM EDT Ortho Nurse - Established Patient Intake Room#: 5 Date: 07/30/2022 1:48 PM Patient: Sd Rehman MR#: [id number] : 1950 Age: 72 y.o. 7wk R [...] mouth 2 times daily. 60 tablet 1 Bgzttwcjxxd-Tvyodxzaq-Obvawc (Trelegy Ellipta) 100-62.5-25 MCG/INH Aerosol Powder, breath [...] 2 times daily., Disp: 60 tablet, Rfl:1 Ewcejisfgzv-Ejilghtwa-Sazccu (Trelegy Ellipta) 100-62.5-25 MCG/INH Aerosol Powder, breath [...] She has No Known Allergies. * Vita Joshi, CANINE SERVICE INSTRUCTOR TRAINER-LEGAL PRACTICE MANAGER - 07/30/2022 1:20 PM EDT SUBJECTIVE: Sd [...] pain. She is still residing in the alf. PHYSICAL EXAMINATION: GENERAL: She is alert, oriented, [...] any questions or concerns in the meantime. (DOC:[id number]) I have reviewed the findings of the clinical decision support analyst and agree with their assessment. Vita Joshi APRN-ADONIS Ortho Nurse - Established Patient Intake Room#: 5 Date: 07/30/2022 1:48 PM Patient: Sd Rehman MR#: [id number] : 1950 Age: 72 y.o. 7wk R [...] mouth 2 times daily. 60 tablet 1 Tyjktjdnfhx-Zxsjkkvod-Szlfug (Trelegy Ellipta) 100-62.5-25 MCG/INH Aerosol Powder, breath [...] 2 times daily., Disp: 60 tablet, Rfl:1 Lnqgbsuqnmp-Zqmodaczo-Veqtrd (Trelegy Ellipta) 100-62.5-25 MCG/INH Aerosol Powder, breath [...] has No Known Allergies. [facility] History of Present illness Narrative* Rebecca Odom - 07/09/2022 9:00 AM EDT Ortho Nurse - Established Patient Intake Room#: 4 Date: 07/09/2022 9:21 AM Patient: Sd Rehman MR#: [id number] : 1950 Age: 72 y.o. 4wk R TKA Pt stated she is doing ok and has at time a feeling of electric shock but denies any painat this time.0/10 on the pain scale. Pt was wearing her brace and in a wheelchair at the time of visit. Referring Physician: Self, Self Insurance: Payor: MEDICARE ANTH HMO OR PPO [...] mouth 2 times daily. 60 tablet 1 Jnxqpfjyjqq-Olreacdya-Tcjdvl (Trelegy Ellipta) 100-62.5-25 MCG/INH Aerosol Powder, breath [...] 2 times daily., Disp: 60 tablet, Rfl:1 Hvvxerktuna-Qpljxomgb-Hpnsuw (Trelegy Ellipta) 100-62.5-25 MCG/INH Aerosol Powder, breath [...] has No Known Allergies. * Vita Joshi APRN-ADONIS - 07/09/2022 9:00 AM EDT SUBJECTIVE: Sd [...] that time and slow advance as needed. (DOC:[id number]) I have reviewed the findings of the clinical decision support analyst and agree with their assessment. Vita Joshi APRN-LEGAL PRACTICE MANAGER Ortho Nurse - Established Patient Intake Room#: 4 Date: 07/09/2022 9:21 AM Patient: Sd Rehman MR#: [id number] : 1950 Age: 72 y.o. 4wk R [...] mouth 2 times daily. 60 tablet 1 Lufdgksfrug-Vxuurjxpj-Ahauux (Trelegy Ellipta) 100-62.5-25 MCG/INH Aerosol Powder, breath [...] 2 times daily., Disp: 60 tablet, Rfl:1 Odsywkalmho-Nrqztzgkw-Whwqbv (Trelegy Ellipta) 100-62.5-25 MCG/INH Aerosol Powder, breath [...] has No Known Allergies. [facility] History of Present illness Narrative* Rebecca Odom - 06/25/2022 1:00 PM EDT Ortho Nurse - Established Patient Intake Room#: 4 Date: 06/25/2022 1:01 PM Patient: Sd Rehman MR#: [id number] : 1950 Age: 71 y.o. 2wk R TKA Pt stated some days she has shooting pain that goes away, stated her pain today is a 2/10on the pain scale. Pt was wearing her van hose and in a brace & in a wheelchair at the time of visit. Referring Physician: Vita Joshi APRN-CNP Insurance: Payor: MEDICARE ANTHEM HMO OR PPO / Plan: MEDICARE [employer] HMO OR PPO / Product Type: *NoProduct [...] mouth 2 times daily. 60 tablet 1 Vgyerkewxya-Lyoonldfv-Bvqmkv (Trelegy Ellipta) 100-62.5-25 MCG/INH Aerosol Powder, breath [...] 2 times daily., Disp: 60 tablet, Rfl:1 Tunihjszgmv-Ckqexgneu-Lfdwei (Trelegy Ellipta) 100-62.5-25 MCG/INH Aerosol Powder, breath [...] to date. She iscurrently residing [facility] where she is receiving PT/OT daily. She [...] dehiscence, jonah were removed by staff at [facility]. There is area of bruising to the [...] I explained therapy and nursing staff atthe [facility] to evaluate ability to do this with protection of her ROM restriction and NWB status. Jolene at the [facility] reports will speak with nursing regarding this. [...] understanding. All pertinent portions of the clinical decision support analyst documentation was reviewed and agree. Jerilyn Baig I have reviewed the findings of the clinical decision support analyst and agree with their assessment. Jerilyn Baig I have reviewed the findings of the clinical decision support analyst and agree with their assessment. Jerilyn Baig Ortho Nurse - Established Patient Intake Room#: 4 Date: 06/25/2022 1:01 PM Patient: Sd Rehman MR#: [id number] : 1950 Age: 71 y.o. 2wk R TKA Pt stated some days she has shooting pain that goes away, stated her pain today is a 2/10on the pain scale. Pt was wearing her van hose and in a brace & in a wheelchair at the time of visit. Referring Physician: Vita Johsi APRN-CNP Insurance: Payor: MEDICARE ANTHEM HMO OR [...] mouth 2 times daily. 60 tablet 1 Zewhbooduma-Owfdvlclv-Wxxsjb (Trelegy Ellipta) 100-62.5-25 MCG/INH Aerosol Powder, breath [...] 2 times daily., Disp: 60 tablet, Rfl:1 Pzcorfgulmr-Ufhxcfivu-Rcftnt (Trelegy Ellipta) 100-62.5-25 MCG/INH Aerosol Powder, breath [...] 06/25/2022 1:01 PM Patient: Sd Rehman MR#: [id number] : 1950 Age: 71 y.o. 2wk R TKA Pt stated some days she has shooting pain that goes away, stated her pain today is a 2/10on the pain scale. Pt was wearing her van hose and in a brace & in a wheelchair at the time of visit. Referring Physician: Vita Joshi APRN-CNP Insurance: Payor: MEDICARE ANTHEM HMO OR PPO / Plan: MEDICARE [employer] HMO OR PPO / Product Type: *NoProduct [...] mouth 2 times daily. 60 tablet 1 Ppvcjwgpsxb-Mcwyngoob-Vjijvr (Trelegy Ellipta) 100-62.5-25 MCG/INH Aerosol Powder, breath [...] 2 times daily., Disp: 60 tablet, Rfl:1 Vcqcbfxlflb-Iubfeybbv-Luzvlq (Trelegy Ellipta) 100-62.5-25 MCG/INH Aerosol Powder, breath [...] has No Known Allergies. [facility] Note* Nursing Notes - Erum Orozco RN - 06/11/2022 6:03 PM EDT Called to give report to facility nurse x3 and was forwarded to a , then the nurses station and no one picks up. All AVS info and discharge instructions were faxed to facility and given to EMS to provide to facility including narc scripts. Pts IV removed. [facility]03-[facility] Miscellaneous Notes* Nursing Notes - Erum Orozco [...] Lucio - 06/11/2022 4:09 PM EDT Called [facility] at this time for transport to [facility]. ETA 1715 Erum RN notified. * Plan of Care - Erum [...] to use the BSC. Medication given- see MAY. Ice pack changed and applied to R. [...] in the discharge planning process with social services aide and the multidisciplinary team. * Nursing Notes [...] 09, 2022 ATTENDING PHYSICIAN: Navin Clark M.D. MAKING DEPARTMENT PREPARER: Jerilyn Baig CNP PREOPERATIVE DIAGNOSIS: 1. Aseptic [...] FLUIDS: Adequate. SPECIMENS: None. INSTRUMENTATION USED: DePuy ROOOMERSune size 3 right revision CRS femoral component [...] flexion space wasthen opened up with lamina sales account director. A posterior synovectomy was performed. The tibia [...] oscillating saw to remove it. There was qapfjlzf-pd-hfaadz osteolysis on the medial sideof the patella [...] without the assistance of a skilled surgical elastic knitter. A surgical elastic knitter was medically necessary for positioning, retraction and [...] OPERATIVE/PROCEDURE NOTE Sd Rehman 71 y.o. female [id number] SURGEON Surgeon(s) and Role: * Navin Clark MD - Primary MAKING DEPARTMENT PREPARER Jerilyn Baig ANESTHESIOLOGIST AREA FIELD WORKER: Micha Bailey APRN-AREA FIELD WORKER SURGICAL STAFF Senior J2Ee Developer: Jo Downs RN; Nicole Swanson, RN; Alon Duke, RN; Anabelle Vasquez RN Nurse Practitioner: Jerilyn Baig Scrub Person: Gordon Burnett RN; Ciara Boyd LPN; Dannielle Farnsworth RN Home Improvement Advisor: Yoshi Hernandez LPN PROCEDURE PERFORMED Procedure(s) (LRB): [...] Implant Name Type Inv. Item Serial No. Middle [employer] French Teacher Lot No. LRB No. Used Action PALACOS R & G BONE CEMENT HIGH-VISCOSITY WITH GENTAMICIN - [id number] PALACOS R & G BONE CEMENT HIGH-VISCOSITY WITH GENTAMICIN [id number] Right 1 Implanted PALACOS R & G BONE CEMENT HIGH-VISCOSITY WITH GENTAMICIN - [id number] PALACOS R & G BONE CEMENT HIGH-VISCOSITY WITH GENTAMICIN [id number] Right 1 Implanted PALACOS R & G BONE CEMENT HIGH-VISCOSITY WITH GENTAMICIN - [id number] PALACOS R & G BONE CEMENT HIGH-VISCOSITY WITH GENTAMICIN [id number] Right 1 Implanted ATTUNE knee system revision tibial base rotating platform size 2 cemented [employer] [id number] Right 1 Implanted Attune knee system revision tibial sleeve porocoat partially coated 29mm [employer] [id number] Right 1 Implanted Attune Knee System revision Pressfit stem 12mm x 60mm [employer] [id number] Right 1 Implanted Attune Knee system revision Pressfit Stem 10mm x 60mm [employer] [id number] Right 1 Implanted Attune knee system Revision CRS Femoral size 3 Right Cemented [employer] [id number] Right 1Implanted Attune Patella Medialized Dome 35mm Cemented AOX [employer] [id number] Right 1 Implanted Attune Knee system Revision Distal femoral AUgment size 3 4mm cemented [employer] [id number] Right 1 Implanted Attune knee system revision Distal femoral augment size 3 4mm Cemented [employer] [id number] Right 1 Implanted Attune knee system revision offset stem adaptor 4mm [employer] [id number] Right 1 Implanted Moldable demineralized fibers [facility] [place] Right 1 Implanted Attune Knee system Revision CRS Rotating Platform Insert size 3 16mm AOX [employer] [id number] Right 1 Implanted SPECIMENS ID Type Source [...] Jerilyn Baig June 09, 2022 4:28 PM * Certification [...] assist after surgery. Patient requesting to use [facility] home health upon discharge. 05/15/22 5370 Information Source Information Source patient Information Source Name Sd Rehman Contact Information Checker/SW Added to Care Team Yes This [employer] is Primary Checker/SW Yes Checker Name Angelina Rick RN Case Manager's Living [...] needs at this time. [facility] Note* Nursing Notes - KO Lucio - 06/11/2022 5:20 PM EDT [facility] arrives at this time. [facility]03-[facility] History of Present illness Narrative* Augustina Mayer RN - 06/11/2022 4:45 PM EDT HENS completed, negative COVID test and updated referral information faxed to [facility]. * Augustina Mayer RN - 06/11/2022 4:21 PM EDT Gordon at [facility] updated with ETA for transport. Daughter, Jacy, called to update with time oftransport. Patient updated with time of transport, also updated that post-op appointment was changed from 3 weeks to 2 weeks. * Augustina Mayer RN - 06/11/2022 3:44 PM EDT Update received from Gordon from [facility] that patient has been approved and can [...] ice pack donned upon exit * Semaj Pierce, ALUMINUM SIDING MECHANIC - 06/11/2022 10:55 AM EDT 06/11/22 1004 [...] BSC to walker with Rajan x1 and LEARNING AND DEVELOPMENT COORDINATOR assisting pt with pericare andlower body dressing. [...] Supine to Sit, Rehab Eval Level of Junior: Supine/Sit minimum assist (75% patients effort) Physical Assist/Nonphysical Assist: Supine/Sit 1 person assist Transfer Skill: Sit To Stand, Rehab Eval Junior (Sit-Stand Transfers) minimum assist (75% patient effort) Physical Assist/Nonphysical Assist: Sit/Stand 1 person + 1 person to manage equipment Weight-Bearing Restrictions: Sit/Stand nonweight-bearing Assistive Device For Transfer: Sit/Stand 2 wheeled walker Gait Skills, PT Eval Level of Junior: Gait minimum assist (75% patients effort) Physical Assist/Nonphysical Assist: Gait 2 person assist Weight-Bearing Restrictions: Gait nonweight-bearing Assistive Device For Transfer: Gait 2 wheeled walker Gait Distance (bed to BSC, BSC to chair) Gait Analysis, PT Eval Gait Pattern Used swing-to gait Stair Negotiation Junior Level: Stair Negotiation unable to assess Plan Plan for next visit Cont with protocol ex, gentle ROM 0-30 only, and mobility as able Maintain frequency yes * Augustina Mayer RN - 06/11/2022 10:50 AM EDT Spoke with Gordon at [facility] for an update regarding insurance authorization. She states that she has not yet heard back from [facility]. She will be calling at 11:30 to check on auth at the 24 hour point and will call back when she has an update. * Vita Joshi APRN-ADONIS - 06/11/2022 8:32 AM EDT Total Joint [...] hospital: SEE SS NOTES * Semaj Pierce, ALUMINUM SIDING MECHANIC - 06/10/2022 5:47 PM EDT 06/10/22 1716 [...] Ptthen compelted STS to FWW and this ALUMINUM SIDING MECHANIC and LEARNING AND DEVELOPMENT COORDINATOR assisting pt with lower bidy dressing and [...] Supine to Sit, Rehab Eval Level of Junior: Supine/Sit minimum assist (75% patients effort) Physical Assist/Nonphysical Assist: Supine/Sit 1 person assist Transfer Skill: Sit To Stand, Rehab Eval Junior (Sit-Stand Transfers) minimum assist (75% patient effort) Physical Assist/Nonphysical Assist: Sit/Stand 1 person assist Weight-Bearing Restrictions: Sit/Stand nonweight-bearing Assistive Device For Transfer: Sit/Stand 2 wheeled walker Gait Skills, PT Eval Level of Junior: Gait minimum assist (75% patients effort) Physical Assist/Nonphysical Assist: Gait 2 person assist Weight-Bearing Restrictions: Gait nonweight-bearing Assistive Device For Transfer: Gait 2 wheeled walker Gait Distance (bed to BSC, BSC to bed) Gait Analysis, PT Eval Gait Pattern Used swing-to gait Stair Negotiation Junior Level: Stair Negotiation unable to assess Plan Plan for next visit Cont with protocol ex,gentle ROM 0-30, and mobility Maintain frequency yes * Robyn Tha, OT - 06/10/2022 5:13 PM EDT 06/10/22 [...] Transfer Skill: Sit To Stand, Rehab Eval Junior (Sit-Stand Transfers) contact guard Physical Assist/Nonphysical Assist: Sit/Stand 2 person assist Weight-Bearing Restrictions: Sit/Stand nonweight-bearing Assistive Device For Transfer: Sit/Stand 2 wheeled walker Clinical Impression Today's Treatment Included Pt initially requesting to use the bathroom, provide instructed on sequencing [place] [facility] [place] with CGA-min assist x2. Pt complete pant management mod assist,jennifer area hygiene SBA. Pt instructed on doffing pants and donning underwear and shorts using stack clerk, patient complete sit to stand for jennifer [...] Henderson MD - 06/10/2022 4:11 PM EDT [facility] inpatient notes Admit Date: 06/09/2022 Date of Evaluation: 34:11 PM [facility] Rehab / Skilled bed LOS: 1 day [...] (Active) Dressing Status Clean;Dry;Intact 06/10/22 0745 Closure Jonah;Sutures 06/10/22 1305 Assessment Clean, dry, and intact [...] Use Authorization (EUA) for the qualitative detection [id number] nucleic acid. 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 She states that insurance authorization is still pending at this time, will follow tomorrow. Patient updated at this time, denies any needs. * Semaj Pierce PTA - 06/10/2022 10:41 AM EDT 06/10/22 0954 [...] pt having difficulty with advancing L foot. LEARNING AND DEVELOPMENT COORDINATOR placing BSC behind pt and pt then transfered to seated position on commode. Pt able to void and provide self pericare. Pt then completed STS with Rajan x2 and LEARNING AND DEVELOPMENT COORDINATOR asissting pt with lower body dressing. Pt [...] Supine to Sit, Rehab Eval Level of Junior: Supine/Sit minimum assist (75% patients effort) Physical Assist/Nonphysical Assist: Supine/Sit 1 person assist Transfer Skill: Sit To Stand, Rehab Eval Junior (Sit-Stand Transfers) minimum assist (75% patient effort) Physical Assist/Nonphysical Assist: Sit/Stand 2 person assist Weight-Bearing Restrictions: Sit/Stand nonweight-bearing Assistive Device For Transfer: Sit/Stand 2 wheeled walker Gait Skills, PT Eval Level of Junior: Gait minimum assist (75% patients effort) Physical Assist/Nonphysical Assist: Gait 2 person assist Weight-Bearing Restrictions: Gait nonweight-bearing Assistive Device For Transfer: Gait 2 wheeled walker Gait Distance 5 feet Gait Analysis, PT Eval Gait Pattern Used swing-to gait Stair Negotiation Junior Level: Stair Negotiation unable to assess Plan Plan for next visit Cont with protocol ex, gentle ROM 0-30 only, and mobility as able Maintain frequency yes * Augustina Mayer RN - 06/10/2022 10:18 AM EDT Update received from Gordon at [facility]. She states that they can accept the [facility] start precert today. She will continue to update. Met with patient and daughter, Angela to update. SHAR Cha present during conversation, he recommends that patient transport with ambulance when discharging d/t weight bearing precautions and restrictions. * Augustina Mayer RN - 06/10/2022 9:15 AM EDT Spoke with staff at [facility], who state that referral has been received [...] she would like to go to [facility]. Patient will need a wheeled walker, explained [...] at this time. Referral faxed to [facility]. Follow up appointment scheduled for 07/03/22 @ 3:20 pm. * HOME Grover - 06/10/2022 6:56 AM EDT Total Joint Progress Note P O DAY # 1 PROCEDURE: r tka revision SUBJECTIVE: No new symptoms or complaints PAIN RATIN10 OBJECTIVE: Lab Results Component Value Date WBC [...] post hospital: SEE SS NOTES * Alexandra Crawford, PT - 06/09/2022 7:06 PM EDT 03/20/23 1753 Time In/Out Time In 1752 Time Out 1844 Total Visit Time 52 minutes Initial Evaluation/Screen [...] 2009---Dr. Crain APPENDECTOMY BREAST BIOPSY Bilateral TONSILLECTOMY Existing [...] 4 wheeled walker;straight cane Level of Ambulation community General Pain Documentation (Adult, OB, Peds) Presence [...] Supine to Sit, Rehab Eval Level of Junior: Supine/Sit contact guard Transfer Skill: Sit To Stand, Rehab Eval Junior (Sit-Stand Transfers) minimum assist (75% patient effort) Weight-Bearing Restrictions: Sit/Stand nonweight-bearing Assistive Device For Transfer: Sit/Stand 2 wheeled walker Gait Skills, PT Eval Level of Junior: Gait minimum assist (75% patients effort) Physical [...] bottom to decrease presure points, and Tj Everett CNP notified. Tj states that she will check/adjust [...] NWB RLE. Therapist Information [place] # [id number] PT Goals: 1. Patient will perform all [...] Almazan, OT - 06/09/2022 7:05 PM EDT 06/09/22 1830 Time In/Out Time In 1830 Time Out 1855 Total Visit Time 25 minutes Initial Evaluation/Screen Completed? yes General Information RN Approved Intervention as tolerated Admitting Diagnosis failed right TKA Surgical Procedure right knee revision, per LEGAL PRACTICE MANAGER has a tibial fracture Past Surgical History Past Surgical History: Procedure Laterality Date KNEE REPLACEMENT Bilateral 2006 left in 2006 -right 2008---Dr. Crain APPENDECTOMY BREAST BIOPSY Bilateral TONSILLECTOMY Past [...] Available straight cane;axillary crutches;shower chair;hand held shower hose;stack clerk;sock-aid;long-handled shoe horn (high rise toilet) Cognitive Status [...] Sit to Stand, Rehab Eval Level of Junior: Sit/Stand contact guard Physical Assist/Nonphysical Assist: Sit/Stand 1 person assist Weight-Bearing Restrictions: Sit/Stand nonweight-bearing Assistive Device for Transfer: Sit/Stand wheeled walker Upper Body Dressing Level of Junior independent Physical Assist/Nonphysical Assist set-up required (in sitting) Lower Body Dressing Level of Junior maximum assist (25% patients effort) Physical Assist/Nonphysical [...] to thread over right LE and to dross puller bilateral hips due to NWB and patient [...] hygiene training Therapist Information License # [id number] 1. Pt will complete LB dressing mod [...] was originally planning to return home with [facility], with these new developments they do [...] making a referral. Daughter, Angela, provides number ([phone]). She states that she will be staying [...] 9.6 oz) 01/02/22 104.3 kg (230 lb) [place] body weight: 47.8 kg (105 lb 6.1 [...] labs, weight, ONS intake, and medical condition Deisi Dickens RD LD Registered Dietitian, Licensed Dietitian 06/09/22 * Jacinta Conley RN - 05/22/2022 9:07 AM EST Images from the original note were not included. Sd Rehman Female, 71 y.o., 1950 (M) DO Reji Pool RN Cc: Jacinta Conley RN; Mayda Burnham RN She may proceed based on receiving [...] and cardiology pending. Thanks documented in this encounterBellevue Hospital03-22-2023 Hospital course Narrative* Perry Henderson MD - 06/11/2022 4:21 PM EDT Images from the original note were not included. Discharge Summary Name: Sd Rehman Age: 71 y.o. Birthday: 1950 Admit Date: 06/09/2022 10:20 AM Discharge Date: 06/11/2022 Discharge Time: 06/11/2022 Discharge Unit: [facility] Inpatient Rehab unit Unit Length of Stay: LOS: 2 days Admission Information Admitting Physician: Navin Clark MD Discharge Information Discharge Physician: Perry Henderson MD Problem List Active Hospital Problems Diagnosis Benign hypertension Mixed hyperlipidemia Idiopathic chronic gout of multiple sites without tophus half-way (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 non-steroidal anti-inflammatories (nsaid) Stage [...] of NSAIDs atrial fibrillation COPD admitted to [facility] for elective right knee revision Dr. Clark June 09. After this surgery patient complains of no chest pain or shortness of breath no palpitations no abdominal pain no nausea, vital signs and labs monitored, patient worked with physical therapy , determination was made that patient wouldbenefit from skilled nurse [facility]. Patient will be discharge to skilled nurse [facility] June 11 the follow-up primary care and [...] inhaler Inhale 1 puff daily. Generic drug: hlymbepkppy-frofpodaz-Zmlcth STOP taking these medications acetaminophen 650 MG tab ER Commonly known as: TYLENOL Replaced by: Acetaminophen 325 MG tablet Cholecalciferol 25 MCG (1000 UT) CAPS Notes to patient: May resume taking 06/23/2022. Meloxicam 15 MG TABS Commonly known as: MOBIC traMADol 50 MG TABS Commonly known as: ULTRAM Follow-up: Other [facility] [address] [place] [address] Follow up [facility] DO [address] [facility] [address] [facility] [address] Follow up in 1 week(s) Navin Clark MD [address] [facility] [address] Follow up in 3 week(s) Upcoming Appointments (up to five)-Some appointments for Medical Center outpatient clinics or diagnostic testing locations are not displayed below Provider Department Dept Phone 06/25/2022 1:00 PM Jerilyn Baig [facility] [phone] Total coordination of discharge care taking greater that 35 minutes documented in this encounterBellevue Hospital03-22-2023 Note* Nursing Notes - KO Lucio - 06/11/2022 4:09 PM EDT Called [facility] at this time for transport to [facility]. ETA Frandy5 Erum BUCHANAN notified. [facility]03[facility] Note* Plan of Care - Erum Orozco [...] 06/09/2022 7:08 PM Outcome: Adequate for Discharge [facility]* Nursing Notes - Carley Miller RN - 06/11/2022 4:31 AM EDT Pt assessment remains unchanged with any exceptions noted in flowsheets. Pt c/o 5-6 pain after getting up to use the BSC. Medication given- see MAR. Ice pack changed and applied to R. Knee. Foot pumps on. TROM in place. Denies any further needs at this time. Call light within reach. [facility]03-22-2023 Note* Nursing Notes - Carley Miller RN - 06/11/2022 2:50 AM EDT Pt assessment remains unchanged with any exceptions noted in flowsheets. Pt is resting in bed with CPAP on. Ice pack changed and applied to R. Knee. Foot pumps on. Denies any pain or needs at this time. Call light within reach. [facility]03-21-2023 Note* Nursing Notes - Carley Miller RN - 06/10/2022 9:43 PM EDT Pt assessment complete. POC reviewed with pt. Ice pack changed and applied to R. Knee. Foot pumps on. TROM in place. CPAP on. Denies any pain or needs at this time. Bed alarm set. Call light within reach. [facility]03-21-2023 Note* Therapy Note - Elena Langley RRT - 06/10/2022 7:38 PM EDT Paper signed for pt to use home CPAP [facility] [email or web address] Note* Nursing Notes - Prerna Holden RN - 06/10/2022 1:05 PM EDT Assessment is complete and remains unchanged from previous at this time with any exceptions noted in the flowsheet. Patient denies further needs and is left with call light and personals in reach. [facility]03-[facility] Hospital Discharge instructions* Discharge Instructions* Prerna Holden RN - 06/10/2022 9:47 AM EDT You have been given printed educational handouts on all new medications. Please refer to your greendischarge folder for handouts. You have been given seven ABD pads, one ice gel compression wrap, six ice gel packs, two pairs of VNA hose and all personal belongings. If at [...] your recovery is progressing at home. CONTACT HYDRAULIC LIFT OPERATOR FOR FURTHER INSTRUCTION ONCE POST-OP ELIQUIS IS [...] - 06/10/2022 9:45 AM EDT Contact Office ([phone]) if: > Total Knee ROM < 90 [...] 10-14 days after you surgery at the skilled facility. Your surgery day was 06/09/2022. Do [...] in your TROM brace. documented in [facility] encounterS[facility]* Certification - Navin Clark MD - 06/10/2022 6:40 AM EDT I certify that this patient requires inpatient services at this time. Patient is having a Medicare Inpatient Only procedure. Plans for post hospitalization care will be determined in the discharge planning process with social services aide and the multidisciplinary team. [employer] Work Phone: 1(541) 839-731103-21-2023 Note* Nursing Notes - Carley Miller RN - 06/10/2022 4:45 AM EDT Pt assessment remains unchanged with any exceptions noted in flowsheets. Ice pack changed and applied to R. Knee. Foot pumps on. TROM in place. Denies any pain or needs at this time. Call light within reach. [facility]03-20-2023 Note* Nursing Notes - Carley Miller RN - 06/09/2022 11:01 PM EDT Pt assessment remains unchanged with any exceptions noted in flowsheets. Pt states pain is 2/10 andtolerable. Ice pack changed and applied to R. Knee. TROM in place. Foot pumps on. Denies any needs at this time. Call light within reach. Bed alarm set. [facility]03-20-2023 Note* Nursing Notes - Carley Miller RN - 06/09/2022 10:00 PM EDT Pt refuses to wear CPAP d/t loud noise and unable to sleep. Pt on RA and O2 sat is 92%. [facility]* Nursing Notes - Carley Miller RN - 06/09/2022 8:17 PM EDT Pt assessment complete. POC reviewed with pt. Pt c/o 6/10 pain to R. Knee. Medication given- see MAR. TROM in place. Ice pack changed and applied to R. Knee. Foot pumps on. Bed alarm set. Denies any further needs at this time. Call light within reach. [facility] Note* Nursing Notes - Carley Miller [...] Henderson states this is okay with him. [facility] Note* Op Note - Navin Clark MD - 06/09/2022 7:52 PM EDT DATE OF PROCEDURE: June 09, 2022 ATTENDING PHYSICIAN: Navin Clark M.D. MAKING DEPARTMENT PREPARER: Jerilyn Baig CNP PREOPERATIVE DIAGNOSIS: 1. Aseptic [...] FLUIDS: Adequate. SPECIMENS: None. INSTRUMENTATION USED: DePuy ROOOMERSune size 3 right revision CRS femoral component [...] flexion space wasthen opened up with lamina sales account director. A posterior synovectomy was performed. The tibia [...] oscillating saw to remove it. There was akqwvskn-qc-rebxdp osteolysis on the medial sideof the patella [...] without the assistance of a skilled surgical elastic knitter. A surgical elastic knitter was medically necessary for positioning, retraction and instrum entation. [facility]03-20-2023 Note* Nursing Notes - Prerna Holden RN - 06/09/2022 5:19 PM EDT Patient arrives back to room 375 at this time. Report received. Patient complains [...] light and personals in reach. Will monitor. [facility]03-20-[facility] Nurse Note* Martha Unger RN - 06/09/2022 4:58 PM EDT This nurse transfers patient from PACU to room [facility]. Patient's family is at bedside. Patient is [...] deg F, humidity 47% documented in this encounterBellevue Hospital03-20-2023 Nurse Surgical operation note* Martha Unger RN - 06/09/2022 4:58 PM EDT This nurse transfers patient from PACU to room 3755. Patient's family is at bedside. Patient is alert,oriented and stable. Anesthesia SBAR and bedside report is given to Prerna BUCHANAN. Bed is locked, inlowest position and call light in reach of patient [facility]03-20-[facility] Consult note* Perry Henderson MD - 06/09/2022 4:57 PM EDT History and Physical Examination 06/09/22 4:57 PM Chief Complaint: Right knee revision History of Present Illness: Patient is a 71 y.o. female presents for [facility] for right knee revision Dr. Clark [...] gout of multiple sites without tophus 06/09/2022 terminal gauger (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 non-steroidal anti-inflammatories (nsaid) 06/09/2022 [...] by mouth daily. 11/05/21 Yes Historical Provider Rsnozgkkyxa-Ijwxsbmod-Uncerx (Trelegy Ellipta) 100-62.5-25 MCG/INH Aerosol Powder, breath [...] capsule by mouth daily. 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 Perry Henderson MD [facility]03-20-20[facility] Consult note* Perry Henderson MD - 06/09/2022 4:57 PM EDT History and Physical Examination 06/09/22 4:57 PM Chief Complaint: Right knee revision History of Present Illness: Patient is a 71 y.o. female presents for [facility] for right knee revision Dr. Clark [...] gout of multiple sites without tophus 06/09/2022 terminal gauger (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 non-steroidal anti-inflammatories (nsaid) 06/09/2022 [...] by mouth daily. 11/05/21 Yes Historical Provider Lecafgyujym-Vtwfdygmk-Emhvnl (Trelegy Ellipta) 100-62.5-25 MCG/INH Aerosol Powder, breath [...] capsule by mouth daily. 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 Perry Henderson MD documented in this encounterBellevue Hospital03-20-2023 Nurse Surgical operation note* Alon Duke RN - 06/09/2022 4:34 PM EDT Patient transported to PACU with Micha CARBONE. Report given to Martha BUCHANAN at 1628H. [facility]03-20-[facility] Note* Brief Op Note - Jerilyn Baig - 06/09/2022 4:28 PM EDT POST OPERATIVE/PROCEDURE NOTE Sd Rehman 71 y.o. female [id number] SURGEON Surgeon(s) and Role: * Navin Clark MD - Primary MAKING DEPARTMENT PREPARER Jerilyn Baig ANESTHESIOLOGIST AREA FIELD WORKER: Micha Bailey APRN-TONA SURGICAL STAFF Senior J2Ee Developer: Jo Downs RN; Nicole Swanson, DEWAYNE; Alon Duke RN; Anabelle Vasquez RN Nurse Practitioner: Jerilyn Baig Scrub Person: Gordon Burnett, DEWAYNE; Ciara Boyd LPN; Dannielle Farnsworth RN Home Improvement Advisor: Yoshi Hernandez LPN PROCEDURE PERFORMED Procedure(s) (LRB): [...] Implant Name Type Inv. Item Serial No. Middle School French Teacher Lot No. LRB No. Used Action [employer]EMENT HIGH-VISCOSITY WITH GENTAMICIN - [id number] [employer] HIGH-VISCOSITY WITH GENTAMICIN [id number] Right 1 Implanted [employer] R [employer] BONE CEMENT HIGH-VISCOSITY WITH GENTAMICIN - [id number] [employer] BONE CEMENT HIGH-VISCOSITY WITH GENTAMICIN [id number] Right 1 Implanted PALACOS R & G BONE CEMENT HIGH-VISCOSITY WITH GENTAMICIN - [id number] [employer] BONE CEMENT HIGH-VISCOSITY WITH GENTAMICIN [id number] Right 1 Implanted ATTUNE knee system revision tibial base rotating platform size 2 cemented [employer] [id number] Right 1 Implanted Attune knee system revision tibial sleeve porocoat partially coated 29mm [employer] [id number] Right 1 Implanted Attune Knee System revision Pressfit stem 12mm x 60mm [employer] [id number] Right 1 Implanted Attune Knee system revision Pressfit Stem 10mm x 60mm [employer] [id number] Right 1 Implanted Attune knee system Revision CRS Femoral size 3 Right Cemented [employer] [id number] Right 1Implanted Attune Patella Medialized Dome 35mm Cemented AOX [employer] [id number] Right 1 Implanted Attune Knee system Revision Distal femoral AUgment size 3 4mm cemented [employer] [id number] Right 1 Implanted Attune knee system revision Distal femoral augment size 3 4mm Cemented [employer] [id number] Right 1 Implanted Attune knee system revision offset stem adaptor 4mm [employer] [id number] Right 1 Implanted Moldable demineralized fibers [employer] Right 1 Implanted Attune Knee system Revision CRS Rotating Platform Insert size 3 16mm AOX [employer] [id number] Right 1 Implanted SPECIMENS ID Type Source Tests Collected by Time Destination A : right knee incisional fluid (1-2) Surgical Wound SURGICAL WOUND FUNGUS CULTURE, ANAEROBE CULTURE, BACTERIAL CULTURE AND DIRECT SMEAR, LESION, TISSUE, DEVICE Navin Clark MD 06/09/2022 4783 B : right knee medial synovium (1-3) Surgical Wound SURGICAL WOUND FUNGUS CULTURE, ACID FAST CULTURE, ANAEROBE CULTURE, BACTERIAL CULTURE AND DIRECT SMEAR, LESION, TISSUE, DEVICE Navin Clark MD 06/09/2022 1408 C : right knee lateral synovium (1-3) Surgical Wound SURGICAL WOUND FUNGUS CULTURE, ACID FAST CULTURE, ANAEROBE CULTURE, BACTERIAL CULTURE AND DIRECT SMEAR, LESION, TISSUE, DEVICE Navin Clark MD 06/09/2022 1410 Jerilyn Reeseconstantine June 09, 2022 4:28 PM T [facility]03-20-2023 Nurse Surgical operation note* Jo Downs RN - 06/09/2022 1:10 PM EDT OR3 temp 67 deg F, humidity 47% T [facility]03-20-2023 Note* Certification - Perry Henderson MD - [...] be discharge to home with home health. [facility]02-23-2023 Note* Nursing Notes - Angelina Rick RN [...] assist after surgery. Patient requesting to use [facility] upon discharge. 05/15/22 8304 Information Source Information Source patient Information Source Name Sd Rehman Contact Information Checker/SW Added to Care Team Yes This [employer] is Primary Checker/SW Yes Checker Name Angelina Rick RN Case Manager's Living [...] other questions or needs at this time. [facility]02-10-2023 NoteHNO ID: [id number] Author: Dennis Lomas MD Service: ? Author Type: Physician Type: Progress Notes Filed: 05/10/2022 10:42 AM Note Text: NAME: Sd Rehman CLINIC NO.: [id number] DATE OF SERVICE: May 02, 2022 (Feliciano) [...] 90 mcg/actuation inhaler alb (more content not included)...[facility]02-10-2023 Instructions* Patient Instructions* Dennis Lomas MD - 05/02/2022 3:06 PM EST Proceed with knee replacement / repair as scheduled. RTC in week of july 2022 Repeat labs documented [facility] History of Present illness Narrative* Dennis Lomas MD - 05/02/2022 2:56 PM EST Images from the original note were not included. NAME: Sd Rehman [facility] NO.: [id number] DATE OF SERVICE: May 02, 2022 (Feliciano) [...] replacement / repair as scheduled. RTC in week of july 2022 Repeat labs HPI: [...] mg capsule Take 60 mg by mouth. fbpahopbhin-jqdnwdjbd-searokli (TRELEGY ELLIPTA) 100-62.5-25 mcg inhalation powder 1 [...] which included preparing to see the patient, rfjz-dw-hsyq patient care, completing clinical documentation, obtaining and/or reviewing separately obtained history, performing a medically appropriate examination, counseling and educating the pat ient/family/caregiver, ordering medications, tests, or procedures, and independently interpreting results (not separately reported). Dennis Lomas MD, CPE Hematology and Oncology Services Provided at: [place], [place] CC: Odell Jones MD [address] [facility] [address] Olivia Fatima, LEGAL PRACTICE MANAGER [address] [facility] [address] Patrick Barba ([facility] documented in this encounterCos[facility]12-09-2022 NoteHNO ID: [id number] Author: Dennis Lomas MD Service: ? Author Type: Physician Type: Progress Notes Filed: 03/11/2022 8:25 AM Note Text: NAME: Sd Rehman [facility] NO.: [id number] DATE OF SERVICE: February 28, 2022 (Feliciano) [...] 120 mg tablet Jamey (more content not included)...[facility]12-09-2022 Instructions* Patient Instructions* Denins Lomas MD - 02/28/2022 3:52 PM EST Labs in April on return RTC same day documented in this [facility]12-[facility]-2022 History of Present illness Narrative* Dennis Lomas MD - 02/28/2022 3:32 PM EST Images from the original note were not included. NAME: Sd Rehman NATALIA NO.: [id number] DATE OF SERVICE: February 28, 2022 (Feliciano) [...] mg capsule Take 60 mg by mouth. oxketbekcgh-mxnkfothr-svhujocc (TRELEGY ELLIPTA) 100-62.5-25 mcg inhalation powder 1 [...] which included preparing to see the patient, azix-tj-ebar patient care, completing clinical documentation, obtaining and/or reviewing separately obtained history, performing a medically appropriate examination, counseling and educating the pat ient/family/caregiver, ordering medications, tests, or procedures, and independently interpreting results (not separately reported). Dennis Lomas MD, CPE Hematology and Oncology Services Provided at: [place], [place] CC: Odell Jones MD [address] [facility] [address] Olivia Fatima, LEGAL PRACTICE MANAGER [address] [facility] [address] documented in this encounterCoshocton [facility]11-30-2022 History of Present illness Narrative* Estrella Mendoza [...] 02/19/2022 2:22 PM Patient: Sd Rehman MR#: [id number] : 1950 Age: 71 y.o. Referring Physician: [...] DR Take 60 mg by mouth daily. Ypjurosmode-Ogyekrcgh-Tkxhbg (Trelegy Ellipta) 100-62.5-25 MCG/INH Aerosol Powder, breath [...] she was evaluated by Dr. Burrows in [place] for vascular workup (I made a referral [...] - recently evaluated by Dr. Burrows in [place]. 3.) Obesity, increased BMI - weight goal [...] nasal MRSA screening, scheduling an appointment for [facility] [place] and the potential surgical date, and reviewing and signing the consent forms. A short script for Ultra was also given today to aid in [...] mg by mouth daily., Disp: , Rfl: Adwhlabnsru-Utkyxlqjd-Gojgqt (Trelegy Ellipta) 100-62.5-25 MCG/INH Aerosol Powder, breath [...] Rfl: No Known Allergies documented [facility] History of Present illness Narrative* Estrella Mendoza LPN - 01/02/2022 2:10 PM EDT Ortho Nurse [...] 01/02/2022 2:37 PM Patient: Sd Rehman MR#: [id number] : 1950 Age: 71 y.o. Referring Physician: [...] [x]cane, []bracing Are you followed by a census taker? [x] [] Name: [facility] cardiology Are you followed by pain management? [x] [] Name: Are you followed by any other specialists? [x] [] Name: Nephrology--Dr. Jones--[place] Medications Prior to Visit Medication Sig [...] DR Take 60 mg by mouth daily. Ztvxwudatkw-Fuzxoktxe-Vdfjlp (Trelegy Ellipta) 100-62.5-25 MCG/INH Aerosol Powder, breath [...] mg by mouth daily., Disp: , Rfl: Rswzbstvzbx-Jgtikcgvf-Zqssao (Trelegy Ellipta) 100-62.5-25 MCG/INH Aerosol Powder, breath [...] Rfl: No Known Allergies documented in [facility] encounter[facility]2022 NoteEducation Materials Cardiovascular Hypertension, Adult Hypertension is [...] doctor. This is important. Medicines ? Take cksp-tpk-nqmkixo and prescription medicines only as told by [...] pressure forces your h (more content not included)...[facility] [id number] NoteOPERATIVE NOTE OPERATION DATE: 12/03/2021 PRIMARY CARE [...] to the recovery room in good condition.[facility] [id number] Evaluation note * Encounter Date Diagnosis Assessment [...] stenosis without neurogenic claudication (ICD-10 - M48.061) [employer] Other 07-07-2022 Evaluation note* Encounter Date Diagnosis Assessment Notes Treatment Notes Treatment Clinical Notes Sep, Jalil hy kid w 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 Continue current dose of the allopurinol. [employer] Other 09-27-2021 Evaluation note* Encounter Date Diagnosis Assessment Notes [...] Patient care instructions given in writting by [facility] Care At Home document [employer] Other Evaluation noteNo InformationNort [employer] Other Evaluation note* Diagnosis Pain in prosthetic joint, sequela- Primary [facility] [place] [facility]* Diagnosis Pain in prosthetic joint, sequela- Primary documented [facility] encounter [facility] [place] [facility]* Diagnosis Bandemia- Primary Chronic obstructive pulmonary disease, unspecified COPD type (HCC) Macrocytosis without anemia Other specified diseases of blood and blood-forming organs documented in this encounter [facility]* Diagnosis Bandemia- Primary documented in this encounter [facility] [place] [facility]* Diagnosis Acute postoperative pain of right knee- Primary Preop testing Preoperative examination, unspecified Other mechanical complication of internal right knee prosthesis, initial encounter COPD mixed type Chronic airway obstruction, not elsewhere classified Paroxysmal atrial fibrillation Atrial fibrillation Hyponatremia Hyposmolality and/or hyponatremia Stage 3a chronic kidney disease half-way (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 non-steroidal anti-inflammatories (nsaid) Idiopathic chronic gout of multiple sites without tophus Chronic gouty arthropathy without mention of tophus (tophi) Mixed hyperlipidemia Benign hypertension Essential hypertension, benign Benign hypertension Essential hypertension, benign Mixed hyperlipidemia Idiopathic chronic gout of multiple sites without tophus Chronic gouty arthropathy without mention of tophus (tophi) half-way (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 non-steroidal anti-inflammatories (nsaid) Stage 3a chronic kidney disease Hyponatremia Hyposmolality and/or hyponatremia Paroxysmal atrial fibrillation Atrial fibrillation COPD mixed type Chronic airway obstruction, not elsewhere classified Other mechanical complication of internal right knee prosthesis, initial encounter documented in this encounter [facility] [place] [facility]* Diagnosis Hx of total knee arthroplasty, right- Primary documented in this encounter [facility] note* Diagnosis Hx of total knee arthroplasty, right- Primary documented in this encounter [facility] note* Diagnosis Hx of total knee arthroplasty, right- Primary documented in this encounter [facility] [place] [facility]* Diagnosis Hx of total knee arthroplasty, right- Primary documented in this encounter [facility] note* Diagnosis Onset Date Resolution Status CKD (chronic kidney disease) stage 3, GFR 30-59 ml/min acute Gout acute [id number] acute Iron deficiency acute Proteinuria acute Secondary hyperparathyroidism acute [facility] Work Phone: Hisbr[facility] general Narrative - Reported* Type Description Date [...] History CELLULITIS X2 2017 Hospitalization History osteomyelitis [employer] Other [employer] general Narrative - Reported* Type Description Date [...] History CELLULITIS X2 2017 Hospitalization History osteomyelitis [employer] Other history general Narrative - Reported* Type Description Date [...] History CELLULITIS X2 2017 Hospitalization History osteomyelitis [employer] Other InstructionsNot on filedocumented in this encounter [facility] for referral (narrative)* Consultation (Routine) - Closed Specialty Diagnoses / Procedures Referred By Korin maldonado Referred To Contact Cardiovascular Medicine Diagnoses Pain in prosthetic joint, sequela Navin Clark MD [address] [place] [phone] Josef Bates MD [address] [place] [phone] Referral ID Status Reason Start Date Expiration Date Visits Re quested Visits Authorized [id number] Closed 01/02/2022 01/27/2023 1 1 Scheduling Instructions . * Diagnostic X-Ray (Routine) - Pending Review Specialty Diagnoses / Procedures Referred By Chiac t Referred To Contact Diagnoses Pain in prosthetic joint, sequela Procedures XR BONE LENGTH STUDY Navin Clark MD [address] [place] [phone] Referral ID Status Reason Start Date Expiration Date V isits Requested Visits Authorized [id number] Pending Review 12/27/2021 01/21/2023 1 1 * Diagnostic X-Ray (Routine) - Pending Review Specialty Diagnoses / Procedures Referred By Contac t Referred To Contact Diagnoses Pain in prosthetic joint, sequela Procedures XR KNEE RIGHT 3 VIEWS Navin Clark MD [address] [place] [id number] Referral ID Status Reason Start Date Expiration Date V isits Requested Visits Authorized [id number] Pending Review 12/27/2021 01/21/2023 1 1 [facility] for visit Narrative* Auth/Cert Specialty Diagnoses / Procedures Referred By Contac t Referred To Contact Diagnoses Other mechanical complication of internal right knee prosthesis, initial encounter Other mechanical complication of internal right knee prosthesis, initial encounter [T84.092A] Procedures LA REVISE KNEE JOINT REPLACE,ALL PARTS REVISION ARTHROPLASTY KNEE Navin Clark MD [address] [place] [address] Referral ID Status Reason Start Date Expiration Date Visits Re quested Visits Authorized [id number] 03/12/2022 1 1 [facility] Summary Purpose Family History No Family History Records Found Relationship Condition Age at Onset Recorded Date/T alexei father Unknown Malignant neoplasm Unknown Not Specified Unknown Heart disease Unknown Hypertension Unknown sister Hypertension Unknown History of stroke Unknown Advance Directives No Advanced Directives Records FoundDocuments on File Type Date Recorded Patient Gunner'S Mate M Expl anation Advance Directives/Living Will 06/09/2022 10:21 AM Latest Code Status on File Code Status Date Activated Date Inactivated Comments Full Code 06/09/2022 4:37 PM Documents on File Type Date Recorded Patient Gunner'S Mate M Expl anation Advance Directives/Living Will 06/09/2022 10:21 AM LIVING WILL Documents on File Type Date Recorded Patient Gunner'S Mate M Expl anation Advance Directives/Living Will 06/09/2022 10:21 AM LIVING WILL Latest Code Status on File Code Status Date Activated Date Inactivated Comments Full Code 06/09/2022 4:37 PM Advance Directive Response Recorded Date/ Time Advance Directives Yes August 19 10:25am Reason for Referral Specialty Diagnoses / Procedures Referred By Korin maldonado Referred To Contact Diagnoses Hx of total knee arthroplasty, right Procedures XR KNEE RIGHT 2 VIEWS XR KNEE RIGHT 3 VIEWS Jerilyn Baig [address] [place] [address] Referral ID Status Reason Start Date Expiration Date V isits Requested Visits Authorized [id number] New Request 06/13/2022 07/08/2023 1 1 Specialty Diagnoses / Procedures Referred By Korin maldonado Referred To Contact Physical Therapy Diagnoses Acute postoperative pain of right knee Jerilyn Baig [address] [place] [phone] Referral ID Status Reason Start Date Expiration Date V isits Requested Visits Authorized [id number] New Request 06/09/2022 07/04/2023 1 1 Scheduling Instructions . Specialty Diagnoses / Procedures Referred By Contac t Referred To Contact Diagnoses Pain in prosthetic joint, sequela Procedures XR KNEE RIGHT 2 VIEWS XR KNEE RIGHT 3 VIEWS Navin Clark MD [address] [place] [phone] Referral ID Status Reason Start Date Expiration Date V isits Requested Visits Authorized [id number] New Request 02/07/2022 03/04/2023 1 1 Chief Complaint and Reason for Visit Chief Complaint RENAL F/U Reason for Visit CKD (chronic kidney disease) stage 3, GFR 30-59 ml/min Gout [id number] Iron deficiency Proteinuria Secondary hyperparathyroidism Additional Source Comments INFORMATION SOURCE (unrecogn ized section and content) DATE CREATED AUTHOR 09/16/2017 [facility] DATE CREATED AUTHOR AUTHOR'S ORGANIZ ATION 10/16/2019 [facility] DATE CREATED AUTHOR AUTHOR'S ORGANIZ ATION 12/28/2021 [facility] DATE CREATED AUTHOR AUTHOR'S ORGANIZ ATION 03/14/2022 [facility] DATE CREATED AUTHOR AUTHOR'S ORGANIZ ATION 05/11/2022 [facility] DATE CREATED AUTHOR AUTHOR'S ORGANIZ ATION 06/04/2022 [facility] DATE CREATED AUTHOR AUTHOR'S ORGANIZ ATION 07/24/2023 [facility] DATE CREATED AUTHOR AUTHOR'S ORGANIZ ATION 07/24/2023 [facility] DATE CREATED AUTHOR AUTHOR'S ORGANIZ ATION 08/25/2023 [facility] DATE CREATED AUTHOR AUTHOR'S ORGANIZ ATION 08/25/2023 [facility] DATE CREATED AUTHOR AUTHOR'S ORGANIZ ATION 09/14/2023 [facility] REASON FOR VISIT (unrecogniz ed section and content) Specialty Diagnoses / Procedures Referred By Korin maldonado Referred To Contact Diagnoses Pain in prosthetic joint, sequela Procedures XR BONE LENGTH STUDY Navin Clark MD [address] [place] [address] Referral ID Status Reason Start Date Expiration Date V isits Requested Visits Authorized [id number] Pending Review 12/27/2021 01/21/2023 1 1 Reason Comments Pain New Patient Reason Comments Pain Reason Comments Consult Specialty Diagnoses / Procedures Referred By Contac t Referred To Contact Nuclear Medicine Diagnoses Hx of total knee arthroplasty, right Abnormal laboratory test result Pain in prosthetic joint, subsequent encounter Procedures NUC WBC STUDY LA ABSCESS IMAGING, WHOLE BODY Vita Joshi, CANINE SERVICE INSTRUCTOR TRAINER-LEGAL PRACTICE MANAGER [address] [place] [address] [facility] Nuclear Medicine [address] [place] [address] Referral ID Status Reason Start Date Expiration Date Visits Re quested Visits Authorized [id number] Closed 02/28/2022 03/25/2023 2 2 Reason Comments Bandemia Reason Comments Follow-up Reason Comments Follow-up Specialty Diagnoses / Procedures Referred By Contac t Referred To Contact Diagnoses Hx of total knee arthroplasty, right Procedures XR KNEE RIGHT 3 VIEWS Navin Clark MD [address] [place] [address] Referral ID Status Reason Start Date Expiration Date V isits Requested Visits Authorized [id number] New Request 08/26/2022 09/20/2023 1 1 Reason Comments Post Op Visit Condition Update Referral ID Status Reason Start Date Expiration Date V isits Requested Visits Authorized [id number] New Request 09/30/2022 10/25/2023 1 1 Reason Onset Date Comments Med Refill 06/08/2023 Specialty Diagnoses / Procedures Referred By Contac t Referred To Contact Diagnoses Hx of total knee arthroplasty, right Procedures XR KNEE RIGHT 3 VIEWS Vita Joshi, CANINE SERVICE INSTRUCTOR TRAINER-LEGAL PRACTICE MANAGER [address] [place] [address] Referral ID Status Reason Start Date Expiration Date V isits Requested Visits Authorized [id number] New Request 07/14/2023 08/07/2024 1 1 Care Teams (unrecognized sec tion and content) Inside Sales Trainer Relationship Specialty Start Date End Date Patrick Odom DO [address] [facility] [place] [address] PCP - General Family Medicine 01/02/22 Inside Sales Trainer Relationship Specialty Start Date End Date Patrick Odom DO [address] [place] [address] [place] [address] PCP - General Family Medicine 01/02/22 Inside Sales Trainer Relationship Specialty Start Date End Date Patrick Odom DO [address] [place] [address] [place] [address] PCP - General Family Medicine 01/02/22 Inside Sales Trainer Relationship Specialty Start Date [place] [address] PCP - General Family Medicine 02/25/22 Inside Sales Trainer Relationship Specialty Start Date [place] [address] PCP - General Family Medicine 02/25/22 Inside Sales Trainer Relationship Specialty Start Date End Date Patrick Odom DO [address] [place] [address] [place] [address] PCP - General Family Medicine 01/02/22 Inside Sales Trainer Relationship Specialty Start Date End [place] [address] PCP - General Family Medicine 02/25/22 Inside Sales Trainer Relationship Specialty Start Date End Date Patrick Odom DO [address] [place] [address] [place] [address] PCP - General Family Medicine 01/02/22 Inside Sales Trainer Relationship Specialty Start Date End Date Patrick Odom DO [address] [place] [address] [place] [address] PCP - General Family Medicine 01/02/22 Inside Sales Trainer Relationship Specialty Start Date End Date Patrick Odom DO [address] [place] [address] [place] [address] PCP - General Family Medicine 01/02/22 Inside Sales Trainer Relationship Specialty Start Date End Date Patrick Odom DO [address] [place] [address] [place] [address] PCP - General Family Medicine 01/02/22 Inside Sales Trainer Relationship Specialty Start Date End Date Patrick Odom DO [address] [place] [address] [place] [address] PCP - General Family Medicine 01/02/22 Inside Sales Trainer Relationship Specialty Start Date End Date BehzadanastasiyaPatrick miller DO [address] [place] [address] [place] [address] PCP - General Family Medicine 01/02/22 Inside Sales Trainer Relationship Specialty Start Date End Date Patrick Odom DO [address] [place] [address] PCP - General Family Medicine 06/13/16 Inside Sales Trainer Relationship Specialty Start Date End Date BehzadanastasiyaPatrick miller DO [address] [place] [address] [place] [address] PCP - General Family Medicine 01/02/22 Inside Sales Trainer Relationship Specialty Start Date End Date BehzadanastasiyaPatrick miller DO [address] [place] [address] [place] [address] PCP - General Family Medicine 01/02/22 Team Status: Active Member Role Status Dates Patrick BehzadDO sanjana Primary Care Provider Active Team Status: Inactive [...] or prosecute any alcohol or drug abuse patient.[facility] Center[facility] the event this information is protected by the Federal Confidentiality of Alcohol and Drug Abuse Patient Records regulations: The Federal rules restrict any use of the information to criminally investigate or prosecute any alcohol or drug abuse patient.[facility] CenterIn the event this information is protected by the Federal Confidentiality of Alcohol and Drug Abuse Patient Records regulations: The Federal rules restrict any use of the information to criminally investigate or prosecute any alcohol or drug abuse patient.[facility] Scheduled Active and Recently Administ ered Medications [...] dose on Thu06/09/22 at 1800, Until Discontinued 1815 (Given - Provider: Prerna Holden RN) 1749 [...] RN) 0857 (Given - Provider: Erum Orozco, RN) ceFAZolin (ANCEF) 2 g in dextrose [...] Holden RN)1306 ($$New Bag$$ - Provider: Prerna Holden, RN)1336 (Stopped - Provider: Prerna Holden RN) cloNIDine (CATAPRES) tablet 0.1 mg 0.1 mg, Oral, 2 TIMES DAILY, First dose on Thu06/09/22 at 1700, Until Discontinued, All for blood pressure less than 1 20 mmHg 1815 (Given - Provider: Prerna Holden RN) 0832 (Given - Provider: Prerna Holden RN)1749 (Given - Provider: Prerna Holden, RN) 0857 (Given - Provider: Erum Orozco, [...] on Thu06/09/22 at 1730, Until Discontinued, Post-op/Post-Proc 181 (Given - Provider: Prerna Holden RN) 0831 (Given - Provider: Prerna Holden RN)1749 (Given - Provider: Prerna Holden RN) 0858 (Given - Provider: Erum Orozco, RN)1700 (Canceled [...] dose on Thu06/09/22 at 1700, Until Discontinued 181 (Given - Provider: Prerna Holden RN) 0831 [...] Erum Orozco RN)1206 (Given - Provider: Erum Orozco, RN)1700 (Canceled Entry - Provider: System Discharge - Comment: Automatically canceled at discontinue of medication order) Folic acid (FOLVITE) tablet 1 mg 1 mg (1,000 mcg), Oral, DAILY, First dose on Thu06/10/22 at 0900, Until Discontinued 0833 (Given - Provider: Prerna Holden RN) 0857 (Given - Provider: Erum Orozco, RN) furOSEmide (LASIX) tablet 20 mg 20 mg, Oral, DAILY, First dose on Thu06/10/22 at 0900, Until Discontinued, Hold for blood pressure less than 1 10 mmHg 0833 (Given - Provider: Prerna Holden RN) 0857 (Given - Provider: Erum Orozco, RN) Ropivacaine (NAROPIN) 1 % 400 mg, [...] Miller RN) 0857 (Given - Provider: Erum Orozco RN)1206 [...] Holden RN) 0858 (Given - Provider: Erum Orozco, RN) vancomycin (VANCOCIN) 1,000 mg in dextrose 200 ml premix IVPB (COMPLETED) 1,000 mg (rounded from 1,044 mg = 15 mg/kg 69.6 kg Adjusted weight), Intravenous, ONCE, 1 dose, On Thu06/10/22 at 0200, Infuse at a rate of 1 gram/hour. Extravasation Risk, Post-op/Post-Proc 0154 ($$New Bag$$ - Provider: Carley Miller RN)0700 (Stopped - Provider: Perrna Holden RN - Comment: not running upon [...] Prerna Holden RN)1342 ($$New Bag$$ - Provider: Micha Bailey APRN-AREA FIELD WORKER)1817 (Rate/Dose Verify - Provider: Prerna Holden RN) [...] 2 g, Intravenous, Administer over 30 Minutes, BLOW MOLD TECHNICIAN TO PROCEDURE, 1 dose, Starting on Thu06/09/22 at 1056, Until Discontinued, Other, Pre-operative antibiotic, For 15 Minutes, Pre-op/Pre-Proc 1347 (Given - Provider: Micha Bailey, CANINE SERVICE INSTRUCTOR TRA[facility]) HYDROmorphone (DILAUDID) injection 0.5 mg 0.5 mg, [...] 10mg PO Q12H for 3 days, Post-op/Post-Proc 2016 (Given - Provider: Carley Miller, RN) 0645 (Given - Provider: Carley Miller, RN)1305 (Given - Provider: Prerna Holden, RN) 0431 (Given - Provider: Carley Miller, RN) polymyxin B sulfate 500,000 Units in Sodium chloride 0.9 % 3,000 mL irrigation solution NEEDED, Starting on Thu06/09/22 at 1403, Until Thu06/11/22 at 2025, Intra-op/Intra-Proc 1403 (Given - Provider: Navin Clark MD - Comment: pulsavac insulator apprentice) senna-docusate (SENOKOT-S) 8.6-50 MG per tablet 2 [...] BE BASED ON THE PRIMARY CLINICAL RECORDS. [facility]. provides no warranty or guarantee of the accuracy or completeness of information in this document.
[2023-09-15 10:15] VITALS: BP 139/87; PULSE 74; O2SAT 97
[2023-09-15] MEDS: LIDOCAINE HCL/EPINEPHRINE 10 ML, SODIUM BICARBONATE 1 MEQ INJ (11:00)
--- NOTE | 2023-09-15 11:53 | SUR.PREOP ---
09/08/23 Pt instructed on procedure, date, time, and prep. Pt made aware to hold Apixaban for 2 full days prior to day of biopsy.
== END 2023-09-15 11:30 | disposition home or self-care (01) ==
PROVIDERS: Radiology Diagnostic Radiology; PCP Family Medicine; Visit Provider Family Medicine
DX: D24.1 Benign neoplasm of right breast (principal); N60.11 Diffuse cystic mastopathy of right breast
CPT/HCPCS: 19083; 77065; 88305; 88341; 88342

== ENCOUNTER 2023-10-26 12:29 | Outpatient (OUT) | payer MEDICARE, SELFPAY ==
--- NOTE | 2023-10-26 12:37 | ECG_ITS ---
The [facility] Test Date: 2023-10-26 Pat Name: SD REHMAN Department: Room: - Gender: Female Global Sourcing Manager: : 1950 Requested By: JEFRY GARIBAY Order Number: [id number] Reading MD: MONIQUE FLANAGAN Measurements Intervals [place] Rate: 77 P: 42 AK: 168 QRS: -27 QRSD: 90 T: 34 QT: 368 QTc: 419 Interpretive Statements SINUS RHYTHM WITH SINUS ARRHYTHMIA MODERATE VOLTAGE CRITERIA FOR LVH, CONSIDER NORMAL VARIANT [MEETS CRITERIA IN ONE OF: R(aVL), S(V1), R(V5), R(V5/V6)+S(V1)] INFERIOR MYOCARDIAL INFARCTION [40+ ms Q WAVE AND/OR ST/T ABNORMALITY IN II/aVF], OF INDETERMINATE AGE No previous ECG available for comparison Electronically Signed On 10-26-2023 22:53:23 EDT by MONIQUE FLANAGAN
--- NOTE | 2023-10-26 12:37 | XR_ITS ---
The [address] [address] Patient Name: SD REHMAN MRN: [id number] date: 1950 Sex: F Assigned Patient Location: Current Patient Location: [facility] Accession/Order Number: [id number] Exam Date: 10/26/2023 13:20 Report Date: 10/26/2023 13:55 At the request of: JEFRY GARIBAY Procedure: XR chest 2V EXAM: XR chest 2V HISTORY: Preop exam COMPARISON: 11/21/2021 TECHNIQUE: Upright PA and lateral chest x-ray FINDINGS: The heart is near the upper limits of normal in size. The vasculature is not distended. No acute infiltrate, effusion or pneumothorax is identified. A small amount of scarring is seen in the right upper lung. Flattening of the hemidiaphragms indicates COPD. Degenerative changes are seen in the spine and shoulders. XR/XR chest 2V IMPRESSION: No acute infiltrate or evidence of cardiac decompensation. Some chronic changes are noted. The overall appearance of the chest has not changed significantly. Electronically authenticated by: NGHIA ANGUIANO Date: 10/26/2023 13:55
--- OUTSIDE RECORDS SUMMARY | 2023-10-26 12:46 | XMS_ITS | CCD ---
Author Organization [facility] Care Team Providers Care Desk Manager Name Role Phone PHYSICIAN, DEFAULT Unavailable Unavailable PHYSICIAN, DEFAULT Unavailable Unavailable Malina Lafleur Unavailable Odell Jones Unavailable Curtis Watkins Unavailable Jignesh He Attending Unavailable PATRICK ODOM Primary Care Unavailable Jignesh He Admitting Unavailable Jignesh He Attending Unavailable PATRICK ODOM Primary Care Unavailable Jignesh He Admitting Unavailable Furlong Patrick SANTA Primary Care Provider [phone] Aldens, Olivia R Primary Care Provider VITA JOSHI Referring Unavailable VITA JOSHI Attending Unavailable FURLONG, PATRICK Primary Care Unavailable VITA JOSHI Attending Unavailable BEHZADLONG, PATRICK Primary Care Unavailable VITA JOSHI Referring Unavailable VITA JOSHI Attending Unavailable BEHZADLONG, PATRICK Primary Care Unavailable VITA JOSHI Referring Unavailable ABHYANKAR, DENNIS Attending Unavailable KUNS, OLIVIA R Primary Care Unavailable ABHYANKAR, DENNIS Referring Unavailable KUNS, OLIVIA R Primary Care Unavailable KAREN ODELL Referring Unavailable KUNS, OLIVIA R Primary Care Unavailable ABHYANKAR, DENNIS Attending Unavailable SUSI ., MOHAMUD Attending Unavailable FURLOSAM, DR PATRICK Roche Primary Care Unavailable SUSI .MOHAMUD Admitting Unavailable SUSI .MOHAMUD Consulting Unavailable TIMMIS, DR IZAGUIRRE Consulting Unavailable TIMMIS, DR IZAGUIRRE Attending Unavailable TIMMIS, DR IZAGUIRRE Admitting Unavailable FURLONG, DR PATRICK Roche Primary Care Unavailable DAY [...] DR PATRICK Roche Primary Care Unavailable SAMSA .BREANNE Attending Unavailable SAMSA ., BREANNE Admitting Unavailable SAMSA ., BREANNE Consulting Unavailable JESSE, CHRIS Admitting Unavailable JESSE, CHRIS Consulting Unavailable JESSE, CHRIS Attending Unavailable FURLOSAM, DR PATRICK Roche Primary Care Unavailable FURLONG, DR PATRICK Roche Primary Care Unavailable MENDOZA, DR LEE Consulting Unavailable MENDOZA, DR LEE Attending Unavailable MENDOZA, DR LEE Admitting Unavailable HAY ., DR GAYLE Consulting Unavailable HAY ., DR GAYLE Attending Unavailable HAY ., DR GAYLE Admitting Unavailable FURLONG, DR PATRICK Roche Primary Care Unavailable ASHLEY WEAVER Consulting Unavailable NEFCY, NGIHA Consulting Unavailable LENNYROBYN Consulting Unavailable MISC, DR CHANG Attending Unavailable MISC, DR CHANG Admitting Unavailable FURLONG, DR PATRICK Roche Primary Care Unavailable FURLONG, DR PATRICK Roche Primary Care Unavailable SAMSA ., BREANNE Consulting Unavailable SAMSA ., BREANNE Attending Unavailable SAMSA ., BREANNE Admitting Unavailable JESSE, CHRIS Admitting Unavailable JESSE, CHRIS Attending Unavailable FURLONG, DR PATRICK Roche Primary Care Unavailable KAREN, ODELL Admitting Unavailable KAREN, ODELL Consulting Unavailable KAREN, ODELL Attending Unavailable FURLONG, DR PATRICK Roche Primary Care Unavailable SUSI ., MOHAMUD Attending Unavailable FURLONG, DR PATRICK Roche Primary Care Unavailable SUSI ., MOHAMUD Admitting Unavailable SUSI ., MOHAMUD Consulting Unavailable ABBAS, DR ALFARO Consulting Unavailable ABBAS, DR ALFARO Attending Unavailable ABBAS, DR ALFARO Admitting Unavailable FURLONG, DR PATRICK Roche Primary Care Unavailable LATHA, DR TERESA Akbar Consulting Unavailable Furlong Patrick SANTA Primary Care Provider [phone] Furlo Patrick SANTA Primary Care Provider VITA JOSHI Attending Unavailable NAVIN CLARK Referring Unavailable BEHZADLONG, PATRICK Primary Care Unavailable SELF, SELF Referring Unavailable VITA JOSHI Attending Unavailable FURLONG, PATRICK Primary Care Unavailable VITA JOSHI Referring Unavailable VITA JOSHI Attending Unavailable FURLONG, PATRICK Primary Care Unavailable VITA JOSHI Referring Unavailable VITA JOSHI Attending Unavailable FURLONG, PATRICK Primary Care Unavailable FURLONG, PATRICK Primary Care Unavailable VITA JOSHI Attending Unavailable NAVIN CLARK Referring Unavailable NAVIN CLARK Attending Unavailable FURLONG, PATRICK Primary Care Unavailable NAVIN CLARK Referring Unavailable AMBER, NAVIN Attending Unavailable SELF, SELF Referring Unavailable FURLONG, PATRICK Primary Care Unavailable AMBER, NAVIN Attending Unavailable NAVIN CLARK Referring Unavailable FURLONG, PATRICK Primary Care Unavailable FURLONG, PATRICK G Referring Unavailable FURLONG, PATRICK G Primary Care Unavailable YUHASGUIDO Admitting Unavailable YUHAS, GUIDO Rogers Attending Unavailable YUHAS, GUIDO Rogers Referring Unavailable FURLONG, PATRICK G Primary Care Unavailable YUHAS, GUIDO Rogers Attending Unavailable YUHAS, GUIDO Rogers Referring Unavailable FURLONG, PATRICK G Primary Care Unavailable Furlong, DO Patrick Attending Provider [phone] RUPINDER GIORDANO Attending Unavailable ALGHOTHANI, RUPINDER Attending Unavailable ALGHOTHANI, RUPINDER Attending Unavailable Furlong, Patrick Attending Unavailable Furlong, Patrick Admitting Unavailable FURLONG, PATRICK G Attending Unavailable FURLONG, PATRICK G Referring Unavailable FURLONG, PATRICK G Primary Care Unavailable FURLONG, PATRICK G Referring Unavailable FURLONG, PATRICK G Primary Care Unavailable JEFRY GARIBAY Attending Unavailable FURLONG, PATRICK G Referring Unavailable [...] Start: 06-09-2022 take 2 tablets by mo ut every four hours as needed Acetaminophen 325 [...] by mouth every 4 hours as needed. [id number] 200 actuat albuterol 0.09 mg/actuat metered dose [...] Start: 08-11-2022 take 1 tablet by brittny th once daily allopurinoL (ZYLOPRIM) 300 mg tablet [...] oral capsule (6 sources) Penicillin-class Antibacterial Start: 3 End: 4 Amoxicillin 500 MG capsule Take 4 capsules 1 hour before procedure 8 capsule 1 06/25/2022 06/26/2023 Active apixaban 5 mg oral tablet (13 sources) Factor Xa Inhibitor Start: 4 take [...] day Active cholecalciferol 0.025 mg oral tablet (8 sources) Vitamin D Start: take 1000 [IU] by mouth once daily Cholecalciferol (Vitamin D3) Active 1000 UNIT PO Daily August 20, 2023 12:00am take 1 capsule by mo [facility] in the morning cholecalciferol, vitamin D3, 25 [...] 2023 12:00am take 1 tablet by brittny th once daily as needed colchicine 0.6 MG [...] 55 bpm take 1 capsule by mo uth twice daily diltiazem 240 MG Cap SR [...] Start: 11-05-2021 take 1 capsule by mo uth once daily DULoxetine [address] [...] propionate 0.05 mg/actuat metered dose nasal spray (9 sources) Corticosteroid Start: 08-20-2023 Fluticasone Pr opionate [...] a day for 14 day(s) Nov, Active Jizdpwncjqh-Qazbeghzi-Dbnviy er (20 sources) Anticholinergic, Corticosteroid, beta2-Adrenergic Agonist Start: 08-20-2023 Xhtztgrxkjt-Smlwobsrn-Sguftw er (Trelegy Ellipta) 100-62.5-25 mcg blister with device Active 1 INH INHALATION Daily August 20, 2023 12:00am Start: 03-25-2022 take 1 puff(s) by mo [facility] once daily TRELEGY ELLIPTA 100-62.5-25 mcg blister with device INHALE 1 PUFF BY MOUTH ONCE EVERYDAY *RINSE MOUTH AFTER USE* 0 03/25/2022 Active take 1 puff(s) by in halation once daily Zjocmqqemvr-Digvbrtct-Nbfeqp (Trelegy Ellipta) 100-62.5-25 MCG/INH Aerosol Powder, breath [...] 1 tablet Orally Once a day Active txcshuaf-uzns-OD-calci um &mins (THERAGRAN-M) 9 mg iron-400 mcg tablet (1 source) Start: 3 pvesxewe-lnje-HI-c alcium &mins (THERAGRAN-M) 9 mg iron-400 mcg [...] Active rosuvastatin calcium 10 mg oral tablet (20 sources) HMG-CoA Reductase Inhibitor Start: 08-20-2023 take [...] once daily. spironolactone 25 mg oral tablet (19 sources) Aldosterone Antagonist Start: 08-20-19 take 25 [...] by mouth once daily. Stiolto Respimat Inhalation [place] (4 sources) take 2 puff(s) by inhalation once daily Stiolto Respimat Inhalation [place] 2 puffs Once daily Active therapeutic multivitamin-minerals [...] mg docusate sodium 50 mg / sennosides, penitentiary 8.6 mg oral tablet (1 source) Start: [...] at Discharge) take 1 tablet by brittny th once daily as needed Mobic 15 MG [...] Varenicline Tart rate, Starter, (Chantix Starting Month Froylan) 0.5 MG [...] Onset: 3 Chronic Disorders of lipid metabolism (19 sources) Hyperlipidemia, unspecified; Translations: [Mixed hyperlipidemia] Onset: 2 Chronic Essential hypertension (18 sources) Essential (primary) hypertension; Translations: [Benign hypertension] Onset: 2 Chronic Genitourinary symptoms and ill-defined conditions (7 sources) Proteinuria, unspecified; Translations: [Proteinuria] Onset: 2 Resolved: 2 Episodic Gout and other crystal arthropathies (20 sources) Gout; Translations: [Gout, unspecified] Onset: 1 Resolved: 2 Chronic Hypertension with complications and secondary hypertension (20 sources) Chronic kidney disease due to hypertension; Translations: [Hypertensive chronic kidney disease with stage 1 through stage 4 chronic kidney disease, or unspecified chronic kidney disease] Onset: 1 Resolved: 2 Chronic Neoplasms of unspecified nature or uncertain behavior (2 sources) Neoplasm of unspecified behavior of digestive system; Translations: [Neoplasm of unspecified behavior of bone, soft tissue, and skin] Onset: 4 Episodic Nutritional deficiencies (4 sources) Iron deficiency; Translations: [Iron deficiency] Episodic Osteoarthritis (2 sources) Primary generalized (osteo)arthritis; Translations: [Osteoarthritis] Onset: 2 05-29-2022 Chronic Other acquired deformities (3 sources) Lumbar spondylolisthesis; Translations: [Spondylolisthesis, lumbar region] Episodic Other and unspecified benign neoplasm (1 source) Benign neoplasm of ascending colon; Translations: [Benign neoplasm of ascending colon] Onset: 4 Episodic Other and unspecified benign neoplasm (1 source) Benign neoplasm, unspecified site; Translations: [Benign neoplasm, unspecified site] Onset: 4 Episodic Other and unspecified benign neoplasm (1 source) Benign neoplasm of right breast; Translations: [Benign neoplasm of right breast] Onset: 4 Episodic Other connective tissue disease [...] Episodic Other diseases of kidney and ureters (8 sources) Secondary hyperparathyroidism; Translations: [Secondary hyperparathyroidism of renal origin] 08-20-2023 Chronic Other diseases of kidney and ureters (7 sources) Secondary hyperparathyroidism of renal origin; Translations: [...] conditions (not mental disorders or infectious disease) (11 sources) Unspecified abnormal finding in specimens from [...] apnea (adult) (pediatric)] Onset: 7 05-29-2022 Chronic Residual codes; unclassified (1 source) Pain, unspecified; Translations: [Pain, unspecified] Onset: 4 Episodic Spondylosis; intervertebral disc disorders; other back [...] 2 Unclassified (1 source) screening Onset: 4 Unclassified (1 source) Breast Mass Onset: 4 Unclassified (1 source) MAW Onset: 4 Past or Other Problems Problem [...] 10-24-2021 Episodic Other aftercare (1 source) Other exterminator helper (current) drug therapy; Translations: [OTH FINISH SAW OPERATOR CURRENT DRUG THERAPY] Onset: 12-09-2021 Episodic Other aftercare (1 source) care home (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 anticoagulants; Translations: [FINISH SAW OPERATOR CURRNT USE ANTICOAGULANTS] Onset: 11-25-2021 Episodic Other aftercare (11 sources) Patient encounter status; Translations: [care home (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 non-steroidal anti-inflammatories (NSAID)] Onset: [...] Test Name Value Interpretation Reference Range Facility [facility] 09-15-2023 L Specimen: [id number] Received: 09/16/23 Status: KISHAN Elizalde Num: [id number] Spec Type: Surgical Subm Dr: Patrick Odom DO Tissues: A BREAST CORE NO CALCS (RT BREAST MASS) Procedures: HE/2, Gross/Micro L4, AE1-AE3, p63 Age/ Patient Sex Location Account Attending Physician Sd Rehman 73/F LABE[facility] [id number] Patrick Odom DO SPEC NUM: [id number] RECD: 09/16/23 STATUS: [facility] RE NUM: [id number] DEDE: 09/15/23- SUBM DR: Patrick Odom DO ENTERED: 09/16/23-[address]: Scott,Lab SPEC TYPE: Surgical DEPT: BREANNA HUTCHINSON ORDERED: HE/2, Gross/Micro L4, AE1-AE3, p63 ORDERED: HE/2, Gross/Micro L4, AE1-AE3, p63 Pathological Diagnosis Mass, right breast retroareolar, biopsy: Fibrocystic change with focal features suggestive of intraductal papilloma. Confirmed with pancytokeratin and p63 immunostain. Clinical Information Right breast mass Gross Description Received in formalin labeled with the patient's name, date of and right breast retroareolar mass are 3 fibrofatty tissue cores ranging from 2.1 cm to 1.7 cm in length by 0.3 cm in diameter, entirely submitted in A1. Time of collection: 09/15/2023 at 1107 Time placed in formalin: 09/15/2023 at 1112 Placed in 10% neutral buffered formalin Time at gross: 09/16/2023 at 1650 ---- Specimen: [id number] Received: 09/16/23-1308 Status: KISHAN Elizalde Num: [id number] Spec Type: Surgical Subm Dr: Patrick Odom DO Tissues: A BREAST CORE NO CALCS (RT BREAST MASS) Procedures: HE/2, Gross/Micro L4, AE1-AE3, p63 ---- Patient: Sd Rehman [id number] (Continued) ---- Specimen: [id number] Received: 09/16/23 (Continued) Signed (signature on file) Trixie Washington MD 09/23/23 1457 ---- Specimen: [id number] Received: 09/16/23 Status: KISHAN Elizalde Num: [id number] Spec Type: Surgical Subm Dr: Patrick Odom DO Tissues: A BREAST CORE NO CALCS (RT BREAST MASS) Procedures: HE/2, Gross/Micro L4, AE1-AE3, p63 ---- Patient: Sd Rehman [id number] (Continued) ---- Specimen: [id number] Received: 09/16/23 (Continued) CPT Codes [id number] ---- ---- Specimen: [id number] Received: 09/16/23-6750 Status: KISHAN Elizalde Num: [id number] Spec Type: Surgical Subm Dr: Patrick Odom DO Tissues: A BREAST CORE NO CALCS (RT BREAST MASS) Procedures: HE/2, Gross/Micro L4, AE1-AE3, p63 ---- Patient: Sd Rehman [id number] (Continued) ---- Signed (signature on file) Trixie Washington MD 09/23/23 0444 Normal [facility] Surgical Pathologyon 024 Surgical Pathology Normal [facility] Comment on above: Result Comment: [facility] [address] [place] [address] Surgical Pathology Consultation Patient Name:SD REHMAN:1950 (Age: 73)Gender:FTaken:4Reported:4Physician(s):Guido King MD ([phone])Copy To: Rec. #:[id number]: #[id number] Final Pathologic Diagnosis 1. Ascending colon, polypectomy: [...] lesion without dysplasia. Report Electronically Signed Out rg/09/14/2023mo Koenig MD Interpretation performed at [facility], [address] [place] [address], License number: [id number]. Clinical History Screening. Gross Description 1. Received in formalin labeled, SHERIE, ascending are 6 of pale childs 0.2 to 0.4 cm soft tissue bits. The specimen is filtered and entirely submitted in a single cassette. (1, ns, [id number], m8) SM 2. Received in formalin labeled, SHERIE, colon at 110 cm are 2 childs-manzo 0.1 and 0.2 cm soft tissue bits. The specimen is filtered and entirely submitted in a single cassette. (1, ns, K01-72099-1, m8) SM 3. Received in formalin labeled, SHERIE, 100 cm are two manzo-childs 0.1 and 0.3 cm soft tissue bits. The specimen is filtered and entirely submitted in a single cassette. (1, ns, K64-16649-3, m8) SM 4. Received in formalin labeled, SHERIE, 90 cm are 4 manzo-childs polypoid portions of tissue that range from 0.2 to 0.6 cm. The specimen is filtered and entirely submitted in a single cassette. (1, ns, [id number], m8) SM 5. Received in formalin labeled, SHERIE, 70 cm is a childs-manzo 0.2 cm soft tissue bit. The specimen is filtered and entirely submitted in a single cassette. (1, ns, W10-22047-0, m8) SM 6. Received in formalin labeled SHERIE, 65 cm are 2 pale childs-manzo soft tissue bits less than 0.1 and 0.3 cm in greatest dimension. The specimen is filtered and entirely submitted in a single cassette. (1, ns, [id number], m8) SM 7. Received in formalin labeled, SHERIE, 25 cm is a manzo-childs 0.3 cm soft tissue bit. The specimen is filtered and entirely submitted in a single cassette. (1, ns, [id number], m8) SM 8. Received in formalin labeled, SHERIE, 15 cm is a manzo-childs polypoid portion of tissue 0.5 cm in greatest dimension. The specimen is bisected and entirely submitted in a single cassette. (1, ns, [id number], m8) SM 9. Received in formalin labeled, SHERIE, rectum check are 3 manzo-childs polypoid portions of tissue 0.3-0.4 and 0.5 cm in greatest dimension. The surgical margins of the largest polyp are inked the specimen is entirely submitted in a single cassette. (1, ns, K30-26737-6, m8) [facility]/09/10/2023GP Specimen(s) Received 1: Ascending colon polyp x2 2: Colon polyp 110cm 3: Colon polyp 100 cm x2 4: Colon polyp 90 cm x3 5: Colon polyp 70 cm 6: Colon polyp 65 cm x2 7: Colon polyp 25 cm 8: Colon polyp 15 cm x2 9: Rectal polyp x3 Fee Codes(s): 1; 06118 2; 61587 3; 56879 4; 25553 5; 07353 6; 72122 7; 18542 8; 63691 9; 77466 HGB A1C (GLYCO-HGB)on 2023 Glucose [Mass/Vol] 120 mg/dL Normal [facility] Comment on above: Performed By: #### 2 4331-1, 3016-3, HA1C #### [facility] ([id number]) [address], [address] [place] [address] HbA1c (Bld) [Mass fraction] 5.8 % High 4.4-5.6 [facility] Comment on above: Result Comment: NOTE ADA Guidelines Result HgbA1c Normal : less than 5.7 % Prediabetes : 5.7 % to 6.4 % Diabetes : > 6.4 % Use with caution in patients with abnormal hemoglobin variants as the half-life of red blood cells and in vivo glycation rates are affected. Performed By: #### 2 4331-1, 3016-3, HA1C #### [facility] ([id number]) [address], [address] [place] [address] Lipid 1996 panelon Cholesterol [Mass/Vol] 150 mg/dL Normal 150-200 [facility] Comment on above: Performed By: #### 2 4331-1, 3016-3, HA1C #### [facility] ([id number]) [address], [address] [place] [address] Cholesterol in HDL [Mass/Vol] 45 mg/dL Normal >39 [facility] Comment on above: Result Comment: HDL <40 mg/dL - High Risk HDL > or = 40mg/dL- Desirable HDL >60 mg/dL - Negative Risk Performed By: #### 2 4331-1, 3015-3, HA1C #### [facility] ([id number]) [address], [address] [address] Cholesterol in LDL [Mass/Vol] 68 mg/dL Normal <130 [facility] Comment on above: Result Comment: LDL <100 mg/dL - Desirable LDL >160 mg/dL - High Risk Performed By: #### 2 4331-1, 3015-3, HA1C #### [facility] ([id number]) [address], [address] [place] [address] Cholesterol in VLDL [Mass/Vol] 37 mg/dL High 0-30 [facility] Comment on above: Performed By: #### 2 4331-1, 3015-3, HA1C #### [facility] ([id number]) [address], [address] [place] [address] CHOLESTEROL:HDL 3.3 Normal 1.0-5.0 [facility] Comment on above: Performed By: #### 2 4331-1, 3015-3, HA1C #### [facility] ([id number]) [address], [address] [place] [address] Triglyceride [Mass/Vol] 183 mg/dL High 27-150 [facility] Comment on above: Performed By: #### 2 4331-1, 3015-3, HA1C #### [facility] ([id number]) [address], [address] [address] TSH Qnon 08-24-2023 TSH 1.10 uIU/mL Normal 0.49-4.67 [facility] Comment on above: Performed By: #### 2 4331-1, 3015-3, HA1C #### [facility] ([id number]) [address], [address] [place] [address] Erythrocyte distribution wid th Auto (RBC) [Ratio]on 08-20-2023 Erythrocyte distribution width (RBC) [Ratio] 15.0 % 11.0-15.0 [facility] Estimated glomerular filtrat ion rate (GFR) non- Americanon 08-20-2023 GFR/1.73 sq M.predicted among non-blacks MDRD (S/P/Bld) [Vol rate/Area] 29 mL/min/{1.73_m2} Low >=60 [facility] Hematocrit Auto (Bld) [Volum e fraction]on 08-20-2023 Hematocrit (Bld) [Volume fraction] 44.1 % 36.0-48.0 [facility] Hemoglobin [Mass/volume] in Bloodon 08-20-2023 Hemoglobin (Bld) [Mass/Vol] 14.2 g/dL 12.0-16.0 [facility] Iron binding capacity [Mass/ volume] in Serum or Plasmaon 08-20-2023 Iron binding capacity [Mass/Vol] 340.0 ug/dL 250.0-450.0 [facility] Iron saturation [Mass Fracti on] in Serum or Plasmaon 08-20-2023 Iron saturation [Mass fraction] 18.8 % [facility] Laboratory - Chemistry and C hemistry - challengeon 08-20-2023 Albumin [Mass/Vol] 3.5 g/dL 3.4-5.0 [facility] Calcium [Mass/Vol] 9.2 mg/dL 8.5-10.1 [facility] Chloride [Moles/Vol] 100 mmol/L 98-107 [facility] CO2 [Moles/Vol] 21.2 mmol/L 21.0-32.0 [facility] Creatinine [Mass/Vol] 1.75 mg/dL High 0.55-1.02 [facility] Ferritin [Mass/Vol] 94.0 ng/mL 8.0-252.0 [facility] GFR/1.73 sq M.predicted MDRD (S/P/Bld) [Vol rate/Area] 35 mL/min/{1.73_m2} Low >=60 [facility] Glucose [Mass/Vol] 107 mg/dL High 74-106 [facility] Iron [Mass/Vol] 64.0 ug/dL 50.0-170.0 [facility] Magnesium [Mass/Vol] 2.0 mg/dL 1.8-2.4 [facility] Potassium [Moles/Vol] 4.5 mmol/L 3.5-5.1 [facility] Sodium [Moles/Vol] 134 mmol/L Low 136-145 [facility] Urate [Mass/Vol] 5.0 mg/dL 2.6-6.0 [facility] Urea nitrogen [Mass/Vol] 30.0 mg/dL High 7.0-18.0 [facility] Urea nitrogen/Creatinine [Mass ratio] 17.1 mg/mg [facility] Bilirubin Ql (U) Negative NEGATIVE [facility] Glucose (U) [Mass/Vol] Negative NEGATIVE [facility] Ketones Ql (U) Negative NEGATIVE [facility] pH (U) 5.5 [pH] 5.0-9.0 [facility] Specific gravity (U) [Rel density] 1.010 1.005-1.025 [facility] Urobilinogen Qn (U) 0.2 {Favio'U}/dL 0.2-1.0 [facility] Laboratory - Specimen inform ationon 08-20-2023 Appearance (U) CLEAR CLEAR [facility] Color (U) LT. YELLOW YELLOW [facility] Laboratory - Urinalysison Leukocyte esterase Test strip Ql (U) Negative NEGATIVE [facility] Mucus Ql (Urine sed) NONE SEEN NONE SEEN [facility] Nitrite Ql (U) Negative NEGATIVE [facility] Protein (U) [Mass/Vol] 18.5 mg/dL High <=11.9 [facility] Protein Ql (U) Negative NEG/TRACE [facility] Leukocytes [#/volume] correc van for nucleated erythrocytes in Blood by Automated counon 08-20-2023 WBC corrected for nucl RBC Auto (Bld) [#/Vol] 13.5 10 3/uL High 4.0-11.0 [facility] MCH Auto (RBC) [Entitic mass ]on 08-20-2023 MCH (RBC) [Entitic mass] 32.2 pg 26.7-34.0 [facility] MCHC Auto (RBC) [Mass/Vol]on 08-20-2023 MCHC (RBC) [Mass/Vol] 32.2 g/dL 29.9-35.2 [facility] MCV Auto (RBC) [Entitic vol] on 08-20-2023 MCV (RBC) [Entitic vol] 100.0 fL High 81.0-99.0 [facility] No Panel Informationon 08-19 25-Hydroxy Vitamin D Total 24.8 ng/mL [facility] Comment on above: <20 ng/mL Vit D defi cient20-<30 ng/mL Vit D aivnazmtwjyv23-397 ng/mL Vit D sufficient>100 ng/mL Potential Toxicity Parathyroid Hormone (Intact) 104 pg/mL Abnormal 15-65 [facility] Comment on above: Performed at: [facility] [address] [id number] Director: Abdulaziz Honeycutt PhD, Phone: [phone] Phosphorus Level 3.1 mg/dL 2.6-4.7 [facility] Urine Bacteria NONE SEEN #/HPF NONE SEEN [facility] Urine Occult Blood Negative NEGATIVE [facility] Urine Other Casts NONE SEEN #/LPF NONE SEEN [facility] Urine Other Crystals None Seen #/HPF None Seen [facility] Urine Random Creatinine 41.92 mg/dL 20.00-300.00 [facility] Urine RBC NONE SEEN #/HPF 0-2 [facility] Urine Squamous Epithelial Cells NONE SEEN #/LPF NONE/RARE [facility] Urine WBC NONE SEEN #/HPF NONE SEEN [facility] Platelet mean volume Auto (B ld) [Entitic vol]on 08-20-2023 Platelet mean volume (Bld) [Entitic vol] 9.8 fL 9.5-13.5 [facility] Platelets Auto (Bld) [#/Vol] on 08-20-2023 Platelets (Bld) [#/Vol] 388 10 3/uL 150-450 [facility] RBC Auto (Bld) [#/Vol]on RBC (Bld) [#/Vol] 4.41 10 6/uL 4.20-5.40 [facility] Serum or plasma anion gap de terminationon 08-20-2023 Anion gap [Moles/Vol] 17.3 mmol/L [facility] Urine protein/creatinine rat ioon 08-20-2023 Protein/Creatinine (U) [Ratio] 0.44 [facility] Office Visiton 07-22-2023 Follow-up visit [id number] Sd Rehman 1950 Date Provider Department Center 07/22/2023 RUPINDER RASHEED Family History Problem Relation Age of Onset Hypertension Mother Heart disease Mother Cancer Father Family Status - Relation Status Age at Mother Father Level of Service:23045 [place] OFFICE/OUTPATIENT ESTABLISHED LOW MDM 20 MIN Normal [facility] Office Visiton 12-15-2022 Follow-up visit [id number] Sd Rehman 1950 F Date Provider Department Center 12/15/2022 RUPINDER RASHEED Family History Problem Relation Age of Onset Hypertension Mother Heart disease Mother Cancer Father Family Status - Relation Status Age at Mother Father Level of Service:08842 [place] OFFICE/OUTPATIENT ESTABLISHED MOD MDM 30-39 MIN Normal [facility] Office Visiton 09-22-2022 Follow-up visit [id number] Sd Rehman 1950 F Date Provider Department Center 09/22/2022 RUPINDER RASHEED Family History Problem Relation Age of Onset Hypertension Mother Heart disease Mother Cancer Father Family Status - Relation Status Age at Mother Father Level of Service:53514 [place] OFFICE/OUTPATIENT ESTABLISHED LOW MDM 20-29 MIN Normal [facility] CBC, EDIF, PLATELETon 2022 ABSOLUTE BASOPHIL COUNT 0.0 10*3/uL 0.0 - 0.2 10*3/uL [facility] Basophils/100 WBC (Bld) 0.1 % 0.0 - 2.0 % [facility] Differential cell count method Nom (Bld) AUTO DIFF % [facility] Eosinophils (Bld) [#/Vol] 0.0 10*3/uL 0.0 - 0.7 10*3/uL [facility] Eosinophils/100 WBC (Bld) 0.0 % 0.0 - 11.0 % [facility] Erythrocyte distribution width (RBC) [Ratio] 14.7 % High 11.5 - 14.5 % [facility] Hematocrit (Bld) [Volume fraction] 29.0 % Low 36.0 - 48.0 % [facility] Hemoglobin (Bld) [Mass/Vol] 9.5 g/dL Low [facility] Interpretation and review of laboratory results Abnormal [facility] Lymphocytes (Bld) [#/Vol] 0.9 10*3/uL Low 1.2 - 3.4 10*3/uL [facility] Lymphocytes/100 WBC (Bld) 5.1 % Low 20.0 - 55.0 % [facility] MCH (RBC) [Entitic mass] 31.1 pg 26.0 - 35.0 PG [facility] MCHC (RBC) [Mass/Vol] 32.7 g/dL [facility] MCV (RBC) [Entitic vol] 95.0 fL [facility] Monocytes (Bld) [#/Vol] 1.3 10*3/uL High 0.0 - 0.7 10*3/uL [facility] Monocytes/100 WBC (Bld) 7.3 % 0.0 - 10.0 % [facility] Neutrophils (Bld) [#/Vol] 15.5 10*3/uL High 1.4 - 6.5 10*3/uL [facility] Neutrophils/100 WBC (Bld) 87.5 % High 37.0 - 75.0 % [facility] Platelet mean volume (Bld) [Entitic vol] 8.1 fL [facility] Platelets (Bld) [#/Vol] 330 10*3/uL 130.0 - 400.0 10*3/uL [facility] RBC (Bld) [#/Vol] 3.05 10*6/uL Low 4.0 - 5.4 10*6/uL [facility] WBC (Bld) [#/Vol] 17.7 10*3/uL High 3.6 - 11.0 10*3/uL [facility] RENAL FUNCTION PANELon 06-11 Albumin [Mass/Vol] 3.1 G/dl Low 3.5 - 5.0 G/dl [facility] Calcium [Mass/Vol] 8.6 mg/dL [facility] Chloride [Moles/Vol] 99 mmol/L [facility] CO2 [Moles/Vol] 21 mmol/L Low [facility] Creatinine [Mass/Vol] 1.48 mg/dL High [facility] GFR COMMENT Average GFR for 70+ years old = 75. [facility] Comment on above: Chronic Kidney disea se, GFR = <60. Kidney failure, GFR = <15. The GFR estimate is not adjusted for extreme body surface area or acute process, nor has it been validated for women or ethnic groups other than and . GFR/1.73 sq M.predicted among blacks MDRD (S/P/Bld) [Vol rate/Area] 45 mL/min/{1.73_m2} ml/min/1.73sq .m [facility] GFR/1.73 sq M.predicted among non-blacks MDRD (S/P/Bld) [Vol rate/Area] 37 mL/min/{1.73_m2} ml/min/1.73sq .m [facility] Glucose post fast [Mass/Vol] 137 mg/dL High [facility] Comment on above: NORMAL <100 mg/dL PREDIABETES 101-126 mg/dL DIABETES 126 mg/dL or higher Interpretation and review of laboratory results Abnormal [facility] Phosphate [Mass/Vol] 3.2 mg/dL [facility] Potassium [Moles/Vol] 4.2 mmol/L [facility] Sodium [Moles/Vol] 132 mmol/L Low [facility] Urea nitrogen [Mass/Vol] 36 mg/dL High [facility] CBC, EDIF, PLATELETon 2022 ABSOLUTE BASOPHIL COUNT 0.0 10*3/uL 0.0 - 0.2 10*3/uL [facility] Basophils/100 WBC (Bld) 0.1 % 0.0 - 2.0 % [facility] Differential cell count method Nom (Bld) AUTO DIFF % [facility] Eosinophils (Bld) [#/Vol] 0.0 10*3/uL 0.0 - 0.7 10*3/uL [facility] Eosinophils/100 WBC (Bld) 0.0 % 0.0 - 11.0 % [facility] Erythrocyte distribution width (RBC) [Ratio] 14.7 % High 11.5 - 14.5 % [facility] Hematocrit (Bld) [Volume fraction] 32.2 % Low 36.0 - 48.0 % [facility] Hemoglobin (Bld) [Mass/Vol] 10.5 g/dL Low [facility] Interpretation and review of laboratory results Abnormal [facility] Lymphocytes (Bld) [#/Vol] 0.8 10*3/uL Low 1.2 - 3.4 10*3/uL [facility] Lymphocytes/100 WBC (Bld) 4.8 % Low 20.0 - 55.0 % [facility] MCH (RBC) [Entitic mass] 31.3 pg 26.0 - 35.0 PG [facility] MCHC (RBC) [Mass/Vol] 32.7 g/dL [facility] MCV (RBC) [Entitic vol] 95.6 fL [facility] Monocytes (Bld) [#/Vol] 0.5 10*3/uL 0.0 - 0.7 10*3/uL [facility] Monocytes/100 WBC (Bld) 2.8 % 0.0 - 10.0 % [facility] Neutrophils (Bld) [#/Vol] 14.8 10*3/uL High 1.4 - 6.5 10*3/uL [facility] Neutrophils/100 WBC (Bld) 92.3 % High 37.0 - 75.0 % [facility] Platelet mean volume (Bld) [Entitic vol] 7.7 fL [facility] Platelets (Bld) [#/Vol] 352 10*3/uL 130.0 - 400.0 10*3/uL [facility] RBC (Bld) [#/Vol] 3.37 10*6/uL Low 4.0 - 5.4 10*6/uL [facility] WBC (Bld) [#/Vol] 16.1 10*3/uL High 3.6 - 11.0 10*3/uL [facility] NOVEL CORONAVIRUS LAB 1 - NA SOPHARYNGEALon 06-10-2022 NARRATIVE -1 This test was performed using isothermal GABRIELA and has been approved as Emergency Use Authorization (EUA) for the qualitative detection [id number]-[id number]-2 nucleic acid. [facility] SARS-CoV-2 (COVID-19) RNA GABRIELA+probe Ql (Unsp spec) Not detected NOT DETECTED [facility] Comment on above: Negative results do not [...] patient is critically ill or clinically deteriorating. [facility] RENAL FUNCTION PANELon 06-10 Albumin [Mass/Vol] 3.3 G/dl Low 3.5 - 5.0 G/dl [facility] Calcium [Mass/Vol] 8.9 mg/dL [facility] Chloride [Moles/Vol] 102 mmol/L [facility] CO2 [Moles/Vol] 21 mmol/L Low [facility] Creatinine [Mass/Vol] 1.40 mg/dL High [facility] GFR COMMENT Average GFR for 70+ years old = 75. [facility] Comment on above: Chronic Kidney disea se, GFR = <60. Kidney failure, GFR = <15. The GFR estimate is not adjusted for extreme body surface area or acute process, nor has it been validated for women or ethnic groups other than and . GFR/1.73 sq M.predicted among blacks MDRD (S/P/Bld) [Vol rate/Area] 48 mL/min/{1.73_m2} ml/min/1.73sq .m [facility] GFR/1.73 sq M.predicted among non-blacks MDRD (S/P/Bld) [Vol rate/Area] 40 mL/min/{1.73_m2} ml/min/1.73sq .m [facility] Glucose post fast [Mass/Vol] 158 mg/dL High [facility] Comment on above: NORMAL <100 mg/dL PREDIABETES 101-126 mg/dL DIABETES 126 mg/dL or higher Interpretation and review of laboratory results Abnormal [facility] Phosphate [Mass/Vol] 3.8 mg/dL [facility] Potassium [Moles/Vol] 4.6 mmol/L [facility] Sodium [Moles/Vol] 133 mmol/L Low [facility] Urea nitrogen [Mass/Vol] 30 mg/dL High [facility] REPEAT ABO/RH (D) TYPINGon 0 06-09-2022 ABO and Rh group Nom (Bld ) Positive [facility] SCREEN: MRSA ONLY, NARES (IS OLATION SCREEN)on 06-09-2022 MRSA isol Org specific cx Ql (Nose) Not detected NOT DETECTED [facility] STAPHYOCOCCUS AUREUS BY PCR Not detected NOT DETECTED [facility] XR Knee - right 2 Viewson [...] of complication. Expected perioperative soft tissue changes. [facility] Radiology Study observation (narrative) [facility] XR Knee - right 2 ViewsOrder ed By: Teresa Clemens on 06-09-2022 [facility] Work Phone: ECHOCARDIO M/2D COMPLETEon 0 05-29-2022 ECHOCARDIO M/2D COMPLETE Patient: SHERIE SD RocheRob Exam Date: 05/29/2022 : 1950 Gender:F Ordering : MRS. JEANIE STANLEY [employer] Admission #: [id number] Family : Order #: [id number] CLICK HERE TO VIEW EXAM ECHOCARDIOGRAM REPORT [...] M.D. on 05/29/2022 at 17:11 Normal [facility] PTH INTACTon 05-29-2022 PTH, Intact 50 pg/mL Normal 15-65 [facility] Comment on above: Performed By: #### M G, RENAL, URIC #### [facility] [address] [place] [address] Dr. Demetra Costa HEMOGRAM AND PLATELon 2022 Hematocrit (Bld) [Volume fraction] 34.9 % Critically low 36.0-48.0 [facility] Comment on above: Performed By: #### H H #### [facility] [address] [place] [address] Dr. Demetra Costa Hemoglobin (Bld) [Mass/Vol] 11.2 g/dL Critically low 12.0-16.0 [facility] Comment on above: Performed By: #### H H #### [facility] [address] [place] [address] Dr. Demetra Costa MCH (RBC) [Entitic mass] 30.9 pg Normal 26.7-34.0 [facility] Comment on above: Performed By: #### H H #### [facility] [address] [place] [address] Dr. Demetra Costa MCHC (RBC) [Mass/Vol] 32.1 g/dL Normal 29.9-35.2 [facility] Comment on above: Performed By: #### H H #### [facility] [address] [place] [address] Dr. Demetra Costa MCV (RBC) [Entitic vol] 96.4 fL Normal 81.0-99.0 [facility] Comment on above: Performed By: #### H H #### [facility] [address] [place] [address] Dr. Demetra Costa PLT 341 103/ul Normal 150-450 [facility] Comment on above: Performed By: #### H H #### [facility] [address] [place] [address] Dr. Demetra Costa RBC 3.62 106/ul Critically low 4.20-5.40 [facility] Comment on above: Performed By: #### H H #### [facility] [address] [place] [address] Dr. Demetra Costa WBC 9.8 103/ul Normal 4.0-11.0 [facility] Comment on above: Performed By: #### H H #### [facility] [address] [place] [address] Dr. Demetra Costa MAGNESIUMon 05-28-2022 Magnesium [Mass/Vol] 1.9 mg/dL Normal 1.8-2.4 [facility] Comment on above: Performed By: #### M G, RENAL, URIC #### [facility] [address] [place] [address] Dr. Demetra Costa RENAL FUNCTION PANELon 05-28 Albumin [Mass/Vol] 3.2 g/dL Critically low 3.4-5.0 [facility] Comment on above: Performed By: #### M G, RENAL, URIC #### [facility] [address] [address] [address] Demetra Costa Calcium [Mass/Vol] 9.4 mg/dL Normal 8.5-10.1 [facility] Comment on above: Performed By: #### M G, RENAL, URIC #### [facility] [address] [address] [address] Demetra Costa Chloride [Moles/Vol] 103 mmol/L Normal 98-107 [facility] Comment on above: Performed By: #### M G, RENAL, URIC #### [facility] [address] [place] [address] Dr. Demetra Costa CO2 [Moles/Vol] 25.4 mmol/L Normal 21.0-32.0 [facility] Comment on above: Performed By: #### M G, RENAL, URIC #### [facility] [address] [place] [address] Dr. Demetra Costa Creatinine [Mass/Vol] 1.52 mg/dL Critically high 0.55-1.02 [facility] Comment on above: Performed By: #### M G, RENAL, URIC #### [facility] [address] [place] [address] Dr. Demetra Costa EGFR-AF COLOMBIAN 41 mL/min/1.73m2 Critically low >=60 [facility] Comment on above: Performed By: #### M G, RENAL, URIC #### [facility] [address] [place] [address] Dr. Demetra Costa EGFR-NON AF COLOMBIAN 34 mL/min/1.73m2 Critically low >=60 [facility] Comment on above: Performed By: #### M G, RENAL, URIC #### [facility] [address] [place] [address] Dr. Demetra Costa Glucose [Mass/Vol] 115 mg/dL Critically high 74-106 [facility] Comment on above: Performed By: #### M G, RENAL, URIC #### [facility] [address] [place] [address] Dr. Demetra Costa Phosphate [Mass/Vol] 3.5 mg/dL Normal 2.6-4.7 [facility] Comment on above: Performed By: #### M G, RENAL, URIC #### [facility] [address] [place] [address] Dr. Demetra Costa Potassium [Moles/Vol] 4.7 mmol/L Normal 3.5-5.1 [facility] Comment on above: Performed By: #### M G, RENAL, URIC #### [facility] [address] [place] [address] Dr. Demetra Costa Sodium [Moles/Vol] 137 mmol/L Normal 136-145 [facility] Comment on above: Performed By: #### M G, RENAL, URIC #### [facility] [address] [place] [address] Dr. Demetra Costa Urea nitrogen [Mass/Vol] 29.0 mg/dL Critically high 7.0-18.0 [facility] Comment on above: Performed By: #### M G, RENAL, URIC #### [facility] [address] [place] [address] Dr. Demetra Costa URIC ACID SERUMon 05-28-2022 Urate [Mass/Vol] 5.1 mg/dL Normal 2.6-6.0 [facility] Comment on above: Performed By: #### M G, RENAL, URIC #### [facility] [address] [place] [address] Dr. Demetra Costa VITAMIN D 25 OHon 05-28-2022 VIT D 25-OH 29.1 ng/mL Normal [facility] Comment on above: Performed By: #### U PARESH, CMP #### [facility] [address] [place] [address] Dr. Demetra Costa VIT D RANGES SEE BELOW Normal [facility] Comment on above: Result Comment: <20 ng/mL Vit D deficient 20 - <30 ng/mL Vit D insufficient 30 - 100 ng/mL Vit D sufficient >100 ng/mL Potential Toxicity Performed By: #### U PARESH, CMP #### [facility] [address] [place] [address] Dr. Demetra Lomeli 05-05-2022 ANNE Telephone ([place]) SHERIESD Melchor ([id number]) 1950 F Date Time Provider Department 05/05/22 [...] Status:Closed by ALEXANDRA QUICK on 05/05/22 Normal [facility] CBC W Auto Differential pane l (Bld)on 05-02-2022 Basophils (Bld) [#/Vol] 0.12 10*3/uL High <0.11 [facility] Comment on above: Order Comment: Speci men Type: BLOOD SPECIMEN Ordering Facility: [facility] Address: [address] [address] Performed By: #### 5 7021-8 #### [facility] CLIA [id number] [address] [place] [address]07 Basophils/100 WBC (Bld) 0.9 % Normal [facility] Comment on above: Order Comment: Speci men Type: BLOOD SPECIMEN Ordering Facility: [facility] Address: [address] [address] Performed By: #### 5 7021-8 #### [facility] CLIA [id number] [address] [place] [address] Differential cell count method Nom (Bld) Auto Normal [facility] Comment on above: Order Comment: Speci men Type: BLOOD SPECIMEN Ordering Facility: [facility] Address: [address] [address] Performed By: #### 5 7021-8 #### [facility] CLIA [id number] [address] [place] [address]78 Eosinophils (Bld) [#/Vol] 0.27 10*3/uL Normal <0.46 [facility] Comment on above: Order Comment: Speci men Type: BLOOD SPECIMEN Ordering Facility: [facility] Address: [address] [address] Performed By: #### 5 7021-8 #### [facility] CLIA [id number] [address] [place] [address]15 Eosinophils/100 WBC (Bld) 2.0 % Normal [facility] Comment on above: Order Comment: Speci men Type: BLOOD SPECIMEN Ordering Facility: [facility] Address: [address] [address] Performed By: #### 5 7021-8 #### [facility] CLIA [id number] [address] [place] [address] 02727 Erythrocyte distribution width (RBC) [Ratio] 13.2 % Normal 11.5-15.0 [facility] Comment on above: Order Comment: Speci men Type: BLOOD SPECIMEN Ordering Facility: [facility] Address: [address] [address] Performed By: #### 5 7021-8 #### [facility] CLIA [id number] [address] [place] [address] 17573 Hematocrit (Bld) [Volume fraction] 38.6 % Normal 36.0-46.0 [facility] Comment on above: Order Comment: Speci men Type: BLOOD SPECIMEN Ordering Facility: [facility] Address: [address] [address] Performed By: #### 5 7021-8 #### [facility] CLIA [id number] [address] [place] [address] 75430 Hemoglobin (Bld) [Mass/Vol] 12.4 g/dL Normal 11.5-15.5 [facility] Comment on above: Order Comment: Speci men Type: BLOOD SPECIMEN Ordering Facility: [facility] Address: [address] [place] [address] Performed By: #### 5 7021-8 #### [facility] CLIA [id number] [address] [place] [address] 37291 Immature granulocytes (Bld) [#/Vol] 0.09 10*3/uL Normal <0.10 [facility] Comment on above: Order Comment: Speci men Type: BLOOD SPECIMEN Ordering Facility: [facility] Address: [address] [place] [address] Performed By: #### 5 7021-8 #### [facility] CLIA [id number] [address] [place] [address] 46844 Immature granulocytes/100 WBC (Bld) 0.7 % Normal [facility] Comment on above: Order Comment: Speci men Type: BLOOD SPECIMEN Ordering Facility: [facility] Address: [address] [place] [address] Performed By: #### 5 7021-8 #### [facility] CLIA [id number] [address] [place] [address] 71202 Lymphocytes (Bld) [#/Vol] 2.78 10*3/uL Normal 1.00-4.00 [facility] Comment on above: Order Comment: Speci men Type: BLOOD SPECIMEN Ordering Facility: [facility] Address: [address] [place] [address] Performed By: #### 5 7021-8 #### [facility] CLIA [id number] [address] [place] [address] 50774 Lymphocytes/100 WBC (Bld) 20.1 % Normal [facility] Comment on above: Order Comment: Speci men Type: BLOOD SPECIMEN Ordering Facility: [facility] Address: [address] [address] Performed By: #### 5 7021-8 #### [facility] CLIA [id number] [address] [place] [address] 94396 MCH (RBC) [Entitic mass] 31.3 pg Normal 26.0-34.0 [facility] Comment on above: Order Comment: Speci men Type: BLOOD SPECIMEN Ordering Facility: [facility] Address: [address] [address] Performed By: #### 5 7021-8 #### [facility] CLIA [id number] [address] [place] [address] 91694 MCHC (RBC) [Mass/Vol] 32.1 g/dL Normal 30.5-36.0 [facility] Comment on above: Order Comment: Speci men Type: BLOOD SPECIMEN Ordering Facility: [facility] Address: [address] [address] Performed By: #### 5 7021-8 #### [facility] CLIA [id number] [address] [place] [address] 57667 MCV (RBC) [Entitic vol] 97.5 fL Normal 80.0-100.0 [facility] Comment on above: Order Comment: Speci men Type: BLOOD SPECIMEN Ordering Facility: [facility] Address: [address] [address] Performed By: #### 5 7021-8 #### [facility] CLIA [id number] [address] [place] [address] 88870 Monocytes (Bld) [#/Vol] 1.13 10*3/uL High <0.87 [facility] Comment on above: Order Comment: Speci men Type: BLOOD SPECIMEN Ordering Facility: [facility] Address: [address] [place] [address] Performed By: #### 5 7021-8 #### [facility] CLIA [id number] [address] [place] [address] 00778 Monocytes/100 WBC (Bld) 8.2 % Normal [facility] Comment on above: Order Comment: Speci men Type: BLOOD SPECIMEN Ordering Facility: [facility] Address: [address] [address] Performed By: #### 5 7021-8 #### [facility] CLIA [id number] [address] [place] [address] 63366 Neutrophils (Bld) [#/Vol] 9.43 10*3/uL High 1.45-7.50 [facility] Comment on above: Order Comment: Speci men Type: BLOOD SPECIMEN Ordering Facility: [facility] Address: [address] [address] Performed By: #### 5 7021-8 #### [facility] CLIA [id number] [address] [place] [address] 48450 Neutrophils/100 WBC (Bld) 68.1 % Normal [facility] Comment on above: Order Comment: Speci men Type: BLOOD SPECIMEN Ordering Facility: [facility] Address: [address] [address] Performed By: #### 5 7021-8 #### [facility] CLIA [id number] [address] [place] [address] 69382 Nucleated RBC (Bld) [#/Vol] 10*3/uL Normal <0.01 [facility] Comment on above: Order Comment: Speci men Type: BLOOD SPECIMEN Ordering Facility: [facility] Address: [address] [address] Performed By: #### 5 7021-8 #### [facility] CLIA [id number] [address] [place] [address] 53869 Nucleated RBC/100 WBC (Bld) [Ratio] 0.0 /100 WBC Normal [facility] Comment on above: Order Comment: Speci men Type: BLOOD SPECIMEN Ordering Facility: [facility] Address: [address] [address] Performed By: #### 5 7021-8 #### [facility] CLIA [id number] [address] [place] [address] Platelet mean volume (Bld) [Entitic vol] 8.6 fL Low 9.0-12.7 [facility] Comment on above: Order Comment: Speci men Type: BLOOD SPECIMEN Ordering Facility: [facility] Address: [address] [place] [address] Performed By: #### 5 7021-8 #### [facility] CLIA [id number] [address] [place] [address] 90637 Platelets (Bld) [#/Vol] 416 10*3/uL High 150-400 [facility] Comment on above: Order Comment: Speci men Type: BLOOD SPECIMEN Ordering Facility: [facility] Address: [address] [place] [address] Performed By: #### 5 7021-8 #### [facility] CLIA [id number] [address] [place] [address] 87933 RBC (Bld) [#/Vol] 3.96 10*6/uL Normal 3.90-5.20 [facility] Comment on above: Order Comment: Speci men Type: BLOOD SPECIMEN Ordering Facility: [facility] Address: [address] [place] [address] Performed By: #### 5 7021-8 #### [facility] CLIA [id number] [address] [place] [address] 63785 WBC (Bld) [#/Vol] 13.82 10*3/uL High 3.70-11.00 [facility] Comment on above: Order Comment: Speci men Type: BLOOD SPECIMEN Ordering Facility: [facility] Address: [address] [place] [address] Performed By: #### 5 7021-8 #### [facility] CLIA [id number] [address] [place] [address] 96017 CNOVSPon 05-02-2022 CNOVSP Visit (SP) Office ([place]) SD REHMAN Melchor ([id number]) 1950 F Date Time Provider Department 05/02/22 2:30 PM DENNIS LOMAS During your visit today, we recorded the following information about you: Temperature Pulse Respiration Blood pressure 97.2 degrees 94/minute 16/minute 149/74 Weight Height 101.4 kg 1.575 m Dennis Lomas MD 05/10/2022 10:42 AM Signed NAME: Sd Rehman CLINIC NO.: [id number] DATE OF SERVICE: May 02, 2022 (Feliciano) Some elements in this clinic note that are critical to medical decision making have been carefully reviewed and included from a prior clinic note dated: February 28, 2022 (Feliciano) Referring Provider: Odell Jones Additional Clinicians involved in Sd Melchor Sherie's care: Olivia Devries DIAGNOSIS: leukocytosis ASSESSMENT: 71 [...] in week of july 2022 Repeat labs - [...] Known A (more content not included)... Normal [facility] CRP SerPl-mCncon 05-02-2022 CRP [Mass/Vol] 1.9 mg/dL High <0.9 [facility] Comment on above: Order Comment: Speci men Type: BLOOD SPECIMEN Ordering Facility: [facility] Address: [address] [place], [place] [address]TY[place] [address] Performed By: #### 5 0190-8, 1987-5, 2276-4 #### [facility] CLIA [id number] [address] [facility] [id number] [address] [facility] Comprehensive metabolic 2000 panelon 05-02-2022 Albumin [Mass/Vol] 4.0 g/dL Normal 3.9-4.[address] [facility] Comment on above: Order Comment: Speci men Type: BLOOD SPECIMEN Ordering Facility: [facility] Address: [address] Performed By: #### 2 532-0, 43230-6 #### [facility] CLIA [id number] [address] [place] [address]75 ALP [Catalytic activity/Vol] 117 U/L Normal 34-123 [facility] Comment on above: Order Comment: Speci men Type: BLOOD SPECIMEN Ordering Facility: [facility] Address: [address] [address] Performed By: #### 2 532-0, 32371-2 #### [facility] CLIA [id number] [address] [place] [address] 45448 ALT [Catalytic activity/Vol] 9 U/L Normal 7-38 [facility] Comment on above: Order Comment: Speci men Type: BLOOD SPECIMEN Ordering Facility: [facility] Address: [address] Performed By: #### 2 532-0, 35864-9 #### [facility] CLIA [id number] [address] [place] [address]3975 Anion gap [Moles/Vol] 12 mmol/L Normal 9-18 [facility] Comment on above: Order Comment: Speci men Type: BLOOD SPECIMEN Ordering Facility: [facility] Address: [address] Performed By: #### 2 532-0, 47749-2 #### [facility] CLIA [id number] [address] [place] [address]1972 AST [Catalytic activity/Vol] 12 U/L Low 13-35 [facility] Comment on above: Order Comment: Speci men Type: BLOOD SPECIMEN Ordering Facility: [facility] Address: [address] [address] Performed By: #### 2 532-0, #### [facility] CLIA [id number] [address] [place] [address]207 Bilirubin [Mass/Vol] 0.3 mg/dL Normal 0.2-1.3 [facility] Comment on above: Order Comment: Speci men Type: BLOOD SPECIMEN Ordering Facility: [facility] Address: [address] [address] Performed By: #### 2 532-0, #### [facility] CLIA [id number] [address] [place] [address]38 Calcium [Mass/Vol] 10.1 mg/dL Normal 8.5-10.[address] [facility] Comment on above: Order Comment: Speci men Type: BLOOD SPECIMEN Ordering Facility: [facility] Address: [address] [address] Performed By: #### 2 532-0, #### [facility] CLIA [id number] [address] [place] [address]21 Chloride [Moles/Vol] 104 mmol/L Normal 97-105 [facility] Comment on above: Order Comment: Speci men Type: BLOOD SPECIMEN Ordering Facility: [facility] Address: [address] Performed By: #### 2 532-0, #### [facility] CLIA [id number] [address] [place] [address]001 CO2 [Moles/Vol] 25 mmol/L Normal 22-30 [facility] Comment on above: Order Comment: Speci men Type: BLOOD SPECIMEN Ordering Facility: [facility] Address: [address] [address] Performed By: #### 2 532-0, 19199-1 #### [facility] CLIA [id number] [address] [place] [address]39 Creatinine [Mass/Vol] 1.78 mg/dL High 0.58-0.96 [facility] Comment on above: Order Comment: Tere dubois Type: BLOOD SPECIMEN Ordering Facility: [facility] Address: [address] Performed By: #### 2 532-0, 80656-4 #### [facility] CLIA [id number] [address] [place] [address]652 ESTIMATED GLOMERULAR FILTRATION RATE 30 mL/min/1.73m??? Low >=60 [facility] Comment on above: Order Comment: Tere dubois Type: BLOOD SPECIMEN Ordering Facility: [facility] Address: [address] [place] [address] Result Comment: Linda mated Glomerular Filtration Rate [...] actual GFR. Performed By: #### 2 532-0, 14239-5 #### [facility] CLIA [id number] [address] [place] [address] 39336 Glucose [Mass/Vol] 97 mg/dL Normal 74-[address] [facility] Comment on above: Order Comment: Tere dubois Type: BLOOD SPECIMEN Ordering Facility: [facility] Address: [address] [place], [place] [address] Result Comment: The [place] [employer] (ADA) provides guidance for cutoff [...] Standards of Medical Care in Diabetes 2016, [place] [employer]. Diabetes Care. 2016.39(Suppl 1). Performed By: #### 2 532-0, 90874-8 #### [facility] CLIA [id number] [address] [place] [address] 77049 Potassium [Moles/Vol] 4.4 mmol/L Normal 3.7-5.1 [facility] Comment on above: Order Comment: Speci men Type: BLOOD SPECIMEN Ordering Facility: [facility] Address: [address] [address] Performed By: #### 2 532-0, 31871-4 #### [facility] CLIA [id number] [address] [place] [address] 04635 Protein [Mass/Vol] 7.1 g/dL Normal 6.3-8.[address] [facility] Comment on above: Order Comment: Speci men Type: BLOOD SPECIMEN Ordering Facility: [facility] Address: [address] [address] Performed By: #### 2 532-0, 01455-9 #### [facility] CLIA [id number] [address] [place] [address] 47097 Sodium [Moles/Vol] 141 mmol/L Normal 136-[address] [facility] Comment on above: Order Comment: Speci men Type: BLOOD SPECIMEN Ordering Facility: [facility] Address: [address] [address] Performed By: #### 2 532-0, 68029-4 #### [facility] CLIA [id number] [address] [place] [address] 80206 Urea nitrogen [Mass/Vol] 33 mg/dL High 7-21 [facility] Comment on above: Order Comment: Speci men Type: BLOOD SPECIMEN Ordering Facility: [facility] Address: [address] [address] Performed By: #### 2 532-0, 95580-7 #### [facility] CLIA [id number] [address] [place], [place] [id number] ESR Westergren method (Bld) [Velocity]on 05-02-2022 ESR (Bld) [Velocity] 79 mm/h High 0-20 [facility] Comment on above: Order Comment: Speci men Type: BLOOD SPECIMENOrdering Facility: [facility] Address: [address] [place] [address] Performed By: #### 4 537-7 ####[facility] [id number] [place] [address] [place] Ferritin SerPl-mCncon 2022 Ferritin [Mass/Vol] 113.0 ng/mL Normal 14.7-205.1 [facility] Comment on above: Order Comment: Speci men Type: BLOOD SPECIMEN Ordering Facility: [facility] Address: [address] [place] [address] Performed By: #### 5 0190-8, 1987-, 64 #### [facility] CLIA [id number] [address] [place] [address] [place] Folate SerPl-mCncon 05-02-19 23 Folate [Mass/Vol] 3.4 ng/mL Low >4.7 [facility] Comment on above: Order Comment: Speci men Type: BLOOD SPECIMEN Ordering Facility: [facility] Address: [address] [place] [address] Performed By: #### 2 132-9, 2284-8 #### [facility] CLIA [id number] [address] [place] [address] [place] Iron and Iron binding capaci ty panelon 05-02-2022 Iron [Mass/Vol] 52 ug/dL Normal 41-186 [facility] Comment on above: Order Comment: Speci men Type: BLOOD SPECIMEN Ordering Facility: [facility] Address: [address] [place], [place] [address] Performed By: #### 5 0190-8, 1987-07, 2275-06 #### [facility] CLIA [id number] [address] [place] [address] [place] Iron binding capacity [Mass/Vol] 310 ug/dL Normal 232-386 [facility] Comment on above: Order Comment: Speci men Type: BLOOD SPECIMEN Ordering Facility: [facility] Address: [address] [place], [place] [address] Performed By: #### 5 0190-8, 2275-06 #### [facility] CLIA [id number] [address] [place] [address] [place] Iron/TIBC [Molar ratio] 16.8 % Normal 15.0-57.0 [facility] Comment on above: Order Comment: Speci men Type: BLOOD SPECIMEN Ordering Facility: [facility] Address: [address] [place] [address] Performed By: #### 5 0190-8, 2275-06 #### [facility] CLIA [id number] [address] [place] [address] [place] LDH SerPl-cCncon 05-02-2022 LDH [Catalytic activity/Vol] 177 U/L Normal 135-214 [facility] Comment on above: Order Comment: Speci men Type: BLOOD SPECIMEN Ordering Facility: [facility] Address: [address] [place], [place] [address] Performed By: #### 2 532-0, 69769-8 #### 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 [facility] Whole body Views W In-111 tagged WBC IVOrdered By: Teresa Steve on 03-11-2022 [facility] Work Phone: NUC BONE MARROW LIMITED AREA [...] infection about the right knee arthroplasty. Normal [facility] NUC WBC STUDYon 03-11-2022 NUC WBC STUDY [...] infection about the right knee arthroplasty. Normal [facility] [place] Whole body Views W In-111 tagged WBC Thea 03-10-2022 Radiology Study observation (narrative) [facility] CNOVSPon 02-28-2022 CNOVSP Visit (SP) Office ([place]) SD REHMAN ([id number]) 1950 F Date Time Provider Department 02/28/22 3:00 PM DENNIS LOMAS During your visit today, we recorded the following information about you: Temperature Pulse Respiration Blood pressure 97.1 degrees 85/minute 16/minute 147/72 Weight Height 100.7 kg 1.575 m Dennis Lomas MD 03/11/2022 8:25 AM Signed NAME: Sd Rehman CLINIC NO.: [id number] DATE OF SERVICE: February 28, 2022 (Feliciano) [...] 1 T (more content not included)... Normal [facility] LYNDA DOP LEG BILon 022 [...] by: TERESA AZUL Date: 2022-02-27 14:25 Normal [facility] LARGE JOINT/BURSA INJECTION AND/OR ASPIRATION: R knee 02-20-2022 Radiology Study observation (narrative) [facility] LARGE JOINT/BURSA INJECTION AND/OR ASPIRATION: R knee 02-19-2022 Navin Clark MD 02/20/2022 2:33 PM [...] complications The patient was prepped with Chloraprep. [facility] PTH INTACTon 02-18-2022 PTH, Intact 55 pg/mL Normal 15-65 [facility] Comment on above: Performed By: #### M G, RENAL, URIC #### [facility] [address] [address] [address] Demetra Costa HEMOGRAM AND PLATELon 2021 Hematocrit (Bld) [Volume fraction] 41.8 % Normal 36.0-48.0 [facility] Comment on above: Performed By: #### H H #### [facility] [address] [place] [address] Dr. Demetra Costa Hemoglobin (Bld) [Mass/Vol] 14.0 g/dL Normal 12.0-16.0 [facility] Comment on above: Performed By: #### H H #### [facility] [address] [place] [address] Dr. Demetra Costa MCH (RBC) [Entitic mass] 33.7 pg Normal 26.7-34.0 [facility] Comment on above: Performed By: #### H H #### [facility] [address] [place] [address] Dr. Demetra Costa MCHC (RBC) [Mass/Vol] 33.5 g/dL Normal 29.9-35.2 [facility] Comment on above: Performed By: #### H H #### [facility] [address] [place] [address] Dr. Demetra Costa MCV (RBC) [Entitic vol] 100.5 fL Critically high 81.0-99.0 [facility] Comment on above: Performed By: #### H H #### [facility] [address] [place] [address] Dr. Demetra Costa PLT 397 103/ul Normal 150-450 [facility] Comment on above: Performed By: #### H H #### [facility] [address] [place] [address] Dr. Demetra Costa RBC 4.16 106/ul Critically low 4.20-5.40 [facility] Comment on above: Performed By: #### H H #### [facility] [address] [place] [address] Dr. Demetra Costa WBC 13.6 103/ul Critically high 4.0-11.[address] [facility] Comment on above: Performed By: #### H H #### [facility] [address] [place] [address] Dr. Demetra Costa MAGNESIUMon 02-17-2022 Magnesium [Mass/Vol] 2.0 mg/dL Normal 1.8-2.4 [facility] Comment on above: Performed By: #### M G, RENAL, URIC #### [facility] [address] [place] [address] Dr. Demetra Costa RENAL FUNCTION PANELon 02-17 Albumin [Mass/Vol] 3.4 g/dL Normal 3.4-5.0 [facility] Comment on above: Performed By: #### M G, RENAL, URIC #### [facility] [address] [place] [address] Dr. Demetra Costa Calcium [Mass/Vol] 10.1 mg/dL Normal 8.5-10.1 [facility] Comment on above: Performed By: #### M G, RENAL, URIC #### [facility] [address] [place] [address] Dr. Demetra Costa Chloride [Moles/Vol] 99 mmol/L Normal 98-107 [facility] Comment on above: Performed By: #### M G, RENAL, URIC #### [facility] [address] [place] [address] Dr. Demetra Costa CO2 [Moles/Vol] 24.9 mmol/L Normal 21.0-32.0 [facility] Comment on above: Performed By: #### M G, RENAL, URIC #### [facility] [address] [place] [address] Dr. Demetra Costa Creatinine [Mass/Vol] 1.79 mg/dL Critically high 0.55-1.02 [facility] Comment on above: Performed By: #### M G, RENAL, URIC #### [facility] [address] [place] [address] Dr. Demetra Costa EGFR-AF COLOMBIAN 34 mL/min/1.73m2 Critically low >=60 [facility] Comment on above: Performed By: #### M G, RENAL, URIC #### [facility] [address] [place] [address] Dr. Demetra Costa EGFR-NON AF COLOMBIAN 28 mL/min/1.73m2 Critically low >=60 [facility] Comment on above: Performed By: #### M G, RENAL, URIC #### [facility] [address] [place] [address] Dr. Demetra Costa Glucose [Mass/Vol] 127 mg/dL Critically high 74-106 [facility] Comment on above: Performed By: #### M G, RENAL, URIC #### [facility] [address] [address] [address] Demetra Costa Phosphate [Mass/Vol] 3.6 mg/dL Normal 2.6-4.7 [facility] Comment on above: Performed By: #### M G, RENAL, URIC #### [facility] [address] [address] [address] Demetra Costa Potassium [Moles/Vol] 4.1 mmol/L Normal 3.5-5.1 [facility] Comment on above: Performed By: #### M G, RENAL, URIC #### [facility] [address] [place] [address] Dr. Demetra Costa Sodium [Moles/Vol] 137 mmol/L Normal 136-145 [facility] Comment on above: Performed By: #### M G, RENAL, URIC #### [facility] [address] [place] [address] Dr. Demetra Costa Urea nitrogen [Mass/Vol] 41.0 mg/dL Critically high 7.0-18.0 [facility] Comment on above: Performed By: #### M G, RENAL, URIC #### [facility] [address] [place] [address] Dr. Demetra Costa URIC ACID SERUMon 02-17-2022 Urate [Mass/Vol] 7.9 mg/dL Critically high 2.6-6.0 [facility] Comment on above: Performed By: #### M G, RENAL, URIC #### [facility] [address] [place] [address] Dr. Demetra Costa VITAMIN D 25 OHon 02-17-2022 VIT D 25-OH 33.4 ng/mL Normal [facility] Comment on above: Performed By: #### M G, RENAL, URIC #### [facility] [address] [place] [address] Dr. Demetra Costa VIT D RANGES SEE BELOW Normal [facility] Comment on above: Result Comment: <20 ng/mL Vit D deficient 20 - <30 ng/mL Vit D insufficient 30 - 100 ng/mL Vit D sufficient >100 ng/mL Potential Toxicity Performed By: #### M G, RENAL, URIC #### [facility] [address] [place] [address] Dr. Demetra Costa C REACTIVE PROTEINon 022 CRP [Mass/Vol] 12.3 mg/L High 0 - 10.0 MG/L [employer] [facility] System Interpretation and review of laboratory results Abnormal [employer] System [employer] System SEDIMENTATION RATE, AUTOMATE Don 01-02-2022 ESR (Bld) [Velocity] 44 mm/h High [employer] System Interpretation and review of laboratory results Abnormal [employer] System Coding Summaryon 12-27-2021 Coding Summary [employer] 64 TavhmvywCPm2kSn+PGhlYW Q+YD9AWXFbX42nyMFskB0I I3eLFE3OJKSPOJJROE5CNB 9dtXV1SCkzQ5TcbtAv ZmcxmQNhZD06AFs6NND5dG laPKljrP5wcUMaL5m3XkSg KU61pR98YYimBVKjAyY0Xb ZpbjsgbWFy M5asHyCspEGxUvo+PHRhYm xlIHdpZHRoPScxMDAlJyBz zTafRS6oMf6eFPFcQDAduR xhcHNlOiBj u7nmQTQeOUmqAK3wwRvoC9 PgqCV7WVFmm9e2Cv56aUU+ TKQxEVD6wPjtIQuml745Bx Diw3bzTZT0 nNBnSAcwLID4F67qr0U8OY FcJGVqAUM4cSO2jL6waMrk npbbP6NftCViBjH2PUX1cJ QjdU3eaRgn noonhI2yVxg+R26FFY4GWH JTUL3PSqm3P4YlVwuotIH+ KK25MSArLS73hGKsvOLtl0 ajzFk0RcGl CCSiGFJ8wUamZBrxi6WgOS OtD57daMXrj9S2PZAibIcv zKZjBdZfqJN4sQ9uCGozsu kzd3tvnodd Gdwra7ozdj65nS10I06xPV cqMPWhXSX8DUUnXCBvfKlb uw9hcT5gGr7+GArbd4mty1 ucyPm3MqJp FHTuyoNthUxeBAL9y5WiJw 11V9PopEacm5KzTxc7ed54 vLHtb9S8qTT4JRmtXAOlpT 6dXZmoPkB9 RSElYvIggT31fDOzKXpaLh 0zzQjfqPgvDK4xNANuthsn ARWopQ5zZEKowESvqMcvYH 4wNTBpbjtm h409SjXpBIF4FKDvpCEmP7 YwgP8nNaNeBMOvTAArV2Kp ySUiSXgwR245JRpmNpU3ZG JnjlGqM2Wm YUFrjPlpUlX5x8U9Mg9Mh0 BhuksuBVX6CDjzZWXyUqV1 YyHcWxK4S4PkGme8IUYslI dhSR8dE2Vz KZPnwfpuotsnmRB2DLOtDH UnjA57bYCcNFaoDp4ls8M3 j771EDDuJQFzpE73Gd6jcL ogMTBwdCBU mN4vjsmfm7sjzcvgUxUwXS KuEMa6UEy7OHFauAefJlOh VOS4NqS9QGL0mJUiqW3wbR vsltnpxB3z Oyc+Q78ehL1fTAU4QXR2yc iaYDFvesCdXF32RM22C0Nj PjwvdGFibGU+PGRpdiBzdH jqFD2qQoDf b8mba6WtPTfnK8UhERQbOI sfTfx3WUPqCWB7tEU5cE0w VPGqKBpuu8W5yRP5Q5Gkfg Becl5eu8cc PHGgTXroL20miVUmh9Q2LI JacYX8THFkjZmaWfCxpS18 Oyc+HNTjbQxtm7EjXbnti2 sbw8jttCt6 RfYuNUHebmBbbRuxYGY1p3 NjVk04B04xIYdlEBXnQFWd VWDmQOIzgYmhba1ziO0oTc 8+PGNvbCB3 nJJ3gN4pRXBnHhL1THdtV3 78FhOlcLBmIjitd3aya0ej rTb1ElDwKMHetxSvbGsaHY V8l5KpSw83 B64vGWtmSRToERPlPEAxYH NuiWhfdw4kbB9qDa4+PC9j x9fxjp72qG90hNK+PHRkIH R3aSzqXXrz SGRfzM6eFPbqOxH7KGGaTf XsjZ22kDMiFGsdJt3faGnz mBcyTY9yAHJxufxgy649Bd Ztm1htOYZs sBNcVZtvCOA4B06be2U4EM MkRHNeOVZ2wYR9bV3njQhw bjogbGVmdDsgdmVydGljYW mhEFmnG110 IHRvcDsnPlBhdGllbnQgTm DxISt7Z4EdJtr2MVQgdTik YN8ckEPeZLmxQm6muZxbpX gbOT1kPIFh cjnua687KhXsw6kbCSDxaU WcYEfuXSM3L26lh4W4JEXj OVOeLAF5yAO5iW7wdBxisw ogbGVmdDsg nyKplQopLGfgXTwfO865MH RvcDsnPkJpcnRoIERhdGU6 SN55KN61bMVyx3L0vVC0W5 BhZGRpbmct ftsmcYK3GHArPTLiyX71Qg 3ouWamKz2dQCJpOFM8XIGr eOFfL1FkhD9kVuEiCDKmYA JrV1JsmJWj TIzuY950BEsqXpL8VUAlvx ZpV2XpNEGvaPqcJoO1c7G4 Us8MM7P9IQ31RD36aHXxh5 C7yIR3G1Zb FPLpuvfynewvkAC9EBZhND ZpfI02Bw5tzAbiUn7vXECp QOK0HPHvtYFdS2EwtM9mXw AjMDAwMDAw J1UxgFSbZAusW748PXoaXz K7VCAtfoRnQ6KpKRQubXri YfK6r7L0Pr9XBVf0DN28FG 69rXYqb8C4 sJX5W6AhVTTcvemnisfnvC O1STUeTBXhnJ98Ar7hyClo Dv4bLUVgCSQ3HNYnaVVtN1 AgcK8vSxPj TDGcCQEoD4YaaJWcKBvjP2 45CYvrDrX5WHLbauQrD6Rk QCFrcKuqQqE4k6A7Vd1ZEO XqOK53WSS0 zJF6UO55DM43S6UsCihekD FibGU+PHRhYmxlIHdpZHRo HRhzVWDrSlRcfVryTU3xUs 9yZGVyLWNv hFsrgJSrSdJgj8wlFGXySL eySG8pnKysQ2NrfUA5DWYd y3p3Xq06G15dX9NvrXM+PG IxfSC3rCH9 iD5fTrAcVbQ4QOgcS719Wu WaaRQqXgogs3lza0wjqIu9 ZtJ8DYRbajBlpOjtXRI4q4 WcQq57F18l IHdpZHRoPSIxNSUiIHZhbG ndki6clE8hKz2+PGNvbCB3 xZM4gN2tTbMvUjZ8EJzuM9 49InRvcCIv Hywpf8iym8fhrCv2NaLxCA JfluRonZjyIVN2h7ByXc77 N9UeiVlsh5UmQys4wh01lS Xng3X4rTS3 V4JxAMVpesqrzFVbgUquMV 3sJSGgsaiiLDIhhW7tCWOc E2y8AhWxGoQ5WEexW6Ilze P1QAKzyJKu DUytFYZ2V29pr3H0AMZzWM JwTWI6zBA1cQ6zeYeulhrg bGVmdDsgdmVydGljYWwtYW xbR399CJLl fQotMTMyfD9fBXEdlJLwuY zlWQ7aOECyrhgnMjfMPNIE RVIsIEJBUkJBUkEgRzwvdG Q+PHRkIHN0 lAotWLguSHOppM2vAEFgS1 v5XwYjFhH1GUblT7NxKYGg oxjdKd38tO8vHfCtGsP3LO jjO2TrnxE4 BDQaxOQcPTstRYA6L61on4 L5TPYqRBUuOVL9kRS5hX6p bGlnbjogbGVmdDsgdmVydG ljYWwtYWxp I848NWKccKjiSoP7ZkW5Hc G1HMT2I9UxYsr2OKAseOhp DP6oyDPrPZwqEh1vcVtrrK hiCW9zQNTu hkjvUVGkkG9jRSQnrRYqpU skLO2mJHGhqplih836SrIw EAF1NKBoaIPeJ9FefA9iJe AjMDAwMDAw A1UppUIaOPtfL387AWojSf P6IMWffyXeV8DoFZJzqBot BgU2u2A1Ko01MTCFWRQxtq wvdGQ+PHRk IVU4bTmxZTpzFVKboL6yXN CoX0v1WzUsLzO6QPhpL3Ff INCaxghpLa61fM7bYzWiJm R2UEioM2Hk whZ9KESnoPRdVMugTTN3W2 8dg2Y6CNOqCEXuMNQ6wZS1 zC9ddDuucdvvdQNffCnisq VydGljYWwt YVzbK331VAFtkUsxIbVXHU FMRTwvdGQ+TUHsMYH7iPat UFsrOAMbuM8qELCxX6n0Sy SyMvI0KFyf T9KuXYAokfkcPb99dH6eXl SpQsA4YIuxB1PgloD9TWAq gZAhHImcHGH6E13zs8M9CH MwMDAwMDA7 iIF2wA1lbJscvzultSNpzJ qhhmSejPmbZAuiPObdZ219 YVMrjWgpSe6HTV78QH58I3 RyPjwvdGFi bGU+PHRhYmxlIHdpZHRoPS xwDOIpTtBazHsxWV2vGh1k ZGVyLWNvbGxhcHNlOiBjb2 xsYXBzZTsg EB7hmCmfK6KxlFD1EYXxw6 t3Of40K54vO9ZuxTI+PGNv bIH3tRF5cA8yPoVmSoQ2KP ygB856JpIm wFVgChcbk8klv9qbzMv1Io MxLBAcerPxsVhtZWW8e6Fn Ed54U33iSJfaLPJoVFUoWH UiIHZhbGln qp9dwY9cXj0+GAYwwEA5cY Y2aK6cIpOfJjD7CThtM690 HtXrzYRdFlrjH64uB6ZdrW A+PHRyPjx0 UMYjpQvrNB0hgGQlMXjtPr 5cMNX8WgPbNaFtCSjgS4Oa CYQgouarriopkWW6KZEfRN YmvU51Dk4v jRdvWn0bQHWgRBG1JQZvkX ZqE7MoeL8zShUaERNjARZq H7HhtUHwTHyxB064MNbmEv S1OXRlxqAj G3IjLGUftChoQyQ6j8M7Ov 1TnNhtpCCfZV5uToEoTNs5 R7AwEdz8UJFuaSyqPN3yzI EnJOmcVo8m pZqksFmgWW1fNSKrmxocj7 22PzRkg8tgDWCbrURaETil ANF3V28zh8Y4ARLrDWTwBV H2gQX2wE5w bGlnbjogbGVmdDsgdmVydG moXPliDLeeL241OQMltVps OqCCJcy9Z9HvNmc2VQRbmR lqIU5zwVQx UZxyQm9ypAfxoUlhNN9fGB Gitbmqy833HnBht7aeVFHy xROrHIayXXY1K80kt0U0DH MwMDAwMDA7 eGX2mO3cgIicqkkhxOUlyJ fmcoNudIfzYDlmUHluA770 EARfeKmkGk3DMoh0C8PgSy m9CWCogPim NB8jyHIqXKhtHy0teYifwN tzHZ1hXGNakkprp202VlXy j5heYILkzBUdYBsdIPM0Q3 2md7Z2NFLn BFZmHTY1gGG9rC2dsMnrrt ogbGVmdDsgdmVydGljYWwt FAhqO343KDPvoKfdXiAfyI VyOjwvdGQ+ PJ29qi42P4TsJddjBkf9BD WnXEI3pVV1nS3yUGYvOZsz c6Y8gRW1U4UubvGejn4jg8 xsYXBzZTog Y29 (more content not included)... [facility] Coding Summary HTMLBase 64 HnmonfwmMZa6qRw+PGhlYW Q+PU0EBOMwX37yxUGcwK8I K0eHWB1OBAYHNGFDDD4YYU 2gqIB5QBjfC7TjiyBo JgukfMJtIZ57XHt1QPK4uZ nmBDdvtV0tlMVhB1p9MtVt NO68rQ56YQojBCHqPjI1Wb ZpbjsgbWFy H3mfBrXgiBVzTtt+PHRhYm xlIHdpZHRoPScxMDAlJyBz eFitOB7vIz8xLHXpFCCunD xhcHNlOiBj e1ulZZMiMWefQN4duMwhK3 ZjtNU8WRJxi0w1Oc33eCU+ YIHeYJJ6dGmzWMgvz037Mr Lsm7utZWM2 nLHjRHluSCQ4G08tp9T7JR LmHYNnLHZ9yDP1fV2gsQkr lekkP1AamFBrAeJ4CKQ4mL XyaU2bqOiq andufI2jNle+J72VTM4MYQ JYVU3JKjp9R9ScQqejyLX+ AE39JQXmMZ20xIEwuTScu0 wfcEq4ZwDx ARLqGEQ0nXosSVgns0NdFB NpK88xoDMdi5E6VZYcsHft pJGwRhGpaVU7zR2lRJcohu lov7ogjboz Zocss2oxfd24bI98M64wLC gdUWBcFSO7IHJhZBNctKqy xg8eyU2rPt2+FIvgw8orq3 ocvWy9LzHi RFMoqbRjzOdrOAH0n4MwSf 92B7XwuMihx4OdPbh3ql60 zOPgf3R7cBB8GPaoAMZonD 8fYWjmZoH9 LPVaRrAmfM43pAUwUWujZh 7qeXgliJmgKX0bADHgpxyd XBRwdC0bDWLzuJIhwTeeLN 4wNTBpbjtm u749BnQcAEJ0NLFjzXUzF1 JthK8nRyQdQYEpZINdG2Td qCYtIYyjP828MRqpFcI7RH RkmjMbA6Sb RTIsaBevYeL0k6Z8Pq3Uj5 BhwhkdEMC9RVonEZPeUqT4 QaWuDtJ3G3XsAlb6SLVsrO sqWD5wZ0Kf MUYgvdwdyusesQO4HQNmZB KveI18rQAlPXawUk7wj2T8 t963UEZmXSUvlL63Ws6scH ogMTBwdCBU bB0wvdtdu9dasocdIgXxZZ GzZHd0LQv6BGVdmTznWfWl TTZ5UlJ5QHG0nTCadJ4kbD abtzlmbG2m Oyc+T59jeZ7gBKQ2ICQ1yx ziZSRlgbTnZV08MM55H7Pk PjwvdGFibGU+PGRpdiBzdH coYP1yZnHw k2hyy9VbHYmeO5MmWIVcJV vmRpf3FEYpQJE5yHE5cM4m QJJiOYreh8E7bFA9O3Bwzn Afjl1ii2nh NDIxXWmlB88etLAla1H5IP WnoCG8MIRqvVpwByWueL64 Oyc+SPGzuVexb6HbWswsh5 djv7fgiXu4 McFoCCEzvsHmuTohYUI7d9 CxNm89V68nIYgqIXOnFNRn BFAeTPUllRfoas3toS8qLg 8+PGNvbCB3 kDR8oD8gZVVdZtE5WDycU9 25GeGfaFBvHttjx8ehl5bq gOj6WyPuMFWlwxGckMrsVL O6w3AmYl78 A25mDUgaZAWzHLUgLNKtYL IziExbdf9wmT2dWh6+PC9j b3vfgf75xX67uGO+PHRkIH L8vHbrBSgm HTNhgD6uASemOyT6OFAnLt GwqT73qLMoTPvrGl1fxEdc jMlhFO0rHNOjmxbls454Ue Gag6qrEMPh tCLiVDepGZZ1K19ud8I2MQ OtXFHqEQM2oRZ8iX8utTzt bjogbGVmdDsgdmVydGljYW vlDZmrW071 IHRvcDsnPlBhdGllbnQgTm YwNFh0O3DtQvu8XUHsuWhs TG0qzRHeOIiaEi2ppScipB ogEV1pLKRk yvlge832TrPoh3ucJYMvqT MuHUzhVKM5C16jc9K1VEQe KBMoGRX3kYU3tK8jwDupdd ogbGVmdDsg goUigAihVPxwFKlwW508HD RvcDsnPkJpcnRoIERhdGU6 IJ41ZB13wJUtl3L0jDL6Z9 BhZGRpbmct rlgweFK8ZDPcEFOseL59Zj 8hiZslLj5dWHJiEHF4WBOi xKNvQ2DpnK1zAwDcCZWiSG HeX4AtwVLz EHspF700ZXlyMqE7XBTlwn GlF6BqUDPdpCsiPtI7y6Q6 Yn0DM9I4KA55YA75hORgc2 D9xFP5Z8Iq WWVcazbalxzyzCP8PAArZL VcdH34Hd8ywLeaHy3jMMRe ENA8JTUnmVOqO1NcbQ8lNu AjMDAwMDAw T4SuqMIyHEtcD692DWerKc E9TTRcgiGiD7ZtOQPcqSld MaL8i7D8Ne4YMJz6GM21RY 02iDUtp8S3 jYW8Z9XgLQGuozgrgrrjhJ R2MYLxJCQdhK03Mq2zrBtq Ky7kOCFgLHT4ZEJstUMjA9 UmaT4vVkFw FXXyNRTuZ9AahZEyKLznX0 97TKfwStD2ZYFgmdXlJ4Ws WFDdgWejNxY4j4Z7Vl5ZGU BwDA25XXT0 oPU4VZ05NR19W9FcGpvwaU FibGU+PHRhYmxlIHdpZHRo QSzqYRUsUiCxxYvmMR8qEp 9yZGVyLWNv hGglgYRrZvUyx9sdXPYpDJ plZO5rtZxgN3XwoQB9GDJd k2q5Gh40O34dW5SglCF+PG XptYH2gYY3 uO7fKyJhYsC2OQdqC208Yt OjkLIwSebpe7asw0ovpIi5 KjW3QNMqofQdgUqoIGG4j3 AiQs53C59r IHdpZHRoPSIxNSUiIHZhbG zwts9yuB9bTc4+PGNvbCB3 jRN4kX3lFaOuCcJ3JPhkD7 49InRvcCIv Sbfpm3gxh5xifRi0VzYcGS YniuEcbFdfSPI2v4GmWe41 D9UlqNzto8LzXlc6ek41nZ Zpz1J3fNK5 J7ZqJLLslswkeMNnaNktAQ 2jLFEhbeetSPMoaH0iYJPr P8v9GcZpEkP2RIshH2Ahbe P7NQLjiNRu LBwhMKK2H93mh8M0SYYeRC TyPAS0mUJ7cK5txLraitkz bGVmdDsgdmVydGljYWwtYW vmP642ZXSs vQazVIUelL0wKEPlrUXzjI clJC7yLSVmsruuPkmSZGVD RVIsIEJBUkJBUkEgRzwvdG Q+PHRkIHN0 yPxjJMahGZVybS4lXGFuO2 q4ZrMfTtZ1RTplE6FzPLLu swchId28eH1sPlTvLwM2ZD pxF0DoudK5 IGSrmJLzXBskLNP5W27vl6 Z9RVUyCUNvFGH4cIS9xC4w bGlnbjogbGVmdDsgdmVydG ljYWwtYWxp P373YBRbrIgoBuR5KeM3Ti X7MCF9B3OgVrp3WTFnjEwp QV3lpXLxXWqeOj5xaAaukC enWN4bWJXg pgfnRSDejW5lTXBtsKZlhX nnCJ2xWRMhasxao105CkOj CPV4GOBgdHAlT9MxlR1yDz AjMDAwMDAw F2BcaARyARccY746XLpaFj D7WNQxxeBbD6DnTBTlgQaw RfH0m1Y5Qs96KUPGXGPswa wvdGQ+PHRk CUQ8nSelYFycZHBxnG2qMQ PmN0s8MeWlNyK4NUrjW9Qj YRDobaqmJz54mA9lZlAaUx J1EYyfE0Aw wzW9PQJlpMQyVBpyTMH1J1 5nf3Q9EFWxZVFdSRD4rLC7 jQ1yfQnbwwhqtEDbsFjayw VydGljYWwt IJagN386RRXxqLrvJyPTKP FMRTwvdGQ+NUWbMXU6sInv MPkjXGRqaL5aIBDjK7q7Vh QdSbL7BPnk A5ToUYFfdungBt81bP2vKh VnRjH8DHreB3GrclJ3VEWd gFXqZUfpMTZ2Q58ia9Z7JJ MwMDAwMDA7 fRZ0aW5onRfcngonlUMjgP nqulHwqDvzYAhtEAykC719 VLCdeYajRwHaGXLlPW0oxM wvdGQ+PC90 ny50F8YxIdzoNfh3TINzIY Z8kOE5tU4dSOVuYFmkb5U9 oAN0L1WaxbKbpl0vr4omEW IeURzaJ41c zFClk7D6ORVnwIQ1JNKowY vuAgUftC94Lnd+PGNvbGdy k2LvYxzoc3pqa3dmbCu2Jc MwJSIgdmFs nKepVDT5e9IvQl43C32mHO dpZHRoPSIzMCUiIHZhbGln ap2oyC9jDy2+FPYtyVZ8uJ N3kX0aSkYs YkO1MHzeS462ObMczCEdIr ooc3yak1bvrNt6CnEbUMAv tpFwcByeVCJ1n8BoXz23I4 KcfIjvl4Hd Kuw5pf56oSKwn8Q5yFE0A5 IkOKSdquncxNHkiJdfSH5m YBZttctpGHPpnI9dWXHuT3 y8GsQlGvT8 TQsvP2CvbaM5GPJhtNWpAX DtpUDHaU1xrmddy1ctyiyd SuMtSRJxEYq3LCw9DHZtqO duOiBsZWZ0 RdM0HLR2uTCpiL2cpBxccs ostI4yGsz+UPr2z3xucIWb GJ0lqAB0KW24PI38cVTvn9 Q5bWS2C0Nw ZQImphjczzdqnDD2ZVVbFL IlsL72Xu7ggPgeYc2kZJPn FPN8OLCbtVUtL7BvnM1qAl AjMDAwMDAw G9BfuXZtKPzvC155ACzhMn G2PRHtjjPuD3MkIVZqsCvh TaC1w3M5Mj3UVY60CN19YK 48uQTtz9K1 lDG2J6SlDNCoxzkolkmhfD X3QAWgCHDpnN62Hf7ppZqq Aw1vMGFxHUD7QKCcqDMwB9 LhiU9bDwVn BEDpZNDcX5ZvgKQwTZvcG1 84IJulEiZ2VYMupkEeB7Mx RAIwbGftZmV7t6T5Aw5XZf 27HJ51XF57 aYEkb3N6nXP3P8CyXEVkhv iefufuqPI2EDUdLACkiP62 Ja0agHziKq4cBSJwXAY0LY UmrEFvN9Oz bS0mHdTpDWEmDULeI1GjxS KeXOygG738SIlkZtU6GFPw vxItA2BtTXXxbNenUsX2t6 Y4Kf0BIAnk pxt3K7EqRgekhJL+PC90YW TgKL96uSPxtZZnl1dygVg2 SmEkFMAfVSD5aKrfOCpui1 ZuHOZdO42d bGF (more content not included)... Normal [facility] CT Head or Brain w/o Contras ton [...] MD 12/14/21 6:37 pm Technologist: MARCY Berg [facility] ED Clinical Summaryon 2021 ED Clinical Summary [facility] - Emergency Department [address] [place] [address] ED Clinical Summary PERSON INFORMATION Name: SD REHMAN Age: 71 Years Sex: FEMALE : 1950 MRN: Acct#: Visit Reason: Closed head injury without LOC; FALL-HEAD/RT WRIST INJURY Arrival: 12/14/2021 17:41:04 Discharge: 12/14/2021 18:56:00 LOS: 000 01:15 Check In: 12/14/2021 17:41:04 Checkout:12/14/2021 18:56:00 Address: [address] [place] [address] PCP: PATRICK ODOM PROVIDER INFORMATION Provider Role Assigned Unassigned Jignesh He PA-C ED PA 12/14/2021 17:44:02 Starr BUCHANAN, [place] ED Nurse 12/14/2021 17:48:00 VITALS INFORMATION [...] 12/14/2021 [employer] (more content not included)... [facility] ED Note - Physicianon 2021 ED [...] Regular r (more content not included)... Normal [facility] ED Note-Nursingon 12-14-2021 ED Note-Nursing PA(KIM) washed skin tear with saline and betasept, see PA note. Nonstick dressing and gauze wrapped around site. Normal [facility] ED Note-Nursing Patient arrives afte r falling from the first step on her camper. Patient did hit her head, no LOC. Hematoma. Patient has c/o right knee pain and right wrist pain. Small skin tear on right wrist. Patient does take blood thinners. Alert and oriented. Event occurred around 1600. Normal [facility] ED Patient Summaryon 022 ED Patient Summary [facility] - Emergency Department [address] [place] [id number] PATIENT DISCHARGE INSTRUCTIONS Patient Information Name: SD REHMAN Age: 71 Years Date of : 1950 Reason For Visit: Closed head injury without LOC; FALL-HEAD/RT WRIST INJURY Arrival Time: 12/14/2021 17:41:04 Primary Care Physician: PATRICK ODOM Attending Physician: Elijah Terrazas MD Comment: Visit Diagnosis: Diagnoses This Visit Closed head injury without LOC ([id number]) Closed head injury without loss of consciousness (S09.90XA) Contusion of right knee (S80.01) Elevated blood pressure reading (R03.0) Fall (on) (from) other stairs and steps (W10.8) Skin tear of right upper extremity (S41.111A) The Pharmacy at [facility] is open Thursday through Thursday from [...] alcohol and/or drug addiction problems; contact the [facility] 13/10 Crisis Hotline -Text 0NZJP xq 489322. If you received any narcotics, sedation, or [...] any legal documents With: Address: When: [place] [address] [facility] (1) Within 3 to 5 days Comments: [...] and treatment you received today in the [facility] Emergency Department were for an urgent problem and are not intended as complete care. It is important for you to follow up with a doctor, nurse practitioner, or physician?s photography assistant for ongoing care. If your symptoms [...] so we can reach you if necessary. [facility] Emergency Department has provided you with a complete list of medications post discharge. Please inform your publicity writer/provider of your visit and for further instruction [...] Therapy: Room air (more content not included)... [facility] XR Knee Complete Righton XR Knee [...] MD 12/14/21 6:23 pm Technologist: Kristen RODAS [facility] Covid-19 PCR (CVDTB)on 11-21 SARS-CoV-2 (COVID-19) RNA GABRIELA+probe Ql (Unsp spec) Not detected Normal NOT DETECTED [facility] Comment on above: Result Comment: This test is not yet approved or cleared by the [place] FDA. When there are no FDA-approved or cleared tests available, and other criteria are met, FDA can make tests available under an emergency access mechanism called an Emergency Use Authorization (EUA). The EUA for this test is supported by the [place] of Health and Human Service's (HHS's) declaration [...] By: #### M G, RENAL, URIC #### [facility] [address] [place] [address] Dr. Demetra Costa BNPon 11-21-2021 Natriuretic peptide B (Bld) [Mass/Vol] 234.0 pg/mL Normal <=900.0 [facility] Comment on above: Performed By: #### U PARESH, CMP #### [facility] [address] [place] [address] Dr. Demetra Costa CBC AUTO DIFFon 11-21-2021 BASO # 0.1 103/ul Normal 0.0-0.1 [facility] Comment on above: Performed By: #### C BC #### [facility] [address] [place] [address] Dr. Demetra Costa Basophils/100 WBC (Bld) 0.4 % Normal 0.2-2.0 [facility] Comment on above: Performed By: #### C BC #### [facility] [address] [place] [address] Dr. Demetra Costa EO # 0.2 103/ul Normal 0.0-0.7 [facility] Comment on above: Performed By: #### C BC #### [facility] [address] [place] [address] Dr. Demetra Costa Eosinophils/100 WBC (Bld) 1.3 % Normal 0.9-7.0 [facility] Comment on above: Performed By: #### C BC #### [facility] [address] [place] [address] Dr. Demetra Costa Erythrocyte distribution width (RBC) [Ratio] 16.3 % Critically high 11.0-15.0 [facility] Comment on above: Performed By: #### C BC #### [facility] [address] [place] [address] Dr. Demetra Costa Hematocrit (Bld) [Volume fraction] 35.9 % Critically low 36.0-48.0 [facility] Comment on above: Performed By: #### C BC #### [facility] [address] [place] [address] Dr. Demetra Costa Hemoglobin (Bld) [Mass/Vol] 12.1 g/dL Normal 12.0-16.0 [facility] Comment on above: Performed By: #### C BC #### [facility] [address] [place] [address] Dr. Demetra Costa IG # 0.08 10e3/ul Critically high 0.00-0.03 [facility] Comment on above: Performed By: #### C BC #### [facility] [address] [place] [address] Dr. Demetra Costa IG % 0.6 % Critically high 0.0-0.5 [facility] Comment on above: Performed By: #### C BC #### [facility] [address] [place] [address] Dr. Demetra Costa LYMPH # 2.0 103/ul Normal 1.2-3.8 [facility] Comment on above: Performed By: #### C BC #### [facility] [address] [place] [address] Dr. Demetra Costa Lymphocytes/100 WBC (Bld) 14.8 % Critically low 20.5-60.0 [facility] Comment on above: Performed By: #### C BC #### [facility] [address] [place] [address] Dr. Demetra Costa MANUAL DIFF REQ NO Normal [facility] Comment on above: Performed By: #### C BC #### [facility] [address] [place] [address] Dr. Demetra Costa MCH (RBC) [Entitic mass] 34.5 pg Critically high 26.7-34.0 [facility] Comment on above: Performed By: #### C BC #### [facility] [address] [place] [address] Dr. Demetra Costa MCHC (RBC) [Mass/Vol] 33.7 g/dL Normal 29.9-35.2 [facility] Comment on above: Performed By: #### C BC #### [facility] [address] [address] [address] Demetra Costa MCV (RBC) [Entitic vol] 102.3 fL Critically high 81.0-99.0 [facility] Comment on above: Performed By: #### C BC #### [facility] [address] [address] [address] Demetra Costa MONO # 1.1 103/ul Critically high 0.3-0.8 [facility] Comment on above: Performed By: #### C BC #### [facility] [address] [place] [address] Dr. Demetra Costa Monocytes/100 WBC (Bld) 8.1 % Normal 1.7-12.0 [facility] Comment on above: Performed By: #### C BC #### [facility] [address] [place] [address] Dr. Demetra Costa NEUT # 10.0 103/ul Critically high 1.4-6.5 [facility] Comment on above: Performed By: #### C BC #### [facility] [address] [place] [address] Dr. Demetra Costa Neutrophils/100 WBC (Bld) 74.8 % Normal 43.0-75.0 [facility] Comment on above: Performed By: #### C BC #### [facility] [address] [address] [address] Demetra Costa Platelet mean volume (Bld) [Entitic vol] 9.8 fL Normal 9.5-13.5 [facility] Comment on above: Performed By: #### C BC #### [facility] [address] [place] [address] Dr. Demetra Costa PLT 254 103/ul Normal 150-450 [facility] Comment on above: Performed By: #### C BC #### [facility] [address] [place] [address] Dr. Demetra Costa RBC 3.51 106/ul Critically low 4.20-5.40 [facility] Comment on above: Performed By: #### C BC #### [facility] [address] [place] [address] Dr. Demetra Costa WBC 13.4 103/ul Critically high 4.0-11.0 [facility] Comment on above: Performed By: #### C BC #### [facility] [address] [address] [address] Demetra Costa PROF CHEM 8 (BAS METB)on Anion gap [Moles/Vol] 12.8 mmol/L Normal [facility] Comment on above: Performed By: #### U PARESH, CMP #### [facility] [address] [place] [address] Dr. Demetra Costa Calcium [Mass/Vol] 8.8 mg/dL Normal 8.5-10.1 [facility] Comment on above: Performed By: #### U PARESH, CMP #### [facility] [address] [place] [address] Dr. Demetra Costa Chloride [Moles/Vol] 104 mmol/L Normal 98-107 [facility] Comment on above: Performed By: #### U PARESH, CMP #### [facility] [address] [place] [address] Dr. Demetra Costa CO2 [Moles/Vol] 25.6 mmol/L Normal 21.0-32.[address] [facility] Comment on above: Performed By: #### U PARESH, CMP #### [facility] [address] [place] [address] Dr. Demetra Costa Creatinine [Mass/Vol] 1.51 mg/dL Critically high 0.55-1.02 [facility] Comment on above: Performed By: #### U PARESH, CMP #### [facility] [address] [place] [address] Dr. Demetra Costa EGFR-AF COLOMBIAN 41 mL/min/1.73m2 Critically low >=60 [facility] Comment on above: Performed By: #### U PARESH, CMP #### [facility] [address] [place] [address] Dr. Demetra Costa EGFR-NON AF COLOMBIAN 34 mL/min/1.73m2 Critically low >=60 [facility] Comment on above: Performed By: #### U PARESH, CMP #### [facility] [address] [address] [address] Demetra Costa Glucose [Mass/Vol] 103 mg/dL Normal 74-106 [facility] Comment on above: Performed By: #### U APRESH, CMP #### [facility] [address] [address] [address] Demetra Costa Potassium [Moles/Vol] 5.4 mmol/L Critically high 3.5-5.1 [facility] Comment on above: Performed By: #### U PARESH, CMP #### [facility] [address] [address] [address] Demetra Costa Sodium [Moles/Vol] 137 mmol/L Normal 136-145 [facility] Comment on above: Performed By: #### U PARESH, CMP #### [facility] [address] [address] [address] Demetra Costa Urea nitrogen [Mass/Vol] 35.0 mg/dL Critically high 7.0-18.0 [facility] Comment on above: Performed By: #### U PARESH, CMP #### [facility] [address] [place] [address] Dr. Demetra Costa Urea nitrogen/Creatinine [Mass ratio] 23.2 mg/mg Normal [facility] Comment on above: Performed By: #### U PARESH, CMP #### [facility] [address] [place] [address] Dr. Demetra Costa US LYNDA DOP LEG [...] by: ASHLEY WEAVER Date: 2021-11-21 21:28 Normal [facility] XR CHEST 2 Von 11-21-2021 XR CHEST [...] by: NGHIA ANGUIANO Date: 2021-11-21 19:[address] [facility] [address] LUNG CANCER SCREENINGon 0 11-05-2021 CT [...] TERESA AZUL Date: 2021-11-05 06:49 Normal [facility] IMMUNOFIX ELEC, PROTEIN ELEC URINEon 10-01-2021 Albumin, U 72.1 % Normal [facility] Comment on above: Performed By: #### U PARESH, CMP #### [facility] [address] [place] [address] Dr. Demetra Costa Nsuuu-4-Mjulmull, U 1.4 % Normal [facility] Comment on above: Performed By: #### U PARESH, CMP #### [facility] [address] [address] [address] Demetra Costa Igqnx-3-Plofgyhq, U 6.1 % Normal [facility] Comment on above: Performed By: #### U PARESH, CMP #### [facility] [address] [address] [address] Demetra Costa Beta Globulin, U 14.6 % Normal [facility] Comment on above: Performed By: #### U PARESH, CMP #### [facility] [address] [address] [address] Demetra Costa Gamma Globulin, U 5.8 % Normal [facility] Comment on above: Performed By: #### U PARESH, CMP #### [facility] [address] [address] [address] Demetra Costa Immunofixation Result, Urine Comment Normal [facility] Comment on above: Result Comment: No m onoclonality detected. Performed By: #### U PARESH, CMP #### [facility] [address] [address] [address] Yilan Costa M-Evans, % Not Observed Normal Not Observed [facility] Comment on above: Performed By: #### U PARESH, CMP #### [facility] [address] [place] [address] Dr. Demetra Costa Note: Comment Normal [facility] Comment on above: Result Comment: Prot ein electrophoresis scan will follow via computer, mail, or screedman delivery. Performed By: #### U PARESH, CMP #### [facility] [address] [place] [address] Dr. Demetra Costa PDF . Normal [facility] Comment on above: Performed By: #### U PARESH, CMP #### [facility] [address] [place] [address] Dr. Demetra Costa Protein (U) [Mass/Vol] 79.0 mg/dL Normal Not Estab. [facility] Comment on above: Performed By: #### U PARESH, CMP #### [facility] [address] [place] [address] Dr. Demetra Costa IMMUNOFIXATION(NISHA),PROTEIN ELEC(PE),[facility] 09-28-2021 Albumin [Mass/Vol] 3.5 g/dL Normal 2.9-4.4 [facility] Comment on above: Performed By: #### I FEPEFL #### [facility] [address] [place] [address] Dr. Demetra Costa Albumin/Globulin [Mass ratio] 1.3 {ratio} Normal 0.7-1.7 [facility] Comment on above: Performed By: #### I FEPEFL #### [facility] [address] [place] [address] Dr. Demetra Costa Gmssa-8-Xgbrbfyn 0.3 g/dL Normal 0.0-0.4 [facility] Comment on above: Performed By: #### I FEPEFL #### [facility] [address] [place] [address] Dr. Demetra Costa Tydwf-0-Szbitusv 1.1 g/dL Critically high 0.4-1.0 [facility] Comment on above: Performed By: #### I FEPEFL #### [facility] [address] [address] [address] Demetra Costa Beta Globulin 1.1 g/dL Normal 0.7-1.3 [facility] Comment on above: Performed By: #### I FEPEFL #### [facility] [address] [address] [address] Demetra Costa Free [place] Lt Chains,S 19.2 mg/L Normal 3.3-19.4 [facility] Comment on above: Performed By: #### I FEPEFL #### [facility] [address] [address] [address] Demetra Costa Free Lambda Lt Chains,S 20.6 mg/L Normal 5.7-26.3 [facility] Comment on above: Performed By: #### I FEPEFL #### [facility] [address] [place] [address] Dr. Demetra Costa Gamma Globulin 0.4 g/dL Normal 0.4-1.8 [facility] Comment on above: Performed By: #### I FEPEFL #### [facility] [address] [place] [address] Dr. Demetra Costa Globulin (S) [Mass/Vol] 2.9 g/dL Normal 2.2-3.9 [facility] Comment on above: Performed By: #### I FEPEFL #### [facility] [address] [place] [address] Dr. Demetra Costa Immunofixation Result, Serum Comment Normal [facility] Comment on above: Result Comment: No m onoclonality detected. Performed By: #### I FEPEFL #### [facility] [address] [place] [address] Dr. Demetra Costa Immunoglobulin A, Qn, Serum 171 mg/dL Normal 87-352 [facility] Comment on above: Performed By: #### I FEPEFL #### [facility] [address] [address] [address] Demetra Costa Immunoglobulin G, Qn, Serum 470 mg/dL Critically low 586-1602 [facility] Comment on above: Performed By: #### I FEPEFL #### [facility] [address] [place] [address] Dr. Demetra Costa Immunoglobulin M, Qn, Serum 29 mg/dL Normal 26-217 [facility] Comment on above: Performed By: #### I FEPEFL #### [facility] [address] [place] [address] Dr. Demetra Costa [place]/Lambda Ratio, S 0.93 Normal 0.26-1.65 [facility] Comment on above: Performed By: #### I FEPEFL #### [facility] [address] [place] [address] Dr. Demetra Costa M-Evans Not Observed Normal Not Observed [facility] Comment on above: Performed By: #### I FEPEFL #### [facility] [address] [place] [address] Dr. Demetra Costa PDF . Normal [facility] Comment on above: Performed By: #### I FEPEFL #### [facility] [address] [place] [address] Dr. Demetra Costa Please note: Comment Normal [facility] Comment on above: Result Comment: Prot ein electrophoresis scan will follow via computer, mail, or screedman delivery. Performed By: #### I FEPEFL #### [facility] [address] [place] [address] Dr. Demetra Costa Protein [Mass/Vol] 6.4 g/dL Normal 6.0-8.5 [facility] Comment on above: Performed By: #### I FEPEFL #### [facility] [address] [place] [address] Dr. Demetra Costa CBC AUTO DIFFon 09-19-2021 BASO # 0.1 103/ul Normal 0.0-0.1 [facility] Comment on above: Performed By: #### M G, RENAL, URIC #### [facility] [address] [place] [address] Dr. Demetra Costa Basophils/100 WBC (Bld) 0.6 % Normal 0.2-2.0 [facility] Comment on above: Performed By: #### M G, RENAL, URIC #### [facility] [address] [place] [address] Dr. Demetra Costa EO # 0.1 103/ul Normal 0.0-0.7 [facility] Comment on above: Performed By: #### M G, RENAL, URIC #### [facility] [address] [place] [address] Dr. Demetra Costa Eosinophils/100 WBC (Bld) 1.2 % Normal 0.9-7.0 [facility] Comment on above: Performed By: #### M G, RENAL, URIC #### [facility] [address] [place] [address] Dr. Demetra Costa Erythrocyte distribution width (RBC) [Ratio] 15.0 % Normal 11.0-15.0 [facility] Comment on above: Performed By: #### M G, RENAL, URIC #### [facility] [address] [place] [address] Dr. Demetra Costa Hematocrit (Bld) [Volume fraction] 40.6 % Normal 36.0-48.0 [facility] Comment on above: Performed By: #### M G, RENAL, URIC #### [facility] [address] [place] [address] Dr. Demetra Costa Hemoglobin (Bld) [Mass/Vol] 13.4 g/dL Normal 12.0-16.0 [facility] Comment on above: Performed By: #### M G, RENAL, URIC #### [facility] [address] [place] [address] Dr. Demetra Costa IG # 0.04 10e3/ul Critically high 0.00-0.03 [facility] Comment on above: Performed By: #### M G, RENAL, URIC #### [facility] [address] [place] [address] Dr. Demetra Costa IG % 0.4 % Normal 0.0-0.5 [facility] Comment on above: Performed By: #### M G, RENAL, URIC #### [facility] [address] [place] [address] Dr. Demetra Costa LYMPH # 2.3 103/ul Normal 1.2-3.8 [facility] Comment on above: Performed By: #### M G, RENAL, URIC #### [facility] [address] [place] [address] Dr. Demetra Costa Lymphocytes/100 WBC (Bld) 22.8 % Normal 20.5-60.0 [facility] Comment on above: Performed By: #### M G, RENAL, URIC #### [facility] [address] [place] [address] Dr. Demetra Costa MANUAL DIFF REQ NO Normal [facility] Comment on above: Performed By: #### M G, RENAL, URIC #### [facility] [address] [place] [address] Dr. Demetra Costa MCH (RBC) [Entitic mass] 33.3 pg Normal 26.7-34.0 [facility] Comment on above: Performed By: #### M G, RENAL, URIC #### [facility] [address] [place] [address] Dr. Demetra Costa MCHC (RBC) [Mass/Vol] 33.0 g/dL Normal 29.9-35.2 [facility] Comment on above: Performed By: #### M G, RENAL, URIC #### [facility] [address] [place] [address] Dr. Demetra Costa MCV (RBC) [Entitic vol] 101.0 fL Critically high 81.0-99.0 [facility] Comment on above: Performed By: #### M G, RENAL, URIC #### [facility] [address] [place] [address] Dr. Demetra Costa MONO # 0.7 103/ul Normal 0.3-0.8 [facility] Comment on above: Performed By: #### M G, RENAL, URIC #### [facility] [address] [place] [address] Dr. Demetra Costa Monocytes/100 WBC (Bld) 7.1 % Normal 1.7-12.0 [facility] Comment on above: Performed By: #### M G, RENAL, URIC #### [facility] [address] [address] [address] Demetra Costa NEUT # 7.0 103/ul Critically high 1.4-6.5 [facility] Comment on above: Performed By: #### M G, RENAL, URIC #### [facility] [address] [address] [address] Demetra Costa Neutrophils/100 WBC (Bld) 67.9 % Normal 43.0-75.0 [facility] Comment on above: Performed By: #### M G, RENAL, URIC #### [facility] [address] [address] [address] Demetra Costa Platelet mean volume (Bld) [Entitic vol] 9.4 fL Critically low 9.5-13.5 [facility] Comment on above: Performed By: #### M G, RENAL, URIC #### [facility] [address] [place] [address] Dr. Demetra Costa PLT 268 103/ul Normal 150-450 [facility] Comment on above: Performed By: #### M G, RENAL, URIC #### [facility] [address] [address] [address] Demetra Costa RBC 4.02 106/ul Critically low 4.20-5.40 [facility] Comment on above: Performed By: #### M G, RENAL, URIC #### [facility] [address] [place] [address] Dr. Demetra Costa WBC 10.3 103/ul Normal 4.0-11.0 [facility] Comment on above: Performed By: #### M G, RENAL, URIC #### [facility] [address] [place] [address] Dr. Demetra Costa GLYCOHEMOGLOBIN A1Con 2021 ADA RECOMMENDATION SEE BELOW Normal [facility] Comment on above: Result Comment: ADA RECOMMENDED LIMIT 4.0 - 6.0 ADA THERAPEUTIC TARGET < 7.0 ACTION SUGGESTED > 7.0 Performed By: #### A 1C #### [facility] [address] [place] [address] Dr. Demetra Costa Glucose [Mass/Vol] 123 mg/dL Normal [facility] Comment on above: Performed By: #### A 1C #### [facility] [address] [place] [address] Dr. Demetra Costa HbA1c (Bld) [Mass fraction] 5.9 % Normal 4.5-6.2 [facility] Comment on above: Performed By: #### A 1C #### [facility] [address] [place] [address] Dr. Demetra Costa PROF 14(COMP METB)on 022 Albumin [Mass/Vol] 3.2 g/dL Critically low 3.4-5.0 [facility] Comment on above: Performed By: #### U PARESH, CMP #### [facility] [address] [place] [address] Dr. Demetra Costa Albumin/Globulin [Mass ratio] 0.9 {ratio} Normal [facility] Comment on above: Performed By: #### U PARESH, CMP #### [facility] [address] [place] [address] Dr. Demetra Costa ALP [Catalytic activity/Vol] 88 U/L Normal 46-116 [facility] Comment on above: Performed By: #### U PARESH, CMP #### [facility] [address] [place] [address] Dr. Demetra Costa ALT [Catalytic activity/Vol] 25 U/L Normal 14-59 [facility] Comment on above: Performed By: #### U PARESH, CMP #### [facility] [address] [place] [address] Dr. Demetra Costa Anion gap [Moles/Vol] 15.4 mmol/L Normal [facility] Comment on above: Performed By: #### U PARESH, CMP #### [facility] [address] [place] [address] Dr. Demetra Costa AST [Catalytic activity/Vol] 11 U/L Critically low 15-37 [facility] Comment on above: Performed By: #### U PARESH, CMP #### [facility] [address] [place] [address] Dr. Demetra Costa Bilirubin [Mass/Vol] 0.4 mg/dL Normal 0.2-1.0 [facility] Comment on above: Performed By: #### U PARESH, CMP #### [facility] [address] [address] [address] Demetra Costa Calcium [Mass/Vol] 9.3 mg/dL Normal 8.5-10.1 [facility] Comment on above: Performed By: #### U PARESH, CMP #### [facility] [address] [address] [address] Demetra Costa Chloride [Moles/Vol] 102 mmol/L Normal 98-107 [facility] Comment on above: Performed By: #### U PARESH, CMP #### [facility] [address] [place] [address] Dr. Demetra Costa CO2 [Moles/Vol] 24.6 mmol/L Normal 21.0-32.0 [facility] Comment on above: Performed By: #### U PARESH, CMP #### [facility] [address] [place] [address] Dr. Demetra Costa Creatinine [Mass/Vol] 1.35 mg/dL Critically high 0.55-1.02 [facility] Comment on above: Performed By: #### U PARESH, CMP #### [facility] [address] [place] [address] Dr. Demetra Costa EGFR-AF COLOMBIAN 47 mL/min/1.73m2 Critically low >=60 [facility] Comment on above: Performed By: #### U PARESH, CMP #### [facility] [address] [place] [address] Dr. Demetra Costa EGFR-NON AF COLOMBIAN 39 mL/min/1.73m2 Critically low >=60 [facility] Comment on above: Performed By: #### U PARESH, CMP #### [facility] [address] [place] [address] Dr. Demetra Costa Globulin (S) [Mass/Vol] 3.7 g/dL Normal [facility] Comment on above: Performed By: #### U PARESH, CMP #### [facility] [address] [place] [address] Dr. Demetra Costa Glucose [Mass/Vol] 109 mg/dL Critically high 74-106 [facility] Comment on above: Performed By: #### U PARESH, CMP #### [facility] [address] [address] [address] Demetra Costa Potassium [Moles/Vol] 5.0 mmol/L Normal 3.5-5.1 [facility] Comment on above: Performed By: #### U PARESH, CMP #### [facility] [address] [place] [address] Dr. Demetra Costa Protein [Mass/Vol] 6.9 g/dL Normal 6.4-8.2 [facility] Comment on above: Performed By: #### U PARESH, CMP #### [facility] [address] [place] [address] Dr. Demetra Costa Sodium [Moles/Vol] 137 mmol/L Normal 136-145 [facility] Comment on above: Performed By: #### U PARESH, CMP #### [facility] [address] [place] [address] Dr. Demetra Costa Urea nitrogen [Mass/Vol] 28.0 mg/dL Critically high 7.0-18.0 [facility] Comment on above: Performed By: #### U PARESH, CMP #### [facility] [address] [place] [address] Dr. Demetra Costa Urea nitrogen/Creatinine [Mass ratio] 20.7 mg/mg Normal [facility] Comment on above: Performed By: #### U PARESH, CMP #### [facility] [address] [place] [address] Dr. Demetra Costa UA RANDOM W/MICROSCOPICon BACTERIA TRACE Abnormal NONE SEEN [facility] Comment on above: Performed By: #### M G, RENAL, URIC #### [facility] [address] [place] [address] Dr. Demetra Costa Bilirubin Ql (U) Negative Normal NEGATIVE [facility] Comment on above: Performed By: #### M G, RENAL, URIC #### [facility] [address] [place] [address] Dr. Demetra Costa CAST NONE SEEN Normal NONE SEEN [facility] Comment on above: Performed By: #### M G, RENAL, URIC #### [facility] [address] [address] [address] Demetra Costa Clarity (U) SL CLOUDY Abnormal CLEAR [facility] Comment on above: Performed By: #### M G, RENAL, URIC #### [facility] [address] [address] [address] Demetra Costa Color (U) LT. YELLOW Normal YELLOW [facility] Comment on above: Performed By: #### M G, RENAL, URIC #### [facility] [address] [address] [address] Demetra Costa Crystals LM Nom (Urine sed) NONE SEEN Normal NONE SEEN [facility] Comment on above: Performed By: #### M G, RENAL, URIC #### [facility] [address] [place] [address] Dr. Demetra Costa Epithelial cells LM Ql (Urine sed) FEW Abnormal NONE SEEN /RARE [facility] Comment on above: Performed By: #### M G, RENAL, URIC #### [facility] [address] [address] [address] Demetra Costa Glucose Ql (U) Negative Normal NEGATIVE [facility] Comment on above: Performed By: #### M G, RENAL, URIC #### [facility] [address] [address] [address] Demetra Costa Hemoglobin Ql (U) Negative Normal NEGATIVE [facility] Comment on above: Performed By: #### M G, RENAL, URIC #### [facility] [address] [address] [address] Demetra Costa Ketones Ql (U) Negative Normal NEGATIVE [facility] Comment on above: Performed By: #### M G, RENAL, URIC #### [facility] [address] [address] [address] Demetra Costa LEUKOCYTES Negative Normal NEGATIVE [facility] Comment on above: Performed By: #### M G, RENAL, URIC #### [facility] [address] [address] [address] Demetra Costa MUCOUS NONE SEEN Normal NONE SEEN [facility] Comment on above: Performed By: #### M G, RENAL, URIC #### [facility] [address] [address] [address] Demetra Costa Nitrite Ql (U) Negative Normal NEGATIVE [facility] Comment on above: Performed By: #### M G, RENAL, URIC #### [facility] [address] [place] [address] Dr. Demetra Costa pH (U) 7.0 [pH] Normal 5-9 [facility] Comment on above: Performed By: #### M G, RENAL, URIC #### [facility] [address] [place] [address] Dr. Demetra Costa RBC 0-2 Normal 0-2 [facility] Comment on above: Performed By: #### M G, RENAL, URIC #### [facility] [address] [place] [address] Dr. Demetra Costa SPEC GRAVITY 1.010 Normal 1.005-<=1.025 [facility] Comment on above: Performed By: #### M G, RENAL, URIC #### [facility] [address] [place] [address] Dr. Demetra Costa UA PROTEIN Negative Normal NEGATIVE/ TRACE [facility] Comment on above: Performed By: #### M G, RENAL, URIC #### [facility] [address] [place] [address] Dr. Demetra Costa Urobilinogen Qn (U) 0.2 {Favio'U}/dL Normal 0.2 - 1. 0 [facility] Comment on above: Performed By: #### M G, RENAL, URIC #### [facility] [address] [place] [address] Dr. Demetra Costa WBC NONE SEEN Normal NONE SEEN [facility] Comment on above: Performed By: #### M G, RENAL, URIC #### [facility] [address] [place] [address] Dr. Demetra Costa URIC ACID SERUMon 09-19-2021 Urate [Mass/Vol] 3.4 mg/dL Normal 2.6-6.0 [facility] Comment on above: Performed By: #### U PARESH, CMP #### [facility] [address] [place] [address] Dr. Demetra Costa URINE T PROTEIN CREAT RATIOo n 09-19-2021 Protein (U) [Mass/Vol] 22.8 mg/dL Critically high <=12.0 [facility] Comment on above: Performed By: #### U PARESH, CMP #### [facility] [address] [place] [address] Dr. Demetra Costa UR PROT CREAT RAT 1.18 Normal [facility] Comment on above: Performed By: #### U PARESH, CMP #### [facility] [address] [place] [address] Dr. Demetra Costa URINE CREAT 19.38 mg/dL Critically low 20.00-300.00 [facility] Comment on above: Performed By: #### U PARESH, CMP #### [facility] [address] [place] [address] Dr. Demetra Costa PTH INTACTon 09-17-2021 PTH, Intact 49 pg/mL Normal 15-65 [facility] Comment on above: Performed By: #### M G, RENAL, URIC #### [facility] [address] [place] [address] Dr. Demetra Costa HEMOGRAM AND PLATELon 2021 Hematocrit (Bld) [Volume fraction] 40.3 % Normal 36.0-48.0 [facility] Comment on above: Performed By: #### M G, RENAL, URIC #### [facility] [address] [place] [address] Dr. Demetra Costa Hemoglobin (Bld) [Mass/Vol] 13.2 g/dL Normal 12.0-16.0 [facility] Comment on above: Performed By: #### M G, RENAL, URIC #### [facility] [address] [place] [address] Dr. Demetra Costa MCH (RBC) [Entitic mass] 33.2 pg Normal 26.7-34.0 [facility] Comment on above: Performed By: #### M G, RENAL, URIC #### [facility] [address] [place] [address] Dr. Demetra Costa MCHC (RBC) [Mass/Vol] 32.8 g/dL Normal 29.9-35.2 [facility] Comment on above: Performed By: #### M G, RENAL, URIC #### [facility] [address] [place] [address] Dr. Demetra Costa MCV (RBC) [Entitic vol] 101.3 fL Critically high 81.0-99.0 [facility] Comment on above: Performed By: #### M G, RENAL, URIC #### [facility] [address] [place] [address] Dr. Demetra Costa PLT 279 103/ul Normal 150-450 [facility] Comment on above: Performed By: #### M G, RENAL, URIC #### [facility] [address] [place] [address] Dr. Demetra Costa RBC 3.98 106/ul Critically low 4.20-5.40 [facility] Comment on above: Performed By: #### M G, RENAL, URIC #### [facility] [address] [place] [address] Dr. Demetra Costa WBC 12.5 103/ul Critically high 4.0-11.0 [facility] Comment on above: Performed By: #### M G, RENAL, URIC #### [facility] [address] [place] [address] Dr. Demetra Costa MAGNESIUMon 09-16-2021 Magnesium [Mass/Vol] 1.9 mg/dL Normal 1.8-2.4 [facility] Comment on above: Performed By: #### U PARESH, CMP #### [facility] [address] [place] [address] Dr. Demetra Costa PROF CHEM 8 (BAS METB)on Anion gap [Moles/Vol] 13.3 mmol/L Normal [facility] Comment on above: Performed By: #### M G, RENAL, URIC #### [facility] [address] [address] [address] Demetra Costa Calcium [Mass/Vol] 9.3 mg/dL Normal 8.5-10.1 [facility] Comment on above: Performed By: #### M G, RENAL, URIC #### [facility] [address] [place] [address] Dr. Demetra Costa Performed By: #### U PARESH, CMP #### [facility] [address] [place] [address] Dr. Demetra Costa Chloride [Moles/Vol] 104 mmol/L Normal 98-107 [facility] Comment on above: Performed By: #### M G, RENAL, URIC #### [facility] [address] [place] [address] Dr. Demetra Costa Performed By: #### U PARESH, CMP #### [facility] [address] [place] [address] Dr. Demetra Costa CO2 [Moles/Vol] 23.6 mmol/L Normal 21.0-32.0 [facility] Comment on above: Performed By: #### M G, RENAL, URIC #### [facility] [address] [place] [address] Dr. Demetra Costa Creatinine [Mass/Vol] 1.40 mg/dL Critically high 0.55-1.02 [facility] Comment on above: Performed By: #### M G, RENAL, URIC #### [facility] [address] [place] [address] Dr. Demetra Costa EGFR-AF COLOMBIAN 45 mL/min/1.73m2 Critically low >=60 [facility] Comment on above: Performed By: #### M G, RENAL, URIC #### [facility] [address] [place] [address] Dr. Demetra Costa Performed By: #### U PARESH, CMP #### [facility] [address] [place] [address] Dr. Demetra Costa EGFR-NON AF COLOMBIAN 37 mL/min/1.73m2 Critically low >=60 [facility] Comment on above: Performed By: #### M G, RENAL, URIC #### [facility] [address] [place] [address] Dr. Demetra Costa Performed By: #### U PARESH, CMP #### [facility] [address] [place] [address] Dr. Demetra Costa Glucose [Mass/Vol] 110 mg/dL Critically high 74-106 [facility] Comment on above: Performed By: #### M G, RENAL, URIC #### [facility] [address] [place] [address] Dr. Demetra Costa Performed By: #### U PARESH, CMP #### [facility] [address] [place] [address] Dr. Demetra Costa Potassium [Moles/Vol] 4.9 mmol/L Normal 3.5-5.1 [facility] Comment on above: Performed By: #### M G, RENAL, URIC #### [facility] [address] [place] [address] Dr. Demetra Costa Performed By: #### U PARESH, CMP #### [facility] [address] [place] [address] Dr. Demetra Costa Sodium [Moles/Vol] 136 mmol/L Normal 136-145 [facility] Comment on above: Performed By: #### M G, RENAL, URIC #### [facility] [address] [place] [address] Dr. Demetra Costa Urea nitrogen [Mass/Vol] 38.0 mg/dL Critically high 7.0-18.0 [facility] Comment on above: Performed By: #### M G, RENAL, URIC #### [facility] [address] [place] [address] Dr. Demetra Costa Performed By: #### U PARESH, CMP #### [facility] [address] [place] [address] Dr. Demetra Costa Urea nitrogen/Creatinine [Mass ratio] 27.1 mg/mg Normal [facility] Comment on above: Performed By: #### M G, RENAL, URIC #### [facility] [address] [place] [address] Dr. Demetra Costa RENAL FUNCTION PANELon 09-16 Albumin [Mass/Vol] 3.2 g/dL Critically low 3.4-5.0 [facility] Comment on above: Performed By: #### U PARESH, CMP #### [facility] [address] [place] [address] Dr. Demetra Costa CO2 [Moles/Vol] 23.4 mmol/L Normal 21.0-32.0 [facility] Comment on above: Performed By: #### U PARESH, CMP #### [facility] [address] [place] [address] Dr. Demetra Costa Creatinine [Mass/Vol] 1.39 mg/dL Critically high 0.55-1.02 [facility] Comment on above: Performed By: #### U PARESH, CMP #### [facility] [address] [place] [address] Dr. Demetra Costa Phosphate [Mass/Vol] 3.8 mg/dL Normal 2.6-4.7 [facility] Comment on above: Performed By: #### U PARESH, CMP #### [facility] [address] [place] [address] Dr. Demetra Costa Sodium [Moles/Vol] 137 mmol/L Normal 136-145 [facility] Comment on above: Performed By: #### U PARESH, CMP #### [facility] [address] [place] [address] Dr. Demetra Costa URIC ACID SERUMon 09-16-2021 Urate [Mass/Vol] 4.0 mg/dL Normal 2.6-6.0 [facility] Comment on above: Performed By: #### U PARESH, CMP #### [facility] [address] [place] [address] Dr. Demetra Costa VITAMIN D 25 OHon 09-16-2021 VIT D 25-OH 38.1 ng/mL Normal [facility] Comment on above: Performed By: #### U PARESH, CMP #### [facility] [address] [place] [address] Dr. Demetra Costa VIT D RANGES SEE BELOW Normal [facility] Comment on above: Result Comment: <20 ng/mL Vit D deficient 20 - <30 ng/mL Vit D insufficient 30 - 100 ng/mL Vit D sufficient >100 ng/mL Potential Toxicity Performed By: #### U PARESH, CMP #### [facility] [address] [place] [address] Dr. Demetra Costa MRI [place] CONon 08-17-19 MRI [place] [facility] EXAMINATION: MRI [place] CON HISTORY: Lumbar radiculopathy , chronic [...] TERESA AZUL Date: 2021-08-16 15:11 Normal [facility] MG MAMM DX 3D RT CADon 07-23 MG MAMM DX 3D RT CAD Patient: SD REHMAN Exam Date: 07/23/2021 : 1950 Gender:F Ordering : DR OLIVIA FATIMA Admission #: [id number] Family : Order #: [id number] CLICK HERE TO VIEW EXAM RADIOLOGY REPORT [...] lung cancer at age 61. LOCATION: [facility] BREAST COMPOSITION: Heterogeneously dense,which may obscure small [...] Azul M.D. on 07/23/2021 at 15:03 Normal [facility] URIC ACIDon 10-14-2019 Urate [Mass/Vol] 5.3 mg/dL Normal 2.5-7.0 [facility] Comment on above: Result Comment: Ther apeutic target for gout patients: <6.0 mg/dL Performed By: #### 9 05 #### [facility]-[address], [address] [place], [place] [id number] [employer]house Laborer: Malik Ruiz MD URIC ACIDon 09-23-2019 Urate [Mass/Vol] 5.8 mg/dL Normal 2.5-7.0 [facility] Comment on above: Result Comment: Ther apeutic target for gout patients: <6.0 mg/dL Performed By: #### 9 05 #### [facility], [address] [place] [id number] Powerhouse Laborer: Malik Ruiz MD URIC ACIDon 07-29-2019 Urate [Mass/Vol] 6.7 mg/dL Normal 2.5-7.0 [facility] Comment on above: Result Comment: Ther apeutic target for gout patients: <6.0 mg/dL Performed By: #### 9 05 #### [facility]-[address], [address] [place] [address] Powerhouse Laborer: Malik Ruiz MD URIC ACIDon 07-01-2019 Urate [Mass/Vol] 8.4 mg/dL High 2.5-7.0 [facility] Comment on above: Result Comment: Ther apeutic target for gout patients: <6.0 mg/dL Performed By: #### 9 05 #### [facility]-[address], [address] [place] [address] Powerhouse Laborer: Malik Ruiz MD Vital Signs Date Time Vital Sign Value Performing Clinician Facility 08-20-2023 10:29-0400 Body height 158.[address] [facility] 08-20-2023 10:29-0400 Body mass index (BMI) [Ratio] 42.1 kg/m2 [facility] 08-20-2023 10:29-0400 Body temperature 98.3 [degF] [facility] 08-20-2023 10:29-0400 Body weight 106.[address] [facility] 08-20-2023 10:29-0400 Diastolic blood pressure 86 mm[Hg] [facility] 08-20-2023 10:29-0400 Heart rate 87 /min [facility] 08-20-2023 10:29-0400 Respiratory rate 18 /min [facility] 08-20-2023 10:29-0400 SaO2% (BldA) [Mass fraction] 98 % [facility] 08-20-2023 10:29-0400 Systolic blood pressure 157 mm[Hg] [facility] 07-16-2023 13:48-0400 Body height 157.5 cm [employer]ita BHAT Work Phone: [facility] [employer] [facility] 07-16-2023 13:48-0400 Body mass index (BMI) [Ratio] 42.07 kg/m2 [employer] Work Phone: [employer] [facility] 07-16-2023 13:48-0400 Body weight 104.33 kg Vita Joshi APRN-OVEN [employer]OR[employer] Work Phone: [employer] [facility] 12-16-2022 15:00-0400 Body height 158.75 cm Odell Karen Other [employer] Other 12-16-2022 15:00-0400 Body mass index (BMI) [Ratio] 42.83 kg/m2 Odell Karen Other [employer] Other 12-16-2022 15:00-0400 Body weight 107.96 kg Odell Karen Other [employer] Other 12-16-2022 15:00-0400 Diastolic blood pressure 74 mm[Hg] Odell Karen Other [employer] Other 12-16-2022 15:00-0400 Respiratory rate 18 /min Odell Karen Other [employer] Other 12-16-2022 15:00-0400 SaO2% (BldA) [Mass fraction] 98 % Odell Karen Other [employer] Other 12-16-2022 15:00-0400 Systolic blood pressure 124 mm[Hg] Odell Karen Other [employer] Other 09-03-2022 13:40-0400 Body height 158.8 cm Vita Joshi APRN-OVEN LABORER Work Phone: [employer] 09-03-2022 13:40-0400 Body mass index (BMI) [Ratio] 41.4 kg/m2 Vita Joshi APRN-OVEN LABORER Work Phone: [facility] 09-03-2022 13:40-0400 Body temperature 96.91 [degF] Vita Joshi APRN-OVEN LABORER Work Phone: [facility] 09-03-2022 13:40-0400 Body weight 104.33 kg Vita Joshi APRN-OVEN LABORER Work Phone: [facility] 07-30-2022 13:47-0400 Body height 157.5 cm Vita Joshi APRN-OVEN LABORER Work Phone: [facility] 07-30-2022 13:47-0400 Body mass index (BMI) [Ratio] 41.15 kg/m2 Vita Joshi APRN-OVEN LABORER Work Phone: [facility] 07-30-2022 13:47-0400 Body temperature 97 [degF] Vita Joshi APRN-OVEN LABORER Work Phone: [facility] 07-30-2022 13:47-0400 Body weight 102.06 kg Vita Joshi APRN-OVEN LABORER Work Phone: [facility] 07-09-2022 09:20-0400 Body height 157.5 cm Vita Joshi APRN-OVEN LABORER Work Phone: [facility] 07-09-2022 09:20-0400 Body mass index (BMI) [Ratio] 41.15 kg/m2 Vita Joshi APRN-OVEN LABORER Work Phone: [facility] 07-09-2022 09:20-0400 Body temperature 97.3 [degF] Vita Joshi DOLLY DRIVER-OVEN LABORER Work Phone: [facility] 07-09-2022 09:20-0400 Body weight 102.06 kg Vita Joshi APRN-OVEN LABORER Work Phone: [facility] 06-25-2022 13:00-0400 Body height 157.5 cm Jerilyn Baig Work Phone: [facility] 06-25-2022 13:00-0400 Body mass index (BMI) [Ratio] 41.15 kg/m2 [facility] 06-25-2022 13:00-0400 Body weight 102.06 kg Jerilyn Baig Work Phone: [facility] [employer] [facility] 06-11-2022 16:49-0400 Body temperature 97.7 [degF] Navin Clark MD Work Phone: [employer] [facility] 06-11-2022 16:49-0400 Diastolic blood pressure 63 mm[Hg] Navin Clark MD Work Phone: [employer] [facility] 06-11-2022 16:49-0400 Heart rate 68 /min Navin Clark MD Work Phone: [employer] [facility] 06-11-2022 16:49-0400 Respiratory rate 15 /min Navin Clark MD Work Phone: [employer] [facility] 06-11-2022 16:49-0400 SaO2% (BldA) [Mass fraction] 98 % Navin Clark MD Work Phone: [employer] 06-11-2022 16:49-0400 Systolic blood pressure 142 mm[Hg] Navin Clark MD Work Phone: [employer] [facility] 06-09-2022 10:43-0400 Body height 154.9 cm Navin Clark MD Work Phone: [employer] [facility] 06-09-2022 10:43-0400 Body mass index (BMI) [Ratio] 42.61 kg/m2 Navin Clark MD Work Phone: [employer] [facility] 06-09-2022 10:43-0400 Body weight 102.29 kg Navin Clark MD Work Phone: [employer] [facility] 05-02-2022 14:15-0500 Body height 157.5 cm Dennis Lomas MD Work Phone: [facility] 05-02-2022 14:15-0500 Body temperature 97.2 [degF] Dennis Lomas MD Work Phone: [facility] 05-02-2022 14:15-0500 Body weight 101.42 kg Dennis Lomas MD Work Phone: [facility] 05-02-2022 14:15-0500 Diastolic blood pressure 74 mm[Hg] Dennis Lomas MD Work Phone: [facility] 05-02-2022 14:15-0500 Heart rate 94 /min Dennis Lomas MD Work Phone: [facility] 05-02-2022 14:15-0500 Respiratory rate 16 /min eDnnis Lomas MD Work Phone: [facility] 05-02-2022 14:15-0500 SaO2% (BldA) [Mass fraction] 97 % Dennis Lomas MD Work Phone: [facility] 05-02-2022 14:15-0500 Systolic blood pressure 149 mm[Hg] Dennis Lomas MD Work Phone: [facility] 02-28-2022 14:39-0500 Body height 157.5 cm Dennis Lomas MD Work Phone: [facility] 02-28-2022 14:39-0500 Body temperature 97.11 [degF] Dennis Lomas MD Work Phone: [facility] 02-28-2022 14:39-0500 Body weight 100.7 kg Dennis Lomas MD Work Phone: [facility] 02-28-2022 14:39-0500 Diastolic blood pressure 72 mm[Hg] Dennis Lomas MD Work Phone: [facility] 02-28-2022 14:39-0500 Heart rate 85 /min Dennis Lomas MD Work Phone: [facility] 02-28-2022 14:39-0500 Respiratory rate 16 /min Dennis Lomas MD Work Phone: [facility] 02-28-2022 14:39-0500 SaO2% (BldA) [Mass fraction] 96 % Dennis Lomas MD Work Phone: [facility] 02-28-2022 14:39-0500 Systolic blood pressure 147 mm[Hg] Dennis Lomas MD Work Phone: [facility] 02-19-2022 14:17-0500 Body height 157.5 cm Navin Clark MD Work Phone: [facility] 02-19-2022 14:17-0500 Body mass index (BMI) [Ratio] 41.26 kg/m2 Navin Clark MD Work Phone: [facility] 02-19-2022 14:17-0500 Body temperature 96.69 [degF] Navin Clark MD Work Phone: [facility] 02-19-2022 14:17-0500 Body weight 102.33 kg Navin Clark MD Work Phone: [facility] 01-02-2022 14:25-0400 Body height 157.5 cm Navin Clark MD Work Phone: [facility] 01-02-2022 14:25-0400 Body mass index (BMI) [Ratio] 42.07 kg/m2 Navin Clark MD Work Phone: [facility] [employer] [facility] 01-02-2022 14:25-0400 Body temperature 96.6 [degF] Navin Clark MD Work Phone: [facility] [employer] [facility] 01-02-2022 14:25-0400 Body weight 104.33 kg Navin Clark MD Work Phone: [facility] 10-24-2021 15:00-0400 Body height 158.75 cm Curtis Watkins Other [employer] Other 10-24-2021 15:00-0400 Body mass index (BMI) [Ratio] 41.39 kg/m2 Curtis Watkins Other [employer] Other 10-24-2021 15:00-0400 Body weight 104.33 kg Curtis Watkins Other [employer] Other 09-26-2021 13:20-0400 Body height 158.75 cm Odell Karen Other [employer] Other 09-26-2021 13:20-0400 Body mass index (BMI) [Ratio] 41.54 kg/m2 Odell Karen Other [employer] Other 09-26-2021 13:20-0400 Body temperature 97.6 [degF] Odell Karen Other [employer] Other 09-26-2021 13:20-0400 Body weight 104.69 kg Odell Karen Other [employer] Other 09-26-2021 13:20-0400 Diastolic blood pressure 80 mm[Hg] Odell Karen Other [employer] Other 09-26-2021 13:20-0400 Respiratory rate 18 /min Odell Karen Other [employer] Other 09-26-2021 13:20-0400 SaO2% (BldA) [Mass fraction] 97 % Odell Karen Other [employer] Other 09-26-2021 13:20-0400 Systolic blood pressure 146 mm[Hg] Odell Karen Other [employer] Other 02-21-2021 13:40-0500 Body height 158.75 cm Odell Karen Other [employer] Other 02-21-2021 13:40-0500 Body mass index (BMI) [Ratio] 43.79 kg/m2 Odell Karen Other [employer] Other 02-21-2021 13:40-0500 Body temperature 97.2 [degF] Odell Karen Other [employer] Other 02-21-2021 13:40-0500 Body weight 110.36 kg Odell Karen Other [employer] Other 02-21-2021 13:40-0500 Diastolic blood pressure 74 mm[Hg] Odell Karen Other [employer] Other 02-21-2021 13:40-0500 Respiratory rate 18 /min Odell Karen Other [employer] Other 02-21-2021 13:40-0500 SaO2% (BldA) [Mass fraction] 96 % Odell Karen Other [employer] Other 02-21-2021 13:40-0500 Systolic blood pressure 136 mm[Hg] Odell Karen Other [employer] Other 12-17-2020 12:15-0400 Body height 158.75 cm Malina Ginty Other [employer] Other 12-17-2020 12:15-0400 Body mass index (BMI) [Ratio] 43.73 kg/m2 Malina Ginty Other [employer] Other 12-17-2020 12:15-0400 Body temperature 97.3 [degF] Malina Milynty Other [employer] Other 12-17-2020 12:15-0400 Body weight 110.22 kg Malina Milynty Other [employer] Other 12-17-2020 12:15-0400 SaO2% (BldA) [Mass fraction] 95 % Malina Ginty Other [employer] Other Encounters Encounter Date Encounter Type Care Provider Facility Start: 10-23-2023 ambulatory [facility] Start: 10-21-2023 End: 10-21-2023 ambulatory [facility] Start: 09-29-2023 End: 09-29-2023 ambulatory [facility] Start: 09-15-2023 End: 09-15-2023 ambulatory [facility] Work Phone: Start: 09-15-2023 End: 09-15-[address] [facility] Work Phone: [facility] Start: 09-09-2023 End: 09-10-2023 Evaluation and management of inpatient [facility] Start: 08-24-2023 End: 08-24-2023 ambulatory [facility] Start: 08-24-2023 End: 08-24-2023 ambulatory [facility] Start: 08-20-2023 End: 08-20-2023 ambulatory [facility] Work Phone: Start: 08-20-2023 End: 08-20-2023 Patient encounter procedure [facility] Work Phone: Start: 07-22-2023 End: 07-22-2023 ambulatory [facility] Start: 07-16-2023 ambulatory [facility] Start: 07-16-2023 End: 07-16-2023 Office outpatient visit 25 minutes Vita Joshi APRN-OVEN LABORER Work Phone: [facility] Comment on above: Hx of total knee art hroplasty, right (Primary Dx) Start: 07-16-2023 End: 07-16-2023 Subsequent hospital visit by physician Vita Joshi APRN-OVEN LABORER Work Phone: [facility] Start: 06-08-2023 Tanya lockwood [facility] Start: 12-16-2022 End: 12-16-2022 ambulatory Odell Karen Other [employer] Other Start: 12-16-2022 Office outpatient vi sit 25 minutes Odell Karen [facility] Start: 12-15-2022 End: 12-15-2022 ambulatory [facility] Start: 10-09-2022 ambulatory [facility] Start: 10-09-2022 End: 10-09-2022 Subsequent hospital visit by physician Navin Clark MD Work Phone: [facility] Start: 09-22-2022 End: 09-22-2022 ambulatory [facility] Start: 09-03-2022 ambulatory [facility] Start: 09-03-2022 End: 09-03-2022 Postop follow up visit related to original px Vita Joshi APRN-OVEN LABORER Work Phone: [facility] Comment on above: Hx of total knee art hroplasty, right (Primary Dx) Start: 09-03-2022 End: 09-03-2022 Subsequent hospital visit by physician Navin Clark MD Work Phone: [facility] Start: 07-30-2022 ambulatory SEL[facility] SEL[facility] Start: 07-30-2022 End: 07-30-2022 Postop follow up visit related to original px Vita BHAT Work Phone: [facility] Comment on above: Hx of total knee art hroplasty, right (Primary Dx) Start: 07-09-2022 End: 07-09-2022 Postop follow up visit related to original px Vita BHAT Work Phone: [facility] Comment on above: Hx of total knee art hroplasty, right (Primary Dx) Start: 06-25-2022 End: 06-25-2022 Postop follow up visit related to original px Jerilyn Ronan Baig Work Phone: [facility] Comment on above: Hx of total knee art hroplasty, right (Primary Dx) Start: 06-09-2022 End: 06-11-2022 Evaluation and management of inpatient Navin Clark MD Work Phone: [facility] Comment on above: Benign hypertension Start: 06-09-2022 End: 06-11-2022 Patient encounter status Navin Clark MD Work Phone: [facility] Start: 05-29-2022 End: 05-30-[address] DOCTOR NAVARRETE Facility:[facility] Start: 05-28-2022 End: 05-29-2022 ambulatory ODELL JONES Facility: Start: 05-02-2022 End: 05-02-2022 ambulatory DENNIS LOMAS Facility:[facility] Start: 05-02-2022 End: 05-02-2022 Office outpatient visit 15 minutes Dennis Lomas MD Work Phone: Hematology/Oncology Comment on above: Bandemia (Primary Dx ) Start: 03-11-2022 ambulatory VITA JOSHI [facility] Start: 03-11-2022 End: 03-11-2022 Subsequent hospital visit by physician Vita BHAT Work Phone: [facility] Comment on above: Arrived Start: 03-10-2022 ambulatory VITA MADELYN [facility] Start: 02-28-2022 End: 02-28-2022 ambulatory Dennis Lomas MD Work Phone: Hematology/Oncology Comment on above: Bandemia (Primary Dx ); Chronic obstructive pulmonary disease, unspecified COPD type (HCC); Macrocytosis without anemia Start: 02-28-2022 End: 02-28-2022 Patient encounter procedure Dennis Lomas MD Work Phone: [facility] Start: 02-27-2022 End: 02-28-[address] DOMINIC CARDENAS Facility: Start: 02-25-2022 Chart abstracting Dennis espinal MD Work Phone: Hematology/Oncology Start: 02-19-2022 End: 02-19-2022 Office outpatient visit 40 minutes Navin Clark MD Work Phone: [facility] Comment on above: Pain in prosthetic j oint, sequela (Primary Dx) Start: 02-17-2022 End: 02-18-2022 ambulatory ODELL JONES Facility:[facility] Start: 01-27-2022 End: 01-28-[address] PATRICK ODOM Facility:[facility] Start: 01-02-2022 End: 01-02-2022 Office outpatient new 30 minutes Navin Clark MD Work Phone: [facility] Comment on above: Pain in prosthetic j oint, sequela (Primary Dx) Start: 01-02-2022 End: 01-02-2022 Subsequent hospital visit by physician Navin Clark MD Work Phone: [facility] Start: 12-14-2021 End: 12-14-2021 Emergency department patient visit Jignesh He Facility:[facility] Start: 12-14-2021 End: 12-15-2021 ambulatory Jignesh He Facility:[facility] Start: 12-06-2021 Encounter for preprocedural laboratory examination DR ZINA CRAWFORD [facility] Start: 12-03-2021 End: 12-03-[address] ZINA CRAWFORD Facility:[facility] Start: 11-30-2021 End: 12-01-[address] ZINA CRAWFORD Facility:[facility] Start: 11-30-2021 End: 12-01-2021 Encounter for preprocedural laboratory examination DR ZINA CRAWFORD Facility:[facility] Start: 11-26-2021 End: 11-26-2021 ambulatory Odell Karen Other [facility] [employer] Other Start: 11-26-2021 Telephone encounter Odell Karen [facility] Start: 11-21-2021 End: 11-21-[address] IRWIN JACQUES . Facility:[facility] Start: 11-04-2021 End: 11-05-[address] PATRICK ODOM Facility:[facility] Start: 11-01-2021 End: 11-02-2021 ambulatory MOHAMUD SUSI . Facility:[facility] Start: 10-24-2021 End: 10-24-2021 ambulatory Curtis Watkins Other [employer] Other Start: 10-24-2021 Office outpatient ne w 30 minutes Curtis Watkins [facility] [place] Start: 10-03-2021 End: 12-23-2021 ambulatory CHRIS MOLINA Facility:[facility] Start: 10-02-2021 End: 10-24-[address] DOCTOR NAVARRETE Facility:[facility] Start: 09-27-2021 End: 09-27-2021 ambulatory MOHAMUD SUSI . Facility:[facility] Start: 09-26-2021 End: 09-27-2021 ambulatory ODELL KAREN [facility] [employer] Other Start: 09-26-2021 Office outpatient vi sit 25 minutes Odell Karen [facility] [place] Start: 09-19-2021 End: 09-19-2021 ambulatory ODELL KAREN Facility:[facility] Start: 09-19-2021 End: 09-20-2021 ambulatory CHRIS JESSE Facility:[facility] Start: 09-16-2021 End: 09-17-2021 ambulatory ODELL KAREN Facility:[facility] Start: 09-13-2021 End: 09-14-[address] PATRICK ODOM Facility:[facility] Start: 08-30-2021 End: 08-30-2021 ambulatory MOHAMUD SUSI . Facility:[facility] Start: 08-16-2021 End: 08-17-2021 ambulatory CHRIS MOLINA Facility:[facility] Start: 08-16-2021 End: 08-17-2021 ambulatory MOHAMUD SUSI . Facility:[facility] Start: 07-23-2021 End: 07-24-[address] OLIVIA FATIMA Facility:[facility] Start: 02-21-2021 End: 02-21-2021 ambulatory Odell Karen Other [employer] Other Start: 02-21-2021 Office outpatient vi sit 25 minutes Odell Karen [facility] [place] Start: 12-17-2020 Office outpatient vi sit 15 minutes Malina Ginty [facility] [place] Start: 10-21-2016 End: 10-22-2016 Ambulatory DEFAULT PHYSICIAN Facility:[facility] Procedures Date Procedure Procedure Detail Performing Clinician Start: 12-31-2022 Adult depression scr eening assessment Nati Cueva CMA Start: 06-11-2022 Complete blood count with white cell differential, automated Jerilyn Baig Work Phone: Start: 06-11-2022 Renal function panel Jannet Henderson MD Work Phone: Start: 06-10-2022 Sars-cov-2 detection by dna/rna Vita Joshi APRN-OVEN LABORER Work Phone: Start: 06-10-2022 Renal function panel Jannet Henderson MD Work Phone: Start: 06-09-2022 Radiologic examinati on knee 1/2 views Jerilyn Baig Work Phone: Start: 06-09-2022 Cell count misc body fluids w/differential count Navin Clark MD Work Phone: Start: 06-09-2022 Cul bact norah [employer] isol xcpt ur blood/stool aNvin Clark MD Work Phone: Start: 06-09-2022 End: 06-09-2022 Revj tot knee arthrp fem&entire tibial compone Navin Clark MD Work Phone: Start: 06-09-2022 Blood group typing, RH phenotyping Roland Moe DO Work Phone: Start: 06-09-2022 Cultyp nuc acid amp prb cult/isolate ea orgnism Navin Clark MD Work Phone: Start: 03-11-2022 Rp loclzj lori plnr w hole body single day imaging Vita Joshi DOLLY DRIVER-[employer] Work Phone: Start: 02-19-2022 Arthrocentesis aspir &/inj major jt/bursa w/o us Navin Clark MD Work Phone: Plan of Treatment Date Care Activity Detail Author Start: 05-02-2025 DIABETES SCREEN DIABETES SCREEN [facility] Start: 01-01-2024 Adult BMI Screening Adult BMI Screen ing [facility] Start: 01-01-2024 Depression Screening Depression Scre ening [facility] Start: 01-01-2024 Fall Risk Screening Fall Risk Screen ing [facility] Start: 01-01-2024 Tobacco Screening Tobacco Screening [facility] Start: 09-29-2023 End: 09-29-2023 Patient encounter procedure 09/29/2023 2:00 PM EDT Office Visit [facility] [address] [place] [address] [facility] Start: 09-19-2023 Medicare Annual Well ness Visit Medicare Annual Wellness Visit [facility] Start: 06-12-2023 Potassium [Moles/vol ume] in Serum or Plasma POTASSIUM [facility] Start: 06-03-2023 End: 06-03-2023 Patient encounter procedure [facility] Start: 11-21-2022 Influenza vaccination A [facility] Start: 10-09-2022 End: 10-09-2022 Patient encounter procedure [facility] Start: 09-03-2022 End: 09-03-2022 Patient encounter procedure 09/03/2022 Office Visit Vita Joyce, 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 DRIVER[employer] [address] [place] [address] [facility] Start: 07-30-2022 End: 07-30-2022 Patient encounter procedure 07/30/2022 Office Visit Vita Joyce, 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 DRIVER[employer] [address] [place] [address] [facility] Start: 07-25-2022 End: 09-24-2022 C reactive protein [Mass/volume] in Serum or Plasma C-REACTIVE PROTEIN (CRP) Lab Routine Bandemia Expected: 07/25/2022 (Approximate), Expires: 09/24/2022 [facility] Work Phone: Comment on above: Expected: 07/25/2022 (Approximate), Expires: 09/24/2022 Start: 07-25-2022 End: 05-02-2023 CBC W Auto Differential panel - Blood CBC + DIFF Lab Routine Bandemia Expected: 07/25/2022 (Approximate), Expires: 05/02/2023 [facility] Work Phone: Comment on above: Expected: 07/25/2022 (Approximate), Expires: 05/02/2023 Start: 07-25-2022 End: 05-02-2023 Comprehensive metabolic 2000 panel - Serum or Plasma COMP METABOLIC PANEL Lab Routine Bandemia Expected: 07/25/2022 (Approximate), Expires: 05/02/2023 [facility] Work Phone: Comment on above: Expected: 07/25/2022 (Approximate), Expires: 05/02/2023 Start: 07-25-2022 End: 09-24-2022 Erythrocyte sedimentation rate SED RATE WESTERGREN Lab Routine Bandemia Expected: 07/25/2022 (Approximate), Expires: 09/24/2022 [facility] Work Phone: Comment on above: Expected: 07/25/2022 (Approximate), Expires: 09/24/2022 Start: 07-25-2022 End: 05-02-2023 Lactate dehydrogenase [Enzymatic activity/volume] in Serum or Plasma LD LACTATE DEHYDRO Lab Routine Bandemia Expected: 07/25/2022 (Approximate), Expires: 05/02/2023 [facility] Work Phone: Comment on above: Expected: 07/25/2022 (Approximate), Expires: 05/02/2023 Start: 07-25-2022 End: 09-24-2022 Urate [Mass/volume] in Serum or Plasma URIC ACID BLOOD Lab Routine Bandemia Expected: 07/25/2022 (Approximate), Expires: 09/24/2022 [facility] Work Phone: Comment on above: Expected: 07/25/2022 (Approximate), Expires: 09/24/2022 Start: 07-09-2022 End: 07-09-2022 Patient encounter procedure 07/09/2022 Office Visit Orthopaedics 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 [address] [facility] Start: 06-25-2022 End: 06-25-2022 Patient encounter procedure 06/25/2022 Office Visit Orthopaedics Jerilyn Baig [address] [facility] [address] [facility] Start: 05-15-2022 End: 05-15-2022 ambulatory 05/15/2022 Pre-Operative Nurse Assessment Internal Medicine [facility] Pre Admission Start: 05-01-2022 End: 07-01-2022 C reactive protein [Mass/volume] in Serum or Plasma C-REACTIVE PROTEIN (CRP) Lab Routine Macrocytosis without anemia Expected: 05/01/2022 (Approximate), Expires: 07/01/2022 [facility] Work Phone: Comment on above: Expected: 05/01/2022 (Approximate), Expires: 07/01/2022 Start: 05-01-2022 End: 02-28-2023 CBC W Auto Differential panel - Blood CBC + DIFF Lab Routine Macrocytosis without anemia Expected: 05/01/2022 (Approximate), Expires: 02/28/2023 [facility] Work Phone: Comment on above: Expected: 05/01/2022 (Approximate), Expires: 02/28/2023 Start: 05-01-2022 End: 02-28-2023 Cobalamin (Vitamin B12) [Mass/volume] in Serum or Plasma VITAMIN B12 BLOOD Lab Routine Macrocytosis without anemia Expected: 05/01/2022 (Approximate), Expires: 02/28/2023 [facility] Work Phone: Comment on above: Expected: 05/01/2022 (Approximate), Expires: 02/28/2023 Start: 05-01-2022 End: 02-28-2023 Comprehensive metabolic 2000 panel - Serum or Plasma COMP METABOLIC PANEL Lab Routine Macrocytosis without anemia Expected: 05/01/2022 (Approximate), Expires: 02/28/2023 [facility] Work Phone: Comment on above: Expected: 05/01/2022 (Approximate), Expires: 02/28/2023 Start: 05-01-2022 End: 07-01-2022 Erythrocyte sedimentation rate SED RATE WESTERGREN Lab Routine Macrocytosis without anemia Expected: 05/01/2022 (Approximate), Expires: 07/01/2022 [facility] Work Phone: Comment on above: Expected: 05/01/2022 (Approximate), Expires: 07/01/2022 Start: 05-01-2022 End: 02-28-2023 Ferritin [Mass/volume] in Serum or Plasma FERRITIN BLD Lab Routine Macrocytosis without anemia Expected: 05/01/2022 (Approximate), Expires: 02/28/2023 [facility] Work Phone: Comment on above: Expected: 05/01/2022 (Approximate), Expires: 02/28/2023 Start: 05-01-2022 End: 02-28-2023 Folate [Mass/volume] in Serum or Plasma FOLATE SERUM Lab Routine Macrocytosis without anemia Expected: 05/01/2022 (Approximate), Expires: 02/28/2023 [facility] Work Phone: Comment on above: Expected: 05/01/2022 (Approximate), Expires: 02/28/2023 Start: 05-01-2022 End: 02-28-2023 Iron and Iron binding capacity panel - Serum or Plasma IRON + TIBC Lab Routine Macrocytosis without anemia Expected: 05/01/2022 (Approximate), Expires: 02/28/2023 [facility] Work Phone: Comment on above: Expected: 05/01/2022 (Approximate), Expires: 02/28/2023 Start: 05-01-2022 End: 07-01-2022 Lactate dehydrogenase [Enzymatic activity/volume] in Serum or Plasma LD LACTATE DEHYDRO Lab Routine Macrocytosis without anemia Expected: 05/01/2022 (Approximate), Expires: 07/01/2022 [facility] Work Phone: Comment on above: Expected: 05/01/2022 (Approximate), Expires: 07/01/2022 Start: 03-23-2022 ADVANCE DIRECTIVE DISCUSSION ADVANCE DIRECTIVE DISCUSSION [facility] Start: 03-23-2022 DEPRESSION ASSESSMENT DEPRESSION ASS ESSMENT [facility] Start: 02-19-2022 End: 02-19-2022 Patient encounter procedure 02/19/2022 Office Visit Orthopaedics Navin Clark MD [address] [place] [address] [facility] Start: 11-21-2021 [facility] Start: 03-23-2021 ADVANCE DIRECTIVE DISCUSSION ADVANCE DIRECTIVE DISCUSSION [facility] Start: 03-23-2021 DEPRESSION ASSESSMENT DEPRESSION ASS ESSMENT [facility] Start: 03-13-2021 COVID-19 VACCINE (5 - Booster for Moderna series) COVID-19 VACCINE (5 - Booster for Moderna series) [facility] Start: 03-24-2019 DTaP,Tdap and Td Vaccines (2 - Td or Tdap) DTaP,Tdap and Td Vaccines (2 - Td or Tdap) [facility] Start: 03-24-2019 Tetanus vaccination TETANUS [facility] Start: 10-17-2017 Pneumococcal vaccination PNEUM OCOCCAL VACCINE SERIES (2 - PPSV23 if available, else PCV20) [facility] Start: 06-27-2016 BONE DENSITY BONE DENSITY [facility] Start: 06-27-2016 PNEUMOCOCCAL: 65+ (1 - PCV) PNEUMOCOCCAL: 65+ (1 - PCV) [facility] Start: 06-27-2001 Administration of varicella zoster vaccine Zoster (Shingles) Vaccine (1 of 2) [facility] Start: 06-27-2001 Influenza vaccination LUNG CANCER SC REENING [facility] Start: 06-27-2001 SHINGRIX VACCINE (1 of 2) SHINGRIX VACCINE (1 of 2) [facility] Start: 06-27-2001 Zoster vaccine hzv l chris for subcutaneous use ZOSTER (SHINGLES) VACCINE (1 of 2) [facility] Start: 06-27-1996 COLOGUARD (FIT-DNA) COLOGUARD (FIT-D NA) [facility] Start: 06-27-1996 Colonoscopy COLONOSCOPY [facility] Start: 06-27-1996 COLORECTAL CANCER SCREENING COLORECTAL CANCER SCREENING [facility] Start: 06-27-[address] COLONOGRAPHY [facility] Start: 06-27-1996 DIABETES SCREEN DIABETES SCREEN [facility] Start: 06-27-1996 FECAL OCCULT BLOOD FECAL OCCULT BLOO D [facility] Start: 06-27-1996 LIPID SCREEN LIPID SCREEN [facility] Start: 06-27-1996 Screening for malign ant neoplasm of colon COLORECTAL CANCER SCREENING DISCUSSION [facility] Start: 06-27-1996 SIGMOIDOSCOPY SIGMOIDOSCOPY [facility] Start: 1991 Lipid panel LIPID SCREENING [facility] Start: 1991 Mammography MAMMOGRAM [facility] Start: 1991 Screening for malign ant neoplasm of breast MAMMOGRAM SCREENING DISCUSSION [facility] Start: 06-27-1972 Screening for malign ant neoplasm of cervix CERVICAL CANCER SCREENING DISCUSSION [facility] Start: 06-27-1970 Urine microalbumin profile DTAP,TDAP,TD (1 - Tdap) [facility] Start: 06-27-1969 Adult BMI Follow Up Plan Adult BMI Follow Up Plan [facility] Start: 06-27-1969 HEPATITIS C SCREENING HEPATITIS C [facility] Start: 06-27-1957 Pneumococcal vaccination PNEUM OCOCCAL VACCINE SERIES (1 - PCV) [facility] Start: 1950 COVID-19 VACCINE (#1) COVID-19 VACCI NE (#1) [facility] Start: 1950 Hepatitis B vaccination HEP B VACCINE (1 of 3 - 3-dose series) [facility] Start: 1950 Hepatitis C screening HEPATITI S C VIRUS SCREENING [facility] Start: 1950 Potassium [Moles/vol ume] in Serum or Plasma POTASSIUM [facility] Start: 1950 Screening for osteoporosis DEXA SCAN DISCUSSION [facility] ANAEROBE CULTURE ANAEROBE CULTUR E Microbiology Routine Other mechanical complication of internal right knee prosthesis, initial encounter Release Upon Ordering for 1 Occurrences starting 06/09/2022 [facility] Comment on above: Release Upon Orderin g for 1 Occurrences starting 06/09/2022 ANAEROBE CULTURE ANAEROBE CULTUR E Microbiology Routine 06/09/2022 2:10 PM EDT [facility] Bacteria identified in Body fluid by Culture BODY FLUID CULTURE AND DIRECT SMEAR Microbiology [facility]ine [facility] identified in Unspecified specimen by Culture BACTERIAL CULTURE AND DIRECT SMEAR, LESION, TISSUE, DEVICE Microbiology Routine Other mechanical complication of internal right knee prosthesis, initial encounter Release Upon Ordering for 1 Occurrences starting 06/09/2022 [facility] Comment on above: Release Upon Orderin g for 1 Occurrences starting 06/09/2022 Fungus identified in Unspecified specimen by Culture FUNGUS CULTURE Microbiology Routine Other mechanical complication of internal right knee prosthesis, initial encounter Release Upon Ordering for 1 Occurrences starting 06/09/2022 [facility] Comment on above: Release Upon Orderin g for 1 Occurrences starting 06/09/2022 Fungus identified in Unspecified specimen by Culture FUNGUS CULTURE Microbiology Routine 06/09/2022 2:10 PM EDT [facility] Mycobacterium sp identified in Unspecified specimen by Organism specific culture ACID FAST CULTURE Microbiology Routine Other mechanical complication of internal right knee prosthesis, initial encounter Release Upon Ordering for 1 Occurrences starting 06/09/2022 [facility] Comment on above: Release Upon Orderin g for 1 Occurrences starting 06/09/2022 Mycobacterium sp identified in Unspecified specimen by Organism specific culture ACID FAST CULTURE Microbiology Routine 06/09/2022 2:10 PM EDT [employer] Radiography for bone length studies XR BONE LENGTH STUDY Imaging Routine Pain in prosthetic joint, sequela 01/02/2022 2:10 PM EDT [employer] [facility] Radiography for bone length studies XR BONE LENGTH STUDY Imaging Routine Hx of total knee arthroplasty, right 10/09/2022 1:20 PM EDT [employer] [facility] Work Phone: Renal function 2000 panel - Serum or Plasma [facility] TISSUE CULTURE TISSUE CULTURE Microbiology Routine 06/09/2022 2:10 PM EDT [employer] [facility] XR Knee - right 2 Views XR KNEE RIGHT 2 VIEWS Imaging Routine Pain in prosthetic joint, sequela 02/19/2022 2:12 PM EST [employer] [facility] XR Knee - right 2 Views XR KNEE RIGHT 2 VIEWS Imaging Routine Hx of total knee arthroplasty, right 06/25/2022 12:41 PM EDT [employer] [facility] XR Knee - right 2 Views XR KNEE RIGHT 2 VIEWS Imaging Routine Hx of total knee arthroplasty, right 07/09/2022 9:14 AM EDT [employer] [facility] XR Knee - right 2 Views XR KNEE RIGHT 2 VIEWS Imaging Routine Hx of total knee arthroplasty, right 07/30/2022 1:35 PM EDT [employer] [facility] XR Knee - right 3 Views XR KNEE RIGHT 3 VIEWS Imaging Routine Pain in prosthetic joint, sequela 01/02/2022 2:10 PM [facility]ks for a [facility] System Work Phone: XR Knee - right 3 Views XR KNEE RIGHT 3 VIEWS Imaging Routine Hx of total knee arthroplasty, right Ordered: 06/27/2022 [employer] Comment on above: Ordered: 06/27/2022 XR Knee - right 3 Views XR KNEE RIGHT 3 VIEWS Imaging Routine Hx of total knee arthroplasty, right 09/03/2022 1:33 PM [employer] Work Phone: XR Knee - right 3 Views XR KNEE RIGHT 3 VIEWS Imaging Routine Hx of total knee arthroplasty, right 10/09/2022 1:20 PM [facility] XR Knee - right 3 Views XR KNEE RIGHT 3 VIEWS Imaging Routine Hx of total knee arthroplasty, right 07/16/2023 1:45 PM [employer] Work Phone: [facility] Immunizations Immunization Date Immunization Notes Care Provider Viry larose 02-02-2023 Influenza Vaccine, Quadrivalent, Adjuvanted Nati [facility] 11-19-2022 Pneumococcal Conjuga te 20-valent Nati [facility] 11-19-2022 RSV, recombinant, protein subunit RSVpreF, adjuvant reconstituted, 0.5 mL, PF Nati [facility] 01-03-2021 Influenza, High-dose , Quadrivalent Nati [facility] 01-03-2021 influenza virus vaccine, unspecified formulation Navin Clark MD Work Phone: [facility] 06-21-2020 COVID-19, mRNA, LNP- S, PF, 100mcg/0.5mL Dose Nati [facility] 05-22-2020 COVID-19, mRNA, LNP- S, PF, 100mcg/0.5mL Dose Nati [facility] 01-25-2020 Influenza Vaccine, Quadrivalent, Adjuvanted Nati [facility] 03-24-2009 tetanus toxoid, redu eloisa diphtheria toxoid, and acellular pertussis vaccine, adsorbed [facility] Payers Date Payer Category Payer Self-pay [id number] 2016 Medicare [id number] 2015 Unknown 2015 Medicare [id number] 2. [id number] 1959 Unknown [id number] 1951 Unknown [id number] 2.16.84 0.1.221373.3.579.2.718 1951 Unknown [id number] 2.16.84 0.1.739356.3.579.2.718 1951 Unknown [id number] 2.16.8 40.1.464194.3.579.2.983 1951 Unknown [id number] 2.16.8 40.1.283592.3.579.2.983 1951 Unknown [id number] 2.16.8 40.1.450206.3.579.2.983 1951 Unknown [id number] 2.16.84 0.1.005873.3.579.2.593 1951 Unknown [id number] 2.16.84 0.1.429708.3.579.2.593 1951 Unknown [id number] 2.16.84 0.1.032369.3.579.2.593 1951 Unknown [id number] 2.16.84 0.1.209645.3.579.2.593 1951 Unknown [id number] 2.16.84 0.1.026621.3.579.2.593 1951 Unknown [id number] 2.16.84 0.1.826298.3.579.2.593 1951 Unknown [id number] 2.16.84 0.1.000145.3.579.2.593 1951 Unknown [id number] 2.16.84 0.1.330062.3.579.2.593 1951 Unknown [id number] 2.16.84 0.1.017187.3.579.2.593 1951 Unknown [id number] 2.16.84 0.1.735780.3.579.2.593 1951 Unknown [id number] 2.16.84 0.1.359820.3.579.2.593 1951 Unknown [id number] 2.16.84 0.1.882494.3.579.2.593 1951 Unknown [id number] 2.16.84 0.1.769837.3.579.2.593 1951 Unknown [id number] 2.16.84 0.1.138815.3.579.2.593 1951 Unknown [id number] 2.16.84 0.1.089857.3.579.2.593 1951 Unknown [id number] 2.16.84 0.1.664756.3.579.2.593 1951 Unknown [id number] 2.16.84 0.1.697005.3.579.2.593 1951 Unknown [id number] 2.16.84 0.1.968602.3.579.2.593 1951 Unknown [id number] 2.16.84 0.1.461925.3.579.2.593 1951 Unknown [id number] 2.16.84 0.1.868361.3.579.2.593 1951 Unknown [id number] 2.16.84 0.1.400758.3.579.2.593 1951 Unknown [id number] 2.16.84 0.1.231604.3.579.2.593 1951 Unknown [id number] 2.16.84 0.1.947637.3.579.2.593 1951 Unknown [id number] 2.16.84 0.1.364035.3.579.2.593 1951 Unknown [id number] 2.16.84 0.1.251792.3.579.2.593 1951 Unknown [id number] 2.16.8 40.1.439357.3.579.2.983 1951 Unknown [id number] 2.16.8 40.1.707701.3.579.2.983 1951 Unknown [id number] 2.16.8 40.1.437378.3.579.2.983 1951 Unknown [id number] 2.16.8 40.1.181891.3.579.2.983 1951 Unknown [id number] 2.16.8 40.1.552389.3.579.2. 1951 Unknown [id number] 2.16.8 40.1.758779.3.579.2.98 1951 Unknown [id number] 2.16.8 40.1.143253.3.579.2. 1951 Unknown [id number] 2.16.8 40.1.560453.3.579.2. 1951 Unknown [id number] 2.16.8 40.1.051704.3.579.2.1285 1951 Unknown [id number] 2.16.8 40.1.002907.3.579.2.1285 1951 Unknown [id number] 2.16.8 40.1.408054.3.579.2.1285 1951 Unknown [id number] 2.16.8 40.1.053189.3.579.2.1285 1951 Unknown [id number] 2.16.8 40.1.328129.3.579.2.1285 1951 Unknown [id number] 2.16.8 40.1.907105.3.579.2.1285 1951 Unknown [id number] 2.16.8 40.1.557506.3.579.2.128 1951 Unknown [id number] 2.16.8 40.1.000460.3.579.2.1285 1951 Unknown [id number] 2.16.8 40.1.727191.3.579.2.128 1951 Unknown [id number] 2.16.8 40.1.270634.3.579.2.1285 1951 Unknown [id number] 2.16.8 40.1.286761.3.579.2.1286 1951 Unknown [id number] 2.16.8 40.1.887921.3.579.2.1286 1951 Unknown [id number] 2.16.8 40.1.351712.3.579.2.1286 1951 Unknown [id number] 2.16.8 40.1.844589.3.579.2.1286 Unknown [facility] [id number] Unknown [id number] 2.16.8 40.1.209457.3.579.2.531 Social History Date Type Detail Facility Unknown if ever smoked [employer] Other Start: 09-03-2022 End: 07-16-2023 Sex Assigned At [facility] [employer] Start: 01-02-2022 Tobacco smoking status WVIS [facility] End: 02-07-2022 History of tobacco use Cigarette Smoker [employer] [facility] [facility] Start: 01-02-2022 End: 07-16-2023 Tobacco use and exposure Smokeless tobacco non-user [facility] [employer] [facility] Start: 01-02-2022 End: 07-16-2023 Alcohol intake [facility] (finding[facility] Start: 01-02-[address] [facility] Start: 1950 Sex Assigned At Not on file [employer] [facility] Start: 02-19-2022 End: 07-16-2023 Tobacco smoking status NHIS Ex-smoker [employer] Start: 08-20-2023 End: 02-07-2022 History of tobacco use Current smoker [employer] Tobacco smoking stat us WVIS Tobacco smoking consumption unknown [facility] Start: 02-28-2022 End: 07-16-2023 Cigarettes smoked current (pack per day) - [facility] Start: 02-28-2022 End: 05-02-2022 Alcohol intake Ex-drinker (finding) [facility] Start: 05-30-2022 End: 06-09-2022 Exposure to SARS-CoV-2 (event) Not sure [employer] [facility] Start: 12-31-2022 Alcohol intake Defer [facility] [employer] Do you belong to any clubs or organizations such as anabaptist groups, unions, fraternal or athletic groups, or school groups? Yes [facility] Are you now , , , , never or living with a partner? [facility] How often to you hav e a drink containing alcohol? 2-4 times a month [facility] How many standard dr inks containing alcohol do you have on a typical day? Patient does not drink [facility] How often do you hav e 6 or more drinks on 1 occasion? Never [facility] Do you feel stress - tense, restless, nervous, or anxious, or unable to sleep at night because your mind is troubled all the time - these days [OSQ] Not at all [facility] Start: 1950 Sex Assigned At Female [facility] Medical Equipment Procedure Code Equipment Code Equipment Origin al Text Equipment Identifier Dates Attune Knee Syst em Revision Crs Rotating Platform Insert Size 3 16mm Aox [id number] Start: 06-09-2022 [employer] Par[employer] ne Cement High-Viscosity With Gentamicin - [id number] Start: 06-09-2022 Attune Knee Syst em Revision Distal Femoral Augment Size 3 4mm Cemented [id number] Start: 06-09-2022 Attune Knee Syst em Revision Distal Femoral Augment Size 3 4mm Cemented [id number] Start: 06-09-2022 Attune Knee Syst em Revision Offset Stem Adaptor 4mm [id number] Start: 06-09-2022 [employer] [id number] Start: 06-09-2022 Comment on above: Description: ID: [id number] CODE:[id number] [employer] High-Viscosity With Gentamicin - [id number] Start: 06-09-2022 [employer] High-Viscosity With Gentamicin - [id number] Start: 06-09-2022 Attune Knee Syst em [...] 06-09-2022 Clinical Notes 12-17-2020 to 07-22-2023 Rebecca Odom - 07/16/2023 2:00 PM EDTChHOME Simpson - 07/16/2023 2:00 PM EDT Note Date & Type Note Facility 07-22-2023 Note Cardiology Clinic No te Subjective Sd Rehman is a 72 y.o. year old female patient with paroxysmal afib, HTN, GARETT with cpap, and mild MVR, presents for follow up. Patient adamantly denies any cardiac complaints or concerns. Patient denies any chest pain or shortness of breath. Patient denies any lower extremity edema, orthopnea, or proximal nocturnal dyspnea. No near-syncope or syncope. No dizziness or lightheadedness. LCST: 06/03/2022 Lexiscan nuclear study was performed [...] Overall, low risk for cardiovascular events. 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) S/P revision of total knee, right Stage 3a chronic kidney disease (CMS/HCC) Centrilobular emphysema (CMS/HCC) Drug-induced mental disorder (CMS/HCC) Solitary pulmonary nodule Family History Problem Relation Name Age of Onset Hypertension Mother Heart disease Mother Cancer Father Social History Tobacco Use Smoking status: Every Day Packs/day: .25 Types: Cigarettes Smokeless tobacco: Never Substance Use Topics Alcohol use: Yes Alcohol/week: 1.0 standard drink of alcohol Types: 1 Cans of beer per week Drug use: Never Review of Systems Cardiovascular: Negative for chest pain, claudication, dyspnea on exertion, irregular heartbeat, leg swelling, near-syncope, orthopnea, palpitations, paroxysmal nocturnal dyspnea and syncope. Neurological: Negative for light-headedness. Objective Visit Vitals BP 128/82 (BP Location: Left arm, Patient Position: Sitting) Pulse 71 Ht 1.575 m (5' 2 ) Wt 105 kg (232 lb) LMP (LMP Unknown) SpO2 97% BMI 42.43 kg/m??? OB Status Postmenopausal Smoking Status Every Day BSA 2.14 m??? Physical Exam General: Awake, alert, good [...] BY MOUTH EVERY DAY, Disp: , Rfl: ybbhsepmrrp-rtyutpygz-wqlyepgr 100-62.5-25 mcg blister with device, Trelegy Ellipta [...] by mouth if needed., Disp: , Rfl: rosuvastatin (Crestor) 20 mg tablet, rosuvastatin 20 mg tablet TAKE 1 TABLET BY MOUTH EVERY DAY, Disp: , Rfl: spironolactone (Aldactone) 25 mg tablet, Take by mouth once daily as directed., Disp: , Rfl: traMADol (Ultram) 50 mg tablet, 1-2 tabs every 6 hours as needed for severe pain, Disp: , Rfl (more content not included)... [facility] 07-22-2023 Note Patient here for 6 m o follow up PAF, hypertension, and hyperlipidemia. She will have labs at the end of the month for nephrology. Denies chest pain, SOB, lightheadedness/syncope, and bleeding on Eliquis. She doesn't think she's taking metoprolol. I did confirm this with the pharmacy, as she is not filling this. [facility] 07-16-2023 History of Present illness Narrative Ortho Nurse - Established Patient Intake Room#: 5 Date: 07/16/2023 1:50 PM Patient: Sd Rehman MR#: [id number] : 1950 Age: 73 y.o. 1yr R [...] DR Take 1 capsule by mouth daily. Ttckxhudxzw-Amxciscwf-Ishkxw (Trelegy Ellipta) 100-62.5-25 MCG/INH Aerosol Powder, breath [...] capsule by mouth daily., Disp: , Rfl: Zmrfqdkmosg-Slzhprlcd-Xqjqzx (Trelegy Ellipta) 100-62.5-25 MCG/INH Aerosol Powder, breath [...] on face to face time with patient. [facility] I have reviewed the findings of the clinical biomedical equipment support specialist and agree with their assessment. Ortho Nurse - Established Patient Intake Room#: 5 Date: 07/16/2023 1:50 PM Patient: Sd Rehman MR#: [id number] : 1950 Age: 73 y.o. 1yr R [...] DR Take 1 capsule by mouth daily. Vxxxbanfkuy-Lejhflegt-Ebikmu (Trelegy Ellipta) 100-62.5-25 MCG/INH Aerosol Powder, breath [...] capsule by mouth daily., Disp: , Rfl: Hduiyavxfgr-Sfnejlnnz-Ximnvg (Trelegy Ellipta) 100-62.5-25 MCG/INH Aerosol Powder, breath [...] No Known Allergies. documented in this encounter [facility] 12-16-2022 Evaluation note Encounter Date Diagnosis Assessment [...] within the goal but has low Iron. [employer] Other 09-25-2023 NotePatient here for 2 mo follow up abnormal stress test and PAF. Denies chest pain, palpitations, SOB, and bleeding on Eliquis. She doesn't think she's taking metoprolol and she isn't sure why. 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 Review of Systems Musculoskeletal: Positive for arthritis and joint pain. 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 non-steroidal anti-inflammatories (nsaid) S/P [...] BY MOUTH EVERY DAY, Disp: , Rfl: bttefrkuybd-hxaqxbbai-nwmvsinf 100-62.5-25 mcg blister with device, Trelegy Ellipta 100 mcg-62.5 mcg-25 mcg powder for inhalation INHALE 1 PUFF EVERY DAY BY INHALATION ROUTE, Disp: , Rfl: folic acid (more content not included)...[facility] 09-22-2022 NoteCardiology Clinic Note Subjective [...] multiple sites without tophus Morbid obesity (CMS/HCC) care home (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 non-steroidal anti-inflammatories (nsaid) S/P [...] FOR BLOOD CLOT PREVENTION, Disp: , Rfl: uxsczuyqauo-sgevcoiey-ebwpvjqn 100-62.5-25 mcg blister with device, Trelegy Ellipta [...] (Crestor) 20 mg table (more content not included)...[facility]07-03-[facility] NoteCardiology Clinic Note Subjective Sd [...] multiple sites without tophus 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 She is at 50 % weight bearing and has full ROM. She has been doing PT every day along with OT. She has no pain today. Her Right TKA was on 06-09-22. Date: 09/03/2022 1:45 PM Patient: dS Rehman MR#: [id number] : 1950 Age: 72 y.o. Referring Physician: [...] mouth 2 times daily. 60 tablet 1 Vhfgnjxnlvg-Tnspgniuf-Iovrvq (Trelegy Ellipta) 100-62.5-25 MCG/INH Aerosol Powder, breath [...] Allergies: She has No Known Allergies. * [facility] - 09/03/2022 1:40 PM EDT SUBJECTIVE: Sd is an established patient of [employer]. Here today for followup. She is now [...] 4- month appointment or sooner as needed. (DOC:[id number]) I have reviewed the findings of the clinical biomedical equipment support specialist and agree with their assessment. [facility] Ortho Nurse - Established Patient Intake Room#: 5--1 month follow up for weight bearing statis. She is at 50 % weight bearing and has full ROM. She has been doing PT every day along with OT. She has no pain today. Her Right TKA was on 06-09-22. Date: 09/03/2022 1:45 PM Patient: Sd Rehman MR#: [id number] : 1950 Age: 72 y.o. Referring Physician: Navin Clark MD Insurance: Payor: MEDICARE ANTHEM HMO OR PPO / Plan: MEDICARE [employer] HMO OR PPO / Product Type: *NoProduct [...] mouth 2 times daily. 60 tablet 1 Eoxsoracehe-Ogafqkasl-Lkbvab (Trelegy Ellipta) 100-62.5-25 MCG/INH Aerosol Powder, breath [...] has No Known Allergies. [facility] History of Present illness Narrative* Rebecca Odom - 07/30/2022 1:20 PM EDT Ortho Nurse - Established Patient Intake Room#: 5 Date: 07/30/2022 1:48 PM Patient: Sd Rehman MR#: [id number] : 1950 Age: 72 y.o. 7wk R [...] mouth 2 times daily. 60 tablet 1 Kgeldvjlkem-Xuvssdaln-Muzioe (Trelegy Ellipta) 100-62.5-25 MCG/INH Aerosol Powder, breath [...] 2 times daily., Disp: 60 tablet, Rfl:1 Ktcyqirdceh-Qfivjzgeg-Dcleam (Trelegy Ellipta) 100-62.5-25 MCG/INH Aerosol Powder, breath [...] has No Known Allergies. * Vita Joshi, DOLLY DRIVER-OVEN LABORER - 07/30/2022 1:20 PM EDT SUBJECTIVE: Sd is an established patient of [employer]. She is here today for followup. She [...] pain. She is still residing in the senior living. PHYSICAL EXAMINATION: GENERAL: She is alert, oriented, [...] any questions or concerns in the meantime. (DOC:[id number]) I have reviewed the findings of the clinical biomedical equipment support specialist and agree with their assessment. Vita Joshi APRN-ADONIS Ortho Nurse - Established Patient Intake Room#: 5 Date: 07/30/2022 1:48 PM Patient: Sd Rehman MR#: [id number] : 1950 Age: 72 y.o. 7wk R [...] mouth 2 times daily. 60 tablet 1 Fvxsmlbqqoe-Kgizzlwva-Qtsukd (Trelegy Ellipta) 100-62.5-25 MCG/INH Aerosol Powder, breath [...] 2 times daily., Disp: 60 tablet, Rfl:1 Weyinbkxaxi-Bspsggloi-Uodyof (Trelegy Ellipta) 100-62.5-25 MCG/INH Aerosol Powder, breath [...] has No Known Allergies. [facility] in [facility] History of Present illness Narrative* Rebecca Lei - 07/09/2022 9:00 AM EDT Ortho Nurse - Established Patient Intake Room#: 4 Date: 07/09/2022 9:21 AM Patient: Sd Rehman MR#: [id number] : 1950 Age: 72 y.o. 4wk R TKA Pt stated she is doing ok and has at time a feeling of electric shock but denies any painat this time.0/10 on the pain scale. Pt was wearing her brace and in a wheelchair at the time of visit. Referring Physician: Self, Self Insurance: Payor: MEDICARE [employer] HMO OR PPO / Plan: MEDICARE ANTH [...] mouth 2 times daily. 60 tablet 1 Jxuyospqnzp-Fmvdumtly-Dwiqac (Trelegy Ellipta) 100-62.5-25 MCG/INH Aerosol Powder, breath [...] 2 times daily., Disp: 60 tablet, Rfl:1 Lmsjtvvaqvp-Jcyfuncyp-Twwmct (Trelegy Ellipta) 100-62.5-25 MCG/INH Aerosol Powder, breath [...] has No Known Allergies. * Vita Joshi APRN-OVEN LABORER - 07/09/2022 9:00 AM EDT SUBJECTIVE: Sd is an established patient of [facility]. She is here today for followup. She [...] that time and slow advance as needed. (DOC:[id number]) I have reviewed the findings of the clinical biomedical equipment support specialist and agree with their assessment. Vita Joshi APRN-ADONIS Ortho Nurse - Established Patient Intake Room#: 4 Date: 07/09/2022 9:21 AM Patient: Sd Rehman MR#: [id number] : 1950 Age: 72 y.o. 4wk R [...] mouth 2 times daily. 60 tablet 1 Qucdaisrvyz-Flgdlzaai-Lylwpm (Trelegy Ellipta) 100-62.5-25 MCG/INH Aerosol Powder, breath [...] 2 times daily., Disp: 60 tablet, Rfl:1 Vudxtsjkpfj-Zsiadknkv-Ofdwbk (Trelegy Ellipta) 100-62.5-25 MCG/INH Aerosol Powder, breath [...] has No Known Allergies. documented in this [facility]04-05-2023 History of Present illness Narrative* Rebecca Odom - 06/25/2022 1:00 PM EDT Ortho Nurse - Established Patient Intake Room#: 4 Date: 06/25/2022 1:01 PM Patient: Sd Rehman MR#: [id number] : 1950 Age: 71 y.o. 2wk R [...] mouth 2 times daily. 60 tablet 1 Nkuhohdmzjp-Jkqugoboq-Hnatsi (Trelegy Ellipta) 100-62.5-25 MCG/INH Aerosol Powder, breath [...] 2 times daily., Disp: 60 tablet, Rfl:1 Xqlfegxwkgl-Uagslyqbc-Gfcczf (Trelegy Ellipta) 100-62.5-25 MCG/INH Aerosol Powder, breath [...] to date. She iscurrently residing at [facility] where she is receiving PT/OT daily. She [...] dehiscence, jonah were removed by staff at [place]. There is area of bruising to the [...] I explained therapy and [facility] staff [facility] to evaluate ability to do this with protection of her ROM restriction and NWB status. Jolene at the [facility] reports will speak with nursing regarding this. [...] understanding. All pertinent portions of the clinical biomedical equipment support specialist documentation was reviewed and agree. Jerilyn Baig I have reviewed the findings of the clinical biomedical equipment support specialist and agree with their assessment. Jerilyn Baig I have reviewed the findings of the clinical biomedical equipment support specialist and agree with their assessment. Jerilyn Baig Ortho Nurse - Established Patient Intake Room#: 4 Date: 06/25/2022 1:01 PM Patient: Sd Rehman MR#: [id number] : 1950 Age: 71 y.o. 2wk R [...] left in 2006 -right 2008---Dr. Stepanic APPENDECTOMY BREAST BIOPSY Bilateral TONSILLECTOMY Family History: [...] mouth 2 times daily. 60 tablet 1 Idojztzjxab-Kpskxizzo-Llcqif (Trelegy Ellipta) 100-62.5-25 MCG/INH Aerosol Powder, breath [...] 2 times daily., Disp: 60 tablet, Rfl:1 Hkkfedknduq-Wzevsniin-Yzgerv (Trelegy Ellipta) 100-62.5-25 MCG/INH Aerosol Powder, breath [...] 06/25/2022 1:01 PM Patient: Sd Rehman MR#: [id number] : 1950 Age: 71 y.o. 2wk R TKA Pt stated some days she has shooting pain that goes away, stated her pain today is a 2/10on the pain scale. Pt was wearing her van hose and in a brace & in a wheelchair at the time of visit. Referring Physician: Vita Joshi APRN-CNP Insurance: Payor: MEDICARE ANTH HMO OR PPO / Plan: MEDICARE [place]ates HMO OR PPO / Product Type: *NoProduct [...] mouth 2 times daily. 60 tablet 1 Xlxwchjmvoa-Lyzsghgqz-Vybngo (Trelegy Ellipta) 100-62.5-25 MCG/INH Aerosol Powder, breath [...] 2 times daily., Disp: 60 tablet, Rfl:1 Yqyvbwxqryz-Xlbtfjhdz-Hdjjjj (Trelegy Ellipta) 100-62.5-25 MCG/INH Aerosol Powder, breath [...] has No Known Allergies. documented in this encounterAdena [facility] System03-22-2023 Note* Nursing Notes - Erum Orozco RN - 06/11/2022 6:03 PM EDT Called to give report to facility nurse x3 and was forwarded to a , then the nurses station and no one picks up. All AVS info and discharge instructions were faxed to facility and given to EMS to provide to facility including narc scripts. Pts IV removed. [facility]03-22-2023 Miscellaneous Notes* Nursing Notes - Erum Orozco [...] Lucio - 06/11/2022 4:09 PM EDT Called Milena at this time for transport to [facility]. ETA 1715 Erum RN notified. * Plan [...] any exceptions noted in flowsheets. Pt c/o 5-08/30 pain after getting up to use the [...] determined in the discharge planning process with manager social and the multidisciplinary team. * Nursing Notes [...] 09, 2022 ATTENDING PHYSICIAN: Navin Clark M.D. BENCH EXAMINER: Jerilyn Baig CNP PREOPERATIVE DIAGNOSIS: 1. Aseptic [...] flexion space wasthen opened up with lamina fly tier. A posterior synovectomy was performed. The tibia [...] oscillating saw to remove it. There was rxgyplma-lz-irlnsp osteolysis on the medial sideof the patella [...] procedure) without the assistance of a skilled funeral director's assistant. A funeral director's assistant was medically necessary for positioning, retraction and [...] OPERATIVE/PROCEDURE NOTE Sd Rehman 71 y.o. female [id number] SURGEON Surgeon(s) and Role: * Navin Clark MD - Primary BENCH EXAMINER Jerilyn Baig ANESTHESIOLOGIST KEY OPERATOR: Micha Bailey APRN-KEY OPERATOR SURGICAL STAFF Lending Manager: Jo Downs, RN; Nicole Swanson, RN; Alon Duke, RN; Anabelle Vasquez, DEWAYNE Nurse Practitioner: Jerilyn Baig Scrub Person: Gordon Burnett RN; Ciara Boyd LPN; Dannielle Farnsworth RN Senior Biostatistician: Yoshi Hernandez LPN PROCEDURE PERFORMED Procedure(s) (LRB): [...] Implant Name Type Inv. Item Serial No. Ordnance Keeper Lot No. LRB No. Used Action PALACOS R & G BONE CEMENT HIGH-VISCOSITY WITH GENTAMICIN - [id number] PALACOS R & G BONE CEMENT HIGH-VISCOSITY WITH GENTAMICIN [id number] Right 1 Implanted PALACOS R & G BONE CEMENT HIGH-VISCOSITY WITH GENTAMICIN - [id number] PALACOS R & G BONE CEMENT HIGH-VISCOSITY WITH GENTAMICIN [id number] Right 1 Implanted PALACOS R & G BONE CEMENT HIGH-VISCOSITY WITH GENTAMICIN - [id number] PALACOS R & G BONE CEMENT HIGH-VISCOSITY WITH GENTAMICIN [id number] Right 1 Implanted ATTUNE knee system revision tibial base rotating platform size 2 cemented [employer] [id number] Right 1 Implanted Attune knee system revision tibial sleeve porocoat partially coated 29mm [employer] [id number] Right 1 Implanted Attune Knee System revision Pressfit stem 12mm x 60mm [employer] [id number] Right 1 Implanted Attune Knee system revision Pressfit Stem 10mm x 60mm [employer] [id number] Right 1 Implanted Attune knee system Revision CRS Femoral size 3 Right Cemented [employer] [id number] Right 1Implanted Attune Patella Medialized Dome 35mm Cemented AOX [employer] [id number] Right 1 Implanted Attune Knee system Revision Distal femoral AUgment size 3 4mm cemented [employer] [id number] Right 1 Implanted Attune knee system revision Distal femoral augment size 3 4mm Cemented [employer] [id number] Right 1 Implanted Attune knee system revision offset stem adaptor 4mm [employer] [id number] Right 1 Implanted Moldable demineralized fibers [facility] Right 1 Implanted Attune Knee system Revision CRS Rotating Platform Insert size 3 16mm AOX [employer] [id number] Right 1 Implanted SPECIMENS ID Type Source [...] surgery. Patient requesting to use [facility] upon discharge. 05/15/22 3613 Information Source Information Source patient Information Source Name Sd Rehman Contact Information Svp Digital Ad Sales/SW Added to Care Team Yes This Boiler Cleaner is Primary [employer]/SW Yes [employer] Name Angelina Rick RN Case Manager's Living [...] needs at this time. documented in this encounterAdena Health System03-22-2023 Note* Nursing Notes - KO Lucio - 06/11/2022 5:20 PM EDT [facility] arrives at this time. [facility]03-[facility] History of Present illness Narrative* Augustina Mayer RN - 06/11/2022 4:45 PM EDT HENS completed, negative COVID test and updated referral information faxed to [facility]. * Augustina Mayer RN - 06/11/2022 4:21 PM EDT Gordon at [facility] updated with ETA for transport. Daughter, Jacy, called to update with time oftransport. Patient updated with time of transport, also updated that post-op appointment was changed from 3 weeks to 2 weeks. * Augustina Mayer RN - 06/11/2022 3:44 PM EDT Update received from Gordon from [facility] that patient has been approved and can come today. Informed that transport will need to be set up and will update when we have a time arranged. Patient updated and questions answered. Patient requests that her daughter, Jacy, be called with anupdate. Daughter updated, will inform of transport time when arranged. Dr. Henderson updated regarding approval for SNF. * Robyn lAmazan OT - 06/11/2022 3:02 PM EDT 06/11/22 [...] pack donned upon exit * Semaj Pierce, ENGINE LATHE SET UP OPERATOR - 06/11/2022 10:55 AM EDT 06/11/22 1004 [...] BSC to walker with Rajan x1 and BRIDGES SUPERVISOR assisting pt with pericare andlower body dressing. [...] Supine to Sit, Rehab Eval Level of Edmunds: Supine/Sit minimum assist (75% patients effort) Physical Assist/Nonphysical Assist: Supine/Sit 1 person assist Transfer Skill: Sit To Stand, Rehab Eval Edmunds (Sit-Stand Transfers) minimum assist (75% patient effort) Physical Assist/Nonphysical Assist: Sit/Stand 1 person + 1 person to manage equipment Weight-Bearing Restrictions: Sit/Stand nonweight-bearing Assistive Device For Transfer: Sit/Stand 2 wheeled walker Gait Skills, PT Eval Level of Edmunds: Gait minimum assist (75% patients effort) Physical Assist/Nonphysical Assist: Gait 2 person assist Weight-Bearing Restrictions: Gait nonweight-bearing Assistive Device For Transfer: Gait 2 wheeled walker Gait Distance (bed to BSC, BSC to chair) Gait Analysis, PT Eval Gait Pattern Used swing-to gait Stair Negotiation Edmunds Level: Stair Negotiation unable to assess Plan Plan for next visit Cont with protocol ex, gentle ROM 0-30 only, and mobility as able Maintain frequency yes * Augustina Mayer RN - 06/11/2022 10:50 AM EDT Spoke with Gordon at [facility] for an update regarding insurance authorization. She states that she has not yet heard back from [facility]. She will be calling at 11:30 to [...] post hospital: SEE SS NOTES * Semaj Pierce PTA - 06/10/2022 5:47 PM EDT 06/10/22 1716 Time In/Out Time In 6 Time Out 1731 Total Visit Time 15 [...] Ptthen compelted STS to FWW and this ENGINE LATHE SET UP OPERATOR and BRIDGES SUPERVISOR assisting pt with lower bidy dressing and [...] Supine to Sit, Rehab Eval Level of Edmunds: Supine/Sit minimum assist (75% patients effort) Physical Assist/Nonphysical Assist: Supine/Sit 1 person assist Transfer Skill: Sit To Stand, Rehab Eval Edmunds (Sit-Stand Transfers) minimum assist (75% patient effort) Physical Assist/Nonphysical Assist: Sit/Stand 1 person assist Weight-Bearing Restrictions: Sit/Stand nonweight-bearing Assistive Device For Transfer: Sit/Stand 2 wheeled walker Gait Skills, PT Eval Level of Edmunds: Gait minimum assist (75% patients effort) Physical Assist/Nonphysical Assist: Gait 2 person assist Weight-Bearing Restrictions: Gait nonweight-bearing Assistive Device For Transfer: Gait 2 wheeled walker Gait Distance (bed to BSC, BSC to bed) Gait Analysis, PT Eval Gait Pattern Used swing-to gait Stair Negotiation Edmunds Level: Stair Negotiation unable to assess Plan [...] Transfer Skill: Sit To Stand, Rehab Eval Edmunds (Sit-Stand Transfers) contact guard Physical Assist/Nonphysical Assist: Sit/Stand 2 person assist Weight-Bearing Restrictions: Sit/Stand nonweight-bearing Assistive Device For Transfer: Sit/Stand 2 wheeled walker Clinical Impression Today's Treatment Included Pt initially requesting to use the bathroom, provide instructed on sequencing for transfer to [place] completing with CGA-min assist x2. Pt complete pant management mod assist,jennifer area hygiene SBA. Pt instructed on doffing pants and donning underwear and shorts using director of physical security, patient complete sit to stand for jennifer [...] Henderson MD - 06/10/2022 4:11 PM EDT [facility] inpatient notes Admit Date: 06/09/2022 Date of Evaluation: 34:11 PM [facility] Rehab / Skilled bed LOS: 1 [...] %. O2 Sat (%): 95 % (06/10 155) O2 Device: room air (06/10 155) Intake and Output: Intake/Output Summary (Last 24 [...] shifts: I/O last 3 completed shifts: In: 2243 [P.O.:840; I.V.:1404] Out: 1954 [Urine:1775; Other:180] Daily [...] Use Authorization (EUA) for the qualitative detection [id number] nucleic acid. 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 She states [...] pt having difficulty with advancing L foot. BRIDGES SUPERVISOR placing BSC behind pt and pt then transfered to seated position on commode. Pt able to void and provide self pericare. Pt then completed STS with Rajan x2 and BRIDGES SUPERVISOR asissting pt with lower body dressing. Pt [...] Supine to Sit, Rehab Eval Level of Edmunds: Supine/Sit minimum assist (75% patients effort) Physical Assist/Nonphysical Assist: Supine/Sit 1 person assist Transfer Skill: Sit To Stand, Rehab Eval Edmunds (Sit-Stand Transfers) minimum assist (75% patient effort) Physical Assist/Nonphysical Assist: Sit/Stand 2 person assist Weight-Bearing Restrictions: Sit/Stand nonweight-bearing Assistive Device For Transfer: Sit/Stand 2 wheeled walker Gait Skills, PT Eval Level of Edmunds: Gait minimum assist (75% patients effort) Physical Assist/Nonphysical Assist: Gait 2 person assist Weight-Bearing Restrictions: Gait nonweight-bearing Assistive Device For Transfer: Gait 2 wheeled walker Gait Distance 5 feet Gait Analysis, PT Eval Gait Pattern Used swing-to gait Stair Negotiation Edmunds Level: Stair Negotiation unable to assess Plan Plan for next visit Cont with protocol ex, gentle ROM 0-30 only, and mobility as able Maintain frequency yes * Augustina Mayer RN - 06/10/2022 10:18 AM EDT Update received from Gordon at [facility]. She states that they can accept the patientwill start precert today. She will continue to update. Met with patient and daughter, Angela to update. SHAR Cha present during conversation, he recommends that patient transport with ambulance when discharging d/t weight bearing precautions and restrictions. * Augustina Mayer RN - 06/10/2022 9:15 AM EDT Spoke with staff at [facility], who state that referral has been received [...] she would like to go to [facility]. Patient will need a wheeled walker, explained that if patient goes to a SNF, this equipment will need to come from location of discharge, she verbalizes understanding and denies any equipment needs at this time. Nursing reports that the incision has been closed with jonah with hemovac in place, will request a 3 week follow up appointment. [place] to be removed at facility of discharge. Patient denies any other questions or needs at this time. Referral faxed to [facility]. Follow up appointment scheduled for 07/03/22 @ [...] Crawford, PT - 06/09/2022 7:06 PM EDT 06/09/22 [...] History: Procedure Laterality Date KNEE REPLACEMENT Bilateral 2007 left in 2006 -right 2009---Dr. Crain APPENDECTOMY [...] complains of pain/discomfort Pain Location knee, right (06/30) Cognitive Status Examination Orientation Status (Cognition) oriented [...] Supine to Sit, Rehab Eval Level of Edmunds: Supine/Sit contact guard Transfer Skill: Sit To Stand, Rehab Eval Edmunds (Sit-Stand Transfers) minimum assist (75% patient effort) Weight-Bearing Restrictions: Sit/Stand nonweight-bearing Assistive Device For Transfer: Sit/Stand 2 wheeled walker Gait Skills, PT Eval Level of Edmunds: Gait minimum assist (75% patients effort) Physical [...] rehab prior to discharge home, and pts candido diallo in agreement. Pts brace appears to be [...] NWB RLE. Therapist Information [place] # [id number] PT Goals: 1. Patient will perform all [...] TKA Surgical Procedure right knee revision, per OVEN LABORER has a tibial fracture Past Surgical History [...] Available straight cane;axillary crutches;shower chair;hand held shower hose;director of physical security;sock-aid;long-handled shoe horn (high rise toilet) Cognitive Status [...] Sit to Stand, Rehab Eval Level of Edmunds: Sit/Stand contact guard Physical Assist/Nonphysical Assist: Sit/Stand 1 person assist Weight-Bearing Restrictions: Sit/Stand nonweight-bearing Assistive Device for Transfer: Sit/Stand wheeled walker Upper Body Dressing Level of Edmunds independent Physical Assist/Nonphysical Assist set-up required (in sitting) Lower Body Dressing Level of Edmunds maximum assist (25% patients effort) Physical Assist/Nonphysical [...] to thread over right LE and to puller machine bilateral hips due to NWB and patient [...] hygiene training Therapist Information License # [id number] 1. Pt will complete LB dressing mod [...] was originally planning to return [facility] with [facility], with these new developments they do [...] making a referral. Daughter, Angela, provides number ([phone]). She states that she will be staying [...] 9.6 oz) 01/02/22 104.3 kg (230 lb) [place] body weight: 47.8 kg (105 lb 6.1 [...] and cardiology pending. Thanks documented in this [facility]03-22-2023 Hospital course Narrative* Perry Henderson MD - 06/11/2022 4:21 PM EDT Images from the original note were not included. Discharge Summary Name: Sd Rehman Age: 71 y.o. Birthday: 1950 Admit Date: 06/09/2022 10:20 AM Discharge Date: 06/11/2022 Discharge Time: 06/11/2022 Discharge Unit: [facility] Inpatient Rehab unit Unit Length of Stay: LOS: 2 days Admission Information Admitting Physician: Navin Clark MD Discharge Information Discharge Physician: Perry Henderson MD Problem List Active Hospital Problems Diagnosis Benign hypertension Mixed hyperlipidemia Idiopathic chronic gout of multiple sites without tophus care home (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 non-steroidal anti-inflammatories (nsaid) Stage [...] fibrillation COPD admitted to [facility] for elective right knee revision Dr. Clark June 09. After this surgery patient complains of no chest pain or shortness of breath no palpitations no abdominal pain no nausea, vital signs and labs monitored, patient worked with physical therapy , determination was made that patient wouldbenefit from skilled nurse [facility]. Patient will be discharge to [facility] nurse [facility] June 11 the follow-up primary care [...] inhaler Inhale 1 puff daily. Generic drug: omegrbglxqw-vgilhpprr-Ncbdka STOP taking these medications acetaminophen 650 MG tab ER Commonly known as: TYLENOL Replaced by: Acetaminophen 325 MG tablet Cholecalciferol 25 MCG (1000 UT) CAPS Notes to patient: May resume taking 06/23/2022. Meloxicam 15 MG TABS Commonly known as: MOBIC traMADol 50 MG TABS Commonly known as: ULTRAM Follow-up: Other [facility] [address] [facility] [address] [facility] Patrick Abarca, DO [address] [facility] [address] [facility] [address] Follow up in 1 week(s) Navin Clark MD [address] [facility] [address] Follow up in 3 week(s) Upcoming Appointments (up to five)-Some appointments for Medical Center outpatient clinics or diagnostic testing locations are not displayed below Provider Department Dept Phone 06/25/2022 1:00 PM Jerilyn Baig [facility] [phone] Total coordination of discharge care taking greater that 35 minutes documented in this encounterAdena Health System03-22-2023 Note* Nursing Notes - KO Lucio - 06/11/2022 4:09 PM EDT Called [facility] at this time for transport to [facility]. ELVIS 171Sharon Danielson RN notified. [facility]03-22-[facility] Note* Plan of Care - Erum Orozco [...] 06/09/2022 7:08 PM Outcome: Adequate for Discharge [facility]03-22-2023 Note* Nursing Notes - Carley Miller RN - 06/11/2022 4:31 AM EDT Pt assessment remains unchanged with any exceptions noted in flowsheets. Pt c/o 5-6/10 pain after getting up to use the BSC. Medication given- see MAR. Ice pack changed and applied to R. Knee. Foot pumps on. TROM in place. Denies any further needs at this time. Call light within reach. [facility]03-22-2023 Note* Nursing Notes - Carley Miller RN - 06/11/2022 2:50 AM EDT Pt assessment remains unchanged with any exceptions noted in flowsheets. Pt is resting in bed with CPAP on. Ice pack changed and applied to R. Knee. Foot pumps on. Denies any pain or needs at this time. Call light within reach. [facility]03-21-2023 Note* Nursing Notes - Carley Miller RN - 06/10/2022 9:43 PM EDT Pt assessment complete. POC reviewed with pt. Ice pack changed and applied to R. Knee. Foot pumps on. TROM in place. CPAP on. Denies any pain or needs at this time. Bed alarm set. Call light within reach. [facility]03-21-2023 Note* Therapy Note - Elena Langley RRT - 06/10/2022 7:38 PM EDT Paper signed for pt to use home CPAP [facility]03-21-2023 Note* Nursing Notes - Prerna Holden RN - 06/10/2022 1:05 PM EDT Assessment is complete and remains unchanged from previous at this time with any exceptions noted in the flowsheet. Patient denies further needs and is left with call light and personals in reach. [facility]03-21-2023 Hospital Discharge instructions* Discharge Instructions* Prerna Holden [...] your recovery is progressing at home. CONTACT REAL ESTATE SALES ASSOCIATE FOR FURTHER INSTRUCTION ONCE POST-OP ELIQUIS IS [...] - 06/10/2022 9:45 AM EDT Contact Office ([phone]) if: > Total Knee ROM < 90 [...] 10-14 days after you surgery at the [facility] facility. Your surgery day was 06/09/2022. [...] in your TROM brace. documented in this encounterSt. [facility] Center[facility]03-21-2023 Note* Certification - Navin Clark MD - 06/10/2022 6:40 AM EDT I certify that this patient requires inpatient services at this time. Patient is having a Medicare Inpatient Only procedure. Plans for post hospitalization care will be determined in the discharge planning process with manager social and the multidisciplinary team. [employer] Work Phone: 1([phone]) 737-723003-21-2023 Note* Nursing Notes - Carley Miller RN - 06/10/2022 4:45 AM EDT Pt assessment remains unchanged with any exceptions noted in flowsheets. Ice pack changed and applied to R. Knee. Foot pumps on. TROM in place. Denies any pain or needs at this time. Call light within reach. [employer]03-20-2023 Note* Nursing Notes - Carley Miller RN - 06/09/2022 11:01 PM EDT Pt assessment remains unchanged with any exceptions noted in flowsheets. Pt states pain is 2/10 andtolerable. Ice pack changed and applied to R. Knee. TROM in place. Foot pumps on. Denies any needs at this time. Call light within reach. Bed alarm set. [facility]03-20-2023 Note* Nursing Notes - Carley Miller RN - 06/09/2022 10:00 PM EDT Pt refuses to wear CPAP d/t loud noise and unable to sleep. Pt on RA and O2 sat is 92%. [facility]03-[facility] Note* Nursing Notes - Carley Miller RN - 06/09/2022 8:17 PM EDT Pt assessment complete. POC reviewed with pt. Pt c/o / pain to R. Knee. Medication given- see MAR. TROM in place. Ice pack changed and applied to R. Knee. Foot pumps on. Bed alarm set. Denies any further needs at this time. Call light within reach. [facility]03-20-[facility] Note* Nursing Notes - Carley Miller RN [...] Henderson states this is okay with him. [facility]03-20-2023 Note* Op Note - Navin Clark MD - 06/09/2022 7:52 PM EDT DATE OF PROCEDURE: June 09, 2022 ATTENDING PHYSICIAN: Navin Clark M.D. BENCH EXAMINER: Jerilyn Baig CNP PREOPERATIVE DIAGNOSIS: 1. Aseptic [...] flexion space wasthen opened up with lamina fly tier. A posterior synovectomy was performed. The tibia [...] oscillating saw to remove it. There was kubqrxvc-pw-mhdekx osteolysis on the medial sideof the patella [...] procedure) without the assistance of a skilled funeral director's assistant. A funeral director's assistant was medically necessary for positioning, retraction and instrum entation. [employer]03-20-2023 Note* Nursing Notes - Prerna Holden RN [...] light and personals in reach. Will monitor. [facility]03-20-2023 Nurse Note* Martha Unger RN - 06/09/2022 4:58 PM EDT This nurse transfers patient from PACU to room 375. Patient's family is at bedside. Patient is [...] deg F, humidity 47% documented in this encounter[facility] Nurse Surgical operation note* Martha Unger RN - 06/09/2022 4:58 PM EDT This nurse transfers patient from PACU to room 3755. Patient's family is at bedside. Patient is alert,oriented and stable. Anesthesia SBAR and bedside report is given to Prerna BUCHANAN. Bed is locked, inlowest position and call light in reach of patient [facility]03-20-2023 Consult note* Perry Henderson MD - 06/09/2022 4:57 PM EDT History and Physical Examination 06/09/22 4:57 PM Chief Complaint: Right knee revision History of Present Illness: Patient is a 71 y.o. female presents for [facility] for right knee revision Dr. Clark [...] gout of multiple sites without tophus 06/09/2022 termite helper (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 non-steroidal anti-inflammatories (nsaid) 06/09/2022 [...] by mouth daily. 11/05/21 Yes Historical Provider Xmndpupzzve-Rviucvzpd-Znrfdh (Trelegy Ellipta) 100-62.5-25 MCG/INH Aerosol Powder, breath [...] capsule by mouth daily. 06/08/2022 at 900 Cnkegnsgjps-Bdmvbmyiv-Cbtabn (Trelegy Ellipta) 100-62.5-25 MCG/INH Aerosol Powder, breath [...] chronic gout of multiple sites without tophus termite helper (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 non-steroidal anti-inflammatories (nsaid) Stage 3a chronic kidney disease Hyponatremia Paroxysmal atrial fibrillation COPD mixed type Other mechanical complication of internal right knee prosthesis, initial encounter Active Problems: Benign hypertension Mixed hyperlipidemia Idiopathic chronic gout of multiple sites without tophus care home (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 non-steroidal anti-inflammatories (nsaid) Stage [...] OT, ST and SW. Perry Henderson MD [facility]03-20-2023 Consult note* Perry Henderson MD - 06/09/2022 4:57 PM EDT History and Physical Examination 06/09/22 4:57 PM Chief Complaint: Right knee revision History of Present Illness: Patient is a 71 y.o. female presents for [facility] for right knee revision Dr. Clark [...] gout of multiple sites without tophus 06/09/2022 termite helper (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 non-steroidal anti-inflammatories (nsaid) 06/09/2022 [...] by mouth daily. 11/05/21 Yes Historical Provider Utbqjkbpfbk-Zmjcwenzw-Huviwb (Trelegy Ellipta) 100-62.5-25 MCG/INH Aerosol Powder, breath [...] capsule by mouth daily. 06/08/2022 at 900 Rtyjqniztxi-Medeervud-Spiwaa (Trelegy Ellipta) 100-62.5-25 MCG/INH Aerosol Powder, breath [...] chronic gout of multiple sites without tophus termite helper (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 non-steroidal anti-inflammatories (nsaid) Stage 3a chronic kidney disease Hyponatremia Paroxysmal atrial fibrillation COPD mixed type Other mechanical complication of internal right knee prosthesis, initial encounter Active Problems: Benign hypertension Mixed hyperlipidemia Idiopathic chronic gout of multiple sites without tophus care home (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 non-steroidal anti-inflammatories (nsaid) Stage [...] collaboration with PT, OT, ST and SW. Antonio-Tawanda Henderson MD documented in this encounterAdena [facility] System03-20-2023 Nurse Surgical operation note* Alon Duke RN - 06/09/2022 4:34 PM EDT Patient transported to PACU with Micha CARBONE. Report given to Martha BUCHANAN at 1628H. [facility]03-20-2023 Note* Brief Op Note - Jerilyn Baig - 06/09/2022 4:28 PM EDT POST OPERATIVE/PROCEDURE NOTE Sd Wagnerpebbles 71 y.o. female [id number] SURGEON Surgeon(s) and Role: * Navin Clark MD - Primary BENCH EXAMINER Jerilyn Baig ANESTHESIOLOGIST KEY OPERATOR: Micha Bailey APRN-TONA SURGICAL STAFF Lending Manager: Jo Downs RN; Nicole Swanson, DEWAYNE; Alon Duke RN; Anabelle Vasquez RN Nurse Practitioner: Jerilyn Baig Scrub Person: Gordon Burnett RN; Ciara Boyd LPN; Dannielle Farnsworth RN Senior Biostatistician: Yoshi Hernandez LPN PROCEDURE PERFORMED Procedure(s) (LRB): [...] Implant Name Type Inv. Item Serial No. Ordnance Keeper Lot No. LRB No. Used Action PALACOS R & G BONE CEMENT HIGH-VISCOSITY WITH GENTAMICIN - [id number] PALACOS R & G BONE CEMENT HIGH-VISCOSITY WITH GENTAMICIN [id number] Right 1 Implanted PALACOS R & G BONE CEMENT HIGH-VISCOSITY WITH GENTAMICIN - [id number] PALACOS R & G BONE CEMENT HIGH-VISCOSITY WITH GENTAMICIN [id number] Right 1 Implanted PALACOS R & G BONE CEMENT HIGH-VISCOSITY WITH GENTAMICIN - [id number] PALACOS R & G BONE CEMENT HIGH-VISCOSITY WITH GENTAMICIN [id number] Right 1 Implanted ATTUNE knee system revision tibial base rotating platform size 2 cemented [employer] [id number] Right 1 Implanted Attune knee system revision tibial sleeve porocoat partially coated 29mm [employer] [id number] Right 1 Implanted Attune Knee System revision Pressfit stem 12mm x 60mm [employer] [id number] Right 1 Implanted Attune Knee system revision Pressfit Stem 10mm x 60mm [employer] [id number] Right 1 Implanted Attune knee system Revision CRS Femoral size 3 Right Cemented [employer] [id number] Right 1Implanted Attune Patella Medialized Dome 35mm Cemented AOX [employer] [id number] Right 1 Implanted Attune Knee system Revision Distal femoral AUgment size 3 4mm cemented [employer] [id number] Right 1 Implanted Attune knee system revision Distal femoral augment size 3 4mm Cemented [employer] [id number] Right 1 Implanted Attune knee system revision offset stem adaptor 4mm [employer] [id number] Right 1 Implanted Moldable demineralized fibers [facility] Right 1 Implanted Attune Knee system Revision CRS Rotating Platform Insert size 3 16mm AOX [employer] [id number] Right 1 Implanted SPECIMENS ID Type Source Tests Collected by Time Destination A : right knee incisional fluid (1-2) Surgical Wound SURGICAL WOUND FUNGUS CULTURE, ANAEROBE CULTURE, BACTERIAL CULTURE AND DIRECT SMEAR, LESION, TISSUE, DEVICE Navin Clark MD 06/09/2022 8705 B : right knee medial synovium (1-3) Surgical Wound SURGICAL WOUND FUNGUS CULTURE, ACID FAST CULTURE, ANAEROBE CULTURE, BACTERIAL CULTURE AND DIRECT SMEAR, LESION, TISSUE, DEVICE Navin Clark MD 06/09/2022 1400 C : right knee lateral synovium (1-3) Surgical Wound SURGICAL WOUND FUNGUS CULTURE, ACID FAST CULTURE, ANAEROBE CULTURE, BACTERIAL CULTURE AND DIRECT SMEAR, LESION, TISSUE, DEVICE Navin Clark MD 06/09/2022 1410 Jerilyn M Safia June 09, 2022 4:28 PM [facility]03-20-2023 Nurse Surgical operation note* Jo Downs RN - 06/09/2022 1:10 PM EDT OR3 temp 67 deg F, humidity 47% [facility]03-20-2023 Note* Certification - Perry Henderson MD - [...] be discharge to home with home health. [facility]02-23-2023 Note* Nursing Notes - Angelina Rick [...] assist after surgery. Patient requesting to use [facility] health upon discharge. 05/15/22 5915 Information Source Information Source patient Information Source Name Sd Campbellvivekpebbles Contact Information [employer]/SW Added to Care Team Yes This Boiler Cleaner is Primary [employer]/SW Yes [employer] Name Angelina Rick RN Case Manager's Living [...] other questions or needs at this time. [facility]02-10-2023 NoteHNO ID: [id number] Author: Dennis Lomas MD Service: ? Author Type: Physician Type: Progress Notes Filed: 05/10/2022 10:42 AM Note Text: NAME: Sd Rehman CLINIC NO.: [id number] DATE OF SERVICE: May 02, 2022 (Feliciano) [...] 90 mcg/actuation inhaler alb (more content not included)...[place] [id number] Instructions* Patient Instructions* Dennis Lomas MD - 05/02/2022 3:06 PM EST Proceed with knee replacement / repair as scheduled. RTC in week of july 2022 Repeat labs documented in this encounterWay[facility]02-10-[facility]23 History of Present illness Narrative* Dennis Lomas MD - 05/02/2022 2:56 PM EST Images from the original note were not included. NAME: Sd Rehman [facility] NO.: [id number] DATE OF SERVICE: May 02, 2022 (Feliciano) [...] mg capsule Take 60 mg by mouth. teddlxwxesz-bxdkdynuy-ihevyzgu (TRELEGY ELLIPTA) 100-62.5-25 mcg inhalation powder 1 [...] which included preparing to see the patient, emvz-jo-cqsf patient care, completing clinical documentation, obtaining and/or reviewing separately obtained history, performing a medically appropriate examination, counseling and educating the pat ient/family/caregiver, ordering medications, tests, or procedures, and independently interpreting results (not separately reported). Dennis Lomas MD, CPE Hematology and Oncology Services Provided at: [place], [place] CC: Odell Jones MD [address] [facility] [address] Olivia Fatima, OVEN LABORER [address] [facility] [address] Patrick Barba (ortho) documented in this encounterWayne Hospital12-09-2022 NoteHNO ID: [id number] Author: Dennis Lomas MD Service: ? Author Type: Physician Type: Progress Notes Filed: 03/11/2022 8:25 AM Note Text: NAME: Sd Rehman NO.: [id number] DATE OF SERVICE: February 28, 2022 (Feliciano) [...] 120 mg tablet Jamey (more content not included)...[facility]12-09-2022 Instructions* Patient Instructions* Dennis Lomas MD - 02/28/2022 3:52 PM EST Labs in April on return RTC same day documented in this encounterWayne Hospital12-09-2022 History of Present illness Narrative* Dennis Lomas MD - 02/28/2022 3:32 PM EST Images from the original note were not included. NAME: Sd Rehman [facility] NO.: [id number] DATE OF SERVICE: February 28, 2022 (Feliciano) [...] mg capsule Take 60 mg by mouth. dyknbmosdjb-krsztftmv-voxojtdq (TRELEGY ELLIPTA) 100-62.5-25 mcg inhalation powder 1 [...] which included preparing to see the patient, fuml-ue-bpmv patient care, completing clinical documentation, obtaining and/or reviewing separately obtained history, performing a medically appropriate examination, counseling and educating the pat ient/family/caregiver, ordering medications, tests, or procedures, and independently interpreting results (not separately reported). Dennis Lomas MD, CPE Hematology and Oncology Services Provided at: [place], [place] CC: Odell Jones MD [address] [place] [address] Olivia Fatima, OVEN LABORER [address] [place] [address] documented in this encounterWayne Hospital11-30-2022 History of Present illness Narrative* Estrella [...] 02/19/2022 2:22 PM Patient: Sd Rehman MR#: [id number] : 1950 Age: 71 y.o. Referring Physician: [...] DR Take 60 mg by mouth daily. Uvagicxirvz-Lcweqvngt-Xtdfry (Trelegy Ellipta) 100-62.5-25 MCG/INH Aerosol Powder, breath [...] she was evaluated by Dr. Burrows in [place] for vascular workup (I made a referral [...] - recently evaluated by Dr. Burrows in [place]. 3.) Obesity, increased BMI - weight goal [...] nasal MRSA screening, scheduling an appointment for [facility] [place] and the potential surgical date, and reviewing [...] mg by mouth daily., Disp: , Rfl: Bddvjzuljrs-Szwshlmrb-Ijghrl (Trelegy Ellipta) 100-62.5-25 MCG/INH Aerosol Powder, breath [...] Rfl: No Known Allergies documented in this [facility]10-13-2022 History of Present illness Narrative* Estrella [...] 01/02/2022 2:37 PM Patient: Sd Rehman MR#: [id number] : 1950 Age: 71 y.o. Referring Physician: Price Jaimes PA Insurance: Payor: MEDICARE ANTH HMO OR PPO [...] [x]cane, []bracing Are you followed by a interactive digital media specialist? [x] [] Name: [facility] cardiology Are you followed by pain management? [x] [] Name: Are you followed by any other specialists? [x] [] Name: Nephrology--Dr. Jones--[facility] Medications Prior to Visit Medication Sig [...] DR Take 60 mg by mouth daily. Gkcpzkogtif-Ulwpsuzdq-Aunylj (Trelegy Ellipta) 100-62.5-25 MCG/INH Aerosol Powder, breath [...] mg by mouth daily., Disp: , Rfl: Ttcwhlxcbev-Qisbatznq-Lgcfow (Trelegy Ellipta) 100-62.5-25 MCG/INH Aerosol Powder, breath [...] Rfl: No Known Allergies documented in this encounterAdena Health System09-24-2022 NoteEducation Materials Cardiovascular Hypertension, Adult Hypertension is [...] doctor. This is important. Medicines ? Take hxyw-yyr-kymccev and prescription medicines only as told by [...] pressure forces your h (more content not included)...[facility] [id number] NoteOPERATIVE NOTE OPERATION DATE: 12/03/2021 PRIMARY CARE [...] to the recovery room in good condition.[facility]Jhlhcvpy[facility]-91-0483 Evaluation note * Encounter Date Diagnosis Assessment [...] stenosis without neurogenic claudication (ICD-10 - M48.061) [employer] Other 07-07-2022 Evaluation note* Encounter Date Diagnosis [...] I have ordered a work-up for it. 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 Continue current dose of the allopurinol. [employer] Other 09-27-2021 Evaluation note* Encounter Date Diagnosis [...] Patient care instructions given in writting by [facility] At Home document [employer] Other Evaluation noteNo InformationNort [employer] Other Evaluation note* Diagnosis Pain in prosthetic joint, sequela- Primary [facility] encounter [facility]* Diagnosis Pain in prosthetic joint, sequela- Primary documented in this encounter [facility]* Diagnosis Bandemia- Primary Chronic obstructive pulmonary disease, unspecified COPD type (HCC) Macrocytosis without anemia Other specified diseases of blood and blood-forming organs documented in this encounter [facility]* Diagnosis Bandemia- Primary documented in this encounter [facility]* Diagnosis Acute postoperative pain of right knee- Primary Preop testing Preoperative examination, unspecified Other mechanical complication of internal right knee prosthesis, initial encounter COPD mixed type Chronic airway obstruction, not elsewhere classified Paroxysmal atrial fibrillation Atrial fibrillation Hyponatremia Hyposmolality and/or hyponatremia Stage 3a chronic kidney disease termite helper (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 non-steroidal anti-inflammatories (nsaid) Idiopathic chronic gout of multiple sites without tophus Chronic gouty arthropathy without mention of tophus (tophi) Mixed hyperlipidemia Benign hypertension Essential hypertension, benign Benign hypertension Essential hypertension, benign Mixed hyperlipidemia Idiopathic chronic gout of multiple sites without tophus Chronic gouty arthropathy without mention of tophus (tophi) care home (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 non-steroidal anti-inflammatories (nsaid) Stage 3a chronic kidney disease Hyponatremia Hyposmolality and/or hyponatremia Paroxysmal atrial fibrillation Atrial fibrillation COPD mixed type Chronic airway obstruction, not elsewhere classified Other mechanical complication of internal right knee prosthesis, initial encounter documented in this encounter [facility]* Diagnosis Hx of total knee arthroplasty, right- Primary documented in this encounter [facility]* Diagnosis Hx of total knee arthroplasty, right- Primary documented in this encounter [facility]* Diagnosis Hx of total knee arthroplasty, right- Primary documented in this encounter [facility]* Diagnosis Hx of total knee arthroplasty, right- Primary documented in this encounter [facility]* Diagnosis Onset Date Resolution Status CKD (chronic kidney disease) stage 3, GFR 30-59 ml/min acute Gout acute [id number] acute Iron deficiency acute Proteinuria acute Secondary hyperparathyroidism acute [facility] Work Phone: Evaluation note* Diagnosis Onset Date Resolution Status CKD (chronic kidney disease) stage 3, GFR 30-59 ml/min acute Gout acute Hyperlipidemia acute [id number] acute Proteinuria acute Secondary hyperparathyroidism acute [facility] Work Phone: Hisjdrp general Narrative - Reported* Type Description Date [...] History CELLULITIS X2 2017 Hospitalization History osteomyelitis [employer] Other history general Narrative - Reported* Type [...] History CELLULITIS X2 2017 Hospitalization History osteomyelitis [employer] Other history general Narrative - Reported* Type [...] History CELLULITIS X2 2017 Hospitalization History osteomyelitis [employer] Other InstructionsNot on filedocumented in this encounter Counts include 234 beds at the [facility] for referral (narrative)* Consultation (Routine) - Closed Specialty Diagnoses / Procedures Referred By Korin maldonado Referred To Contact Cardiovascular Medicine Diagnoses Pain in prosthetic joint, sequela Navin Clark MD [address] [place] [address] Jefry Bates MD [address] [place] [address] Referral ID Status Reason Start Date Expiration Date Visits Re quested Visits Authorized [id number] Closed 01/02/2022 01/27/2023 1 1 Scheduling Instructions . * Diagnostic X-Ray (Routine) - Pending Review Specialty Diagnoses / Procedures Referred By Korin maldonado Referred To Contact Diagnoses Pain in prosthetic joint, sequela Procedures XR BONE LENGTH STUDY Navin Clark MD [address] [place] [address] Referral ID Status Reason Start Date Expiration Date V isits Requested Visits Authorized [id number] Pending Review 12/27/2021 01/21/2023 1 1 * Diagnostic X-Ray (Routine) - Pending Review Specialty Diagnoses / Procedures Referred By Korin maldonado Referred To Contact Diagnoses Pain in prosthetic joint, sequela Procedures XR KNEE RIGHT 3 VIEWS Navin Clark MD [address] [place] [address] Referral ID Status Reason Start Date Expiration Date V isits Requested Visits Authorized [id number] Pending Review 12/27/2021 01/21/2023 1 1 [facility]* Auth/Cert Specialty Diagnoses / Procedures Referred By Korin maldonado Referred To Contact Diagnoses Other mechanical complication of internal right knee prosthesis, initial encounter Other mechanical complication of internal right knee prosthesis, initial encounter [T84.982A] Procedures GA REVISE KNEE JOINT REPLACE,ALL PARTS REVISION ARTHROPLASTY KNEE Navin Clark MD [address] [place] [address] Referral ID Status Reason Start Date Expiration Date Visits Re quested Visits Authorized [id number] 03/12/2022 1 1 [facility] Summary Purpose Family History No Family History Records Found Relationship Condition Age at Onset Recorded Date/T alexei father Unknown Malignant neoplasm Unknown Not Specified Unknown Heart disease Unknown Hypertension Unknown sister Hypertension Unknown History of stroke Unknown Relationship Condition Age at Onset Recorded Date/T alexei father Unknown Malignant neoplasm Unknown mother Unknown Heart disease Unknown Hypertension Unknown sister Hypertension Unknown History of stroke Unknown Advance Directives No Advanced Directives Records FoundDocuments on File Type Date Recorded Patient Deployment Manager Expl anation Advance Directives/Living Will 06/09/2022 10:21 AM Latest Code Status on File Code Status Date Activated Date Inactivated Comments Full Code 06/09/2022 4:37 PM Documents on File Type Date Recorded Patient Deployment Manager Expl anation Advance Directives/Living Will 06/09/2022 10:21 AM LIVING WILL Documents on File Type Date Recorded Patient Deployment Manager Expl anation Advance Directives/Living Will 06/09/2022 [...] XR KNEE RIGHT 3 VIEWS Jerilyn Baig [address] [place] [address] Referral ID Status Reason Start Date Expiration Date V isits Requested Visits Authorized [id number] New Request 06/13/2022 07/08/2023 1 1 Specialty Diagnoses / Procedures Referred By Korin maldonado Referred To Contact Physical Therapy Diagnoses Acute postoperative pain of right knee Jerilyn Baig [address] [place] [address] Referral ID Status Reason Start Date Expiration Date V isits Requested Visits Authorized [id number] New Request 06/09/2022 07/04/2023 1 1 Scheduling Instructions . Specialty Diagnoses / Procedures Referred By Korin t Referred To Contact Diagnoses Pain in prosthetic joint, sequela Procedures XR KNEE RIGHT 2 VIEWS XR KNEE RIGHT 3 VIEWS Navin Clark MD [address] [place] [address] Referral ID Status Reason Start Date Expiration Date V isits Requested Visits Authorized [id number] New Request 02/07/2022 03/04/2023 1 1 Chief Complaint and Reason for Visit Chief Complaint RENAL F/U Reason for Visit CKD (chronic kidney disease) stage 3, GFR 30-59 ml/min Gout [id number] Iron deficiency Proteinuria Secondary hyperparathyroidism Chief Complaint RENAL F/U Unknown Reason for Visit CKD (chronic kidney disease) stage 3, GFR 30-59 ml/min Gout Hyperlipidemia [id number] Proteinuria Secondary hyperparathyroidism Additional Source Comments INFORMATION SOURCE (unrecogn ized section and content) DATE CREATED AUTHOR 09/16/[address] [facility] DATE CREATED AUTHOR AUTHOR'S ORGANIZ ATION 10/16/2019 [facility] DATE CREATED AUTHOR AUTHOR'S ORGANIZ ATION 12/28/2021 [facility] DATE CREATED AUTHOR AUTHOR'S ORGANIZ ATION 03/14/2022 [facility] DATE CREATED AUTHOR AUTHOR'S ORGANIZ ATION 05/11/2022 [facility] DATE CREATED AUTHOR AUTHOR'S ORGANIZ ATION 06/04/2022 [facility] [place] [facility] DATE CREATED AUTHOR AUTHOR'S ORGANIZ ATION 07/24/2023 [facility] DATE CREATED AUTHOR AUTHOR'S ORGANIZ ATION 08/25/2023 [facility] DATE CREATED AUTHOR AUTHOR'S ORGANIZ ATION 09/14/2023 [facility] DATE CREATED AUTHOR AUTHOR'S ORGANIZ ATION 09/21/2023 [facility] DATE CREATED AUTHOR AUTHOR'S ORGANIZ ATION 09/25/2023 [facility] DATE CREATED AUTHOR AUTHOR'S ORGANIZ ATION 10/26/2023 [facility] REASON FOR VISIT (unrecogniz ed section and content) Specialty Diagnoses / Procedures Referred By Contac t Referred To Contact Diagnoses Pain in prosthetic joint, sequela Procedures XR BONE LENGTH STUDY Navin Clark MD [address] [place] [address] Referral ID Status Reason Start Date Expiration Date V isits Requested Visits Authorized [id number] Pending Review 12/27/2021 01/21/2023 1 1 Reason Comments Pain New Patient Reason Comments Pain Reason Comments Consult Specialty Diagnoses / Procedures Referred By Contac t Referred To Contact Nuclear Medicine Diagnoses Hx of total knee arthroplasty, right Abnormal laboratory test result Pain in prosthetic joint, subsequent encounter Procedures NUC WBC STUDY GA ABSCESS IMAGING, WHOLE BODY Vita Joshi, DOLLY DRIVER-OVEN LABORER [address] [place] [address] [facility] Nuclear Medicine [address] [place] [address] Referral ID Status Reason Start Date Expiration Date Visits Re quested Visits Authorized [id number] Closed 02/28/2022 03/25/2023 2 2 Reason Comments Bandemia Reason Comments Follow-up Reason Comments Follow-up Specialty Diagnoses / Procedures Referred By Contac t Referred To Contact Diagnoses Hx of total knee arthroplasty, right Procedures XR KNEE RIGHT 3 VIEWS Navin Clark MD [address] [place] [id number] Referral ID Status Reason Start Date Expiration Date V isits Requested Visits Authorized [id number] New Request 08/26/2022 09/20/2023 1 1 Reason Comments Post Op Visit Condition Update Referral ID Status Reason Start Date Expiration Date V isits Requested Visits Authorized [id number] New Request 09/30/2022 10/25/2023 1 1 Reason Onset Date Comments Med Refill 06/08/2023 Specialty Diagnoses / Procedures Referred By Contac t Referred To Contact Diagnoses Hx of total knee arthroplasty, right Procedures XR KNEE RIGHT 3 VIEWS Vita Joshi, DOLLY DRIVER-OVEN LABORER [address] [place] [id number] Referral ID Status Reason Start Date Expiration Date V isits Requested Visits Authorized [id number] New Request 07/14/2023 08/07/2024 1 1 Care Teams (unrecognized sec tion and content) Desk Manager Relationship Specialty Start Date End Date Patrick Odom DO [address] [place] [address] [place] [address] PCP - General Family Medicine 01/02/22 Desk Manager Relationship Specialty Start Date End Date Patrick Odom DO [address] [place] [address] [place] [address] PCP - General Family Medicine 01/02/22 Desk Manager Relationship Specialty Start Date End Date Patrick Odom DO [address] [place] [address] [place] [address] PCP - General Family Medicine 01/02/22 Desk Manager Relationship Specialty Start Date End [place] [address] PCP - General Family Medicine 02/25/22 Desk Manager Relationship Specialty Start Date End Date [place] [address] PCP - General Family Medicine 02/25/22 Desk Manager Relationship Specialty Start Date End Date Patrick Odom DO [address] [place] [address] [place] [address] PCP - General Family Medicine 01/02/22 Desk Manager Relationship Specialty Start Date End Date Olivia [place] [address] PCP - General Family Medicine 02/25/22 Desk Manager Relationship Specialty Start Date End Date Patrick Odom DO [address] [place] [address] [place] [address] PCP - General Family Medicine 01/02/22 Desk Manager Relationship Specialty Start Date End Date Patrick Odom DO [address] [place] [address] [place] [address] PCP - General Family Medicine 01/02/22 Desk Manager Relationship Specialty Start Date End Date Patrick Odom DO [address] [place] [place] [address] [place] [address] PCP - General Family Medicine 01/02/22 Desk Manager Relationship Specialty Start Date End Date Patrick Odom DO [address] [place] [place] [address] [place] [address] PCP - General Family Medicine 01/02/22 Desk Manager Relationship Specialty Start Date End Date Patrick Odom DO [address] [place] [place] [address] [place] [address] PCP - General Family Medicine 01/02/22 Desk Manager Relationship Specialty Start Date End Date BehzadsanjanaPatrick DO [address] [place] [address] [place] [address] PCP - General Family Medicine 01/02/22 Desk Manager Relationship Specialty Start Date End Date Behzadsanjana Patrick DO [place] [address] [place] [address] PCP - General Family Medicine 06/13/16 Desk Manager Relationship Specialty Start Date End Date Patrick Odom DO [address] [place] [address] PCP - General Family Medicine 01/02/22 Desk Manager Relationship Specialty Start Date End Date Patrick Odom DO [address] [place] [address] PCP - General Family Medicine 01/02/22 Team Status: Active Member Role Status Dates Patrick Odom DO Primary Care Provider Active Team Status: Inactive Member Role Status Dates Patrick Odom DO Primary Care Provider Active Start: August 20, 2023 End: August 20, 2023 Odell Jones MD Attending Provider Active Start : August 20, 2023 End: August 20, 2023 Team Status: Inactive Member Role Status Dates Patrick Odom DO Attending Provider Active St art: September 15, 2023 End: September 15, 2023 Source Comments (unrecognize d section and content) In the event this informatio n is protected by the Federal Confidentiality of Alcohol and Drug Abuse Patient Records regulations: The Federal rules restrict any use of the information to criminally investigate or prosecute any alcohol or drug abuse patient.[facility] the event this information is protected by the Federal Confidentiality of Alcohol and Drug Abuse Patient Records regulations: The Federal rules restrict any use of the information to criminally investigate or prosecute any alcohol or drug abuse patient.[facility] the event this information is protected by the Federal Confidentiality of Alcohol and Drug Abuse Patient Records regulations: The Federal rules restrict any use of the information to criminally investigate or prosecute any alcohol or drug abuse patient.[facility] Scheduled Active and Recently Administ ered [...] Prerna Holden RN)2144 (Given - Provider: Carley Miller, RN) 0858 (Given - Provider: Erum Orozco, RN) Atorvastatin (LIPITOR) tablet 20 mg 20 [...] Holden RN) 0832 (Given - Provider: Prerna Holden, RN)1749 (Given - Provider: Prerna Holden, RN) [...] or heart rate less than 55 bpm 1814 (Given - Provider: Prerna Holden RN) 0831 (Given - Provider: Prerna Holden RN)174 (Given - Provider: Prerna Holden RN) 0857 (Given - Provider: Erum Orozco RN)1700 (Canceled Entry - Provider: System Discharge - Comment: Automatically canceled at discontinue of medication order) Docusate (COLACE) capsule 100 mg 100 mg, Oral, 2 TIMES DAILY, First dose on Thu06/09/22 at 1730, Until Discontinued, Post-op/Post-Proc 1814 (Given - Provider: Prerna Holden RN) 0831 (Given - Provider: Prerna Holden RN)174 (Given - Provider: Prerna Holden RN) 0858 [...] enteric coating. 2016 (Given - Provider: Carley Miller RN) 2142 (Given - Provider: Carley Miller RN) faMOTIdine (PEPCID) tablet 20 mg 20 mg, Oral, 2 TIMES DAILY, First dose on Thu06/09/22 at 1700, Until Discontinued 1814 (Given - Provider: Prerna Holden RN) 0831 (Given - Provider: Prerna Holden RN)174 (Given - Provider: Prerna Holden RN) 0858 [...] RN)1342 ($$New Bag$$ - Provider: Micha Bailey APRN-KEY OPERATOR)1817 (Rate/Dose Verify - Provider: Prerna Holden RN) 08 (Stopped - Provider: Prerna Holden RN) Sodium chloride 0.9% IV solution (CANCELED) Intravenous, at 100 mL/hr, CONTINUOUS, Starting on Thu06/09/22 at 1730, Until Thu06/10/22 at 0730, Convert IV to PRN adapter if adequate oral intake, Post-op/Post-Proc 1722 (Rate/Dose Verify - Provider: Prerna Holden RN) 08 (Stopped - Provider: Prerna Holden RN) PRN [...] 2 g, Intravenous, Administer over 30 Minutes, CAMPAIGN MARKETING SPECIALIST TO PROCEDURE, 1 dose, Starting on Thu06/09/22 at 1056, Until Discontinued, Other, Pre-operative antibiotic, For 15 Minutes, Pre-op/Pre-Proc 1347 (Given - Provider: Micha Bailey, DOLLY DRIVER-KEY OPERATOR) HYDROmorphone (DILAUDID) injection 0.5 mg 0.5 mg, [...] Provider: Navin Clark MD - Comment: pulsavac loft worker) senna-docusate (SENOKOT-S) 8.6-50 MG per tablet 2 [...] Oral, ONCE DIRECTED, 1 dose, Starting on 3/20/23 at 1056, Until Thu06/11/22 at 2025, See [...] BE BASED ON THE PRIMARY CLINICAL RECORDS. [employer] provides no warranty or guarantee of the accuracy or completeness of information in this document.
[2023-10-26 13:20] LABS: Basophils Absolute Auto 0.1 10^3/uL (0.0-0.1); Basophils Percent Auto 0.7 % (0.2-2.0); Eosinophils Absolute Auto 0.2 10^3/uL (0.0-0.7); Eosinophils Percent Auto 1.8 % (0.9-7.0); Hematocrit 41.7 % (36.0-48.0); Hemoglobin 13.8 g/dL (12.0-16.0); Immature Granulocytes Abs Auto 0.05 10^3/uL (0.00-0.03); Immature Granulocytes Pct Auto 0.4 % (0.0-0.5); Lymphocytes Absolute Auto 2.4 10^3/uL (1.2-3.8); Lymphocytes Percent Auto 21.6 % (20.5-60.0); Mean Corpuscular HGB Conc 33.1 g/dL (29.9-35.2); Mean Corpuscular Hemoglobin 33.3 pg (26.7-34.0); Mean Corpuscular Volume 100.7 fL (81.0-99.0); Mean Platelet Volume 9.5 fL (9.5-13.5); Monocytes Absolute Auto 0.9 10^3/uL (0.3-0.8); Neutrophils Absolute Auto 7.6 10^3/uL (1.4-6.5); Neutrophils Percent Auto 67.5 % (43.0-75.0); Platelet Count 347 10^3/uL (150-450); Red Blood Count 4.14 10^6/uL (4.20-5.40); White Blood Count 11.3 10^3/uL (4.0-11.0)
[2023-10-26 13:48] LABS: INR 1.03; Prothrombin Time 10.9 sec (9.0-11.6)
[2023-10-26 14:03] LABS: Alanine Aminotransferase 20 U/L (14-59); Albumin Globulin Ratio 0.8; Albumin Level 2.9 g/dL (3.4-5.0); Alkaline Phosphatase 122 U/L (46-116); Anion Gap 13.7; Aspartate Amino Transferase 12 U/L (15-37); BUN Creatinine Ratio 20.3; Bilirubin Direct 0.1 mg/dL (0.0-0.2); Bilirubin Total 0.4 mg/dL (0.2-1.0); Carbon Dioxide 24.4 mmol/L (21.0-32.0); Chloride 103 mmol/L (98-107); Estimated GFR (African America 40 (>=60); Estimated GFR (Non-African Ame 33 (>=60); Globulin 3.7 g/dL; Glucose 114 mg/dL (74-106); Potassium 4.1 mmol/L (3.5-5.1); Sodium 137 mmol/L (136-145); Total Protein 6.6 g/dL (6.4-8.2)
== END 2023-10-26 12:30 | disposition home or self-care (01) ==
LOC: PST 12:30
PROVIDERS: PCP Family Medicine; Visit Provider Surgery
DX: Z01.810 Encounter for preprocedural cardiovascular examination (principal); Z01.812 Encounter for preprocedural laboratory examination; D24.1 Benign neoplasm of right breast
CPT/HCPCS: 71046; 80048; 80076; 85025; 85610; 85730; 93005

== ENCOUNTER 2023-10-28 07:05 | Day surgery (SDC) | payer MEDICARE, SELFPAY ==
[2023-10-26 13:41] VITALS: BP 155/84; PULSE 96; TEMP 36.5; O2SAT 95; BMI 42.1
[2023-10-28] VITALS (9 sets, daily range): BP systolic 135–171; BP diastolic 72–91; PULSE 54–75; TEMP 35.8–36.4; O2SAT 95–100; BMI 42.0
--- NOTE | 2023-10-28 | US_ITS ---
[address] [address] Patient Name: [place] REHMAN MRN: [id number] date: 1950 Sex: F Assigned Patient Location: SURGOUT [facility] Accession/Order Number: [id number] Exam Date: 10/28/2023 08:05 Report Date: 10/30/2023 09:18 At the request of: JEFRY GARIBAY Procedure: US breast needle loc RT EXAM: US breast needle loc RT HISTORY: Excision of right breast intraductal papilloma COMPARISON: Ultrasound breast 09/15/2023, 09/08/2023 TECHNIQUE: After obtaining informed consent, ultrasound-guided wire localization was performed in the usual sterile manner. FINDINGS: Marker(s): Needle/wire localization of a 6 mm mass within the retroareolar right breast with adjacent biopsy marker clip. Medication: Buffered 1% Lidocaine with epinephrine administered locally. Complications: None. Pathology: Pending. US/US breast needle loc RT IMPRESSION: 1. Uneventful ultrasound-guided wire localization of retroareolar mass. Electronically authenticated by: TERESA AZUL Date: 10/30/2023 09:18
--- NOTE | 2023-10-28 | US_ITS ---
[address] [address] Patient Name: [place] REHMAN MRN: [id number] date: 1950 Sex: F Assigned Patient Location: SURGOUT Current Patient Location: Accession/Order Number: [id number] Exam Date: 10/28/2023 07:35 Report Date: 10/29/2023 07:31 At the request of: JEFRY GARIBAY Procedure: US surgical specimen RT EXAM: US surgical specimen RT HISTORY: Excision of right breast intraductal papilloma COMPARISON: None. TECHNIQUE: Ultrasound of a surgical mass FINDINGS: Specimen 1: The targeted mass and tip of the needle is observed Specimen 2: No definite mass is observed US/US surgical specimen RT IMPRESSION: Targeted mass and tip of the needle observed in specimen 1 Electronically authenticated by: SHAMA ANGELA Date: 10/29/2023 07:31
--- OUTSIDE RECORDS SUMMARY | 2023-10-28 07:09 | XMS_ITS | CCD ---
Author Organization [facility] Care Team Providers Care Parts Room Associate Name Role Phone PHYSICIAN, DEFAULT Unavailable Unavailable PHYSICIAN, DEFAULT Unavailable Unavailable Malina Lafleur Unavailable Odell Jones Unavailable Curtis Watkins Unavailable Jignesh He Attending Unavailable PATRICK ODOM Primary Care Unavailable Jignesh He Admitting Unavailable Jignesh He Attending Unavailable PATRICK ODOM Primary Care Unavailable Jignesh He Admitting Unavailable Furlong Patrick SANTA Primary Care Provider lAdens, Olivia R Primary Care Provider [phone] VITA JOSHI Referring Unavailable VITA JOSHI Attending Unavailable FURLONG, PATRICK Primary Care Unavailable VITA JOSHI Attending Unavailable BEHZADLONG, PATRICK Primary Care Unavailable VITA JOSHI Referring Unavailable VTIA JOSHI Attending Unavailable BEHZADLONG, PATRICK Primary Care [...] Consulting Unavailable KAREN, ODELL Admitting Unavailable KAREN, DOELL Consulting Unavailable KAREN, ODELL Attending Unavailable FURLONG, [...] Unavailable Furlong Patrick SANTA Primary Care Provider [phone] Furlo Patrick SANTA Primary Care Provider VITA [...] Care Unavailable Furlong, DO Patrick Attending Provider RUPINDER GIORDANO Attending Unavailable ALGHOTHANI, RUPINDER Attending [...] by mouth every 4 hours as needed. [id number] 200 actuat albuterol 0.09 mg/actuat metered dose [...] 2023 12:00am take 1 capsule by mo [facility] in the morning cholecalciferol, vitamin D3, [...] a day for 14 day(s) Nov, Active Rnmiwkklglz-Mbrantozu-Pngisc er (20 sources) Anticholinergic, Corticosteroid, beta2-Adrenergic Agonist Start: 08-20-2023 Orexswixuzf-Tfvhbjcul-Hvtlrw er (Trelegy Ellipta) 100-62.5-25 mcg blister with device Active 1 INH INHALATION Daily August 20, 2023 12:00am Start: 03-25-2022 take 1 puff(s) by mo [facility] once daily TRELEGY ELLIPTA 100-62.5-25 mcg blister with device INHALE 1 PUFF BY MOUTH ONCE EVERYDAY *RINSE MOUTH AFTER USE* 0 03/25/2022 Active take 1 puff(s) by in halation once daily Wtsbrrzplgv-Kikpeaaer-Uyiwaf (Trelegy Ellipta) 100-62.5-25 MCG/INH Aerosol Powder, breath [...] 1 tablet Orally Once a day Active poduduyg-ecyn-EU-calci um &mins (THERAGRAN-M) 9 mg iron-400 mcg tablet (1 source) Start: 3 cbroqgwp-cbsl-OW-c alcium &mins (THERAGRAN-M) 9 mg iron-400 mcg [...] by mouth once daily. 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] Onset: 12-09-2021 Episodic Other aftercare (1 source) [facility]DC (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 anticoagulants; Translations: [AERONAUTICAL ENGINEERING PROFESSOR CURRNT USE ANTICOAGULANTS] Onset: 11-25-2021 Episodic Other aftercare (11 sources) Patient encounter status; Translations: [FDC (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 non-steroidal anti-inflammatories (NSAID)] Onset: [...] Test Name Value Interpretation Reference Range Facility [facility] 09-15-2023 L Specimen: [id number] Received: 09/16/23 Status: KISHAN Elizalde Num: [id number] Spec Type: Surgical Subm Dr: Patrick Odom DO Tissues: A BREAST CORE NO CALCS (RT BREAST MASS) Procedures: HE/2, Gross/Micro L4, AE1-AE3, p63 Age/ Patient Sex Location Account Attending Physician Sd Rehman 73/F LABELL [id number] Patrick Odom DO SPEC NUM: [id number] RECD: 09/16/23 STATUS: [facility] RE NUM: [id number] DEDE: 09/15/23- SUBM DR: Patrick Odom DO [...] at gross: 09/16/2023 at 1650 ---- Specimen: [id number] Received: 09/16/23-1308 Status: KISHAN Elizalde Num: [id number] Spec Type: Surgical Subm Dr: Patrick Odom DO Tissues: A BREAST CORE NO CALCS (RT BREAST MASS) Procedures: HE/2, Gross/Micro L4, AE1-AE3, p63 ---- Patient: Sd Rehman [id number] (Continued) ---- Specimen: [id number] Received: 09/16/23 (Continued) Signed (signature on file) Trixie Washington MD 09/23/23 1457 ---- Specimen: [id number] Received: 09/16/23 Status: KISHAN Elizalde Num: [id number] Spec Type: Surgical Subm Dr: Patrick Odom DO Tissues: A BREAST CORE NO CALCS (RT BREAST MASS) Procedures: HE/2, Gross/Micro L4, AE1-AE3, p63 ---- Patient: Sd Rehman [id number] (Continued) ---- Specimen: [id number] Received: 09/16/23 (Continued) CPT Codes 88968 [id number] ---- ---- Specimen: [id number] Received: 09/16/23-2218 Status: KISHAN Elizalde Num: [id number] Spec Type: Surgical Subm Dr: Patrick Odom DO Tissues: A BREAST CORE NO CALCS (RT BREAST MASS) Procedures: HE/2, Gross/Micro L4, AE1-AE3, p63 ---- Patient: Sd Rehman [id number] (Continued) ---- Signed (signature on file) Trixie Washington MD 09/23/23 5694 Normal [facility] Surgical Pathologyon 024 Surgical Pathology Normal [facility] Comment on above: Result Comment: [facility] [address] [place] [address] Surgical Pathology Consultation Patient Name:SD REHMAN:1950 (Age: 73)Gender:FTaken:4Reported:4Physician(s):Guido King MD ([phone])Copy To: Rec. #:[id number]: #[id number] Final Pathologic Diagnosis 1. Ascending colon, polypectomy: [...] Out rg/09/14/2023mo Koenig MD Interpretation performed at [facility], [address] [place] [address], License number: [id number]. Clinical History Screening. Gross Description 1. Received in formalin labeled, SHERIE, ascending are 6 of pale childs 0.2 to 0.4 cm soft tissue bits. The specimen is filtered and entirely submitted in a single cassette. (1, ns, [id number], m8) SM 2. Received in formalin labeled, SHERIE, colon at 110 cm are 2 childs-manzo 0.1 and 0.2 cm soft tissue bits. The specimen is filtered and entirely submitted in a single cassette. (1, ns, [id number], m8) SM 3. Received in formalin labeled, SHERIE, 100 cm are two manzo-childs 0.1 and 0.3 cm soft tissue bits. The specimen is filtered and entirely submitted in a single cassette. (1, ns, [id number], m8) SM 4. Received in formalin labeled, SHERIE, 90 cm are 4 manzo-childs polypoid portions of tissue that range from 0.2 to 0.6 cm. The specimen is filtered and entirely submitted in a single cassette. (1, ns, [id number], m8) SM 5. Received in formalin labeled, SHERIE, 70 cm is a childs-manzo 0.2 cm soft tissue bit. The specimen is filtered and entirely submitted in a single cassette. (1, ns, [id number], m8) SM 6. Received in formalin labeled SHERIE, 65 cm are 2 pale childs-manzo soft tissue bits less than 0.1 and 0.3 cm in greatest dimension. The specimen is filtered and entirely submitted in a single cassette. (1, ns, [id number], m8) SM 7. Received in formalin labeled, SHERIE, 25 cm is a manzo-childs 0.3 cm soft tissue bit. The specimen is filtered and entirely submitted in a single cassette. (1, ns, [id number], m8) SM 8. Received in formalin labeled, SHERIE, 15 cm is a manzo-childs polypoid portion of tissue 0.5 cm in greatest dimension. The specimen is bisected and entirely submitted in a single cassette. (1, ns, [id number], m8) SM 9. Received in formalin labeled, SHERIE, rectum check are 3 manzo-childs polypoid portions of tissue 0.3-0.4 and 0.5 cm in greatest dimension. The surgical margins of the largest polyp are inked the specimen is entirely submitted in a single cassette. (1, ns, [id number], m8) [facility]/09/10/2023GP Specimen(s) Received 1: Ascending colon polyp x2 2: Colon polyp 110cm 3: Colon polyp 100 cm x2 4: Colon polyp 90 cm x3 5: Colon polyp 70 cm 6: Colon polyp 65 cm x2 7: Colon polyp 25 cm 8: Colon polyp 15 cm x2 9: Rectal polyp x3 Fee Codes(s): 1; 38616 2; 16527 3; 84618 4; 87489 5; 23950 6; 65944 7; 35495 8; 08470 9; 03318 HGB A1C (GLYCO-HGB)on 2023 Glucose [Mass/Vol] 120 mg/dL Normal [facility] Comment on above: Performed By: #### 2 4331-1, 3016-3, HA1C #### [facility] ([id number]) [address], [address] [place] [address] HbA1c (Bld) [Mass fraction] 5.8 % High 4.4-5.6 [facility] Comment on above: Result Comment: NOTE ADA Guidelines Result HgbA1c Normal : less than 5.7 % Prediabetes : 5.7 % to 6.4 % Diabetes : > 6.4 % Use with caution in patients with abnormal hemoglobin variants as the half-life of red blood cells and in vivo glycation rates are affected. Performed By: #### 2 4331-1, 3016-3, HA1C #### [facility] ([id number]) [address], [address] [place] [address] Lipid 1996 panelon Cholesterol [Mass/Vol] 150 mg/dL Normal 150-200 [facility] Comment on above: Performed By: #### 2 4331-1, 3016-3, HA1C #### [facility] ([id number]) [address], [address] [place] [address] Cholesterol in HDL [Mass/Vol] 45 mg/dL Normal >39 [facility] Comment on above: Result Comment: HDL <40 mg/dL - High Risk HDL > or = 40mg/dL- Desirable HDL >60 mg/dL - Negative Risk Performed By: #### 2 4331-1, 3015-3, HA1C #### [facility] ([id number]) [address] [address] Cholesterol in LDL [Mass/Vol] 68 mg/dL Normal <130 [facility] Comment on above: Result Comment: LDL <100 mg/dL - Desirable LDL >160 mg/dL - High Risk Performed By: #### 2 4331-1, 3015-3, HA1C #### [facility] ([id number]) [address], [address] [place] [address] Cholesterol in VLDL [Mass/Vol] 37 mg/dL High 0-30 [facility] Comment on above: Performed By: #### 2 4331-1, 3015-3, HA1C #### [facility] ([id number]) [address], [address] [place] [address] CHOLESTEROL:HDL 3.3 Normal 1.0-5.0 [facility] Comment on above: Performed By: #### 2 4331-1, 3015-3, HA1C #### [facility] ([id number]) [address], [address] [place] [address] Triglyceride [Mass/Vol] 183 mg/dL High 27-150 [facility] Comment on above: Performed By: #### 2 4331-1, 3015-3, HA1C #### [facility] ([id number]) [address], [address] [address] TSH Qnon 08-24-2023 TSH 1.10 uIU/mL Normal 0.49-4.67 [facility] Comment on above: Performed By: #### 2 4331-1, 3015-3, HA1C #### [facility] ([id number]) [address], [address] [place] [address] Erythrocyte distribution wid th Auto (RBC) [Ratio]on 08-20-2023 Erythrocyte distribution width (RBC) [Ratio] 15.0 % 11.0-15.0 [facility] Estimated glomerular filtrat ion rate (GFR) non- Americanon 08-20-2023 GFR/1.73 sq M.predicted among non-blacks MDRD (S/P/Bld) [Vol rate/Area] 29 mL/min/{1.73_m2} Low >=60 [facility] Hematocrit Auto (Bld) [Volum e fraction]on 08-20-2023 Hematocrit (Bld) [Volume fraction] 44.1 % 36.0-48.0 [facility] Hemoglobin [Mass/volume] in Bloodon 08-20-2023 Hemoglobin (Bld) [Mass/Vol] 14.2 g/dL 12.0-16.0 [facility] Iron binding capacity [Mass/ volume] in Serum or Plasmaon 08-20-2023 Iron binding capacity [Mass/Vol] 340.0 ug/dL 250.0-450.0 [facility] Iron saturation [Mass Fracti on] in Serum or Plasmaon 08-20-2023 Iron saturation [Mass fraction] 18.8 % [facility] Laboratory - Chemistry and C hemistry - challengeon 08-20-2023 Albumin [Mass/Vol] 3.5 g/dL 3.4-5.0 [facility] Calcium [Mass/Vol] 9.2 mg/dL 8.5-10.1 [facility] Chloride [Moles/Vol] 100 mmol/L 98-107 [facility] CO2 [Moles/Vol] 21.2 mmol/L 21.0-32.0 [facility] Creatinine [Mass/Vol] 1.75 mg/dL High 0.55-1.02 [facility] Ferritin [Mass/Vol] 94.0 ng/mL 8.0-252.0 [facility] GFR/1.73 sq M.predicted MDRD (S/P/Bld) [Vol rate/Area] 35 mL/min/{1.73_m2} Low >=60 [facility] Glucose [Mass/Vol] 107 mg/dL High 74-106 [facility] Iron [Mass/Vol] 64.0 ug/dL 50.0-170.0 [facility] Magnesium [Mass/Vol] 2.0 mg/dL 1.8-2.4 [facility] Potassium [Moles/Vol] 4.5 mmol/L 3.5-5.1 [facility] Sodium [Moles/Vol] 134 mmol/L Low 136-145 [facility] Urate [Mass/Vol] 5.0 mg/dL 2.6-6.0 [facility] Urea nitrogen [Mass/Vol] 30.0 mg/dL High 7.0-18.0 [facility] Urea nitrogen/Creatinine [Mass ratio] 17.1 mg/mg [facility] Bilirubin Ql (U) Negative NEGATIVE [facility] Glucose (U) [Mass/Vol] Negative NEGATIVE [facility] Ketones Ql (U) Negative NEGATIVE [facility] pH (U) 5.5 [pH] 5.0-9.0 [facility] Specific gravity (U) [Rel density] 1.010 1.005-1.025 [facility] Urobilinogen Qn (U) 0.2 {Favio'U}/dL 0.2-1.0 [facility] Laboratory - Specimen inform ationon 08-20-2023 Appearance (U) CLEAR CLEAR [facility] Color (U) LT. YELLOW YELLOW [facility] Laboratory - Urinalysison Leukocyte esterase Test strip Ql (U) Negative NEGATIVE [facility] Mucus Ql (Urine sed) NONE SEEN NONE SEEN [facility] Nitrite Ql (U) Negative NEGATIVE [facility] Protein (U) [Mass/Vol] 18.5 mg/dL High <=11.9 [facility] Protein Ql (U) Negative NEG/TRACE [facility] Leukocytes [#/volume] correc van for nucleated erythrocytes in Blood by Automated counon 08-20-2023 WBC corrected for nucl RBC Auto (Bld) [#/Vol] 13.5 10 3/uL High 4.0-11.0 [facility] MCH Auto (RBC) [Entitic mass ]on 08-20-2023 MCH (RBC) [Entitic mass] 32.2 pg 26.7-34.0 [facility] MCHC Auto (RBC) [Mass/Vol]on 08-20-2023 MCHC (RBC) [Mass/Vol] 32.2 g/dL 29.9-35.2 [facility] MCV Auto (RBC) [Entitic vol] on 08-20-2023 MCV (RBC) [Entitic vol] 100.0 fL High 81.0-99.0 [facility] No Panel Informationon 08-19 25-Hydroxy Vitamin D Total 24.8 ng/mL [facility] Comment on above: <20 ng/mL Vit D defi cient20-<30 ng/mL Vit D ayooipkprenb27-308 ng/mL Vit D sufficient>100 ng/mL Potential Toxicity Parathyroid Hormone (Intact) 104 pg/mL Abnormal 15-65 [facility] Comment on above: Performed at: [employer] [address] [id number] Director: Abdulaziz Honeycutt PhD, Phone: [phone] Phosphorus Level 3.1 mg/dL 2.6-4.7 [facility] Urine Bacteria NONE SEEN #/HPF NONE SEEN [facility] Urine Occult Blood Negative NEGATIVE [facility] Urine Other Casts NONE SEEN #/LPF NONE SEEN [facility] Urine Other Crystals None Seen #/HPF None Seen [facility] Urine Random Creatinine 41.92 mg/dL 20.00-300.00 [facility] Urine RBC NONE SEEN #/HPF 0-2 [facility] Urine Squamous Epithelial Cells NONE SEEN #/LPF NONE/RARE [facility] Urine WBC NONE SEEN #/HPF NONE SEEN [facility] Platelet mean volume Auto (B ld) [Entitic vol]on 08-20-2023 Platelet mean volume (Bld) [Entitic vol] 9.8 fL 9.5-13.5 [facility] Platelets Auto (Bld) [#/Vol] on 08-20-2023 Platelets (Bld) [#/Vol] 388 10 3/uL 150-450 [facility] RBC Auto (Bld) [#/Vol]on RBC (Bld) [#/Vol] 4.41 10 6/uL 4.20-5.40 [facility] Serum or plasma anion gap de terminationon 08-20-2023 Anion gap [Moles/Vol] 17.3 mmol/L [facility] Urine protein/creatinine rat ioon 08-20-2023 Protein/Creatinine (U) [Ratio] 0.44 [facility] Office Visiton 07-22-2023 Follow-up visit [id number] Sd Rehman 1950 Date Provider Department Center 07/22/2023 RUPINDER RAHSEED Family History Problem Relation Age of Onset Hypertension Mother Heart disease Mother Cancer Father Family Status - Relation Status Age at Mother Father Level of Service:13332 DE OFFICE/OUTPATIENT ESTABLISHED LOW MDM 20 MIN Normal [facility] Office Visiton 12-15-2022 Follow-up visit [id number] Sd Rehman 1950 F Date Provider Department Center 12/15/2022 RUPINDER RASHEED Family History Problem Relation Age of Onset Hypertension Mother Heart disease Mother Cancer Father Family Status - Relation Status Age at Mother Father Level of Service:04454 DE OFFICE/OUTPATIENT ESTABLISHED MOD MDM 30-39 MIN Normal [facility] Office Visiton 09-22-2022 Follow-up visit [id number] Sd Rehman 1950 F Date Provider Department Center 09/22/2022 RUPINDER RASHEED Family History Problem Relation Age of Onset Hypertension Mother Heart disease Mother Cancer Father Family Status - Relation Status Age at Mother Father Level of Service:58152 DE OFFICE/OUTPATIENT ESTABLISHED LOW MDM 20-29 MIN Normal [facility] CBC, EDIF, PLATELETon 2022 ABSOLUTE BASOPHIL COUNT 0.0 10*3/uL 0.0 - 0.2 10*3/uL [facility] Basophils/100 WBC (Bld) 0.1 % 0.0 - 2.0 % [facility] Differential cell count method Nom (Bld) AUTO DIFF % [facility] Eosinophils (Bld) [#/Vol] 0.0 10*3/uL 0.0 - 0.7 10*3/uL [facility] Eosinophils/100 WBC (Bld) 0.0 % 0.0 - 11.0 % [facility] Erythrocyte distribution width (RBC) [Ratio] 14.7 % High 11.5 - 14.5 % [facility] Hematocrit (Bld) [Volume fraction] 29.0 % Low 36.0 - 48.0 % [facility] Hemoglobin (Bld) [Mass/Vol] 9.5 g/dL Low [facility] Interpretation and review of laboratory results Abnormal [facility] Lymphocytes (Bld) [#/Vol] 0.9 10*3/uL Low 1.2 - 3.4 10*3/uL [facility] Lymphocytes/100 WBC (Bld) 5.1 % Low 20.0 - 55.0 % [facility] MCH (RBC) [Entitic mass] 31.1 pg 26.0 - 35.0 PG [facility] MCHC (RBC) [Mass/Vol] 32.7 g/dL [facility] MCV (RBC) [Entitic vol] 95.0 fL [facility] Monocytes (Bld) [#/Vol] 1.3 10*3/uL High 0.0 - 0.7 10*3/uL [facility] Monocytes/100 WBC (Bld) 7.3 % 0.0 - 10.0 % [facility] Neutrophils (Bld) [#/Vol] 15.5 10*3/uL High 1.4 - 6.5 10*3/uL [facility] Neutrophils/100 WBC (Bld) 87.5 % High 37.0 - 75.0 % [facility] Platelet mean volume (Bld) [Entitic vol] 8.1 fL [facility] Platelets (Bld) [#/Vol] 330 10*3/uL 130.0 - 400.0 10*3/uL [facility] RBC (Bld) [#/Vol] 3.05 10*6/uL Low 4.0 - 5.4 10*6/uL [facility] WBC (Bld) [#/Vol] 17.7 10*3/uL High 3.6 - 11.0 10*3/uL [facility] RENAL FUNCTION PANELon 06-11 Albumin [Mass/Vol] 3.1 G/dl Low 3.5 - 5.0 G/dl [facility] Calcium [Mass/Vol] 8.6 mg/dL [facility] Chloride [Moles/Vol] 99 mmol/L [facility] CO2 [Moles/Vol] 21 mmol/L Low [facility] Creatinine [Mass/Vol] 1.48 mg/dL High [facility] GFR COMMENT Average GFR for 70+ years old = 75. [facility] Comment on above: Chronic Kidney disea se, GFR = <60. Kidney failure, GFR = <15. The GFR estimate is not adjusted for extreme body surface area or acute process, nor has it been validated for women or ethnic groups other than and . GFR/1.73 sq M.predicted among blacks MDRD (S/P/Bld) [Vol rate/Area] 45 mL/min/{1.73_m2} ml/min/1.73sq .m [facility] GFR/1.73 sq M.predicted among non-blacks MDRD (S/P/Bld) [Vol rate/Area] 37 mL/min/{1.73_m2} ml/min/1.73sq .m [facility] Glucose post fast [Mass/Vol] 137 mg/dL High [facility] Comment on above: NORMAL <100 mg/dL PREDIABETES 101-126 mg/dL DIABETES 126 mg/dL or higher Interpretation and review of laboratory results Abnormal [facility] Phosphate [Mass/Vol] 3.2 mg/dL [facility] Potassium [Moles/Vol] 4.2 mmol/L [facility] Sodium [Moles/Vol] 132 mmol/L Low [facility] Urea nitrogen [Mass/Vol] 36 mg/dL High [facility] CBC, EDIF, PLATELETon 2022 ABSOLUTE BASOPHIL COUNT 0.0 10*3/uL 0.0 - 0.2 10*3/uL [facility] Basophils/100 WBC (Bld) 0.1 % 0.0 - 2.0 % [facility] Differential cell count method Nom (Bld) AUTO DIFF % [facility] Eosinophils (Bld) [#/Vol] 0.0 10*3/uL 0.0 - 0.7 10*3/uL [facility] Eosinophils/100 WBC (Bld) 0.0 % 0.0 - 11.0 % [facility] Erythrocyte distribution width (RBC) [Ratio] 14.7 % High 11.5 - 14.5 % [facility] Hematocrit (Bld) [Volume fraction] 32.2 % Low 36.0 - 48.0 % [facility] Hemoglobin (Bld) [Mass/Vol] 10.5 g/dL Low [facility] Interpretation and review of laboratory results Abnormal [facility] Lymphocytes (Bld) [#/Vol] 0.8 10*3/uL Low 1.2 - 3.4 10*3/uL [facility] Lymphocytes/100 WBC (Bld) 4.8 % Low 20.0 - 55.0 % [facility] MCH (RBC) [Entitic mass] 31.3 pg 26.0 - 35.0 PG [facility] MCHC (RBC) [Mass/Vol] 32.7 g/dL [facility] MCV (RBC) [Entitic vol] 95.6 fL [facility] Monocytes (Bld) [#/Vol] 0.5 10*3/uL 0.0 - 0.7 10*3/uL [facility] Monocytes/100 WBC (Bld) 2.8 % 0.0 - 10.0 % [facility] Neutrophils (Bld) [#/Vol] 14.8 10*3/uL High 1.4 - 6.5 10*3/uL [facility] Neutrophils/100 WBC (Bld) 92.3 % High 37.0 - 75.0 % [facility] Platelet mean volume (Bld) [Entitic vol] 7.7 fL [facility] Platelets (Bld) [#/Vol] 352 10*3/uL 130.0 - 400.0 10*3/uL [facility] RBC (Bld) [#/Vol] 3.37 10*6/uL Low 4.0 - 5.4 10*6/uL [facility] WBC (Bld) [#/Vol] 16.1 10*3/uL High 3.6 - 11.0 10*3/uL [facility] NOVEL CORONAVIRUS LAB 1 - NA SOPHARYNGEALon 06-10-2022 NARRATIVE -1 This test was performed using isothermal GABRIELA and has been approved as Emergency Use Authorization (EUA) for the qualitative detection [id number] nucleic acid. [facility] SARS-CoV-2 (COVID-19) RNA GABRIELA+probe Ql (Unsp spec) Not detected NOT DETECTED [facility] Comment on above: Negative results do not [...] patient is critically ill or clinically deteriorating. [facility] RENAL FUNCTION PANELon 06-10 Albumin [Mass/Vol] 3.3 G/dl Low 3.5 - 5.0 G/dl [facility] Calcium [Mass/Vol] 8.9 mg/dL [facility] [facility] Chloride [Moles/Vol] 102 mmol/L [facility] CO2 [Moles/Vol] 21 mmol/L Low [facility] Creatinine [Mass/Vol] 1.40 mg/dL High [facility] GFR COMMENT Average GFR for 70+ years old = 75. [facility] Comment on above: Chronic Kidney disea se, [...] (S/P/Bld) [Vol rate/Area] 40 mL/min/{1.73_m2} ml/min/1.73sq .m [facility] Glucose post fast [Mass/Vol] 158 mg/dL High [facility] Comment on above: NORMAL <100 mg/dL PREDIABETES 101-126 mg/dL DIABETES 126 mg/dL or higher Interpretation and review of laboratory results Abnormal [facility] Phosphate [Mass/Vol] 3.8 mg/dL [facility] Potassium [Moles/Vol] 4.6 mmol/L [facility] Sodium [Moles/Vol] 133 mmol/L Low [facility] Urea nitrogen [Mass/Vol] 30 mg/dL High [facility] REPEAT ABO/RH (D) TYPINGon 0 06-09-2022 ABO and Rh group Nom (Bld ) Positive [facility] SCREEN: MRSA ONLY, NARES (IS OLATION SCREEN)on 06-09-2022 MRSA isol Org specific cx Ql (Nose) Not detected NOT DETECTED [facility] STAPHYOCOCCUS AUREUS BY PCR Not detected NOT DETECTED [facility] XR Knee - right 2 Viewson FINDINGS/IMPRESSION: [...] of complication. Expected perioperative soft tissue changes. [facility] Radiology Study observation (narrative) [facility] XR Knee - right 2 ViewsOrder ed By: Teresa Clemens on 06-09-2022 [facility] Work Phone: ECHOCARDIO M/2D COMPLETEon 0 05-29-2022 ECHOCARDIO M/2D COMPLETE Patient: SHERIE SD RocheRob Exam Date: 05/29/2022 : 1950 Gender:F Ordering : MRS. JEANIE STANLEY SHRIMPER Admission #: [id number] Family : Order #: [id number] CLICK HERE TO VIEW EXAM ECHOCARDIOGRAM REPORT [...] M.D. on 05/29/2022 at 17:11 Normal [facility] PTH INTACTon 05-29-2022 PTH, Intact 50 pg/mL Normal 15-65 [facility] Comment on above: Performed By: #### M G, RENAL, URIC #### [facility] [address] [place] [address] Dr. Demetra Costa HEMOGRAM AND PLATELon 2022 Hematocrit (Bld) [Volume fraction] 34.9 % Critically low 36.0-48.0 [facility] Comment on above: Performed By: #### H H #### [facility] [address] [place] [address] Dr. Demetra Costa Hemoglobin (Bld) [Mass/Vol] 11.2 g/dL Critically low 12.0-16.0 [facility] Comment on above: Performed By: #### H H #### [facility] [address] [place] [address] Dr. Demetra Costa MCH (RBC) [Entitic mass] 30.9 pg Normal 26.7-34.0 [facility] Comment on above: Performed By: #### H H #### [facility] [address] [place] [address] Dr. Demetra Costa MCHC (RBC) [Mass/Vol] 32.1 g/dL Normal 29.9-35.2 [facility] Comment on above: Performed By: #### H H #### [facility] [address] [place] [address] Dr. Demetra Costa MCV (RBC) [Entitic vol] 96.4 fL Normal 81.0-99.0 [facility] Comment on above: Performed By: #### H H #### [facility] [address] [place] [address] Dr. Demetra Costa PLT 341 103/ul Normal 150-450 [facility] Comment on above: Performed By: #### H H #### [facility] [address] [place] [address] Dr. Demetra Costa RBC 3.62 106/ul Critically low 4.20-5.40 [facility] Comment on above: Performed By: #### H H #### [facility] [address] [place] [address] Dr. Demetra Costa WBC 9.8 103/ul Normal 4.0-11.0 [facility] Comment on above: Performed By: #### H H #### [facility] [address] [place] [address] Dr. Demetra Costa MAGNESIUMon 05-28-2022 Magnesium [Mass/Vol] 1.9 mg/dL Normal 1.8-2.4 [facility] Comment on above: Performed By: #### M G, RENAL, URIC #### [facility] [address] [place] [address] Dr. Demetra Costa RENAL FUNCTION PANELon 05-28 Albumin [Mass/Vol] 3.2 g/dL Critically low 3.4-5.0 [facility] Comment on above: Performed By: #### M G, RENAL, URIC #### [facility] [address] [address] [address] Demetra Costa Calcium [Mass/Vol] 9.4 mg/dL Normal 8.5-10.1 [facility] Comment on above: Performed By: #### M G, RENAL, URIC #### [facility] [address] [address] [address] Demetra Costa Chloride [Moles/Vol] 103 mmol/L Normal 98-107 [facility] Comment on above: Performed By: #### M G, RENAL, URIC #### [facility] [address] [place] [address] Dr. Demetra Costa CO2 [Moles/Vol] 25.4 mmol/L Normal 21.0-32.0 [facility] Comment on above: Performed By: #### M G, RENAL, URIC #### [facility] [address] [place] [address] Dr. Demetra Costa Creatinine [Mass/Vol] 1.52 mg/dL Critically high 0.55-1.02 [facility] Comment on above: Performed By: #### M G, RENAL, URIC #### [facility] [address] [place] [address] Dr. Demetra Costa EGFR-AF DJIBOUTIAN 41 mL/min/1.73m2 Critically low >=60 [facility] Comment on above: Performed By: #### M G, RENAL, URIC #### [facility] [address] [place] [address] Dr. Demetra Costa EGFR-NON AF DJIBOUTIAN 34 mL/min/1.73m2 Critically low >=60 [facility] Comment on above: Performed By: #### M G, RENAL, URIC #### [facility] [address] [place] [address] Dr. Demetra Costa Glucose [Mass/Vol] 115 mg/dL Critically high 74-[address] [facility] Comment on above: Performed By: #### M G, RENAL, URIC #### [facility] [address] [place] [address] Dr. Demetra Costa Phosphate [Mass/Vol] 3.5 mg/dL Normal 2.6-4.7 [facility] Comment on above: Performed By: #### M G, RENAL, URIC #### [facility] [address] [place] [address] Dr. Demetra Costa Potassium [Moles/Vol] 4.7 mmol/L Normal 3.5-5.1 [facility] Comment on above: Performed By: #### M G, RENAL, URIC #### [facility] [address] [place] [address] Dr. Demetra Costa Sodium [Moles/Vol] 137 mmol/L Normal 136-145 [facility] Comment on above: Performed By: #### M G, RENAL, URIC #### [facility] [address] [place] [address] Dr. Demetra Costa Urea nitrogen [Mass/Vol] 29.0 mg/dL Critically high 7.0-18.0 [facility] Comment on above: Performed By: #### M G, RENAL, URIC #### [facility] [address] [place] [address] Dr. Demetra Costa URIC ACID SERUMon 05-28-2022 Urate [Mass/Vol] 5.1 mg/dL Normal 2.6-6.0 [facility] Comment on above: Performed By: #### M G, RENAL, URIC #### [facility] [address] [place] [address] Dr. Demetra Costa VITAMIN D 25 OHon 05-28-2022 VIT D 25-OH 29.1 ng/mL Normal [facility] Comment on above: Performed By: #### U PARESH, CMP #### [facility] [address] [place] [address] Dr. Demetra Costa VIT D RANGES SEE BELOW Normal [facility] Comment on above: Result Comment: <20 ng/mL Vit D deficient 20 - <30 ng/mL Vit D insufficient 30 - 100 ng/mL Vit D sufficient >100 ng/mL Potential Toxicity Performed By: #### U PARESH, CMP #### [facility] [address] [place] [address] Dr. Demetra Lomeli 05-05-2022 ANNE Telephone (HEMASA) SHERIESD Melchor ([id number]) 1950 F Date Time Provider Department 05/05/22 [...] Status:Closed by ALEXANDRA QUICK on 05/05/22 Normal [facility] CBC W Auto Differential pane l (Bld)on 05-02-2022 Basophils (Bld) [#/Vol] 0.12 10*3/uL High <0.11 [facility] Comment on above: Order Comment: Speci men Type: BLOOD SPECIMEN Ordering Facility: [facility] Address: [address] [address] Performed By: #### 5 7021-8 #### [facility] CLIA [id number] [address] [place] [address] 99556 Basophils/100 WBC (Bld) 0.9 % Normal [facility] Comment on above: Order Comment: Speci men Type: BLOOD SPECIMEN Ordering Facility: [facility] Address: [address] [address] Performed By: #### 5 7021-8 #### [facility] CLIA [id number] [address] [place] [address] 55546 Differential cell count method Nom (Bld) Auto Normal [facility] Comment on above: Order Comment: Speci men Type: BLOOD SPECIMEN Ordering Facility: [facility] Address: [address] [address] Performed By: #### 5 7021-8 #### [facility] CLIA [id number] [address] [place] [address] 91392 Eosinophils (Bld) [#/Vol] 0.27 10*3/uL Normal <0.46 [facility] Comment on above: Order Comment: Speci men Type: BLOOD SPECIMEN Ordering Facility: [facility] Address: [address] [address] Performed By: #### 5 7021-8 #### [facility] CLIA [id number] [address] [place] [address] 97726 Eosinophils/100 WBC (Bld) 2.0 % Normal [facility] Comment on above: Order Comment: Speci men Type: BLOOD SPECIMEN Ordering Facility: [facility] Address: [address] [address] Performed By: #### 5 7021-8 #### [facility] CLIA [id number] [address] [place] [address] 89726 Erythrocyte distribution width (RBC) [Ratio] 13.2 % Normal 11.5-15.0 [facility] Comment on above: Order Comment: Speci men Type: BLOOD SPECIMEN Ordering Facility: [facility] Address: [address] [address] Performed By: #### 5 7021-8 #### [facility] CLIA [id number] [address] [place] [address] 91671 Hematocrit (Bld) [Volume fraction] 38.6 % Normal 36.0-46.0 [facility] Comment on above: Order Comment: Speci men Type: BLOOD SPECIMEN Ordering Facility: [facility] Address: [address] [address] Performed By: #### 5 7021-8 #### [facility] CLIA [id number] [address] [place] [address] 58647 Hemoglobin (Bld) [Mass/Vol] 12.4 g/dL Normal 11.5-15.5 [facility] Comment on above: Order Comment: Speci men Type: BLOOD SPECIMEN Ordering Facility: [facility] Address: [address] [place] [address] Performed By: #### 5 7021-8 #### [facility] CLIA [id number] [address] [place] [address] 89617 Immature granulocytes (Bld) [#/Vol] 0.09 10*3/uL Normal <0.10 [facility] Comment on above: Order Comment: Speci men Type: BLOOD SPECIMEN Ordering Facility: [facility] Address: [address] [place] [address] Performed By: #### 5 7021-8 #### [facility] CLIA [id number] [address] [place] [address] 42434 Immature granulocytes/100 WBC (Bld) 0.7 % Normal [facility] Comment on above: Order Comment: Speci men Type: BLOOD SPECIMEN Ordering Facility: [facility] Address: [address] [place] [address] Performed By: #### 5 7021-8 #### [facility] CLIA [id number] [address] [place] [address] 68961 Lymphocytes (Bld) [#/Vol] 2.78 10*3/uL Normal 1.00-4.00 [facility] Comment on above: Order Comment: Speci men Type: BLOOD SPECIMEN Ordering Facility: [facility] Address: [address] [place] [address] Performed By: #### 5 7021-8 #### [facility] CLIA [id number] [address] [place] [address] 13219 Lymphocytes/100 WBC (Bld) 20.1 % Normal [facility] Comment on above: Order Comment: Speci men Type: BLOOD SPECIMEN Ordering Facility: [facility] Address: [address] [address] Performed By: #### 5 7021-8 #### [facility] CLIA [id number] [address] [place] [address] 49939 MCH (RBC) [Entitic mass] 31.3 pg Normal 26.0-34.0 [facility] Comment on above: Order Comment: Speci men Type: BLOOD SPECIMEN Ordering Facility: [facility] Address: [address] [address] Performed By: #### 5 7021-8 #### [facility] CLIA [id number] [address] [place] [address] 01815 MCHC (RBC) [Mass/Vol] 32.1 g/dL Normal 30.5-36.0 [facility] Comment on above: Order Comment: Speci men Type: BLOOD SPECIMEN Ordering Facility: [facility] Address: [address] [address] Performed By: #### 5 7021-8 #### [facility] CLIA [id number] [address] [place] [address] 32371 MCV (RBC) [Entitic vol] 97.5 fL Normal 80.0-100.0 [facility] Comment on above: Order Comment: Speci men Type: BLOOD SPECIMEN Ordering Facility: [facility] Address: [address] [address] Performed By: #### 5 7021-8 #### [facility] CLIA [id number] [address] [place] [address] 98722 Monocytes (Bld) [#/Vol] 1.13 10*3/uL High <0.87 [facility] Comment on above: Order Comment: Speci men Type: BLOOD SPECIMEN Ordering Facility: [facility] Address: [address] [place] [address] Performed By: #### 5 7021-8 #### [facility] CLIA [id number] [address] [place] [address] 65572 Monocytes/100 WBC (Bld) 8.2 % Normal [facility] Comment on above: Order Comment: Speci men Type: BLOOD SPECIMEN Ordering Facility: [facility] Address: [address] [address] Performed By: #### 5 7021-8 #### [facility] CLIA [id number] [address] [place] [address] 34748 Neutrophils (Bld) [#/Vol] 9.43 10*3/uL High 1.45-7.50 [facility] Comment on above: Order Comment: Speci men Type: BLOOD SPECIMEN Ordering Facility: [facility] Address: [address] [address] Performed By: #### 5 7021-8 #### [facility] CLIA [id number] [address] [place] [address] 13339 Neutrophils/100 WBC (Bld) 68.1 % Normal [facility] Comment on above: Order Comment: Speci men Type: BLOOD SPECIMEN Ordering Facility: [facility] Address: [address] [address] Performed By: #### 5 7021-8 #### [facility] CLIA [id number] [address] [place] [address] 38245 Nucleated RBC (Bld) [#/Vol] 10*3/uL Normal <0.01 [facility] Comment on above: Order Comment: Speci men Type: BLOOD SPECIMEN Ordering Facility: [facility] Address: [address] [address] Performed By: #### 5 7021-8 #### [facility] CLIA [id number] [address] [place] [address] 37489 Nucleated RBC/100 WBC (Bld) [Ratio] 0.0 /100 WBC Normal [facility] Comment on above: Order Comment: Speci men Type: BLOOD SPECIMEN Ordering Facility: [facility] Address: [address] [address] Performed By: #### 5 7021-8 #### [facility] CLIA [id number] [address] [place] [address] Platelet mean volume (Bld) [Entitic vol] 8.6 fL Low 9.0-12.7 [facility] Comment on above: Order Comment: Speci men Type: BLOOD SPECIMEN Ordering Facility: [facility] Address: [address] [place] [address] Performed By: #### 5 7021-8 #### [facility] CLIA [id number] [address] [place] [address] 42908 Platelets (Bld) [#/Vol] 416 10*3/uL High 150-400 [facility] Comment on above: Order Comment: Speci men Type: BLOOD SPECIMEN Ordering Facility: [facility] Address: [address] [place] [address] Performed By: #### 5 7021-8 #### [facility] CLIA [id number] [address] [place] [address] 62018 RBC (Bld) [#/Vol] 3.96 10*6/uL Normal 3.90-5.20 [facility] Comment on above: Order Comment: Speci men Type: BLOOD SPECIMEN Ordering Facility: [facility] Address: [address] [place] [address] Performed By: #### 5 7021-8 #### [facility] CLIA [id number] [address] [place] [address] 79241 WBC (Bld) [#/Vol] 13.82 10*3/uL High 3.70-11.00 [facility] Comment on above: Order Comment: Speci men Type: BLOOD SPECIMEN Ordering Facility: [facility] Address: [address] [place] [address] Performed By: #### 5 7021-8 #### [facility] CLIA [id number] [address] [place] [address] 18632 CNOVSPon 05-02-2022 CNOVSP Visit (SP) Office (HEMAS[place]) SD REHMAN Melchor ([id number]) 1950 F Date Time Provider Department 05/02/22 2:30 PM DENNIS LOMAS During your visit today, we recorded the following information about you: Temperature Pulse Respiration Blood pressure 97.2 degrees 94/minute 16/minute 149/74 Weight Height 101.4 kg 1.575 m Dennis Lomas MD 05/10/2022 10:42 AM Signed NAME: Sd Rehman CLINIC NO.: [id number] DATE OF SERVICE: May 02, 2022 (Feliciano) [...] Known A (more content not included)... Normal [facility] CRP SerPl-mCncon 05-02-2022 CRP [Mass/Vol] 1.9 mg/dL High <0.9 [facility] Comment on above: Order Comment: Speci men Type: BLOOD SPECIMEN Ordering Facility: [facility] Address: [address] [place], [place] [address] [address] Performed By: #### 5 0190-8, 1987-5, 2276-4 #### [facility] CLIA [id number] [address] [facility] [id number] [address] [facility] Comprehensive metabolic 2000 panelon 05-02-2022 Albumin [Mass/Vol] 4.0 g/dL Normal 3.9-4.9 [facility] Comment on above: Order Comment: Speci men Type: BLOOD SPECIMEN Ordering Facility: [facility] Address: [address] Performed By: #### 2 532-0, 04805-8 #### [facility] CLIA [id number] [address] [place] [address] 01365 ALP [Catalytic activity/Vol] 117 U/L Normal 34-123 [facility] Comment on above: Order Comment: Speci men Type: BLOOD SPECIMEN Ordering Facility: [facility] Address: [address] [address] Performed By: #### 2 532-0, 14573-7 #### [facility] CLIA [id number] [address] [place] [address] 29397 ALT [Catalytic activity/Vol] 9 U/L Normal 7-38 [facility] Comment on above: Order Comment: Speci men Type: BLOOD SPECIMEN Ordering Facility: [facility] Address: [address] Performed By: #### 2 532-0, 42460-0 #### [facility] CLIA [id number] [address] [place] [address] 50731 Anion gap [Moles/Vol] 12 mmol/L Normal 9-18 [facility] Comment on above: Order Comment: Speci men Type: BLOOD SPECIMEN Ordering Facility: [facility] Address: [address] Performed By: #### 2 532-0, 75425-4 #### [facility] CLIA [id number] [address] [place] [address] 19167 AST [Catalytic activity/Vol] 12 U/L Low 13-35 [facility] Comment on above: Order Comment: Speci men Type: BLOOD SPECIMEN Ordering Facility: [facility] Address: [address] [address] Performed By: #### 2 532-0, #### [facility] CLIA [id number] [address] [place] [address] 74526 Bilirubin [Mass/Vol] 0.3 mg/dL Normal 0.2-1.3 [facility] Comment on above: Order Comment: Speci men Type: BLOOD SPECIMEN Ordering Facility: [facility] Address: [address] [address] Performed By: #### 2 532-0, #### [facility] CLIA [id number] [address] [place] [address] 39394 Calcium [Mass/Vol] 10.1 mg/dL Normal 8.5-10.2 [facility] Comment on above: Order Comment: Speci men Type: BLOOD SPECIMEN Ordering Facility: [facility] Address: [address] [address] Performed By: #### 2 532-0, #### [facility] CLIA [id number] [address] [place] [address] 00749 Chloride [Moles/Vol] 104 mmol/L Normal 97-105 [facility] Comment on above: Order Comment: Speci men Type: BLOOD SPECIMEN Ordering Facility: [facility] Address: [address] Performed By: #### 2 532-0, #### [facility] CLIA [id number] [address] [place] [address] 76648 CO2 [Moles/Vol] 25 mmol/L Normal 22-30 [facility] Comment on above: Order Comment: Speci men Type: BLOOD SPECIMEN Ordering Facility: [facility] Address: [address] [address] Performed By: #### 2 532-0, 99745-8 #### [facility] CLIA [id number] [address] [place] [address] 12270 Creatinine [Mass/Vol] 1.78 mg/dL High 0.58-0.96 [facility] Comment on above: Order Comment: Tere dubois Type: BLOOD SPECIMEN Ordering Facility: [facility] Address: [address] Performed By: #### 2 532-0, 89616-2 #### [facility] CLIA [id number] [address] [place] [address] 18958 ESTIMATED GLOMERULAR FILTRATION RATE 30 mL/min/1.73m??? Low >=60 [facility] Comment on above: Order Comment: Tere dubois Type: BLOOD SPECIMEN Ordering Facility: [facility] Address: [address] [place] [address] Result Comment: Linda mated Glomerular Filtration Rate [...] actual GFR. Performed By: #### 2 532-0, 66162-8 #### [facility] CLIA [id number] [address] [place] [address] 69686 Glucose [Mass/Vol] 97 mg/dL Normal 74-99 [facility] Comment on above: Order Comment: Tere dubois Type: BLOOD SPECIMEN Ordering Facility: [facility] Address: [address] [place], [place] [address] Result Comment: The [place] [employer] (ADA) provides guidance for cutoff [...] Standards of Medical Care in Diabetes 2016, [place] [employer]. Diabetes Care. 2016.39(Suppl 1). Performed By: #### 2 532-0, 19357-5 #### [facility] CLIA [id number] [address] [place] [address] 83850 Potassium [Moles/Vol] 4.4 mmol/L Normal 3.7-5.1 [facility] Comment on above: Order Comment: Speci men Type: BLOOD SPECIMEN Ordering Facility: [facility] Address: [address] [address] Performed By: #### 2 532-0, 18732-0 #### [facility] CLIA [id number] [address] [place] [address] 78533 Protein [Mass/Vol] 7.1 g/dL Normal 6.3-8.0 [facility] Comment on above: Order Comment: Speci men Type: BLOOD SPECIMEN Ordering Facility: [facility] Address: [address] [address] Performed By: #### 2 532-0, 29771-3 #### [facility] CLIA [id number] [address] [place] [address] 55214 Sodium [Moles/Vol] 141 mmol/L Normal 136-144 [facility] Comment on above: Order Comment: Speci men Type: BLOOD SPECIMEN Ordering Facility: [facility] Address: [address] [address] Performed By: #### 2 532-0, 97346-1 #### [facility] LAB CLIA [id number] [address] [place] [address] Urea nitrogen [Mass/Vol] 33 mg/dL High 7-21 [facility] Comment on above: Order Comment: Speci men Type: BLOOD SPECIMEN Ordering Facility: [facility] Address: [address] [address] Performed By: #### 2 532-0, 21594-0 #### [facility] CLIA [id number] [address] [place], [place] [id number] ESR Westergren method (Bld) [Velocity]on 05-02-2022 ESR (Bld) [Velocity] 79 mm/h High 0-20 [facility] Comment on above: Order Comment: Speci men Type: BLOOD SPECIMENOrdering Facility: [facility] Address: [address] [place] [address] Performed By: #### 4 537-7 ####[facility] [id number] [place] [address] [place] Ferritin SerPl-mCncon 2022 Ferritin [Mass/Vol] 113.0 ng/mL Normal 14.7-205.1 [facility] Comment on above: Order Comment: Speci men Type: BLOOD SPECIMEN Ordering Facility: [facility] Address: [address] [place] [address] Performed By: #### 5 0190-8, 1987-, 64 #### [facility] CLIA [id number] [address] [place] [address] [place] Folate SerPl-mCncon 05-02-19 23 Folate [Mass/Vol] 3.4 ng/mL Low >4.7 [facility] Comment on above: Order Comment: Speci men Type: BLOOD SPECIMEN Ordering Facility: [facility] Address: [address] [place] [address] Performed By: #### 2 132-9, 2284-8 #### [facility] CLIA [id number] [address] [place] [address] [place] Iron and Iron binding capaci ty panelon 05-02-2022 Iron [Mass/Vol] 52 ug/dL Normal 41-186 [facility] Comment on above: Order Comment: Speci men Type: BLOOD SPECIMEN Ordering Facility: [facility] Address: [address] [place], [place] [id number] Performed By: #### 5 0190-8, 1987-07, 2275-06 #### [facility] CLIA [id number] [address] [place] [address] [place] Iron binding capacity [Mass/Vol] 310 ug/dL Normal 232-386 [facility] Comment on above: Order Comment: Speci men Type: BLOOD SPECIMEN Ordering Facility: [facility] Address: [address] [place], [place] [address] Performed By: #### 5 0190-8, 2275-06 #### [facility] CLIA [id number] [address] [place] [address] [place] Iron/TIBC [Molar ratio] 16.8 % Normal 15.0-57.0 [facility] Comment on above: Order Comment: Speci men Type: BLOOD SPECIMEN Ordering Facility: [facility] Address: [address] [place] [address] Performed By: #### 5 0190-8, 2275-06 #### [facility] CLIA [id number] [address] [place] [address] [place] LDH SerPl-cCncon 05-02-2022 LDH [Catalytic activity/Vol] 177 U/L Normal 135-214 [facility] Comment on above: Order Comment: Speci men Type: BLOOD SPECIMEN Ordering Facility: [facility] Address: [address] [place], [place] [address] Performed By: #### 2 532-0, 50913-9 #### [facility] CLIA [id number] [address] [place] [address] Vit B12 SerPl-mCncon 023 Cobalamin (Vitamin B12) [Mass/Vol] 510 pg/mL Normal 232-1245 [facility] Comment on above: Order Comment: Speci men Type: BLOOD SPECIMEN Ordering Facility: [facility] Address: [address] [place], [place] [id number] Performed By: #### 2 132-9, 2284-8 #### 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 [facility] Whole body Views W In-111 tagged WBC IVOrdered By: Teresa Steve on 03-11-2022 [facility] Work Phone: NUC BONE MARROW LIMITED AREA [...] infection about the right knee arthroplasty. Normal [facility] NUC WBC STUDYon 03-11-2022 NUC WBC [...] infection about the right knee arthroplasty. Normal [facility] [place] Whole body Views W In-111 tagged WBC Thea 03-10-2022 Radiology Study observation (narrative) [facility] CNOVSPon 02-28-2022 CNOVSP Visit (SP) Office (HEMASA) SD REHMAN ([id number]) 1950 F Date Time Provider Department 02/28/22 3:00 PM DENNIS LOMAS During your visit today, we recorded the following information about you: Temperature Pulse Respiration Blood pressure 97.1 degrees 85/minute 16/minute 147/72 Weight Height 100.7 kg 1.575 m Dennis Lomas MD 03/11/2022 8:25 AM Signed NAME: Sd Rehman CLINIC NO.: [id number] DATE OF SERVICE: February 28, 2022 (Feliciano) [...] 1 T (more content not included)... Normal [facility] LYNDA DOP LEG BILon 022 US LYNDA [...] by: TERESA AZUL Date: 2022-02-27 14:25 Normal [facility] LARGE JOINT/BURSA INJECTION AND/OR ASPIRATION: R knee 02-20-2022 Radiology Study observation (narrative) [facility] LARGE JOINT/BURSA INJECTION AND/OR ASPIRATION: R knee [...] complications The patient was prepped with Chloraprep. [facility] PTH INTACTon 02-18-2022 PTH, Intact 55 pg/mL Normal 15-65 [facility] Comment on above: Performed By: #### M G, RENAL, URIC #### [facility] [address] [address] [address] Demetra Costa HEMOGRAM AND PLATELon 2021 Hematocrit (Bld) [Volume fraction] 41.8 % Normal 36.0-48.0 [facility] Comment on above: Performed By: #### H H #### [facility] [address] [place] [address] Dr. Demetra Costa Hemoglobin (Bld) [Mass/Vol] 14.0 g/dL Normal 12.0-16.0 [facility] Comment on above: Performed By: #### H H #### [facility] [address] [place] [address] Dr. Demetra Costa MCH (RBC) [Entitic mass] 33.7 pg Normal 26.7-34.0 [facility] Comment on above: Performed By: #### H H #### [facility] [address] [place] [address] Dr. Demetra Costa MCHC (RBC) [Mass/Vol] 33.5 g/dL Normal 29.9-35.2 [facility] Comment on above: Performed By: #### H H #### [facility] [address] [place] [address] Dr. Demetra Costa MCV (RBC) [Entitic vol] 100.5 fL Critically high 81.0-99.0 [facility] Comment on above: Performed By: #### H H #### [facility] [address] [place] [address] Dr. Demetra Costa PLT 397 103/ul Normal 150-450 [facility] Comment on above: Performed By: #### H H #### [facility] [address] [place] [address] Dr. Demetra Costa RBC 4.16 106/ul Critically low 4.20-5.40 [facility] Comment on above: Performed By: #### H H #### [facility] [address] [place] [address] Dr. Demetra Costa WBC 13.6 103/ul Critically high 4.0-11.0 [facility] Comment on above: Performed By: #### H H #### [facility] [address] [place] [address] Dr. Demetra Costa MAGNESIUMon 02-17-2022 Magnesium [Mass/Vol] 2.0 mg/dL Normal 1.8-2.4 [facility] Comment on above: Performed By: #### M G, RENAL, URIC #### [facility] [address] [place] [address] Dr. Demetra Costa RENAL FUNCTION PANELon 02-17 Albumin [Mass/Vol] 3.4 g/dL Normal 3.4-5.0 [facility] Comment on above: Performed By: #### M G, RENAL, URIC #### [facility] [address] [place] [address] Dr. Demetra Costa Calcium [Mass/Vol] 10.1 mg/dL Normal 8.5-10.1 [facility] Comment on above: Performed By: #### M G, RENAL, URIC #### [facility] [address] [place] [address] Dr. Demetra Costa Chloride [Moles/Vol] 99 mmol/L Normal 98-107 [facility] Comment on above: Performed By: #### M G, RENAL, URIC #### [facility] [address] [place] [address] Dr. Demetra Costa CO2 [Moles/Vol] 24.9 mmol/L Normal 21.0-32.0 [facility] Comment on above: Performed By: #### M G, RENAL, URIC #### [facility] [address] [place] [address] Dr. Demetra Costa Creatinine [Mass/Vol] 1.79 mg/dL Critically high 0.55-1.02 [facility] Comment on above: Performed By: #### M G, RENAL, URIC #### [facility] [address] [place] [address] Dr. Demetra Costa EGFR-AF DJIBOUTIAN 34 mL/min/1.73m2 Critically low >=60 [facility] Comment on above: Performed By: #### M G, RENAL, URIC #### [facility] [address] [place] [address] Dr. Demetra Costa EGFR-NON AF DJIBOUTIAN 28 mL/min/1.73m2 Critically low >=60 [facility] Comment on above: Performed By: #### M G, RENAL, URIC #### [facility] [address] [place] [address] Dr. Demetra Costa Glucose [Mass/Vol] 127 mg/dL Critically high 74-[address] [facility] Comment on above: Performed By: #### M G, RENAL, URIC #### [facility] [address] [address] [address] Demetra Costa Phosphate [Mass/Vol] 3.6 mg/dL Normal 2.6-4.7 [facility] Comment on above: Performed By: #### M G, RENAL, URIC #### [facility] [address] [address] [address] Demetra Costa Potassium [Moles/Vol] 4.1 mmol/L Normal 3.5-5.1 [facility] Comment on above: Performed By: #### M G, RENAL, URIC #### [facility] [address] [place] [address] Dr. Demetra Costa Sodium [Moles/Vol] 137 mmol/L Normal 136-145 [facility] Comment on above: Performed By: #### M G, RENAL, URIC #### [facility] [address] [place] [address] Dr. Demetra Costa Urea nitrogen [Mass/Vol] 41.0 mg/dL Critically high 7.0-18.0 [facility] Comment on above: Performed By: #### M G, RENAL, URIC #### [facility] [address] [place] [address] Dr. Demetra Costa URIC ACID SERUMon 02-17-2022 Urate [Mass/Vol] 7.9 mg/dL Critically high 2.6-6.0 [facility] Comment on above: Performed By: #### M G, RENAL, URIC #### [facility] [address] [place] [address] Dr. Demetra Costa VITAMIN D 25 OHon 02-17-2022 VIT D 25-OH 33.4 ng/mL Normal [facility] Comment on above: Performed By: #### M G, RENAL, URIC #### [facility] [address] [place] [address] Dr. Demetra Costa VIT D RANGES SEE BELOW Normal [facility] Comment on above: Result Comment: <20 ng/mL Vit D deficient 20 - <30 ng/mL Vit D insufficient 30 - 100 ng/mL Vit D sufficient >100 ng/mL Potential Toxicity Performed By: #### M G, RENAL, URIC #### [facility] [address] [place] [address] Dr. Demetra Costa C REACTIVE PROTEINon 022 CRP [Mass/Vol] 12.3 mg/L High 0 - 10.0 MG/L [employer] [facility] System Interpretation and review of laboratory results Abnormal idio System [employer]io System SEDIMENTATION RATE, AUTOMATE Don 01-02-2022 ESR (Bld) [Velocity] 44 mm/h High [employer] System Interpretation and review of laboratory results Abnormal [employer] System Coding Summaryon 12-27-2021 Coding Summary [employer] 64 QwijlguzIHe9hAf+PGhlYW Q+QI9UDYPgT68bhNQijE4P S9dFBK8PWQCVEXUPTO2CTP 2suIP0NQysT3UazcVr BmzgwIDyTN19FBf1YPO6zI awDCdsmZ0fvLLlR5i5WhEz LB22eP47HLzoKKQyLlD5Mq ZpbjsgbWFy Q3jnBaSpkMUsWok+PHRhYm xlIHdpZHRoPScxMDAlJyBz mHlyEH9kIr3pRLIeLKNzzM xhcHNlOiBj n8hwLEAzQTfnCH8rcHjkI8 OcwNM3YJWrm1d7Xk60nDF+ SGVhBKD5pHgtXPzqa472At Lmm1xoGFI8 jFVsVQlfINS7J26ky2C7DE IwCWNwKIP6kVP8yX2odAab kjttS5KpcNVmQsR4HRC3uW YbnD9rfEwh chppcG6kLqq+P79XUS8TAH OOPM4QIdj2R3DjJmpopTB+ HP55DLHnHT83bWGkfTNwy8 cfdJh3ZoHp VTQcJBR6vDwxTSnfz1GsHI RlW84vjIHwv3C4WENgaCqu hFTlYtLcjQN6dW2fEXldph cod0fzhpnv Dnmdp5xsgy53vL41Q89cGY qcWBIuVCU0YOXwKJIupJvk ii2deR2vLm2+YGjik7jkf4 mfwMz7BhSq EEJuadScfKmeUAI5o4LcBf 34G6UgtUqwy2GpOeg5as88 fJRqf9K1aLP4CKrvMHZhqE 4jYSbxKiQ2 RNHoPxHkvW07iDGcQAfvAo 1muHdyxMgjNK1fFJMwkpwb IMRewQ8mTKUtqCSmlHnlAQ 4wNTBpbjtm y572AdCfMEC8IZEzgOPaC7 QmmR9xBwZaTRYaGHJxZ6Gi sQSqHDtuT051KRefKpJ3RA ZxfeJiO3Xu WOYafXlrTyL7e2W1Wi9Fv2 GaeitrGIE2XBwbONFsWdC4 VnHzKvM7U7VbElb5LSGbnH xaID0zQ6Fj VVXshdmxppzylNC7MLXhTG GtxE24dKKqXZwjIw1qe8X1 d511GBPhZOIlzC27Cu7xnO ogMTBwdCBU iK7lymjub4jquhayTgBmWV NcOXj9QEt7JOFjhFhtUuOs UFR7DlY5HRI7zFFijR1ctG pktefsnD7j Oyc+E54ihT5eWBZ1FTU6vz ocRRTvzvVdAW52AM65G3Cj PjwvdGFibGU+PGRpdiBzdH uzXZ6eMpEm d4ouq1CgEJweB1PrMIQaRG jlGzq9BZMpBDT8wJY0yH8q FYKxKEyfz2U0cBW3F5Pvsx Wmqd9hd3ak QNSpNJnxI74fwELup6Y5DQ HxePO2WYHybZmcGoKnvM03 Oyc+RWSrfTwpj2JsRmvyc8 kbg3ltzJj5 CpMuBWJutfGtaTqxWKM5p1 LdOy97C96aMDleSKTzIZAs UEGhFZAtrQzrum1qzA2lYb 8+PGNvbCB3 pBX7bN7yTEGlAoJ1UNbgQ0 09UjYnuXAgLbuux4cby2qm xJs1NlNpUQZcioNxlGcwOM M6d3FxSn23 L73gXQcgHRCdFLHtQFTeHZ YnmJqqti1vyM1bUv9+PC9j v7nelu15vN35eSK+PHRkIH W5nHylEUcg EZPdyQ0dTQebXqD6PCNtFd YrwD78tJBfYYpoGy2akVxd mJnfQP4oCDZvivedz515Hs Zfv4dpOBPz uXZeQIvvCNF1M60as0A2HR NjAFHyZJP5vLE5fK0mgSmw bjogbGVmdDsgdmVydGljYW riYXqrE645 IHRvcDsnPlBhdGllbnQgTm CtPYo3K3UfLbf8DHElaCtz HO6jfTInDWzpAz3ouAlnsT zaQZ7cPTHd uoymf945EkGnk4qiFPCkrR LjHEutILC4K14xb7Z0JVHc PJFpXPP8sTE8mI2wuNxufg ogbGVmdDsg fdPspBtyDFxmBOsdU249OI RvcDsnPkJpcnRoIERhdGU6 ZU85JM81nFYyd8I4cWS1U9 BhZGRpbmct xpykxQD6VOFlJEVmlP92Su 3rqKhaXc5iVSSlXLC7QGMe hFVgN4RffG0qGyRhELNmXY GjP1GghHSy KYwwO733CHblLaR0DYBweo SgX3ViHUYyvVdbIeQ4n0U0 Jd1JV6M7YF26AU93jBWzo0 G2lOI3F2Ya SUMqyfpymcimkHM9GLJhCB NafW45Tx8mmQdoPr6tKOGt LHT3NNQvtDYhG0VtqN7vTv AjMDAwMDAw M8NhwKSbEMoyD931BCopEb C8IBVzmxMqK2GwPBLmvAqi RxE8e7Z1Mh0SIFe1MU64TD 99rSZuz8M3 vEH0V2RnLZGzjekplhsbzE V8UUTjHJCryM62Cl4riGyq Ho3wFRCrCUR6EHEocEXcR3 CycE3mAxSv AWLjLCFsC1YtaTKhEMncA6 83NYukAlR4SPNlypRfE5Pf IXPxbWxqOvR8i5P5Zu1BOY BbGM07DEF2 cWR4ZJ01PY05U6HnYqdjyQ FibGU+PHRhYmxlIHdpZHRo AUbsYDGiPrWrxDurGE1qWe 9yZGVyLWNv dYoxjRNxXmYjz3bmXDBbXR ooES7vdHxxK2LrwPY1GAPq p2q7Fa53H81mU9YmoZA+PG HpiYM1zQC6 qF5jIjNqPsR9RDdeS270Zy KdoAXwIaeto6adj5hxzXr4 MmR7CMDgkzGcuBaoGVN6s9 MdSe53F06z IHdpZHRoPSIxNSUiIHZhbG tulm7zwR7yQp1+PGNvbCB3 vMX4cE7lXxAcRmO2NIrxN3 49InRvcCIv Zmvqs8kar6bukUt5ToCaLR XzivBkbIklEMX1p7TvBy12 X1GjoKioh8TiStg8aa65gW Zvb3M1fPK3 R1CnOMDxwlkliQBqsAwsNO 2gZGNwmmudAQLnpW9kCCUz L9a8XwTtHmP9OHblW3Nayh M6MOZxdHPz WJdaXVN5H60xj9Y4UNNbQE AcZZP7xGF0uH5lnLgjsbap bGVmdDsgdmVydGljYWwtYW xuV424KRIk dDjjUPIrwT0qWSLdzTRqpS boMS1hRXLxhdahVduRWDFH RVIsIEJBUkJBUkEgRzwvdG Q+PHRkIHN0 dKypSVkhWICeqV8xJUNnF6 q5XyEpFgB3VNasG8GvPKLh ubloFj75nW6yHsOrWiE0EV usY5WjpxC2 IYHmzZJnMIqnFRQ8T83kv7 A5PBEzTVGlGTG2vVJ3oR0d bGlnbjogbGVmdDsgdmVydG ljYWwtYWxp N898YUYtrIejAxR5RvU1Vf X3OLJ9I7CsYsh6ARYatQpe PU0xsJGfYIjhLw4slZqcjK yeVC6lBGCs vwimRBZylT8eFTOgqFCujI wrVH3qYXRkqllvp502HiQc ZSX6ZQOfzRHaQ6FisP9xMe AjMDAwMDAw U7XnzPIlIIpnI674GYpyTt Y2GILbnrZuS8QfJBMkfOon DmP7h9V5Fm25WMZXATQlgy wvdGQ+PHRk BDE2pZrsMLzaPNIddC7xXA BxZ5l8KxMaWxF3XTuaQ9Yp ACZimxgbMz06vF4yHlAfMc B9MYzfW7Wk slR6JPMwcYVhKUygTYP9K4 1vp9B4PJMsCOYdAIL8tTA4 hJ1yaWijhbejlOMfdBroxg VydGljYWwt OSgpT180HJMlaCsvUpIYTU FMRTwvdGQ+FXKfBVL6jLfq OOaxAGDeaF4sUUYuX7l7Dq NvNiI9EXch L0TcGRXohsteOb35uK9wDp JiQgY5JLjvB3TcfoX5NQRe nXYdBUntPBF7P17az6D6LK MwMDAwMDA7 pWD8yY4zrNcnqgwleQQmaF yvueGsgUjnIUsaPHrfX848 EZYevTdxFq6LAP11YY50Y9 RyPjwvdGFi bGU+PHRhYmxlIHdpZHRoPS upQMVhJaQilAexPE3xVq0f ZGVyLWNvbGxhcHNlOiBjb2 xsYXBzZTsg QD8htIxlO5GcsHJ5KBMvx1 m8Nu94C92rW4MzaSX+PGNv dUA3rFP9nZ8rJfFdLgI6YU fhS654YjHp iYXsPlpoq0hbz4zegEv0Bo BlDDHmdgBcpEioQUH0d5Qz Bw61Z24wHAuzTUTlDNHcEC UiIHZhbGln qo6tjJ4gTi3+IXZkkHM6zR B4hC5vDzEcKaN2XDavL110 UnDbpSIqRemaI64hX3YvnG A+PHRyPjx0 AHFztLmdML5hzNTgZNlgMk 8jSKY9YbInVbXmAQmaA5Im XFZowveedanuzTR2ZCFfQO IvvL09Bu3y gTdiKn8eTKBnDSX2NYOkyL CdR3KtiW2kFdZeFUPrNZSy W4ZfaARrHSfqW534QQtxLe Z4PZYhnkBr L0DkQZEgoTixTjO9l7J8Fe 7UeAfjhGLoRB1eKpIeLIa5 H0EiBjz1RWBnzBcrED7vyT FfLRhvNe4k kDhteSasIU2tRFHmbijrv0 60WbDlj4dpETCscTSaPVgd WRG8F43gm2F9HMAwIMVqEG U3dOL1jI7i bGlnbjogbGVmdDsgdmVydG grVUhnYFdxD190VZRcvHhw CxJPCdl2S2BfTet4EGYlsH usZJ2nyGPg MAggKn3ooQgdrRrsYJ3aYU Pxjnimp582XsZev8kwDZLp tGEqQWibVDY0I44wb0R7DA MwMDAwMDA7 wTC3tA7ylNnhwxeotMMavX zuurJpaSguDXnwGSjkM765 WWFrbHjlTi8NUmm7Y9HgYn u3NIBdcQfn CX8bsZZwLIpmLx5eqCtjiE grZX8iHSQxzuxjl794AtYp x9qcGTZrkSJtXRycQHK3Z3 8xu3I0KODp HNAyGBC8pOW6mI3dnRhlsx ogbGVmdDsgdmVydGljYWwt XUatY456HCYkgOhrUvFbdQ VyOjwvdGQ+ LY52jp57Z5AyVsexZgy8LS OoZQD7uKA5aW3gPQRsZGqi n4L8sVU4M6BeufWzsz1wk9 xsYXBzZTog Y29 (more content not included)... [facility] Coding Summary [employer] 64 TsvpnhfnNFa5pHu+PGhlYW Q+AW0TWBRxH66zdCGklT9U R7jHBQ5KMTYHORPEYN7DHR 8peOV6FAsfA7OemgJu ItluxPUkSE88NWk6IXS3oN cmIGlswW1gsMNdO7v5CqEn BM52tK38ILqvWDOxVlT8Ts ZpbjsgbWFy Q8nxNeDiwJOuYqu+PHRhYm xlIHdpZHRoPScxMDAlJyBz qVgcQI1pQp2hOCRwRKJlkQ xhcHNlOiBj t2llGCIiCWzwEN2utEfyA6 IosTT1WYJxd4h9Iw64rEU+ MXXsQQN2sOonWDznz549Yr Ivk0spWER1 dJDnUXloCLC2W64jq9D4UR XtHNDeFWB9zIO7uO3wcQoi resdN8JphKKnGfQ6OEY1sL NslR4bnInl ugcrwF1oDzo+X95CNR4XMJ IRTT8LEun1C4HdNcqvmMO+ MH70LUEkNW38jEDugHMqc4 gkpXz2VpXp EQIiFWW8zDbaCXjng0DwKW XiM92akQBxd5I3TMSngIro gABlJzIzeNU7rU7kWYqmuh swz9bbjzyi Spiwr5bypd51lQ43J86iRF lxTHZtWAS2HTEnZOLqpUsm yj6hbC4zDr7+SVktz8vjx0 vtsNo4UtQs ULAafyVxsVylRUC8l4DgKr 63P1JrmOowa4NsUds8xc05 bWNnt6E8iNQ2YUkpGADztR 0gDXyaSnW1 PEBdLlJrvS48zIVwRCsuXx 4vcUcewJkzYC6sPMEetkxp MYModC8hEYKjyBGbbZuwNT 4wNTBpbjtm g433IxIxCPM5YSWyoFCbB9 GpnA8tIhUdNMGiEUCvH9Nc wQRqKIgcG156FPccRsE0DF DlpgQhB6Tc HMVzmCnuAbZ1h6D2Xn3Nv9 DbtounGLD2FQpgVCFvTqF6 TgZwEyB3T1BvUuj4CSVsaR cxBG0uF2Na AJJtgjbgpevbgRS2UOXvYI RkpX33fEDbTZxzFv8fx7S8 o105DMFhMGOwzR23Gj9cbY ogMTBwdCBU wW3vgwwiu3tnaxajTaYzSC NvOWw2TMi4QTMraYfpOiPv SCF0NyB1ZMD7hXNguT8qdV wsivpflO9s Oyc+J65dcP6xKJB5SHI8mn pyWUEezcFrRI81BB76Y7Rq PjwvdGFibGU+PGRpdiBzdH zcHV7cRbVc v3brr2WbETaeO9EpGSBmQW mgKpb5OCMcSHH4iTF1qS9i KTRmVUxzx6A6qUZ9C2Wjwm Rbbp1yg4xu ZGEfEXxkL16lfTTvd0N0QC WqxKC2VCJpdHztQyMzzH34 Oyc+VGNcxRzqe6GbUwsbv5 wkm2qrgWz9 NmJcAUTqxrCezSfzGIR1r8 LzHv08A21uIQnbTBSzNPWm ZDYmPHDpyTturq2dkJ1uHi 8+PGNvbCB3 dEJ4fB5eEIJqKoK1ZGblM4 60StLejHZyXrgzt0gar3sx gZp3AnYoMMNthlCwzSqiYG G6d7SbXf65 N01sLIerVDLxDKCnKPCoFS CunFkwsl4ffZ6mDr3+PC9j a3fyox06lJ42rIO+PHRkIH S5bWvrMFen HMAqdK3aVKsqTbQ3VIPuGw QjjZ93vNJvIDkvAk7jgUtu kYteYW7tHYQtmbyba224Ty Dhi8kcCEKx aWApENwrBXR2S99xh7F7AL StMORbAOF9qFU4gX2zaBmf bjogbGVmdDsgdmVydGljYW faNFcxL009 IHRvcDsnPlBhdGllbnQgTm RaHUe5Q1PeDjb6OYDmzMer RB2ipERhCCurId1ymDhvpK jfHY1iJZZt egdzg309FmRxr7fzGOCtmS RdSGzzCYJ6H69sf4L8RWIy DIUjUJM9eTM7jC9dwSwlgk ogbGVmdDsg xpSxnEruOCanIOnoZ125MN RvcDsnPkJpcnRoIERhdGU6 JL80PT75yCCyt4C7sBK8P3 BhZGRpbmct jycdmWS4KVZbVSJwwD30Od 7maFxhTx1mPDYeYTO2GNCj oBCbL3ZjlA7kJsSlRTKuXK AyE7YpaTIn OKkiM722SKbiTyQ7DXFrmd PlM6HaJHHufFfzYeQ6u9V0 Tc1FR7B7QX22LT28gTKni9 C8gEQ9L2Kj MUGafgmrhewsmGH0YXToNY CouT34Kb4dmYpfKh9qDXYk RIA0LIHcrEVtX6PlzX0jRg AjMDAwMDAw D9CssZQkRJezG348ZZhjSx M8RNVmqeXdU7ZkHQBiiTdl FbC1q3E1Dc0NKWr6ST29EN 42tTWip3N6 gIQ5M9OaGTCihmrwwkmmcL Z9UNPvNNMeqK41Yg3ifBfc Mq1uDLTcNFV2AXJmgQJrT4 DdjJ4rBeHm UWLzATDqJ1IyySDdQJmkT5 38MJkzFzK2FHRlxrMiW7Od BNZdcDvnDiW1w1P3Zh1BRS DnOB64IDC7 aSA7NC20GC65X9YvBhstdK FibGU+PHRhYmxlIHdpZHRo XCdaPCNdHtSwzXouES0hDm 9yZGVyLWNv sHswtOZqLmAhh6keCMOdOP txXG5thGqaB9QizWP0UUPd o8x9Sg70H01qC6JenSJ+PG GqiSR5tSB1 rN8yTjOcEjD7IVufT949Hr NzaJRoOnath3xya4jpaMx6 LqP2OYXupfIctFwuGOE2h4 FxGw99E87b IHdpZHRoPSIxNSUiIHZhbG yvzt2szH2jQl8+PGNvbCB3 gED4wZ9oKkAkAzX1SWyfV0 49InRvcCIv Ckmvw1szv4zjaFu1OpPpUA YsykWuwBogUJS9o2AfLw13 J0NnkPmho8DkKvp6fi73oW Uqq7P2dVV0 E9GrTBTchjdtuQDydWcuWM 2hEWIccnnsDCIduG8oMIHv K6w7FvEmDdK0ROriZ9Bdzf Q4GKJwvSVt NGfoVXA4L37zd0U2EFVuXI UnOGG4sEU9rB3efDluboqs bGVmdDsgdmVydGljYWwtYW yfY842TIWk xGhaUOPlfP3hMXSejEYuoL icRY1tGBJlqhjvHzhRHGIY RVIsIEJBUkJBUkEgRzwvdG Q+PHRkIHN0 lZucOBmwHVSylR2dBISqD8 m5ZuGcFpB5RAnlP6KjOLYm mqedQu91uI7nHpMhReK1MF uhP2EfyiX5 FOQscZAbMJnwLJR6H72ul2 R5DCTrIBTmIHD3eHY7cT7w bGlnbjogbGVmdDsgdmVydG ljYWwtYWxp S483QLZplBweWbT9FcE1Sb J4IQC3X4EkYfq7LYKybYvr MB5icMOfWPzcVk0ciYqziO glLK7hMPTv dbuaEEJprQ1eMGKeoINouB vvBW4lCDCwrwlll252LzQr LIM7TMKarGDnD1MzbQ5hJi AjMDAwMDAw Y2XdeWLzRYwnU350RYyoKn B8GVIoaiNiH5JmZMXwoTer JhM6v4P4Kp76VVARBFCabr wvdGQ+PHRk VDI1xFhzWTwoCLJycE3fXN ThY6p8EdWwLeM4BXspC2Ng WXQlgdeaNx94rI8gAcZlYe X5DHxpM8Oe kkJ6SZKpfDIrQIfhVXA8O6 8fc4X3OSNqPSOqSOM0gAI1 uQ4lbLzyvvuqoULupKmxla VydGljYWwt ZSbfE233MXKmrKtxCjRXBK FMRTwvdGQ+PODtZCX4iTck IYglKIXkrJ9ePLNrZ1b7Cs AlAjX4TRcs D4KdEJTyyojqLp27rQ7dIh YjBtL7WEmrM1FyaqA8FXOf cNFhWHprDQU4H90pv1E1EO MwMDAwMDA7 lVT2cY5caTqxxeumcJRduY xlyaJwaOnsNJywBKjhX522 ZISciDxwJtEcVKShEH2ewU wvdGQ+PC90 ok20K1VbJjrcEef8HPZsEH X5lTC3qV8sYAQqZKqir6B2 sNM0E5WbpqVayd1an9wpGE CqXChcY78j ePWxs1E6JAOwhSJ0VESepV kcRySoqD28Pgp+PGNvbGdy t1EyUrget6uzs7ejxNg6Uq MwJSIgdmFs cXanSPC5w6XhAm66T90sQS dpZHRoPSIzMCUiIHZhbGln iv5lsR2bNs6+KWDfsCM1cX Q3mG6sMlHk NlP8YRmvM118YeGmgFUwAo yxm2cko8yplKb6MpGjPZEl zwXhmBqmLAG7i6IbPy66D8 PhjEhcc4Qa Fxi9hb32wZPvf0E3nNV9V1 XrNIMocbteaYQnkKvzAH6b XYFxvouySNYfjD5xCIKaJ2 j8FjAhAgD6 CJqeE5WexmR8JOSwqZGsMO HqvXABmF1wpcpcg1vuelaw LjCjWNDwUYo8PHq7XMXweP duOiBsZWZ0 DhX6BGU0oZOlbV5ovMogax ppuD5rAnm+PGr8t3mroGSz PB7spSM5YQ07PB30yTTed9 Q4oLH4Q3Ft UNXstzgmxwwwhCV9JIDqET WdwX71Vd5iwCtdRn4qEGZl QCT5LBXkeQNaR0UjuA3sCv AjMDAwMDAw D7NirLJkCLpcF881TPnzXl R5OPVpdoJuW3AmWDZajQwg ZpG3l8N6Qq7WHW09HV36EI 60eJUfs0I1 zWC6R2EwQVOfhlhhgnbckO E7EDHcOHJovO11Bm2vbXgq Lz3pWZUfQVG5MIYppICvQ3 ThvW7cBaQs GWCuQNVrN8KpcPHhTMmzJ0 82LOdtZfN6MPLslvDlZ5Kk NNJmkGblVhO7a7N0Ir3YXt 70NG12RF62 dWDfi2Y5oAO9Q6BwHERbam vwzhnnjCH6ASFnYOOikR35 Dz9hnPhjUz7lYBXmEYM5JE AekVYyD4Gb kF2hPfOkVVIgGBGsR9DccH SyXYinF879PWswNzV8YLTp jwSaW7VqDYPruBioFbH1q8 R0Or7CRXdy sod3S6EoZrjjmNS+PC90YW QsBT24uVJilNNij1yhbFb8 HfQqUQQkLLH3xDmnCXkxr4 OyOQYzU63l bGF (more content not included)... Normal [facility] CT Head or Brain w/o Contras ton [...] MD 12/14/21 6:37 pm Technologist: MARCY Berg [facility] ED Clinical Summaryon 2021 ED Clinical Summary [facility] - Emergency Department [address] [place] [address] ED Clinical Summary PERSON INFORMATION Name: SD REHMAN Age: 71 Years Sex: FEMALE : 1950 MRN: Acct#: Visit Reason: Closed head injury without LOC; FALL-HEAD/RT WRIST INJURY Arrival: 12/14/2021 17:41:04 Discharge: 12/14/2021 18:56:00 LOS: 000 01:15 Check In: 12/14/2021 17:41:04 Checkout:12/14/2021 18:56:00 Address: [address] [place] [address] PCP: PATRICK ODOM PROVIDER INFORMATION Provider Role [...] 12/14/2021 [employer] (more content not included)... [facility] ED Note - Physicianon 2021 ED [...] Regular r (more content not included)... Normal [facility] ED Note-Nursingon 12-14-2021 ED Note-Nursing PA(KIM) washed skin tear with saline and betasept, see PA note. Nonstick dressing and gauze wrapped around site. Normal [facility] ED Note-Nursing Patient arrives afte r falling from the first step on her camper. Patient did hit her head, no LOC. Hematoma. Patient has c/o right knee pain and right wrist pain. Small skin tear on right wrist. Patient does take blood thinners. Alert and oriented. Event occurred around 1600. Normal [facility] ED Patient Summaryon 022 ED Patient Summary [facility] - Emergency Department [address] [place] [id number] PATIENT DISCHARGE INSTRUCTIONS Patient Information Name: SD REHMAN Age: 71 Years Date of : 1950 Reason For Visit: Closed head injury without LOC; FALL-HEAD/RT WRIST INJURY Arrival Time: 12/14/2021 17:41:04 Primary Care Physician: PATRICK ODOM Attending Physician: Elijah Terrazas MD Comment: Visit Diagnosis: Diagnoses This Visit Closed head injury without LOC ([id number]) Closed head injury without loss of consciousness (S09.90XA) Contusion of right knee (S80.01) Elevated blood pressure reading (R03.0) Fall (on) (from) other stairs and steps (W10.8) Skin tear of right upper extremity (S41.111A) The Pharmacy at [facility] is open Thursday through Thursday from 9A [...] alcohol and/or drug addiction problems; contact the [facility] 13/10 Crisis Hotline -Text [phone] fm [phone]. If you received any narcotics, sedation, or [...] any legal documents With: Address: When: [place] [address] [facility] (1) Within 3 to 5 days Comments: [...] and treatment you received today in the [facility] Emergency Department were for an urgent problem and are not intended as complete care. It is important for you to follow up with a doctor, nurse practitioner, or physician?s bookkeeper assistant for ongoing care. If your symptoms [...] so we can reach you if necessary. [facility] Emergency Department has provided you with a complete list of medications post discharge. 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 [facility] XR Knee Complete Righton XR Knee [...] MD 12/14/21 6:23 pm Technologist: Kristen RODAS [facility] Covid-19 PCR (CVDTB)on 11-21 SARS-CoV-2 (COVID-19) RNA GABRIELA+probe Ql (Unsp spec) Not detected Normal NOT DETECTED [facility] Comment on above: Result Comment: This test is not yet approved or cleared by the [place] FDA. When there are no FDA-approved or cleared tests available, and other criteria are met, FDA can make tests available under an emergency access mechanism called an Emergency Use Authorization (EUA). The EUA for this test is supported by the [place] of Health and Human Service's (HHS's) declaration [...] By: #### M G, RENAL, URIC #### [facility] [address] [place] [address] Dr. Demetra Costa BNPon 11-21-2021 Natriuretic peptide B (Bld) [Mass/Vol] 234.0 pg/mL Normal <=900.0 [facility] Comment on above: Performed By: #### U PARESH, CMP #### [facility] [address] [place] [address] Dr. Demetra Costa CBC AUTO DIFFon 11-21-2021 BASO # 0.1 103/ul Normal 0.0-0.1 [facility] Comment on above: Performed By: #### C BC #### [facility] [address] [place] [address] Dr. Demetra Costa Basophils/100 WBC (Bld) 0.4 % Normal 0.2-2.0 [facility] Comment on above: Performed By: #### C BC #### [facility] [address] [place] [address] Dr. Demetra Costa EO # 0.2 103/ul Normal 0.0-0.7 [facility] Comment on above: Performed By: #### C BC #### [facility] [address] [place] [address] Dr. Demetra Costa Eosinophils/100 WBC (Bld) 1.3 % Normal 0.9-7.0 [facility] Comment on above: Performed By: #### C BC #### [facility] [address] [place] [address] Dr. Demetra Costa Erythrocyte distribution width (RBC) [Ratio] 16.3 % Critically high 11.0-15.0 [facility] Comment on above: Performed By: #### C BC #### [facility] [address] [place] [address] Dr. Demetra Costa Hematocrit (Bld) [Volume fraction] 35.9 % Critically low 36.0-48.0 [facility] Comment on above: Performed By: #### C BC #### [facility] [address] [place] [address] Dr. Demetra Costa Hemoglobin (Bld) [Mass/Vol] 12.1 g/dL Normal 12.0-16.0 [facility] Comment on above: Performed By: #### C BC #### [facility] [address] [place] [address] Dr. Demetra Costa IG # 0.08 10e3/ul Critically high 0.00-0.03 [facility] Comment on above: Performed By: #### C BC #### [facility] [address] [place] [address] Dr. Demetra Cosat IG % 0.6 % Critically high 0.0-0.5 [facility] Comment on above: Performed By: #### C BC #### [facility] [address] [place] [address] Dr. Demetra Costa LYMPH # 2.0 103/ul Normal 1.2-3.8 [facility] Comment on above: Performed By: #### C BC #### [facility] [address] [place] [address] Dr. Demetra Costa Lymphocytes/100 WBC (Bld) 14.8 % Critically low 20.5-60.0 [facility] Comment on above: Performed By: #### C BC #### [facility] [address] [place] [address] Dr. Demetra Costa MANUAL DIFF REQ NO Normal [facility] Comment on above: Performed By: #### C BC #### [facility] [address] [place] [address] Dr. Demetra Costa MCH (RBC) [Entitic mass] 34.5 pg Critically high 26.7-34.0 [facility] Comment on above: Performed By: #### C BC #### [facility] [address] [place] [address] Dr. Demetra Costa MCHC (RBC) [Mass/Vol] 33.7 g/dL Normal 29.9-35.2 [facility] Comment on above: Performed By: #### C BC #### [facility] [address] [address] [address] Demetra Costa MCV (RBC) [Entitic vol] 102.3 fL Critically high 81.0-99.0 [facility] Comment on above: Performed By: #### C BC #### [facility] [address] [address] [address] Demetra Costa MONO # 1.1 103/ul Critically high 0.3-0.8 [facility] Comment on above: Performed By: #### C BC #### [facility] [address] [place] [address] Dr. Demetra Costa Monocytes/100 WBC (Bld) 8.1 % Normal 1.7-12.0 [facility] Comment on above: Performed By: #### C BC #### [facility] [address] [place] [address] Dr. Demetra Costa NEUT # 10.0 103/ul Critically high 1.4-6.5 [facility] Comment on above: Performed By: #### C BC #### [facility] [address] [place] [address] Dr. Demetra Costa Neutrophils/100 WBC (Bld) 74.8 % Normal 43.0-75.0 [facility] Comment on above: Performed By: #### C BC #### [facility] [address] [address] [address] Demetra Costa Platelet mean volume (Bld) [Entitic vol] 9.8 fL Normal 9.5-13.5 [facility] Comment on above: Performed By: #### C BC #### [facility] [address] [place] [address] Dr. Demetra Costa PLT 254 103/ul Normal 150-450 [facility] Comment on above: Performed By: #### C BC #### [facility] [address] [place] [address] Dr. Demetra Costa RBC 3.51 106/ul Critically low 4.20-5.40 [facility] Comment on above: Performed By: #### C BC #### [facility] [address] [place] [address] Dr. Demetra Costa WBC 13.4 103/ul Critically high 4.0-11.0 [facility] Comment on above: Performed By: #### C BC #### [facility] [address] [address] [address] Demetra Costa PROF CHEM 8 (BAS METB)on Anion gap [Moles/Vol] 12.8 mmol/L Normal [facility] Comment on above: Performed By: #### U PARESH, CMP #### [facility] [address] [place] [address] Dr. Demetra Costa Calcium [Mass/Vol] 8.8 mg/dL Normal 8.5-10.1 [facility] Comment on above: Performed By: #### U PARESH, CMP #### [facility] [address] [place] [address] Dr. Demetra Costa Chloride [Moles/Vol] 104 mmol/L Normal 98-107 [facility] Comment on above: Performed By: #### U PARESH, CMP #### [facility] [address] [place] [address] Dr. Demetra Costa CO2 [Moles/Vol] 25.6 mmol/L Normal 21.0-32.0 [facility] Comment on above: Performed By: #### U PARESH, CMP #### [facility] [address] [place] [address] Dr. Demetra Costa Creatinine [Mass/Vol] 1.51 mg/dL Critically high 0.55-1.02 [facility] Comment on above: Performed By: #### U PARESH, CMP #### [facility] [address] [place] [address] Dr. Demetra Costa EGFR-AF DJIBOUTIAN 41 mL/min/1.73m2 Critically low >=60 [facility] Comment on above: Performed By: #### U PARESH, CMP #### [facility] [address] [place] [address] Dr. Demetra Costa EGFR-NON AF DJIBOUTIAN 34 mL/min/1.73m2 Critically low >=60 [facility] Comment on above: Performed By: #### U PARESH, CMP #### [facility] [address] [address] [address] Demetra Costa Glucose [Mass/Vol] 103 mg/dL Normal 74-106 [facility] Comment on above: Performed By: #### U PARESH, CMP #### [facility] [address] [address] [address] Demetra Costa Potassium [Moles/Vol] 5.4 mmol/L Critically high 3.5-5.1 [facility] Comment on above: Performed By: #### U PARESH, CMP #### [facility] [address] [address] [address] Demetra Costa Sodium [Moles/Vol] 137 mmol/L Normal 136-145 [facility] Comment on above: Performed By: #### U PARESH, CMP #### [facility] [address] [address] [address] Demetra Costa Urea nitrogen [Mass/Vol] 35.0 mg/dL Critically high 7.0-18.0 [facility] Comment on above: Performed By: #### U PARESH, CMP #### [facility] [address] [place] [address] Dr. Demetra Costa Urea nitrogen/Creatinine [Mass ratio] 23.2 mg/mg Normal [facility] Comment on above: Performed By: #### U PARESH, CMP #### [facility] [address] [place] [address] Dr. Demetra Costa US LYNDA DOP LEG [...] ASHLEY WEAVER Date: 2021-11-21 21:28 Normal [facility] XR CHEST 2 Von 11-21-2021 XR CHEST [...] NGHIA ANGUIANO Date: 2021-11-21 19:16 Normal [facility] CT LUNG CANCER SCREENINGon 0 11-05-2021 CT [...] TERESA AZUL Date: 2021-11-05 06:49 Normal [facility] IMMUNOFIX ELEC, PROTEIN ELEC URINEon 10-01-2021 Albumin, U 72.1 % Normal [facility] Comment on above: Performed By: #### U PARESH, CMP #### [facility] [address] [place] [address] Dr. Demetra Costa Mrooi-8-Betobtrr, U 1.4 % Normal [facility] Comment on above: Performed By: #### U PARESH, CMP #### [facility] [address] [address] [address] Demetra Costa Nalms-2-Rpdbyvwa, U 6.1 % Normal [facility] Comment on above: Performed By: #### U PARESH, CMP #### [facility] [address] [address] [address] Demetra Costa Beta Globulin, U 14.6 % Normal [facility] Comment on above: Performed By: #### U PARESH, CMP #### [facility] [address] [address] [address] Demetra Costa Gamma Globulin, U 5.8 % Normal [facility] Comment on above: Performed By: #### U PARESH, CMP #### [facility] [address] [address] [address] Demetra Costa Immunofixation Result, Urine Comment Normal [facility] Comment on above: Result Comment: No m onoclonality detected. Performed By: #### U PARESH, CMP #### [facility] [address] [address] [address] Yilan Costa M-Evans, % Not Observed Normal Not Observed [facility] Comment on above: Performed By: #### U PARESH, CMP #### [facility] [address] [place] [address] Dr. Demetra Costa Note: Comment Normal [facility] Comment on above: Result Comment: Prot ein electrophoresis scan will follow via computer, mail, or insurance defense attorney delivery. Performed By: #### U PARESH, CMP #### [facility] [address] [place] [address] Dr. Demetra Costa PDF . Normal [facility] Comment on above: Performed By: #### U PARESH, CMP #### [facility] [address] [place] [address] Dr. Demetra Costa Protein (U) [Mass/Vol] 79.0 mg/dL Normal Not Estab. [facility] Comment on above: Performed By: #### U PARESH, CMP #### [facility] [address] [place] [address] Dr. Demetra Costa IMMUNOFIXATION(NISHA),PROTEIN ELEC(PE),[facility] 09-28-2021 Albumin [Mass/Vol] 3.5 g/dL Normal 2.9-4.4 [facility] Comment on above: Performed By: #### I FEPEFL #### [facility] [address] [place] [address] Dr. Demetra Costa Albumin/Globulin [Mass ratio] 1.3 {ratio} Normal 0.7-1.7 [facility] Comment on above: Performed By: #### I FEPEFL #### [facility] [address] [place] [address] Dr. Demetra Costa Tdkuf-8-Wpkeexlh 0.3 g/dL Normal 0.0-0.4 [facility] Comment on above: Performed By: #### I FEPEFL #### [facility] [address] [place] [address] Dr. Demetra Costa Gktwv-4-Tsooxxwc 1.1 g/dL Critically high 0.4-1.0 [facility] Comment on above: Performed By: #### I FEPEFL #### [facility] [address] [address] [address] Demetra Costa Beta Globulin 1.1 g/dL Normal 0.7-1.3 [facility] Comment on above: Performed By: #### I FEPEFL #### [facility] [address] [address] [address] Demetra Costa Free Crosspointe Lt Chains,S 19.2 mg/L Normal 3.3-19.4 [facility] Comment on above: Performed By: #### I FEPEFL #### [facility] [address] [address] [address] Demetra Costa Free Lambda Lt Chains,S 20.6 mg/L Normal 5.7-26.3 [facility] Comment on above: Performed By: #### I FEPEFL #### [facility] [address] [place] [address] Dr. Demetra Costa Gamma Globulin 0.4 g/dL Normal 0.4-1.8 [facility] Comment on above: Performed By: #### I FEPEFL #### [facility] [address] [place] [address] Dr. Demetra Costa Globulin (S) [Mass/Vol] 2.9 g/dL Normal 2.2-3.9 [facility] Comment on above: Performed By: #### I FEPEFL #### [facility] [address] [place] [address] Dr. Demetra Costa Immunofixation Result, Serum Comment Normal [facility] Comment on above: Result Comment: No m onoclonality detected. Performed By: #### I FEPEFL #### [facility] [address] [place] [address] Dr. Demetra Costa Immunoglobulin A, Qn, Serum 171 mg/dL Normal 87-352 [facility] Comment on above: Performed By: #### I FEPEFL #### [facility] [address] [address] [address] Demetra Costa Immunoglobulin G, Qn, Serum 470 mg/dL Critically low 586-1602 [facility] Comment on above: Performed By: #### I FEPEFL #### [facility] [address] [place] [address] Dr. Demetra Costa Immunoglobulin M, Qn, Serum 29 mg/dL Normal 26-217 [facility] Comment on above: Performed By: #### I FEPEFL #### [facility] [address] [place] [address] Dr. Demetra Costa Crosspointe/Lambda Ratio, S 0.93 Normal 0.26-1.65 [facility] Comment on above: Performed By: #### I FEPEFL #### [facility] [address] [place] [address] Dr. Demetra Costa M-Evans Not Observed Normal Not Observed [facility] Comment on above: Performed By: #### I FEPEFL #### [facility] [address] [place] [address] Dr. Demetra Costa PDF . Normal [facility] Comment on above: Performed By: #### I FEPEFL #### [facility] [address] [place] [address] Dr. Demetra Costa Please note: Comment Normal [facility] Comment on above: Result Comment: Prot ein electrophoresis scan will follow via computer, mail, or insurance defense attorney delivery. Performed By: #### I FEPEFL #### [facility] [address] [place] [address] Dr. Demetra Costa Protein [Mass/Vol] 6.4 g/dL Normal 6.0-8.5 [facility] Comment on above: Performed By: #### I FEPEFL #### [facility] [address] [place] [address] Dr. Demetra Costa CBC AUTO DIFFon 09-19-2021 BASO # 0.1 103/ul Normal 0.0-0.1 [facility] Comment on above: Performed By: #### M G, RENAL, URIC #### [facility] [address] [place] [address] Dr. Demetra Costa Basophils/100 WBC (Bld) 0.6 % Normal 0.2-2.0 [facility] Comment on above: Performed By: #### M G, RENAL, URIC #### [facility] [address] [place] [address] Dr. Demetra Costa EO # 0.1 103/ul Normal 0.0-0.7 [facility] Comment on above: Performed By: #### M G, RENAL, URIC #### [facility] [address] [place] [address] Dr. Demetra Costa Eosinophils/100 WBC (Bld) 1.2 % Normal 0.9-7.0 [facility] Comment on above: Performed By: #### M G, RENAL, URIC #### [facility] [address] [place] [address] Dr. Demetra Costa Erythrocyte distribution width (RBC) [Ratio] 15.0 % Normal 11.0-15.0 [facility] Comment on above: Performed By: #### M G, RENAL, URIC #### [facility] [address] [place] [address] Dr. Demetra Costa Hematocrit (Bld) [Volume fraction] 40.6 % Normal 36.0-48.0 [facility] Comment on above: Performed By: #### M G, RENAL, URIC #### [facility] [address] [place] [address] Dr. Demetra Costa Hemoglobin (Bld) [Mass/Vol] 13.4 g/dL Normal 12.0-16.0 [facility] Comment on above: Performed By: #### M G, RENAL, URIC #### [facility] [address] [place] [address] Dr. Demetra Costa IG # 0.04 10e3/ul Critically high 0.00-0.03 [facility] Comment on above: Performed By: #### M G, RENAL, URIC #### [facility] [address] [place] [address] Dr. Demetra Costa IG % 0.4 % Normal 0.0-0.5 [facility] Comment on above: Performed By: #### M G, RENAL, URIC #### [facility] [address] [place] [address] Dr. Demetra Costa LYMPH # 2.3 103/ul Normal 1.2-3.8 [facility] Comment on above: Performed By: #### M G, RENAL, URIC #### [facility] [address] [place] [address] Dr. Demetra Costa Lymphocytes/100 WBC (Bld) 22.8 % Normal 20.5-60.0 [facility] Comment on above: Performed By: #### M G, RENAL, URIC #### [facility] [address] [place] [address] Dr. Demetra Costa MANUAL DIFF REQ NO Normal [facility] Comment on above: Performed By: #### M G, RENAL, URIC #### [facility] [address] [place] [address] Dr. Demetra Costa MCH (RBC) [Entitic mass] 33.3 pg Normal 26.7-34.0 [facility] Comment on above: Performed By: #### M G, RENAL, URIC #### [facility] [address] [place] [address] Dr. Demetra Costa MCHC (RBC) [Mass/Vol] 33.0 g/dL Normal 29.9-35.2 [facility] Comment on above: Performed By: #### M G, RENAL, URIC #### [facility] [address] [place] [address] Dr. Demetra Costa MCV (RBC) [Entitic vol] 101.0 fL Critically high 81.0-99.0 [facility] Comment on above: Performed By: #### M G, RENAL, URIC #### [facility] [address] [place] [address] Dr. Demetra Costa MONO # 0.7 103/ul Normal 0.3-0.8 [facility] Comment on above: Performed By: #### M G, RENAL, URIC #### [facility] [address] [place] [address] Dr. Demetra Costa Monocytes/100 WBC (Bld) 7.1 % Normal 1.7-12.0 [facility] Comment on above: Performed By: #### M G, RENAL, URIC #### [facility] [address] [address] [address] Demetra Costa NEUT # 7.0 103/ul Critically high 1.4-6.5 [facility] Comment on above: Performed By: #### M G, RENAL, URIC #### [facility] [address] [address] [address] Demetra Costa Neutrophils/100 WBC (Bld) 67.9 % Normal 43.0-75.0 [facility] Comment on above: Performed By: #### M G, RENAL, URIC #### [facility] [address] [address] [address] Demetra Costa Platelet mean volume (Bld) [Entitic vol] 9.4 fL Critically low 9.5-13.5 [facility] Comment on above: Performed By: #### M G, RENAL, URIC #### [facility] [address] [place] [address] Dr. Demetra Costa PLT 268 103/ul Normal 150-450 [facility] Comment on above: Performed By: #### M G, RENAL, URIC #### [facility] [address] [address] [address] Demetra Costa RBC 4.02 106/ul Critically low 4.20-5.40 [facility] Comment on above: Performed By: #### M G, RENAL, URIC #### [facility] [address] [place] [address] Dr. Demetra Costa WBC 10.3 103/ul Normal 4.0-11.0 [facility] Comment on above: Performed By: #### M G, RENAL, URIC #### [facility] [address] [place] [address] Dr. Demetra Costa GLYCOHEMOGLOBIN A1Con 2021 ADA RECOMMENDATION SEE BELOW Normal [facility] Comment on above: Result Comment: ADA RECOMMENDED LIMIT 4.0 - 6.0 ADA THERAPEUTIC TARGET < 7.0 ACTION SUGGESTED > 7.0 Performed By: #### A 1C #### [facility] [address] [place] [address] Dr. Demetra Costa Glucose [Mass/Vol] 123 mg/dL Normal [facility] Comment on above: Performed By: #### A 1C #### [facility] [address] [place] [address] Dr. Demetra Costa HbA1c (Bld) [Mass fraction] 5.9 % Normal 4.5-6.2 [facility] Comment on above: Performed By: #### A 1C #### [facility] [address] [place] [address] Dr. Demetra Costa PROF 14(COMP METB)on 022 Albumin [Mass/Vol] 3.2 g/dL Critically low 3.4-5.0 [facility] Comment on above: Performed By: #### U PARESH, CMP #### [facility] [address] [place] [address] Dr. Demetra Costa Albumin/Globulin [Mass ratio] 0.9 {ratio} Normal [facility] Comment on above: Performed By: #### U PARESH, CMP #### [facility] [address] [place] [address] Dr. Demetra Costa ALP [Catalytic activity/Vol] 88 U/L Normal 46-116 [facility] Comment on above: Performed By: #### U PARESH, CMP #### [facility] [address] [place] [address] Dr. Demetra Costa ALT [Catalytic activity/Vol] 25 U/L Normal 14-59 [facility] Comment on above: Performed By: #### U PARESH, CMP #### [facility] [address] [place] [address] Dr. Demetra Costa Anion gap [Moles/Vol] 15.4 mmol/L Normal [facility] Comment on above: Performed By: #### U PARESH, CMP #### [facility] [address] [place] [address] Dr. Demetra Costa AST [Catalytic activity/Vol] 11 U/L Critically low 15-37 [facility] Comment on above: Performed By: #### U PARESH, CMP #### [facility] [address] [place] [address] Dr. Demetra Costa Bilirubin [Mass/Vol] 0.4 mg/dL Normal 0.2-1.0 [facility] Comment on above: Performed By: #### U PARESH, CMP #### [facility] [address] [address] [address] Demetra Costa Calcium [Mass/Vol] 9.3 mg/dL Normal 8.5-10.1 [facility] Comment on above: Performed By: #### U PARESH, CMP #### [facility] [address] [address] [address] Demetra Costa Chloride [Moles/Vol] 102 mmol/L Normal 98-107 [facility] Comment on above: Performed By: #### U PARESH, CMP #### [facility] [address] [place] [address] Dr. Demetra Costa CO2 [Moles/Vol] 24.6 mmol/L Normal 21.0-32.0 [facility] Comment on above: Performed By: #### U PARESH, CMP #### [facility] [address] [place] [address] Dr. Demetra Costa Creatinine [Mass/Vol] 1.35 mg/dL Critically high 0.55-1.02 [facility] Comment on above: Performed By: #### U PARESH, CMP #### [facility] [address] [place] [address] Dr. Demetra Costa EGFR-AF DJIBOUTIAN 47 mL/min/1.73m2 Critically low >=60 [facility] Comment on above: Performed By: #### U PARESH, CMP #### [facility] [address] [place] [address] Dr. Demetra Costa EGFR-NON AF DJIBOUTIAN 39 mL/min/1.73m2 Critically low >=60 [facility] Comment on above: Performed By: #### U PARESH, CMP #### [facility] [address] [place] [address] Dr. Demetra Costa Globulin (S) [Mass/Vol] 3.7 g/dL Normal [facility] Comment on above: Performed By: #### U PARESH, CMP #### [facility] [address] [place] [address] Dr. Demetra Costa Glucose [Mass/Vol] 109 mg/dL Critically high 74-106 [facility] Comment on above: Performed By: #### U PARESH, CMP #### [facility] [address] [address] [address] Demetra Costa Potassium [Moles/Vol] 5.0 mmol/L Normal 3.5-5.1 [facility] Comment on above: Performed By: #### U PARESH, CMP #### [facility] [address] [place] [address] Dr. Demetra Costa Protein [Mass/Vol] 6.9 g/dL Normal 6.4-8.2 [facility] Comment on above: Performed By: #### U PARESH, CMP #### [facility] [address] [place] [address] Dr. Demetra Costa Sodium [Moles/Vol] 137 mmol/L Normal 136-145 [facility] Comment on above: Performed By: #### U PARESH, CMP #### [facility] [address] [place] [address] Dr. Demetra Costa Urea nitrogen [Mass/Vol] 28.0 mg/dL Critically high 7.0-18.0 [facility] Comment on above: Performed By: #### U PRAESH, CMP #### [facility] [address] [place] [address] Dr. Demetra Costa Urea nitrogen/Creatinine [Mass ratio] 20.7 mg/mg Normal [facility] Comment on above: Performed By: #### U PARESH, CMP #### [facility] [address] [place] [address] Dr. Demetra Costa UA RANDOM W/MICROSCOPICon BACTERIA TRACE Abnormal NONE SEEN [facility] Comment on above: Performed By: #### M G, RENAL, URIC #### [facility] [address] [place] [address] Dr. Demetra Costa Bilirubin Ql (U) Negative Normal NEGATIVE [facility] Comment on above: Performed By: #### M G, RENAL, URIC #### [facility] [address] [place] [address] Dr. Demetra Costa CAST NONE SEEN Normal NONE SEEN [facility] Comment on above: Performed By: #### M G, RENAL, URIC #### [facility] [address] [address] [address] Demetra Costa Clarity (U) SL CLOUDY Abnormal CLEAR [facility] Comment on above: Performed By: #### M G, RENAL, URIC #### [facility] [address] [address] [address] Demetra Costa Color (U) LT. YELLOW Normal YELLOW [facility] Comment on above: Performed By: #### M G, RENAL, URIC #### [facility] [address] [address] [address] Demetra Costa Crystals LM Nom (Urine sed) NONE SEEN Normal NONE SEEN [facility] Comment on above: Performed By: #### M G, RENAL, URIC #### [facility] [address] [place] [address] Dr. Demetra Costa Epithelial cells LM Ql (Urine sed) FEW Abnormal NONE SEEN /RARE [facility] Comment on above: Performed By: #### M G, RENAL, URIC #### [facility] [address] [address] [address] Demetra Costa Glucose Ql (U) Negative Normal NEGATIVE [facility] Comment on above: Performed By: #### M G, RENAL, URIC #### [facility] [address] [address] [address] Demetra Costa Hemoglobin Ql (U) Negative Normal NEGATIVE [facility] Comment on above: Performed By: #### M G, RENAL, URIC #### [facility] [address] [address] [address] Demetra Costa Ketones Ql (U) Negative Normal NEGATIVE [facility] Comment on above: Performed By: #### M G, RENAL, URIC #### [facility] [address] [address] [address] Demetra Costa LEUKOCYTES Negative Normal NEGATIVE [facility] Comment on above: Performed By: #### M G, RENAL, URIC #### [facility] [address] [address] [address] Demetra Costa MUCOUS NONE SEEN Normal NONE SEEN [facility] Comment on above: Performed By: #### M G, RENAL, URIC #### [facility] [address] [address] [address] Demetra Costa Nitrite Ql (U) Negative Normal NEGATIVE [facility] Comment on above: Performed By: #### M G, RENAL, URIC #### [facility] [address] [place] [address] Dr. Demetra Costa pH (U) 7.0 [pH] Normal 5-9 [facility] Comment on above: Performed By: #### M G, RENAL, URIC #### [facility] [address] [place] [address] Dr. Demetra Costa RBC 0-2 Normal 0-2 [facility] Comment on above: Performed By: #### M G, RENAL, URIC #### [facility] [address] [place] [address] Dr. Demetra Costa SPEC GRAVITY 1.010 Normal 1.005-<=1.025 [facility] Comment on above: Performed By: #### M G, RENAL, URIC #### [facility] [address] [place] [address] Dr. Demetra Costa UA PROTEIN Negative Normal NEGATIVE/ TRACE [facility] Comment on above: Performed By: #### M G, RENAL, URIC #### [facility] [address] [place] [address] Dr. Demetra Costa Urobilinogen Qn (U) 0.2 {Favio'U}/dL Normal 0.2 - 1. 0 [facility] Comment on above: Performed By: #### M G, RENAL, URIC #### [facility] [address] [place] [address] Dr. Demetra Costa WBC NONE SEEN Normal NONE SEEN [facility] Comment on above: Performed By: #### M G, RENAL, URIC #### [facility] [address] [place] [address] Dr. Demetra Costa URIC ACID SERUMon 09-19-2021 Urate [Mass/Vol] 3.4 mg/dL Normal 2.6-6.0 [facility] Comment on above: Performed By: #### U PARESH, CMP #### [facility] [address] [place] [address] Dr. Demetra Costa URINE T PROTEIN CREAT RATIOo n 09-19-2021 Protein (U) [Mass/Vol] 22.8 mg/dL Critically high <=12.0 [facility] Comment on above: Performed By: #### U PARESH, CMP #### [facility] [address] [place] [address] Dr. Demetra Costa UR PROT CREAT RAT 1.18 Normal [facility] Comment on above: Performed By: #### U PARESH, CMP #### [facility] [address] [place] [address] Dr. Demetra Costa URINE CREAT 19.38 mg/dL Critically low 20.00-300.00 [facility] Comment on above: Performed By: #### U PARESH, CMP #### [facility] [address] [place] [address] Dr. Demetra Costa PTH INTACTon 09-17-2021 PTH, Intact 49 pg/mL Normal 15-65 [facility] Comment on above: Performed By: #### M G, RENAL, URIC #### [facility] [address] [place] [address] Dr. Demetra Costa HEMOGRAM AND PLATELon 2021 Hematocrit (Bld) [Volume fraction] 40.3 % Normal 36.0-48.0 [facility] Comment on above: Performed By: #### M G, RENAL, URIC #### [facility] [address] [place] [address] Dr. Demetra Costa Hemoglobin (Bld) [Mass/Vol] 13.2 g/dL Normal 12.0-16.0 [facility] Comment on above: Performed By: #### M G, RENAL, URIC #### [facility] [address] [place] [address] Dr. Demetra Costa MCH (RBC) [Entitic mass] 33.2 pg Normal 26.7-34.0 [facility] Comment on above: Performed By: #### M G, RENAL, URIC #### [facility] [address] [place] [address] Dr. Demetra Costa MCHC (RBC) [Mass/Vol] 32.8 g/dL Normal 29.9-35.2 [facility] Comment on above: Performed By: #### M G, RENAL, URIC #### [facility] [address] [place] [address] Dr. Demetra Costa MCV (RBC) [Entitic vol] 101.3 fL Critically high 81.0-99.0 [facility] Comment on above: Performed By: #### M G, RENAL, URIC #### [facility] [address] [place] [address] Dr. Demetra Costa PLT 279 103/ul Normal 150-450 [facility] Comment on above: Performed By: #### M G, RENAL, URIC #### [facility] [address] [place] [address] Dr. Demetra Costa RBC 3.98 106/ul Critically low 4.20-5.40 [facility] Comment on above: Performed By: #### M G, RENAL, URIC #### [facility] [address] [place] [address] Dr. Demetra Costa WBC 12.5 103/ul Critically high 4.0-11.0 [facility] Comment on above: Performed By: #### M G, RENAL, URIC #### [facility] [address] [place] [address] Dr. Demetra Costa MAGNESIUMon 09-16-2021 Magnesium [Mass/Vol] 1.9 mg/dL Normal 1.8-2.4 [facility] Comment on above: Performed By: #### U PARESH, CMP #### [facility] [address] [place] [address] Dr. Demetra Costa PROF CHEM 8 (BAS METB)on Anion gap [Moles/Vol] 13.3 mmol/L Normal [facility] Comment on above: Performed By: #### M G, RENAL, URIC #### [facility] [address] [address] [address] Demetra Costa Calcium [Mass/Vol] 9.3 mg/dL Normal 8.5-10.1 [facility] Comment on above: Performed By: #### M G, RENAL, URIC #### [facility] [address] [place] [address] Dr. Demetra Costa Performed By: #### U PARESH, CMP #### [facility] [address] [place] [address] Dr. Demetra Costa Chloride [Moles/Vol] 104 mmol/L Normal 98-107 [facility] Comment on above: Performed By: #### M G, RENAL, URIC #### [facility] [address] [place] [address] Dr. Demetra Costa Performed By: #### U PARESH, CMP #### [facility] [address] [place] [address] Dr. Demetra Costa CO2 [Moles/Vol] 23.6 mmol/L Normal 21.0-32.0 [facility] Comment on above: Performed By: #### M G, RENAL, URIC #### [facility] [address] [place] [address] Dr. Demetra Costa Creatinine [Mass/Vol] 1.40 mg/dL Critically high 0.55-1.02 [facility] Comment on above: Performed By: #### M G, RENAL, URIC #### [facility] [address] [place] [address] Dr. Demetra Costa EGFR-AF DJIBOUTIAN 45 mL/min/1.73m2 Critically low >=60 [facility] Comment on above: Performed By: #### M G, RENAL, URIC #### [facility] [address] [place] [address] Dr. Demetra Costa Performed By: #### U PARESH, CMP #### [facility] [address] [place] [address] Dr. Demetra Costa EGFR-NON AF DJIBOUTIAN 37 mL/min/1.73m2 Critically low >=60 [facility] Comment on above: Performed By: #### M G, RENAL, URIC #### [facility] [address] [place] [address] Dr. Demetra Costa Performed By: #### U PARESH, CMP #### [facility] [address] [place] [address] Dr. Demetra Costa Glucose [Mass/Vol] 110 mg/dL Critically high 74-106 [facility] Comment on above: Performed By: #### M G, RENAL, URIC #### [facility] [address] [place] [address] Dr. Demetra Costa Performed By: #### U PARESH, CMP #### [facility] [address] [place] [address] Dr. Demetra Costa Potassium [Moles/Vol] 4.9 mmol/L Normal 3.5-5.1 [facility] Comment on above: Performed By: #### M G, RENAL, URIC #### [facility] [address] [place] [address] Dr. Demetra Costa Performed By: #### U PARESH, CMP #### [facility] [address] [place] [address] Dr. Demetra Costa Sodium [Moles/Vol] 136 mmol/L Normal 136-145 [facility] Comment on above: Performed By: #### M G, RENAL, URIC #### [facility] [address] [place] [address] Dr. Demetra Costa Urea nitrogen [Mass/Vol] 38.0 mg/dL Critically high 7.0-18.0 [facility] Comment on above: Performed By: #### M G, RENAL, URIC #### [facility] [address] [place] [address] Dr. Demetra Costa Performed By: #### U PARESH, CMP #### [facility] [address] [place] [address] Dr. Demetra Costa Urea nitrogen/Creatinine [Mass ratio] 27.1 mg/mg Normal [facility] Comment on above: Performed By: #### M G, RENAL, URIC #### [facility] [address] [place] [address] Dr. Demetra Costa RENAL FUNCTION PANELon 09-16 Albumin [Mass/Vol] 3.2 g/dL Critically low 3.4-5.0 [facility] Comment on above: Performed By: #### U PARESH, CMP #### [facility] [address] [place] [address] Dr. Demetra Costa CO2 [Moles/Vol] 23.4 mmol/L Normal 21.0-32.0 [facility] Comment on above: Performed By: #### U PARESH, CMP #### [facility] [address] [place] [address] Dr. Demetra Costa Creatinine [Mass/Vol] 1.39 mg/dL Critically high 0.55-1.02 [facility] Comment on above: Performed By: #### U PARESH, CMP #### [facility] [address] [place] [address] Dr. Demetra Costa Phosphate [Mass/Vol] 3.8 mg/dL Normal 2.6-4.7 [facility] Comment on above: Performed By: #### U PARESH, CMP #### [facility] [address] [place] [address] Dr. Demetra Costa Sodium [Moles/Vol] 137 mmol/L Normal 136-145 [facility] Comment on above: Performed By: #### U PARESH, CMP #### [facility] [address] [place] [address] Dr. Demetra Costa URIC ACID SERUMon 09-16-2021 Urate [Mass/Vol] 4.0 mg/dL Normal 2.6-6.0 [facility] Comment on above: Performed By: #### U PARESH, CMP #### [facility] [address] [place] [address] Dr. Demetra Costa VITAMIN D 25 OHon 09-16-2021 VIT D 25-OH 38.1 ng/mL Normal [facility] Comment on above: Performed By: #### U PARESH, CMP #### [facility] [address] [place] [address] Dr. Demetra Costa VIT D RANGES SEE BELOW Normal [facility] Comment on above: Result Comment: <20 ng/mL Vit D deficient 20 - <30 ng/mL Vit D insufficient 30 - 100 ng/mL Vit D sufficient >100 ng/mL Potential Toxicity Performed By: #### U PARESH, CMP #### [facility] [address] [place] [address] Dr. Demetra Costa [facility] [place] CON[place] 08-17-19 [place] EXAMINATION: MRI [place] CON HISTORY: Lumbar radiculopathy , chronic [...] TERESA AZUL Date: 2021-08-16 15:11 Normal [facility] MG MAMM DX 3D RT CADon 07-23 MG MAMM DX 3D RT CAD Patient: SD REHMAN Exam Date: 07/23/2021 : 1950 Gender:F Ordering : DR OLIVIA FATIMA Admission #: [id number] Family : Order #: [id number] CLICK HERE TO VIEW EXAM RADIOLOGY REPORT [...] lung cancer at age 61. LOCATION: [facility] BREAST COMPOSITION: Heterogeneously dense,which may obscure small [...] M.D. on 07/23/2021 at 15:03 Normal [facility] URIC ACIDon 10-14-2019 Urate [Mass/Vol] 5.3 mg/dL Normal 2.5-7.0 [facility] Comment on above: Result Comment: Ther apeutic target for gout patients: <6.0 mg/dL Performed By: #### 9 05 #### [facility], [address] [place], [place] [id number] Chemical Packager: Malik Ruiz MD URIC ACIDon 09-23-2019 Urate [Mass/Vol] 5.8 mg/dL Normal 2.5-7.0 [facility] Comment on above: Result Comment: Ther apeutic target for gout patients: <6.0 mg/dL Performed By: #### 9 05 #### [facility], [address] [place] [id number] Chemical Packager: Malik Ruiz MD URIC ACIDon 07-29-2019 Urate [Mass/Vol] 6.7 mg/dL Normal 2.5-7.0 [facility] Comment on above: Result Comment: Ther apeutic target for gout patients: <6.0 mg/dL Performed By: #### 9 05 #### [facility], [address] [place] [address] Chemical Packager: Malik Ruiz MD URIC ACIDon 07-01-2019 Urate [Mass/Vol] 8.4 mg/dL High 2.5-7.0 [facility] Comment on above: Result Comment: Ther apeutic target for gout patients: <6.0 mg/dL Performed By: #### 9 05 #### [facility], [address] [place] [address] Chemical Packager: Malik Ruiz MD Vital Signs Date Time Vital Sign Value Performing Clinician Facility 08-20-2023 10:29-0400 Body height 158.75 cm [facility] 08-20-2023 10:29-0400 Body mass index (BMI) [Ratio] 42.1 kg/m2 [facility] 08-20-2023 10:29-0400 Body temperature 98.3 [degF] [facility] 08-20-2023 10:29-0400 Body weight 106.19 kg [facility] 08-20-2023 10:29-0400 Diastolic blood pressure 86 mm[Hg] [facility] 08-20-2023 10:29-0400 Heart rate 87 /min [facility] 08-20-2023 10:29-0400 Respiratory rate 18 /min [facility] 08-20-2023 10:29-0400 SaO2% (BldA) [Mass fraction] 98 % [facility] 08-20-2023 10:29-0400 Systolic blood pressure 157 mm[Hg] [facility] 07-16-2023 13:48-0400 Body height 157.5 cm Vita BHAT Work Phone: [facility] [employer] [facility] 07-16-2023 13:48-0400 Body mass index (BMI) [Ratio] 42.07 kg/m2 Vita BHAT Work Phone: [employer] [facility] 07-16-2023 13:48-0400 Body weight 104.33 kg Vita Joshi APRN-EXAMINATION SUPERVISOR Work Phone: [employer] [facility] 12-16-2022 15:00-0400 Body height 158.75 cm Odell Karen Other [employer] Other 12-16-2022 15:00-0400 Body mass index (BMI) [Ratio] 42.83 kg/m2 Odell Karen Other [employer] Other 12-16-2022 15:00-0400 Body weight 107.96 kg Odell Karen Other [employer] Other 12-16-2022 15:00-0400 Diastolic blood pressure 74 mm[Hg] Odell Karen Other [employer] Other 12-16-2022 15:00-0400 Respiratory rate 18 /min Odell Karen Other [employer] Other 12-16-2022 15:00-0400 SaO2% (BldA) [Mass fraction] 98 % Odell Karen Other [employer] Other 12-16-2022 15:00-0400 Systolic blood pressure 124 mm[Hg] Odell Karen Other [employer] Other 09-03-2022 13:40-0400 Body height 158.8 cm Vita Joshi APRN-EXAMINATION SUPERVISOR Work Phone: [employer] 09-03-2022 13:40-0400 Body mass index (BMI) [Ratio] 41.4 kg/m2 Vita Joshi APRN-EXAMINATION SUPERVISOR Work Phone: [facility] 09-03-2022 13:40-0400 Body temperature 96.91 [degF] Vita Joshi APRN-EXAMINATION SUPERVISOR Work Phone: [facility] 09-03-2022 13:40-0400 Body weight 104.33 kg Vita Joshi APRN-EXAMINATION SUPERVISOR Work Phone: [facility] 07-30-2022 13:47-0400 Body height 157.5 cm Vita Joshi APRN-EXAMINATION SUPERVISOR Work Phone: [facility] 07-30-2022 13:47-0400 Body mass index (BMI) [Ratio] 41.15 kg/m2 Vita Joshi APRN-EXAMINATION SUPERVISOR Work Phone: [facility] 07-30-2022 13:47-0400 Body temperature 97 [degF] Vita Joshi APRN-EXAMINATION SUPERVISOR Work Phone: [facility] 07-30-2022 13:47-0400 Body weight 102.06 kg Vita Josih APRN-EXAMINATION SUPERVISOR Work Phone: [facility] 07-09-2022 09:20-0400 Body height 157.5 cm Vita Joshi APRN-EXAMINATION SUPERVISOR Work Phone: [facility] 07-09-2022 09:20-0400 Body mass index (BMI) [Ratio] 41.15 kg/m2 Vita Joshi APRN-EXAMINATION SUPERVISOR Work Phone: [facility] 07-09-2022 09:20-0400 Body temperature 97.3 [degF] Vita Joshi PEDIATRIC NURSE-EXAMINATION SUPERVISOR Work Phone: [facility] 07-09-2022 09:20-0400 Body weight 102.06 kg Vita Joshi APRN-EXAMINATION SUPERVISOR Work Phone: [facility] 06-25-2022 13:00-0400 Body height 157.5 cm Jerilyn Baig Work Phone: [facility] 06-25-2022 13:00-0400 Body mass index (BMI) [Ratio] 41.15 kg/m2 Jerilyn Baig Work Phone: [facility] [employer] [facility] 06-25-2022 13:00-0400 Body weight 102.06 kg Jerilyn Baig Work Phone: [facility] [employer] [facility] 06-11-2022 16:49-0400 Body temperature 97.7 [degF] Navin Clark MD Work Phone: [employer] [facility] 06-11-2022 16:49-0400 Diastolic blood pressure 63 mm[Hg] Navin Clark MD Work Phone: [employer] [facility] 06-11-2022 16:49-0400 Heart rate 68 /min Navin Clark MD Work Phone: [employer] [facility] 06-11-2022 16:49-0400 Respiratory rate 15 /min Navin Clark MD Work Phone: [employer] [facility] 06-11-2022 16:49-0400 SaO2% (BldA) [Mass fraction] 98 % Navin Clark MD Work Phone: [employer] 06-11-2022 16:49-0400 Systolic blood pressure 142 mm[Hg] Navin Clark MD Work Phone: [employer] [facility] 06-09-2022 10:43-0400 Body height 154.9 cm Navin Clark MD Work Phone: [employer] [facility] 06-09-2022 10:43-0400 Body mass index (BMI) [Ratio] 42.61 kg/m2 Navin Clark MD Work Phone: [employer] [facility] 06-09-2022 10:43-0400 Body weight 102.29 kg Navin Clark MD Work Phone: [employer] [facility] 05-02-2022 14:15-0500 Body height 157.5 cm Dennis Lomas MD Work Phone: [facility] 05-02-2022 14:15-0500 Body temperature 97.2 [degF] Dennis Lomas MD Work Phone: [facility] 05-02-2022 14:15-0500 Body weight 101.42 kg Dennis Lomas MD Work Phone: [facility] 05-02-2022 14:15-0500 Diastolic blood pressure 74 mm[Hg] Dennis Lomas MD Work Phone: [facility] 05-02-2022 14:15-0500 Heart rate 94 /min Dennis Lomas MD Work Phone: [facility] 05-02-2022 14:15-0500 Respiratory rate 16 /min Dennis Lomas MD Work Phone: [facility] 05-02-2022 14:15-0500 SaO2% (BldA) [Mass fraction] 97 % Dennis Lomas MD Work Phone: [facility] 05-02-2022 14:15-0500 Systolic blood pressure 149 mm[Hg] Dennis Lomas MD Work Phone: [facility] 02-28-2022 14:39-0500 Body height 157.5 cm Dennis Lomas MD Work Phone: [facility] 02-28-2022 14:39-0500 Body temperature 97.11 [degF] Dennis Lomas MD Work Phone: [facility] 02-28-2022 14:39-0500 Body weight 100.7 kg Dennis Lomas MD Work Phone: [facility] 02-28-2022 14:39-0500 Diastolic blood pressure 72 mm[Hg] Dennis Lomas MD Work Phone: [facility] 02-28-2022 14:39-0500 Heart rate 85 /min Dennis Lomas MD Work Phone: [facility] 02-28-2022 14:39-0500 Respiratory rate 16 /min Dennis Lomas MD Work Phone: [facility] 02-28-2022 14:39-0500 SaO2% (BldA) [Mass fraction] 96 % Dennis Lomas MD Work Phone: [facility] 02-28-2022 14:39-0500 Systolic blood pressure 147 mm[Hg] Dennis Lomas MD Work Phone: [facility] 02-19-2022 14:17-0500 Body height 157.5 cm Navin Clark MD Work Phone: [facility] 02-19-2022 14:17-0500 Body mass index (BMI) [Ratio] 41.26 kg/m2 Navin Clark MD Work Phone: [facility] 02-19-2022 14:17-0500 Body temperature 96.69 [degF] Navin Clark MD Work Phone: [facility] 02-19-2022 14:17-0500 Body weight 102.33 kg Navin Clark MD Work Phone: [facility] 01-02-2022 14:25-0400 Body height 157.5 cm Navin Clark MD Work Phone: [facility] 01-02-2022 14:25-0400 Body mass index (BMI) [Ratio] 42.07 kg/m2 Navin Clark MD Work Phone: [facility] [employer] [facility] 01-02-2022 14:25-0400 Body temperature 96.6 [degF] Navin Clark MD Work Phone: [facility] [employer] [facility] 01-02-2022 14:25-0400 Body weight 104.33 kg Navin Clark MD Work Phone: [facility] 10-24-2021 15:00-0400 Body height 158.75 cm Curtis Watkins Other [employer] Other 10-24-2021 15:00-0400 Body mass index (BMI) [Ratio] 41.39 kg/m2 Curtis Watkins Other [employer] Other 10-24-2021 15:00-0400 Body weight 104.33 kg Curtis Watkins Other [employer] Other 09-26-2021 13:20-0400 Body height 158.75 cm Odell Karen Other [employer] Other 09-26-2021 13:20-0400 Body mass index (BMI) [Ratio] 41.54 kg/m2 Odell Karen Other [employer] Other 09-26-2021 13:20-0400 Body temperature 97.6 [degF] Odell Karen Other [employer] Other 09-26-2021 13:20-0400 Body weight 104.69 kg Odell Karen Other [employer] Other 09-26-2021 13:20-0400 Diastolic blood pressure 80 mm[Hg] Odell Karen Other [employer] Other 09-26-2021 13:20-0400 Respiratory rate 18 /min Odell Karen Other [employer] Other 09-26-2021 13:20-0400 SaO2% (BldA) [Mass fraction] 97 % Odell Karen Other [employer] Other 09-26-2021 13:20-0400 Systolic blood pressure 146 mm[Hg] Odell Karen Other [employer] Other 02-21-2021 13:40-0500 Body height 158.75 cm Odell Karen Other [employer] Other 02-21-2021 13:40-0500 Body mass index (BMI) [Ratio] 43.79 kg/m2 Odell Karen Other [employer] Other 02-21-2021 13:40-0500 Body temperature 97.2 [degF] Odell Karen Other [employer] Other 02-21-2021 13:40-0500 Body weight 110.36 kg Odell Karen Other [employer] Other 02-21-2021 13:40-0500 Diastolic blood pressure 74 mm[Hg] Odell Karen Other [employer] Other 02-21-2021 13:40-0500 Respiratory rate 18 /min Odell Karen Other [employer] Other 02-21-2021 13:40-0500 SaO2% (BldA) [Mass fraction] 96 % Odell Karen Other [employer] Other 02-21-2021 13:40-0500 Systolic blood pressure 136 mm[Hg] Odell Karen Other [employer] Other 12-17-2020 12:15-0400 Body height 158.75 cm Malina Ginty Other [employer] Other 12-17-2020 12:15-0400 Body mass index (BMI) [Ratio] 43.73 kg/m2 Malina Ginty Other [employer] Other 12-17-2020 12:15-0400 Body temperature 97.3 [degF] Malina Milynty Other [employer] Other 12-17-2020 12:15-0400 Body weight 110.22 kg Malina Milynty Other [employer] Other 12-17-2020 12:15-0400 SaO2% (BldA) [Mass fraction] 95 % Malina Ginty Other [employer] Other Encounters Encounter Date Encounter Type Care Provider Facility Start: 10-23-2023 ambulatory [facility] Start: 10-21-2023 End: 10-21-2023 ambulatory [facility] Start: 09-29-2023 End: 09-29-2023 ambulatory [facility] Start: 09-15-2023 End: 09-15-2023 ambulatory [facility] Work Phone: Start: 09-15-2023 End: 09-15-2023 Departed Referred DO [facility] Work Phone: [facility] Start: 09-09-2023 End: 09-10-2023 Evaluation and management of inpatient [facility] Start: 08-24-2023 End: 08-24-2023 ambulatory [facility] Start: 08-24-2023 End: 08-24-2023 ambulatory [facility] Start: 08-20-2023 End: 08-20-2023 ambulatory [facility] Work Phone: Start: 08-20-2023 End: 08-20-2023 Patient encounter procedure [facility] Work Phone: Start: 07-22-2023 End: 07-22-2023 ambulatory [facility] Start: 07-16-2023 ambulatory [facility] Start: 07-16-2023 End: 07-16-2023 Office outpatient visit 25 minutes Vita Joshi APRN-EXAMINATION SUPERVISOR Work Phone: [facility] Comment on above: Hx of total knee art hroplasty, right (Primary Dx) Start: 07-16-2023 End: 07-16-2023 Subsequent hospital visit by physician Vita Joshi APRN-EXAMINATION SUPERVISOR Work Phone: [facility] Start: 06-08-2023 Tanya lockwood [facility] Start: 12-16-2022 End: 12-16-2022 ambulatory Odell Karen Other [employer] Other Start: 12-16-2022 Office outpatient vi sit 25 minutes Odell Karen [facility] Start: 12-15-2022 End: 12-15-2022 ambulatory [facility] Start: 10-09-2022 ambulatory [facility] Start: 10-09-2022 End: 10-09-2022 Subsequent hospital visit by physician Navin Clark MD Work Phone: [facility] Start: 09-22-2022 End: 09-22-2022 ambulatory [facility] Start: 09-03-2022 ambulatory [facility] Start: 09-03-2022 End: 09-03-2022 Postop follow up visit related to original px Vita Joshi APRN-EXAMINATION SUPERVISOR Work Phone: [facility] Comment on above: Hx of total knee art hroplasty, right (Primary Dx) Start: 09-03-2022 End: 09-03-2022 Subsequent hospital visit by physician Navin Clark MD Work Phone: [facility] Rad[facility] Start: 07-30-2022 ambulatory SELF SELF [facility] Start: 07-30-2022 End: 07-30-2022 Postop follow up visit related to original px Vita BHAT Work Phone: [facility] Comment on above: Hx of total knee art hroplasty, right (Primary Dx) Start: 07-09-2022 End: 07-09-2022 Postop follow up visit related to original px Vita BHAT Work Phone: [facility] Comment on above: Hx of total knee art hroplasty, right (Primary Dx) Start: 06-25-2022 End: 06-25-2022 Postop follow up visit related to original px Jerilyn Ronan Baig Work Phone: [facility] Comment on above: Hx of total knee art hroplasty, right (Primary Dx) Start: 06-09-2022 End: 06-11-2022 Evaluation and management of inpatient Navin Clakr MD Work Phone: [facility] S[facility] Comment on above: Benign hypertension Start: 06-09-2022 End: 06-11-2022 Patient encounter status Navin Clark MD Work Phone: [facility] Start: 05-29-2022 End: 05-30-[address] DOCTOR NAVARRETE Facility:[facility] Start: 05-28-2022 End: 05-29-2022 ambulatory ODELL JONES Facility: Start: 05-02-2022 End: 05-02-2022 ambulatory DENNIS LOMAS Facility:[facility] Start: 05-02-2022 End: 05-02-2022 Office outpatient visit 15 minutes Dennis Lomas MD Work Phone: Hematology/Oncology Comment on above: Bandemia (Primary Dx ) Start: 03-11-2022 ambulatory VITA JOSHI [facility] Start: 03-11-2022 End: 03-11-2022 Subsequent hospital visit by physician Vita BHAT Work Phone: [facility] Medicine Comment on above: Arrived Start: 03-10-2022 ambulatory VITA MADELYN [facility] Start: 02-28-2022 End: 02-28-2022 ambulatory Dennis Lomas MD Work Phone: Hematology/Oncology Comment on above: Bandemia (Primary Dx ); Chronic obstructive pulmonary disease, unspecified COPD type (HCC); Macrocytosis without anemia Start: 02-28-2022 End: 02-28-2022 Patient encounter procedure Dennis Lomas MD Work Phone: [facility] Start: 02-27-2022 End: 02-28-[address] DOMINIC CARDENAS Facility: Start: 02-25-2022 Chart abstracting Dennis espinal MD Work Phone: Hematology/Oncology Start: 02-19-2022 End: 02-19-2022 Office outpatient visit 40 minutes Navin Clark MD Work Phone: [facility] Comment on above: Pain in prosthetic j oint, sequela (Primary Dx) Start: 02-17-2022 End: 02-18-2022 ambulatory ODELL JONES Facility:[facility] Start: 01-27-2022 End: 01-28-[address] PATRICK ODOM Facility:[facility] Start: 01-02-2022 End: 01-02-2022 Office outpatient new 30 minutes Navin Clark MD Work Phone: [facility] Comment on above: Pain in prosthetic j oint, sequela (Primary Dx) Start: 01-02-2022 End: 01-02-2022 Subsequent hospital visit by physician Navin Clark MD Work Phone: [facility] Start: 12-14-2021 End: 12-14-2021 Emergency department patient visit Jignesh He Facility:[facility] Start: 12-14-2021 End: 12-15-2021 ambulatory Jignesh He Facility:[facility] Start: 12-06-2021 Encounter for preprocedural laboratory examination DR ZINA CRAWFORD [facility] Start: 12-03-2021 End: 12-03-[address] ZINA CRAWFORD Facility:[facility] Start: 11-30-2021 End: 12-01-[address] ZINA CRAWFORD Facility:[facility] Start: 11-30-2021 End: 12-01-2021 Encounter for preprocedural laboratory examination DR ZINA CRAWFORD Facility:[facility] Start: 11-26-2021 End: 11-26-2021 ambulatory Odell Karen Other [facility] [employer] Other Start: 11-26-2021 Telephone encounter Odell Karen [facility] Start: 11-21-2021 End: 11-21-[address] IRWIN JACQUES . Facility:[facility] Start: 11-04-2021 End: 11-05-[address] PATRICK ODOM Facility:[facility] Start: 11-01-2021 End: 11-02-2021 ambulatory MOHAMUD SUSI . Facility:[facility] Start: 10-24-2021 End: 10-24-2021 ambulatory Curtis Watkins Other [place] [employer] Other Start: 10-24-2021 Office outpatient ne w 30 minutes Curtis Watkins [facility] Neurosurgery Start: 10-03-2021 End: 12-23-2021 ambulatory CHRIS MOLINA Facility:[facility] Start: 10-02-2021 End: 10-24-[address] DOCTOR NAVARRETE Facility:[facility] Start: 09-27-2021 End: 09-27-2021 ambulatory MOHAMUD SUSI . Facility:[facility] Start: 09-26-2021 End: 09-27-2021 ambulatory ODELL KAREN [facility] [employer] Other Start: 09-26-2021 Office outpatient vi sit [...] 02-21-2021 End: 02-21-2021 ambulatory Odell Karen Other [employer] Other Start: 02-21-2021 Office outpatient vi sit 25 minutes Odell Karen [facility] [place] Start: 12-17-2020 Office outpatient vi sit 15 minutes Malina Ginty [facility] [place] Start: 10-21-2016 End: 10-22-2016 Ambulatory DEFAULT PHYSICIAN Facility:[facility] Procedures Date Procedure Procedure Detail Performing Clinician Start: 12-31-2022 Adult depression scr eening assessment Nati Cueva CMA Start: 06-11-2022 Complete blood count with white cell differential, automated Jerilyn Baig Work Phone: Start: 06-11-2022 Renal function panel Jannet Henderson MD Work Phone: Start: 06-10-2022 Sars-cov-2 detection by dna/rna Vita Joshi APRN-EXAMINATION SUPERVISOR Work Phone: Start: 06-10-2022 Renal function panel [...] w hole body single day imaging Vita Josih PEDIATRIC NURSE-EXAMINATION SUPERVISOR Work Phone: Start: 02-19-2022 Arthrocentesis aspir &/inj major jt/bursa w/o us Navin Clark MD Work Phone: Plan of Treatment Date Care Activity Detail Author Start: 05-02-2025 DIABETES SCREEN DIABETES SCREEN [facility] Start: 01-01-2024 Adult BMI Screening Adult BMI Screen ing [facility] Start: 01-01-2024 Depression Screening Depression Scre ening [facility] Start: 01-01-2024 Fall Risk Screening Fall Risk Screen ing [facility] Start: 01-01-2024 Tobacco Screening Tobacco Screening [facility] Start: 09-29-2023 End: 09-29-2023 Patient encounter procedure 09/29/2023 2:00 PM EDT Office Visit [facility] Internal Medicine - Family Medicine [address] [place] [id number] [facility] Internal Medicine - Family Medicine Start: 09-19-2023 Medicare Annual Well ness Visit Medicare Annual Wellness Visit [facility] Start: 06-12-2023 Potassium [Moles/vol ume] in Serum or Plasma POTASSIUM [facility] Start: 06-03-2023 End: 06-03-2023 Patient encounter procedure [facility] Start: 11-21-2022 Influenza vaccination [facility] Start: 10-09-2022 End: 10-09-2022 Patient encounter procedure [facility] Start: 09-03-2022 End: 09-03-2022 Patient encounter procedure 09/03/2022 Office Visit Vita Joyce, PEDIATRIC NURSE-EXAMINATION SUPERVISOR [address] [place] [address] [facility] Start: 07-30-2022 End: 07-30-2022 Patient encounter procedure 07/30/2022 Office Visit Vita Joyce, PEDIATRIC NURSE-EXAMINATION SUPERVISOR [address] [place] [address] [facility] Start: 07-25-2022 End: 09-24-2022 C reactive protein [Mass/volume] in Serum or Plasma C-REACTIVE PROTEIN (CRP) Lab Routine Bandemia Expected: 07/25/2022 (Approximate), Expires: 09/24/2022 [facility] Work Phone: Comment on above: Expected: 07/25/2022 (Approximate), Expires: 09/24/2022 Start: 07-25-2022 End: 05-02-2023 CBC W Auto Differential panel - Blood CBC + DIFF Lab Routine Bandemia Expected: 07/25/2022 (Approximate), Expires: 05/02/2023 [facility] Work Phone: Comment on above: Expected: 07/25/2022 (Approximate), Expires: 05/02/2023 Start: 07-25-2022 End: 05-02-2023 Comprehensive metabolic 2000 panel - Serum or Plasma COMP METABOLIC PANEL Lab Routine Bandemia Expected: 07/25/2022 (Approximate), Expires: 05/02/2023 [facility] Work Phone: Comment on above: Expected: 07/25/2022 (Approximate), Expires: 05/02/2023 Start: 07-25-2022 End: 09-24-2022 Erythrocyte sedimentation rate SED RATE WESTERGREN Lab Routine Bandemia Expected: 07/25/2022 (Approximate), Expires: 09/24/2022 [facility] Work Phone: Comment on above: Expected: 07/25/2022 (Approximate), Expires: 09/24/2022 Start: 07-25-2022 End: 05-02-2023 Lactate dehydrogenase [Enzymatic activity/volume] in Serum or Plasma LD LACTATE DEHYDRO Lab Routine Bandemia Expected: 07/25/2022 (Approximate), Expires: 05/02/2023 [facility] Work Phone: Comment on above: Expected: 07/25/2022 (Approximate), Expires: 05/02/2023 Start: 07-25-2022 End: 09-24-2022 Urate [Mass/volume] in Serum or Plasma URIC ACID BLOOD Lab Routine Bandemia Expected: 07/25/2022 (Approximate), Expires: 09/24/2022 [facility] Work Phone: Comment on above: Expected: 07/25/2022 (Approximate), Expires: 09/24/2022 Start: 07-09-2022 End: 07-09-2022 Patient encounter procedure 07/09/2022 Office Visit Orthopaedics Vita Joshi, PEDIATRIC NURSE-EXAMINATION SUPERVISOR [address] [place] [address] [facility] Start: 06-25-2022 End: 06-25-2022 Patient encounter procedure 06/25/2022 Office Visit Orthopaedics Jerilyn Baig [address] [place] [address] [facility] Start: 05-15-2022 End: 05-15-2022 ambulatory 05/15/2022 Pre-Operative Nurse Assessment Internal Medicine [facility] Pre Admission Start: 05-01-2022 End: 07-01-2022 C reactive protein [Mass/volume] in Serum or Plasma C-REACTIVE PROTEIN (CRP) Lab Routine Macrocytosis without anemia Expected: 05/01/2022 (Approximate), Expires: 07/01/2022 [facility] Work Phone: Comment on above: Expected: 05/01/2022 (Approximate), Expires: 07/01/2022 Start: 05-01-2022 End: 02-28-2023 CBC W Auto Differential panel - Blood CBC + DIFF Lab Routine Macrocytosis without anemia Expected: 05/01/2022 (Approximate), Expires: 02/28/2023 [facility] Work Phone: Comment on above: Expected: 05/01/2022 (Approximate), Expires: 02/28/2023 Start: 05-01-2022 End: 02-28-2023 Cobalamin (Vitamin B12) [Mass/volume] in Serum or Plasma VITAMIN B12 BLOOD Lab Routine Macrocytosis without anemia Expected: 05/01/2022 (Approximate), Expires: 02/28/2023 [facility] Work Phone: Comment on above: Expected: 05/01/2022 (Approximate), Expires: 02/28/2023 Start: 05-01-2022 End: 02-28-2023 Comprehensive metabolic 2000 panel - Serum or Plasma COMP METABOLIC PANEL Lab Routine Macrocytosis without anemia Expected: 05/01/2022 (Approximate), Expires: 02/28/2023 [facility] Work Phone: Comment on above: Expected: 05/01/2022 (Approximate), Expires: 02/28/2023 Start: 05-01-2022 End: 07-01-2022 Erythrocyte sedimentation rate SED RATE WESTERGREN Lab Routine Macrocytosis without anemia Expected: 05/01/2022 (Approximate), Expires: 07/01/2022 [facility] Work Phone: Comment on above: Expected: 05/01/2022 (Approximate), Expires: 07/01/2022 Start: 05-01-2022 End: 02-28-2023 Ferritin [Mass/volume] in Serum or Plasma FERRITIN BLD Lab Routine Macrocytosis without anemia Expected: 05/01/2022 (Approximate), Expires: 02/28/2023 [facility] Work Phone: Comment on above: Expected: 05/01/2022 (Approximate), Expires: 02/28/2023 Start: 05-01-2022 End: 02-28-2023 Folate [Mass/volume] in Serum or Plasma FOLATE SERUM Lab Routine Macrocytosis without anemia Expected: 05/01/2022 (Approximate), Expires: 02/28/2023 [facility] Work Phone: Comment on above: Expected: 05/01/2022 (Approximate), Expires: 02/28/2023 Start: 05-01-2022 End: 02-28-2023 Iron and Iron binding capacity panel - Serum or Plasma IRON + TIBC Lab Routine Macrocytosis without anemia Expected: 05/01/2022 (Approximate), Expires: 02/28/2023 [facility] Work Phone: Comment on above: Expected: 05/01/2022 (Approximate), Expires: 02/28/2023 Start: 05-01-2022 End: 07-01-2022 Lactate dehydrogenase [Enzymatic activity/volume] in Serum or Plasma LD LACTATE DEHYDRO Lab Routine Macrocytosis without anemia Expected: 05/01/2022 (Approximate), Expires: 07/01/2022 [facility] Work Phone: Comment on above: Expected: 05/01/2022 (Approximate), Expires: 07/01/2022 Start: 03-23-2022 ADVANCE DIRECTIVE DISCUSSION ADVANCE DIRECTIVE DISCUSSION [facility] Start: 03-23-2022 DEPRESSION ASSESSMENT DEPRESSION ASS ESSMENT [facility] Start: 02-19-2022 End: 02-19-2022 Patient encounter procedure 02/19/2022 Office Visit Orthopaedics Navin Clark MD [address] [place] [address] [facility] Start: 11-21-2021 Influenza [facility] Start: 03-23-2021 ADVANCE DIRECTIVE DISCUSSION ADVANCE DIRECTIVE DISCUSSION [facility] Start: 03-23-2021 DEPRESSION ASSESSMENT DEPRESSION ASS ESSMENT [facility] Start: 03-13-2021 COVID-19 VACCINE (5 - Booster for Moderna series) COVID-19 VACCINE (5 - Booster for Moderna series) [facility] Start: 03-24-2019 DTaP,Tdap and Td Vaccines (2 - Td or Tdap) DTaP,Tdap and Td Vaccines (2 - Td or Tdap) [facility] Start: 03-24-2019 Tetanus vaccination TETANUS [facility] Start: 10-17-2017 Pneumococcal vaccination PNEUM OCOCCAL VACCINE SERIES (2 - PPSV23 if available, else PCV20) [facility] Start: 06-27-2016 BONE DENSITY BONE DENSITY [facility] Start: 06-27-2016 PNEUMOCOCCAL: 65+ (1 - PCV) PNEUMOCOCCAL: 65+ (1 - PCV) [facility] Start: 06-27-2001 Administration of varicella zoster vaccine Zoster (Shingles) Vaccine (1 of 2) [facility] Start: 06-27-2001 Influenza vaccination LUNG CANCER SC REENING [facility] Start: 06-27-2001 SHINGRIX VACCINE (1 of 2) SHINGRIX VACCINE (1 of 2) [facility] Start: 06-27-2001 Zoster vaccine hzv l chris for subcutaneous use ZOSTER (SHINGLES) VACCINE (1 of 2) [facility] Start: 06-27-1996 COLOGUARD (FIT-DNA) COLOGUARD (FIT-D NA) [facility] Start: 06-27-1996 Colonoscopy COLONOSCOPY [facility] Start: 06-27-1996 COLORECTAL CANCER SCREENING COLORECTAL CANCER SCREENING [facility] Start: 06-27-[address] COLONOGRAPHY [facility] Start: 06-27-1996 DIABETES SCREEN DIABETES SCREEN [facility] Start: 06-27-1996 FECAL OCCULT BLOOD FECAL OCCULT BLOO D [facility] Start: 06-27-1996 LIPID SCREEN LIPID SCREEN [facility] Start: 06-27-1996 Screening for malign ant neoplasm of colon COLORECTAL CANCER SCREENING DISCUSSION [facility] Start: 06-27-1996 SIGMOIDOSCOPY SIGMOIDOSCOPY [facility] Start: 1991 Lipid panel LIPID SCREENING [facility] Start: 1991 Mammography MAMMOGRAM [facility] Start: 1991 Screening for malign ant neoplasm of breast MAMMOGRAM SCREENING DISCUSSION [facility] Start: 06-27-1972 Screening for malign ant neoplasm of cervix CERVICAL CANCER SCREENING DISCUSSION [facility] Start: 06-27-1970 Urine microalbumin profile DTAP,TDAP,TD (1 - Tdap) [facility] Start: 06-27-1969 Adult BMI Follow Up Plan Adult BMI Follow Up Plan [facility] Start: 06-27-1969 HEPATITIS C SCREENING HEPATITIS C [facility] Start: 06-27-1957 Pneumococcal vaccination PNEUM OCOCCAL VACCINE SERIES (1 - PCV) [facility] Start: 1951 COVID-19 VACCINE (#1) COVID-19 VACCI NE (#1) [facility] Start: 1950 Hepatitis B vaccination HEP B VACCINE (1 of 3 - 3-dose series) [facility] Start: 1950 Hepatitis C screening HEPATITI S C VIRUS SCREENING [facility] Start: 1950 Potassium [Moles/vol ume] in Serum or Plasma POTASSIUM [facility] Start: 1950 Screening for osteoporosis DEXA SCAN DISCUSSION [facility] ANAEROBE CULTURE ANAEROBE CULTUR E Microbiology Routine Other mechanical complication of internal right knee prosthesis, initial encounter Release Upon Ordering for 1 Occurrences starting 06/09/2022 [facility] Comment on above: Release Upon Orderin g for 1 Occurrences starting 06/09/2022 ANAEROBE CULTURE ANAEROBE CULTUR E Microbiology Routine 06/09/2022 2:10 PM EDT [facility] Bacteria identified in Body fluid by Culture BODY FLUID CULTURE AND DIRECT SMEAR [facility] in Unspecified specimen by Culture BACTERIAL CULTURE AND DIRECT SMEAR, LESION, TISSUE, DEVICE Microbiology Routine Other mechanical complication of internal right knee prosthesis, initial encounter Release Upon Ordering for 1 Occurrences starting 06/09/2022 [facility] Comment on above: Release Upon Orderin g for 1 Occurrences starting 06/09/2022 Fungus identified in Unspecified specimen by Culture FUNGUS CULTURE Microbiology Routine Other mechanical complication of internal right knee prosthesis, initial encounter Release Upon Ordering for 1 Occurrences starting 06/09/2022 [facility] Comment on above: Release Upon Orderin g for 1 Occurrences starting 06/09/2022 Fungus identified in Unspecified specimen by Culture FUNGUS CULTURE Microbiology Routine 06/09/2022 2:10 PM EDT [facility] Mycobacterium sp identified in Unspecified specimen by Organism specific culture ACID FAST CULTURE Microbiology Routine Other mechanical complication of internal right knee prosthesis, initial encounter Release Upon Ordering for 1 Occurrences starting 06/09/2022 [facility] Comment on above: Release Upon Orderin g for 1 Occurrences starting 06/09/2022 Mycobacterium sp identified in Unspecified specimen by Organism specific culture ACID FAST CULTURE Microbiology Routine 06/09/2022 2:10 PM EDT [facility] Radiography for bone length studies XR BONE LENGTH STUDY Imaging Routine Pain in prosthetic joint, sequela 01/02/2022 2:10 PM EDT [facility] Radiography for bone length studies XR BONE LENGTH STUDY Imaging Routine Hx of total knee arthroplasty, right 10/09/2022 1:20 PM EDT [facility] Work Phone: Renal function 2000 panel - Serum or Plasma [facility] TISSUE CULTURE TISSUE CULTURE Microbiology Routine 06/09/2022 2:10 PM EDT [facility] XR Knee - right 2 Views XR KNEE RIGHT 2 VIEWS Imaging Routine Pain in prosthetic joint, sequela 02/19/2022 2:12 PM EST [facility] XR Knee - right 2 Views XR KNEE RIGHT 2 VIEWS Imaging Routine Hx of total knee arthroplasty, right 06/25/2022 12:41 PM EDT [facility] XR Knee - right 2 Views XR KNEE RIGHT 2 VIEWS Imaging Routine Hx of total knee arthroplasty, right 07/09/2022 9:14 AM EDT [facility] XR Knee - right 2 Views XR KNEE RIGHT 2 VIEWS Imaging Routine Hx of total knee arthroplasty, right 07/30/2022 1:35 PM EDT [facility] XR Knee - right 3 Views XR KNEE RIGHT 3 VIEWS Imaging Routine Pain in prosthetic joint, sequela 01/02/2022 2:10 PM [facility] Work Phone: XR Knee - right 3 Views XR KNEE RIGHT 3 VIEWS Imaging Routine Hx of total knee arthroplasty, right Ordered: 06/27/2022 [employer] Comment on above: Ordered: 06/27/2022 XR Knee - right 3 Views XR KNEE RIGHT 3 VIEWS Imaging Routine Hx of total knee arthroplasty, right 09/03/2022 1:33 PM [facility] Work Phone: XR Knee - right 3 Views XR KNEE RIGHT 3 VIEWS Imaging Routine Hx of total knee arthroplasty, right 10/09/2022 1:20 PM [facility]read[facility] XR Knee - right 3 Views XR KNEE RIGHT 3 VIEWS Imaging Routine Hx of total knee arthroplasty, right 07/16/2023 1:45 PM [facility] Work Phone: [facility] Immunizations Immunization Date Immunization Notes Care Provider Viry larose 02-02-2023 Influenza Vaccine, Quadrivalent, Adjuvanted [facility] 11-19-2022 Pneumococcal Conjuga te 20-valent [facility] 11-19-2022 RSV, recombinant, protein subunit RSVpreF, adjuvant reconstituted, 0.5 mL, PF [facility] 01-03-2021 Influenza, High-dose , Quadrivalent [facility] 01-03-2021 influenza virus vaccine, unspecified formulation Navin Clark MD Work Phone: [facility] 06-21-2020 COVID-19, mRNA, LNP- S, PF, 100mcg/0.5mL Dose [facility] 05-22-2020 COVID-19, mRNA, LNP- S, PF, 100mcg/0.5mL Dose [facility] 01-25-2020 Influenza Vaccine, Quadrivalent, Adjuvanted [facility] 03-24-2009 tetanus toxoid, redu eloisa diphtheria toxoid, and acellular pertussis vaccine, adsorbed [facility] Payers Date Payer Category Payer Self-pay [id number] 2016 Medicare [id number] 2015 Unknown 2015 Medicare [id number] 2. [id number] 1959 Unknown [id number] 1950 Unknown [id number] 2.16.84 0.1.900827.3.579.2.718 1951 Unknown [id number] 2.16.84 0.1.669174.3.579.2.718 1951 Unknown [id number] 2.16.8 40.1.997817.3.579.2.983 1951 Unknown [id number] 2.16.8 40.1.867209.3.579.2.983 1951 Unknown [id number] 2.16.8 40.1.713225.3.579.2.983 1951 Unknown [id number] 2.16.84 0.1.838717.3.579.2.593 1951 Unknown [id number] 2.16.84 0.1.638300.3.579.2.593 1951 Unknown [id number] 2.16.84 0.1.405043.3.579.2.593 1951 Unknown [id number] 2.16.84 0.1.250394.3.579.2.593 1951 Unknown [id number] 2.16.84 0.1.535940.3.579.2.593 1951 Unknown [id number] 2.16.84 0.1.641076.3.579.2.593 1951 Unknown [id number] 2.16.84 0.1.121842.3.579.2.593 1951 Unknown [id number] 2.16.84 0.1.515841.3.579.2.593 1951 Unknown [id number] 2.16.84 0.1.908801.3.579.2.593 1951 Unknown [id number] 2.16.84 0.1.882550.3.579.2.593 1951 Unknown [id number] 2.16.84 0.1.700235.3.579.2.593 1951 Unknown [id number] 2.16.84 0.1.536199.3.579.2.593 1951 Unknown [id number] 2.16.84 0.1.182637.3.579.2.593 1951 Unknown [id number] 2.16.84 0.1.707292.3.579.2.593 1951 Unknown [id number] 2.16.84 0.1.931603.3.579.2.593 1951 Unknown [id number] 2.16.84 0.1.260232.3.579.2.593 1951 Unknown [id number] 2.16.84 0.1.767456.3.579.2.593 1951 Unknown [id number] 2.16.84 0.1.101626.3.579.2.593 1951 Unknown [id number] 2.16.84 0.1.812438.3.579.2.593 1951 Unknown [id number] 2.16.84 0.1.409670.3.579.2.593 1951 Unknown [id number] 2.16.84 0.1.634717.3.579.2.593 1951 Unknown [id number] 2.16.84 0.1.241624.3.579.2.593 1951 Unknown [id number] 2.16.84 0.1.325661.3.579.2.593 1951 Unknown [id number] 2.16.84 0.1.779759.3.579.2.593 1951 Unknown [id number] 2.16.84 0.1.680964.3.579.2.593 1951 Unknown [id number] 2.16.8 40.1.592339.3.579.2.983 1951 Unknown [id number] 2.16.8 40.1.963128.3.579.2.983 1951 Unknown [id number] 2.16.8 40.1.178107.3.579.2.983 1951 Unknown [id number] 2.16.8 40.1.721254.3.579.2.983 1951 Unknown [id number] 2.16.8 40.1.922368.3.579.2. 1950 Unknown [id number] 2.16.8 40.1.239182.3.579.2.98 1951 Unknown [id number] 2.16.8 40.1.005638.3.579.2. 1951 Unknown [id number] 2.16.8 40.1.148692.3.579.2. 1951 Unknown [id number] 2.16.8 40.1.039673.3.579.2.1285 1951 Unknown [id number] 2.16.8 40.1.177036.3.579.2.1285 1951 Unknown [id number] 2.16.8 40.1.841616.3.579.2.1285 1951 Unknown [id number] 2.16.8 40.1.956260.3.579.2.1285 1951 Unknown [id number] 2.16.8 40.1.929265.3.579.2.1285 1951 Unknown [id number] 2.16.8 40.1.275683.3.579.2.1285 1951 Unknown [id number] 2.16.8 40.1.170483.3.579.2.128 1951 Unknown [id number] 2.16.8 40.1.422477.3.579.2.1285 1951 Unknown [id number] 2.16.8 40.1.864699.3.579.2.128 1951 Unknown [id number] 2.16.8 40.1.467289.3.579.2.1285 1951 Unknown [id number] 2.16.8 40.1.035733.3.579.2.1286 1951 Unknown [id number] 2.16.8 40.1.789922.3.579.2.1286 1951 Unknown [id number] 2.16.8 40.1.257665.3.579.2.1286 1951 Unknown [id number] 2.16.8 40.1.942142.3.579.2.1286 Unknown [facility] [id number] Unknown [id number] 2.16.8 40.1.007841.3.579.2.531 Social History Date Type Detail Facility Unknown if ever smoked [facility] Start: 09-03-2022 End: 07-16-2023 Sex Assigned At [facility] Start: 01-02-2022 Tobacco smoking status [facility]: 02-07-2022 History of tobacco use Cigarette Smoker [facility] Start: 01-02-2022 End: 07-16-2023 Tobacco use and exposure Smokeless tobacco non-user [facility] Start: 01-02-2022 End: 07-16-2023 Alcohol intake Current drinker of alcohol (finding) [facility] Start: 01-02-2022 Alcohol Comment occasional [facility] Start: 1950 Sex Assigned At Not on file [facility] Start: 02-19-2022 End: 07-16-2023 Tobacco smoking status NHIS Ex-smoker [employer] Start: 08-20-2023 End: 02-07-2022 History of tobacco use Current smoker [facility] Tobacco smoking stat us MOIS Tobacco smoking consumption unknown [facility] Start: 02-28-2022 End: 07-16-2023 Cigarettes smoked current (pack per day) - [facility] Start: 02-28-2022 End: 05-02-2022 Alcohol intake Ex-drinker (finding) [facility] Start: 05-30-2022 End: 06-09-2022 Exposure to SARS-CoV-2 (event) Not sure [facility] Start: 12-31-2022 Alcohol intake Defer [facility] Do you belong to any clubs or organizations such as congregational groups, unions, fraternal or athletic groups, or school groups? Yes [facility] Are you now , , , , never or living with a partner? [facility] How often to you hav e a drink containing alcohol? 2-4 times a month [facility] How many standard dr inks containing alcohol do you have on a typical day? Patient does not drink [facility] How often do you hav e 6 or more drinks on 1 occasion? Never [facility] Do you feel stress - tense, restless, nervous, or anxious, or unable to sleep at night because your mind is troubled all the time - these days [OSQ] Not at all [facility] Start: 1950 Sex Assigned At Female [facility] Medical Equipment Procedure Code Equipment Code Equipment Origin al Text Equipment Identifier Dates Attune Knee Syst em Revision Crs Rotating Platform Insert Size 3 16mm Aox [id number] Start: 06-09-2022 Palacos R & G Partha ne Cement High-Viscosity With Gentamicin - [id number] Start: 06-09-2022 Attune Knee Syst em Revision Distal Femoral Augment Size 3 4mm Cemented [id number] Start: 06-09-2022 Attune Knee Syst em Revision Distal Femoral Augment Size 3 4mm Cemented [id number] Start: 06-09-2022 Attune Knee Syst em Revision Offset Stem Adaptor 4mm [id number] Start: 06-09-2022 Moldable Demineralized Fibers [id number] Start: 06-09-2022 Comment on above: Description: ID: [id number] CODE:[id number] Palac[employer] Partha ne Cement High-Viscosity With Gentamicin - [id number] Start: 06-09-2022 Palacos [employer] Partha ne Cement High-Viscosity With Gentamicin - [id number] Start: 06-09-2022 Attune Knee Syst em [...] sites without tophus Morbid obesity (CMS/HCC) 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 [facility] 07-22-2023 Note Patient here for 6 m o follow up PAF, hypertension, and hyperlipidemia. She will have labs at the end of the month for nephrology. Denies chest pain, SOB, lightheadedness/syncope, and bleeding on Eliquis. She doesn't think she's taking metoprolol. I did confirm this with the pharmacy, as she is not filling this. [facility] 07-16-2023 History of Present illness Narrative Ortho Nurse - Established Patient Intake Room#: 5 Date: 07/16/2023 1:50 PM Patient: Sd Rehman MR#: [id number] : 1950 Age: 73 y.o. 1yr R [...] DR Take 1 capsule by mouth daily. Pozjfeqmorz-Rcdpumfmx-Zrezcj (Trelegy Ellipta) 100-62.5-25 MCG/INH Aerosol Powder, breath [...] capsule by mouth daily., Disp: , Rfl: Yopcrbbnbrf-Kgmqkpgqa-Mpgwqy (Trelegy Ellipta) 100-62.5-25 MCG/INH Aerosol Powder, breath [...] have reviewed the findings of the clinical senior office support assistant sosa and agree with their assessment. Ortho Nurse - Established Patient Intake Room#: 5 Date: 07/16/2023 1:50 PM Patient: Sd Rehman MR#: [id number] : 1950 Age: 73 y.o. 1yr R [...] DR Take 1 capsule by mouth daily. Hecydogixvi-Dlafgoivs-Ohyyau (Trelegy Ellipta) 100-62.5-25 MCG/INH Aerosol Powder, breath [...] capsule by mouth daily., Disp: , Rfl: Wsmgfhsvksu-Vuerqlpid-Hmuvlk (Trelegy Ellipta) 100-62.5-25 MCG/INH Aerosol Powder, breath [...] No Known Allergies. documented in this encounter [facility] 12-16-2022 Evaluation note Encounter Date Diagnosis Assessment [...] within the goal but has low Iron. [facility] 09-25-2023 NotePatient here for 2 mo follow up abnormal stress test and PAF. Denies chest pain, palpitations, SOB, and bleeding on Eliquis. She doesn't think she's taking metoprolol and she isn't sure why. 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 Review of Systems Musculoskeletal: Positive for arthritis and joint pain. All other systems reviewed and are negative.[facility] 12-15-2022 NoteCardiology Clinic Note Subjective Sd [...] multiple sites without tophus Morbid obesity (CMS/HCC) FDC (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 non-steroidal anti-inflammatories (nsaid) S/P [...] BY MOUTH EVERY DAY, Disp: , Rfl: uesxhdlfgik-grhspgvsf-vqnbtaqh 100-62.5-25 mcg blister with device, Trelegy Ellipta 100 mcg-62.5 mcg-25 mcg powder for inhalation INHALE 1 PUFF EVERY DAY BY INHALATION ROUTE, Disp: , Rfl: folic acid (more content not included)...[facility] 09-22-2022 NoteCardiology Clinic Note Subjective Sd [...] multiple sites without tophus Morbid obesity (CMS/HCC) FDC (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 non-steroidal anti-inflammatories (nsaid) S/P [...] FOR BLOOD CLOT PREVENTION, Disp: , Rfl: gwfdmzkdxqi-odlebfonu-hiosekso 100-62.5-25 mcg blister with device, Trelegy Ellipta [...] (Crestor) 20 mg table (more content not included)...[facility]07-03-2023 NoteCardiology Clinic Note Subjective Sd Rehman [...] sites without tophus 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 Referring Physician: [...] mouth 2 times daily. 60 tablet 1 Gkgqcrzlwyt-Cbcdcqdkx-Onruqy (Trelegy Ellipta) 100-62.5-25 MCG/INH Aerosol Powder, breath [...] SUBJECTIVE: Sd is an established patient of [facility]. Here today for followup. She is now [...] 4- month appointment or sooner as needed. (DOC:[id number]) I have reviewed the findings of the clinical senior office support assistant sosa and agree with their assessment. [facility] Nurse - Established Patient Intake Room#: 5--1 month follow up for weight bearing statis. She is at 50 % weight bearing and has full ROM. She has been doing PT every day along with OT. She has no pain today. Her Right TKA was on 06-09-22. Date: 09/03/2022 1:45 PM Patient: Sd Rehman MR#: [id number] : 1950 Age: 72 y.o. Referring Physician: Navin Clark MD Insurance: Payor: MEDICARE ANTHEM HMO OR PPO / Plan: MEDICARE [employer]TH[employer] HMO OR PPO / Product Type: *NoProduct [...] mouth 2 times daily. 60 tablet 1 Cshntbettjh-Mjzverbwg-Bsbacs (Trelegy Ellipta) 100-62.5-25 MCG/INH Aerosol Powder, breath [...] has No Known Allergies. [facility] History of Present illness Narrative* Rebecca Odom - 07/30/2022 1:20 PM EDT Ortho Nurse - Established Patient Intake Room#: 5 Date: 07/30/2022 1:48 PM Patient: Sd Rehman MR#: [id number] : 1950 Age: 72 y.o. 7wk R [...] mouth 2 times daily. 60 tablet 1 Vjopjqtpkqb-Kdjrmjzbv-Opkdtb (Trelegy Ellipta) 100-62.5-25 MCG/INH Aerosol Powder, breath [...] 2 times daily., Disp: 60 tablet, Rfl:1 Hdbljxeezed-Rrnnbbtge-Rzvtfl (Trelegy Ellipta) 100-62.5-25 MCG/INH Aerosol Powder, breath [...] has No Known Allergies. * Vita Joshi, PEDIATRIC NURSE-EXAMINATION SUPERVISOR - 07/30/2022 1:20 PM EDT SUBJECTIVE: Sd is an established patient of [facility]. She is here today for followup. She [...] She is still residing in the senior care. PHYSICAL EXAMINATION: GENERAL: She is alert, oriented, [...] any questions or concerns in the meantime. (DOC:[id number]) I have reviewed the findings of the clinical senior office support assistant sosa and agree with their assessment. Vita Joshi APRN-ADONIS Ortho Nurse - Established Patient Intake Room#: 5 Date: 07/30/2022 1:48 PM Patient: Sd Rehman MR#: [id number] : 1950 Age: 72 y.o. 7wk R [...] mouth 2 times daily. 60 tablet 1 Jydiphnryvl-Dusfycnnv-Ofcynl (Trelegy Ellipta) 100-62.5-25 MCG/INH Aerosol Powder, breath [...] 2 times daily., Disp: 60 tablet, Rfl:1 Sljeglmolht-Ebdrqdstr-Xzwtql (Trelegy Ellipta) 100-62.5-25 MCG/INH Aerosol Powder, breath [...] has No Known Allergies. [facility] History of Present illness Narrative* Rebecca Lei - 07/09/2022 9:00 AM EDT Ortho Nurse - Established Patient Intake Room#: 4 Date: 07/09/2022 9:21 AM Patient: Sd Rehman MR#: [id number] : 1950 Age: 72 y.o. 4wk R TKA Pt stated she is doing ok and has at time a feeling of electric shock but denies any painat this time.0/10 on the pain scale. Pt was wearing her brace and in a wheelchair at the time of visit. Referring Physician: Self, Self Insurance: Payor: MEDICARE ANTHFameBit HMO OR PPO / Plan: MEDICARE ANTH [...] mouth 2 times daily. 60 tablet 1 Awepzajpagu-Mdzjmjeha-Idomtu (Trelegy Ellipta) 100-62.5-25 MCG/INH Aerosol Powder, breath [...] 2 times daily., Disp: 60 tablet, Rfl:1 Wlsezxulfzh-Aziyhqnwm-Swkxdz (Trelegy Ellipta) 100-62.5-25 MCG/INH Aerosol Powder, breath [...] has No Known Allergies. * Vita Joshi APRN-EXAMINATION SUPERVISOR - 07/09/2022 9:00 AM EDT SUBJECTIVE: Sd is an established patient of [facility]. She is here today for followup. She [...] that time and slow advance as needed. (DOC:[id number]) I have reviewed the findings of the clinical senior office support assistant sosa and agree with their assessment. Vita Joshi APRN-ADONIS Ortho Nurse - Established Patient Intake Room#: 4 Date: 07/09/2022 9:21 AM Patient: Sd Rehman MR#: [id number] : 1950 Age: 72 y.o. 4wk R [...] mouth 2 times daily. 60 tablet 1 Rbsifrebovd-Tzbeduczj-Vhshtn (Trelegy Ellipta) 100-62.5-25 MCG/INH Aerosol Powder, breath [...] 2 times daily., Disp: 60 tablet, Rfl:1 Gtuqfpspufb-Vaqqpqxuz-Nrepxu (Trelegy Ellipta) 100-62.5-25 MCG/INH Aerosol Powder, breath [...] Known Allergies. documented in this [facility]04-05-2023 History of Present illness Narrative* Rebecca Odom - 06/25/2022 1:00 PM EDT Ortho Nurse - Established Patient Intake Room#: 4 Date: 06/25/2022 1:01 PM Patient: Sd Rehman MR#: [id number] : 1950 Age: 71 y.o. 2wk R [...] mouth 2 times daily. 60 tablet 1 Vsgotmhdeax-Emklqmqtn-Frpoca (Trelegy Ellipta) 100-62.5-25 MCG/INH Aerosol Powder, breath [...] 2 times daily., Disp: 60 tablet, Rfl:1 Wmkbdtcyqme-Febgntxie-Sdmkpn (Trelegy Ellipta) 100-62.5-25 MCG/INH Aerosol Powder, breath [...] to date. She [facility] is receiving [facility]/OT [...] dehiscence, jonah were removed by staff at [place]. There is area of bruising to the [...] I explained therapy and [facility] staff [facility] to evaluate ability to do this with protection of her ROM restriction and NWB status. Jolene at the [facility] reports will speak with nursing regarding this. [...] understanding. All pertinent portions of the clinical senior office support assistant sosa documentation was reviewed and agree. Jerilyn Baig I have reviewed the findings of the clinical senior office support assistant sosa and agree with their assessment. Jerilyn Baig I have reviewed the findings of the clinical senior office support assistant sosa and agree with their assessment. Jerilyn Baig Ortho Nurse - Established Patient Intake Room#: 4 Date: 06/25/2022 1:01 PM Patient: Sd Rehman MR#: [id number] : 1950 Age: 71 y.o. 2wk R [...] mouth 2 times daily. 60 tablet 1 Yzsslsnpwer-Tfbjqtqkp-Khblgp (Trelegy Ellipta) 100-62.5-25 MCG/INH Aerosol Powder, breath [...] 2 times daily., Disp: 60 tablet, Rfl:1 Ttmmzggxhiy-Vqqngrqwq-Xdyggf (Trelegy Ellipta) 100-62.5-25 MCG/INH Aerosol Powder, breath [...] 06/25/2022 1:01 PM Patient: Sd Rehman MR#: [id number] : 1950 Age: 71 y.o. 2wk R TKA Pt stated some days she has shooting pain that goes away, stated her pain today is a 2/10on the pain scale. Pt was wearing her van hose and in a brace & in a wheelchair at the time of visit. Referring Physician: Vita Joshi APRN-CNP Insurance: Payor: MEDICARE ANTH HMO OR PPO / Plan: MEDICARE [facility] HMO OR PPO / Product Type: *NoProduct [...] mouth 2 times daily. 60 tablet 1 Odwebktaldd-Lcmrxwytb-Rwiumu (Trelegy Ellipta) 100-62.5-25 MCG/INH Aerosol Powder, breath [...] 2 times daily., Disp: 60 tablet, Rfl:1 Tsjvmxnyybi-Jtpzsskkn-Xqsvfu (Trelegy Ellipta) 100-62.5-25 MCG/INH Aerosol Powder, breath [...] has No Known Allergies. [facility]* Nursing Notes - Erum Orozco RN - 06/11/2022 6:03 PM EDT Called to give report to facility nurse x3 and was forwarded to a , then the nurses station and no one picks up. All AVS info and discharge instructions were faxed to facility and given to EMS to provide to facility including narc scripts. Pts IV removed. [facility]03-22-[facility]23 Miscellaneous Notes* Nursing Notes - Erum Orozco [...] at this time for transport to [facility] [place]. ETA 1715 Erum RN notified. * Plan [...] determined in the discharge planning process with health and social care teacher and the multidisciplinary team. * Nursing Notes [...] 09, 2022 ATTENDING PHYSICIAN: Navin Clark M.D. STRATEGIC PLANNING DIRECTOR: Jerilyn Baig CNP PREOPERATIVE DIAGNOSIS: 1. Aseptic [...] flexion space wasthen opened up with lamina electrical line worker. A posterior synovectomy was performed. The tibia [...] oscillating saw to remove it. There was vaqdghuy-hd-mojhfz osteolysis on the medial sideof the patella [...] procedure) without the assistance of a skilled operating room surgical technologist. A operating room surgical technologist was medically necessary for positioning, retraction and [...] OPERATIVE/PROCEDURE NOTE Sd Rehman 71 y.o. female [id number] SURGEON Surgeon(s) and Role: * Navin Clark MD - Primary STRATEGIC PLANNING DIRECTOR Jerilyn Baig ANESTHESIOLOGIST PODIATRIST ASSISTANT: Micha Bailey APRN-PODIATRIST ASSISTANT SURGICAL STAFF Teachers' Assistant: Jo Downs, RN; Nicole Swanson, RN; Alon Duke, RN; Aanbelle Vasquez, DEWAYNE Nurse Practitioner: Jerilyn Baig Scrub Person: Gordon Burnett RN; Ciara Boyd LPN; Dannielle Farnsworth RN Dump Motor Operator: Yoshi Hernandez LPN PROCEDURE PERFORMED Procedure(s) (LRB): [...] Implant Name Type Inv. Item Serial No. Director Of Web Marketing Lot No. LRB No. Used Action PALACOS R & G BONE CEMENT HIGH-VISCOSITY WITH GENTAMICIN - [id number] PALACOS R & G BONE CEMENT HIGH-VISCOSITY WITH GENTAMICIN [id number] Right 1 Implanted PALACOS R & G BONE CEMENT HIGH-VISCOSITY WITH GENTAMICIN - [id number] PALACOS R & G BONE CEMENT HIGH-VISCOSITY WITH GENTAMICIN [id number] Right 1 Implanted PALACOS R & G BONE CEMENT HIGH-VISCOSITY WITH GENTAMICIN - [id number] PALACOS R & G BONE CEMENT HIGH-VISCOSITY WITH GENTAMICIN [id number] Right 1 Implanted ATTUNE knee system revision tibial base rotating platform size 2 cemented [employer] [id number] Right 1 Implanted Attune knee system revision tibial sleeve porocoat partially coated 29mm [employer] [id number] Right 1 Implanted Attune Knee System revision Pressfit stem 12mm x 60mm [employer] [id number] Right 1 Implanted Attune Knee system revision Pressfit Stem 10mm x 60mm [employer] [id number] Right 1 Implanted Attune knee system Revision CRS Femoral size 3 Right Cemented [employer] [id number] Right 1Implanted Attune Patella Medialized Dome 35mm Cemented AOX [employer] [id number] Right 1 Implanted Attune Knee system Revision Distal femoral AUgment size 3 4mm cemented [employer] [id number] Right 1 Implanted Attune knee system revision Distal femoral augment size 3 4mm Cemented [employer] [id number] Right 1 Implanted Attune knee system revision offset stem adaptor 4mm [employer] [id number] Right 1 Implanted Moldable demineralized fibers [facility] Right 1 Implanted Attune Knee system Revision CRS Rotating Platform Insert size 3 16mm AOX [employer] [id number] Right 1 Implanted SPECIMENS ID Type Source [...] assist after surgery. Patient requesting to use [facility] upon discharge. 05/15/22 0668 Information Source Information Source patient Information Source Name Sd Rehman Contact Information Candy Depositing Machine Operator/SW Added to Care Team Yes This Machine Stitcher is Primary Candy Depositing Machine Operator/SW Yes Candy Depositing Machine Operator Name Angelina Rick RN Case Manager's Living [...] needs at this time. documented in this encounterPrem[facility]03-22-2023 Note* Nursing Notes - KO Lucio - 06/11/2022 5:20 PM EDT [facility] arrives at this time. [facility]03-22-2023 History of Present illness Narrative* Augustina Mayer RN - 06/11/2022 4:45 PM EDT HENS completed, negative COVID test and updated referral information faxed to [facility]. * Augustina Mayer RN - 06/11/2022 4:21 PM EDT Gordon at [facility] updated with ETA for transport. Daughter, Jacy, called to update with time oftransport. Patient updated with time of transport, also updated that post-op appointment was changed from 3 weeks to 2 weeks. * Augustina Mayer RN - 06/11/2022 3:44 PM EDT Update received from Gordon from [facility] [place] that patient has been approved and can [...] pack donned upon exit * Semaj Pierce, MANAGER CONSUMER - 06/11/2022 10:55 AM EDT 06/11/22 1004 [...] BSC to walker with Rajan x1 and AUTOCAD TECHNICIAN assisting pt with pericare andlower body dressing. [...] Supine to Sit, Rehab Eval Level of Was[place]: Supine/Sit minimum assist (75% patients effort) Physical Assist/Nonphysical Assist: Supine/Sit 1 person assist Transfer Skill: Sit To Stand, Rehab Eval [place] (Sit-Stand Transfers) minimum assist (75% patient effort) Physical Assist/Nonphysical Assist: Sit/Stand 1 person + 1 person to manage equipment Weight-Bearing Restrictions: Sit/Stand nonweight-bearing Assistive Device For Transfer: Sit/Stand 2 wheeled walker Gait Skills, PT Eval Level of Wasatch: Gait minimum assist (75% patients effort) Physical Assist/Nonphysical Assist: Gait 2 person assist Weight-Bearing Restrictions: Gait nonweight-bearing Assistive Device For Transfer: Gait 2 wheeled walker Gait Distance (bed to BSC, BSC to chair) Gait Analysis, PT Eval Gait Pattern Used swing-to gait Stair Negotiation Wasatch Level: Stair Negotiation unable to assess Plan Plan for next visit Cont with protocol ex, gentle ROM 0-30 only, and mobility as able Maintain frequency yes * Augustina Mayer RN - 06/11/2022 10:50 AM EDT Spoke with Gordon at [facility] [place] for an update regarding insurance authorization. She states that she has not yet heard back from [place]. She will be calling at 11:30 to [...] Ptthen compelted STS to FWW and this MANAGER CONSUMER and AUTOCAD TECHNICIAN assisting pt with lower bidy dressing and [...] Supine to Sit, Rehab Eval Level of Wasatch: Supine/Sit minimum assist (75% patients effort) Physical Assist/Nonphysical Assist: Supine/Sit 1 person assist Transfer Skill: Sit To Stand, Rehab Eval [place] (Sit-Stand Transfers) minimum assist (75% patient effort) Physical Assist/Nonphysical Assist: Sit/Stand 1 person assist Weight-Bearing Restrictions: Sit/Stand nonweight-bearing Assistive Device For Transfer: Sit/Stand 2 wheeled walker Gait Skills, PT Eval Level of Wasatch: Gait minimum assist (75% patients effort) Physical Assist/Nonphysical Assist: Gait 2 person assist Weight-Bearing Restrictions: Gait nonweight-bearing Assistive Device For Transfer: Gait 2 wheeled walker Gait Distance (bed to BSC, BSC to bed) Gait Analysis, PT Eval Gait Pattern Used swing-to gait Stair Negotiation Was[place] Level: Stair Negotiation unable to assess Plan [...] Transfer Skill: Sit To Stand, Rehab Eval [place] (Sit-Stand Transfers) contact guard Physical Assist/Nonphysical Assist: Sit/Stand 2 person assist Weight-Bearing Restrictions: Sit/Stand nonweight-bearing Assistive Device For Transfer: Sit/Stand 2 wheeled walker Clinical Impression Today's Treatment Included Pt initially requesting to use the bathroom, provide instructed on sequencing for transfer to [facility] completing with CGA-min assist x2. Pt complete pant management mod assist,jennifer area hygiene SBA. Pt instructed on doffing pants and donning underwear and shorts using flamer after lasting, patient complete sit to stand for jennifer [...] Date: 06/09/2022 Date of Evaluation: 34:11 PM [facility] Rehab / Skilled bed LOS: 1 [...] Use Authorization (EUA) for the qualitative detection dfAKER-VnV-5 nucleic acid. 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 She [...] pt having difficulty with advancing L foot. AUTOCAD TECHNICIAN placing BSC behind pt and pt then transfered to seated position on commode. Pt able to void and provide self pericare. Pt then completed STS with Rajan x2 and AUTOCAD TECHNICIAN asissting pt with lower body dressing. Pt [...] Supine to Sit, Rehab Eval Level of Wasatch: Supine/Sit minimum assist (75% patients effort) Physical Assist/Nonphysical Assist: Supine/Sit 1 person assist Transfer Skill: Sit To Stand, Rehab Eval [place] (Sit-Stand Transfers) minimum assist (75% patient effort) Physical Assist/Nonphysical Assist: Sit/Stand 2 person assist Weight-Bearing Restrictions: Sit/Stand nonweight-bearing Assistive Device For Transfer: Sit/Stand 2 wheeled walker Gait Skills, PT Eval Level of Wasatch: Gait minimum assist (75% patients effort) Physical Assist/Nonphysical Assist: Gait 2 person assist Weight-Bearing Restrictions: Gait nonweight-bearing Assistive Device For Transfer: Gait 2 wheeled walker Gait Distance 5 feet Gait Analysis, PT Eval Gait Pattern Used swing-to gait Stair Negotiation Wasatch Level: Stair Negotiation unable to assess Plan Plan for next visit Cont with protocol ex, gentle ROM 0-30 only, and mobility as able Maintain frequency yes * Augustina Mayer RN - 06/10/2022 10:18 AM EDT Update received from Gordon at [facility] [place]. She states that they can accept the patientwill start precert today. She will continue to update. Met with patient and daughter, Angela to update. SHAR Cha present during conversation, he recommends that patient transport with ambulance when discharging d/t weight bearing precautions and restrictions. * Augustina Mayer RN - 06/10/2022 9:15 AM EDT Spoke with staff at [facility], who state that referral has been [...] she would like to go to [facility] [place]. Patient will need a wheeled walker, explained that if patient goes to a SNF, this equipment will need to come from location of discharge, she verbalizes understanding and denies any equipment needs at this time. Nursing reports that the incision has been closed with jonah with hemovac in place, will request a 3 week follow up appointment. [place] to be removed at facility of discharge. Patient denies any other questions or needs at this time. Referral faxed to [facility]. Follow up appointment scheduled for 07/03/22 [...] Supine to Sit, Rehab Eval Level of Wasatch: Supine/Sit contact guard Transfer Skill: Sit To Stand, Rehab Eval [place] (Sit-Stand Transfers) minimum assist (75% patient effort) Weight-Bearing Restrictions: Sit/Stand nonweight-bearing Assistive Device For Transfer: Sit/Stand 2 wheeled walker Gait Skills, PT Eval Level of Was[place]: Gait minimum assist (75% patients effort) Physical [...] NWB RLE. Therapist Information [place] # [id number] PT Goals: 1. Patient will perform all [...] TKA Surgical Procedure right knee revision, per EXAMINATION SUPERVISOR has a tibial fracture Past Surgical History [...] Available straight cane;axillary crutches;shower chair;hand held shower hose;flamer after lasting;sock-aid;long-handled shoe horn (high rise toilet) Cognitive Status [...] Sit to Stand, Rehab Eval Level of Was[place]: Sit/Stand contact guard Physical Assist/Nonphysical Assist: Sit/Stand 1 person assist Weight-Bearing Restrictions: Sit/Stand nonweight-bearing Assistive Device for Transfer: Sit/Stand wheeled walker Upper Body Dressing Level of Was[place] independent Physical Assist/Nonphysical Assist set-up required (in sitting) Lower Body Dressing Level of Wasatch maximum assist (25% patients effort) Physical Assist/Nonphysical [...] hygiene training Therapist Information License # [id number] 1. Pt will complete LB dressing mod [...] was originally planning to return home with [facility], with these new developments they do [...] making a referral. Daughter, Angela, provides number ([phone]). She states that she will be staying [...] 9.6 oz) 01/02/22 104.3 kg (230 lb) [place] body weight: 47.8 kg (105 lb 6.1 [...] and cardiology pending. Thanks documented in this [facility]03-22-2023 Hospital course Narrative* Perry Henderson MD - 06/11/2022 4:21 PM EDT Images from the original note were not included. Discharge Summary Name: Sd Rehman Age: 71 y.o. Birthday: 1950 Admit Date: 06/09/2022 10:20 AM Discharge Date: 06/11/2022 Discharge Time: 06/11/2022 Discharge Unit: [facility] Inpatient Rehab unit Unit Length of Stay: LOS: 2 days Admission Information Admitting Physician: Navin Clark MD Discharge Information Discharge Physician: Perry Henderson MD Problem List Active Hospital Problems Diagnosis Benign hypertension Mixed hyperlipidemia Idiopathic chronic gout of multiple sites without tophus FDC (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 non-steroidal anti-inflammatories (nsaid) Stage [...] of NSAIDs atrial fibrillation COPD admitted to [facility] for elective right knee revision Dr. Clark June 09. After this surgery patient complains of no chest pain or shortness of breath no palpitations no abdominal pain no nausea, vital signs and labs monitored, patient worked with physical therapy , determination was made that patient wouldbenefit from skilled nurse [facility]. Patient will be discharge to [facility] nurse [facility] June 11 the follow-up primary care and [...] inhaler Inhale 1 puff daily. Generic drug: kbhrualgswc-wojcvhhgf-Yoqpdi STOP taking these medications acetaminophen 650 MG tab ER Commonly known as: TYLENOL Replaced by: Acetaminophen 325 MG tablet Cholecalciferol 25 MCG (1000 UT) CAPS Notes to patient: May resume taking 06/23/2022. Meloxicam 15 MG TABS Commonly known as: MOBIC traMADol 50 MG TABS Commonly known as: ULTRAM Follow-up: Other [facility] [address] [facility] [address] [facility] Patrick Abarca, DO [address] [facility] [facility] [address] [facility] [address] Follow up in 1 week(s) Navin Clark MD [address] [facility] [address] Follow up in 3 week(s) Upcoming Appointments (up to five)-Some appointments for Medical Center outpatient clinics or diagnostic testing locations are not displayed below Provider Department Dept Phone 06/25/2022 1:00 PM Jerilyn Baig [facility] [phone] Total coordination of discharge care taking greater that 35 minutes documented in this encounterPremier [facility]03-22-2023 Note* Nursing Notes - KO Lucio - 06/11/2022 4:09 PM EDT Called [facility] at this time for transport to [facility]. ELVIS 171Sharon Danielson RN notified. [facility]03-22-2023 Note* Plan of Care - Erum Orozco [...] 06/09/2022 7:08 PM Outcome: Adequate for Discharge [facility]03-22-2023 Note* Nursing Notes - Carley [...] at this time. Call light within reach. [facility]03-22-2023 Note* Nursing Notes - Carley Miller RN - 06/11/2022 2:50 AM EDT Pt assessment remains unchanged with any exceptions noted in flowsheets. Pt is resting in bed with CPAP on. Ice pack changed and applied to R. Knee. Foot pumps on. Denies any pain or needs at this time. Call light within reach. [facility]03-21-2023 Note* Nursing Notes - Carley Miller RN - 06/10/2022 9:43 PM EDT Pt assessment complete. POC reviewed with pt. Ice pack changed and applied to R. Knee. Foot pumps on. TROM in place. CPAP on. Denies any pain or needs at this time. Bed alarm set. Call light within reach. [facility]03-21-2023 Note* Therapy Note - Elena Langley RRT - 06/10/2022 7:38 PM EDT Paper signed for pt to use home CPAP [facility]03-21-2023 Note* Nursing Notes - Prerna Holden RN - 06/10/2022 1:05 PM EDT Assessment is complete and remains unchanged from previous at this time with any exceptions noted in the flowsheet. Patient denies further needs and is left with call light and personals in reach. [facility]03-21-2023 Hospital Discharge instructions* Discharge Instructions* [...] your recovery is progressing at home. CONTACT BEEF SKINNER FOR FURTHER INSTRUCTION ONCE POST-OP ELIQUIS IS [...] - 06/10/2022 9:45 AM EDT Contact Office ([phone]) if: > Total Knee ROM < 90 [...] 10-14 days after you surgery at the [facility] facility. Your surgery day was 06/09/2022. [...] in your TROM brace. [facility]* Certification - Navin Clark MD - 06/10/2022 6:40 AM EDT I certify that this patient requires inpatient services at this time. Patient is having a Medicare Inpatient Only procedure. Plans for post hospitalization care will be determined in the discharge planning process with health and social care teacher and the multidisciplinary team. [employer] Work Phone: 1(758) 667-162803-21-2023 Note* Nursing Notes - Carley Miller RN - 06/10/2022 4:45 AM EDT Pt assessment remains unchanged with any exceptions noted in flowsheets. Ice pack changed and applied to R. Knee. Foot pumps on. TROM in place. Denies any pain or needs at this time. Call light within reach. [employer]03-20-2023 Note* Nursing Notes - Carley Miller RN - 06/09/2022 11:01 PM EDT Pt assessment remains unchanged with any exceptions noted in flowsheets. Pt states pain is 2/10 andtolerable. Ice pack changed and applied to R. Knee. TROM in place. Foot pumps on. Denies any needs at this time. Call light within reach. Bed alarm set. [facility]03-20-2023 Note* Nursing Notes - Carley Miller RN - 06/09/2022 10:00 PM EDT Pt refuses to wear CPAP d/t loud noise and unable to sleep. Pt on RA and O2 sat is 92%. [facility]03-20-2023 Note* Nursing Notes - Carley Miller RN - 06/09/2022 8:17 PM EDT Pt assessment complete. POC reviewed with pt. Pt c/o / pain to R. Knee. Medication given- see MAR. TROM in place. Ice pack changed and applied to R. Knee. Foot pumps on. Bed alarm set. Denies any further needs at this time. Call light within reach. [facility]03-20-2023 Note* Nursing Notes - Carley Miller RN [...] Henderson states this is okay with him. [facility]03-20-2023 Note* Op Note - Navin Clark MD - 06/09/2022 7:52 PM EDT DATE OF PROCEDURE: June 09, 2022 ATTENDING PHYSICIAN: Navin Clark M.D. STRATEGIC PLANNING DIRECTOR: Jerilyn Baig CNP PREOPERATIVE DIAGNOSIS: 1. Aseptic [...] flexion space wasthen opened up with lamina electrical line worker. A posterior synovectomy was performed. The tibia [...] oscillating saw to remove it. There was soowrxpf-wo-xyrvqw osteolysis on the medial sideof the patella [...] procedure) without the assistance of a skilled operating room surgical technologist. A operating room surgical technologist was medically necessary for positioning, retraction and instrum entation. [employer]03-20-2023 Note* Nursing Notes - Prerna Holden RN [...] light and personals in reach. Will monitor. [facility]03-20-2023 Nurse Note* Martha Unger RN - 06/09/2022 [...] deg F, humidity 47% documented in this encounterPremier Health [facility]03-20-2023 Nurse Surgical operation note* Martha Unger RN - 06/09/2022 4:58 PM EDT This nurse transfers patient from PACU to room 3755. Patient's family is at bedside. Patient is alert,oriented and stable. Anesthesia SBAR and bedside report is given to Prerna BUCHANAN. Bed is locked, inlowest position and call light in reach of patient [facility]03-20-2023 Consult note* Perry Henderson MD - 06/09/2022 4:57 PM EDT History and Physical Examination 06/09/22 4:57 PM Chief Complaint: Right knee revision History of Present Illness: Patient is a 71 y.o. female presents for [facility] for right knee revision Dr. Clark June [...] of multiple sites without tophus 06/09/2022 intermediate teacher (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 non-steroidal anti-inflammatories (nsaid) 06/09/2022 [...] by mouth daily. 11/05/21 Yes Historical Provider Fudkrwpdbst-Vzuxikssk-Castgr (Trelegy Ellipta) 100-62.5-25 MCG/INH Aerosol Powder, breath [...] capsule by mouth daily. 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 Perry Henderson MD [facility]03-20-2023 Consult note* Perry Henderson MD - 06/09/2022 4:57 PM EDT History and Physical Examination 06/09/22 4:57 PM Chief Complaint: Right knee revision History of Present Illness: Patient is a 71 y.o. female presents for [facility] for right knee revision Dr. Clark June [...] of multiple sites without tophus 06/09/2022 intermediate teacher (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 non-steroidal anti-inflammatories (nsaid) 06/09/2022 [...] by mouth daily. 11/05/21 Yes Historical Provider Ckhkzujpcsw-Glecsaolf-Dmhpop (Trelegy Ellipta) 100-62.5-25 MCG/INH Aerosol Powder, breath [...] capsule by mouth daily. 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 Antonio-Tawanda Henderson MD documented in this encounterPremier Health [facility]03-20-2023 Nurse Surgical operation note* Alon Duke RN - 06/09/2022 4:34 PM EDT Patient transported to PACU with Micha CARBONE. Report given to Martha BUCHANAN at 1628H. [facility]03-20-2023 Note* Brief Op Note - Jerilyn Baig - 06/09/2022 4:28 PM EDT POST OPERATIVE/PROCEDURE NOTE Sd Wagnerpebbles 71 y.o. female [id number] SURGEON Surgeon(s) and Role: * Navin Clark MD - Primary STRATEGIC PLANNING DIRECTOR Jerilyn Baig ANESTHESIOLOGIST PODIATRIST ASSISTANT: Micha Bailey APRN-TONA SURGICAL STAFF Teachers' Assistant: Jo Downs RN; Nicole Swanson, DEWAYNE; Alon Duke RN; Anabelle Vasquez RN Nurse Practitioner: Jerilyn Baig Scrub Person: Gordon Burnett RN; Ciara Boyd LPN; Dannielle Farnsworth RN Dump Motor Operator: Yoshi Hernandez LPN PROCEDURE PERFORMED Procedure(s) (LRB): [...] Implant Name Type Inv. Item Serial No. Director Of Web Marketing Lot No. LRB No. Used Action PALACOS R & G BONE CEMENT HIGH-VISCOSITY WITH GENTAMICIN - [id number] PALACOS R & G BONE CEMENT HIGH-VISCOSITY WITH GENTAMICIN [id number] Right 1 Implanted PALACOS R & G BONE CEMENT HIGH-VISCOSITY WITH GENTAMICIN - [id number] PALACOS R & G BONE CEMENT HIGH-VISCOSITY WITH GENTAMICIN [id number] Right 1 Implanted PALACOS R & G BONE CEMENT HIGH-VISCOSITY WITH GENTAMICIN - [id number] PALACOS R & G BONE CEMENT HIGH-VISCOSITY WITH GENTAMICIN [id number] Right 1 Implanted ATTUNE knee system revision tibial base rotating platform size 2 cemented [employer] [id number] Right 1 Implanted Attune knee system revision tibial sleeve porocoat partially coated 29mm [employer] [id number] Right 1 Implanted Attune Knee System revision Pressfit stem 12mm x 60mm [employer] [id number] Right 1 Implanted Attune Knee system revision Pressfit Stem 10mm x 60mm [employer] [id number] Right 1 Implanted Attune knee system Revision CRS Femoral size 3 Right Cemented [employer] [id number] Right 1Implanted Attune Patella Medialized Dome 35mm Cemented AOX [employer] [id number] Right 1 Implanted Attune Knee system Revision Distal femoral AUgment size 3 4mm cemented [employer] [id number] Right 1 Implanted Attune knee system revision Distal femoral augment size 3 4mm Cemented [employer] [id number] Right 1 Implanted Attune knee system revision offset stem adaptor 4mm [employer] [id number] Right 1 Implanted Moldable demineralized fibers besomebody.[facility] [employer] Right 1 Implanted Attune Knee system Revision CRS Rotating Platform Insert size 3 16mm AOX [employer] [id number] Right 1 Implanted SPECIMENS ID Type Source Tests Collected by Time Destination A : right knee incisional fluid (1-2) Surgical Wound SURGICAL WOUND FUNGUS CULTURE, ANAEROBE CULTURE, BACTERIAL CULTURE AND DIRECT SMEAR, LESION, TISSUE, DEVICE Navin Clark MD 06/09/2022 5254 B : right knee medial synovium (1-3) Surgical Wound SURGICAL WOUND FUNGUS CULTURE, ACID FAST CULTURE, ANAEROBE CULTURE, BACTERIAL CULTURE AND DIRECT SMEAR, LESION, TISSUE, DEVICE Navin Clark MD 06/09/2022 1409 C : right knee lateral synovium (1-3) Surgical Wound SURGICAL WOUND FUNGUS CULTURE, ACID FAST CULTURE, ANAEROBE CULTURE, BACTERIAL CULTURE AND DIRECT SMEAR, LESION, TISSUE, DEVICE Navin Clark MD 06/09/2022 1410 Jerilyn M Safia June 09, 2022 4:28 PM [facility]03-20-2023 Nurse Surgical operation note* Jo Downs RN - 06/09/2022 1:10 PM EDT OR3 temp 67 deg F, humidity 47% [facility]03-20-2023 Note* Certification - Perry Henderson MD - [...] be discharge to home with home health. [facility]02-23-2023 Note* Nursing Notes - Angelina [...] assist after surgery. Patient requesting to use [facility] health upon discharge. 05/15/22 7960 Information Source Information Source patient Information Source Name Sd Campbellvivekpebbles Contact Information Candy Depositing Machine Operator/SW Added to Care Team Yes This Machine Stitcher is Primary Candy Depositing Machine Operator/SW Yes Candy Depositing Machine Operator Name Angelina Rick RN Case Manager's Living [...] other questions or needs at this time. [facility]02-10-2023 NoteHNO ID: [id number] Author: Dennis Lomas MD Service: ? Author Type: Physician Type: Progress Notes Filed: 05/10/2022 10:42 AM Note Text: NAME: Sd Rehman CLINIC NO.: [id number] DATE OF SERVICE: May 02, 2022 (Feliciano) [...] 90 mcg/actuation inhaler alb (more content not included)...[place] [address]-10-2023 Instructions* Patient Instructions* Dennis Lomas MD - 05/02/2022 3:06 PM EST Proceed with knee replacement / repair as scheduled. RTC in week of july 2022 Repeat labs documented in this encounter[facility] History of Present illness Narrative* Dennis Lomas MD - 05/02/2022 2:56 PM EST Images from the original note were not included. NAME: Sd Rehman [facility] NO.: [id number] DATE OF SERVICE: May 02, 2022 (Feliciano) [...] mg capsule Take 60 mg by mouth. whkdlsmdlup-ldcenxjbo-orsufbrt (TRELEGY ELLIPTA) 100-62.5-25 mcg inhalation powder 1 [...] which included preparing to see the patient, xbyf-ui-lxtu patient care, completing clinical documentation, obtaining and/or reviewing separately obtained history, performing a medically appropriate examination, counseling and educating the pat ient/family/caregiver, ordering medications, tests, or procedures, and independently interpreting results (not separately reported). Dennis Lomas MD, CPE Hematology and Oncology Services Provided at: [place], [place] CC: Odell Jones MD [address] [facility] [address] Olivia Fatima, EXAMINATION SUPERVISOR [address] [facility] [address] Patrick Barba (ortho) documented in this encounterGreen [facility]12-09-2022 NoteHNO ID: [id number] Author: Dennis Lomas MD Service: ? Author Type: Physician Type: Progress Notes Filed: 03/11/2022 8:25 AM Note Text: NAME: Sd Rehman NO.: [id number] DATE OF SERVICE: February 28, 2022 (Feliciano) [...] 120 mg tablet Jamey (more content not included)...[facility]12-09-2022 Instructions* Patient Instructions* Dennis Lomas MD - 02/28/2022 3:52 PM EST Labs in April on return RTC same day documented in this encounterGreen [facility]12-09-2022 History of Present illness Narrative* Dennis Lomas MD - 02/28/2022 3:32 PM EST Images from the original note were not included. NAME: Sd Rehman [facility] NO.: [id number] DATE OF SERVICE: February 28, 2022 (Feliciano) Referring Provider: Odell Jones Consultation requested by Dr. Jones for an opinion regarding Ms. Sd Rehman, and my final recommendations will be communicated back to the requesting physician by way of shared medical record or letter via US mail. Additional Clinicians involved in dS Rehman's care: Olivia Devries DIAGNOSIS: leukocytosis ASSESSMENT: [...] mg capsule Take 60 mg by mouth. ujjmkkfkoyh-nvrtwjnbc-osmyaqxu (TRELEGY ELLIPTA) 100-62.5-25 mcg inhalation powder 1 [...] which included preparing to see the patient, zmni-ml-esre patient care, completing clinical documentation, obtaining and/or reviewing separately obtained history, performing a medically appropriate examination, counseling and educating the pat ient/family/caregiver, ordering medications, tests, or procedures, and independently interpreting results (not separately reported). Dennis Lomas MD, CPE Hematology and Oncology Services Provided at: [place], [place] CC: Odell Jones MD [address] [place] [address] Olivia Fatima, EXAMINATION SUPERVISOR [address] [place] [address] documented in this encounterGreen [facility]11-30-2022 History of Present illness Narrative* Estrella [...] 02/19/2022 2:22 PM Patient: Sd Rehman MR#: [id number] : 1950 Age: 71 y.o. Referring Physician: [...] DR Take 60 mg by mouth daily. Bvyoaelbirk-Uaiwrvgnf-Qkjveq (Trelegy Ellipta) 100-62.5-25 MCG/INH Aerosol Powder, breath [...] she was evaluated by Dr. Burrows in [place] for vascular workup (I made a referral [...] - recently evaluated by Dr. Burrows in [place]. 3.) Obesity, increased BMI - weight goal [...] for [facility] and the potential surgical date, and reviewing [...] mg by mouth daily., Disp: , Rfl: Gsppxncynef-Tqhddfjoj-Meulqw (Trelegy Ellipta) 100-62.5-25 MCG/INH Aerosol Powder, breath [...] Known Allergies documented in this [facility]10-13-2022 History of Present illness Narrative* Estrella Mendoza [...] 01/02/2022 2:37 PM Patient: Sd Rehman MR#: [id number] : 1950 Age: 71 y.o. Referring Physician: [...] [x]cane, []bracing Are you followed by a cut tobacco bulker? [x] [] Name: [facility] cardiology Are you followed by pain management? [x] [] Name: Are you followed by any other specialists? [x] [] Name: Nephrology--Dr. Jones--[place] Medications Prior to Visit Medication Sig [...] DR Take 60 mg by mouth daily. Ljubltszkfg-Nmhdmvxci-Ihgjxe (Trelegy Ellipta) 100-62.5-25 MCG/INH Aerosol Powder, breath [...] mg by mouth daily., Disp: , Rfl: Mtuguwcwfgy-Diznekslb-Qhxmmp (Trelegy Ellipta) 100-62.5-25 MCG/INH Aerosol Powder, breath [...] Rfl: No Known Allergies [facility] in [facility] NoteEducation Materials Cardiovascular Hypertension, Adult Hypertension is [...] doctor. This is important. Medicines ? Take hmpj-loz-enspnqj and prescription medicines only as told by [...] pressure forces your h (more content not included)...[id number] NoteOPERATIVE NOTE OPERATION DATE: 12/03/2021 PRIMARY CARE [...] to the recovery room in good condition.[id number] Evaluation note * Encounter Date Diagnosis Assessment [...] stenosis without neurogenic claudication (ICD-10 - M48.061) [facility] Other 07-07-2022 Evaluation note* Encounter Date Diagnosis [...] I have ordered a work-up for it. [facility] Other 12-02-2021 Evaluation note* Encounter Date Diagnosis [...] goal. Continue current dose of the allopurinol. [facility] Other 09-27-2021 Evaluation note* Encounter Date Diagnosis [...] Patient care instructions given in writting by [facility] document [facility] Other Evaluation noteNo InformationNort Inkblazers Other Evaluation note* Diagnosis Pain in prosthetic joint, sequela- Primary documented in this encounter [facility]* Diagnosis Pain in prosthetic joint, sequela- Primary [facility] in this encounter [facility]* Diagnosis Bandemia- Primary Chronic obstructive pulmonary disease, unspecified COPD type (HCC) Macrocytosis without anemia Other specified diseases of blood and blood-forming organs documented in this encounter [facility]* Diagnosis Bandemia- Primary documented in this encounter [facility]* Diagnosis Acute postoperative pain of right knee- Primary Preop testing Preoperative examination, unspecified Other mechanical complication of internal right knee prosthesis, initial encounter COPD mixed type Chronic airway obstruction, not elsewhere classified Paroxysmal atrial fibrillation Atrial fibrillation Hyponatremia Hyposmolality and/or hyponatremia Stage 3a chronic kidney disease intermediate teacher (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 non-steroidal anti-inflammatories (nsaid) Idiopathic chronic gout of multiple sites without tophus Chronic gouty arthropathy without mention of tophus (tophi) Mixed hyperlipidemia Benign hypertension Essential hypertension, benign Benign hypertension Essential hypertension, benign Mixed hyperlipidemia Idiopathic chronic gout of multiple sites without tophus Chronic gouty arthropathy without mention of tophus (tophi) FDC (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 non-steroidal anti-inflammatories (nsaid) Stage 3a chronic kidney disease Hyponatremia Hyposmolality and/or hyponatremia Paroxysmal atrial fibrillation Atrial fibrillation COPD mixed type Chronic airway obstruction, not elsewhere classified Other mechanical complication of internal right knee prosthesis, initial encounter documented in this encounter [facility]* Diagnosis Hx of total knee arthroplasty, right- Primary documented in this encounter [facility]* Diagnosis Hx of total knee arthroplasty, right- Primary documented in this encounter [facility]* Diagnosis Hx of total knee arthroplasty, right- Primary documented in this encounter [facility]* Diagnosis Hx of total knee arthroplasty, right- Primary documented in this encounter [facility]* Diagnosis Onset Date Resolution Status CKD (chronic kidney disease) stage 3, GFR 30-59 ml/min acute Gout acute [id number] acute Iron deficiency acute Proteinuria acute Secondary hyperparathyroidism acute [facility] Work Phone: Evaluation note* Diagnosis Onset Date Resolution Status CKD (chronic kidney disease) stage 3, GFR 30-59 ml/min acute Gout acute Hyperlipidemia acute [id number] acute Proteinuria acute Secondary hyperparathyroidism acute [facility] Work Phone: Hisovhl general Narrative - Reported* Type Description Date [...] History CELLULITIS X2 2017 Hospitalization History osteomyelitis [facility] Other history general Narrative - Reported* Type [...] History CELLULITIS X2 2017 Hospitalization History osteomyelitis [facility] Other history general Narrative - Reported* Type [...] History CELLULITIS X2 2017 Hospitalization History osteomyelitis [facility] Other InstructionsNot on filedocumented in this encounter [facility] for referral (narrative)* Consultation (Routine) - Closed Specialty Diagnoses / Procedures Referred By Korin maldonado Referred To Contact Cardiovascular Medicine Diagnoses Pain in prosthetic joint, sequela Navin Clark MD [address] [place] [phone] Jefry Bates MD [address] [place] [phone] Referral ID Status Reason Start Date Expiration Date Visits Re quested Visits Authorized [id number] Closed 01/02/2022 01/27/2023 1 1 Scheduling Instructions . * Diagnostic X-Ray (Routine) - Pending Review Specialty Diagnoses / Procedures Referred By Korin maldonado Referred To Contact Diagnoses Pain in prosthetic joint, sequela Procedures XR BONE LENGTH STUDY Navin Clark MD [address] [place] [phone] Referral ID Status Reason Start Date Expiration Date V isits Requested Visits Authorized [id number] Pending Review 12/27/2021 01/21/2023 1 1 * Diagnostic X-Ray (Routine) - Pending Review Specialty Diagnoses / Procedures Referred By Korin maldonado Referred To Contact Diagnoses Pain in prosthetic joint, sequela Procedures XR KNEE RIGHT 3 VIEWS Navin Clark MD [address] [place] [phone] Referral ID Status Reason Start Date Expiration Date V isits Requested Visits Authorized [id number] Pending Review 12/27/2021 01/21/2023 1 1 [facility]* Auth/Cert Specialty Diagnoses / Procedures Referred By Korin maldonado Referred To Contact Diagnoses Other mechanical complication of internal right knee prosthesis, initial encounter Other mechanical complication of internal right knee prosthesis, initial encounter [T84.582A] Procedures DE REVISE KNEE JOINT REPLACE,ALL PARTS REVISION ARTHROPLASTY KNEE Navin Clark MD [address] [place] [address] Referral ID Status Reason Start Date Expiration Date Visits Re quested Visits Authorized [id number] 03/12/2022 1 1 [facility] Summary Purpose Family History No Family History [...] FoundDocuments on File Type Date Recorded Patient Tree Wrapper Expl anation Advance Directives/Living Will 06/09/2022 10:21 AM Latest Code Status on File Code Status Date Activated Date Inactivated Comments Full Code 06/09/2022 4:37 PM Documents on File Type Date Recorded Patient Tree Wrapper Expl anation Advance Directives/Living Will 06/09/2022 10:21 AM LIVING WILL Documents on File Type Date Recorded Patient Tree Wrapper Expl anation Advance Directives/Living Will 06/09/2022 10:21 [...] XR KNEE RIGHT 3 VIEWS Jerilyn Baig [address] [place] [address] Referral ID Status Reason Start Date Expiration Date V isits Requested Visits Authorized [id number] New Request 06/13/2022 07/08/2023 1 1 Specialty Diagnoses / Procedures Referred By Korin maldonado Referred To Contact Physical Therapy Diagnoses Acute postoperative pain of right knee Jerilyn Baig [address] [place] [address] Referral ID Status Reason Start Date Expiration Date V isits Requested Visits Authorized [id number] New Request 06/09/2022 07/04/2023 1 1 Scheduling Instructions . Specialty Diagnoses / Procedures Referred By Korin t Referred To Contact Diagnoses Pain in prosthetic joint, sequela Procedures XR KNEE RIGHT 2 VIEWS XR KNEE RIGHT 3 VIEWS Navin Clark MD [address] [place] [address] Referral ID Status Reason Start Date Expiration Date V isits Requested Visits Authorized [id number] New Request 02/07/2022 03/04/2023 1 1 Chief Complaint and Reason for Visit Chief Complaint RENAL F/U Reason for Visit CKD (chronic kidney disease) stage 3, GFR 30-59 ml/min Gout [id number] Iron deficiency Proteinuria Secondary hyperparathyroidism Chief Complaint RENAL F/U Unknown Reason for Visit CKD (chronic kidney disease) stage 3, GFR 30-59 ml/min Gout Hyperlipidemia [id number] Proteinuria Secondary hyperparathyroidism Additional Source Comments INFORMATION SOURCE (unrecogn ized section and content) DATE CREATED AUTHOR 09/16/2017 [facility] DATE CREATED AUTHOR AUTHOR'S ORGANIZ ATION 10/16/2019 [facility] DATE CREATED AUTHOR AUTHOR'S ORGANIZ ATION 12/28/2021 [facility] DATE CREATED AUTHOR AUTHOR'S ORGANIZ ATION 03/14/2022 [facility] DATE CREATED AUTHOR AUTHOR'S ORGANIZ ATION 05/11/2022 [facility] DATE CREATED AUTHOR AUTHOR'S ORGANIZ ATION 06/04/2022 [facility] DATE CREATED AUTHOR AUTHOR'S ORGANIZ ATION 07/24/2023 [facility] DATE CREATED AUTHOR AUTHOR'S ORGANIZ ATION 08/25/2023 [facility] DATE CREATED AUTHOR AUTHOR'S ORGANIZ ATION 09/14/2023 [facility] DATE CREATED AUTHOR AUTHOR'S ORGANIZ ATION 09/21/2023 [facility] DATE CREATED AUTHOR AUTHOR'S ORGANIZ ATION 09/25/2023 [facility] DATE CREATED AUTHOR AUTHOR'S ORGANIZ ATION 10/26/2023 [facility] REASON FOR VISIT (unrecogniz ed section and content) Specialty Diagnoses / Procedures Referred By Contac t Referred To Contact Diagnoses Pain in prosthetic joint, sequela Procedures XR BONE LENGTH STUDY Navin Clark MD [address] [place] [phone] Referral ID Status Reason Start Date Expiration Date V isits Requested Visits Authorized [id number] Pending Review 12/27/2021 01/21/2023 1 1 Reason Comments Pain New Patient Reason Comments Pain Reason Comments Consult Specialty Diagnoses / Procedures Referred By Contac t Referred To Contact Nuclear Medicine Diagnoses Hx of total knee arthroplasty, right Abnormal laboratory test result Pain in prosthetic joint, subsequent encounter Procedures NUC WBC STUDY DE ABSCESS IMAGING, WHOLE BODY Vita Joshi, PEDIATRIC NURSE-EXAMINATION SUPERVISOR [address] [place] [phone] [facility] Nuclear Medicine [address] [place] [address] Referral ID Status Reason Start Date Expiration Date Visits Re quested Visits Authorized [id number] Closed 02/28/2022 03/25/2023 2 2 Reason Comments Bandemia Reason Comments Follow-up Reason Comments Follow-up Specialty Diagnoses / Procedures Referred By Contac t Referred To Contact Diagnoses Hx of total knee arthroplasty, right Procedures XR KNEE RIGHT 3 VIEWS Navin Clark MD [address] [place] [phone] Referral ID Status Reason Start Date Expiration Date V isits Requested Visits Authorized [id number] New Request 08/26/2022 09/20/2023 1 1 Reason Comments Post Op Visit Condition Update Referral ID Status Reason Start Date Expiration Date V isits Requested Visits Authorized [id number] New Request 09/30/2022 10/25/2023 1 1 Reason Onset Date Comments Med Refill 06/08/2023 Specialty Diagnoses / Procedures Referred By Contac t Referred To Contact Diagnoses Hx of total knee arthroplasty, right Procedures XR KNEE RIGHT 3 VIEWS Vita Joshi, PEDIATRIC NURSE-EXAMINATION SUPERVISOR [address] [place] [phone] Referral ID Status Reason Start Date Expiration Date V isits Requested Visits Authorized [id number] New Request 07/14/2023 08/07/2024 1 1 Care Teams (unrecognized sec tion and content) Parts Room Associate Relationship Specialty Start Date End Date Patrick Odom DO [address] [place] [address] [place] [address] PCP - General Family Medicine 01/02/22 Parts Room Associate Relationship Specialty Start Date End Date Patrick Odom DO [address] [place] [address] [place] [address] PCP - General Family Medicine 01/02/22 Parts Room Associate Relationship Specialty Start Date End Date Patrick Odom DO [address] [place] [address] [place] [address] PCP - General Family Medicine 01/02/22 Parts Room Associate Relationship Specialty Start Date End [place] [address] [place] [address] PCP - General Family Medicine 02/25/22 Parts Room Associate Relationship Specialty Start Date End [place] [address] PCP - General Family Medicine 02/25/22 Parts Room Associate Relationship Specialty Start Date End Date Patrick Odom DO [address] [place] [address] [place] [address] PCP - General Family Medicine 01/02/22 Parts Room Associate Relationship Specialty Start Date End Date Olivia [place] [address] PCP - General Family Medicine 02/25/22 Parts Room Associate Relationship Specialty Start Date End Date Patrick Odom DO [address] [place] [address] [place] [address] PCP - General Family Medicine 01/02/22 Parts Room Associate Relationship Specialty Start Date End Date Patrick Odom DO [address] [place] [address] [place] [address] PCP - General Family Medicine 01/02/22 Parts Room Associate Relationship Specialty Start Date End Date Patrick Odom DO [address] [place] [place] [address] [place] [address] PCP - General Family Medicine 01/02/22 Parts Room Associate Relationship Specialty Start Date End Date Patrick Odom DO [address] [place] [place] [address] [place] [address] PCP - General Family Medicine 01/02/22 Parts Room Associate Relationship Specialty Start Date End Date Patrick Odom DO [address] [place] [address] [place] [address] PCP - General Family Medicine 01/02/22 Parts Room Associate Relationship Specialty Start Date End Date BehzadsanjanaPatrick DO [address] [place] [address] [place] [address] PCP - General Family Medicine 01/02/22 Parts Room Associate Relationship Specialty Start Date End Date Behzadsanjana Patrick DO [place] [address] [place] [address] PCP - General Family Medicine 06/13/16 Parts Room Associate Relationship Specialty Start Date End Date Patrick Odom DO [address] [place] [address] PCP - General Family Medicine 01/02/22 Parts Room Associate Relationship Specialty Start Date End Date Patrick Odom DO [address] [place] [address] PCP - General Family Medicine 01/02/22 Team [...] or prosecute any alcohol or drug abuse patient.[facility] HospitalIn the event this information is protected by the Federal Confidentiality of Alcohol and Drug Abuse Patient Records regulations: The Federal rules restrict any use of the information to criminally investigate or prosecute any alcohol or drug abuse patient.[facility] HospitalIn the event this information is protected by the Federal Confidentiality of Alcohol and Drug Abuse Patient Records regulations: The Federal rules restrict any use of the information to criminally investigate or prosecute any alcohol or drug abuse patient.[facility] Scheduled Active and Recently Administ ered [...] Prerna Holden RN)1749 (Given - Provider: Prerna Holedn RN)2144 (Given - Provider: Carley Miller RN) [...] Provider: Prerna Holden RN)1300 (Stopped - Provider: Prrena Holden RN) Continuous Medication Order 06/09/2022 06/10/2022 [...] RN)1342 ($$New Bag$$ - Provider: Micha Bailey APRN-PODIATRIST ASSISTANT)1817 (Rate/Dose Verify - Provider: Prerna Holden RN) 08 (Stopped - Provider: Preran Holden RN) Sodium chloride 0.9% IV solution [...] 2 g, Intravenous, Administer over 30 Minutes, BANK CONSULTANT TO PROCEDURE, 1 dose, Starting on Thu06/09/22 at 1056, Until Discontinued, Other, Pre-operative antibiotic, For 15 Minutes, Pre-op/Pre-Proc 1347 (Given - Provider: Micha Bailey, PEDIATRIC NURSE-PODIATRIST ASSISTANT) HYDROmorphone (DILAUDID) injection 0.5 mg 0.5 mg, [...] Provider: Navin Clark MD - Comment: pulsavac certified wellness program coordinator) senna-docusate (SENOKOT-S) 8.6-50 MG per tablet 2 [...] BE BASED ON THE PRIMARY CLINICAL RECORDS. [employer] provides no warranty or guarantee of the accuracy or completeness of information in this document.
--- NOTE | 2023-10-28 07:50 | PC.NURSE ---
(8350) Patient taken to x-ray via wheelchair.
[2023-10-28] MEDS: LIDOCAINE HCL 10 ML, SODIUM BICARBONATE 1 MEQ INJ (08:20)
--- NOTE | 2023-10-28 08:44 | PC.NURSE ---
0843: pt returns from radiology.
[2023-10-28] MEDS: LACTATED RINGER'S SOLUTION 1,000 ML 50 ML IV (08:45)
--- NOTE | 2023-10-28 09:06 | PM.GSPRC ---
Date of procedure: 10/28/23 Indications for Procedure: Intraductal papilloma right breast on ultrasound-guided biopsy Pre-op diagnosis: Intraductal papilloma right breast Post-op diagnosis: same as pre-op Procedure: Wide excision intraductal papilloma right breast after wire needle localization for nonpalpable lesion Findings: Benign appearing breast tissue Anesthesia: SHAVON Surgeon: Josef Jackson Procedure Summary: 73-year-old female presents for wide excision of an intraductal papilloma which was found on diagnostic mammography and ultrasound and biopsied and I recommended wide excision due to less than 10% incidence of invasive breast cancer. Patient was taken the operating suite placed in supine position given a general anesthetic by the account manager employee benefits. The right breast was prepped and draped usual sterile fashion. A wire been placed into the right breast laterally at the 9 o'clock position by the radiologist. Preoperative antibiotics were given and a timeout was taken. Elliptical incision was made around the wire and all breast tissue surrounding the wire was excised with electrocautery maintaining hemostasis. Once the specimen was removed the wire was exposed superiorly therefore I went back and took another portion of breast tissue superior to to the original specimen with the wire and it and submitted all of this to radiology. There was nothing grossly suspicious in the specimen. Radiology department substantiated that the area in question had been obtained with biopsy marker within the specimen. The area was irrigated with saline and then the subcutaneous tissues were closed with 3-0 Vicryl suture in interrupted fashion subcutaneously and the skin was closed with 4-0 Monocryl suture in a running subcuticular fashion. Steri-Strips were applied and a sterile dressing was applied. Supervisor Money Room: FELY Fry Estimated blood loss (mL): 3 Complications: No Condition: stable Disposition: PACU
[2023-10-28] MEDS: CEFAZOLIN SODIUM/DEXTROSE,ISO 2 GM/50 ML PIGGYBACK IV (09:26)
[2023-10-28] MEDS: BUPIVACAINE HCL 0.5% PF 50 MG/10 ML VIAL 20 ML INJ (10:34)
== END 2023-10-28 11:36 | disposition home or self-care (01) ==
PROVIDERS: Radiology Diagnostic Radiology; PCP Family Medicine; Visit Provider Surgery
DX: D24.1 Benign neoplasm of right breast (principal); N60.21 Fibroadenosis of right breast; N60.81 Other benign mammary dysplasias of right breast; N62 Hypertrophy of breast; F17.210 Nicotine dependence, cigarettes, uncomplicated; E66.01 Morbid (severe) obesity due to excess calories; I48.91 Unspecified atrial fibrillation; Z79.01 Long term (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 anticoagulants; Z68.41 Body mass index [BMI] 40.0-44.9, adult; J44.9 Chronic obstructive pulmonary disease, unspecified; G47.33 Obstructive sleep apnea (adult) (pediatric); Z96.659 Presence of unspecified artificial knee joint; E78.5 Hyperlipidemia, unspecified; I10 Essential (primary) hypertension
CPT/HCPCS: 19125; 19285; 36415; 76098; 88307; 88341; 88342; A4648; J0665; J0690; J1100; J2250; J2704; J3010

== ENCOUNTER 2023-11-09 12:48 | Outpatient (OUT) | payer MEDICARE, SELFPAY ==
--- NOTE | 2023-11-09 | CT_ITS ---
[address] [address] Patient Name: SD REHMAN MRN: [id number] date: 1950 Sex: F Assigned Patient Location: CT Current Patient Location: Accession/Order Number: [id number] Exam Date: 11/09/2023 13:05 Report Date: 11/11/2023 05:00 At the request of: BREANNE GAO Procedure: CT lung screening low-dose EXAMINATION: CT lung screening low-dose HISTORY: nicotine dependence COMPARISON: CT lung cancer screening 11/05/2022 TECHNIQUE: Axial, Coronal, and Sagittal images were created without the administration of IV contrast material. Dose reduction techniques were achieved by using automated exposure control and/or adjustment of mA and/or kV according to patient size and/or use of iterative reconstruction technique. FINDINGS: LUNGS: Stable 1 cm spiculated opacity within lateral right upper lobe. Mild emphysematous changes. PLEURA: No mass, effusion, or pneumothorax. VASCULATURE: No abnormality. YOGESH: No mass or pathologic adenopathy. MEDIASTINUM: No mass or pathologic adenopathy. CARDIAC: No enlargement, pericardial thickening, or pericardial effusion. Coronary Artery calcifications: Coronary calcifications are moderate. AORTA: No aneurysm or dissection. CHEST WALL: 4.4 cm geographic shaped opacity within right breast. Free air within anterior right chest wall subcutaneous fat. No mass or axillary adenopathy BONES: No bone lesion or fracture. LIMITED ABDOMEN: 2.8 cm right renal mass versus cyst. Limited images of the upper abdomen. OTHER: Negative. CT/CT lung screening low-dose IMPRESSION: 1. Lung-RADS 2- Benign Appearance or Behavior. Nodules with a very low likelihood of becoming a clinically active cancer due to size or lack of growth. Follow-up CT Chest in 1 year. 2. Stable small spiculated opacity within lateral right upper lobe; described to be stable since at least 2018 on prior report. 3. Large opacity within the right breast with nearby free air. List of prior studies shows recent surgical resection within right breast on 10/28/2023. Findings compatible with postsurgical changes. 4. Right renal complex cyst versus mass, incompletely included on the study and not previously evaluated on other studies. Consider CT abdomen without and with IV contrast or ultrasound evaluation. Electronically authenticated by: TERESA AZUL Date: 11/11/2023 05:00
== END 2023-11-09 12:49 | disposition home or self-care (01) ==
LOC: CT 12:48
PROVIDERS: PCP Family Medicine; Visit Provider Internal Medicine
DX: F17.219 Nicotine dependence, cigarettes, with unspecified nicotine-induced disorders (principal); Z12.2 Encounter for screening for malignant neoplasm of respiratory organs
CPT/HCPCS: 71271

== ENCOUNTER 2024-01-28 09:26 | Outpatient (OUT) | payer MEDICARE, SELFPAY ==
[2024-01-28 10:09] LABS: Hematocrit 43.3 % (36.0-48.0); Mean Corpuscular HGB Conc 32.3 g/dL (29.9-35.2); Mean Corpuscular Hemoglobin 32.6 pg (26.7-34.0); Mean Corpuscular Volume 100.9 fL (81.0-99.0); Mean Platelet Volume 10.1 fL (9.5-13.5); Platelet Count 331 10^3/uL (150-450); Red Blood Count 4.29 10^6/uL (4.20-5.40); White Blood Count 11.4 10^3/uL (4.0-11.0)
[2024-01-28 10:51] LABS: Albumin Level 3.2 g/dL (3.4-5.0); Anion Gap 18.2; BUN Creatinine Ratio 22.4; Calcium 9.1 mg/dL (8.5-10.1); Carbon Dioxide 21.2 mmol/L (21.0-32.0); Chloride 106 mmol/L (98-107); Estimated GFR (African America 38 (>=60 mL/min/1.73m^2); Estimated GFR (Non-African Ame 31 (>=60 mL/min/1.73m^2); Glucose 110 mg/dL (74-106); Magnesium 1.9 mg/dL (1.8-2.4); Phosphorus 3.3 mg/dL (2.6-4.7); Potassium 4.4 mmol/L (3.5-5.1); Sodium 141 mmol/L (136-145); Uric Acid 5.8 mg/dL (2.6-6.0)
[2024-01-29 10:12] LABS: PTH, Intact 99 pg/mL (15-65)
== END 2024-01-28 09:27 | disposition home or self-care (01) ==
PROVIDERS: PCP Family Medicine; Visit Provider Internal Medicine
DX: I12.9 Hypertensive chronic kidney disease with stage 1 through stage 4 chronic kidney disease, or unspecified chronic kidney disease (principal); N18.30 Chronic kidney disease, stage 3 unspecified; E61.1 Iron deficiency; R80.9 Proteinuria, unspecified; M10.9 Gout, unspecified; N25.81 Secondary hyperparathyroidism of renal origin
CPT/HCPCS: 36415; 80069; 82306; 82570; 83735; 83970; 84156; 84550; 85027

== ENCOUNTER 2024-08-01 10:03 | Outpatient (OUT) | payer MEDICARE, SELFPAY ==
[2024-08-01 10:42] LABS: Hematocrit 41.3 % (36.0-48.0); Hemoglobin 13.6 g/dL (12.0-16.0); Mean Corpuscular HGB Conc 32.9 g/dL (29.9-35.2); Mean Corpuscular Hemoglobin 32.5 pg (26.7-34.0); Mean Corpuscular Volume 98.8 fL (81.0-99.0); Mean Platelet Volume 9.6 fL (9.5-13.5); Platelet Count 335 10^3/uL (150-450); Red Blood Count 4.18 10^6/uL (4.20-5.40); Red Cell Distribution Width 14.7 % (11.0-15.0); White Blood Count 10.5 10^3/uL (4.0-11.0)
[2024-08-01 11:19] LABS: Albumin Level 3.1 g/dL (3.4-5.0); Anion Gap 13.4; Calcium 9.6 mg/dL (8.5-10.1); Carbon Dioxide 25.2 mmol/L (21.0-32.0); Chloride 102 mmol/L (98-107); Estimated GFR (African America 38 (>=60 mL/min/1.73m^2); Estimated GFR (Non-African Ame 32 (>=60 mL/min/1.73m^2); Glucose 109 mg/dL (74-106); Magnesium 1.9 mg/dL (1.8-2.4); Potassium 4.6 mmol/L (3.5-5.1); Sodium 136 mmol/L (136-145); Uric Acid 5.1 mg/dL (2.6-6.0)
[2024-08-01 11:23] LABS: BUN Creatinine Ratio 21.3
[2024-08-02 09:08] LABS: PTH, Intact 81 pg/mL (15-65)
== END 2024-08-01 10:04 | disposition home or self-care (01) ==
LOC: LAB 10:04
PROVIDERS: PCP Family Medicine; Visit Provider Internal Medicine
DX: D72.829 Elevated white blood cell count, unspecified (principal); E78.5 Hyperlipidemia, unspecified; R80.9 Proteinuria, unspecified; M10.9 Gout, unspecified; N25.81 Secondary hyperparathyroidism of renal origin; I12.9 Hypertensive chronic kidney disease with stage 1 through stage 4 chronic kidney disease, or unspecified chronic kidney disease
CPT/HCPCS: 36415; 80069; 81001; 82306; 82570; 83735; 83970; 84156; 84550; 85027

== ENCOUNTER 2025-01-23 09:19 | Outpatient (OUT) | payer MEDICARE, SELFPAY ==
--- OUTSIDE RECORDS SUMMARY | 2025-01-23 09:30 | XMS_ITS | Clinical Summary ---
Author Organization [facility] Address [address] [place] [address] Care Team Providers Care Obstetrics Gynecology Physician Name Role Phone BehzadanastasiyaPatrick miller Primary Care Provider [phone] Allergies No known active allergies Medications MedicationSigDispense QuantityRefillsLast FilledStart DateEnd DateStatus albuterol 90 mcg/actuation inhaler albuterol sulfate HFA 90 mcg/actuation aerosol inhaler INHALE 2 PUFFS EVERY 4 HOURS NEEDED FOR SHORTNESS OF BREATHActive allopurinol (Zyloprim) 300 mg tablet allopurinol 300 mg tabletActive cholecalciferol (Vitamin D-3) 25 MCG (1000 UT) capsule Take 1,000 Units by mouth in the morning.Active cloNIDine (Catapres) 0.1 mg tablet clonidine HCl 0.1 mg tablet TAKE 1 TABLET BY MOUTH TWICE A DAY03/26/2022ctive colchicine 0.6 mg tablet colchicine 0.6 mg tablet TAKE 1 TABLET BY MOUTH EVERY DAY NEEDED FOR FLAREActive popscmylqpk-egqjlewtn-bitsctsp 100-62.5-25 mcg blister with device Trelegy Ellipta 100 mcg-62.5 mcg-25 mcg powder for inhalation INHALE 1 PUFF EVERY DAY BY INHALATION ROUTEActive furosemide (Lasix) 20 mg tablet Take by mouth in the morning.05/11/2022ctive loratadine (Claritin) 10 mg tablet Take 1 tablet by mouth if needed.Active rosuvastatin (Crestor) 20 mg tablet rosuvastatin 20 mg tablet TAKE 1 TABLET BY MOUTH EVERY DAYActive spironolactone (Aldactone) 25 mg tablet Take by mouth once daily as directed.Active traMADol (Ultram) 50 mg tablet 1-2 tabs every 6 hours as needed for severe pain02/19/2022ctive folic acid (Folvite) 800 mcg tablet Take by mouth in the morning.Active apixaban (Eliquis) 5 mg tablet Indications:H/O blood clotsTAKE 1 TABLET BY MOUTH EVERY 12 HOURS. THIS MEDICATION IS FOR BLOOD CLOT PREVENTION 180 tablet ctive dilTIAZem CD (Cardizem CD) 240 mg 24 hr capsule Indications:Essential hypertensionTake 1 capsule (240 mg) by mouth 2 times daily. 180 capsule ctive Active Problems ProblemNoted DateDiagnosed DateCigarette orsmsv4302/08/2024History of depression 02/08/2024denomatous polyp of ascending colon09/09/2023olon cancer screening 08/30/2023Gout08/24/2023Iron nqdghqwuri10/03/1491Ynefbmhodnz44/03/2024Secondary ltisquezcjboytspkuu36/03/2024entrilobular jaeoifgnb32rug- induced mental tggeeurl44Solitary pulmonary seybga8412/31/2022 07/22/2023-fiblaudicationlosed fracture of upper end of right tibia with routine jajoxkz88S/P revision of total knee, rightHypertensive kidney disease with stage 3b chronic kidney tmfxlax63Morbid qagygnr5706/14/2022 09/22/2022aroxysmal atrial munnyxlvmoko78Hyponatremia Idiopathic chronic gout of multiple sites without tophus Long term (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 non-steroidal anti-inflammatories (nsaid)/05/2022Stage 3a chronic kidney xorhgxp12 Complication of internal right knee nvrlhxiqda92/20/2023bnormal EKG005/29/2022 09/22/2022hronic yaqwmoiy70reast lump05/14/2022hronic obstructive lung twywxsj7805/14/20227290Jpxxt33/22/2594Xyotpjjreyen34/22/2023 Tjouckxakpuvao94/22/2023Hypertensive csypyrsx09/22/8919Fyoayzzruhgpjh58/22/2023 Ulevzkkxre63/22/2023olyp of colon05/14/2022Obstructive sleep apnea syndrome 06/20/2016Impaired fasting ntmfxub3607/04/2013 Family History Medical HistoryRelationNameCommentsCancerFatherHeart diseaseMotherHypertension MotherStrokeSisterRelationNameStatusCommentsBrotherAliveFatherDeceasedMother DeceasedSisterDeceased Social History Tobacco UseTypesPacks/DayYears UsedDateSmoking Tobacco: Every DayCigarettes Smokeless Tobacco: Never Tobacco Cessation:Ready to Q uit: Not Asked; Counseling Given: Not Answered Passive Exposure Comments:Currently not smoking due to having to be off prior to and after surgery. Last smoked end of Feb 2022.Alcohol UseStandard Drinks/Week CommentsYes1 (1 standard drink = 0.6 oz pure alcohol)occasionalUT Safety & EnvironmentAnswerDate RecordedFear of Current or Ex-PartnerNot on file05/14/2023 Emotionally AbusedNot on file05/14/2023hysically AbusedNot on file05/14/2023 Sexually AbusedNot on file4Physically or Sexually AbusedNot on file 05/14/2023CommentsNoSex and Gender InformationValueDate RecordedSex Assigned at GjvhzXsybdg24/02/2025 9:06 AM EDTLegal WvuYhgfdv60/29/2022 11:42 PM EDTGender YqebttjlJcczsv17/02/2025 9:06 AM EDTSexual OrientationHeterosexual or Jzcecuan47/02/2025 9:06 AM EDT Last Filed Vital Signs Vital SignReadingTime TakenCommentsBlood Qjbsisgu082/72007/25/2024 1:16 PM EDT Jspto302007/25/2024 1:16 PM EDTTemperature--Respiratory Rate--Oxygen Uljhnbxihr62% 07/25/2024 1:16 PM EDTInhaled Oxygen Concentration--Ntwdkx528 kg (229 lb) 07/25/2024 1:16 PM CJVJgvpfp843.5 cm (5' 2 )07/25/2024 1:16 PM EDTBody Mass Index41.8807/25/2024 1:16 PM EDT Plan of Treatment Health MaintenanceDue DateLast DoneCommentsCT Okunimccaosv67/07/1951FIT-DNA 1950FIT1950FOBT1950Medicare Annual Wellness (AWV)1950 Fhemttqazqrqv15/07/1951epression Ulgpmqgqt33/07/9393Fqlxmrcbd77/07/1992Zoster Vaccines (1 of 2)06/27/2001Fall Risk Krtnvxkzk58/07/2017Adult Sgwxpie9403/24/2019 03/24/2009COVID-19 Vaccine ( season)/10/2023, 02/02/2023, 01/16/2021, Additional history existsInfluenza Vaccine (#1)/10/2023, 02/02/2023, 01/03/2021, Additional history sebiznOjizfnoaori81/19/203406/ Colorectal Cancer Pkoyrzlyq48/19/2034Pneumococcal Vaccine: 50+ YearsCompleted 11/19/2022HIB VaccinesAged OutNo longer eligible based on patient's age to complete this topicHPV VaccinesAged OutNo longer eligible based on patient's age to complete this topicIPV VaccinesAged OutNo longer eligible based on patient's age to complete this topicMeningococcal B VaccineAged OutNo longer eligible based on patient's age to complete this topicMeningococcal VaccineAged OutNo longer eligible based on patient's age to complete this topicRotavirus Vaccines Aged OutNo longer eligible based on patient's age to complete this topic Insurance Care Teams Team MemberRelationshipSpecialtyStart DateEnd Date Patrick Linares DO [facility] - General05/14/22
--- OUTSIDE RECORDS SUMMARY | 2025-01-23 09:30 | XMS_ITS | Clinical Summary ---
Author Organization [facility] Address [address] [place] [address] Care Team Providers Care Dog Breeder Name Role Phone Unavailable Primary Care Provider Unavailabl e Social History Tobacco UseTypesPacks/DayYears UsedDateSmoking Tobacco: Never Assessed CommentsUnknownSex and Gender InformationValueDate RecordedSex Assigned at Not on fileLegal FalCeeend32/15/2023 7:40 PM EDTGender IdentityNot on fileSexual OrientationNot on file Last Filed Vital Signs Vital SignReadingTime TakenCommentsBlood Wtsuniyq044/7209 12:00 PM EDT Pulse--Temperature--Respiratory Rate--Oxygen Saturation--Inhaled Oxygen Concentration--Fjmusr336 kg (227 lb)12/11/2021 12:00 PM QACNwidan932.8 cm (5' 2.5 )12/11/2021 12:00 PM EDTBody Mass Index40.8612/11/2021 12:00 PM EDT Plan of Treatment Not on file Insurance
--- OUTSIDE RECORDS SUMMARY | 2025-01-23 09:30 | XMS_ITS | Clinical Summary ---
Author Organization [employer] Address [id number] [address] [place] [address] Care Team Providers Care Retirement Manager Name Role Phone RimaPatrick miller Primary Care Provider Allergies Active AllergyReactionsCriticalityNoted DateCommentsNo Known Drug Allergies 07/17/2016 Medications MedicationSigDispense QuantityRefillsLast FilledStart DateEnd DateStatus cholecalciferol, vitamin D3, 25 mcg (1,000 unit) capsule Take 1 capsule (1,000 Units total) by mouth in the morning.Active albuterol (PROVENTIL HFA;VENTOLIN HFA) 90 mcg/actuation inhaler Inhale 2 puffs every 6 (six) hours as needed for wheezing.Active TRELEGY ELLIPTA 100-62.5-25 mcg blister with device 03/25/2022ctive fluticasone (FLONASE SENSIMIST) 27.5 mcg/actuation nasal spray Administer 2 sprays into each nostril in the morning. 9.1 g 3Active acetaminophen (TYLENOL ARTHRITIS) 650 mg 8 hr tablet Take 1 tablet (650 mg total) by mouth every 8 (eight) hours as needed for pain. Active cloNIDine (CATAPRES) 0.1 mg tablet Indications:Essential (primary) hypertensionTAKE 1 TABLET (0.1 MG TOTAL) BY MOUTH IN THE MORNING AND AT BEDTIME 180 tablet 5Active rosuvastatin (CRESTOR) 40 mg tablet TAKE 1 TABLET (40 MG TOTAL) BY MOUTH IN THE MORNING 90 tablet 5Active allopurinoL (ZYLOPRIM) 300 mg tablet Indications:Gout, unspecifiedTake 1 tablet (300 mg total) by mouth in the morning. 90 tablet tive dilTIAZem LA (CARDIZEM LA) 240 mg 24 hr tablet Take 1 tablet (240 mg total) by mouth in the morning and at bedtime. 180 tablet tive apixaban (ELIQUIS) 5 mg tablet Indications:Personal history of other venous thrombosis and embolismTake 1 tablet (5 mg total) by mouth in the morning and 1 tablet (5 mg total) before bedtime. 180 tablet tive furosemide (LASIX) 20 mg tablet Take 1 tablet (20 mg total) by mouth daily. 90 tablet tive spironolactone (ALDACTONE) 25 mg tablet Take 1 tablet (25 mg total) by mouth in the morning. 90 tablet tive spironolactone (ALDACTONE) 25 mg tablet Take 1 tablet (25 mg total) by mouth in the morning. 90 tablet Discontinued(Reorder) furosemide (LASIX) 20 mg tablet Take 1 tablet (20 mg total) by mouth daily. 90 tablet Discontinued(Reorder) ELIQUIS 5 mg tablet Indications:Personal history of other venous thrombosis and embolismTAKE 1 TABLET BY MOUTH EVERY 12 HOURS FOR BLOOD CLOT PREVENTION 180 tablet Discontinued(Reorder) allopurinoL (ZYLOPRIM) 300 mg tablet Indications:Gout, unspecifiedTake 1 tablet (300 mg total) by mouth in the morning. 90 tablet Discontinued(Reorder) dilTIAZem LA (CARDIZEM LA) 240 mg 24 hr tablet Take 1 tablet (240 mg total) by mouth in the morning and at bedtime.01/17/2025 Discontinued(Reorder) Active Problems ProblemNoted DateDiagnosed DateHistory of bsdcithznf71/18/2024igarette smoker 02/08/2024denomatous polyp of ascending colon09/09/2023olon cancer screening 08/30/2023Gout08/24/2023Iron pkipnyxqtw48/03/7634Sfposihftmk35/03/2024Secondary tilhjarsmxyjjmffvop40/03/2024Solitary pulmonary vntefg4212/31/2022entrilobular aioowgrtw22/11/2023S/P revision of total knee, right06/19/2022losed fracture of upper end of right tibia with routine lpkiewi0406/19/2022Hypertensive kidney disease with stage 3b chronic kidney ulxbnmz0606/14/2022Morbid kwtcpqz5006/14/2022 Kvanuhwdxkqe32Idiopathic chronic gout of multiple sites without ixdccn60aroxysmal atrial qotgphabrulu10/20/2023 09/19/2022Mixed rtawifvgdjzowj63hronic /09/2023 Abnormal EKG005/29/2022reast lump05/14/2022hronic obstructive lung disease 05/14/20225956Chumv04/22/1437Mmnnadubyysm70/22/2035Kqppmzmnhvvmpx89/22/2023 Hypertensive yssvgabf85/22/5166Dinpazdvgoekyx75/22/7643Kohrdpwyuu10/22/2023olyp of colon05/14/2022Obstructive sleep apnea cgfnesin43/31/2017Impaired fasting ueagkbm5807/04/2013-fib Resolved Problems ProblemNoted DateDiagnosed DateResolved DateDrug-induced mental disorder /7192Mtxiokzlckud49/30/202306/05/2023Stage 3a chronic kidney zfiskgl48 Encounters DateTypeDepartmentCare YbpyFhjdbqembge48/28/2025[facility] [address] [place] [address] Tracey Rand, HANS Gout, unspecified; Personal history of other venous thrombosis and coydwnqc37/14/2025Ref[facility] [address] [place] [address] Patrick Linares DO from Last 3 Months Immunizations ImmunizationAdministration DatesNext DueCOVID-19, mRNA, LNP-S, PF, 100mcg/0.5mL Dose06/21/2020,05/22/2020Influenza Vaccine, Quadrivalent, Meqrwmnfus53/13/2023, 01/25/2020Influenza, High-dose, Nxzszqxywxtv09/14/2021Influenza, Trivalent, Hybeoicgyb93/08/2024neumococcal Conjugate 20-rkrfnj5011/19/2022RSV, recombinant, protein subunit RSVpreF, adjuvant reconstituted, 0.5 mL, PF11/19/2022Tdap 03/24/2009 Family History Medical HistoryRelationNameCommentsArthritisBrotherMichaelArthritisFatherLung cancerFatherArthritisMotherAtrial fibrillationMotherDeep vein thrombosisMother HypertensionMotherPulmonary embolismMotherbilateralArthritisSister 1KathyThyroid diseaseSister 2SharonNo Known ProblemsSister 3JeanieArthritisSister 4CarolynDown syndromeSister 4CarolynStrokeSister 4CarolynRelationNameStatusCommentsBrother MichaelAliveFatherDeceasedMotherDeceasedSister 1KathyAliveSister 2SharonAlive Sister 3JeanieAliveSister 4CarolynDeceased Social History Tobacco UseTypesPacks/DayYears UsedDateSmoking Tobacco: Every GycMciktddits025.6 Started: 06/27/1972 Tobacco Cessation:Ready to Q uit: Not Asked; Counseling Given: Not Answered Alcohol UseStandard Drinks/WeekCommentsYes5 (1 standard drink = 0.6 oz pure alcohol)occasionalAHC UtilitiesAnswerDate RecordedIn the past 12 months has the [employer], [employer], or [employer] threatened to shut off services in your home?No08/24/2023Social Connection and Isolation PanelAnswerDate RecordedIn a typical week, how many times do you talk on the phone with family, friends, or neighbors?More than three times a week09/29/2024How often do you get together with friends or relatives?More than three times a week09/29/2024How often do you attend orthodoxy or taoist services?Never09/29/2024Do you belong to any clubs or organizations such as orthodoxy groups, unions, fraternal or athletic groups, or school groups?Yes09/29/2024How often do you attend meetings of the clubs or organizations you belong to?Never09/29/2024re you , , , , never , or living with a partner?Bwyhlyv6909/29/2024UDIT-C AnswerDate RecordedQ1: How often do you have a drink containing alcohol?2-4 times a month09/18/2022Q2: How many drinks containing alcohol do you have on a typical day when you are drinking?Patient does not drink09/18/2022Q3: How often do you have six or more drinks on one occasion?Never09/18/2022Overall Financial Resource Strain (CARDIA)AnswerDate RecordedHow hard is it for you to pay for the very basics like food, housing, medical care, and heating?Not hard at all 09/18/2022HQ-2AnswerDate RecordedTotal Jezsz474F[facility] [place] of Occupational Health - Occupational Stress QuestionnaireAnswerDate RecordedDo you feel stress - tense, restless, nervous, or anxious, or unable to sleep at night because yourmind is troubled all the time - these days?Not at all09/18/2022 Exercise Vital SignAnswerDate RecordedOn average, how many days per week do you engage in moderate to strenuous exercise (like a brisk walk)?0 days09/29/2023On average, how many minutes do you engage in exercise at this level?0 min 09/29/2023RAPARE - TransportationAnswerDate RecordedIn the past 12 months, has lack of transportation kept you from medical appointments or from getting medications?No09/18/2022In the past 12 months, has lack of transportation kept you from meetings, work, or from getting things needed for daily living?No 09/18/2022Housing InstabilityAnswerDate RecordedAre you worried or concerned that in the next two months you may not have stable housing that you own, rent or stay in as a part of a household?No09/18/2022hildcareAnswerDate RecordedDo problems getting child adolescent care make it difficult for you to work or study?No 09/18/2022EmploymentAnswerDate RecordedDo you need help finding a local career center and/or a training program?No09/18/2022Hunger ScreeningAnswerDate Recorded Within the past 12 months we worried whether our food would run out before we got money to buy more.Never True09/29/2024Within the past 12 months the food we bought just didn't last and we didn't have money to get more.Never True 09/29/2024Purpose - LifeAnswerDate RecordedI have a purpose and direction in my life.Strongly Agree09/18/2022CommentsNoSex and Gender InformationValue Date RecordedSex Assigned at BirthNot on fileLegal WmoNaadjs78/06/2015 11:47 AM EDTGender IdentityNot on fileSexual OrientationNot on file Last Filed Vital Signs Vital SignReadingTime TakenCommentsBlood Tqxsmgqs259/78009/29/2024 1:07 PM EDT Ornhr8057/05/2025 1:04 PM BQAXbkseqpyudx72.5 ??C (97.7 ??F)08/25/2024 1:04 PM EDTRespiratory Mnfy855608/25/2024 1:04 PM EDTOxygen Dboptehsmz91%08/25/2024 1:04 PM EDTInhaled Oxygen Concentration--Glofgu297.9 kg (229 lb)09/29/2024 1:07 PM WIHYxfrvy737.5 cm (5' 2 )09/29/2024 1:07 PM EDTBody Mass Index41.8809/29/2024 1:07 PM EDT Plan of Treatment DateTypeDepartmentCare Team (Latest Contact Info)Bhtwvwarsjj99/14/2026 2:00 PM EDTOffice Visit [facility] [address] [place] [address] Health MaintenanceDue DateLast AxkaQzplcwmlWgoavgofu45/18/202506/, 09/08/2023, 09/08/2023, Additional history existsInfluenza Jmamzdi8011/21/2024 01/29/2024, 02/02/2023, 01/03/2021, Additional history existsDTaP,Tdap and Td Vaccines (2 - Td or Tdap)/04/2009Postponed from 03/24/2019 (Vaccine Not Available)Tobacco Gmntlzljge47/01/2026Postponed from 1950 (Not Indicated)Zoster (Shingles) Vaccine (1 of 2)03/23/2025Postponed from 06/27/1970 (Vaccine Not Available)Adult BMI Follow Up Plan/dult BMI Jdghimfow98Depression Jsnkfllwm12Fall Risk Smxwvihut27Medicare Annual Wellness Visit/12/2024, 09/29/2023, 09/18/2022Tobacco Poowtxwml17olonoscopy09/08/2033 09/09/2023, 09/09/2023SV ( or age 60+ yrs)Cnuyswhnm51/30/2023OVID-19 AmnuiciWekjoooarpyv66/08/2024, 02/02/2023, 01/16/2021, Additional history exists Medical Devices Not on file Procedures Procedure NamePriorityDate/TimeAssociated DiagnosisCommentsPROVATION COLONOSCOPY Cqzlpzt1409/09/2023 9:13 AM EDT HM KLINUVDRQHAMyhxpce41/18/2024 2:00 PM EDTfrom Last 3 Months or Most Recently Relevant to Health Maintenance Results * Colonoscopy Report (09/09/2023 9:13 AM EDT)Specimen (Source)Anatomical Location / LateralityCollection Method / VolumeCollection TimeReceived Time Narrative SYSTEMGENERATED, DOCUMENTATION - 09/09/2023 9:13 AM EDT This order has been auto-finalized for image and report archival in PACs. *For full report details, please reach out to your physician. ??This image is visible to you in MyChart.* Authorizing ProviderResult TypeResult StatusTeto King DOIMG OR IMG ORDERABLES Final Result * HM MAMMOGRAPHY (09/08/2023 2:00 PM EDT)Anatomical RegionLateralityModality Other Narrative Authorizing ProviderResult TypeResult StatusPatrick Linares DOHEALTH MAINTENANCEFinal Result from Last 3 Months or Most Recently Relevant to Health Maintenance Insurance Care Teams Team MemberRelationshipSpecialtyStart DateEnd Date Patrick Linares DO [address] [facility] [place] [address] PCP - GeneralFamily Medicine06/13/16
--- OUTSIDE RECORDS SUMMARY | 2025-01-23 09:30 | XMS_ITS | Encounter Summary ---
Author Organization [facility] [employer] Address [id number] [place] [address] Care Team Providers Care Scanning Tech Name Role Phone BehzadanastasiyaPatrick miller Primary Care Provider + [phone] Encounter Details DateTypeDepartmentCare Team (Latest Contact Info)Dhyyswloxjp43/28/2025Refill [facility] - Family Medicine [address] [place] [id number] Tracey Rand, HANS Gout, unspecified; Personal history of other venous thrombosis and embolism Social History Tobacco UseTypesPacks/DayYears UsedDateSmoking Tobacco: Every MshMmzegltuys757.6 Started: 06/27/1972Alcohol UseStandard Drinks/WeekCommentsYes5 (1 standard drink = 0.6 oz pure alcohol)occasionalAHC UtilitiesAnswerDate RecordedIn the past 12 months has the Member Desk, gas, oil, or water [employer] threatened to shut off services in your home?No08/24/2023Social Connection and Isolation PanelAnswer Date RecordedIn a typical week, how many times do you talk on the phone with family, friends, or neighbors?More than three times a week09/29/2024How often do you get together with friends or relatives?More than three times a week 09/29/2024How often do you attend baptist or pentecostal services?Never09/29/2024Do you belong to any clubs or organizations such as baptist groups, unions, fraternal or athletic groups, or school groups?Yes09/29/2024How often do you attend meetings of the clubs or organizations you belong to?Never09/29/2024re you , , , , never , or living with a partner?Vgubyas3609/29/2024UDIT-CAnswerDate RecordedQ1: How often do you have a [...] housing, medical care, and heating?Not hard at all09/18/2022HQ-2AnswerDate RecordedTotal [id number] [place] [facility] Occup[facility] Health - Occupational Stress QuestionnaireAnswerDate RecordedDo you feel stress - tense, restless, nervous, or anxious, or unable to sleep at night because yourmind is troubled all the time - these days?Not at all09/18/2022Exercise Vital SignAnswerDate RecordedOn average, how many days per week do you engage in moderate to strenuous exercise (like a brisk walk)?0 days09/29/2023On average, how many minutes do you engage in exercise at this level?0 min09/29/2023RAPARE - TransportationAnswerDate RecordedIn the past 12 months, has lack of transportation kept you from medical appointments or from getting medications?No09/18/2022In the past 12 months, has lack of transportation kept you from meetings, work, or from getting things needed for daily living?No09/18/2022Housing InstabilityAnswerDate RecordedAre you worried or concerned that in the next two months you may not have stable housing that you own, rent or stay in as a part of a household?No09/18/2022 ChildcareAnswerDate RecordedDo problems getting early childhood director make it difficult for you to work or study?No09/18/2022EmploymentAnswerDate RecordedDo you need help finding a local career center and/or a training program?No09/18/2022Hunger ScreeningAnswerDate RecordedWithin the past 12 months we worried whether our food would run out before we got money to buy more.Never True09/29/2024Within the past 12 months the food we bought just didn't last and we didn't have money to get more.Never True09/29/2024Purpose - LifeAnswerDate RecordedI have a purpose and direction in my life.Strongly Agree09/18/2022CommentsNoSex and Gender InformationValueDate RecordedSex Assigned at BirthNot on fileLegal LgxZbrghg42/06/2015 11:47 AM EDTGender IdentityNot on fileSexual OrientationNot on filedocumented as of this encounter Plan of Treatment DateTypeDepartmentCare Team (Latest Contact Info)Vrirkklsavd65/14/2026 2:00 PM EDTOffice Visit [facility] [address] [place] [address] documented as of this encounter Visit Diagnoses Diagnosis Gout, unspecified Personal history of other venous thrombosis and embolism documented in this encounter Additional Health Concerns AssessmentNoted TimePHQ-9 Depression Total Score: 1:12 PM EDTA Body Mass Index follow-up plan has been documented for the kziyvrx5008/25/2024 2:28 PM EDTdocumented as of this encounter Care Teams Team MemberRelationshipSpecialtyStart DateEnd Date Patrick Linares DO [address] [place] [place] [address] PCP - GeneralFamily Medicine06/13/16documented as of this encounter
[2025-01-23 09:58] LABS: Hematocrit 42.9 % (36.0-48.0); Hemoglobin 14.2 g/dL (12.0-16.0); Mean Corpuscular HGB Conc 33.1 g/dL (29.9-35.2); Mean Corpuscular Hemoglobin 32.9 pg (26.7-34.0); Mean Corpuscular Volume 99.3 fL (81.0-99.0); Platelet Count 349 10^3/uL (150-450); Red Blood Count 4.32 10^6/uL (4.20-5.40); White Blood Count 10.7 10^3/uL (4.0-11.0)
[2025-01-23 10:31] LABS: Albumin Level 3.4 g/dL (3.4-5.0); Anion Gap 11.4; Blood Urea Nitrogen 34.0 mg/dL (7.0-18.0); Calcium 9.2 mg/dL (8.5-10.1); Carbon Dioxide 24.2 mmol/L (21.0-32.0); Chloride 102 mmol/L (98-107); Estimated GFR (African America 37 (>=60 mL/min/1.73m^2); Estimated GFR (Non-African Ame 30 (>=60 mL/min/1.73m^2); Glucose 108 mg/dL (74-106); Magnesium 1.9 mg/dL (1.8-2.4); Potassium 4.6 mmol/L (3.5-5.1); Sodium 133 mmol/L (136-145); Uric Acid 5.5 mg/dL (2.6-6.0)
== END 2025-01-23 09:20 | disposition home or self-care (01) ==
PROVIDERS: PCP Family Medicine; Visit Provider Internal Medicine
DX: D72.829 Elevated white blood cell count, unspecified (principal); E78.5 Hyperlipidemia, unspecified; R80.9 Proteinuria, unspecified; M10.9 Gout, unspecified; N25.81 Secondary hyperparathyroidism of renal origin; I12.9 Hypertensive chronic kidney disease with stage 1 through stage 4 chronic kidney disease, or unspecified chronic kidney disease
CPT/HCPCS: 36415; 80069; 81001; 82306; 82570; 83735; 83970; 84156; 84550; 85027